=== PATIENT | female | born 1950 | race Caucasian/White ===

== ENCOUNTER 2022-05-20 12:30 | Outpatient (REF) | payer MEDICARE, OTHER, SELFPAY ==
--- NOTE | ~2022-05-20 | XR_ITS ---
EXAMINATION: XR CHEST CLINICAL INFORMATION: R13.10 - Dysphagia, unspecified COMPARISON: None TECHNIQUE: 2 views of the chest were obtained. FINDINGS: The lungs are clear. There is no airspace consolidation, groundglass opacity, or effusion. The heart is normal in size. Vascularity is normal. The costophrenic sulci are clear. The hilar and mediastinal contours are normal. Bony structures show mild multilevel degenerative changes thoracic spine. There are scattered bone islands involving the bilateral humeral heads and proximal humeral shaft which may be related to benign osteopoikilosis. There is also a calcification adjacent to proximal medial neck left humerus consistent with calcific tendinosis in long head biceps. XR/XR chest 2V IMPRESSION: -Lungs clear. No acute intrathoracic disease. 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
--- NOTE | 2022-05-20 12:39 | ECG_ITS ---
Test Reason : RENSTEPHANIES HI Blood Pressure : / mmHG Vent. Rate : 093 BPM Atrial Rate : 093 BPM P-R Int : 156 ms QRS Dur : 126 ms QT Int : 388 ms P-R-T Axes : 056 -79 007 degrees QTc Int : 482 ms Normal sinus rhythm Possible Left atrial enlargement Right bundle branch block Left anterior fascicular block Bifascicular block Abnormal ECG No previous ECGs available Referred By: Marley Perez Electronically Signed By:JERRY LERNER
[2022-05-20 13:02] LABS: MANUAL DIFF FLAG NO
[2022-05-20 13:23] LABS: Basophils Absolute Auto 0.1 X10*3/uL (0.0-0.2); Basophils Percent Auto 0.7 % (0-2); Eosinophils Absolute Auto 0.5 X10*3/uL (0.0-0.4); Eosinophils Percent Auto 6.7 % (0-4); Hematocrit 36.6 % (37.0-47.0); Imm Gran Abs Auto 0.03 X10*3/uL (0.00-0.03); Imm Gran Pct Auto 0.4 % (0.0-0.4); Lymphocytes Absolute Auto 1.7 X10*3/uL (1.2-4.9); Lymphocytes Percent Auto 22.4 % (20-40); Mean Corpuscular HGB Conc 32.8 g/dl (31.0-35.0); Mean Corpuscular Hemoglobin 30.8 pg (27.0-33.0); Mean Corpuscular Volume 94.1 fL (80.0-98.0); Mean Platelet Volume 9.4 fL (9.4-12.3); Monocytes Absolute Auto 0.6 X10*3/uL (0.1-1.2); Monocytes Percent Auto 8.1 % (2-11); Neutrophils Absolute Auto 4.7 x10*3/uL (2.0-8.3); Neutrophils Percent Auto 61.7 % (45-73); Platelet Count 328 X10*3/uL (160-400); Red Blood Count 3.89 X10*6/uL (4.20-5.50); Red Cell Distribution Width 13.3 % (11.0-16.0); White Blood Count 7.7 X10*3/uL (4.8-10.8)
[2022-05-20 14:05] LABS: Alanine Aminotransferase 22 U/L (0-31); Aspartate Amino Transferase 26 U/L (5-31); C Reactive Protein 0.42 mg/dL (< or = 0.50); Estimated Glomerular Filt Rate > 60
[2022-05-20 14:06] LABS: Erythrocyte Sedimentation Rate 55 MM/HR (0-20)
[2022-05-20 14:23] LABS: Creatinine Urine 166.22 mg/dL; Microalbum/Creatinine Ratio Ur 20.4 ug/mg cr
[2022-05-21 12:18] LABS: Anti DNA DS Antibody 1 IU/mL; Anti-Centromere B Antibodies >8.0 POS AI (<1.0 NEG); Antibody to SS-A Antigen <1.0 NEG AI (<1.0 NEG); Antibody to SS-B Antigen <1.0 NEG AI (<1.0 NEG); SM/Ribonucleoprotein Ab <1.0 NEG AI (<1.0 NEG); Scleroderma 70 Antibody <1.0 NEG AI (<1.0 NEG); Smith Protein <1.0 NEG AI (<1.0 NEG)
== END 2022-05-20 12:31 | disposition home or self-care (01) ==
LOC: HO.LAB 12:30
PROVIDERS: PCP Nurse Practitioner Family; Visit Provider Nurse Practitioner Family
DX: R76.8 Other specified abnormal immunological findings in serum (principal); R13.10 Dysphagia, unspecified; I73.00 Raynaud's syndrome without gangrene; R06.09 Other forms of dyspnea; I78.1 Nevus, non-neoplastic
CPT/HCPCS: 36415; 71046; 82043; 82565; 84450; 84460; 85025; 85652; 86038; 86140; 86225; 86235; 93005; 99202

== ENCOUNTER 2022-06-17 14:08 | Outpatient (REF) | payer MEDICARE, OTHER, SELFPAY ==
--- NOTE | 2022-06-17 14:11 | CA_ITS ---
Transthoracic Echocardiogram Patient (Last, First, Middle): Rajani Hart, Gender: Female Date of : 1950 Age: 71 Procedure Date: 06/17/2022 Procedure Type: Transthoracic Echocardiogram Location: OP Height: 160.02 cm Weight: 78.02 kg BSA: 1.81 m2 Heart Rate: bpm BP: 126 / 90 mmHg Senior Health Educator: TO Referring MD: Marley Perez RECRUITMENT SPECIALIST Symptoms: dyspnea on exertion Study Quality: Fair/Contrast ECG Rhythm: Sinus tachycardia Conclusions: - The left ventricular systolic function is hyperdynamic. The calculated ejection fraction is 71% by biplane method. - There is mild calcification of the aortic valve. - There is moderate mitral annular calcification. - There is no evidence of pulmonary hypertension. - There is a small loculated pericardial effusion overlying the left ventricle and right atrium. Findings Procedure Information Contrast agent, definity, is being given per protocol without apparent complications. Left Ventricle Normal left ventricular cavity size. There is mildly increased left ventricular wall thickness. The left ventricular systolic function is hyperdynamic. The calculated ejection fraction is 71% by biplane method. There is no evidence of regional wall motion abnormalities. Diastolic function is normal for age. Right Ventricle Normal right ventricular cavity size and systolic function. Atria Both atria are normal in size. Aortic Valve There is a normal trileaflet aortic valve. There is mild calcification of the aortic valve. There is no aortic valve stenosis. There is no aortic valve regurgitation. Mitral Valve There is moderate mitral annular calcification. There is trace mitral valve regurgitation. There is no mitral valve stenosis. Pulmonic Valve The pulmonic valve is likely normal. Tricuspid Valve There is trace tricuspid valve regurgitation. There is no evidence of pulmonary hypertension. Great Vessels The aortic annulus, sinuses of valsalva, and asc aorta are normal in size. Venous The inferior vena cava is normal in size and collapses greater than 50% with inspiration. Pericardium/Pleural There is a small loculated pericardial effusion overlying the left ventricle and right atrium. Prior Study Comparison No prior study available for comparison. Measurements 2D Linear Measurements IVSd: 1.07 0.6-0.9/0.6-1.0 cm LVIDd: 3.31 3.9-5.3/4.2-5.9 cm LVIDd Index: 1.83 2.4-3.2/2.2-3.1 cm/m2 LVIDs: 2.15 2.0-3.6 cm LVPWd: 1.03 0.7-1.1 cm LA Diam: 3.00 2.7-3.8/3.0-4.0 cm LAIDs Index: 1.66 1.5-2.3 cm/m2 LV Mass: 126.96 67-162/88-224 g LV Mass Index: 70.14 43-95/49-115 g/m2 LVOT Diam: 2.00 3.0+(-)1.3 cm 2D Systolic Function EF 4C: 69.60 >55% EF 2C: 73.80 >55% EF BiP: 71.20 >55% Mitral Valve MV VTI: 0.26 MV Pk Irwin: 1.56 MV Mn Irwin: 0.96 MV Pk Grad: 10.00 MV Mn Grad: 4.00 MV Pk E: 0.79 MV PK A: 1.38 MV Decel Time: 116.00 E/A: 0.60 E'Lateral: 5.66 E'Medial: 5.00 E/E' Med: 15.90 E/E' Lat: 14.00 PHT: 34.00 MVA PHT: 6.47 MVA Continuity: 2.16 Decel [place]: 6.86 Aortic Valve AoV Pk Irwin: 1.43 AoV Mn Irwin: 1.03 AoV VTI: 0.27 AoV Pk Grad: 8.00 Aov Mn Grad: 5.00 VASILIY Cont.VTI: 2.08 LVOT LVOT Pk Irwin: 1.06 LVOT Mn Irwin: 0.70 LVOT VTI: 0.18 LVOT Pk Grad: 4.00 LVOT Mn Grad: 2.00 LVOT Diam: 2.00 LVOT Area: 3.14 Diastolic Function MV Pk E: 0.79 MV Pk A: 1.38 E/A: 0.60 E'Medial: 5.00 E/E' Med: 15.90 E' Laterial: 5.66 E/E' Lat: 14.00 Right Ventricle TAPSE (mm): 22.00 TVS' Irwin: 12.00 Tricuspid Valve TR Pk Irwin: 201.00 TR Pk Grad: 16.00 RA Press: 3.00 Great Vessels Aorta Sinus of Valsalva: 3.08 2.0-3.[address] [place]: 2.22 1.7-3.4 cm Ao Asc: 3.10 2.1-3.4 cm Updated in Other Vendor System with Status of Final Chad Teran MD electronically signed on 06/18/2022 9:08:03 AM with status of Final
--- NOTE | 2022-06-17 16:35 | PFT_ITS ---
FLOWS: FEV1 114% of predicted at 2.41 L. FVC 109% of predicted at 3.06 L. FEV1 to FVC ratio of 0.79. No bronchodilator response except in small to medium airways. LUNG VOLUMES: Total lung capacity 91% of predicted at 4.49 L. Residual volume 69% of predicted at 1.50 L. Slow vital capacity 109% of predicted at 2.99 L. Expiratory reserve volume 147% of predicted at 0.93 L. Diffusion capacity is moderately decreased. IMPRESSION: No obstructive or restrictive ventilatory defect. No bronchodilator response except in small to medium airways. Decreased diffusion capacity suggests emphysema. MD JERRY Huffman/MODL / [id number]
== END 2022-06-17 14:09 | disposition home or self-care (01) ==
LOC: HO.RESP 14:08
PROVIDERS: Visit Provider Nurse Practitioner Family
DX: R76.8 Other specified abnormal immunological findings in serum (principal); I73.00 Raynaud's syndrome without gangrene; R06.09 Other forms of dyspnea
CPT/HCPCS: 93306; 94060; 94727; 94729; Q9957

== ENCOUNTER → 2022-06-19 14:15 | Outpatient (BNVA) | payer MEDICARE, OTHER, SELFPAY | PROVIDERS: PCP Physician Assistant Surgical; Visit Provider Nurse Practitioner Family | DX: R06.09 Other forms of dyspnea (principal); M34.1 CR(E)ST syndrome; R13.10 Dysphagia, unspecified; R76.8 Other specified abnormal immunological findings in serum; I73.00 Raynaud's syndrome without gangrene; I78.1 Nevus, non-neoplastic | CPT/HCPCS: 99212 ==

== ENCOUNTER 2022-06-20 08:49 | Outpatient (REF) | payer MEDICARE, OTHER, SELFPAY ==
--- NOTE | ~2022-06-20 | FL_ITS ---
EXAMINATION: FL BARIUM SWALLOW CLINICAL INFORMATION: Dysphagia COMPARISON: None TECHNIQUE: Barium swallow examination is performed using fluoroscopic evaluation in addition to multiple fluoroscopic spot views. The patient is imaged both upright and prone and using both thick and thin sulfate along with effervescent granules. Fluoroscopy time: 2.5 minutes DAP: 10.9 Gycm2 Images: 56 FINDINGS: Following oral administration of thick barium, barium-coated turkey in upright view, there is normal propagation bolus from the oral cavity through the pharynx, esophagus into stomach without any evidence of obstruction, narrowing or stricture. The course, caliber and peristalsis of the stomach, duodenal bulb and the sweep is normal. On placing patient supine and administration of thin barium, there is normal distention of the esophagus without any obstruction or extrinsic compression. There is a small sliding hiatal hernia with moderate gastroesophageal reflux. FL/FL barium swallow IMPRESSION: Small sliding hiatal hernia with moderate gastroesophageal reflux.
== END 2022-06-20 08:50 | disposition home or self-care (01) ==
LOC: HO.XRAY 08:49
PROVIDERS: PCP Nurse Practitioner Family; Visit Provider Nurse Practitioner Family
DX: R13.10 Dysphagia, unspecified (principal)
CPT/HCPCS: 74220

== ENCOUNTER → 2022-07-04 14:40 | Outpatient (BNVA) | payer MEDICARE, OTHER, SELFPAY | PROVIDERS: PCP Nurse Practitioner Family; Visit Provider Internal Medicine Pulmonary Disease | DX: R06.00 Dyspnea, unspecified (principal); R94.2 Abnormal results of pulmonary function studies; M34.1 CR(E)ST syndrome; Z87.891 Personal history of nicotine dependence | CPT/HCPCS: 99202 ==

== ENCOUNTER → 2022-07-07 10:01 | Outpatient (BNVA) | payer MEDICARE, OTHER, SELFPAY | PROVIDERS: PCP Physician Assistant Surgical; Visit Provider Internal Medicine | DX: R13.10 Dysphagia, unspecified (principal); M34.1 CR(E)ST syndrome; M35.9 Systemic involvement of connective tissue, unspecified; K11.7 Disturbances of salivary secretion | CPT/HCPCS: 99202 ==

== ENCOUNTER 2022-07-11 12:44 | Outpatient (REF) | payer MEDICARE, OTHER, SELFPAY ==
--- NOTE | ~2022-07-11 | CT_ITS ---
EXAMINATION: CT CHEST WITHOUT CONTRAST, HIGH-RESOLUTION. CLINICAL INFORMATION: Dyspnea. COMPARISON: Chest x-ray 05/20/2022 TECHNIQUE: 5 mm axial and high-resolution 1.5 mm thin axial followed by 3 mm thin coronal and sagittal reconstructions of chest were obtained without contrast. DLP: 142 mGy-cm FINDINGS: LUNGS: The lungs are well-expanded and clear of acute pneumonic process. There are several noncalcified and calcified nodules.. There is a 3 mm nodule, left upper lobe, axial image 56/6; 1 mm peripheral nodule, left upper lobe, axial image 95/6; 2 mm thickening left major fissure, axial image 107/6, likely intrafissural lymph node; and a punctate 1 mm calcified nodule, left lung base lateral basal segment, image 173/6. There is 2 mm calcified nodule, right upper lobe, axial image 62/6; 2 mm calcified nodule, right lower lobe superior segment, axial image 93/6; 2 mm 2 nodules adjacent to each other, superior segment right lower lobe, axial image 96/6 and 98/6; 3 mm nodule, medially right upper lobe, axial image 97/6; 5 mm nodule in right major fissure likely lymph node, axial image 124/6, and diffuse mild thickening of inferior right major fissure. MEDIASTINUM: The right thyroid lobe is enlarged and hypodense. The upper trachea is deviated to the left from enlarged thyroid nodule. Central trachea and bronchial airways are widely patent. Heart size and the great vessels are normal caliber. No pericardial effusion seen. There is moderate coronary artery and mitral valve calcifications. No abnormal size mediastinal or hilar lymph nodes seen PLEURA: There is no pleural thickening, effusion or pneumothorax. AXILLA: There is no abnormal axillary lymph nodes seen. The chest wall is unremarkable. UPPER ABDOMEN: Visualized liver, spleen, pancreas and bilateral adrenal glands are unremarkable. No radiopaque gallstone seen. OSSEOUS STRUCTURES: Bone windows reveal no calvarial abnormality. There is mild ventral spondylosis dorsal spine. No aggressive lytic or sclerotic process. CT/CT chest wo con - High Res IMPRESSION: 1. Multiple bilateral calcified and noncalcified nodules in the range of 1 to 3 mm None of these nodules are suspicious. Recommend CT chest in 1 year as per Fleischner guidelines depending on patient risk factors. 2. Enlarged right thyroid lobe with a nodule deviating trachea to the left. Correlate with ultrasound.
== END 2022-07-11 12:45 | disposition home or self-care (01) ==
LOC: HO.CT 12:44
PROVIDERS: Visit Provider Nurse Practitioner Family
DX: R06.09 Other forms of dyspnea (principal); M34.1 CR(E)ST syndrome
CPT/HCPCS: 71250

== ENCOUNTER → 2022-08-11 09:18 | Outpatient (BNVA) | payer MEDICARE, OTHER, SELFPAY | PROVIDERS: PCP Physician Assistant Surgical; Referring Provider Nurse Practitioner Family; Visit Provider Internal Medicine Cardiovascular Disease | DX: R06.09 Other forms of dyspnea (principal); I45.2 Bifascicular block; I31.39 Other pericardial effusion (noninflammatory); I10 Essential (primary) hypertension | CPT/HCPCS: 93005; 99202 ==

== ENCOUNTER → 2022-08-13 11:48 | Outpatient (BNVA) | payer MEDICARE, OTHER, SELFPAY | PROVIDERS: PCP Physician Assistant Surgical; Visit Provider Nurse Practitioner Family | DX: R13.10 Dysphagia, unspecified (principal); R76.8 Other specified abnormal immunological findings in serum; I73.00 Raynaud's syndrome without gangrene; R06.09 Other forms of dyspnea; E04.9 Nontoxic goiter, unspecified; I78.1 Nevus, non-neoplastic | CPT/HCPCS: 99212 ==

== ENCOUNTER 2022-08-14 10:14 | Outpatient (REF) | payer MEDICARE, OTHER, SELFPAY ==
--- NOTE | ~2022-08-14 | US_ITS ---
EXAMINATION: US THYROID CLINICAL INFORMATION: Enlarged thyroid. COMPARISON: None TECHNIQUE: Linear transducer grayscale and color Doppler examination with attention to the region of the thyroid. FINDINGS: SIZE: Measurements of the thyroid lobes and nodules are given in sagittal, anteroposterior and transverse dimensions respectively. Right Thyroid Lobe: 5.33 x 2.04 x 1.85 cm, volume 10.6 mL. Parenchyma: The gland echotexture is heterogeneous. Thyroid vascularity is increased. Left Thyroid Lobe: 5.18 x 1.59 x 0.74 cm, volume 3.19 mL. Parenchyma: The gland echotexture is homogeneous. Thyroid vascularity is normal. Isthmus: 0.23 cm in maximum AP dimension. Estimated total number of nodules greater than or equal to 1 cm: 1. Nurse Ldr nodules are described as follows: 1. Location: Right inferior. Size: 3.5 x 1.8 x 1.8 cm, volume 0.57 mL. Nodule characteristics: Composition: Solid (2). Echogenicity: Hypoechoic (2). Shape: Not taller than wide (0). Margins: Smooth (0). Echogenic Foci: None (0). ACR TI-RADS total points: 4 ACR TI-RADS category: 4 2. Location: Right superior. Size: 0.80 x 0.71 x 0.90 cm, volume 0.27 mL. Nodule characteristics: Composition: Solid (2). Echogenicity: Hypoechoic (2). Shape: Not taller than wide (0). Margins: Smooth (0). Echogenic Foci: None (0). ACR TI-RADS total points: 4 ACR TI-RADS category: 4 NODES: No lymphadenopathy is seen in the tissue surrounding the thyroid gland. US/US thyroid IMPRESSION: Enlarged right thyroid lobe with a solitary large nodule measuring 3.5 cm in the lower pole. Based on TI-RADS scoring, an ultrasound-guided biopsy should be performed on this large, solid nodule. ACR TI-RADS RECOMMENDATION REFERENCE: Ultrasound-guided fine-needle aspiration, followup ultrasound, no further follow up. * TR1 (0 point) and TR 2 (2 points): No FNA or follow up. * TR3 (3 points): FNA if more than or equal to 2.5 cm in maximum dimension, followup ultrasound in 1, 3 and 5 years if 1.5 to 2.4 cm in maximum dimension. * TR4 (4-6 points): FNA if more than or equal to 1.5 cm in maximum dimension, followup ultrasound in 1, 2, 3 and 5 years if 1 to 1.4 cm in maximum dimension. * TR5 (more than or equal to 7 points): FNA if more than or equal to 1 cm in maximum dimension, followup ultrasound every year for 5 years if 0.5 to 0.9 cm in maximum dimension. * TR3, TR4 or TR5 nodules that are below the size threshold for followup receive no follow up.
== END 2022-08-14 10:15 | disposition home or self-care (01) ==
LOC: HO.HMGCX 10:14
PROVIDERS: Visit Provider Nurse Practitioner Family
DX: Z01.89 Encounter for other specified special examinations (principal); M34.1 CR(E)ST syndrome; E04.9 Nontoxic goiter, unspecified
CPT/HCPCS: 76536

== ENCOUNTER → 2022-08-15 13:27 | Outpatient (BNVA) | payer MEDICARE, OTHER, SELFPAY | PROVIDERS: PCP Physician Assistant Surgical; Visit Provider Internal Medicine Pulmonary Disease | DX: R06.09 Other forms of dyspnea (principal); R94.2 Abnormal results of pulmonary function studies; M34.1 CR(E)ST syndrome | CPT/HCPCS: Q3014 ==

== ENCOUNTER → 2022-08-21 08:29 | Outpatient (REF) | payer MEDICARE, OTHER, SELFPAY ==
--- NOTE | 2022-08-21 08:33 | CA_ITS ---
Acquisition Time: 2022-08-21 09:34:40 Total Exercise Time: 00:04:48 Test Indications: SOB, RBBB Medications: SEE CHART Protocol: JAMES Max HR: 171 BPM 114% of Pred: 149 BPM Max BP: 178/064 mmHG Max Work Load: 5.2 METS Exercise stress test with exercise 4 min 48 sec of James protocol ( speed reduced down to 2.2, then 2.0 then 1.7 MPH in stage 2) , with severe sob, no chest discomfort, with isolated PVC, with normotensive response to exercise, without EKG changes meeting criteria for ischemia. In recovery her breathing gradually normalized. Nuclear images pending. Test reviewed with Dr Bermudez. Referred By: Cristofer Bermudez Overread By: REGINA HERNÁNDEZ
== END ==
LOC: HO.CARD 08:29
PROVIDERS: Visit Provider Internal Medicine Cardiovascular Disease
DX: I31.39 Other pericardial effusion (noninflammatory) (principal); R06.09 Other forms of dyspnea
CPT/HCPCS: 78452; 93017; 93308; A9500; J0280; J2785

== ENCOUNTER 2022-09-22 09:59 | Outpatient (REF) | payer MEDICARE, OTHER, SELFPAY ==
[2022-09-22 10:55] LABS: MANUAL DIFF FLAG NO
[2022-09-22 11:55] LABS: INTERNATIONAL NORM RATIO 0.9 (0.9-1.1); Prothrombin Time 9.8 SEC (10.0-13.1)
[2022-09-22 11:56] LABS: Basophils Absolute Auto 0.1 X10*3/uL (0.0-0.2); Basophils Percent Auto 0.7 % (0-2); Eosinophils Absolute Auto 0.4 X10*3/uL (0.0-0.4); Eosinophils Percent Auto 3.4 % (0-4); Hemoglobin 12.8 g/dl (12.0-16.0); Imm Gran Abs Auto 0.04 X10*3/uL (0.00-0.03); Imm Gran Pct Auto 0.4 % (0.0-0.4); Lymphocytes Absolute Auto 2.2 X10*3/uL (1.2-4.9); Lymphocytes Percent Auto 20.6 % (20-40); Mean Corpuscular HGB Conc 32.8 g/dl (31.0-35.0); Mean Corpuscular Hemoglobin 31.8 pg (27.0-33.0); Mean Corpuscular Volume 96.8 fL (80.0-98.0); Mean Platelet Volume 9.5 fL (9.4-12.3); Monocytes Absolute Auto 0.9 X10*3/uL (0.1-1.2); Monocytes Percent Auto 8.1 % (2-11); Neutrophils Percent Auto 66.8 % (45-73); Platelet Count 381 X10*3/uL (160-400); Red Blood Count 4.03 X10*6/uL (4.20-5.50); Red Cell Distribution Width 13.8 % (11.0-16.0); White Blood Count 10.5 X10*3/uL (4.8-10.8)
[2022-09-22 13:05] LABS: Free T4 (Free Thyroxine) 1.14 ng/dL (0.71-1.85)
[2022-09-22 14:04] LABS: Anion Gap 14 (12-20); Blood Urea Nitrogen 25 mg/dL (9-16); Calcium 9.3 mg/dL (8.4-10.2); Carbon Dioxide 29 mmol/L (22-29); Chloride 107 mmol/L (96-108); Estimated Glomerular Filt Rate > 60; Glucose Random 104 mg/dL (60-115); Sodium 146 mmol/L (135-145)
[2022-09-22 14:05] LABS: Thyroid Stimulating Hormone 2.33 uIU/mL (0.32-4.0)
== END 2022-09-22 10:00 | disposition home or self-care (01) ==
LOC: HO.LAB 09:59
PROVIDERS: Internal Medicine Cardiovascular Disease; PCP Nurse Practitioner Family; Visit Provider Internal Medicine
DX: E04.2 Nontoxic multinodular goiter (principal); R06.09 Other forms of dyspnea; R94.39 Abnormal result of other cardiovascular function study; Z79.899 Other long term (current) drug therapy; Z87.891 Personal history of nicotine dependence
CPT/HCPCS: 36415; 80048; 84439; 84443; 85025; 85610; 99202

== ENCOUNTER 2022-09-29 13:18 | Outpatient (REF) | payer MEDICARE, OTHER, SELFPAY ==
--- NOTE | ~2022-09-29 | CT_ITS ---
EXAMINATION: CT SOFT TISSUE NECK WITHOUT CONTRAST CLINICAL INFORMATION: Nontoxic multinodular goiter. COMPARISON: Thyroid ultrasound 08/14/2022. TECHNIQUE: Helical imaging was performed in the axial plane with generation of coronal and sagittal reformatted images. This CT examination was performed using dose optimization techniques as appropriate, variously including the following: *Automated exposure control *Adjustment of mA and/or kV according to patient size (this includes techniques or standardized protocols for targeted exams where dose is matched to indication/reason for exam; i.e. extremities or head) *Use of iterative reconstruction technique DLP: 328 mGy-cm FINDINGS: There is redemonstration of nodules within the right thyroid gland, better defined on the recent ultrasound. There is no infiltration within the soft tissues adjacent to the thyroid. No pretracheal or prelaryngeal adenopathy is seen. No enlarged or cystic appearing cervical chain lymph nodes are noted. Nonenlarged lymph nodes are seen along the bilateral cervical chains. Innumerable small and punctate calcifications are seen within the parotid glands. The submandibular glands are atrophic. The pharyngeal and laryngeal contours appear normal acknowledging some limited assessment related to motion artifact. No enlarged upper mediastinal lymph nodes are seen. Atheromatous calcifications are noted within the aorta and major neck arteries. There is no consolidation within the upper lungs. No acute intracranial abnormality is seen. Mild to moderate degenerative changes are noted within the spine. No evidence of high-grade spinal canal stenosis. No destructive lesions. CT/CT soft tissue neck wo IV con IMPRESSION: Redemonstration of nodules within the right thyroid gland, better defined on the recent ultrasound. No evidence of infiltration within the adjacent soft tissues. No enlarged or cystic-appearing cervical chain lymph nodes are seen. Numerous calculi within the parotid glands likely reflecting sequela of chronic inflammation.
== END 2022-09-29 13:19 | disposition home or self-care (01) ==
LOC: HO.CT 13:18
PROVIDERS: Visit Provider Internal Medicine
DX: E04.2 Nontoxic multinodular goiter (principal)
CPT/HCPCS: 70490

== ENCOUNTER 2022-10-27 13:36 | Outpatient (REF) | payer MEDICARE, OTHER, SELFPAY ==
[2022-10-27 13:59] LABS: MANUAL DIFF FLAG NO
[2022-10-27 16:01] LABS: Basophils Percent Auto 0.3 % (0-2); Eosinophils Absolute Auto 0.1 X10*3/uL (0.0-0.4); Eosinophils Percent Auto 0.7 % (0-4); Hematocrit 37.6 % (37.0-47.0); Hemoglobin 12.6 g/dl (12.0-16.0); Imm Gran Abs Auto 0.05 X10*3/uL (0.00-0.03); Imm Gran Pct Auto 0.6 % (0.0-0.4); Lymphocytes Percent Auto 11.7 % (20-40); Mean Corpuscular HGB Conc 33.5 g/dl (31.0-35.0); Mean Corpuscular Hemoglobin 32.9 pg (27.0-33.0); Mean Corpuscular Volume 98.2 fL (80.0-98.0); Mean Platelet Volume 10.6 fL (9.4-12.3); Monocytes Absolute Auto 0.3 X10*3/uL (0.1-1.2); Monocytes Percent Auto 3.6 % (2-11); Neutrophils Absolute Auto 7.4 x10*3/uL (2.0-8.3); Neutrophils Percent Auto 83.1 % (45-73); Platelet Count 327 X10*3/uL (160-400); Red Blood Count 3.83 X10*6/uL (4.20-5.50); Red Cell Distribution Width 14.2 % (11.0-16.0); White Blood Count 8.9 X10*3/uL (4.8-10.8)
[2022-10-27 16:07] LABS: INTERNATIONAL NORM RATIO 0.9 (0.9-1.1)
[2022-10-27 16:24] LABS: Anion Gap 15 (12-20); Blood Urea Nitrogen 20 mg/dL (9-16); Calcium 9.1 mg/dL (8.4-10.2); Carbon Dioxide 24 mmol/L (22-29); Chloride 110 mmol/L (96-108); Estimated Glomerular Filt Rate > 60; Glucose Random 120 mg/dL (60-115); Potassium 4.2 mmol/L (3.3-5.1); Sodium 145 mmol/L (135-145)
== END 2022-10-27 13:37 | disposition home or self-care (01) ==
LOC: HO.LAB 13:36
PROVIDERS: PCP Nurse Practitioner Family; Visit Provider Internal Medicine Cardiovascular Disease
DX: Z01.818 Encounter for other preprocedural examination (principal); I10 Essential (primary) hypertension; R06.09 Other forms of dyspnea; R94.39 Abnormal result of other cardiovascular function study
CPT/HCPCS: 36415; 80048; 85025; 85610

== ENCOUNTER → 2022-11-06 14:55 | Outpatient (BNVA) | payer MEDICARE, OTHER, SELFPAY | PROVIDERS: PCP Nurse Practitioner Family; Visit Provider Nurse Practitioner Family | DX: R94.39 Abnormal result of other cardiovascular function study (principal); I45.2 Bifascicular block; I31.39 Other pericardial effusion (noninflammatory); R06.09 Other forms of dyspnea; Z98.890 Other specified postprocedural states | CPT/HCPCS: 99212 ==

== ENCOUNTER → 2022-12-12 11:35 | Outpatient (BNVA) | payer MEDICARE, OTHER, SELFPAY | PROVIDERS: PCP Nurse Practitioner Family; Visit Provider Nurse Practitioner Family | DX: M34.1 CR(E)ST syndrome (principal); R13.10 Dysphagia, unspecified; R76.8 Other specified abnormal immunological findings in serum; I78.1 Nevus, non-neoplastic; R06.09 Other forms of dyspnea; E04.9 Nontoxic goiter, unspecified | CPT/HCPCS: 99212 ==

== ENCOUNTER 2023-01-08 09:42 | Outpatient (REF) | payer MEDICARE, OTHER, SELFPAY ==
--- NOTE | 2023-01-08 10:30 | P.BOP_ITS ---
Brief Operative Note Date of Service: 01/08/23 Pre-op diagnosis: Multinodular Thyroid Procedure: This is doctor Maci Gomez. This is an ultrasound-guided fine-needle aspiration report. Indication: Multinodular Thyroid Porcedure: Procedure was explained to the patient. Alternatives, the risk and benefits were discussed. Written consent was obtained. A time-out was also obtained. After sterile preparation, 1 ml of 1% lidocaine solution was applied subcutaneously for anesthetic effect. Then Fine-needle aspiration of a right lower pole 3.5 cm thyroid nodule was performed using direct ultrasound guidance to confirm accurate needle placement. Four aspirations were made using 27 gauge needles. An additional three aspirations were made using 25 guage needles. Samples were submitted for cytology. One pass was dedicated for [employer] sequencing bioinformatics assistant testing. The patient tolerated the procedure well. Aftercare instructions were provided. Impression: Uncomplicated fine needle aspiration biopsy of a right lower pole 3.5 cm thyroid nodule under ultrasound guidance. Surgeon: Maci Gomez, DO Was an Auto Body Straightener used for this Procedure?: No Estimated blood loss (mL): 0
== END 2023-01-08 09:43 | disposition home or self-care (01) ==
LOC: HO.US 09:42
PROVIDERS: PCP Family Medicine; Visit Provider Internal Medicine
DX: E04.2 Nontoxic multinodular goiter (principal)
CPT/HCPCS: 10005; 88172; 88173; 88177; 88305

== ENCOUNTER → 2023-01-22 12:08 | Outpatient (BNVA) | payer MEDICARE, OTHER, SELFPAY | PROVIDERS: PCP Family Medicine; Visit Provider Internal Medicine | DX: E04.2 Nontoxic multinodular goiter (principal); Z98.890 Other specified postprocedural states | CPT/HCPCS: 99212 ==

== ENCOUNTER 2023-02-17 09:44 | Outpatient (REF) | payer MEDICARE, OTHER, SELFPAY ==
--- NOTE | ~2023-02-17 | US_ITS ---
EXAMINATION: US EXTRACRANIAL CAROTID DUPLEX, BILATERAL CLINICAL INFORMATION: Disorders of arteries and arterioles. COMPARISON: None available. TECHNIQUE: Real-time ultrasound and Doppler techniques (integrating B-mode 2-D vascular images, Doppler spectral analysis and color-flow Doppler imaging) were utilized to interrogate the extracranial carotid arteries, the vertebral arteries and proximal subclavian arteries bilaterally. The degree of stenosis is determined by criteria similar to NASCET. FINDINGS: Right Side: 1. There is mild atherosclerotic plaque seen in the bifurcation/proximal ICA region. 2. The common carotid artery PSV proximally is 109 cm/s and distally 83 cm/s. 3. The proximal internal carotid artery velocities are 89 cm/s systolic and 23 cm/s diastolic. 4. The proximal external carotid artery PSV is 122 cm/s. 5. The vertebral artery shows antegrade flow. 6. The subclavian artery waveforms are normal. Left Side: 1. There is mild atherosclerotic plaque seen in the bifurcation/proximal ICA region. 2. The common carotid artery PSV proximally is 98 cm/s and distally 83 cm/s. 3. The proximal internal carotid artery velocities are 65 cm/s systolic and 18 cm/s diastolic. 4. The proximal external carotid artery PSV is 93 cm/s. 5. The vertebral artery shows antegrade flow. 6. The subclavian artery waveforms are normal. Incidental note made of a right thyroid nodule measuring 2.6 x 1.6 x 1.5 cm. This was biopsied on 01/08/2023. US/US carotid duplex BI IMPRESSION: 1. RIGHT: Minimal, non-hemodynamically significant stenosis of the proximal right internal carotid artery corresponding to a 0-49% stenosis by velocity criteria. 2. LEFT: Minimal, non-hemodynamically significant stenosis of the proximal left internal carotid artery corresponding to a 0-49% stenosis by velocity criteria.
== END 2023-02-17 09:45 | disposition home or self-care (01) ==
LOC: HO.US 09:44
PROVIDERS: Visit Provider Internal Medicine Cardiovascular Disease
DX: I77.9 Disorder of arteries and arterioles, unspecified (principal); I65.23 Occlusion and stenosis of bilateral carotid arteries
CPT/HCPCS: 93880

== ENCOUNTER 2023-04-10 12:11 | Outpatient (AMB) | payer MEDICARE, OTHER, SELFPAY ==
[2023-04-10 12:36] VITALS: BP 160/90; PULSE 88; O2SAT 95; BMI 29.0
--- NOTE | 2023-04-10 12:36 | A.OFFPC_ITS ---
Vital Signs 04/10/23 12:36 Height 5 ft 3 in Weight 164 lb BMI 29.0 BP 160/90 H Blood Pressure Location Lt brachial Position Sitting Pulse 88 Pulse Source Pulse Oximeter Pulse Oximetry (%) 95 Oxygen Delivery Method Room Air Intake Visit Reasons: New patient-Carotid artery Intake Note: Patient is a new patient here to establish care for HTN . Transferring care from [facility]. Medical records have been requested. Dental Claims Processor Required: No Accompanied by: Self / Same As Patient Allergies codeine Allergy (Severe, Verified 04/10/23 12:55) felt like going to propranolol Allergy (Intermediate, Verified 04/10/23 12:55) dizziness Seasonal Allergies Allergy (Intermediate, Verified 04/10/23 12:55) Sneezing, vertigo Medication List - Last Reconciled 04/10/23 by TIMMY Lovett amlodipine 5 mg PO DAILY hydrochlorothiazide 25 mg PO Q OTHER DAY levothyroxine 75 mcg PO DAILY prednisone 5 mg PO DAILY Tobacco use date assessed: 04/10/23 Fall risk assessment: No Falls in past year Last assessed Fall Risk: 04/10/23 Dental Screening Dental Screen Date: 04/10/23 Did you have a dental visit in the last 12 months?: Yes Did you have a dental problem in the last 6 months where you did not have access to dental care?: No Was dental information given to patient?: Patient has dentist HPI HPI Comments History of Present Illness Details 72-year-old female new patient presents today to establish care. Past medical history significant for CAD status post cardiac catheterization [facility] 11/20/22 normal carotid arteries, hypothyroid, hypertension and CREST. Patient reports was previously on atorvastatin 40 mg daily however patient spoke with her previous PCP and due to dietary changes she had made it was discontinued about 2 months ago. Patient denies any chest pain, palpitations, shortness of breath syncope. Patient denies any need for refills at this time. Blood pressure elevated in office today 157/90 patient reports to take her amlodipine today takes hydrochlorothiazide every 3rd day. Patient states she is unsure if she took the hydrochlorothiazide today are not. Patient currently following with Dr. Collado for rhematology, cardiology and pulmonology for dyspnea on exertion her CT chest that showed no significant fibrosis, but some small pulmonary nodules.? Patient currently on prednisone 5 mg daily, which she reports has been working well for her. Previous patient Dr. Ruano, records have been requested. . [facility] Medical History Dysphagia Multinodular thyroid Telangiectasia Surgical History H/O breast biopsy Hx of colonoscopy S/P cardiac cath S/P tooth extraction Family History Father Heart disease Sister Ovarian cancer Brother Heart attack Stroke Mother Thyroid disease Brother Asthma Social History Household Members: Spouse Housing: House Do you presently have visiting nurse or other home services: No Alcohol intake: never Patient Tobacco Use Status: Former Tobacco user Quit Date: Tobacco use type: Cigarette Years Smoked: 20 +/- e-Cigarette/Vaping Use: Never Used service: No Current occupational status: retired 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 1. Little interest or pleasure in doing things: not at all 2. Feeling down, depressed, or hopeless: not at all 3. Trouble falling or staying asleep, or sleeping too much: not at all 4. Feeling tired or having little energy: not at all 5. Poor appetite or overeating: not at all 6. Feeling bad about yourself - or that you are a failure or have let yourself or your family down: not at all 7. Trouble concentrating on things, such as reading the newspaper or watching television: not at all 8. Moving or speaking so slowly that other people could have noticed. Or the opposite - being so fidgety or restless that you have been moving around a lot more than usual: not at all 9. Thoughts that you would be better off or of hurting yourself in some way: not at all Total score: 0 Depression Screening Interpretation: Negative 12386 - PHQ-9 Billing: Yes Source: Developed by Drs. Carson Malinda Benjamin Kurt Kroenke and colleagues, with an educational kevin from [employer]. AUDIT C Alcohol Use Questionnaire (AUDIT-C) 1. How often do you have a drink containing alcohol?: Never 3. How often do you have six or more drinks on one occasion?: Never Total Score: 0 DEANN-7 AMB Questionnaire DEANN-7 Date DEANN - 7 assessed: 04/10/23 Feeling nervous, anxious, or on edge: 0 = Not at all Not being able to stop or control worryin = Not at all Worrying too much about different things: 0 = Not at all Trouble relaxin = Not at all Being so restless that it is hard to sit still: 0 = Not at all Becoming easily annoyed or irritable: 0 = Not at all Feeling afraid as if something awful might happen: 0 = Not at all Total DEANN-7 score (0-4 normal; 5-9 mild; 10-14 moderate; 15-21 severe): 0 Source: Developed by Drs. Carson Quiles, Tang Mantilla and colleagues, with an educational kevin from [employer]. DEANN-7 Assessment Billing DEANN-7 Assessment Tool: DEANN-7 Assessment 57963 Review of Systems Const Denies chills, Denies fatigue, Denies fever(s) and Denies poor appetite Eyes Denies no additional complaints ENT Reports Normal hearing present Card Denies chest pain, Denies syncope, Denies rapid heart rate and Denies dyspnea Resp Denies cough and Denies dyspnea GI Denies change in stool character, Denies constipation, Denies diarrhea, Denies nausea and Denies vomiting Denies urinary frequency, Denies dysuria and Denies urinary urgency Neuro Reports Normal hearing present, Denies confusion and Denies syncope Psych Denies confusion Endo Denies fatigue Physical exam (Primary Care) Vital Signs: Last Vital Signs Pulse 88 04/10/23 12:36 BP 160/90 H 04/10/23 12:36 Pulse Ox 95 04/10/23 12:36 Oxygen Delivery Method Room Air 04/10/23 12:36 BMI result Body Mass Index 29.0 Tobacco/Smoking Status: Tobacco use Status Tobacco use date assessed 04/10/23 04/10/23 12:44 Patient Tobacco Use Status Former Tobacco user 04/10/23 12:44 Tobacco use type Cigarette 04/10/23 12:44 e-Cigarette/Vaping Use Never Used 04/10/23 12:44 PHQ-9: PHQ-9 Score PHQ-9: Total score 0 04/10/23 12:53 Depression Screening Interpretation: Negative Const General: No confusion Orientation/consciousness: No confusion HENMT Head: Yes normocephalic and Yes atraumatic Eyes Conjunctivae: conjunctivae normal Chest Chest palpation & inspection: normal inspection of the chest Resp Effort & Inspection: normal respiratory effort Auscultation: clear to auscultation bilaterally, no crackles, no rhonchi and no wheezes Cardio Rate: regular rate Rhythm: regular rhythm Heart sounds: S1 normal heart sound present and S2 normal heart sound present GI Inspection: Yes normal to inspection Neuro General: No confusion Cranial nerves: Yes Normal hearing present Extrem General: No edema Assessment and Plan Assessment & Plan (1) Hypertension: Code(s): I10 - Essential (primary) hypertension Plan: Continue on amlodipine and hydrochlorothiazide. Patient advised to monitor blood pressures home after sitting down for 3-5 minutes and keep a log if blood pressures remain elevated may need to increase frequency of for her hydrochlorothiazide as she reports only takes this every 3rd day. (2) Hypothyroid: Code(s): E03.9 - Hypothyroidism, unspecified Plan: Continue on levothyroxine 75 mcg daily. (3) Carotid arterial disease: Code(s): I77.9 - Disorder of arteries and arterioles, unspecified Plan: Continue to follow with Cardiology. (4) CREST (calcinosis, Raynaud's phenomenon, esophageal dysfunction, sclerodactyly, telangiectasia): Code(s): M34.1 - CR(E)ST syndrome Plan: Continue to follow rheumatology. Plan Follow-up in 3 months for physical exam. Orders: Orders Comprehensive [place]. Panel Fast Today I10 - Essential (primary) hypertension Lipid Panel Today I77.9 - Disorder of arteries and arterioles, unspecified TSH reflex Free T4 Today E03.9 - Hypothyroidism, unspecified Complete Blood Count Auto Diff Today Z13.0 - Encounter for screening for diseases of the blood and blood-forming organs and certain disorders involving the immune mechanism Coding Level of Care Code New Pt Level 4 (88218) Diagnoses Hypertension I10 Hypothyroid E03.9 Carotid arterial disease I77.9 CREST (calcinosis, Raynaud's phenomenon, esophageal dysfunction, sclerodactyly, telangiectasia) M34.1 Additional Codes DEANN-7 Assessment Billing - DEANN-7 Assessment Tool: DEANN-7 Assessment 13717 ([id number])
== END 2023-04-10 13:26 | disposition home or self-care (01) ==
PROVIDERS: PCP Family Medicine; Visit Provider Nurse Practitioner Family
DX: I10 Essential (primary) hypertension (principal); E03.9 Hypothyroidism, unspecified; I77.9 Disorder of arteries and arterioles, unspecified; M34.1 CR(E)ST syndrome
CPT/HCPCS: 99204

== ENCOUNTER 2023-04-27 10:33 | Outpatient (REF) | payer MEDICARE, OTHER, SELFPAY ==
--- NOTE | ~2023-04-27 | XR_ITS ---
EXAMINATION: XR FOOT, RIGHT CLINICAL INFORMATION: Pain in right toes COMPARISON: None available. TECHNIQUE: AP, lateral, and oblique views of the right foot. FINDINGS: Mild dorsal and plantar calcaneal spurring. Curvilinear soft tissue calcifications posterior to the talus on the lateral view, incompletely imaged. Spurring with small adjacent ossicle along the base of the fifth metatarsal. Moderate degenerative changes first metatarsophalangeal joint with joint space narrowing and hypertrophic change. Moderate degenerative changes first metatarsophalangeal joint. Abundant amorphous calcifications in the soft tissues between the first and second metatarsals, largest 1.9 cm between the shafts of the first and second metatarsals. Smaller soft tissue calcification medial to the fifth metatarsal head. XR/XR foot RT 2V IMPRESSION: Moderate degenerative changes first metatarsophalangeal joint. Abundant amorphous calcifications in the soft tissues between the first and second metatarsals, largest 1.9 cm between the shafts of the first and second metatarsals. Curvilinear soft tissue calcifications posterior to the talus on the lateral view, incompletely imaged. Dedicated views of the ankle recommended for further evaluation. Additional imaging with CT scan or MRI should be considered for better visualization as these modalities are much more sensitive for detection of fracture or other underlying pathology.
[2023-04-27 10:56] LABS: MANUAL DIFF FLAG NO
[2023-04-27 11:02] LABS: Basophils Percent Auto 0.5 % (0-2); Eosinophils Absolute Auto 0.2 X10*3/uL (0.0-0.4); Eosinophils Percent Auto 2.8 % (0-4); Hematocrit 35.9 % (37.0-47.0); Hemoglobin 11.9 g/dl (12.0-16.0); Imm Gran Abs Auto 0.02 X10*3/uL (0.00-0.03); Imm Gran Pct Auto 0.2 % (0.0-0.4); Lymphocytes Absolute Auto 1.3 X10*3/uL (1.2-4.9); Lymphocytes Percent Auto 15.5 % (20-40); Mean Corpuscular HGB Conc 33.1 g/dl (31.0-35.0); Mean Corpuscular Hemoglobin 32.1 pg (27.0-33.0); Mean Corpuscular Volume 96.8 fL (80.0-98.0); Mean Platelet Volume 9.2 fL (9.4-12.3); Monocytes Absolute Auto 0.8 X10*3/uL (0.1-1.2); Platelet Count 352 X10*3/uL (160-400); Red Blood Count 3.71 X10*6/uL (4.20-5.50); White Blood Count 8.3 X10*3/uL (4.8-10.8)
[2023-04-27 12:31] LABS: Alanine Aminotransferase 12 U/L (0-31); Albumin Level 3.7 g/dL (3.5-5.0); Alkaline Phosphatase 91 U/L (39-117); Anion Gap 12 (12-20); Aspartate Amino Transferase 16 U/L (5-31); Bilirubin Total 0.7 mg/dL (0.0-1.0); Blood Urea Nitrogen 12 mg/dL (9-16); Calcium 9.4 mg/dL (8.4-10.2); Carbon Dioxide 29 mmol/L (22-29); Chloride 107 mmol/L (96-108); Cholesterol 181 mg/dL (<200); Estimated Glomerular Filt Rate > 60; Glucose Fasting 97 mg/dL (60-99); HDL Cholesterol 35 mg/dL (>40); LDL Cholesterol Calculated 109 mg/dL (<100); Potassium 4.1 mmol/L (3.3-5.1); Sodium 144 mmol/L (135-145); TSH reflex Free T4 2.53 uIU/mL (0.32-4.0); Total Protein 6.8 g/dL (6.5-8.0); Triglycerides 187 mg/dL (<150); Uric Acid 4.5 mg/dL (2.4-5.7)
== END 2023-04-27 10:34 | disposition home or self-care (01) ==
LOC: HO.XRAY 10:33
PROVIDERS: PCP Nurse Practitioner Family; Visit Provider Nurse Practitioner Family
DX: Z13.0 Encounter for screening for diseases of the blood and blood-forming organs and certain disorders involving the immune mechanism (principal); M79.674 Pain in right toe(s); M79.671 Pain in right foot; E03.9 Hypothyroidism, unspecified; I10 Essential (primary) hypertension; I77.9 Disorder of arteries and arterioles, unspecified
CPT/HCPCS: 36415; 73620; 80053; 80061; 84443; 84550; 85025

== ENCOUNTER → 2023-05-25 08:54 | Outpatient (REF) | payer MEDICARE, OTHER, SELFPAY ==
--- NOTE | 2023-05-25 08:59 | CA_ITS ---
Transthoracic Echocardiogram Patient (Last, First, Middle): Rajani Hart, Gender: Female Date of : 1950 Age: 72 Procedure Date: 05/25/2023 Procedure Type: Transthoracic Echocardiogram Location: OP Height: 160.02 cm Weight: 77.11 kg BSA: 1.80 m2 Heart Rate: 87 bpm BP: 155 / 80 mmHg Freight Elevator Erector: LUX Romero MD: Germaine Mead OPTICAL FABRICATOR-C Symptoms: I31.39 - Other pericardial effusion (noninflammatory) Study Quality: Adequate (Limited Echo) ECG Rhythm: Sinus Conclusions: - Small pericardial effusion mostly loculated around right atrium Findings Pericardium/Pleural There is a small loculated pericardial effusion overlying the right atrium. There are no definitive echocardiographic findings of tamponade physiology. There are no definitive echocardiographic findings of constrictive physiology. Prior Study Comparison No significant change compared to prior study dated: 08/21/2022. Measurements Tricuspid Valve TR Pk Irwin: 2.23 TR Pk Grad: 20.00 RA Press: 3.00 RVSP: 23.00 Updated in Other Vendor System with Status of Final Rex Winkler MD electronically signed on 05/26/2023 11:34:49 AM with status of Final
== END ==
LOC: HO.CARD 08:54
PROVIDERS: PCP Nurse Practitioner Family; Visit Provider Nurse Practitioner Family
DX: I31.39 Other pericardial effusion (noninflammatory) (principal)
CPT/HCPCS: 93308

== ENCOUNTER → 2023-05-25 08:59 | Outpatient (BNV) | payer MEDICARE, OTHER, SELFPAY | PROVIDERS: PCP Nurse Practitioner Family; Visit Provider Internal Medicine Cardiovascular Disease | DX: I31.39 Other pericardial effusion (noninflammatory) (principal) | CPT/HCPCS: 93308 ==

== ENCOUNTER 2023-06-01 09:16 | Outpatient (AMB) | payer MEDICARE, OTHER, SELFPAY ==
--- NOTE | 2023-06-01 09:28 | MHC.OFFVIS ---
Intake Vital Signs 06/01/23 09:29 Height 5 ft 3 in Weight 168 lb 13.985 oz BMI 29.9 BP 150/80 H Blood Pressure Location Lt brachial Position Sitting Pulse 94 Intake Visit Reasons: f/u after echo Intake Note: follow up w/ EKG Lumber Sorter Required: No Accompanied by: Self / Same As Patient Allergies codeine Allergy (Severe, Verified 06/01/23 09:29) felt like going to propranolol Allergy (Intermediate, Verified 06/01/23 09:29) dizziness Seasonal Allergies Allergy (Intermediate, Verified 06/01/23 09:29) Sneezing, vertigo Medication List - Last Reconciled 06/01/23 by Cristofer Bermudez MD amlodipine 5 mg PO DAILY hydrochlorothiazide 25 mg PO Q OTHER DAY levothyroxine 75 mcg PO DAILY prednisone 5 mg PO DAILY 30 days HPI HPI Comments History of Present Illness Details 72-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 She has been experiencing shortness of breath for long time. She was a smoker from age [age] and smoke heavily. She had pulmonary function test done recently which reveals some concern for emphysema. She has been on inhalers without any change in her breathing. She is saying she is able to walk a block and go up a flight of stairs but after that she gets shortness of breath which limits her activity. She has no chest discomfort. She underwent echocardiography to rule out pulmonary hypertension and there was no evidence of pulmonary hypertension on that. There was small pericardial effusion noticed. She has Raynaud's and hypertension and has been taking hydrochlorothiazide and amlodipine with good control blood pressure as well as Raynaud. She has been following with GI and Rheumatology. 06/01/23: She returns for follow-up. Her blood pressure is elevated in the office 150/80. Also on April 10 she had blood pressure checked which was 160/90. She has been taking hydrochlorothiazide every other day. She had echocardiography performed she showing small pericardial effusion but no tamponade physiology. She has small pericardial effusion before in July 2022. She is denying any significant chest discomfort. She is saying her breathing has been better since she has been on prednisone. She is taking 5 mg daily. [facility] Medical History Dysphagia Multinodular thyroid Telangiectasia Surgical History S/P cardiac cath S/P tooth extraction Hx of colonoscopy H/O breast biopsy Family History Father Heart disease Sister Ovarian cancer Brother Heart attack Stroke Mother Thyroid disease Brother Asthma Social History Household Members: Spouse Housing: House Do you presently have visiting nurse or other home services: No Alcohol intake: never Patient Tobacco Use Status: Former Tobacco user Quit Date: Tobacco use type: Cigarette Years Smoked: 20 +/- e-Cigarette/Vaping Use: Never Used service: No Current occupational status: retired 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 Cognitive needs: No Hearing needs: No Vision needs: No Review of Systems Const Denies weakness ENT Denies dizziness Card Denies chest pain, Denies chest pain with activity, Denies syncope, Denies rapid heart rate, Denies pedal edema, Denies edema, Denies leg edema, Denies lightheadedness, Denies palpitations, Denies dyspnea, Denies dyspnea on exertion and Denies orthopnea Resp Denies cough, Denies dyspnea and Denies dyspnea on exertion GI Denies hematochezia and Denies change in stool character Musc Denies abnormal gait, Denies muscle cramps, Denies muscle weakness, Denies numbness, Denies radiating pain into limb and Denies tingling Neuro Denies abnormal gait, Denies dizziness, Denies syncope, Denies numbness, Denies tingling and Denies weakness Endo Denies palpitations Physical Exam Vital Signs: Last Vital Signs Pulse 94 06/01/23 09:29 BP 150/80 H 06/01/23 09:29 BMI result Body Mass Index 29.9 GENERAL APPEARANCE: in no acute distress, pleasant. NECK: no carotid bruit, no jugular venous distention. SKIN: no suspicious lesions, warm and dry. HEART: no murmurs, regular rate and rhythm. LUNGS: clear to auscultation bilaterally. ABDOMEN: soft, nontender. EXTREMITIES: no edema. PERIPHERAL PULSES: equal. NEUROLOGIC: No gross deficits, AAO X 3 Office Procedures EKG Details: Sinus rhythm 94 beats per minute, right bundle-branch block, left anterior fascicular block (bifascicular block), QTC 480 milliseconds. [id number], Complete Results Reviewed Results Reviewed: Echocardiography performed 05/25/2023 showing small pericardial effusion mostly loculated on the right atrium. No definitive echocardiographic features of tamponade. Assessment & Plan Assessment & Plan (1) Hypertension: Code(s): I10 - Essential (primary) hypertension (2) Pericardial effusion: Code(s): I31.39 - Other pericardial effusion (noninflammatory) Plan 72-year-old female with crest syndrome. She was seen for dyspnea on exertion. Stress test was abnormal and she underwent cardiac catheterization which did not show any significant coronary disease. LVEDP was normal. Her dyspnea is improved with prednisone use and she is currently taking 5 mg daily. Blood pressure is elevated. She is taking hydrochlorothiazide every other day. I have advised her to take it daily. Will bring her back in 2 weeks for blood pressure check. She has small pericardial effusion. This is stable compared to echocardiography 9 months ago. Currently no intervention is required. Follow-up with us in 6 months. Blood pressure check with nurse in 2 weeks. Thank you for allowing me to participate in the care of your patient. Please feel free to contact me if you have any questions. Medications: Changed From hydrochlorothiazide 25 mg PO Q OTHER DAY To hydrochlorothiazide 25 mg PO DAILY Coding Level of Care Code Est Pt Level 4 (72973) Diagnoses Hypertension I10 Pericardial effusion I31.39 CPT Codes EKG - CPT: 40598-[id number], Complete ([id number])
[2023-06-01 09:29] VITALS: BP 150/80; PULSE 94; BMI 29.9
== END 2023-06-01 09:56 | disposition home or self-care (01) ==
PROVIDERS: PCP Nurse Practitioner Family; Visit Provider Internal Medicine Cardiovascular Disease
DX: I10 Essential (primary) hypertension (principal); I31.39 Other pericardial effusion (noninflammatory)
CPT/HCPCS: 93010; 99214

== ENCOUNTER → 2023-06-01 09:16 | Outpatient (BNVA) | payer MEDICARE, OTHER, SELFPAY | PROVIDERS: PCP Nurse Practitioner Family; Visit Provider Internal Medicine Cardiovascular Disease | DX: I45.2 Bifascicular block (principal); I31.39 Other pericardial effusion (noninflammatory); I10 Essential (primary) hypertension | CPT/HCPCS: 93005; 99212 ==

== ENCOUNTER → 2023-06-15 09:01 | Outpatient (BNVA) | payer MEDICARE, OTHER, SELFPAY | PROVIDERS: PCP Nurse Practitioner Family; Visit Provider Internal Medicine Cardiovascular Disease ==

== ENCOUNTER 2023-10-22 10:04 | Outpatient (AMB) | payer MEDICARE, OTHER, SELFPAY ==
[2023-10-22 10:15] VITALS: BP 122/84; PULSE 100; RESP 16; O2SAT 96; BMI 31.5
--- NOTE | 2023-10-22 10:15 | MHC.PC.OV ---
Vital Signs 10/22/23 10:15 Height 5 ft 3 in Weight 178 lb 2 oz BMI 31.5 BP 122/84 Blood Pressure Location Lt brachial Position Sitting Respiration 16 Pulse 100 Pulse Source Pulse Oximeter Pulse Oximetry (%) 96 Oxygen Delivery Method Room Air Intake Visit Reasons: physical Intake Note: Pt is here for medication F/U until see by a new PCP here in the office. Global Consumer Sector Vice President Required: No Accompanied by: Self / Same As Patient Allergies codeine Allergy (Severe, Verified 10/22/23 10:18) felt like going to propranolol Allergy (Intermediate, Verified 10/22/23 10:18) dizziness Seasonal Allergies Allergy (Intermediate, Verified 10/22/23 10:18) Sneezing, vertigo Tobacco use date assessed: 10/22/23 Fall risk assessment: No Falls in past year Last assessed Fall Risk: 10/22/23 Dental Screening Dental Screen Date: 10/22/23 Did you have a dental visit in the last 12 months?: Yes Did you have a dental problem in the last 6 months where you did not have access to dental care?: No Was dental information given to patient?: Patient has dentist [facility] Medical History Dysphagia Multinodular thyroid Telangiectasia Surgical History S/P cardiac cath S/P tooth extraction Hx of colonoscopy H/O breast biopsy Family History Father Heart disease Sister Ovarian cancer Brother Heart attack Stroke Mother Thyroid disease Brother Asthma Social History Household Members: Spouse Housing: House Do you presently have visiting nurse or other home services: No Alcohol intake: never Patient Tobacco Use Status: Former Tobacco user Quit Date: Tobacco use type: Cigarette Years Smoked: 20 +/- e-Cigarette/Vaping Use: Never Used service: No Current occupational status: retired 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 1. Little interest or pleasure in doing things: not at all 2. Feeling down, depressed, or hopeless: not at all 3. Trouble falling or staying asleep, or sleeping too much: not at all 4. Feeling tired or having little energy: not at all 5. Poor appetite or overeating: not at all 6. Feeling bad about yourself - or that you are a failure or have let yourself or your family down: not at all 7. Trouble concentrating on things, such as reading the newspaper or watching television: not at all 8. Moving or speaking so slowly that other people could have noticed. Or the opposite - being so fidgety or restless that you have been moving around a lot more than usual: not at all 9. Thoughts that you would be better off or of hurting yourself in some way: not at all Total score: 0 Depression Screening Interpretation: Negative Depression Screening Done: Yes 25455 - PHQ-9 Billing: Yes Source: Developed by Drs. Carson Quiles, Malinda Morales, Tang Awad and colleagues, with an educational kevin from [employer]. Thrive Questionnaire Date Thrive assessed: 10/22/23 I am a: Patient What is your living situation today?: I have a steady place to live Within the past 12 months, did the food you bought not last and you didn't have the money to get more?: Never true Within the past 12 months, did you worry whether your food would run out before you got money to buy more?: Never true Do you have trouble paying for medicines?: No Do you have trouble getting transportation to medical appointments?: No Do you have trouble paying your heating and electricity bill?: No Do you have trouble taking care of your child, family member or friend?: No Do you have trouble with day-to-day activities such as bathing, preparing meals, shopping, managing finances, etc.?: No Are you currently unemployed and looking for a job?: No Are you interested in more education?: No Please select the resources that you would like help with: None Currently or been in a relationship where the following occur: no concerns reported THRIVE Score: 0 AUDIT C Alcohol Use Questionnaire (AUDIT-C) 1. How often do you have a drink containing alcohol?: Never 3. How often do you have six or more drinks on one occasion?: Never Total Score: 0 DEANN-7 AMB Questionnaire DEANN-7 Date DEANN - 7 assessed: 04/10/23 Source: Developed by Drs. Carson Quiles, Malinda Morales, Tang Awad and colleagues, with an educational kevin from [employer]. Physical exam (Primary Care) Tobacco/Smoking Status: Tobacco use Status Tobacco use date assessed 04/10/23 04/10/23 12:44 Patient Tobacco Use Status Former Tobacco user 04/10/23 12:44 Tobacco use type Cigarette 04/10/23 12:44 e-Cigarette/Vaping Use Never Used 04/10/23 12:44 Depression Screening Interpretation: Negative Currently or been in a relationship where the following occur: no concerns reported Coding
--- NOTE | 2023-10-22 10:25 | MHC.PC.OV ---
Vital Signs 10/22/23 10:15 Height 5 ft 3 in Weight 178 lb 2 oz BMI 31.5 BP 122/84 Blood Pressure Location Lt brachial Position Sitting Respiration 16 Pulse 100 Pulse Source Pulse Oximeter Pulse Oximetry (%) 96 Oxygen Delivery Method Room Air Intake Visit Reasons: Medication review Intake Note: Oracio's patient is here for a medication follow-up until they are seen by a new primary care physician in the office. Emergency Operator Required: No Accompanied by: Self / Same As Patient Allergies codeine Allergy (Severe, Verified 10/22/23 10:32) felt like going to propranolol Allergy (Intermediate, Verified 10/22/23 10:32) dizziness Seasonal Allergies Allergy (Intermediate, Verified 10/22/23 10:32) Sneezing, vertigo Medication List - Last Reconciled 10/22/23 by Soto Mari PA-C amlodipine 5 mg PO DAILY hydrochlorothiazide 25 mg PO DAILY levothyroxine 75 mcg PO DAILY prednisone 5 mg PO DAILY 30 days Tobacco use date assessed: 10/22/23 Fall risk assessment: No Falls in past year Last assessed Fall Risk: 10/22/23 Dental Screening Dental Screen Date: 10/22/23 Did you have a dental visit in the last 12 months?: Yes Did you have a dental problem in the last 6 months where you did not have access to dental care?: No Was dental information given to patient?: Patient has dentist HPI Medication review HPI Details Patient is a 73-year-old female here today for a medication review. This is the 1st time meeting this 73-year-old female with a past medical history significant for hypothyroidism, crest syndrome, hypertension. .. Hypothyroidism: Patient continues on 75 mcg of levothyroxine which has been effective on keeping her TSH stable. . Hypertension: Blood pressure acceptable today in office., continues on amlodipine and hydrochlorothiazide with good effect. [facility] Medical History Dysphagia Multinodular thyroid Telangiectasia Surgical History S/P cardiac cath S/P tooth extraction Hx of colonoscopy H/O breast biopsy Family History Father Heart disease Sister Ovarian cancer Brother Heart attack Stroke Mother Thyroid disease Brother Asthma Social History Household Members: Spouse Housing: House Do you presently have visiting nurse or other home services: No Alcohol intake: never Patient Tobacco Use Status: Former Tobacco user Quit Date: Tobacco use type: Cigarette Years Smoked: 20 +/- e-Cigarette/Vaping Use: Never Used service: No Current occupational status: retired 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 1. Little interest or pleasure in doing things: not at all 2. Feeling down, depressed, or hopeless: not at all 3. Trouble falling or staying asleep, or sleeping too much: not at all 4. Feeling tired or having little energy: not at all 5. Poor appetite or overeating: not at all 6. Feeling bad about yourself - or that you are a failure or have let yourself or your family down: not at all 7. Trouble concentrating on things, such as reading the newspaper or watching television: not at all 8. Moving or speaking so slowly that other people could have noticed. Or the opposite - being so fidgety or restless that you have been moving around a lot more than usual: not at all 9. Thoughts that you would be better off or of hurting yourself in some way: not at all Total score: 0 Depression Screening Interpretation: Negative Depression Screening Done: Yes 03797 - PHQ-9 Billing: Yes Source: Developed by Drs. Carson Quiles, Malinda Morales, Tang Awad and colleagues, with an educational kevin from [employer]. Thrive Questionnaire Date Thrive assessed: 10/22/23 I am a: Patient What is your living situation today?: I have a steady place to live Within the past 12 months, did the food you bought not last and you didn't have the money to get more?: Never true Within the past 12 months, did you worry whether your food would run out before you got money to buy more?: Never true Do you have trouble paying for medicines?: No Do you have trouble getting transportation to medical appointments?: No Do you have trouble paying your heating and electricity bill?: No Do you have trouble taking care of your child, family member or friend?: No Do you have trouble with day-to-day activities such as bathing, preparing meals, shopping, managing finances, etc.?: No Are you currently unemployed and looking for a job?: No Are you interested in more education?: No Please select the resources that you would like help with: None Currently or been in a relationship where the following occur: no concerns reported THRIVE Score: 0 AUDIT C Alcohol Use Questionnaire (AUDIT-C) 1. How often do you have a drink containing alcohol?: Never 3. How often do you have six or more drinks on one occasion?: Never Total Score: 0 DEANN-7 AMB Questionnaire DEANN-7 Date DEANN - 7 assessed: 10/22/23 Feeling nervous, anxious, or on edge: 0 = Not at all Not being able to stop or control worryin = Not at all Worrying too much about different things: 0 = Not at all Trouble relaxin = Not at all Being so restless that it is hard to sit still: 0 = Not at all Becoming easily annoyed or irritable: 0 = Not at all Feeling afraid as if something awful might happen: 0 = Not at all Total DEANN-7 score (0-4 normal; 5-9 mild; 10-14 moderate; 15-21 severe): 0 Source: Developed by Drs. Carosn Quiles, Malinda Morales, Tang Awad and colleagues, with an educational kevin from [employer]. DEANN-7 Assessment Billing DEANN-7 Assessment Tool: DEANN-7 Assessment 69577 Review of Systems Const Denies headache(s) Eyes Denies loss of vision ENT Denies vertigo, Denies dizziness, Denies headache(s) and Denies sore throat Card Denies chest pain, Denies leg edema and Denies lightheadedness Resp Denies cough, Denies hemoptysis and Denies wheezing GI Denies abdominal pain, Denies melena, Denies constipation, Denies diarrhea and Denies vomiting Denies urinary frequency, Denies dysuria and Denies urinary urgency Musc Denies arthralgias, Denies joint swelling, Denies numbness and Denies tingling Neuro Denies Abnormal speech present, Denies behavioral changes, Denies vertigo, Denies dizziness, Denies headache(s), Denies loss of vision, Denies memory loss, Denies numbness and Denies tingling Psych Denies anxiety, Denies behavioral changes, Denies depression, Denies memory loss and Denies panic attacks Kenneth/Lymph Denies easy bleeding and Denies easy bruising Aller/Immun Denies wheezing Physical exam (Primary Care) Vital Signs: Last Vital Signs Pulse 100 10/22/23 10:15 Resp 16 10/22/23 10:15 BP 122/84 10/22/23 10:15 Pulse Ox 96 10/22/23 10:15 Oxygen Delivery Method Room Air 10/22/23 10:15 BMI result Body Mass Index 31.5 BMI Assessment/Plan discussion: High Tobacco/Smoking Status: Tobacco use Status Tobacco use date assessed 10/22/23 10/22/23 10:27 Patient Tobacco Use Status Former Tobacco user 10/22/23 10:27 Tobacco use type Cigarette 10/22/23 10:27 e-Cigarette/Vaping Use Never Used 10/22/23 10:27 PHQ-9: PHQ-9 Score PHQ-9: Total score 0 10/22/23 10:37 Depression Screening Interpretation: Negative Thrive Assessment: Date of Thrive Assessment Date Thrive assessed 10/22/23 10/22/23 10:27 Currently or been in a relationship where the following occur: no concerns reported Const Other: Obese General: healthy appearing, no acute distress, alert and awake Nutritional Appearance: well nourished Orientation/consciousness: oriented to person, oriented to place and oriented to time HENMT Ears: TM's normal bilaterally General nose exam: Normal nasal mucous membranes and turbinates present Eyes Conjunctivae: conjunctivae normal Sclerae: sclerae normal Pupils: Equal, round and reactive pupils present Neck Neck: Yes no lymphadenopathy and Yes no JVD Thyroid: Thyroid normal Carotids: no bruits Resp Effort & Inspection: normal respiratory effort and not tachypneic Auscultation: no crackles, no rales, no rhonchi and no wheezes Cardio Rate: regular rate Rhythm: regular rhythm Heart sounds: no murmurs and normal S1 and S2 GI Palpation (GI): Soft to palpation, nontender, no hepatomegaly and no splenomegaly Auscultation: normal bowel sounds Skin General skin exam: no rashes or lesions noted and dry skin Neuro General: oriented to person, oriented to place and oriented to time Cranial nerves: Yes Equal, round and reactive pupils present Speech: No Abnormal speech present Gait exam (Neuro): Normal gait present Motor exam (neuro): no tremor noted Extrem Right upper extremity: full ROM Left upper extremity: full ROM Right lower extremity: full ROM; no edema Left lower extremity: full ROM; no edema Psych Mental Status: mental status grossly normal Speech and movement: Normal speech and movement present Affect: normal affect Attitude: cooperative Thought process: Normal thought process present Assessment and Plan Assessment & Plan (1) Hypertension: Code(s): I10 - Essential (primary) hypertension Qualifiers: Hypertension type: primary hypertension Qualified Code(s): I10 - Essential (primary) hypertension Plan: Patient's blood pressure acceptable today in office. Will continue her current dose of amlodipine and hydrochlorothiazide. Goal blood pressure to be below 140/90 (2) Hypothyroid: Code(s): E03.9 - Hypothyroidism, unspecified Qualifiers: Hypothyroidism type: unspecified Qualified Code(s): E03.9 - Hypothyroidism, unspecified Plan: Patient continues on levothyroxine 75 mcg. Most recent TSH stable. Will recheck TSH to assure normal. (3) CREST (calcinosis, Raynaud's phenomenon, esophageal dysfunction, sclerodactyly, telangiectasia): Code(s): M34.1 - CR(E)ST syndrome Plan: Patient continues to follow spring tester. Did have some trouble with her breathing and was placed on long-term prednisone 5 mg which has significantly helped her breathing. Orders: Orders Microalbumin, Random (w Creat) Today I10 - Essential (primary) hypertension TSH reflex Free T4 Today E03.9 - Hypothyroidism, unspecified Comprehensive [place]. Panel Fast Today I10 - Essential (primary) hypertension Medications: Refilled levothyroxine 75 mcg PO DAILY 90 caps 1RF E03.9 - Hypothyroidism, unspecified, E04.9 - Nontoxic goiter, unspecified Coding Level of Care Code Est Pt Level 4 (77788) Diagnoses Primary hypertension I10 Hypertension type: primary hypertension Hypothyroidism, unspecified type E03.9 Hypothyroidism type: unspecified CREST (calcinosis, Raynaud's phenomenon, esophageal dysfunction, sclerodactyly, telangiectasia) M34.1 Additional Codes DEANN-7 Assessment Billing - DEANN-7 Assessment Tool: DEANN-7 Assessment 15580 ([id number])
== END 2023-10-22 10:47 | disposition home or self-care (01) ==
PROVIDERS: PCP Nurse Practitioner Family; Visit Provider Physician Assistant
DX: I10 Essential (primary) hypertension (principal); E03.9 Hypothyroidism, unspecified; M34.1 CR(E)ST syndrome
CPT/HCPCS: 99214

== ENCOUNTER 2023-10-22 11:00 | Outpatient (REF) | payer MEDICARE, OTHER, SELFPAY ==
[2023-10-22 12:41] LABS: Creatinine Urine 146.56 mg/dL; Microalbum/Creatinine Ratio Ur 22.5 ug/mg cr (<30)
[2023-10-22 12:48] LABS: Alanine Aminotransferase 13 U/L (0-31); Albumin Level 3.7 g/dL (3.5-5.0); Alkaline Phosphatase 59 U/L (39-117); Anion Gap 13 (12-20); Aspartate Amino Transferase 17 U/L (5-31); Bilirubin Total 0.8 mg/dL (0.0-1.0); Blood Urea Nitrogen 23 mg/dL (9-16); Calcium 9.3 mg/dL (8.4-10.2); Carbon Dioxide 30 mmol/L (22-29); Chloride 105 mmol/L (96-108); Estimated Glomerular Filt Rate > 60; Glucose Fasting 104 mg/dL (60-99); Potassium 3.4 mmol/L (3.3-5.1); Sodium 145 mmol/L (135-145); Total Protein 6.5 g/dL (6.5-8.0)
[2023-10-22 13:02] LABS: TSH reflex Free T4 2.01 uIU/mL (0.32-4.0)
== END 2023-10-22 11:01 | disposition home or self-care (01) ==
LOC: HO.LAB 11:00
PROVIDERS: PCP Physician Assistant; Visit Provider Physician Assistant
DX: E03.9 Hypothyroidism, unspecified (principal); I10 Essential (primary) hypertension
CPT/HCPCS: 36415; 80053; 82043; 82570; 84443

== ENCOUNTER 2023-12-08 13:35 | Outpatient (AMB) | payer MEDICARE, OTHER, SELFPAY ==
--- NOTE | 2023-12-08 13:39 | MHC.OFFVIS ---
Intake Vital Signs 12/08/23 13:41 Height 5 ft 3 in Weight 178 lb BMI 31.5 BP 109/68 Blood Pressure Location Rt brachial Position Sitting Intake Visit Reasons: HUDSON Allergies codeine Allergy (Severe, Verified 12/08/23 13:44) felt like going to propranolol Allergy (Intermediate, Verified 12/08/23 13:44) dizziness Seasonal Allergies Allergy (Intermediate, Verified 12/08/23 13:44) Sneezing, vertigo HPI HUDSON HPI Details 73-year-old lady, former 40 pack smoker, quit 30 years prior, with underlying crest under Rheumatology care, previously followed for dyspnea on exertion, not seen since July of 2022. Patient continues on low-dose prednisone at 5 mg daily, previously with reasonable control of symptoms, now with worsening dyspnea intermittently and also with development of worsening lower extremity edema. [facility] Medical History Dysphagia Multinodular thyroid Telangiectasia Surgical History S/P cardiac cath S/P tooth extraction Hx of colonoscopy H/O breast biopsy Family History Father Heart disease Sister Ovarian cancer Brother Heart attack Stroke Mother Thyroid disease Brother Asthma Social History Household Members: Spouse Housing: House Do you presently have visiting nurse or other home services: No Alcohol intake: never Patient Tobacco Use Status: Former Tobacco user Quit Date: Tobacco use type: Cigarette Years Smoked: 20 +/- e-Cigarette/Vaping Use: Never Used service: No Current occupational status: retired 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 Cognitive needs: No Hearing needs: No Vision needs: No Review of Systems Const Denies daytime sleepiness, Denies excessive sweating, Denies fatigue, Denies fever(s), Denies lethargy, Denies malaise, Denies night sweats, Denies snoring and Denies weight loss Eyes Denies blurry vision and Denies itchy eyes ENT Denies nasal congestion, Denies post nasal drip, Denies sinus pain, Denies sinus pressure and Denies other ( Thrush) Card Denies chest pain, Reports pedal edema, Denies dyspnea, Reports dyspnea on exertion, Denies orthopnea and Denies paroxysmal nocturnal dyspnea Resp Denies cough, Denies hemoptysis, Denies excessive phlegm production, Denies dyspnea, Reports dyspnea on exertion, Denies snoring and Denies wheezing GI Denies abdominal pain and Denies heartburn Musc Denies myalgias, Denies arthralgias and Denies joint swelling Skin/Breast Denies rash Neuro Denies memory loss and Denies seizure-like activity Psych Denies abnormal sleep pattern, Denies anxiety and Denies memory loss Endo Denies excessive sweating, Denies fatigue and Denies heat intolerance Kenneth/Lymph Denies easy bruising Aller/Immun Denies itchy eyes, Denies seasonal rhinorrhea and Denies wheezing Physical Exam Vital Signs: Last Vital Signs BP 109/68 12/08/23 13:41 BMI result Body Mass Index 31.5 Const General: no acute distress and alert Nutritional Appearance: not obese Orientation/consciousness: Other orientation findings ( oriented) HEENT Head: Yes atraumatic Eyes General: appearance normal, both eyes and all related structures Sclerae: sclerae normal EOM: EOMs intact bilaterally Neck Neck: Yes supple Lymphatic: no lymphadenopathy noted Resp Effort & Inspection: normal respiratory effort and no use of accessory muscles Auscultation: clear to auscultation bilaterally Cardio Rate: regular rate Rhythm: regular rhythm Heart sounds: no gallops, no murmurs and no rubs Skin General skin exam: other ( warm) Extrem General: No clubbing, No cyanosis and Yes edema (1+ bilateral) Assessment & Plan Assessment & Plan (1) CREST (calcinosis, Raynaud's phenomenon, esophageal dysfunction, sclerodactyly, telangiectasia): Code(s): M34.1 - CR(E)ST syndrome Plan: Possible pulmonary of low movement from underlying CREST syndrome. Will start on prednisone taper and obtain full PFT. (2) Dyspnea on exertion: Code(s): R06.09 - Other forms of dyspnea Plan: Will obtain 2D echocardiogram to evaluate possible cardiac component. Orders: Orders PFT pulmonary function test Today M34.1 - CR(E)ST syndrome CT chest wo IV con Today M34.1 - CR(E)ST syndrome CA echo transthoracic complete Today M34.1 - CR(E)ST syndrome Medications: New prednisone Take 4 tabs daily for 5 days, then go down by 1 tab every 5 days 10 mg PO DIRECTED 50 tabs 0RF M34.1 - CR(E)ST syndrome Coding Level of Care Code Est Pt Level 4 (76972) Diagnoses CREST (calcinosis, Raynaud's phenomenon, esophageal dysfunction, sclerodactyly, telangiectasia) M34.1 Dyspnea on exertion R06.09
[2023-12-08 13:41] VITALS: BP 109/68; BMI 31.5
== END 2023-12-08 14:08 | disposition home or self-care (01) ==
PROVIDERS: PCP Physician Assistant; Visit Provider Internal Medicine Pulmonary Disease
DX: R06.09 Other forms of dyspnea (principal)
CPT/HCPCS: 94060; 94727; 94729; 99214

== ENCOUNTER → 2023-12-08 13:35 | Outpatient (BNVA) | payer MEDICARE, OTHER, SELFPAY | PROVIDERS: PCP Physician Assistant; Visit Provider Internal Medicine Pulmonary Disease ==

== ENCOUNTER 2023-12-08 14:05 | Outpatient (REF) | payer MEDICARE, OTHER, SELFPAY ==
[2023-12-08 14:31] VITALS: PULSE 104; O2SAT 94
--- NOTE | 2023-12-08 14:56 | PFT_ITS ---
Flows: FEV1: 110 % of predicted at 2.25 L FVC: 108 % of predicted at 2.87 L FEV1/FVC: 78 % Bronchodilator response: Absent Volumes: Total lung capacity: 80 % of predicted at 3.81 L Residual volume: 48 % of predicted at 0.93 L Slow vital capacity: 104 % of predicted at 2.88 L Expiratory reserve volume: 182 % of predicted at 1.21 L Diffusion capacity: Moderately decreased, adjusts to being mildly decreased after correction for alveolar ventilation. Impression: Borderline restrictive ventilatory defect with no bronchodilator response. Combination of borderline restrictive ventilatory defect with decreased diffusion capacity suggests underlying pulmonary parenchymal disease. Clinical correlation is advised. MTDD
== END 2023-12-08 14:06 | disposition home or self-care (01) ==
LOC: HO.RESP 14:05
PROVIDERS: PCP Physician Assistant; Visit Provider Internal Medicine Pulmonary Disease
DX: M34.1 CR(E)ST syndrome (principal); R06.09 Other forms of dyspnea; Z87.891 Personal history of nicotine dependence; Z79.52 Long term (current) use of systemic steroids
CPT/HCPCS: 94010; 94640; 94727; 94729; 99212

== ENCOUNTER 2024-01-06 10:14 | Outpatient (AMB) | payer MEDICARE, OTHER, SELFPAY ==
--- NOTE | 2024-01-06 11:46 | AM.OFFVISNUR ---
Intake Intake Visit Reasons: 6MW Allergies codeine Allergy (Severe, Verified 12/08/23 13:44) felt like going to propranolol Allergy (Intermediate, Verified 12/08/23 13:44) dizziness Seasonal Allergies Allergy (Intermediate, Verified 12/08/23 13:44) Sneezing, vertigo Office Procedures 6 Minute Walk Time:: 11:00 SPO2 % at rest: 89 (O2 Applied at 2lpm cont flow) Pulse at rest: 102 SPO2 % during excercise: 98 Pulse during excercise: 99 SPO2 % after excercise: 99 Pulse after excercise: 96 Distance in yards walked: 250 Merari Score: 5 Supplemental Oxygen: Patient current O2 orders from discharge @ [facility], 2lpm with rest, 6lpm with exertion. Patient has severe Raynaud's disease making getting a O2 sat extremely difficult. patient had a watch that was giving O2 sats and HR verified HR with a manual pulse. O2 sat stable on 2lpm 98% recommend 2lpm with exertion. Will reevaluate on 01/11 77012 - 6 Minute Walk Coding CPT Codes Coding ([id number])
[2024-01-06 11:55] VITALS: PULSE 102; O2SAT 89
== END 2024-01-06 11:36 | disposition home or self-care (01) ==
PROVIDERS: PCP Physician Assistant; Visit Provider Internal Medicine Pulmonary Disease
DX: R06.09 Other forms of dyspnea (principal)

== ENCOUNTER → 2024-01-06 10:14 | Outpatient (BNVA) | payer MEDICARE, OTHER, SELFPAY | PROVIDERS: PCP Physician Assistant; Visit Provider Internal Medicine Pulmonary Disease | DX: I73.00 Raynaud's syndrome without gangrene (principal); Z99.81 Dependence on supplemental oxygen | CPT/HCPCS: 94618 ==

== ENCOUNTER 2024-01-12 11:12 | Outpatient (AMB) | payer MEDICARE, OTHER, SELFPAY ==
--- NOTE | 2024-01-12 11:14 | A.OFFVIS_ITS ---
Vital Signs 01/12/24 11:29 01/12/24 11:29 Height 5 ft 3 in Weight 166 lb 4 oz BMI 29.4 BP 138/70 Blood Pressure Location Rt brachial Position Sitting Pulse 93 Pulse Source Pulse Oximeter Pulse Oximetry (%) 95 Oxygen Delivery Method Nasal Cannula Oxygen Flow Rate 2 Intake Visit Reasons: HUDSON/PFT, Echo and CT Chest Allergies codeine Allergy (Severe, Verified 12/08/23 13:44) felt like going to propranolol Allergy (Intermediate, Verified 12/08/23 13:44) dizziness Seasonal Allergies Allergy (Intermediate, Verified 12/08/23 13:44) Sneezing, vertigo HPI HPI HUDSON/PFT, Echo and CT Chest: Details: 73-year-old lady, former 40 pack smoker, quit 30 years prior, with underlying CREST under Rheumatology care, now followed for pulmonary component dyspnea on exertion. Patient's symptoms for previously controlled prednisone 5 mg daily. After the last office visit patient was hospitalized at [facility] for approximately 2 weeks with complete heart block and COVID, now she status post AV pacer, patient also was started on supplemental oxygen requiring 2 L with exertion. Patient does state that her symptoms are slowly improving. Her CT chest from [facility] demonstrated unilateral edema versus inflammatory process. COUNTS INCLUDE 234 BEDS AT THE [facility] Medical History Dysphagia Multinodular thyroid Telangiectasia Surgical History S/P cardiac cath S/P tooth extraction Hx of colonoscopy H/O breast biopsy Family History Father Heart disease Sister Ovarian cancer Brother Heart attack Stroke Mother Thyroid disease Brother Asthma Social History Household Members: Spouse Housing: House Do you presently have visiting nurse or other home services: No Alcohol intake: never Patient Tobacco Use Status: Former Tobacco user Quit Date: Tobacco use type: Cigarette Years Smoked: 20 +/- e-Cigarette/Vaping Use: Never Used service: No Current occupational status: retired 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 Cognitive needs: No Hearing needs: No Vision needs: No Review of Systems Card Denies chest pain, Denies pedal edema, Denies dyspnea, Reports dyspnea on exertion, Denies orthopnea and Denies paroxysmal nocturnal dyspnea Resp Denies cough, Denies hemoptysis, Denies excessive phlegm production, Denies dyspnea and Reports dyspnea on exertion Physical Exam Vital Signs: Last Vital Signs Pulse 93 01/12/24 11:29 BP 138/70 01/12/24 11:29 Pulse Ox 95 01/12/24 11:29 Oxygen Delivery Method Nasal Cannula 01/12/24 11:29 Oxygen Flow Rate 2 01/12/24 11:29 BMI result Body Mass Index 29.4 Const General: no acute distress and alert Nutritional Appearance: not obese Orientation/consciousness: Other orientation findings ( oriented) HEENT Head: Yes atraumatic Eyes General: appearance normal, both eyes and all related structures Sclerae: sclerae normal EOM: EOMs intact bilaterally Neck Neck: Yes supple Lymphatic: no lymphadenopathy noted Resp Effort & Inspection: normal respiratory effort and no use of accessory muscles Auscultation: clear to auscultation bilaterally Cardio Rate: regular rate Rhythm: regular rhythm Heart sounds: no gallops, no murmurs and no rubs Skin General skin exam: other ( warm) Extrem General: No clubbing, No cyanosis and No edema Office Procedures 6 Minute Walk Time:: 11:15 SPO2 % at rest: 95 Pulse at rest: 93 SPO2 % during excercise: 86 Pulse during excercise: 120 SPO2 % after excercise: 97 Pulse after excercise: 106 Distance in yards walked: 120 Merari Score: 2 Performance Observations:: Rajani walked on level ground without assistance, she walked on room air for 20 yards before her SPO2 decreased to 86%. O2 started at 2 lpm and her SPO2 recovered to 96%. She maintained her SPO2 96-97% for the remainder of the walk. 03813 - 6 Minute Walk Assessment & Plan Assessment & Plan (1) CREST (calcinosis, Raynaud's phenomenon, esophageal dysfunction, sclerodactyly, telangiectasia): Code(s): M34.1 - CR(E)ST syndrome Category: Medical (2) HUDSON (dyspnea on exertion): Code(s): R06.09 - Other forms of dyspnea Category: Medical (3) Supplemental oxygen dependent: Code(s): Z99.81 - Dependence on supplemental oxygen Category: Medical Plan Results of chest imaging from [facility] reviewed, appears to have had unilateral pulmonary edema, likely cardiac in nature on the background of complete heart block and COVID. Now with slowly improving dyspnea, though continues to require supplemental oxygen at 2 L continuous flow. Continues baseline regimen of prednisone 5 mg daily, almost done with prior taper. Will monitor clinically at this time. Orders: Orders AMB 6 minute walk Today R06.09 - Other forms of dyspnea Coding Level of Care Code Est Pt Level 4 (15401) Diagnoses CREST (calcinosis, Raynaud's phenomenon, esophageal dysfunction, sclerodactyly, telangiectasia) M34.1 HUDSON (dyspnea on exertion) R06.09 Supplemental oxygen dependent Z99.81 CPT Codes Coding ([id number])
[2024-01-12 11:29] VITALS: BP 138/70; PULSE 93; O2SAT 95; BMI 29.4
[2024-01-12 11:33] VITALS: PULSE 93; O2SAT 95
== END 2024-01-12 11:52 | disposition home or self-care (01) ==
PROVIDERS: PCP Physician Assistant; Visit Provider Internal Medicine Pulmonary Disease
DX: M34.1 CR(E)ST syndrome (principal); R06.09 Other forms of dyspnea; Z99.81 Dependence on supplemental oxygen
CPT/HCPCS: 94618; 99214

== ENCOUNTER → 2024-01-12 11:12 | Outpatient (BNVA) | payer MEDICARE, OTHER, SELFPAY | PROVIDERS: PCP Physician Assistant; Visit Provider Internal Medicine Pulmonary Disease | DX: M34.1 CR(E)ST syndrome (principal); R06.09 Other forms of dyspnea; Z79.52 Long term (current) use of systemic steroids; Z99.81 Dependence on supplemental oxygen | CPT/HCPCS: 94618; 99212 ==

== ENCOUNTER 2024-01-21 13:38 | Outpatient (AMB) | payer MEDICARE, OTHER, SELFPAY ==
[2024-01-21 13:44] VITALS: BP 118/60; PULSE 87; BMI 30.5
--- NOTE | 2024-01-21 13:44 | A.OFFVIS_ITS ---
Vital Signs 01/21/24 13:44 Height 5 ft 3 in Weight 171 lb 15.369 oz BMI 30.5 BP 118/60 Blood Pressure Location Lt brachial Position Sitting Pulse 87 Pulse Source Pulse Oximeter Intake Visit Reasons: [facility] f/up-km pt Allergies codeine Allergy (Severe, Verified 12/08/23 13:44) felt like going to propranolol Allergy (Intermediate, Verified 12/08/23 13:44) dizziness Seasonal Allergies Allergy (Intermediate, Verified 12/08/23 13:44) Sneezing, vertigo Medication List - Last Reconciled 01/21/24 by Johanny gNuyen NP hydrochlorothiazide 25 mg PO DAILY levothyroxine 75 mcg PO DAILY meclizine 25 mg PO BID PRN 30 days metoprolol succinate ER 25 mg PO DAILY prednisone 10 mg PO DIRECTED tizanidine 2 mg PO BEDTIME PRN 14 days HPI Comments Details: 73-year-old female presents today for a follow-up after being at [facility]. She had permanent pacemaker placement 12/16 due to complete heart block then had a lead revision on 12/17. He intial EKG showed sinus tachycardia with high degree AV vlock with ventricular escape rhythm with a 30s rate.?She had a follow-up at [facility] with Dr. Torrez. She had no issues with the pacemaker since discharge and is using the remote monitor. She is recovering from COVID and her breathing has been slowly improving and is seeing Dr Monson soon. She uses 2L of oxygen as needed on exertion. She denies chest pains. Blood pressures at home have been 110-120/60-70s. [facility] Medical History Multinodular thyroid Telangiectasia Dysphagia Surgical History (Updated 01/22/24 @ 10:20 by Johanny Nguyen NP) Status post cardiac pacemaker procedure S/P cardiac cath S/P tooth extraction Hx of colonoscopy H/O breast biopsy Family History Father Heart disease Sister Ovarian cancer Brother Heart attack Stroke Mother Thyroid disease Brother Asthma Social History Household Members: Spouse Housing: House Do you presently have visiting nurse or other home services: No Alcohol intake: never Patient Tobacco Use Status: Former Tobacco user Quit Date: Tobacco use type: Cigarette Years Smoked: 20 +/- e-Cigarette/Vaping Use: Never Used service: No Current occupational status: retired 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 Cognitive needs: No Hearing needs: No Vision needs: No Review of Systems Const Denies weakness ENT Denies dizziness Card Denies chest pain, Denies chest pain with activity, Denies syncope, Denies rapid heart rate, Denies pedal edema, Denies edema, Denies leg edema, Denies lightheadedness, Denies palpitations, Denies dyspnea, Denies dyspnea on exertion and Denies orthopnea Resp Denies cough, Denies dyspnea and Denies dyspnea on exertion GI Denies hematochezia and Denies change in stool character Musc Denies abnormal gait, Denies muscle cramps, Denies muscle weakness, Denies numbness, Denies radiating pain into limb and Denies tingling Neuro Denies abnormal gait, Denies dizziness, Denies syncope, Denies numbness, Denies tingling and Denies weakness Endo Denies palpitations Physical Exam Vital Signs: Last Vital Signs Pulse 87 01/21/24 13:44 BP 118/60 01/21/24 13:44 BMI result Body Mass Index 30.5 Const General: healthy appearing and no acute distress Orientation/consciousness: patient oriented x3 HEENT Head: Yes normal to inspection Eyes General: appearance normal, both eyes and all related structures Neck Neck: Yes normal visual inspection Chest Chest palpation & inspection: normal inspection of the chest Resp Effort & Inspection: normal respiratory effort Auscultation: clear to auscultation bilaterally Cardio Jugular venous distension: no JVD Palpation: normal PMI Rate: regular rate Rhythm: regular rhythm Heart sounds: S1 normal heart sound present, S2 normal heart sound present, no click, no gallops, no murmurs and no rubs GI Inspection: Yes normal to inspection Palpation (GI): Soft to palpation Skin General skin exam: no rashes or lesions noted Neuro General: patient oriented x3 Extrem General: Yes normal to inspection Psych Appearance: grossly normal Assessment & Plan Assessment & Plan (1) Status post cardiac pacemaker procedure: Code(s): Z95.0 - Presence of cardiac pacemaker Category: Surgical (2) Hypertension: Code(s): I10 - Essential (primary) hypertension Category: Medical Qualifiers: Hypertension type: primary hypertension Qualified Code(s): I10 - Essential (primary) hypertension Plan: Blood pressures are within range. Plan Will request records from implanting physician. Wound is well approximated without signs of infections. She is using remote device and understands how it is used. Denies any symptoms at this time other than breathing which is slowly improving. Coding Level of Care Code Est Pt Level 3 (28061) Diagnoses Status post cardiac pacemaker procedure Z95.0 Primary hypertension I10 Hypertension type: primary hypertension
== END 2024-01-21 14:34 | disposition home or self-care (01) ==
PROVIDERS: PCP Physician Assistant; Visit Provider Nurse Practitioner
DX: I10 Essential (primary) hypertension (principal); Z95.0 Presence of cardiac pacemaker
CPT/HCPCS: 99213

== ENCOUNTER 2024-01-21 13:38 | Outpatient (REF) | payer MEDICARE, OTHER, SELFPAY ==
[2024-01-21 15:57] LABS: Free T4 (Free Thyroxine) 1.27 ng/dL (0.71-1.85); Thyroid Stimulating Hormone 4.98 uIU/mL (0.32-4.0)
== END 2024-01-21 13:39 | disposition home or self-care (01) ==
LOC: HO.LAB 13:38
PROVIDERS: Internal Medicine Endocrinology, Diabetes & Metabolism; PCP Physician Assistant; Visit Provider Nurse Practitioner
DX: E04.2 Nontoxic multinodular goiter (principal); I10 Essential (primary) hypertension; Z95.0 Presence of cardiac pacemaker; Z99.81 Dependence on supplemental oxygen; Z86.16 Personal history of COVID-19
CPT/HCPCS: 36415; 84439; 84443; 99212

== ENCOUNTER 2024-01-27 08:52 | Outpatient (AMB) | payer MEDICARE, OTHER, SELFPAY ==
[2024-01-27 08:54] VITALS: BP 140/74; PULSE 133; BMI 31.2
--- NOTE | 2024-01-27 08:54 | MHC.OFFVIS ---
Vital Signs 01/27/24 08:54 Height 5 ft 3 in Weight 176 lb 2.389 oz BMI 31.2 BP 140/74 H Blood Pressure Location Lt brachial Position Sitting Pulse 133 H Pulse Source Pulse Oximeter Intake Visit Reasons: F/U NTMNG Intake Note: Patient present today for NTMNG follow up visit. Previously seen by Dr. Prakash on 01/22/23. Mechanic Recovery Required: No Accompanied by: Self / Same As Patient Allergies codeine Allergy (Severe, Verified 01/27/24 08:58) felt like going to propranolol Allergy (Intermediate, Verified 01/27/24 08:58) dizziness Seasonal Allergies Allergy (Intermediate, Verified 01/27/24 08:58) Sneezing, vertigo Medication List - Last Reconciled 01/27/24 by Carson Paul MD atorvastatin 40 mg PO DAILY hydrochlorothiazide 25 mg PO DAILY hydrocortisone 1% (Anti-Itch (hydrocortisone)) 1 appl topical BID PRN 2 weeks levothyroxine 75 mcg PO DAILY meclizine 25 mg PO BID PRN 30 days metoprolol succinate ER 25 mg PO DAILY prednisone 10 mg PO DIRECTED tizanidine 2 mg PO BEDTIME PRN 14 days HPI Comments Details: 73 YO F with PMHx Hypothyroidism and a multinodular thyroid who is seen in F/U for a NTMNG. The patient last saw Dr. Prakash on 01/22/2023 Was initially diagnosed with multinodular thyroid in 2021 with thyroid US revealing a RLP 3.5 cm thyroid nodule. She underwent FNA biopsy of this nodule 01/08/2023 with benign (bethesda category II) cytology. She does complain of compressive symptoms with dysphagia as well as vocal hoarseness. She had a CT of the neck which revealed no obvious mass effect from the thyroid on surrounding structors. TFTs have remained WNL. Denies any history of head or neck irradiation. Denies any family history of thyroid cancer. Thyroid US: 08/14/2022 SIZE: Measurements of the thyroid lobes and nodules are given in sagittal, anteroposterior and transverse dimensions respectively. Right Thyroid Lobe: 5.33 x 2.04 x 1.85 cm, volume 10.6 mL. Parenchyma: The gland echotexture is heterogeneous. Thyroid vascularity is increased. Left Thyroid Lobe: 5.18 x 1.59 x 0.74 cm, volume 3.19 mL. Parenchyma: The gland echotexture is homogeneous. Thyroid vascularity is normal. Isthmus: 0.23 cm in maximum AP dimension. Estimated total number of nodules greater than or equal to 1 cm: 1. Sales Account Specialist nodules are described as follows: 1. Location: Right inferior. ?? ? Size: 3.5 x 1.8 x 1.8 cm, volume 0.57 mL. ?? ? Nodule characteristics: ?? ? Composition: Solid (2). ?? ? Echogenicity: Hypoechoic (2). ?? ? Shape: Not taller than wide (0). ?? ? Margins: Smooth (0). ?? ? Echogenic Foci: None (0). ?? ? ACR TI-RADS total points: 4 ?? ? ACR TI-RADS category: 4 2. Location: Right superior. ?? ? Size: 0.80 x 0.71 x 0.90 cm, volume 0.27 mL. ?? ? Nodule characteristics: ?? ? Composition: Solid (2). ?? ? Echogenicity: Hypoechoic (2). ?? ? Shape: Not taller than wide (0). ?? ? Margins: Smooth (0). ?? ? Echogenic Foci: None (0). ?? ? ACR TI-RADS total points: 4 ?? ? ACR TI-RADS category: 4 NODES: No lymphadenopathy is seen in the tissue surrounding the thyroid gland. CT Neck: 09/29/2022 FINDINGS: There is redemonstration of nodules within the right thyroid gland, better defined on the recent ultrasound. There is no infiltration within the soft tissues adjacent to the thyroid. No pretracheal or prelaryngeal adenopathy is seen. No enlarged or cystic appearing cervical chain lymph nodes are noted. Nonenlarged lymph nodes are seen along the bilateral cervical chains. Innumerable small and punctate calcifications are seen within the parotid glands. The submandibular glands are atrophic. The pharyngeal and laryngeal contours appear normal acknowledging some limited assessment related to motion artifact. No enlarged upper mediastinal lymph nodes are seen. Atheromatous calcifications are noted within the aorta and major neck arteries. There is no consolidation within the upper lungs. No acute intracranial abnormality is seen. Mild to moderate degenerative changes are noted within the spine. No evidence of high-grade spinal canal stenosis. No destructive lesions. Labs: Laboratory Tests 09/22/22 09/22/22 10:53 10:53 TSH 2.33 Free T4 1.14 Takes L-T4 75 ug for many yrs. Had a heart block and Covid and has low energy . No obstructive sx. PFSH Medical History Multinodular thyroid Telangiectasia Dysphagia Surgical History Status post cardiac pacemaker procedure S/P cardiac cath S/P tooth extraction Hx of colonoscopy H/O breast biopsy Family History Father Heart disease Sister Ovarian cancer Brother Heart attack Stroke Mother Thyroid disease Brother Asthma Social History Household Members: Spouse Housing: House Do you presently have visiting nurse or other home services: No Alcohol intake: never Patient Tobacco Use Status: Former Tobacco user Quit Date: Tobacco use type: Cigarette Years Smoked: 20 +/- e-Cigarette/Vaping Use: Never Used service: No Current occupational status: retired 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 There were no palpable thyroid nodules Assessment & Plan Assessment & Plan (1) Enlarged thyroid: Code(s): E04.9 - Nontoxic goiter, unspecified Category: Medical Plan: This is a 73-year-old white female with a history of multinodular goiter with dominant right inferior thyroid nodule status post FNA with benign cytology. Plan is to repeat thyroid ultrasound (2) Hypothyroid: Code(s): E03.9 - Hypothyroidism, unspecified Category: Medical Qualifiers: Hypothyroidism type: unspecified Qualified Code(s): E03.9 - Hypothyroidism, unspecified Plan: Currently be replaced on 75 mcg levothyroxine. Appears clinically euthyroid but has elevated TSH. Plan is to increase levothyroxine 88 mcg recheck TSH and free T4 in 6 weeks time Orders: Orders Free T4 (Free Thyroxine) 6 Weeks E03.9 - Hypothyroidism, unspecified Thyroid Stimulating Hormone 6 Weeks E03.9 - Hypothyroidism, unspecified Medications: New levothyroxine 88 mcg PO DAILY 30 tabs 5RF Discontinued levothyroxine Discontinued Reason: Doctor's Order 75 mcg PO DAILY 90 caps 1RF E03.9 - Hypothyroidism, unspecified, E04.9 - Nontoxic goiter, unspecified Coding Level of Care Code Est Pt Level 3 (36549) Diagnoses Enlarged thyroid E04.9 Hypothyroidism, unspecified type E03.9 Hypothyroidism type: unspecified
== END 2024-01-27 09:17 | disposition home or self-care (01) ==
PROVIDERS: PCP Internal Medicine; Visit Provider Internal Medicine Endocrinology, Diabetes & Metabolism
DX: E04.9 Nontoxic goiter, unspecified (principal); E03.9 Hypothyroidism, unspecified
CPT/HCPCS: 99213

== ENCOUNTER → 2024-01-27 08:52 | Outpatient (BNVA) | payer MEDICARE, OTHER, SELFPAY | PROVIDERS: Visit Provider Internal Medicine Endocrinology, Diabetes & Metabolism | DX: E03.9 Hypothyroidism, unspecified (principal); E04.2 Nontoxic multinodular goiter | CPT/HCPCS: 99212 ==

== ENCOUNTER 2024-02-08 10:23 | Outpatient (REF) | payer MEDICARE, OTHER, SELFPAY ==
[2024-02-08 10:34] LABS: MANUAL DIFF FLAG NO
[2024-02-08 11:06] LABS: Basophils Absolute Auto 0.1 X10*3/uL (0.0-0.2); Basophils Percent Auto 0.6 % (0-2); Eosinophils Absolute Auto 0.2 X10*3/uL (0.0-0.4); Eosinophils Percent Auto 1.7 % (0-4); Hematocrit 35.1 % (37.0-47.0); Hemoglobin 11.4 g/dl (12.0-16.0); Lymphocytes Absolute Auto 2.2 X10*3/uL (1.2-4.9); Lymphocytes Percent Auto 22.4 % (20-40); Mean Corpuscular HGB Conc 32.5 g/dl (31.0-35.0); Mean Corpuscular Hemoglobin 31.8 pg (27.0-33.0); Mean Platelet Volume 8.9 fL (9.4-12.3); Monocytes Absolute Auto 1.2 X10*3/uL (0.1-1.2); Monocytes Percent Auto 11.7 % (2-11); Neutrophils Percent Auto 61.6 % (45-73); Platelet Count 297 X10*3/uL (160-400); Red Blood Count 3.58 X10*6/uL (4.20-5.50); Red Cell Distribution Width 15.9 % (11.0-16.0); White Blood Count 9.8 X10*3/uL (4.8-10.8)
== END 2024-02-08 10:24 | disposition home or self-care (01) ==
LOC: HO.LAB 10:23
PROVIDERS: PCP Physician Assistant; Visit Provider Internal Medicine Pulmonary Disease
DX: R06.09 Other forms of dyspnea (principal)
CPT/HCPCS: 36415; 85025

== ENCOUNTER 2024-02-12 13:48 | Inpatient (IN) | payer MEDICARE, OTHER, SELFPAY ==
[2024-02-12] VITALS (7 sets, daily range): BP systolic 126–163; BP diastolic 62–87; PULSE 83–113; RESP 14–20; TEMP 36.6–36.8; O2SAT 88–99; BMI 31.8
--- NOTE | ~2024-02-12 | CT_ITS ---
EXAMINATION: CT ANGIOGRAM OF THE CHEST WITH AND WITHOUT CONTRAST (CT PULMONARY ANGIOGRAM FOR PE) CLINICAL INFORMATION: Reason for Exam recent COVID, tachycardia increased hypoxia COMPARISON: CT chest 07/11/2022 TECHNIQUE: Prior to contrast administration, noncontrast localization images were obtained. Subsequently, multidetector volumetric imaging was performed from the thoracic inlet to below the diaphragms following the administration of 65 mL Omnipaque 350 intravenous contrast. No contrast reaction reported Sagittal, coronal, and MIP oblique sagittal reformatted images were obtained on the CT workstation, uploaded to PACS, and reviewed. This CT examination was performed using dose optimization techniques as appropriate, variously including the following: *Automated exposure control *Adjustment of mA and/or kV according to patient size (this includes techniques or standardized protocols for targeted exams where dose is matched to indication/reason for exam; i.e. extremities or head) *Use of iterative reconstruction technique Total exam dose-length product 296 mGy-cm FINDINGS: QUALITY OF STUDY/CONTRAST BOLUS: Satisfactory. PULMONARY ARTERIES: No pulmonary emboli. LUNGS: Diffuse patchy bilateral parenchymal groundglass opacities with a perihilar prominence which could be seen in the setting of atypical/viral infection, including COVID 19 pneumonia or pulmonary edema. Few new solid pulmonary nodules including a new 4 mm solid right upper lobe pulmonary nodule, 8:122 and a new 4 mm solid left upper lobe pulmonary nodule, 8:185.. Few calcified pulmonary granulomas. Mild centrilobular emphysema. Trace interlobular septal thickening. PLEURA: New trace bilateral pleural effusions. MEDIASTINUM: Heart is mildly enlarged. Moderate pericardial effusion slightly increased from prior measuring simple fluid attenuation. Calcifications of the thoracic aorta. Mildly enlarged subcarinal node measuring 1.2 cm short axis. Mildly enlarged right hilar node measuring 1.4 cm short axis. Mitral annular calcification. CORONARY ARTERY CALCIFICATION: Advanced coronary artery calcification is present. CHEST WALL/AXILLA: No axillary or internal mammary lymphadenopathy. 2 cm hypoattenuating right thyroid nodule, previously 2.[address] chest and previously characterized with dedicated thyroid ultrasound 08/14/2022. Right chest wall dual lead cardiac pacemaker leads terminating overlying the right atrium and ventricle. UPPER ABDOMEN: Small hiatal hernia. OSSEOUS STRUCTURES: Unremarkable. CT/CT angio chest PE protocol IMPRESSION: * No pulmonary embolism. * Diffuse patchy bilateral parenchymal groundglass opacities with a perihilar prominence and trace interlobular septal thickening which could be seen in the setting of atypical/viral infection, including COVID 19 pneumonia or pulmonary edema. * Heart is mildly enlarged with a moderate pericardial effusion slightly increased from prior. New trace bilateral pleural effusions. * Mildly enlarged subcarinal and right hilar nodes, possibly reactive given provided history of viral infection. * Advanced coronary artery calcification. Recommend correlation with cardiac risk factors. * Mild centrilobular emphysema. * Few new solid pulmonary nodules measuring up to 4 mm. According to the UPDATED 2017 Fleischner Society recommendations, the advised follow-up imaging for nodules <6mm in the upper lobes is not necessarily required in low-risk patients. In high-risk patients with a nodule in the upper lobe and/or demonstrating suspicious morphology, an optional CT follow-up at 12 months may be obtained. If stable at 12 months, no further follow-up is recommended. VTE: negative.
--- NOTE | ~2024-02-12 | XR_ITS ---
EXAMINATION: XR CHEST CLINICAL INFORMATION: Shortness of breath COMPARISON: Previous chest x-ray most recent May [address] July 2022 TECHNIQUE: 2 views of the chest were obtained. FINDINGS: The cardiac silhouette is normal in size. Hilar and mediastinal contours are unremarkable. Left subclavian dual-chamber pacemaker with leads projecting over the right atrium and right ventricle. The lungs are clear.. No pleural effusion or pneumothorax. Degenerative changes of the spine. XR/XR chest 2V IMPRESSION: No evidence for acute disease in the chest.
--- NOTE | 2024-02-12 13:50 | ED.GENADULT ---
HPI - General Adult General Chief complaint: Dyspnea Stated complaint: Difficulty breathing, chest fluttering Time Seen by Provider: 02/12/24 14:28 Source: patient and old records reviewed Mode of arrival: ambulatory Limitations: no limitations History of Present Illness ED Provider: DB QIU narrative: 73 yo female with PMH of hypothyroid disease, CREST syndrome, HLD who was admitted to [facility] 12/16 and [facility] 12/30 had prolonged illness with COVID still requiring 2L NC although usually just PRN with exertion, s/p PPM for high degree AV block on 12/16 with lead revision on 12/17. CTA negative for PE 12/23 she is not on blood thinners. She is currently on lasix and metoprolol she came in today as the past two days she is having more palpitations and HUDSON. She is very tired and anytime she exerts herself she has tachycardia and dyspnea. She is using O2 it seems like all the time and feels dizzy. MD complaint: palpitations, dyspnea, dizzy Onset (ago): day(s) (2) Location: chest Radiation: non-radiation Severity: moderate Relieving factors: rest Exacerbating factors: other (exertion) Associated symptoms: shortness of breath, weakness and other (dizziness) Treatments prior to arrival: none Related Data Home Medications ?Medication ?Instructions ?Recorded ?Confirmed metoprolol succinate 25 mg 25 mg PO DAILY 01/21/24 tablet,extended release 24 hr atorvastatin 40 mg tablet 40 mg PO DAILY 01/27/24 Previous Rx's ?Medication ?Instructions ?Recorded hydrochlorothiazide 25 mg tablet 25 mg PO DAILY #30 tabs 09/06/23 meclizine 25 mg tablet 25 mg PO BID PRN dizziness 30 days 11/02/23 #60 tabs prednisone 10 mg tablet 10 mg PO DIRECTED #50 tabs 12/08/23 tizanidine 2 mg tablet 2 mg PO BEDTIME PRN muscle 01/11/24 spasticity 14 days #14 tabs hydrocortisone 1 % topical cream 1 appl topical BID PRN skin 01/23/24 (Anti-Itch (hydrocortisone)) irritation 2 weeks #28.4 grams levothyroxine 88 mcg tablet 88 mcg PO DAILY #30 tabs 01/27/24 Allergies Allergy/AdvReac Type Severity Reaction Status Date / Time codeine Allergy Severe felt like Verified 02/12/24 13:53 going to propranolol Allergy Intermediate dizziness Verified 02/12/24 13:53 Seasonal Allergies Allergy Intermediate Sneezing, Verified 02/12/24 13:53 vertigo Review of Systems Review of Systems: Constitutional : No Fever, No Chills ENT/Mouth : No sore throat, No Rhinorrhea, No Swallowing Difficulty Eyes: No Eye Pain, No Swelling, No Redness Cardiovascular : No Chest Pain, positive SOB, No Orthopnea, no Edema, pos palpitations Respiratory : No Cough, No Sputum, No Wheezing, positive dyspnea Gastrointestinal : No Nausea, No Vomiting, No Diarrhea, No abdominal Pain, No Hematochezia, No Melena Genitourinary : No Dysuria, No Urinary Frequency, No Hematuria Musculoskeletal : No joint pain, No Myalgias Skin : No Skin Lesions, No rash Neuro : No Weakness, No Numbness, pos Dizziness, No Headache Psych : No Anxiety/Panic, No Depression All other systems reviewed and are negative [facility] Past Medical History Attestation statement: The following information was validated with the patient. Source: old records reviewed Medical History Hypothyroid Dyspnea on exertion Bifascicular block Pericardial effusion Enlarged thyroid CREST (calcinosis, Raynaud's phenomenon, esophageal dysfunction, sclerodactyly, telangiectasia) Hypertension Supplemental oxygen dependent Multinodular thyroid Telangiectasia Dysphagia Surgical History Status post cardiac pacemaker procedure S/P cardiac cath S/P tooth extraction Hx of colonoscopy H/O breast biopsy Family History Family History Father Heart disease Sister Ovarian cancer Brother Heart attack Stroke Mother Thyroid disease Brother Asthma Social History Social History Household Members: Spouse Housing: House Do you presently have visiting nurse or other home services: No Alcohol intake: never Patient Tobacco Use Status: Former Tobacco user Tobacco use type: Cigarette Years Smoked: 20 +/- Smoked in Last 30 Days: No e-Cigarette/Vaping Use: Never Used Use of substances other than those prescribed or required for medical reasons: No Advance Directives: Yes Advance Directives Information Provided: Yes Advance Directives on File: No service: No Current occupational status: retired 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 Oriented X3. No acute distress. Eyes: Pupils equal, round and reactive to light. ENT: Pharynx normal. Neck: Normal inspection. Neck supple. CVS: tachycardic heart rate and rhythm. Pulses normal. Respiratory: No respiratory distress. Breath sounds normal. Abdomen: Soft and nontender. Skin: Skin warm and dry. Normal skin color. Normal skin turgor. Extremities: No lower extremity edema. No calf ttp Neuro: Oriented X 3. No motor deficit. No sensory deficit. Course Course Course Narrative: This is an RME performed by Clover Cantu CNP: Additional HPI, ROS, PE not included below will be deferred to primary provider. Patient reports for/2023 she had a complete heart block with pacemaker and COVID-19 with subsequent 2 week admission, has been doing well since then. However over the past 2-3 days she has been experiencing worsening shortness of breath from her baseline despite home O2, palpitations. Contacted Cardiology, sent transmissions from [employer], and when she contacted cardiology they had no concerns. Having increased dyspnea on exertion, O2 saturation initially 88%, upon increases to 96% Plan: Labs, EKG, CXR, viral panel Reevaluation(s) Reevaluation #1: signed out to Dr. Perkins pending CTA and consult to cardiology Medications Administered Discontinued Medications Generic Name Dose Route Start Last Admin Trade Name Freq PRN Reason Stop Dose Admin Iohexol 100 ml 02/12/24 17:03 02/12/24 17:04 Iohexol 350 Mg/Ml 100 Ml Infus..Btl IV 02/12/24 17:04 65 ml ONCE ONE Administration Potassium Chloride 20 meq 02/12/24 14:49 02/12/24 15:06 Potassium Chloride Er 20 Meq Tab.Er.Prt PO 02/12/24 14:50 20 meq ONCE ONE Administration Medical Decision Making Medical Decision Making [facility] Narrative: 73 yo female with PMH of hypothyroid disease, CREST syndrome, HLD who was admitted to [facility] 12/16 and [facility] 12/30 had prolonged illness with COVID still requiring 2L NC s/p PPM for heart block in need of lead revision 12/17 24 hours after placement who comes in with c/o worsening dyspnea, palpitations and increased O2 use - she was found to be 88% on her 2L NC with ambulation. She notes up until two days ago things had been going better. At this time labs, EKG, troponin, CTA for PE. Will also run by cardiology her rhythm strips as she goes up to 140s at times while in paced rhythm. 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 02/12/24 14:15 02/12/24 14:15 Labs: Lab Results 02/12/24 02/12/24 Range/Units 14:15 15:08 WBC 11.0 H (4.8-10.8) X10*3/uL RBC 3.54 L (4.20-5.50) X10*6/uL Hgb 11.4 L (12.0-16.0) g/dl Hct 33.8 L (37.0-47.0) % MCV 95.5 (80.0-98.0) fL MCH 32.2 (27.0-33.0) pg MCHC 33.7 (31.0-35.0) g/dl RDW 15.9 (11.0-16.0) % Plt Count 254 (160-400) X10*3/uL MPV 8.7 L (9.4-12.3) fL Immature Gran % (Auto) 1.3 H (0.0-0.4) % Neut % (Auto) 83.7 H (45-73) % Lymph % (Auto) 6.6 L (20-40) % [place] % (Auto) 7.2 (2-11) % Eos % (Auto) 0.8 (0-4) % Baso % (Auto) 0.4 (0-2) % Lymph # (Auto) 0.7 L (1.2-4.9) X10*3/uL [place] # (Auto) 0.8 (0.1-1.2) X10*3/uL Eos # (Auto) 0.1 (0.0-0.4) X10*3/uL Baso # (Auto) 0.0 (0.0-0.2) X10*3/uL Abs Immat Gran (auto) 0.14 H (0.00-0.03) X10*3/uL Absolute Neuts (auto) 9.2 H (2.0-8.3) x10*3/uL Absolute Nucleated RBC 0.000 (0.0-0.012) X10*3/uL Nucleated RBC % (auto) 0.0 (0.0-0.2) /100WBC PT 11.1 (11.1-13.3) SEC INR 0.9 (0.9-1.1) Sodium 142 (135-145) mmol/L Potassium 3.2 L (3.3-5.1) mmol/L Chloride 104 (96-108) mmol/L Carbon Dioxide 29 (22-29) mmol/L Anion Gap 12 (12-20) BUN 22 H (9-16) mg/dL Creatinine 0.75 (0.5-1.4) mg/dL Estim Creat Clear Calc 67.5 Estimated GFR > 60 Random Glucose 132 H (60-115) mg/dL Calcium 9.3 (8.4-10.2) mg/dL Magnesium 2.0 (1.6-2.6) mg/dL Total Bilirubin 1.5 H (0.0-1.0) mg/dL AST 20 (5-31) U/L ALT 20 (0-31) U/L Alkaline Phosphatase 59 (39-117) U/L Troponin I High Sens 9.4 (<3.5-17.0) ng/L B-Natriuretic Peptide 161 H (<100) pg/mL Total Protein 6.3 L (6.5-8.0) g/dL Albumin 3.8 (3.5-5.0) g/dL TSH 0.94 (0.32-4.0) uIU/mL Urine Color Yellow Urine Appearance Clear Urine pH 6.5 (5.0-9.0) Ur Specific [place] 1.010 (1.005-1.025) Urine Protein Negative (Neg-Trace) mg/dL Urine Glucose (UA) Negative (Negative) mg/dL Urine Ketones Negative (Negative) mg/dL Urine Blood Negative (Negative) Urine Nitrite Negative (Negative) Ur Leukocyte Esterase Trace H (Negative) Urine RBC 0-2 (0-2) /HPF Urine WBC 0-5 (0-5) /HPF Ur Squamous Epith Cells 0-2 (0-2) /HPF Urine Bacteria None Seen (None Seen) Hyaline Casts 0-2 (0-2) /LPF Influenza Type A (PCR) NEGATIVE (Negative) Influenza Type B (PCR) NEGATIVE (Negative) RSV RNA Qual (PCR) NEGATIVE (Negative) SARS-CoV-2 RNA (RT-PCR) NEGATIVE (Negative) Independent Interpretation I performed an independent interpretation of an: EKG, Rhythm Strip and Plain X-Ray (no acute findings) Interpretation: Rate: 99 Rhythm: av paced Mallory: normal Normal P waves. Normal SHONDA. Normal QRS complex. ST T wave : no CHEN, nonspecific inf changes qTC: 472 prior studies: no acute ischemia The study has been interpreted contemporaneously by me. Radiology Impression Discussion of test interpretation with radiology: I have reviewed the radiologist's reading. Independent Historian Clinical information obtained from an independent historian. History obtained from or confirmed by: Spouse External Record Review External record reviewed: Outpatient record Discharge Plan Discharge Clinical Impression: Acute and chronic respiratory failure with hypoxia, Heart palpitations Patient Disposition: Admitted As Inpatient Print Language: Chinese
--- NOTE | 2024-02-12 13:54 | ECG_ITS ---
Test Reason : CHEST PAIN Blood Pressure : / mmHG Vent. Rate : 099 BPM Atrial Rate : 099 BPM P-R Int : 208 ms QRS Dur : 100 ms QT Int : 368 ms P-R-T Axes : 038 051 002 degrees QTc Int : 472 ms Atrial-sensed ventricular-paced rhythm Abnormal ECG When compared with ECG of 20-MAY-2022 12:38, Electronic ventricular pacemaker has replaced Sinus rhythm Referred By: Fabiola Cantu Electronically Signed By:LILLI MASON
[2024-02-12 14:21] LABS: MANUAL DIFF FLAG NO
[2024-02-12 14:24] LABS: Basophils Percent Auto 0.4 % (0-2); Eosinophils Absolute Auto 0.1 X10*3/uL (0.0-0.4); Eosinophils Percent Auto 0.8 % (0-4); Hematocrit 33.8 % (37.0-47.0); Hemoglobin 11.4 g/dl (12.0-16.0); Imm Gran Abs Auto 0.14 X10*3/uL (0.00-0.03); Imm Gran Pct Auto 1.3 % (0.0-0.4); Lymphocytes Absolute Auto 0.7 X10*3/uL (1.2-4.9); Lymphocytes Percent Auto 6.6 % (20-40); Mean Corpuscular HGB Conc 33.7 g/dl (31.0-35.0); Mean Corpuscular Hemoglobin 32.2 pg (27.0-33.0); Mean Corpuscular Volume 95.5 fL (80.0-98.0); Mean Platelet Volume 8.7 fL (9.4-12.3); Monocytes Absolute Auto 0.8 X10*3/uL (0.1-1.2); Monocytes Percent Auto 7.2 % (2-11); Neutrophils Absolute Auto 9.2 x10*3/uL (2.0-8.3); Neutrophils Percent Auto 83.7 % (45-73); Platelet Count 254 X10*3/uL (160-400); Red Blood Count 3.54 X10*6/uL (4.20-5.50); Red Cell Distribution Width 15.9 % (11.0-16.0)
[2024-02-12 14:27] LABS: INTERNATIONAL NORM RATIO 0.9 (0.9-1.1); Prothrombin Time 11.1 SEC (11.1-13.3)
[2024-02-12 14:42] LABS: B Type Natriuretic Peptide 161 pg/mL (<100)
[2024-02-12 14:45] LABS: Alanine Aminotransferase 20 U/L (0-31); Albumin Level 3.8 g/dL (3.5-5.0); Alkaline Phosphatase 59 U/L (39-117); Anion Gap 12 (12-20); Aspartate Amino Transferase 20 U/L (5-31); Blood Urea Nitrogen 22 mg/dL (9-16); Calcium 9.3 mg/dL (8.4-10.2); Carbon Dioxide 29 mmol/L (22-29); Chloride 104 mmol/L (96-108); Creatinine Clr Calc Pharmacy 67.5; Estimated Glomerular Filt Rate > 60; Glucose Random 132 mg/dL (60-115); Potassium 3.2 mmol/L (3.3-5.1); Sodium 142 mmol/L (135-145); Total Protein 6.3 g/dL (6.5-8.0); Troponin-I High Sensitivity 9.4 ng/L (<3.5-17.0)
[2024-02-12] MEDS: Potassium Chloride ER 20 MEQ TAB.ER.PRT PO (15:06)
[2024-02-12 15:14] LABS: Influenza A PCR NEGATIVE (Negative); Influenza B PCR NEGATIVE (Negative); Resp Syncy Virus RNA Qual PCR NEGATIVE (Negative); SARS COV2 PCR INHOUSE NEGATIVE (Negative)
[2024-02-12 15:34] LABS: Bilirubin Total 1.5 mg/dL (0.0-1.0)
[2024-02-12 15:47] LABS: Appearance Urine Clear; Color Urine Yellow; Glucose Urine UA Negative (Negative); Leukocyte Esterase Urine Trace (Negative); Nitrite Urine Negative (Negative); PH 6.5 (5.0-9.0); UMIC TRIGGER UACC YES; Urine Blood Negative (Negative); Urine Ketones Negative (Negative); Urine Protein Negative (Neg-Trace)
[2024-02-12 15:52] LABS: Bacteria Urine None Seen (None Seen); Hyaline Casts Urine 0-2 /LPF (0-2); RBC Urine 0-2 /HPF (0-2); Squamous Epithelial Cell Urine 0-2 /HPF (0-2); WBC Urine 0-5 /HPF (0-5)
[2024-02-12] MEDS: iohexoL 350 MG/ML 100 ML INFUS..BTL IV (17:04)
[2024-02-12 17:17] LABS: TSH reflex Free T4 0.94 uIU/mL (0.32-4.0)
[2024-02-12] MEDS: Magnesium Sulfate/H2O 2 GM/50 ML PIGGYBACK IV (20:16)
[2024-02-12] MEDS: methylPREDNISolone Sod Succ 125 MG/2 ML VIAL IVPUSH (20:16)
[2024-02-12 20:22] LABS: Venous Blood Gas Refer to POC result
[2024-02-12 20:23] LABS: VBG Base Excess 8.4 mmol/L; VBG HCO3 32 mmol/L (22-26); VBG pCO2 43 mmHg; VBG pH 7.48 (7.32-7.43); VBG pO2 40 mmHg
[2024-02-12] MEDS: 0.9 % Sodium Chloride 1,000 ML 999 ML IV (20:23)
[2024-02-12] MEDS: levalbuterol HCL 1.25 MG/3 ML VIAL.NEB 2.5 MG INHALE (20:24)
[2024-02-12 20:35] LABS: Lactic Acid 0.8 mmol/L (0.5-2.0)
[2024-02-12] MEDS: cefTRIAXone sodium 1 GM in 0.9 % Sodium Chloride 50 ML IV (20:38)
--- NOTE | 2024-02-12 20:50 | PC.NURSE ---
Med rec done, Pt able to provide med list and confirm home meds.
[2024-02-12 20:51] LABS: Troponin-I High Sensitivity 9.1 ng/L (<3.5-17.0)
--- NOTE | 2024-02-12 21:00 | PC.NURSE ---
This automotive service writer assumed care of this Pt at 1900. Pt A&Ox3, reports nasal congestion/post nasal drip for the past 2 weeks. For the past 2 days, Pt reports difficulty breathing and fluttering feeling to chest. Pt is on home O2 PRN, but had a hard breathing while grocery shopping. After Pt received breathing tx, Pt reports flutter feeling to chest and bilateral hand shakiness. HR noted to be 117.
--- NOTE | 2024-02-12 21:07 | PM.IMHP ---
History of Present Illness Date of Service: 02/12/24 Attending physician on admission: William Pham Chief Complaint: SOB, palpitations Pt is a 73-year-old female with a PMH significant for?crest syndrome, hypothyroidism, HLD, and [place] [facility] [place] for complete heart block requiring pacemaker placement on 12/16 with lead revision on 12/17 and prolonged bout of COVID currently still requiring 2L NC p.r.n. who presents to the ED for evaluation of increasing shortness of breath and palpitations x2 days. Patient states that her post-COVID SOB had been gradually getting better to the point where she was no longer needed supplemental O2 for the past few weeks. However, 2 days ago patient noted her O2 saturation was dropping into the mid 80s and she was feeling increasingly short of breath which required returning to O2 supplementation.. Also experienced intermittent palpitations that she describes as a ?fluttering and tremulous? feeling. This morning patient awoke especially out of breath that was not alleviated by constant O2 supplementation. Attempted to see pulmonology but was unable to. Sent in transmission from pacemaker cardiology who was not concerned with the readings. Patient also has been experiencing some lightheadedness and dizziness and chest soreness associated with deep breathing. Denies any cough. No orthopnea. Denies lower leg edema or noticeable recent weight gain. Denies fever, chills, nausea, vomiting, abdominal pain. Patient states she has had chronic resting tremors since childhood, though notes they have worsened slightly the past few months after instillation of her pacemaker. In the ED pt was tachycardic up to 113, hypertensive up to 163/87, and hypoxic as low as 88% on 2 L NC. Labs were significant for mild leukocytosis of 11.0, potassium 3.2, bilirubin 1.5, and BNP 161. Serial troponins negative 9.5 and 9.1. Lactic acid WNL at 0.8. UA negative for UTI. Tested negative for COVID, RSV, and flu. CXR showed no evidence for active. CTA of chest found no evidence of pulmonary embolism, but did find diffuse patchy bilateral parenchymal ground-glass opacities in perihilar prominence and trace interlobular septal thickening suggestive atypical/viral infection pulmonary edema?. Also found slightly increased moderate pericardial effusion, new trace bilateral pleural effusions, and advanced coronary artery calcification. EKG demonstrated atrial sensed ventricular paced rhythm of 99 without evidence of significant ST elevations or depressions. Pt was treated with potassium chloride, Mag sulfate, Solu-Medrol, Xopenex, and ceftriaxone. Pt will be admitted to the hospital for treatment and further evaluation of acute on chronic hypoxic respiratory failure most likely secondary to CHF, though also possibly secondary to interstitial lung disease. Review of Systems Review of Systems: Increasing shortness of breath Hypoxia Palpitations Fatigue Lightheadedness/dizziness Chest soreness associated with deep breathing Denies cough No fever, chills Denies chest pain/pressure [facility] Medical History (Updated 02/12/24 @ 23:51 by SHANTELL Hill) Complete heart block Hypothyroid Dyspnea on exertion Bifascicular block Pericardial effusion Enlarged thyroid CREST (calcinosis, Raynaud's phenomenon, esophageal dysfunction, sclerodactyly, telangiectasia) Hypertension Supplemental oxygen dependent Multinodular thyroid Telangiectasia Dysphagia Family History Father Heart disease Sister Ovarian cancer Brother Heart attack Stroke Mother Thyroid disease Brother Asthma Surgical History Status post cardiac pacemaker procedure S/P cardiac cath S/P tooth extraction Hx of colonoscopy H/O breast biopsy Social History Household Members: Spouse Housing: House Do you presently have visiting nurse or other home services: No Alcohol intake: never Patient Tobacco Use Status: Former Tobacco user Tobacco use type: Cigarette Years Smoked: 20 +/- Smoked in Last 30 Days: No e-Cigarette/Vaping Use: Never Used Use of substances other than those prescribed or required for medical reasons: No Advance Directives: Yes Advance Directives Information Provided: Yes Advance Directives on File: No service: No Current occupational status: retired 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 Cognitive needs: No Hearing needs: No Vision needs: No Meds Allergies Allergy/AdvReac Type Severity Reaction Status Date / Time codeine Allergy Severe felt like Verified 02/12/24 13:53 going to propranolol Allergy Intermediate dizziness Verified 02/12/24 13:53 Seasonal Allergies Allergy Intermediate Sneezing, Verified 02/12/24 13:53 vertigo Home Medications ?Medication ?Instructions ?Recorded ?Confirmed ?Last Taken ?Type metoprolol succinate 25 mg 25 mg PO DAILY 01/21/24 02/12/24 Unknown History tablet,extended release 24 hr atorvastatin 40 mg tablet 40 mg PO DAILY 01/27/24 02/12/24 Unknown History acetaminophen 325 mg tablet 650 mg PO QID PRN Pain 02/12/24 02/12/24 Unknown History (Tylenol) albuterol sulfate 90 mcg/actuation 2 puff inhalation Q6H PRN wheezing 02/12/24 02/12/24 Unknown History aerosol inhaler meclizine 25 mg tablet (Dramamine 25 mg PO BID PRN dizziness 02/12/24 02/12/24 Unknown History (meclizine)) naproxen sodium 220 mg capsule 220 mg PO Q12H PRN Muscle Pain 02/12/24 02/12/24 Unknown History Physical Exam Vital Signs and Narrative: Vital Signs: Last Vital Signs Temp 98.1 F 02/12/24 19:42 Pulse 83 02/12/24 20:27 Resp 18 02/12/24 20:27 BP 139/79 02/12/24 19:42 Pulse Ox 99 02/12/24 19:42 O2 Del Method Nasal Cannula 02/12/24 19:42 O2 Flow Rate 2 02/12/24 19:42 Oxygen Flow Rate 2 02/12/24 13:49 BMI result Body Mass Index 31.8 Constitutional: Alert, in no acute distress. Mental Status: Oriented to person, place and time. Eyes: Pupils are equal, round, and reactive to light. Ear, Nose, and Throat: Oropharynx clear, mucous membranes moist. Ears and nose without deformities. Trachea midline. Respiratory: Clear to auscultation bilaterally. No wheezing, rales, or rhonchi. Cardiovascular: S1, S2 regular rhythm, tachycardic. No murmurs, rubs, or gallops. Gastrointestinal: Abdomen soft, non-tender, non-distended. Normal bowel sounds. Neurologic: Cranial nerves II-XII are grossly intact bilaterally. No focal neurological deficits. Moves all extremities spontaneously. Skin: Warm, dry. Musculoskeletal: No cyanosis or clubbing. Extremities: Trace bilateral edema. Psychiatric: Normal mood and affect. Results Labs 02/12/24 14:15 02/12/24 14:15 Labs: Laboratory Results - last 24 hr 02/12/24 02/12/24 02/12/24 14:15 15:08 20:13 MCV 95.5 MCH 32.2 MCHC 33.7 RDW 15.9 Plt Count 254 MPV 8.7 L Immature Gran % (Auto) 1.3 H Neut % (Auto) 83.7 H Lymph % (Auto) 6.6 L [place] % (Auto) 7.2 Eos % (Auto) 0.8 Baso % (Auto) 0.4 Lymph # (Auto) 0.7 L [place] # (Auto) 0.8 Eos # (Auto) 0.1 Baso # (Auto) 0.0 Abs Immat Gran (auto) 0.14 H Absolute Neuts (auto) 9.2 H Absolute Nucleated RBC 0.000 Nucleated RBC % (auto) 0.0 PT 11.1 INR 0.9 VBG pH VBG pCO2 VBG pO2 VBG HCO3 VBG O2 Saturation VBG Base Excess Anion Gap 12 Estim Creat Clear Calc 67.5 Estimated GFR > 60 Random Glucose 132 H Lactic Acid 0.8 Calcium 9.3 Magnesium 2.0 Total Bilirubin 1.5 H AST 20 ALT 20 Alkaline Phosphatase 59 Troponin I High Sens 9.4 B-Natriuretic Peptide 161 H Total Protein 6.3 L Albumin 3.8 TSH 0.94 Urine Color Yellow Urine Appearance Clear Urine pH 6.5 Ur Specific [place] 1.010 Urine Protein Negative Urine Glucose (UA) Negative Urine Ketones Negative Urine Blood Negative Urine Nitrite Negative Ur Leukocyte Esterase Trace H Urine RBC 0-2 Urine WBC 0-5 Ur Squamous Epith Cells 0-2 Urine Bacteria None Seen Hyaline Casts 0-2 Influenza Type A (PCR) NEGATIVE Influenza Type B (PCR) NEGATIVE RSV RNA Qual (PCR) NEGATIVE SARS-CoV-2 RNA (RT-PCR) NEGATIVE 02/12/24 02/12/24 20:16 20:23 MCV MCH MCHC RDW Plt Count MPV Immature Gran % (Auto) Neut % (Auto) Lymph % (Auto) [place] % (Auto) Eos % (Auto) Baso % (Auto) Lymph # (Auto) [place] # (Auto) Eos # (Auto) Baso # (Auto) Abs Immat Gran (auto) Absolute Neuts (auto) Absolute Nucleated RBC Nucleated RBC % (auto) PT INR VBG pH 7.48 H VBG pCO2 43 VBG pO2 40 VBG HCO3 32 H VBG O2 Saturation 60.0 VBG Base Excess 8.4 Anion Gap Estim Creat Clear Calc Estimated GFR Random Glucose Lactic Acid Calcium Magnesium Total Bilirubin AST ALT Alkaline Phosphatase Troponin I High Sens 9.1 B-Natriuretic Peptide Total Protein Albumin TSH Urine Color Urine Appearance Urine pH Ur Specific [place] Urine Protein Urine Glucose (UA) Urine Ketones Urine Blood Urine Nitrite Ur Leukocyte Esterase Urine RBC Urine WBC Ur Squamous Epith Cells Urine Bacteria Hyaline Casts Influenza Type A (PCR) Influenza Type B (PCR) RSV RNA Qual (PCR) SARS-CoV-2 RNA (RT-PCR) Imaging Radiologist's Impressions: Impressions Chest X-Ray 02/12/24 14:26 IMPRESSION: No evidence for acute disease in the chest. Chest CTA 02/12/24 17:00 IMPRESSION: * No pulmonary embolism. * Diffuse patchy bilateral parenchymal groundglass opacities with a perihilar prominence and trace interlobular septal thickening which could be seen in the setting of atypical/viral infection, including COVID 19 pneumonia or pulmonary edema. * Heart is mildly enlarged with a moderate pericardial effusion slightly increased from prior. New trace bilateral pleural effusions. * Mildly enlarged subcarinal and right hilar nodes, possibly reactive given provided history of viral infection. * Advanced coronary artery calcification. Recommend correlation with cardiac risk factors. * Mild centrilobular emphysema. * Few new solid pulmonary nodules measuring up to 4 mm. According to the UPDATED 2017 Fleischner Society recommendations, the advised follow-up imaging for nodules <6mm in the upper lobes is not necessarily required in low-risk patients. In high-risk patients with a nodule in the upper lobe and/or demonstrating suspicious morphology, an optional CT follow-up at 12 months may be obtained. If stable at 12 months, no further follow-up is recommended. VTE: negative. Assessment and Plan (1) Acute and chronic respiratory failure with hypoxia: Status: Acute Plan Pt is a 73-year-old female with a PMH significant for?crest syndrome, hypothyroidism, HLD, and [place] [facility] [place] for complete heart block requiring pacemaker placement on 12/16 with lead revision on 12/17 and prolonged bout of COVID currently still requiring 2L NC p.r.n. who presents to the ED for evaluation of increasing shortness of breath and palpitations x2 days. Pt will be admitted to the hospital for treatment and further evaluation of acute on chronic hypoxic respiratory failure most likely secondary to CHF, though also possibly secondary to interstitial lung disease. Acute on chronic hypoxic respiratory failure Unclear etiology: Most likely cardiac, though also possibly pulmonary CTA showing ground glass opacities suggestive of atypical/viral infection versus pulmonary edema CTA showing slightly increased moderate pericardial effusion and new trace bilateral pleural effusions Patient does not meet sepsis criteria Will treat with Lasix 20 mg IV daily Will empirically cover with azithromycin, started 02/12/2024 Xopenex p.r.n., continue chronic prednisone Echocardiogram Will check viral panel Cardiology consult Pulmonology consult Titrate supplemental O2 >92, wean as tolerated Follow lytes, I/O Monitor on telemetry Hypokalemia, mild Potassium 3.2 at time of presentation Patient received potassium 20 mEq p.o. supplementation in the ED Follow BMP HTN Continue metoprolol Hypothyroidism Continue levothyroxine Full Code Attending:?Dr. Kidd DVT Prophylaxis: Lovenox Pt will require a hospitalization of at least two nights for treatment of?acute on chronic hypoxic respiratory failure in the setting likely cardiac etiology. Patient will require hospitalization for administration of IV diuretics, close monitoring of labs, cardiac function, and respiratory status, as well as specialist consultation with Cardiology and pulmonology. Quality Stroke Does the patient have a stroke diagnosis?: No VTE Prior VTE?: No VTE Risk Level:: Medical - moderate - high VTE Device Contraindication: Treatment Not Indicated VTE Drug Contraindication: N/A - Med Ordered
--- NOTE | 2024-02-12 21:26 | PHA.MEDREC ---
Pharmacy Consult ? Medication Reconciliation Pharmacy has completed the medication reconciliation. Verified meds list done by Nurse Yulia Obregon though claims.
[2024-02-12] MEDS: Furosemide 20 MG/2 ML VIAL IVPUSH (23:35)
[2024-02-12] MEDS: 0.9 % Sodium Chloride Flush 3 ML SYRINGE IVFLUSH (23:44)
[2024-02-12] MEDS: Enoxaparin Sodium 40 MG/0.4 ML SYRINGE SUBCUT (23:45)
--- NOTE | 2024-02-13 | PC.NURSE ---
Pt ambulated to BR independently with steady gait.
[2024-02-13] MEDS: Azithromycin 500 MG in 0.9 % Sodium Chloride 250 ML 125 MG IV ×2 (00:05→23:52)
--- NOTE | 2024-02-13 04:31 | PC.NURSE ---
Maddiode placed at bedside.
[2024-02-13 06:34] LABS: Hemoglobin 10.7 g/dl (12.0-16.0); Mean Corpuscular HGB Conc 33.4 g/dl (31.0-35.0); Mean Corpuscular Hemoglobin 31.4 pg (27.0-33.0); Mean Corpuscular Volume 93.8 fL (80.0-98.0); Mean Platelet Volume 8.9 fL (9.4-12.3); Platelet Count 271 X10*3/uL (160-400); Red Blood Count 3.41 X10*6/uL (4.20-5.50); Red Cell Distribution Width 15.6 % (11.0-16.0); White Blood Count 7.8 X10*3/uL (4.8-10.8)
[2024-02-13 06:37] VITALS: BP 143/84; PULSE 98; RESP 17; TEMP 36.7; O2SAT 98
[2024-02-13] MEDS: Levothyroxine Sodium 88 MCG TABLET PO (06:37)
[2024-02-13 06:52] LABS: Anion Gap 16 (12-20); Blood Urea Nitrogen 15 mg/dL (9-16); Calcium 8.2 mg/dL (8.4-10.2); Carbon Dioxide 23 mmol/L (22-29); Chloride 109 mmol/L (96-108); Creatinine Clr Calc Pharmacy 84.3; Estimated Glomerular Filt Rate > 60; Glucose Random 160 mg/dL (60-115); Sodium 145 mmol/L (135-145)
--- NOTE | 2024-02-13 07:00 | CA_ITS ---
Transthoracic Echocardiogram Patient (Last, First, Middle): Rajani Hart, Gender: Female Date of : 1950 Age: 73 Procedure Date: 02/13/2024 Procedure Type: Transthoracic Echocardiogram [place] [facility] [place] Height: 160.02 cm Weight: 81.19 kg BSA: 1.84 m2 Heart Rate: 85 bpm BP: 116 / 56 mmHg Drum Attendant: LUX Referring MD: Patrica STINSON Symptoms: Increased pericardial effusion, pleural effusions Study Quality: Fair ECG Rhythm: Sinus Conclusions: - The visually estimated ejection fraction is between 60-65%. There is no evidence of regional wall motion abnormalities. - Mean gradient across the mitral valve 11 mm Hg at 84/Min. MVA by VTi 1.54sqcm. Possible moderate to severe calcific mitral stenosis. - There is a small loculated pericardial effusion overlying the left ventricle and right atrium. Findings Left Ventricle Normal left ventricular cavity size. The left ventricular systolic function is normal. The visually estimated ejection fraction is between 60-65%. There is no evidence of regional wall motion abnormalities. Evidence suggests grade I (mild) diastolic dysfunction. There is mild septal asymmetric hypertrophy. LV peak GLS -16.4%. Right Ventricle Normal right ventricular cavity size and systolic function. There is a pacemaker wire seen in the right ventricle. Atria Both atria are normal in size. Aortic Valve There is a normal trileaflet aortic valve. There is mild calcification of the aortic valve. There is no aortic valve stenosis. There is no aortic valve regurgitation. Mitral Valve There is moderate mitral annular calcification. There is trace mitral valve regurgitation. There is no mitral valve stenosis. Mean gradient across the mitral valve 11 mm Hg at 84/Min. MVA by VTi 1.54sqcm. Possible moderate to severe calcific mitral stenosis. Pulmonic Valve The pulmonic valve is likely normal. Tricuspid Valve There is trace tricuspid valve regurgitation. There is no evidence of pulmonary hypertension. Great Vessels The asc aorta is normal in size. Venous The inferior vena cava is normal in size and collapses greater than 50% with inspiration. Pericardium/Pleural There is a small loculated pericardial effusion overlying the left ventricle and right atrium. Prior Study Comparison Changes noted compared to prior study dated: 05/25/2023. see comments on mitral valve. Measurements 2D Linear Measurements IVSd: 1.11 0.6-0.9/0.6-1.0 cm LVIDd: 4.91 3.9-5.3/4.2-5.9 cm LVIDd Index: 2.67 2.4-3.2/2.2-3.1 cm/m2 LVIDs: 3.39 2.0-3.6 cm LVPWd: 0.95 0.7-1.1 cm LA Diam: 3.50 2.7-3.8/3.0-4.0 cm LAIDs Index: 1.90 1.5-2.3 cm/m2 LV Mass: 229.35 67-162/88-224 g LV Mass Index: 124.65 43-95/49-115 g/m2 LVOT Diam: 2.00 3.0+(-)1.3 cm 2D Systolic Function EF 4C: 66.00 >55% EF 2C: 69.90 >55% EF BiP: 67.60 >55% Mitral Valve MV VTI: 0.41 MV Pk Irwin: 2.18 MV Mn Irwin: 1.51 MV Pk Grad: 19.00 MV Mn Grad: 10.00 MV Pk E: 1.43 MV PK A: 2.00 MV Decel Time: 216.00 E/A: 0.70 E'Lateral: 4.03 E'Medial: 4.03 E/E' Med: 35.50 E/E' Lat: 35.50 PHT: 63.00 MVA PHT: 3.49 MVA Continuity: 1.54 Decel Person: 6.63 Aortic Valve AoV Pk Irwin: 1.59 AoV Mn [place]win: 1.11 AoV VTI: 0.34 AoV Pk Grad: 10.00 Aov Mn Grad: 6.00 VAISLIY Cont.VTI: 1.84 LVOT LVOT Pk [place]: 0.94 LVOT Mn [place]: 0.68 LVOT VTI: 0.20 LVOT Pk Grad: 4.00 LVOT Mn Grad: 2.00 LVOT Diam: 2.00 LVOT Area: 3.14 Diastolic Function MV Pk E: 1.43 MV Pk A: 2.00 E/A: 0.70 E'Medial: 4.03 E/E' Med: 35.50 E' Laterial: 4.03 E/E' Lat: 35.50 Right Ventricle TAPSE (mm): 20.90 TVS' Irwin: 10.60 Tricuspid Valve TR Pk [place]win: 2.28 TR Pk Grad: 21.00 RA Press: 3.00 RVSP: 24.00 Great Vessels Aorta Sinus of Valsalva: 3.00 2.0-3.5 cm Ao Asc: 3.00 2.1-3.4 cm Pulmonary Valve PV Pk [place]: 0.78 Peak PV Grad: 2.00 Updated in Other Vendor System with Status of Final Chad Teran MD electronically signed on 02/13/2024 12:45:55 PM with status of Final
[2024-02-13 08:00] VITALS: BP 145/85; PULSE 99; RESP 20; TEMP 36.6; O2SAT 97
[2024-02-13] MEDS: Acetaminophen 325 MG TABLET 650 MG PO ×2 (08:33→21:03)
[2024-02-13] MEDS: Furosemide 20 MG/2 ML VIAL IVPUSH (08:33)
[2024-02-13] MEDS: Atorvastatin Calcium 40 MG TABLET PO (08:34)
[2024-02-13] MEDS: Metoprolol Succinate ER 25 MG TAB.ER.24H PO (08:34)
[2024-02-13] MEDS: NaPROXEN 250 MG TABLET PO ×2 (08:34→21:03)
[2024-02-13] MEDS: 0.9 % Sodium Chloride Flush 3 ML SYRINGE IVFLUSH ×3 (08:35→21:05)
[2024-02-13] MEDS: Potassium Chloride Packet 20 MEQ PACKET 40 MEQ PO (08:35)
--- NOTE | 2024-02-13 09:30 | PM.CNPUL ---
History of Present Illness History of Present Illness Consult date: 02/13/24 Chief complaint: Acute on chronic hypoxic respiratory failure Narrative: 73-year-old lady former 40 pack-year smoker, quit over 30 years prior with underlying CREST, on chronic low-dose prednisone, with recent [place] [facility] [place] and COVID, now status post AV pacer admitted to [facility] on 02/13/2024 with 3 day history of slowly worsening dyspnea. CTA chest with no pulmonary emboli, but demonstrating pulmonary edema. Review of Systems Constitutional: Constitutional: Denies daytime sleepiness, Denies excessive sweating, Denies fatigue, Denies fever(s), Denies lethargy, Denies malaise, Denies night sweats, Denies snoring and Denies weight loss Eyes: Eyes: Denies blurry vision and Denies itchy eyes ENT: Denies nasal congestion, Denies post nasal drip, Denies sinus pain, Denies sinus pressure and Denies other ( Thrush) Cardiovascular: Cardiovascular: Denies chest pain, Denies pedal edema, Reports leg edema, Denies dyspnea, Reports dyspnea on exertion, Denies orthopnea and Denies paroxysmal nocturnal dyspnea Respiratory: Respiratory: Denies cough, Denies hemoptysis, Denies excessive phlegm production, Denies dyspnea, Reports dyspnea on exertion, Denies snoring and Denies wheezing Gastrointestinal: Gastrointestinal: Denies abdominal pain and Denies heartburn Musculoskeletal: Musculoskeletal: Denies myalgias, Denies arthralgias and Denies joint swelling Integumentary/Breasts: Skin/Breast: Denies rash Neurologic: Denies memory loss and Denies seizure-like activity Psychiatric: Psychiatric: Denies abnormal sleep pattern, Denies anxiety and Denies memory loss Endocrine: Endocrine: Denies excessive sweating, Denies fatigue and Denies heat intolerance Hematologic/Lymphatic: Hematologic/Lymphatic: Denies easy bruising Allergic/Immunologic: Allergic/Immunologic: Denies itchy eyes, Denies seasonal rhinorrhea and Denies wheezing PMFSH Past Medical History Medical History (Updated 02/13/24 @ 09:32 by Pancho Monson MD) CREST (calcinosis, Raynaud's phenomenon, esophageal dysfunction, sclerodactyly, telangiectasia) Complete heart block Hypothyroid Dyspnea on exertion Bifascicular block Pericardial effusion Enlarged thyroid Hypertension Supplemental oxygen dependent Multinodular thyroid Telangiectasia Dysphagia Family History Family History Father Heart disease Sister Ovarian cancer Brother Heart attack Stroke Mother Thyroid disease Brother Asthma Surgical History Surgical History Status post cardiac pacemaker procedure S/P cardiac cath S/P tooth extraction Hx of colonoscopy H/O breast biopsy Social History Social History Household Members: Spouse Housing: House Do you presently have visiting nurse or other home services: Yes (VNA ,PT) Alcohol intake: never Patient Tobacco Use Status: Former Tobacco user Tobacco use type: Cigarette Years Smoked: 20 +/- Smoked in Last 30 Days: No e-Cigarette/Vaping Use: Never Used Use of substances other than those prescribed or required for medical reasons: No Have you been hit, kicked, punched, or otherwise hurt by someone within the past year? 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 Cognitive needs: No Hearing needs: No Vision needs: No Meds Allergies Allergy/AdvReac Type Severity Reaction Status Date / Time codeine Allergy Severe felt like Verified 02/12/24 13:53 going to propranolol Allergy Intermediate dizziness Verified 02/12/24 13:53 Seasonal Allergies Allergy Intermediate Sneezing, Verified 02/12/24 13:53 vertigo Active Medications: Current Medications Acetaminophen (Acetaminophen 325 Mg Tablet) 650 mg PO Q6H PRN PRN Reason: Pain, Mild (Pain Scale 1-3) Last Admin: 02/13/24 08:33 Dose: 650 mg Albuterol Sulfate (Albuterol Sulfate 90 Mcg 8 Gm Inhaler) 2 puff INHALE Q6H PRN PRN Reason: wheezing Atorvastatin Calcium (Atorvastatin Calcium 40 Mg Tablet) 40 mg PO DAILY [facility] Last Admin: 02/13/24 08:34 Dose: 40 mg Benzonatate (Benzonatate 100 Mg Capsule) 100 mg PO TID PRN PRN Reason: Cough Docusate Sodium (Docusate Sodium 100 Mg Capsule) 100 mg PO DAILY PRN PRN Reason: Constipation Enoxaparin Sodium (Enoxaparin Sodium 40 Mg/0.4 Ml Syringe) 40 mg SUBCUT Q24H [facility] Last Admin: 02/12/24 23:45 Dose: 40 mg Furosemide (Furosemide 20 Mg/2 Ml Vial) 20 mg IVPUSH DAILY [facility]; Protocol Last Admin: 02/13/24 08:33 Dose: 20 mg Azithromycin 500 mg/ Sodium (Chloride) 250 mls @ 125 mls/hr IV Q24H [facility] Last Infusion: 02/13/24 02:33 Dose: Infused Levalbuterol HCl (Levalbuterol Hcl 1.25 Mg/3 Ml Vial.Neb) 1.25 mg INHALE Q4H PRN PRN Reason: Shortness of Breath/Wheezing Levothyroxine Sodium (Levothyroxine Sodium 88 Mcg Tablet) 88 mcg PO 0630 [facility] Last Admin: 02/13/24 06:37 Dose: 88 mcg Meclizine HCl (Meclizine Hcl 25 Mg Tablet) 25 mg PO BID PRN PRN Reason: dizziness Melatonin (Melatonin 3 Mg Tablet) 6 mg PO BEDTIME PRN PRN Reason: Insomnia Metoprolol Succinate (Metoprolol Succinate Er 25 Mg Tab.Er.24h) 25 mg PO DAILY [facility]; Protocol Last Admin: 02/13/24 08:34 Dose: 25 mg Naproxen (Naproxen 250 Mg Tablet) 250 mg PO Q12H PRN PRN Reason: Muscle Pain Last Admin: 02/13/24 08:34 Dose: 250 mg Ondansetron HCl (Ondansetron Hcl 4 Mg/2 Ml Vial) 4 mg IVPUSH Q8H PRN PRN Reason: Nausea and Vomiting Prednisone (Prednisone 10 Mg Tablet) 10 mg PO .[TAPER DIRECTED] [facility] Sodium Chloride (0.9 % Sodium Chloride Flush 3 Ml Syringe) 3 ml IVFLUSH QSHIFT [facility] Last Admin: 02/13/24 08:35 Dose: 3 ml Tizanidine HCl (Tizanidine Hcl 4 Mg Tablet) 2 mg PO BEDTIME PRN PRN Reason: muscle spasticity Home Medications ?Medication ?Instructions ?Recorded ?Confirmed ?Last Taken ?Type metoprolol succinate 25 mg 25 mg PO DAILY 01/21/24 02/12/24 Unknown History tablet,extended release 24 hr atorvastatin 40 mg tablet 40 mg PO DAILY 01/27/24 02/12/24 Unknown History acetaminophen 325 mg tablet 650 mg PO QID PRN Pain 02/12/24 02/12/24 Unknown History (Tylenol) albuterol sulfate 90 mcg/actuation 2 puff inhalation Q6H PRN wheezing 02/12/24 02/12/24 Unknown History aerosol inhaler meclizine 25 mg tablet (Dramamine 25 mg PO BID PRN dizziness 02/12/24 02/12/24 Unknown History (meclizine)) naproxen sodium 220 mg capsule 220 mg PO Q12H PRN Muscle Pain 02/12/24 02/12/24 Unknown History Physical Exam Vital Signs: Vital Signs: Last Vital Signs Temp 97.8 F 02/13/24 08:00 Pulse 99 02/13/24 08:00 Resp 20 02/13/24 08:00 BP 145/85 H 02/13/24 08:00 Pulse Ox 97 02/13/24 08:00 O2 Del Method Nasal Cannula 02/13/24 08:00 O2 Flow Rate 2 02/13/24 08:00 Oxygen Flow Rate 2 02/12/24 13:49 BMI result Body Mass Index 31.8 Const: General: no acute distress and alert Nutritional Appearance: not obese Orientation/consciousness: Other orientation findings ( oriented) HEENT: Head: Yes atraumatic Eyes: General: appearance normal, both eyes and all related structures Sclerae: sclerae normal EOM: EOMs intact bilaterally Neck: Neck: Yes supple Lymphatic: no lymphadenopathy noted Resp: Effort & Inspection: normal respiratory effort and no use of accessory muscles Auscultation: clear to auscultation bilaterally Cardio: Rate: regular rate Rhythm: regular rhythm Heart sounds: no gallops, no murmurs and no rubs Skin: General skin exam: other ( warm) Extrem: General: No clubbing, No cyanosis and No edema Results Laboratory Findings 02/13/24 06:19 02/13/24 06:19 ABG, PT/INR, D-dimer: PT/INR, D-dimer PT 11.1 SEC (11.1-13.3) 02/12/24 14:15 INR 0.9 (0.9-1.1) 02/12/24 14:15 Abnormal lab findings: Abnormal Labs 02/12/24 02/12/24 02/12/24 14:15 15:08 20:16 WBC 11.0 H RBC 3.54 L Hgb 11.4 L Hct 33.8 L MPV 8.7 L Immature Gran % (Auto) 1.3 H Neut % (Auto) 83.7 H Lymph % (Auto) 6.6 L Lymph # (Auto) 0.7 L Abs Immat Gran (auto) 0.14 H Absolute Neuts (auto) 9.2 H VBG pH 7.48 H VBG HCO3 32 H Potassium 3.2 L Chloride BUN 22 H Random Glucose 132 H Calcium Total Bilirubin 1.5 H B-Natriuretic Peptide 161 H Total Protein 6.3 L Ur Leukocyte Esterase Trace H 02/13/24 06:19 WBC RBC 3.41 L Hgb 10.7 L Hct 32.0 L MPV 8.9 L Immature Gran % (Auto) Neut % (Auto) Lymph % (Auto) Lymph # (Auto) Abs Immat Gran (auto) Absolute Neuts (auto) VBG pH VBG HCO3 Potassium 3.0 L Chloride 109 H BUN Random Glucose 160 H Calcium 8.2 L D Total Bilirubin B-Natriuretic Peptide Total Protein Ur Leukocyte Esterase Assessment and Plan (1) Acute hypoxic respiratory failure: Status: Acute (2) Pulmonary edema: Status: Acute (3) CREST (calcinosis, Raynaud's phenomenon, esophageal dysfunction, sclerodactyly, telangiectasia): Status: Acute Plan Impression: 73-year-old lady with underlying CREST admitted with hypoxic respiratory failure for 3 days, appears to be secondary to development of pulmonary edema. Recommendations: Decrease systemic glucocorticoids to equivalent of prednisone 10 mg daily. Diuresis with goal of 1-2 L negative per day. Procedures Date of Service Date of Service: 02/13/24
--- NOTE | 2024-02-13 10:21 | PM.CNCAR ---
History of Present Illness History of Present Illness Date of Service: 02/13/24 Chief complaint: Acute on chronic hypoxic respiratory failure Narrative: This is a cardiology consultation regarding shortness of breath. Documentation was reviewed. Also discussed at length with patient. Patient carries a diagnosis of CREST syndrome. She states that for the last 3 years or so she has been feeling gradually short of breath with activity. More recently, she got diagnosed with complete heart block and underwent permanent pacemaker in November of this year. Around the same time, she was also diagnosed with COVID. After that, it seems that she has been more short of breath than her baseline. Also in the last few days, her oxygen saturation has been dropping further sometimes into the 80s and as low as into the 70s. She is noticing some fluttering sensation in the chest. Because of this, she has been admitted. She is also on supplemental oxygen at baseline as necessary. In the CT scan, there is question of pericardial effusion as well. Review of Systems Review of Systems: Yes all other systems are reviewed and are negative Constitutional: Constitutional: Reports as per HPI and Reports no additional constitutional complaints Eyes: Eyes: Reports as per HPI and Denies no additional eye complaints ENT: Denies system reviewed and no additional complaints, except as documented and Reports as per HPI Cardiovascular: Cardiovascular: Reports as per HPI, Reports no additional cardiovascular complaints, Denies acrocyanosis, Denies cool extremities, Denies chest pain, Denies leg edema, Denies lightheadedness, Denies palpitations and Reports dyspnea Respiratory: Respiratory: Reports as per HPI, Denies no additional respiratory complaints and Reports dyspnea Gastrointestinal: Gastrointestinal: Reports as per HPI and Denies no additional gastrointestinal complaints Genitourinary: Genitourinary: Reports as per HPI Musculoskeletal: Musculoskeletal: Reports no additional musculoskeletal complaints and Reports as per HPI Integumentary/Breasts: Skin/Breast: Reports system reviewed and no additional complaints, except as docu Neurologic: Reports system reviewed and no additional complaints, except as documented and Reports as per HPI Psychiatric: Psychiatric: Reports no additional psychiatric complaints and Reports as per HPI Endocrine: Endocrine: Reports no additional endocrine complaints, Reports as per HPI and Denies palpitations Hematologic/Lymphatic: Hematologic/Lymphatic: Reports no additional hematologic/lymphatic complaints and Reports as per HPI Allergic/Immunologic: Allergic/Immunologic: Reports no additional allergic/immunologic complaints and Reports as per HPI [facility] Past Medical History Medical History (Updated 02/13/24 @ 10:26 by Chad Teran MD) Pericardial effusion CREST (calcinosis, Raynaud's phenomenon, esophageal dysfunction, sclerodactyly, telangiectasia) Complete heart block Hypothyroid Dyspnea on exertion Bifascicular block Enlarged thyroid Hypertension Supplemental oxygen dependent Multinodular thyroid Telangiectasia Dysphagia Family History Family History Father Heart disease Sister Ovarian cancer Brother Heart attack Stroke Mother Thyroid disease Brother Asthma Surgical History Surgical History Status post cardiac pacemaker procedure S/P cardiac cath S/P tooth extraction Hx of colonoscopy H/O breast biopsy Social History Social History Household Members: Spouse Housing: House Do you presently have visiting nurse or other home services: Yes (VNA ,PT) Alcohol intake: never Patient Tobacco Use Status: Former Tobacco user Tobacco use type: Cigarette Years Smoked: 20 +/- Smoked in Last 30 Days: No e-Cigarette/Vaping Use: Never Used Use of substances other than those prescribed or required for medical reasons: No Have you been hit, kicked, punched, or otherwise hurt by someone within the past year? 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 Cognitive needs: No Hearing needs: No Vision needs: No Meds Allergies Allergy/AdvReac Type Severity Reaction Status Date / Time codeine Allergy Severe felt like Verified 02/12/24 13:53 going to propranolol Allergy Intermediate dizziness Verified 02/12/24 13:53 Seasonal Allergies Allergy Intermediate Sneezing, Verified 02/12/24 13:53 vertigo Active Medications: Current Medications Acetaminophen (Acetaminophen 325 Mg Tablet) 650 mg PO Q6H PRN PRN Reason: Pain, Mild (Pain Scale 1-3) Last Admin: 02/13/24 08:33 Dose: 650 mg Albuterol Sulfate (Albuterol Sulfate 90 Mcg 8 Gm Inhaler) 2 puff INHALE Q6H PRN PRN Reason: wheezing Atorvastatin Calcium (Atorvastatin Calcium 40 Mg Tablet) 40 mg PO DAILY [facility] Last Admin: 02/13/24 08:34 Dose: 40 mg Benzonatate (Benzonatate 100 Mg Capsule) 100 mg PO TID PRN PRN Reason: Cough Docusate Sodium (Docusate Sodium 100 Mg Capsule) 100 mg PO DAILY PRN PRN Reason: Constipation Enoxaparin Sodium (Enoxaparin Sodium 40 Mg/0.4 Ml Syringe) 40 mg SUBCUT Q24H [facility] Last Admin: 02/12/24 23:45 Dose: 40 mg Furosemide (Furosemide 20 Mg/2 Ml Vial) 20 mg IVPUSH DAILY [facility]; Protocol Last Admin: 02/13/24 08:33 Dose: 20 mg Azithromycin 500 mg/ Sodium (Chloride) 250 mls @ 125 mls/hr IV Q24H [facility] Last Infusion: 02/13/24 02:33 Dose: Infused Levalbuterol HCl (Levalbuterol Hcl 1.25 Mg/3 Ml Vial.Neb) 1.25 mg INHALE Q4H PRN PRN Reason: Shortness of Breath/Wheezing Levothyroxine Sodium (Levothyroxine Sodium 88 Mcg Tablet) 88 mcg PO 0630 [facility] Last Admin: 02/13/24 06:37 Dose: 88 mcg Meclizine HCl (Meclizine Hcl 25 Mg Tablet) 25 mg PO BID PRN PRN Reason: dizziness Melatonin (Melatonin 3 Mg Tablet) 6 mg PO BEDTIME PRN PRN Reason: Insomnia Metoprolol Succinate (Metoprolol Succinate Er 25 Mg Tab.Er.24h) 25 mg PO DAILY [facility]; Protocol Last Admin: 02/13/24 08:34 Dose: 25 mg Naproxen (Naproxen 250 Mg Tablet) 250 mg PO Q12H PRN PRN Reason: Muscle Pain Last Admin: 02/13/24 08:34 Dose: 250 mg Ondansetron HCl (Ondansetron Hcl 4 Mg/2 Ml Vial) 4 mg IVPUSH Q8H PRN PRN Reason: Nausea and Vomiting Prednisone (Prednisone 10 Mg Tablet) 10 mg PO .[TAPER DIRECTED] [facility] Sodium Chloride (0.9 % Sodium Chloride Flush 3 Ml Syringe) 3 ml IVFLUSH QSHIFT [facility] Last Admin: 02/13/24 08:35 Dose: 3 ml Tizanidine HCl (Tizanidine Hcl 4 Mg Tablet) 2 mg PO BEDTIME PRN PRN Reason: muscle spasticity Home Medications ?Medication ?Instructions ?Recorded ?Confirmed ?Last Taken ?Type metoprolol succinate 25 mg 25 mg PO DAILY 01/21/24 02/12/24 Unknown History tablet,extended release 24 hr atorvastatin 40 mg tablet 40 mg PO DAILY 01/27/24 02/12/24 Unknown History acetaminophen 325 mg tablet 650 mg PO QID PRN Pain 02/12/24 02/12/24 Unknown History (Tylenol) albuterol sulfate 90 mcg/actuation 2 puff inhalation Q6H PRN wheezing 02/12/24 02/12/24 Unknown History aerosol inhaler meclizine 25 mg tablet (Dramamine 25 mg PO BID PRN dizziness 02/12/24 02/12/24 Unknown History (meclizine)) naproxen sodium 220 mg capsule 220 mg PO Q12H PRN Muscle Pain 02/12/24 02/12/24 Unknown History Physical Exam Vital Signs: Vital Signs: Last Vital Signs Temp 97.8 F 02/13/24 08:00 Pulse 99 02/13/24 08:00 Resp 20 02/13/24 08:00 BP 145/85 H 02/13/24 08:00 Pulse Ox 97 02/13/24 08:00 O2 Del Method Nasal Cannula 02/13/24 08:00 O2 Flow Rate 2 02/13/24 08:00 Oxygen Flow Rate 2 02/12/24 13:49 BMI result Body Mass Index 31.8 Const: General: comfortable and no acute distress Orientation/consciousness: patient oriented x3 HEENT: Other: Unremarkable Head: Yes normal to inspection Neck: Neck: Yes normal visual inspection Chest: Chest palpation & inspection: normal inspection of the chest Resp: Auscultation: clear to auscultation bilaterally Cardio: Palpation: normal PMI Heart sounds: S1 normal heart sound present, S2 normal heart sound present, no gallops, no murmurs and no rubs GI: Palpation (GI): Soft to palpation Back/Spine/Pelvis: Other: unremarkable Skin: General skin exam: no rashes or lesions noted Neuro: General: patient oriented x3 Extrem: General: Yes normal to inspection Psych: Mental Status: mental status grossly normal Objective Labs and Meds 02/13/24 06:19 02/13/24 06:19 Lab results: Laboratory Results - last 24 hr 02/12/24 02/12/24 02/12/24 14:15 15:08 20:13 WBC 11.0 H RBC 3.54 L Hgb 11.4 L Hct 33.8 L MCV 95.5 MCH 32.2 MCHC 33.7 RDW 15.9 Plt Count 254 MPV 8.7 L Immature Gran % (Auto) 1.3 H Neut % (Auto) 83.7 H Lymph % (Auto) 6.6 L [place] % (Auto) 7.2 Eos % (Auto) 0.8 Baso % (Auto) 0.4 Lymph # (Auto) 0.7 L [place] # (Auto) 0.8 Eos # (Auto) 0.1 Baso # (Auto) 0.0 Abs Immat Gran (auto) 0.14 H Absolute Neuts (auto) 9.2 H Absolute Nucleated RBC 0.000 Nucleated RBC % (auto) 0.0 PT 11.1 INR 0.9 VBG pH VBG pCO2 VBG pO2 VBG HCO3 VBG O2 Saturation VBG Base Excess Sodium 142 Potassium 3.2 L Chloride 104 Carbon Dioxide 29 Anion Gap 12 BUN 22 H Creatinine 0.75 Estim Creat Clear Calc 67.5 Estimated GFR > 60 Random Glucose 132 H Lactic Acid 0.8 Calcium 9.3 Magnesium 2.0 Total Bilirubin 1.5 H AST 20 ALT 20 Alkaline Phosphatase 59 Troponin I High Sens 9.4 B-Natriuretic Peptide 161 H Total Protein 6.3 L Albumin 3.8 TSH 0.94 Urine Color Yellow Urine Appearance Clear Urine pH 6.5 Ur Specific [place] 1.010 Urine Protein Negative Urine Glucose (UA) Negative Urine Ketones Negative Urine Blood Negative Urine Nitrite Negative Ur Leukocyte Esterase Trace H Urine RBC 0-2 Urine WBC 0-5 Ur Squamous Epith Cells 0-2 Urine Bacteria None Seen Hyaline Casts 0-2 Influenza Type A (PCR) NEGATIVE Influenza Type B (PCR) NEGATIVE RSV RNA Qual (PCR) NEGATIVE SARS-CoV-2 RNA (RT-PCR) NEGATIVE 06/02/12/24 02/13/24 20:16 20:23 06:19 WBC 7.8 RBC 3.41 L Hgb 10.7 L Hct 32.0 L MCV 93.8 MCH 31.4 MCHC 33.4 RDW 15.6 Plt Count 271 MPV 8.9 L Immature Gran % (Auto) Neut % (Auto) Lymph % (Auto) [place] % (Auto) Eos % (Auto) Baso % (Auto) Lymph # (Auto) [place] # (Auto) Eos # (Auto) Baso # (Auto) Abs Immat Gran (auto) Absolute Neuts (auto) Absolute Nucleated RBC 0.000 Nucleated RBC % (auto) 0.0 PT INR VBG pH 7.48 H VBG pCO2 43 VBG pO2 40 VBG HCO3 32 H VBG O2 Saturation 60.0 VBG Base Excess 8.4 Sodium 145 Potassium 3.0 L Chloride 109 H Carbon Dioxide 23 Anion Gap 16 BUN 15 Creatinine 0.60 Estim Creat Clear Calc 84.3 Estimated GFR > 60 Random Glucose 160 H Lactic Acid Calcium 8.2 L D Magnesium Total Bilirubin AST ALT Alkaline Phosphatase Troponin I High Sens 9.1 B-Natriuretic Peptide Total Protein Albumin TSH Urine Color Urine Appearance Urine pH Ur Specific [place] Urine Protein Urine Glucose (UA) Urine Ketones Urine Blood Urine Nitrite Ur Leukocyte Esterase Urine RBC Urine WBC Ur Squamous Epith Cells Urine Bacteria Hyaline Casts Influenza Type A (PCR) Influenza Type B (PCR) RSV RNA Qual (PCR) SARS-CoV-2 RNA (RT-PCR) ECG Interpretation: EKG with atrial sensed, ventricular paced rhythm at 99/Min. Imaging Radiologist's impression: Impressions Chest X-Ray 02/12/24 14:26 IMPRESSION: No evidence for acute disease in the chest. Chest CTA 02/12/24 17:00 IMPRESSION: * No pulmonary embolism. * Diffuse patchy bilateral parenchymal groundglass opacities with a perihilar prominence and trace interlobular septal thickening which could be seen in the setting of atypical/viral infection, including COVID 19 pneumonia or pulmonary edema. * Heart is mildly enlarged with a moderate pericardial effusion slightly increased from prior. New trace bilateral pleural effusions. * Mildly enlarged subcarinal and right hilar nodes, possibly reactive given provided history of viral infection. * Advanced coronary artery calcification. Recommend correlation with cardiac risk factors. * Mild centrilobular emphysema. * Few new solid pulmonary nodules measuring up to 4 mm. According to the UPDATED 2017 Fleischner Society recommendations, the advised follow-up imaging for nodules <6mm in the upper lobes is not necessarily required in low-risk patients. In high-risk patients with a nodule in the upper lobe and/or demonstrating suspicious morphology, an optional CT follow-up at 12 months may be obtained. If stable at 12 months, no further follow-up is recommended. VTE: negative. Assessment and Plan (1) Acute hypoxic respiratory failure: Status: Acute (2) [place] (dyspnea on exertion): Status: Acute (3) CREST (calcinosis, Raynaud's phenomenon, esophageal dysfunction, sclerodactyly, telangiectasia): Status: Acute (4) Status post cardiac pacemaker procedure: Status: Acute (5) Pericardial effusion: Status: Acute Plan Unremarkable high sensitivity troponins. Slightly increased cardiac BNP. CT chest report reviewed. There is question of diffuse patchy bilateral parenchymal opacities and there is question of atypical/viral infection, COVID-19 pneumonia versus pulmonary edema. Moderate pericardial effusion. Reactive lymph nodes. Coronary calcification. Mild emphysema. Clinically, she does not really appear to be in congestive heart failure. If she where truly having this much of pulmonary edema, I would think she would be much more sick. Will get an echocardiogram anyway to assess LVEF, filling pressures, diastolic function and pericardial effusion and any significant valve disease. Also obtain pulmonary consultation. Will follow up with you. Procedures Date of Service Date of Service: 02/13/24
[2024-02-13] MEDS: predniSONE 10 MG TABLET PO (10:29)
[2024-02-13 10:46] VITALS: BP 116/56; PULSE 83; RESP 18; TEMP 36; O2SAT 100
--- NOTE | 2024-02-13 11:27 | P.PNIM_ITS ---
Subjective Subjective Date of Service: 02/13/24 Interval History: Seen and examined this morning follow up for dyspnea Feeling better this morning, no cough, no fever Review of Systems Review of Systems: Yes all other systems are reviewed and are negative Constitutional Constitutional: Denies chills and Denies fever(s) Cardiovascular Cardiovascular: Denies chest pain and Reports dyspnea Respiratory Respiratory: Denies cough and Reports dyspnea Gastrointestinal Gastrointestinal: Denies abdominal pain, Denies nausea and Denies vomiting Physical Exam 2 Vital Signs: Vital Signs: Last Vital Signs Temp 96.8 F 02/13/24 10:46 Pulse 83 02/13/24 10:46 Resp 18 02/13/24 10:46 BP 116/56 L 02/13/24 10:46 Pulse Ox 100 02/13/24 10:46 O2 Del Method Room Air 02/13/24 10:46 O2 Flow Rate 2 02/13/24 08:00 Oxygen Flow Rate 2 02/12/24 13:49 BMI result Body Mass Index 31.8 Const: General: cooperative, comfortable, no acute distress, alert and awake Nutritional Appearance: overweight Orientation/consciousness: patient oriented x3 Resp: Other: No wheezes, rhonchi, rales Effort & Inspection: normal respiratory effort, able to speak in complete sentences, no respiratory distress and no use of accessory muscles A uscultation: clear to auscultation bilaterally Cardio: Rate: regular rate Heart sounds: S1 normal heart sound present and S2 normal heart sound present GI: Inspection: No distended Palpation (GI): Soft to palpation and nontender Neuro: General: patient oriented x3, moves all extremities and CN's II-XI intact bilaterally Extrem: General: Yes no pedal edema Objective Data Active Medications Acetaminophen (Acetaminophen 325 Mg Tablet) 650 mg PO Q6H PRN PRN Reason: Pain, Mild (Pain Scale 1-3) Last Admin: 02/13/24 08:33 Dose: 650 mg Documented By: MAXIMILIAN Albuterol Sulfate (Albuterol Sulfate 90 Mcg 8 Gm Inhaler) 2 puff INHALE Q6H PRN PRN Reason: wheezing Atorvastatin Calcium (Atorvastatin Calcium 40 Mg Tablet) 40 mg PO DAILY AYAKA Last Admin: 02/13/24 08:34 Dose: 40 mg Documented By: MAXIMILIAN Benzonatate (Benzonatate 100 Mg Capsule) 100 mg PO TID PRN PRN Reason: Cough Docusate Sodium (Docusate Sodium 100 Mg Capsule) 100 mg PO DAILY PRN PRN Reason: Constipation Enoxaparin Sodium (Enoxaparin Sodium 40 Mg/0.4 Ml Syringe) 40 mg SUBCUT Q24H [facility] Last Admin: 02/12/24 23:45 Dose: 40 mg Documented By: CARL Furosemide (Furosemide 20 Mg/2 Ml Vial) 20 mg IVPUSH DAILY [facility]; Protocol Last Admin: 02/13/24 08:33 Dose: 20 mg Documented By: MAXIMILIAN Azithromycin 500 mg/ Sodium (Chloride) 250 mls @ 125 mls/hr IV Q24H [facility] Last Infusion: 02/13/24 02:33 Dose: Infused Documented By: CARL Levalbuterol HCl (Levalbuterol Hcl 1.25 Mg/3 Ml Vial.Neb) 1.25 mg INHALE Q4H PRN PRN Reason: Shortness of Breath/Wheezing Levothyroxine Sodium (Levothyroxine Sodium 88 Mcg Tablet) 88 mcg PO 0630 [facility] Last Admin: 02/13/24 06:37 Dose: 88 mcg Documented By: CARL Meclizine HCl (Meclizine Hcl 25 Mg Tablet) 25 mg PO BID PRN PRN Reason: dizziness Melatonin (Melatonin 3 Mg Tablet) 6 mg PO BEDTIME PRN PRN Reason: Insomnia Metoprolol Succinate (Metoprolol Succinate Er 25 Mg Tab.Er.24h) 25 mg PO DAILY [facility]; Protocol Last Admin: 02/13/24 08:34 Dose: 25 mg Documented By: MAXIMILIAN Naproxen (Naproxen 250 Mg Tablet) 250 mg PO Q12H PRN PRN Reason: Muscle Pain Last Admin: 02/13/24 08:34 Dose: 250 mg Documented By: MAXIMILIAN Ondansetron HCl (Ondansetron Hcl 4 Mg/2 Ml Vial) 4 mg IVPUSH Q8H PRN PRN Reason: Nausea and Vomiting Prednisone (Prednisone 10 Mg Tablet) 10 mg PO DAILY [facility] Sodium Chloride (0.9 % Sodium Chloride Flush 3 Ml Syringe) 3 ml IVFLUSH QSHIFT [facility] Last Admin: 02/13/24 08:35 Dose: 3 ml Documented By: MAXIMILIAN Tizanidine HCl (Tizanidine Hcl 4 Mg Tablet) 2 mg PO BEDTIME PRN PRN Reason: muscle spasticity Labs 02/13/24 06:19 02/13/24 06:19 Labs: Laboratory Results - last 24 hr 02/12/24 02/12/24 02/12/24 14:15 15:08 20:13 MCV 95.5 MCH 32.2 MCHC 33.7 RDW 15.9 Plt Count 254 MPV 8.7 L Immature Gran % (Auto) 1.3 H Neut % (Auto) 83.7 H Lymph % (Auto) 6.6 L Sioux % (Auto) 7.2 Eos % (Auto) 0.8 Baso % (Auto) 0.4 Lymph # (Auto) 0.7 L [place] # (Auto) 0.8 Eos # (Auto) 0.1 Baso # (Auto) 0.0 Abs Immat Gran (auto) 0.14 H Absolute Neuts (auto) 9.2 H Absolute Nucleated RBC 0.000 Nucleated RBC % (auto) 0.0 PT 11.1 INR 0.9 VBG pH VBG pCO2 VBG pO2 VBG HCO3 VBG O2 Saturation VBG Base Excess Anion Gap 12 Estim Creat Clear Calc 67.5 Estimated GFR > 60 Random Glucose 132 H Lactic Acid 0.8 Calcium 9.3 Magnesium 2.0 Total Bilirubin 1.5 H AST 20 ALT 20 Alkaline Phosphatase 59 Troponin I High Sens 9.4 B-Natriuretic Peptide 161 H Total Protein 6.3 L Albumin 3.8 TSH 0.94 Urine Color Yellow Urine Appearance Clear Urine pH 6.5 Ur Specific Decker 1.010 Urine Protein Negative Urine Glucose (UA) Negative Urine Ketones Negative Urine Blood Negative Urine Nitrite Negative Ur Leukocyte Esterase Trace H Urine RBC 0-2 Urine WBC 0-5 Ur Squamous Epith Cells 0-2 Urine Bacteria None Seen Hyaline Casts 0-2 Influenza Type A (PCR) NEGATIVE Influenza Type B (PCR) NEGATIVE RSV RNA Qual (PCR) NEGATIVE SARS-CoV-2 RNA (RT-PCR) NEGATIVE 02/12/24 02/12/24 02/13/24 20:16 20:23 06:19 MCV 93.8 MCH 31.4 MCHC 33.4 RDW 15.6 Plt Count 271 MPV 8.9 L Immature Gran % (Auto) Neut % (Auto) Lymph % (Auto) Sioux % (Auto) Eos % (Auto) Baso % (Auto) Lymph # (Auto) Sioux # (Auto) Eos # (Auto) Baso # (Auto) Abs Immat Gran (auto) Absolute Neuts (auto) Absolute Nucleated RBC 0.000 Nucleated RBC % (auto) 0.0 PT INR VBG pH 7.48 H VBG pCO2 43 VBG pO2 40 VBG HCO3 32 H VBG O2 Saturation 60.0 VBG Base Excess 8.4 Anion Gap 16 Estim Creat Clear Calc 84.3 Estimated GFR > 60 Random Glucose 160 H Lactic Acid Calcium 8.2 L D Magnesium Total Bilirubin AST ALT Alkaline Phosphatase Troponin I High Sens 9.1 B-Natriuretic Peptide Total Protein Albumin TSH Urine Color Urine Appearance Urine pH Ur Specific Decker Urine Protein Urine Glucose (UA) Urine Ketones Urine Blood Urine Nitrite Ur Leukocyte Esterase Urine RBC Urine WBC Ur Squamous Epith Cells Urine Bacteria Hyaline Casts Influenza Type A (PCR) Influenza Type B (PCR) RSV RNA Qual (PCR) SARS-CoV-2 RNA (RT-PCR) Assessment and Plan (1) Pericardial effusion: Status: Acute (2) Acute and chronic respiratory failure with hypoxia: Status: Acute Plan Pt is a 73-year-old female with a PMH significant for?crest syndrome, hypothyroidism, HLD, and [place] [facility] [place] for complete heart block requiring pacemaker placement on 12/16 with lead revision on 12/17 and prolonged bout of COVID currently still requiring 2L NC p.r.n. who presents to the ED for evaluation of increasing shortness of breath and palpitations x2 days. Pt will be admitted to the hospital for treatment and further evaluation of acute on chronic hypoxic respiratory failure most likely secondary to CHF, though also possibly secondary to interstitial lung disease. Acute on chronic hypoxic respiratory failure CTA with ground glass opacities suggestive of atypical/viral infection vs pulmonary edema, moderate pericardial effusion and trace bilateral pleural effusions Ground-glass opacities appear to be similar when compared to [place] [facility] [place] continue diuresis with IV lasix continue empiric azithromycin Xopenex p.r.n Echocardiogram pending to assess for pericardial effusion (echocardiogram from mid [place] [facility] with no evidence of pericardial effusion) Respiratory pathogen panel pending Cardiology and pulmonology following Blood cultures pending CREST syndrome Continue baseline steroids, 10 mg prednisone daily Hypokalemia, remains low replace mag normal HTN Continue metoprolol Hypothyroidism Continue levothyroxine Full Code DVT Prophylaxis: Lovenox Requires ongoing inpatient stay for management of hypoxic respiratory failure in the setting likely cardiac etiology. Patient will require hospitalization for administration of IV diuretics, close monitoring of labs, cardiac function, and respiratory status, as well as specialist consultation with Cardiology and pulmonology. Quality Stroke Does the patient have a stroke diagnosis?: No VTE Prior VTE?: No VTE Risk Level:: Medical - moderate - high VTE Device Contraindication: Treatment Not Indicated VTE Drug Contraindication: N/A - Med Ordered
[2024-02-13 13:08] LABS: B Type Natriuretic Peptide 158 pg/mL (<100)
[2024-02-13 14:06] LABS: Adenovirus PCR Not Detected (Not Detect.); Bordetella parapertussis PCR Not Detected (Not Detect.); Bordetella pertussis PCR Not Detected (Not Detect.); Chlamydia pneumoniae PCR Not Detected (Not Detect.); Coronavirus 229E PCR Not Detected (Not Detect.); Coronavirus HKU1 PCR Not Detected (Not Detect.); Coronavirus NL63 PCR Not Detected (Not Detect.); Coronavirus OC43 PCR Not Detected (Not Detect.); Human metapneumovirus PCR Not Detected (Not Detect.); Influenza A PCR Not Detected (Not Detect.); Influenza B PCR Not Detected (Not Detect.); Mycoplasma pneumoniae PCR Not Detected (Not Detect.); Parainfluenza 1 PCR Not Detected (Not Detect.); Parainfluenza 2 PCR Not Detected (Not Detect.); Parainfluenza 3 PCR Not Detected (Not Detect.); Parainfluenza 4 PCR Not Detected (Not Detect.); RSV PCR Not Detected (Not Detect.); Rhino/Enterovirus PCR Not Detected (Not Detect.)
[2024-02-13 14:15] LABS: SARS-CoV-2 PCR Not Detected (Not Detect.)
[2024-02-13 15:06] VITALS: BP 166/77; PULSE 104; RESP 18; TEMP 36.6; O2SAT 94
[2024-02-13] MEDS: vancomycin/NS 2,000 MG/500 ML PLAST..BAG 250 MG IV (18:38)
[2024-02-13 19:59] VITALS: BP 131/60; PULSE 93; RESP 17; TEMP 36.7; O2SAT 93
[2024-02-13] MEDS: TiZANidine HCL 4 MG TABLET 2 MG PO (21:00)
[2024-02-13] MEDS: Melatonin 3 MG TABLET 6 MG PO (21:03)
[2024-02-13] MEDS: Enoxaparin Sodium 40 MG/0.4 ML SYRINGE SUBCUT (23:52)
[2024-02-14] VITALS: BP 102/59; PULSE 79; RESP 19; TEMP 36.4; O2SAT 94
[2024-02-14 04:00] VITALS: BP 121/62; PULSE 80; RESP 20; TEMP 36.7; O2SAT 94
[2024-02-14] MEDS: Levothyroxine Sodium 88 MCG TABLET PO (05:46)
[2024-02-14 06:56] LABS: Anion Gap 13 (12-20); Blood Urea Nitrogen 22 mg/dL (9-16); Calcium 8.3 mg/dL (8.4-10.2); Carbon Dioxide 25 mmol/L (22-29); Chloride 111 mmol/L (96-108); Creatinine Clr Calc Pharmacy 80.3; Estimated Glomerular Filt Rate > 60; Glucose Random 99 mg/dL (60-115); Potassium 3.5 mmol/L (3.3-5.1); Sodium 145 mmol/L (135-145)
[2024-02-14] MEDS: vancomycin HCL 1,000 MG in 0.9 % Sodium Chloride 250 ML 270 MG IV (07:53)
[2024-02-14] MEDS: 0.9 % Sodium Chloride Flush 3 ML SYRINGE IVFLUSH (07:54)
[2024-02-14 08:00] VITALS: BP 140/68; PULSE 89; RESP 18; TEMP 36.4; O2SAT 92
[2024-02-14] MEDS: Metoprolol Succinate ER 25 MG TAB.ER.24H PO (08:41)
[2024-02-14] MEDS: NaPROXEN 250 MG TABLET PO (08:42)
[2024-02-14] MEDS: Atorvastatin Calcium 40 MG TABLET PO (08:42)
[2024-02-14] MEDS: Acetaminophen 325 MG TABLET 650 MG PO (08:42)
[2024-02-14] MEDS: predniSONE 10 MG TABLET PO (08:42)
[2024-02-14] MEDS: Furosemide 20 MG/2 ML VIAL IVPUSH (09:24)
[2024-02-14 11:04] VITALS: BP 142/67; PULSE 94; RESP 18; TEMP 36.9; O2SAT 94
--- NOTE | 2024-02-14 11:09 | PM.PNCARD ---
Subjective Subjective Date of Service: 02/14/24 Interval history: Feeling better. Less short of breath. Review of Systems Review of Systems Yes all other systems are reviewed and are negative Constitutional: Reports as per HPI and Reports no additional constitutional complaints Eyes: Reports as per HPI and Denies no additional eye complaints Denies system reviewed and no additional complaints, except as documented and Reports as per HPI Cardiovascular: Reports as per HPI, Reports no additional cardiovascular complaints, Denies acrocyanosis, Denies cool extremities, Denies chest pain, Denies leg edema, Denies lightheadedness, Denies palpitations and Reports dyspnea Respiratory: Reports as per HPI, Denies no additional respiratory complaints and Reports dyspnea Gastrointestinal: Reports as per HPI and Denies no additional gastrointestinal complaints Musculoskeletal: Reports no additional musculoskeletal complaints and Reports as per HPI Skin/Breast: Reports system reviewed and no additional complaints, except as docu Reports system reviewed and no additional complaints, except as documented and Reports as per HPI Psychiatric: Reports no additional psychiatric complaints and Reports as per HPI Endocrine: Reports no additional endocrine complaints, Reports as per HPI and Denies palpitations Hematologic/Lymphatic: Reports no additional hematologic/lymphatic complaints and Reports as per HPI Allergic/Immunologic: Reports no additional allergic/immunologic complaints and Reports as per HPI Physical Exam Vital Signs: Last Vital Signs Temp 98.4 F 02/14/24 11:04 Pulse 94 02/14/24 11:04 Resp 18 02/14/24 11:04 BP 142/67 H 02/14/24 11:04 Pulse Ox 94 02/14/24 11:04 O2 Del Method Room Air 02/14/24 11:04 O2 Flow Rate 2 02/13/24 08:00 Oxygen Flow Rate 2 02/12/24 13:49 BMI result Body Mass Index 31.8 Const General: comfortable and no acute distress Orientation/consciousness: patient oriented x3 HEENT Other: Unremarkable Head: Yes normal to inspection Neck Neck: Yes normal visual inspection Chest Chest palpation & inspection: normal inspection of the chest Resp Auscultation: clear to auscultation bilaterally Cardio Palpation: normal PMI Heart sounds: S1 normal heart sound present, S2 normal heart sound present, no gallops, no murmurs and no rubs GI Palpation (GI): Soft to palpation Back/Spine/Pelvis Other: unremarkable Skin General skin exam: no rashes or lesions noted Neuro General: patient oriented x3 Extrem General: Yes normal to inspection Psych Mental Status: mental status grossly normal Objective Labs and Meds 02/13/24 06:19 02/14/24 06:27 Lab results: Laboratory Results - last 24 hr 02/13/24 02/13/24 02/14/24 12:08 12:39 06:27 Hold Purple Top SEE NOTE Sodium 145 Potassium 3.5 Chloride 111 H Carbon Dioxide 25 Anion Gap 13 BUN 22 H Creatinine 0.63 Estim Creat Clear Calc 80.3 Estimated GFR > 60 Random Glucose 99 Calcium 8.3 L B-Natriuretic Peptide 158 H Respiratory Panel Bruno See Note Adenovirus (Rapid PCR) Not Detected B.pert (TEM-PCR) Not Detected B.parapertussis DNA PCR Not Detected C. pneumoniae DNA (PCR) Not Detected Coronavirus OC43 (PCR) Not Detected Coronavirus HKU1 (PCR) Not Detected Coronavirus 229E (PCR) Not Detected Coronavirus NL63 (PCR) Not Detected Human Metapneumovir PCR Not Detected Influenza A (RT-PCR) Not Detected Influenza B (RT-PCR) Not Detected M. pneumoniae (PCR) Not Detected Parainfluenza 1 (PCR) Not Detected Parainfluenza 2 (PCR) Not Detected Parainfluenza 3 (PCR) Not Detected Parainfluenza 4 (PCR) Not Detected RSV (PCR) Not Detected Entero/Rhino (PCR) Not Detected SARS-CoV-2 RNA (RT-PCR) Not Detected Progress Note: A&P Assessment and plan (1) Acute hypoxic respiratory failure: Status: Acute (2) HUDSON (dyspnea on exertion): Status: Acute (3) CREST (calcinosis, Raynaud's phenomenon, esophageal dysfunction, sclerodactyly, telangiectasia): Status: Acute (4) Status post cardiac pacemaker procedure: Status: Acute (5) Pericardial effusion: Status: Acute Plan Unremarkable high sensitivity troponins. Slightly increased cardiac BNP. CT chest report reviewed. There is question of diffuse patchy bilateral parenchymal opacities and there is question of atypical/viral infection, COVID-19 pneumonia versus pulmonary edema. Moderate pericardial effusion. Reactive lymph nodes. Coronary calcification. Mild emphysema. In the echocardiogram, LVEF is preserved and there is no wall motion abnormality. Mitral valve appears calcified with elevated gradients and could indicate moderate to severe calcific mitral stenosis. However, there is no evidence of pulmonary hypertension. The pericardial effusion itself is not very significant. Overall, unclear if her symptoms are from pulmonary fibrosis extra from crest syndrome versus COVID related interstitial disease versus truly cardiogenic pulmonary edema. Could be some combination of all of these. Recommended diagnostic left and right heart catheterization to assess further but patient states that she would not get anything done at this time as she has too much going on. In that case, can diuresis and discharged home. Will arrange follow-up with her primary patient service technician pst Dr. Bermudez. Time Spent With Patient Time: Total time managing care of this patient today ____ minutes. Progress Note: Quality Stroke Does the patient have a stroke diagnosis?: No Procedures Date of Service Date of Service: 02/14/24
--- NOTE | 2024-02-14 12:02 | P.DS_ITS ---
DS: Providers Provider Date of Service: 02/14/24 Date of admission: 02/12/24 23:37 Date of discharge: 02/14/24 Primary care physician: Soto Mari PA-C Consults: 02/12/24 23:19 Consult to Cardiology Routine Consulting Provider: [facility] [place] [facility] Reason for consultation: Pericardial effusion, pleural effusions, SOB, hypoxia Consult to Pulmonology Routine Consulting Provider: [facility] [place] Pulmon[facility] Reason for consultation: SOB, hypoxia Attending physician [facility] Discharging clinician: Nuha Valdes DS: Diagnosis Discharge Diagnosis (1) Acute hypoxic respiratory failure: Status: Acute (2) HUDSON (dyspnea on exertion): Status: Acute (3) CREST (calcinosis, Raynaud's phenomenon, esophageal dysfunction, sclerodactyly, telangiectasia): Status: Acute (4) Status post cardiac pacemaker procedure: Status: Acute (5) Pericardial effusion: Status: Acute DS: Summary Hospital Course Hospital Course: From H&P on the day of admission Pt is a 73-year-old female with a PMH significant for?crest syndrome, hypothyroidism, HLD, and recent admission to [facility] [place] on 12/16-12/30 for complete heart block requiring pacemaker placement on 12/16 with lead revision on 12/17 and prolonged bout of COVID currently still requiring 2L NC p.r.n. who presents to the ED for evaluation of increasing shortness of breath and palpitations x2 days. Patient states that her post- COVID SOB had been gradually getting better to the point where she was no longer needed supplemental O2 for the past few weeks. However, 2 days ago patient noted her O2 saturation was dropping into the mid 80s and she was feeling increasingly short of breath which required returning to O2 supplementation.. Also experienced intermittent palpitations that she describes as a ?fluttering and tremulous? feeling. This morning patient awoke especially out of breath that was not alleviated by constant O2 supplementation. Attempted to see pulmon ology but was unable to. Sent in transmission from pacemaker cardiology who was not concerned with the readings. Patient also has been experiencing some lightheadedness and dizziness and chest soreness associated with deep breathing. Denies any cough. No orthopnea. Denies lower leg edema or noticeable recent weight gain. Denies fever, chills, nausea, vomiting, abdominal pain. Patient states she has had chronic resting tremors since childhood, though notes they have worsened slightly the past few months after instillation of her pacemaker. In the ED pt was tachycardic up to 113, hypertensive up to 163/87, and hypoxic as low as 88% on 2 L NC. Labs were significant for mild leukocytosis of 11.0, potassium 3.2, bilirubin 1.5, and BNP 161. Serial troponins negative 9.5 and 9.1. Lactic acid WNL at 0.8. UA negative for UTI. Tested negative for COVID, RSV, and flu. CXR showed no evidence for active. CTA of chest found no evidence of pulmonary embolism, but did find diffuse patchy bilateral parenchymal ground- glass opacities in perihilar prominence and trace interlobular septal thickening suggestive atypical/viral infection pulmonary edema?. Also found slightly increased moderate pericardial effusion, new trace bilateral pleural effusions, and advanced coronary artery calcification. EKG demonstrated atrial sensed ventricular paced rhythm of 99 without evidence of significant ST elevations or depressions. Pt was treated with potassium chloride, Mag sulfate, Solu-Medrol, Xopenex, and ceftriaxone. Pt will be admitted to the hospital for treatment and further evaluation of acute on chronic hypoxic respiratory failure most likely secondary to CHF, though also possibly secondary to interstitial lung disease. Acute on chronic hypoxic respiratory failure CTA with ground glass opacities suggestive of atypical/viral infection vs pulmonary edema, moderate pericardial effusion and trace bilateral pleural effusions. Ground-glass opacities appear to be similar when compared to CTA from [facility] [place] 12/23. Seen by pulmonology who felt symptoms were due to fluid overload and recommended to continue diuresis. She received IV Lasix and her dyspnea improved. Respiratory pathogen panel was negative. Limited Echocardiogram was obtained to evaluate pericardial effusion and revealed a small loculated pericardial effusion. Will need outpatient surveillance.Respiratory pathogen pa jason negative. She was seen in consultation by Cardiology as well and mitral valve appears calcified with elevated gradients and could indicate moderate to severe calcific mitral stenosis however there is no evidence of pulmonary hypertension. [place] that it was unclear symptoms were related to pulmonary fibrosis from CREST syndrome versus COVID related interstitial lung disease versus cardiogenic pulmonary edema or some combination of the above. Recommended diagnostic left and right heart catheterization but patient prefers to do this as an outpatient. Will discharge with low-dose Lasix and plans for outpatient follow-up with Cardiology and Pulmonary. recommend repeat BMP in one week. Blood cultures intially grew 1/2 GPC,treated with vancomycin; final cultures coagulase-negative staph, likely contamination, no antibiotics indicated. Patient is off oxygen ambulating without dyspnea and is eager to return home. She will be discharged home to resume home VNA and PT services Time Attestation Discharge Coordination Time (in mins): 32 Quality: Safe Use of Opioids Does Pt have an Active Cancer Diagnosis on the Problem List?: No Quality: Stroke Does the patient have a stroke diagnosis?: No Physical Exam Vital Signs: Vital Signs: Last Vital Signs Temp 98.4 F 02/14/24 11:04 Pulse 94 02/14/24 11:04 Resp 18 02/14/24 11:04 BP 142/67 H 02/14/24 11:04 Pulse Ox 94 02/14/24 11:04 O2 Del Method Room Air 02/14/24 11:04 O2 Flow Rate 2 02/13/24 08:00 Oxygen Flow Rate 2 02/12/24 13:49 BMI result Body Mass Index 31.8 Const: General: cooperative, comfortable, no acute distress, alert and awake Nutritional Appearance: overweight Orientation/consciousness: patient oriented x3 Resp: Other: No wheezes, rhonchi, rales Effort & Inspection: normal respiratory effort, able to speak in complete sentences, no respiratory distress and no use of accessory muscles Auscultation: clear to auscultation bilaterally Cardio: Rate: regular rate Heart sounds: S1 normal heart sound present and S2 normal heart sound present GI: Inspection: No distended Palpation (GI): Soft to palpation and nontender Neuro: General: patient oriented x3, moves all extremities and CN's II-XI intact bilaterally Extrem: General: Yes no pedal edema DS: Data Data Completed and Pending Labs on day of discharge: Laboratory Results - last 24 hr 02/13/24 02/13/24 02/14/24 12:08 12:39 06:27 Hold Purple Top SEE NOTE Sodium 145 Potassium 3.5 Chloride 111 H Carbon Dioxide 25 Anion Gap 13 BUN 22 H Creatinine 0.63 Estim Creat Clear Calc 80.3 Estimated GFR > 60 Random Glucose 99 Calcium 8.3 L B-Natriuretic Peptide 158 H Respiratory Panel Bruno See Note Adenovirus (Rapid PCR) Not Detected B.pert (TEM-PCR) Not Detected B.parapertussis DNA PCR Not Detected C. pneumoniae DNA (PCR) Not Detected Coronavirus OC43 (PCR) Not Detected Coronavirus HKU1 (PCR) Not Detected Coronavirus 229E (PCR) Not Detected Coronavirus NL63 (PCR) Not Detected Human Metapneumovir PCR Not Detected Influenza A (RT-PCR) Not Detected Influenza B (RT-PCR) Not Detected M. pneumoniae (PCR) Not Detected Parainfluenza 1 (PCR) Not Detected Parainfluenza 2 (PCR) Not Detected Parainfluenza 3 (PCR) Not Detected Parainfluenza 4 (PCR) Not Detected RSV (PCR) Not Detected Entero/Rhino (PCR) Not Detected SARS-CoV-2 RNA (RT-PCR) Not Detected Preliminary micro results at discharge 02/12/24 20:13 Blood Culture - Preliminary Blood - Venous No growth after 24 hours. Discharge Plan Discharge Anticipated Discharge Date/Time: 02/14/24 12:08 Patient Disposition: Home Health Service Discharge Diagnosis: Acute on chronic respiratory failure Pulmonary edema Crest syndrome Referrals: Soto Mari PA-C [Primary Care Provider] - 1 Week Chad Teran MD [Physician] - 1 Week Discharge Medications: New furosemide [Lasix] 20 mg tablet 20 mg PO DAILY 30 Days Qty: 30 0RF Continued tizanidine 2 mg tablet 2 mg PO BEDTIME PRN (Reason: muscle spasticity) 14 Days Qty: 14 0RF hydrocortisone [Anti-Itch (HC)] 1 % cream 1 appl topical BID PRN (Reason: skin irritation) 14 Days Qty: 28.4 0RF meclizine [Dramamine (meclizine)] 25 mg tablet 25 mg PO BID PRN (Reason: dizziness) acetaminophen [Tylenol] 325 mg Tablet 650 mg PO QID PRN (Reason: Pain) naproxen sodium 220 mg Capsule 220 mg PO Q12H PRN (Reason: Muscle Pain) albuterol sulfate 90 mcg/actuation HFA aerosol inhaler 2 puff inhalation Q6H PRN (Reason: wheezing) atorvastatin 40 mg tablet 40 mg PO DAILY levothyroxine 88 mcg tablet 88 mcg PO DAILY Qty: 30 5RF prednisone 10 mg tablet 10 mg PO DIRECTED Qty: 50 0RF Rx Instructions: Take 4 tabs daily for 5 days, then go down by 1 tab every 5 days metoprolol succinate 25 mg tablet extended release 24 hr 25 mg PO DAILY Discontinued hydrochlorothiazide 25 mg tablet 25 mg PO DAILY Qty: 30 3RF Discharge Orders: Discharge Order (Routine); Ordered 02/14/24 Ordered By: Nuha Valdes Activity on Discharge: As tolerated Stand Alone Forms: Patient Portal Discharge page Print Language: Slovak Other Ambulatory Orders: Basic Metabolic Panel (Routine) Timeframe: 1 Week Facility: [facility] - Location: Laboratory Ordered By: Nuha Valdes Care Plan Goals: See below Health Concerns: Acute on chronic respiratory failure with hypoxia Pulmonary edema Pericardial effusion Plan of Treatment: Stop taking hydrochlorothiazide Start taking Lasix Follow-up outpatient with Cardiology to schedule cardiac catheterization Follow-up with pulmonology as scheduled Call to schedule follow-up appointment with PCP as needed recheck labs in one week Assessment: See discharge summary Patient Instructions: Furosemide (By mouth)
--- NOTE | 2024-02-14 12:24 | MHC.CM.PN ---
PT REPORTS SHE LIVES WITH HER AND IS INDEPENDENT SHE HAS HOME OXYGEN FROM [place] SHE USES PRN SHE IS ACTIVE WITH A VNA., BUT DOES NOT KNOW THE AGENCY NAME COPY OF HCP REQUESTED PCP: CHOLO DENNISON IMM DELIVERED PT WILL DC HOME TODAY WITH RESUMPTION OF VNA DAUGHTER TO TRANSPORT
== END 2024-02-14 13:20 | disposition home health service (06) | DRG 545 ==
LOC: HO.ED 19:57 → HO.EDOVER 23:38 → HO.IMC 02-13 07:30
PROVIDERS: Emergency Medicine; Nurse Practitioner Family; Admitting Provider Student in an Organized Health Care Education/Training Program; Emergency Provider Internal Medicine; PCP Physician Assistant; Visit Provider Physician Assistant Medical
DX: M34.1 CR(E)ST syndrome (principal); J96.01 Acute respiratory failure with hypoxia; I44.2 Atrioventricular block, complete; J84.178 Other interstitial pulmonary diseases with fibrosis in diseases classified elsewhere; J43.9 Emphysema, unspecified; I05.0 Rheumatic mitral stenosis; E03.9 Hypothyroidism, unspecified; E78.5 Hyperlipidemia, unspecified; Z95.0 Presence of cardiac pacemaker; Z87.891 Personal history of nicotine dependence; Z20.822 Contact with and (suspected) exposure to COVID-19; Z79.890 Hormone replacement therapy; Z79.899 Other long term (current) drug therapy
CPT/HCPCS: 0241U; 36415; 71046; 71275; 80048; 80053; 81001; 82803; 83605; 83735; 83880; 84443; 84484; 85025; 85027; 85610; 87040; 87147; 87205; 87633; 93005; 93306; 94640; 99285; J0456; J0696; J1650; J1940; J2919; J3370; J3475; Q9957; Q9967

== ENCOUNTER 2024-02-12 23:37 | Outpatient (BNV) | payer MEDICARE, OTHER, SELFPAY | END 2024-02-13 07:00 | PROVIDERS: Admitting Provider Student in an Organized Health Care Education/Training Program; Emergency Provider Internal Medicine; PCP Physician Assistant; Visit Provider Internal Medicine | DX: I34.2 Nonrheumatic mitral (valve) stenosis (principal); I34.81 Nonrheumatic mitral (valve) annulus calcification; I35.8 Other nonrheumatic aortic valve disorders | CPT/HCPCS: 93306; 93356 ==

== ENCOUNTER → 2024-02-12 23:37 | Outpatient (BNV) | payer MEDICARE, OTHER, SELFPAY | PROVIDERS: Admitting Provider Student in an Organized Health Care Education/Training Program; Emergency Provider Internal Medicine; PCP Physician Assistant; Visit Provider Internal Medicine Pulmonary Disease | DX: J96.01 Acute respiratory failure with hypoxia (principal); J81.1 Chronic pulmonary edema; M34.1 CR(E)ST syndrome | CPT/HCPCS: 99222 ==

== ENCOUNTER → 2024-02-12 23:37 | Outpatient (BNV) | payer MEDICARE, OTHER, SELFPAY | PROVIDERS: Admitting Provider Student in an Organized Health Care Education/Training Program; Emergency Provider Internal Medicine; PCP Physician Assistant; Visit Provider Internal Medicine | DX: J96.01 Acute respiratory failure with hypoxia (principal); M34.1 CR(E)ST syndrome; Z95.0 Presence of cardiac pacemaker; I31.39 Other pericardial effusion (noninflammatory) | CPT/HCPCS: 93010; 99223; 99233 ==

== ENCOUNTER → 2024-02-12 23:37 | Outpatient (BNV) | payer MEDICARE, OTHER, SELFPAY | PROVIDERS: Admitting Provider Student in an Organized Health Care Education/Training Program; Emergency Provider Internal Medicine; PCP Physician Assistant; Visit Provider Physician Assistant Medical | DX: J96.21 Acute and chronic respiratory failure with hypoxia (principal) | CPT/HCPCS: 99223; 99232; 99239 ==

== ENCOUNTER → 2024-02-12 23:59 | Outpatient (BNV) | payer MEDICARE, OTHER, SELFPAY ==
--- NOTE | 2024-02-28 19:32 | A.OFFVIS_ITS ---
Intake Visit Reasons: Remote Device Check-[employer] Allergies codeine Allergy (Severe, Verified 02/19/24 14:50) felt like going to propranolol Allergy (Intermediate, Verified 02/19/24 14:50) dizziness Seasonal Allergies Allergy (Intermediate, Verified 02/19/24 14:50) Sneezing, vertigo PFSH Medical History (Updated 02/19/24 @ 15:18 by Pancho Monson MD) Bifascicular block Supplemental oxygen dependent CREST (calcinosis, Raynaud's phenomenon, esophageal dysfunction, sclerodactyly, telangiectasia) Dyspnea on exertion Pericardial effusion Complete heart block Hypothyroid Enlarged thyroid Hypertension Multinodular thyroid Telangiectasia Dysphagia Surgical History Status post cardiac pacemaker procedure S/P cardiac cath S/P tooth extraction Hx of colonoscopy H/O breast biopsy Family History Father Heart disease Sister Ovarian cancer Brother Heart attack Stroke Mother Thyroid disease Brother Asthma Social History Household Members: Spouse Housing: House Do you presently have visiting nurse or other home services: Yes ([facility] ,PT) Alcohol intake: never Patient Tobacco Use Status: Former Tobacco user Tobacco use type: Cigarette Years Smoked: 20 +/- e-Cigarette/Vaping Use: Never Used Second Hand Smoke Exposure: Yes Advance Directives Date on File: 02/13/24 service: No Current occupational status: retired 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 ELECTRIC ARC FURNACE OPERATOR 99.9%. [id number]-RB Cardiac Device Check, pacemaker dual lead Procedure code (CPT) selection complete Assessment & Plan Assessment & Plan (1) S/P placement of cardiac pacemaker: Code(s): Z95.0 - Presence of cardiac pacemaker Category: Surgical Plan: Coding Level of Care Code Procedure Only Diagnoses S/P placement of cardiac pacemaker Z95.0 CPT Codes Cardiac Device Check - Cardiac Device 2: 19025-MY Cardiac Device Check, pacemaker dual lead ([id number])
== END ==
PROVIDERS: PCP Physician Assistant; Visit Provider Internal Medicine Cardiovascular Disease
DX: Z45.018 Encounter for adjustment and management of other part of cardiac pacemaker (principal)
CPT/HCPCS: 93280

== ENCOUNTER 2024-02-16 13:56 | Outpatient (REF) | payer MEDICARE, OTHER, SELFPAY ==
[2024-02-16 15:23] LABS: Anion Gap 14 (12-20); Blood Urea Nitrogen 31 mg/dL (9-16); Calcium 9.4 mg/dL (8.4-10.2); Carbon Dioxide 28 mmol/L (22-29); Chloride 107 mmol/L (96-108); Estimated Glomerular Filt Rate > 60; Glucose Random 172 mg/dL (60-115); Potassium 4.4 mmol/L (3.3-5.1); Sodium 145 mmol/L (135-145)
== END 2024-02-16 13:57 | disposition home or self-care (01) ==
LOC: HO.LAB 13:56
PROVIDERS: PCP Physician Assistant; Visit Provider Internal Medicine Pulmonary Disease
DX: J81.1 Chronic pulmonary edema (principal); M34.1 CR(E)ST syndrome; R06.09 Other forms of dyspnea; Z99.81 Dependence on supplemental oxygen; Z87.891 Personal history of nicotine dependence
CPT/HCPCS: 36415; 80048; 99212

== ENCOUNTER 2024-02-16 13:56 | Outpatient (AMB) | payer MEDICARE, OTHER, SELFPAY ==
[2024-02-16 13:58] VITALS: BP 150/78; PULSE 112; O2SAT 92; BMI 31.0
--- NOTE | 2024-02-16 13:58 | A.OFFVIS_ITS ---
Vital Signs 02/16/24 13:58 Height 5 ft 3 in Weight 175 lb 4.28 oz BMI 31.0 BP 150/78 H Blood Pressure Location Rt brachial Position Sitting Pulse 112 H Pulse Source Doppler Pulse Oximetry (%) 92 Oxygen Delivery Method Room Air Intake Visit Reasons: hypoxic resp failure Allergies codeine Allergy (Severe, Verified 02/12/24 13:53) felt like going to propranolol Allergy (Intermediate, Verified 02/12/24 13:53) dizziness Seasonal Allergies Allergy (Intermediate, Verified 02/12/24 13:53) Sneezing, vertigo HPI HPI hypoxic resp failure: Details: 73-year-old lady, former 40 pack smoker, quit 30 years prior, with underlying CREST under Rheumatology care, now followed for pulmonary component dyspnea on exertion. Patient's symptoms for previously controlled prednisone 5 mg daily. After the last office visit patient was hospitalized at [facility] for pulmonary edema and exacerbation of diastolic congestive heart failure, treated with course of diuretic with significant improvement and discharged on Lasix 20 mg daily. However, patient's symptoms started to recur, particularly orthopnea and paroxysmal nocturnal dyspnea. She has been intermittently requiring supplemental oxygen. [facility] Medical History (Updated 02/16/24 @ 14:53 by Pancho Monson MD) Supplemental oxygen dependent CREST (calcinosis, Raynaud's phenomenon, esophageal dysfunction, sclerodactyly, telangiectasia) Dyspnea on exertion Pericardial effusion Complete heart block Hypothyroid Bifascicular block Enlarged thyroid Hypertension Multinodular thyroid Telangiectasia Dysphagia Surgical History (Updated 02/16/24 @ 00:02 by Dave Contreras) Status post cardiac pacemaker procedure S/P cardiac cath S/P tooth extraction Hx of colonoscopy H/O breast biopsy Family History Father Heart disease Sister Ovarian cancer Brother Heart attack Stroke Mother Thyroid disease Brother Asthma Social History Household Members: Spouse Housing: House Do you presently have visiting nurse or other home services: Yes (VNA ,PT) Alcohol intake: never Patient Tobacco Use Status: Former Tobacco user Tobacco use type: Cigarette Years Smoked: 20 +/- e-Cigarette/Vaping Use: Never Used Advance Directives Date on File: 02/13/24 service: No Current occupational status: retired 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 Cognitive needs: No Hearing needs: No Vision needs: No Review of Systems Const Denies daytime sleepiness, Denies excessive sweating, Denies fatigue, Denies fever(s), Denies lethargy, Denies malaise, Denies night sweats, Denies snoring and Denies weight loss Eyes Denies blurry vision and Denies itchy eyes ENT Denies nasal congestion, Denies post nasal drip, Denies sinus pain, Denies sinus pressure and Denies other ( Thrush) Card Denies chest pain, Denies pedal edema, Denies dyspnea, Reports orthopnea and Reports paroxysmal nocturnal dyspnea Resp Denies cough, Denies hemoptysis, Denies excessive phlegm production, Denies dyspnea, Denies snoring and Denies wheezing GI Denies abdominal pain and Denies heartburn Musc Denies myalgias, Denies arthralgias and Denies joint swelling Skin/Breast Denies rash Neuro Denies memory loss and Denies seizure-like activity Psych Denies abnormal sleep pattern, Denies anxiety and Denies memory loss Endo Denies excessive sweating, Denies fatigue and Denies heat intolerance Kenneth/Lymph Denies easy bruising Aller/Immun Denies itchy eyes, Denies seasonal rhinorrhea and Denies wheezing Physical Exam Vital Signs: Last Vital Signs Pulse 112 H 02/16/24 13:58 BP 150/78 H 02/16/24 13:58 Pulse Ox 92 02/16/24 13:58 Oxygen Delivery Method Room Air 02/16/24 13:58 BMI result Body Mass Index 31.0 Const General: no acute distress and alert Nutritional Appearance: not obese Orientation/consciousness: Other orientation findings ( oriented) HEENT Head: Yes atraumatic Eyes General: appearance normal, both eyes and all related structures Sclerae: sclerae normal EOM: EOMs intact bilaterally Neck Neck: Yes supple Lymphatic: no lymphadenopathy noted Resp Effort & Inspection: normal respiratory effort and no use of accessory muscles Auscultation: clear to auscultation bilaterally Cardio Rate: regular rate Rhythm: regular rhythm Heart sounds: no gallops, no murmurs and no rubs Skin General skin exam: other ( warm) Extrem General: No clubbing, No cyanosis and Yes edema (1+ bilateral) Assessment & Plan Assessment & Plan (1) Pulmonary edema: Code(s): J81.1 - Chronic pulmonary edema Category: Medical (2) CREST (calcinosis, Raynaud's phenomenon, esophageal dysfunction, sclerodactyly, telangiectasia): Code(s): M34.1 - CR(E)ST syndrome Category: Medical (3) Supplemental oxygen dependent: Code(s): Z99.81 - Dependence on supplemental oxygen Category: Medical (4) Dyspnea on exertion: Code(s): R06.09 - Other forms of dyspnea Category: Medical Plan Now with recurrence of pulmonary edema/orthopnea/paroxysmal nocturnal dyspnea symptoms on current dose of Lasix 20 mg daily. Will increase to 60 mg daily for 3 days. Will check BMP as patient previously needed additional potassium. Will likely increase baseline to 40 mg daily thereafter. Continue supplemental oxygen to maintain O2 saturation above 88%. Orders: Orders Basic Metabolic Panel Today J81.1 - Chronic pulmonary edema Coding Level of Care Code Est Pt Level 4 (12938) Complex EM visit Add On G2211 Diagnoses Pulmonary edema J81.1 CREST (calcinosis, Raynaud's phenomenon, esophageal dysfunction, sclerodactyly, telangiectasia) M34.1 Supplemental oxygen dependent Z99.81 Dyspnea on exertion R06.09
== END 2024-02-16 14:20 | disposition home or self-care (01) ==
PROVIDERS: PCP Physician Assistant; Visit Provider Internal Medicine Pulmonary Disease
DX: J81.1 Chronic pulmonary edema (principal); M34.1 CR(E)ST syndrome; Z99.81 Dependence on supplemental oxygen; R06.09 Other forms of dyspnea
CPT/HCPCS: 99214; G2211

== ENCOUNTER 2024-02-18 10:22 | Outpatient (AMB) | payer MEDICARE, OTHER, SELFPAY ==
--- NOTE | 2024-02-18 10:36 | A.OFFPC_ITS ---
Vital Signs 02/18/24 10:39 Height 5 ft 3 in Weight 174 lb 2 oz BMI 30.8 BP 116/80 Blood Pressure Location Lt brachial Position Sitting Pulse 94 Pulse Source Pulse Oximeter Pulse Oximetry (%) 95 Oxygen Delivery Method Room Air Intake Visit Reasons: re-establishing Intake Note: Patient is here today for IMANI from A.O Receptionist Scheduler Required: No Financial Auditor: Not Required per policy Accompanied by: Self / Same As Patient Allergies codeine Allergy (Severe, Verified 02/19/24 14:50) felt like going to propranolol Allergy (Intermediate, Verified 02/19/24 14:50) dizziness Seasonal Allergies Allergy (Intermediate, Verified 02/19/24 14:50) Sneezing, vertigo Medication List - Last Reconciled 02/19/24 by Hank Ochoa MD acetaminophen (Tylenol) 650 mg PO QID PRN albuterol sulfate 90 mcg/actuation 2 puffs inhalation Q6H PRN atorvastatin 40 mg PO DAILY furosemide (Lasix) 60 mg PO DAILY hydrocortisone 1% (Anti-Itch (hydrocortisone)) 1 appl topical BID PRN 2 weeks levothyroxine 88 mcg PO DAILY meclizine (Dramamine (meclizine)) 25 mg PO BID PRN metoprolol succinate ER 25 mg PO DAILY naproxen sodium 220 mg PO Q12H PRN prednisone 10 mg PO DIRECTED tizanidine 2 mg PO BEDTIME PRN 14 days Tobacco use date assessed: 02/18/24 Fall risk assessment: No Falls in past year Last assessed Fall Risk: 02/18/24 Dental Screening Dental Screen Date: 10/22/23 HPI re-establishing HPI Details 73-year-old female [facility] care. Her provider has left the practice and I will be assuming her care. Patient has been diagnosed with CREST syndrome. She is short of breath and is on home oxygen and wears a daily pulse oximeter. She sees a nitro man who has been tapering her prednisone. Recently she had a complete heart block and a permanent pacemaker was placed. Patient sees leather novelty parts cutter and an ultrasonographer. Patient also suffers from pain and excessive movements of her lower legs at night. She has taking an [id number] medication which seems to be of help. [facility] Medical History (Updated 02/19/24 @ 15:00 by Hank Ochoa MD) Bifascicular block Supplemental oxygen dependent CREST (calcinosis, Raynaud's phenomenon, esophageal dysfunction, sclerodactyly, telangiectasia) Dyspnea on exertion Pericardial effusion Complete heart block Hypothyroid Enlarged thyroid Hypertension Multinodular thyroid Telangiectasia Dysphagia Surgical History Status post cardiac pacemaker procedure S/P cardiac cath S/P tooth extraction Hx of colonoscopy H/O breast biopsy Family History Father Heart disease Sister Ovarian cancer Brother Heart attack Stroke Mother Thyroid disease Brother Asthma Social History Household Members: Spouse Housing: House Do you presently have visiting nurse or other home services: Yes (VNA ,PT) Alcohol intake: never Patient Tobacco Use Status: Former Tobacco user Tobacco use type: Cigarette Years Smoked: 20 +/- e-Cigarette/Vaping Use: Never Used Second Hand Smoke Exposure: Yes Advance Directives Date on File: 02/13/24 service: No Current occupational status: retired 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 Carson Quiles, Malinda Morales, Tang Awad and colleagues, with an educational kevin from [employer]. Physical exam (Primary Care) Vital Signs: Last Vital Signs Pulse 94 02/18/24 10:39 BP 116/80 02/18/24 10:39 Pulse Ox 95 02/18/24 10:39 Oxygen Delivery Method Room Air 02/18/24 10:39 BMI result Body Mass Index 30.8 Tobacco/Smoking Status: Tobacco use Status Tobacco use date assessed 02/18/24 02/18/24 10:47 Patient Tobacco Use Status Former Tobacco user 02/18/24 10:37 Tobacco use type Cigarette 02/18/24 10:37 e-Cigarette/Vaping Use Never Used 02/18/24 10:37 Thrive Assessment: Date of Thrive Assessment Date Thrive assessed 02/14/24 02/18/24 10:37 Const General: cooperative and healthy appearing Nutritional Appearance: well nourished Orientation/consciousness: patient oriented x3 Limitations: no limitations HENMT Head: Yes normal to inspection Eyes General: appearance normal, both eyes and all related structures Neck Neck: Yes normal visual inspection Chest Chest palpation & inspection: normal palpation of entire chest wall Resp Effort & Inspection: normal respiratory effort Neuro General: patient oriented x3 Assessment and Plan Assessment & Plan (1) CREST (calcinosis, Raynaud's phenomenon, esophageal dysfunction, sclerodactyly, telangiectasia): Code(s): M34.1 - CR(E)ST syndrome Plan: Continue current management as per pulmonology. Continue home oxygen. (2) Bifascicular block: Code(s): I45.2 - Bifascicular block Plan: Continue to follow-up with the car ferrier Dr. Bermudez. Orders: Orders MM screening mammo BI Today Hank Ochoa MD Z12.31 - Encounter for screening mammogram for malignant neoplasm of breast Referrals Cologuard Test Hank Ochoa MD Z12.11 - Encounter for screening for malignant neoplasm of colon Medications: Changed From furosemide (Lasix) 20 mg PO DAILY 30 days 30 tabs 0RF To furosemide (Lasix) 60 mg PO DAILY SHANTELL Brown Coding Level of Care Code Est Pt Level 4 (91655) Diagnoses CREST (calcinosis, Raynaud's phenomenon, esophageal dysfunction, sclerodactyly, telangiectasia) M34.1 Bifascicular block I45.2
[2024-02-18 10:39] VITALS: BP 116/80; PULSE 94; O2SAT 95; BMI 30.8
== END 2024-02-18 11:20 | disposition home or self-care (01) ==
PROVIDERS: PCP Physician Assistant; Visit Provider Internal Medicine
DX: M34.1 CR(E)ST syndrome (principal); I45.2 Bifascicular block
CPT/HCPCS: 99214

== ENCOUNTER 2024-02-22 14:46 | Outpatient (REF) | payer MEDICARE, OTHER, SELFPAY ==
[2024-02-22 17:22] LABS: Anion Gap 14 (12-20); Blood Urea Nitrogen 31 mg/dL (9-16); Calcium 9.5 mg/dL (8.4-10.2); Carbon Dioxide 27 mmol/L (22-29); Chloride 108 mmol/L (96-108); Estimated Glomerular Filt Rate > 60; Glucose Random 157 mg/dL (60-115); Potassium 3.8 mmol/L (3.3-5.1); Sodium 145 mmol/L (135-145)
[2024-02-22 17:38] LABS: Thyroid Stimulating Hormone 0.73 uIU/mL (0.32-4.0)
[2024-02-22 17:39] LABS: Free T4 (Free Thyroxine) 1.18 ng/dL (0.71-1.85)
== END 2024-02-22 14:47 | disposition home or self-care (01) ==
LOC: HO.LAB 14:46
PROVIDERS: Internal Medicine Endocrinology, Diabetes & Metabolism; PCP Internal Medicine; Visit Provider Physician Assistant Medical
DX: J81.1 Chronic pulmonary edema (principal); E03.9 Hypothyroidism, unspecified; J96.21 Acute and chronic respiratory failure with hypoxia
CPT/HCPCS: 36415; 80048; 84439; 84443; 99212

== ENCOUNTER 2024-02-22 15:05 | Outpatient (AMB) | payer MEDICARE, OTHER, SELFPAY ==
[2024-02-22 15:16] VITALS: BP 110/70; PULSE 98; BMI 31.2
--- NOTE | 2024-02-22 15:16 | MHC.OFFVIS ---
Vital Signs 02/22/24 15:16 Height 5 ft 3 in Weight 176 lb 5.917 oz BMI 31.2 BP 110/70 Blood Pressure Location Rt brachial Position Sitting Pulse 98 Pulse Source Pulse Oximeter Intake Visit Reasons: f/up Intake Note: pt state that she have some problem with breathing. she was in the ED last weekend. Triage Licensed Practical Nurse Required: No Accompanied by: Self / Same As Patient Allergies codeine Allergy (Severe, Verified 02/19/24 14:50) felt like going to propranolol Allergy (Intermediate, Verified 02/19/24 14:50) dizziness Seasonal Allergies Allergy (Intermediate, Verified 02/19/24 14:50) Sneezing, vertigo Medication List - Last Reconciled 02/22/24 by Cristofer Bermudez MD acetaminophen (Tylenol) 650 mg PO QID PRN albuterol sulfate 90 mcg/actuation 2 puffs inhalation Q6H PRN atorvastatin 40 mg PO DAILY furosemide 40 mg PO DAILY hydrocortisone 1% (Anti-Itch (hydrocortisone)) 1 appl topical BID PRN 2 weeks levothyroxine 88 mcg PO DAILY meclizine (Dramamine (meclizine)) 25 mg PO BID PRN metoprolol succinate ER 25 mg PO DAILY naproxen sodium 220 mg PO Q12H PRN prednisone 10 mg PO DIRECTED tizanidine 2 mg PO BEDTIME PRN 14 days HPI Comments Details: 73-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 She has been experiencing shortness of breath for long time. She was a smoker from age [age] and smoke heavily. She had pulmonary function test done recently which reveals some concern for emphysema. She has been on inhalers without any change in her breathing. She is saying she is able to walk a block and go up a flight of stairs but after that she gets shortness of breath which limits her activity. She has no chest discomfort. She underwent echocardiography to rule out pulmonary hypertension and there was no evidence of pulmonary hypertension on that. There was small pericardial effusion noticed. She has Raynaud's and hypertension and has been taking hydrochlorothiazide and amlodipine with good control blood pressure as well as Raynaud. She has been following with GI and Rheumatology. 06/01/23: She returns for follow-up. Her blood pressure is elevated in the office 150/80. Also on April 10 she had blood pressure checked which was 160/90. She has been taking hydrochlorothiazide every other day. She had echocardiography performed she showing small pericardial effusion but no tamponade physiology. She has small pericardial effusion before in July 2022. She is denying any significant chest discomfort. She is saying her breathing has been better since she has been on prednisone. She is taking 5 mg daily. 02/22/24: She is here for follow-up. Recent admission to [facility] with shortness of breath and hypoxia where CT scan was concerning for bilateral ground-glass infiltrates concerning for interstitial lung disease versus CHF. She also has recent COVID-19 infection. In November she was at [facility] with COVID-19 and bradycardia and had permanent pacemaker placed. While she was at [facility] she was advised to undergo [id number] heart catheterization but she decided against it. She has seen pulmonology and her Lasix was increased from 20-60 mg but she has been mostly taking 40 mg at this point. She is saying her breathing is okay but she does get shortness of breath with exertion. She also has a continuous pulse ox machine and she has noted that her saturations are at times low in 70s but she also has Raynaud's. During her admission at [facility] echocardiography raise concern for mitral stenosis with moderate to severe MS. Overall she is stable. Denying any chest discomfort any other complaints. [facility] Medical History (Updated 02/19/24 @ 15:18 by Pancho Monson MD) Bifascicular block Supplemental oxygen dependent CREST (calcinosis, Raynaud's phenomenon, esophageal dysfunction, sclerodactyly, telangiectasia) Dyspnea on exertion Pericardial effusion Complete heart block Hypothyroid Enlarged thyroid Hypertension Multinodular thyroid Telangiectasia Dysphagia Surgical History Status post cardiac pacemaker procedure S/P cardiac cath S/P tooth extraction Hx of colonoscopy H/O breast biopsy Family History Father Heart disease Sister Ovarian cancer Brother Heart attack Stroke Mother Thyroid disease Brother Asthma Social History Household Members: Spouse Housing: House Do you presently have visiting nurse or other home services: Yes ([facility] ,[place]) Alcohol intake: never Patient Tobacco Use Status: Former Tobacco user Tobacco use type: Cigarette Years Smoked: 20 +/- e-Cigarette/Vaping Use: Never Used Second Hand Smoke Exposure: Yes Advance Directives Date on File: 02/13/24 service: No Current occupational status: retired 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 Cognitive needs: No Hearing needs: No Vision needs: No Review of Systems Const Denies chills, Denies fatigue, Denies fever(s), Denies frequent falls, Denies weakness, Denies weight gain and Denies weight loss ENT Denies dizziness Card Denies chest pain, Denies leg edema, Denies lightheadedness, Denies palpitations, Reports dyspnea and Reports dyspnea on exertion Resp Denies cough, Reports dyspnea and Reports dyspnea on exertion GI Denies hematochezia Musc Denies abnormal gait, Denies muscle weakness, Denies numbness, Denies radiating pain into limb and Denies tingling Neuro Denies abnormal gait, Denies dizziness, Denies frequent falls, Denies numbness, Denies tingling and Denies weakness Endo Denies fatigue and Denies palpitations Physical Exam Vital Signs: Last Vital Signs Pulse 98 02/22/24 15:16 BP 110/70 02/22/24 15:16 BMI result Body Mass Index 31.2 GENERAL APPEARANCE: in no acute distress, pleasant. NECK: no carotid bruit, no jugular venous distention. SKIN: no suspicious lesions, warm and dry. HEART: no murmurs, regular rate and rhythm. LUNGS: clear to auscultation bilaterally. ABDOMEN: soft, nontender. EXTREMITIES: no edema. PERIPHERAL PULSES: equal. NEUROLOGIC: No gross deficits, AAO X 3 Assessment & Plan Assessment & Plan (1) Dyspnea on exertion: Code(s): R06.09 - Other forms of dyspnea Category: Medical (2) Acute and chronic respiratory failure with hypoxia: Code(s): J96.21 - Acute and chronic respiratory failure with hypoxia Category: Medical Plan [age] female who is here for follow-up. She was recently in the hospital with shortness of breath and CT scan raise concern for bilateral infiltrates concerning for interstitial lung disease related to COVID-19 versus pulmonary edema. She was diuresed and overall clinical status has improved. There is clearly evidence that she had congestive heart failure at that time. Echocardiography has raise concern for mitral stenosis in the range of moderate to severe MS. She was proposed to undergo [id number] heart catheterization but she decided not to undergo any procedures and is here for follow-up. Clinically she appears to be stable and euvolemic. She is hypoxic and I have advised her that she should be using oxygen with ambulation indefinitely at nighttime because her continuous pulse ox machine has shown low saturations at nighttime with tachycardia. In terms of mitral stenosis, I have advised her to increase metoprolol to b.i.d. and use oxygen frequently. We will bring her back soon and reassess her. As heart rate improved so we will reassess her with echocardiography and if there is ongoing concern for mitral stenosis and will consider [id number] heart catheterization. She is agreeable for this plan. Thank you for allowing me to participate in the care of your patient. Please feel free to contact me if you have any questions. Medications: Changed From metoprolol succinate ER 25 mg PO DAILY To metoprolol succinate ER 25 mg PO BID 180 tabs 3RF Coding Level of Care Code Est Pt Level 5 (22824) Diagnoses Dyspnea on exertion R06.09 Acute and chronic respiratory failure with hypoxia J96.21
== END 2024-02-22 16:02 | disposition home or self-care (01) ==
PROVIDERS: PCP Physician Assistant; Visit Provider Internal Medicine Cardiovascular Disease
DX: J96.11 Chronic respiratory failure with hypoxia (principal); I73.00 Raynaud's syndrome without gangrene; I34.2 Nonrheumatic mitral (valve) stenosis
CPT/HCPCS: 99214

== ENCOUNTER 2024-03-21 14:18 | Outpatient (AMB) | payer MEDICARE, OTHER, SELFPAY ==
[2024-03-21 14:41] VITALS: BP 120/70; PULSE 88; BMI 32.3
--- NOTE | 2024-03-21 14:41 | A.OFFVIS_ITS ---
Vital Signs 03/21/24 14:41 Height 5 ft 3 in Weight 182 lb 1.629 oz BMI 32.3 BP 120/70 Blood Pressure Location Lt brachial Position Sitting Pulse 88 Pulse Source Pulse Oximeter Intake Visit Reasons: 1 mth per KM Intake Note: 1 mth f/up/ pt is doing fine. 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: No Accompanied by: Self / Same As Patient Allergies codeine Allergy (Severe, Verified 02/19/24 14:50) felt like going to propranolol Allergy (Intermediate, Verified 02/19/24 14:50) dizziness Seasonal Allergies Allergy (Intermediate, Verified 02/19/24 14:50) Sneezing, vertigo Medication List - Last Reconciled 03/21/24 by Cristofer Bermudez MD acetaminophen (Tylenol) 650 mg PO QID PRN albuterol sulfate 90 mcg/actuation 2 puffs inhalation Q6H PRN atorvastatin 40 mg PO DAILY furosemide 60 mg (1.5 x 40 mg) PO QAM 30 days hydrocortisone 1% (Anti-Itch (hydrocortisone)) 1 appl topical BID PRN 2 weeks levothyroxine 88 mcg PO DAILY meclizine (Dramamine (meclizine)) 25 mg PO BID PRN metoprolol succinate ER 25 mg PO BID naproxen sodium 220 mg PO Q12H PRN prednisone 10 mg PO DIRECTED tizanidine 2 mg PO BEDTIME PRN 14 days HPI Comments Details: 73-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 She has been experiencing shortness of breath for long time. She was a smoker from age [age] and smoke heavily. She had pulmonary function test done recently which reveals some concern for emphysema. She has been on inhalers without any change in her breathing. She is saying she is able to walk a block and go up a flight of stairs but after that she gets shortness of breath which limits her activity. She has no chest discomfort. She underwent echocardiography to rule out pulmonary hypertension and there was no evidence of pulmonary hypertension on that. There was small pericardial effusion noticed. She has Raynaud's and hypertension and has been taking hydrochlorothiazide and amlodipine with good control blood pressure as well as Raynaud. She has been following with GI and Rheumatology. 06/01/23: She returns for follow-up. Her blood pressure is elevated in the office 150/80. Also on April 10 she had blood pressure checked which was 160/90. She has been taking hydrochlorothiazide every other day. She had echocardiography performed she showing small pericardial effusion but no tamponade physiology. She has small pericardial effusion before in July 2022. She is denying any significant chest discomfort. She is saying her breathing has been better since she has been on prednisone. She is taking 5 mg daily. 02/22/24: She is here for follow-up. Recent admission to [facility] with shortness of breath and hypoxia where CT scan was concerning for bilateral ground-glass infiltrates concerning for interstitial lung disease versus CHF. She also has recent COVID-19 infection. In November she was at [facility] with COVID-19 and bradycardia and had permanent pacemaker placed. While she was at [facility] she was advised to undergo [id number] heart catheterization but she decided against it. She has seen pulmonology and her Lasix was increased from 20-60 mg but she has been mostly taking 40 mg at this point. She is saying her breathing is okay but she does get shortness of breath with exertion. She also has a continuous pulse ox machine and she has noted that her saturations are at times low in 70s but she also has Raynaud's. During her admission at [facility] echocardiography raise concern for mitral stenosis with moderate to severe MS. Overall she is stable. Denying any chest discomfort any other complaints. 03/21/24: She has had for follow-up. She continues to get shortness of breath with activities. She is saying that during ambulation such fall to 70s and then when she takes deep breaths the saturation improved 90s this is quite unusual for heart failure or valvular disease. She previously had [id number] heart catheterization when her filling pressures were normal. This was years ago though. She is denying any chest discomfort. She also is getting some episodes of coughing and wheezing in the morning. She sleeps quite flat in bed and has crest syndrome and probably gets bad acid reflux. Her heart rate is 88 with metoprolol 25 mg twice a day. COUNT INCLUDES THE [facility] Medical History (Updated 03/21/24 @ 15:16 by Cristofer Bermudez MD) Bifascicular block Supplemental oxygen dependent CREST (calcinosis, Raynaud's phenomenon, esophageal dysfunction, sclerodactyly, telangiectasia) Dyspnea on exertion Pericardial effusion Complete heart block Hypothyroid Enlarged thyroid Hypertension Multinodular thyroid Telangiectasia Dysphagia Surgical History Status post cardiac pacemaker procedure S/P cardiac cath S/P tooth extraction Hx of colonoscopy H/O breast biopsy Family History Father Heart disease Sister Ovarian cancer Brother Heart attack Stroke Mother Thyroid disease Brother Asthma Social History Household Members: Spouse Housing: House Do you presently have visiting nurse or other home services: Yes ([facility] ,PT) Alcohol intake: never Patient Tobacco Use Status: Former Tobacco user Tobacco use type: Cigarette Years Smoked: 20 +/- e-Cigarette/Vaping Use: Never Used Second Hand Smoke Exposure: Yes Advance Directives Date on File: 02/13/24 service: No Current occupational status: retired 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 Cognitive needs: No Hearing needs: No Vision needs: No Review of Systems Const Denies chills, Denies fatigue, Denies fever(s), Denies frequent falls, Denies weakness, Reports weight gain and Denies weight loss ENT Denies dizziness Card Denies chest pain, Denies leg edema, Denies lightheadedness, Denies palpitations, Denies dyspnea and Denies dyspnea on exertion Resp Reports cough, Denies dyspnea and Denies dyspnea on exertion GI Denies hematochezia Musc Denies abnormal gait, Denies muscle weakness, Denies numbness, Denies radiating pain into limb and Denies tingling Neuro Denies abnormal gait, Denies dizziness, Denies frequent falls, Denies numbness, Denies tingling and Denies weakness Endo Denies fatigue and Denies palpitations Physical Exam Vital Signs: Last Vital Signs Pulse 88 03/21/24 14:41 BP 120/70 03/21/24 14:41 BMI result Body Mass Index 32.3 GENERAL APPEARANCE: in no acute distress, pleasant. NECK: no carotid bruit, no jugular venous distention. SKIN: no suspicious lesions, warm and dry. HEART: apical mid diastolic murmur, regular rate and rhythm. LUNGS: clear to auscultation bilaterally. ABDOMEN: soft, nontender. EXTREMITIES: no edema. PERIPHERAL PULSES: equal. NEUROLOGIC: No gross deficits, AAO X 3 Assessment & Plan Assessment & Plan (1) Mitral stenosis: Code(s): I05.0 - Rheumatic mitral stenosis Category: Medical (2) S/P placement of cardiac pacemaker: Code(s): Z95.0 - Presence of cardiac pacemaker Category: Surgical (3) Dyspnea on exertion: Code(s): R06.09 - Other forms of dyspnea Category: Medical (4) CREST (calcinosis, Raynaud's phenomenon, esophageal dysfunction, sclerodactyly, telangiectasia): Code(s): M34.1 - CR(E)ST syndrome Category: Medical Plan [age] female with complex medical issues presenting for follow-up. She has CREST syndrome. Recent admission with respiratory issues and was thought to be heart failure. She was diuresed and went but went home supplemental oxygen she has been using frequently. With ambulation our saturations fall to 70s. She is saying that within a minute the saturation improve again. I am not sure whether her pulse ox is accurate as she has Raynaud's due to CREST syndrome. 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 I am starting her on a PPI because could be due to significant acid reflux is quite common with CREST. I have advised her to increase the metoprolol succinate 50 mg in the morning and 25 in the afternoon. Over the next week I want her to increase dose to 50 mg twice a day. Once she is on 50 mg twice a day we will repeat echocardiogram to reassess mitral gradient. I have told her that if there is ongoing concern about mitral stenosis severity then we may have to do left and right heart catheterization. Will decide in the coming weeks. Thank you for allowing me to participate in the care of your patient. Please feel free to contact me if you have any questions. Orders: Orders CA echo transthoracic complete Today I05.0 - Rheumatic mitral stenosis Medications: New omeprazole 40 mg PO DAILY 60 caps 3RF M34.1 - CR(E)ST syndrome Coding Level of Care Code Est Pt Level 5 (42527) Diagnoses Mitral stenosis I05.0 S/P placement of cardiac pacemaker Z95.0 Dyspnea on exertion R06.09 CREST (calcinosis, Raynaud's phenomenon, esophageal dysfunction, sclerodactyly, telangiectasia) M34.1
== END 2024-03-21 15:29 | disposition home or self-care (01) ==
PROVIDERS: PCP Internal Medicine; Visit Provider Internal Medicine Cardiovascular Disease
DX: I05.0 Rheumatic mitral stenosis (principal); Z95.0 Presence of cardiac pacemaker; R06.09 Other forms of dyspnea; M34.1 CR(E)ST syndrome
CPT/HCPCS: 99214

== ENCOUNTER → 2024-03-21 14:18 | Outpatient (BNVA) | payer MEDICARE, OTHER, SELFPAY | PROVIDERS: PCP Internal Medicine; Visit Provider Internal Medicine Cardiovascular Disease | DX: I05.0 Rheumatic mitral stenosis (principal); M34.1 CR(E)ST syndrome; R06.09 Other forms of dyspnea; Z95.0 Presence of cardiac pacemaker | CPT/HCPCS: 99212 ==

== ENCOUNTER 2024-03-24 09:32 | Outpatient (REF) | payer MEDICARE, OTHER, SELFPAY ==
--- NOTE | ~2024-03-24 | MM_ITS ---
EXAMINATION: MM SCREENING DIGITAL BREAST TOMOSYNTHESIS, BILATERAL CLINICAL INFORMATION: Screening. Asymptomatic. COMPARISON: Mammography: This study is compared with prior exams dating back to 2018. TECHNIQUE: Digital breast tomosynthesis is performed in both the craniocaudal and mediolateral oblique views along with computer-aided detection (CAD). Synthesized 2D images are generated from the tomosynthesis. FINDINGS: There are scattered areas of fibroglandular density (ACR BI-RADS breast composition Category b). There are no significant masses, abnormal calcifications, or other abnormalities. There is a tissue marker in the right breast from prior benign percutaneous biopsy. Bilateral benign calcifications are present. There is a pacemaker in superior aspect of the left breast. MM/MM tomosynthesis screening BI IMPRESSION: No mammographic evidence of malignancy. ASSESSMENT: BI-RADS BI-RADS 2 - Benign Findings RECOMMENDATION: Routine annual mammography screening. 1 year F/U This examination should not preclude the clinical evaluation of a suspicious palpable abnormality. This patient's information was entered into a reminder system with a target due date for their next mammogram.
== END 2024-03-24 09:33 | disposition home or self-care (01) ==
LOC: HO.MAMMO 09:32
PROVIDERS: PCP Internal Medicine; Visit Provider Internal Medicine
DX: Z12.31 Encounter for screening mammogram for malignant neoplasm of breast (principal)
CPT/HCPCS: 77063; 77067

== ENCOUNTER → 2024-03-24 10:00 | Outpatient (BNV) | payer MEDICARE, OTHER, SELFPAY | PROVIDERS: PCP Internal Medicine; Visit Provider Radiology Diagnostic Radiology | DX: Z12.31 Encounter for screening mammogram for malignant neoplasm of breast (principal) | CPT/HCPCS: 77063; 77067 ==

== ENCOUNTER 2024-03-25 11:16 | Outpatient (AMB) | payer MEDICARE, OTHER, SELFPAY ==
--- NOTE | 2024-03-25 11:17 | MHC.OFFVIS ---
Vital Signs 03/25/24 11:18 Height 5 ft 3 in Weight 180 lb BMI 31.9 BP 140/67 H Blood Pressure Location Lt brachial Position Sitting Pulse 89 Pulse Source Doppler Pulse Oximetry (%) 96 Oxygen Delivery Method Nasal Cannula Oxygen Flow Rate 2 Intake Visit Reasons: HUDSON Allergies codeine Allergy (Severe, Verified 02/19/24 14:50) felt like going to propranolol Allergy (Intermediate, Verified 02/19/24 14:50) dizziness Seasonal Allergies Allergy (Intermediate, Verified 02/19/24 14:50) Sneezing, vertigo HPI HPI HUDSON: Details: 73-year-old lady, former 40 pack smoker, quit 30 years prior, with underlying CREST under Rheumatology care, now followed for pulmonary component of dyspnea on exertion and possible crest associated ILD. She continues on prednisone 10 mg daily and Lasix 60 mg daily. She does complain of slow weight gain. Patient continues to use supplemental oxygen at 2 L continuous flow. She continues to undergo cardiac workup. [facility] Medical History (Updated 03/25/24 @ 11:48 by Pancho Monson MD) Bifascicular block Supplemental oxygen dependent CREST (calcinosis, Raynaud's phenomenon, esophageal dysfunction, sclerodactyly, telangiectasia) Dyspnea on exertion Pericardial effusion Complete heart block Hypothyroid Enlarged thyroid Hypertension Multinodular thyroid Telangiectasia Dysphagia Surgical History Status post cardiac pacemaker procedure S/P cardiac cath S/P tooth extraction Hx of colonoscopy H/O breast biopsy Family History Father Heart disease Sister Ovarian cancer Brother Heart attack Stroke Mother Thyroid disease Brother Asthma Social History Household Members: Spouse Housing: House Do you presently have visiting nurse or other home services: Yes ([facility] ,[place]) Alcohol intake: never Patient Tobacco Use Status: Former Tobacco user Tobacco use type: Cigarette Years Smoked: 20 +/- e-Cigarette/Vaping Use: Never Used Second Hand Smoke Exposure: Yes Advance Directives Date on File: 02/13/24 service: No Current occupational status: retired 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 Cognitive needs: No Hearing needs: No Vision needs: No Review of Systems Const Denies daytime sleepiness, Denies excessive sweating, Denies fatigue, Denies fever(s), Denies lethargy, Denies malaise, Denies night sweats, Denies snoring and Denies weight loss Eyes Denies blurry vision and Denies itchy eyes ENT Denies nasal congestion, Denies post nasal drip, Denies sinus pain, Denies sinus pressure and Denies other ( Thrush) Card Denies chest pain, Denies pedal edema, Denies dyspnea, Reports dyspnea on exertion, Denies orthopnea and Denies paroxysmal nocturnal dyspnea Resp Denies cough, Denies hemoptysis, Denies excessive phlegm production, Denies dyspnea, Reports dyspnea on exertion, Denies snoring and Denies wheezing GI Denies abdominal pain and Denies heartburn Musc Denies myalgias, Denies arthralgias and Denies joint swelling Skin/Breast Denies rash Neuro Denies memory loss and Denies seizure-like activity Psych Denies abnormal sleep pattern, Denies anxiety and Denies memory loss Endo Denies excessive sweating, Denies fatigue and Denies heat intolerance Kenneth/Lymph Denies easy bruising Aller/Immun Denies itchy eyes, Denies seasonal rhinorrhea and Denies wheezing Physical Exam Vital Signs: Last Vital Signs Pulse 89 03/25/24 11:18 BP 140/67 H 03/25/24 11:18 Pulse Ox 96 03/25/24 11:18 Oxygen Delivery Method Nasal Cannula 03/25/24 11:18 Oxygen Flow Rate 2 03/25/24 11:18 BMI result Body Mass Index 31.9 Const General: no acute distress and alert Nutritional Appearance: not obese Orientation/consciousness: Other orientation findings ( oriented) HEENT Head: Yes atraumatic Eyes General: appearance normal, both eyes and all related structures Sclerae: sclerae normal EOM: EOMs intact bilaterally Neck Neck: Yes supple Lymphatic: no lymphadenopathy noted Resp Effort & Inspection: normal respiratory effort and no use of accessory muscles Auscultation: clear to auscultation bilaterally Cardio Rate: regular rate Rhythm: regular rhythm Heart sounds: no gallops, no murmurs and no rubs Skin General skin exam: other ( warm) Extrem General: No clubbing, No cyanosis and No edema Assessment & Plan Assessment & Plan (1) ILD (interstitial lung disease): Code(s): J84.9 - Interstitial pulmonary disease, unspecified Category: Medical (2) Dyspnea on exertion: Code(s): R06.09 - Other forms of dyspnea Category: Medical (3) CREST (calcinosis, Raynaud's phenomenon, esophageal dysfunction, sclerodactyly, telangiectasia): Code(s): M34.1 - CR(E)ST syndrome Category: Medical (4) Supplemental oxygen dependent: Code(s): Z99.81 - Dependence on supplemental oxygen Category: Medical Plan May have a LD component will obtain CT chest. Will proceed with cardiopulmonary exercise test to evaluate limiting factor to her exercise tolerance. Will refer to Pulmonary Rehab. Will continue current regimen Lasix 60mg daily prednisone 10 mg daily. Orders: Orders CT chest wo IV con Today J84.9 - Interstitial pulmonary disease, unspecified Pulmonary Rehab Today J84.9 - Interstitial pulmonary disease, unspecified CA cardiopulmonary stress test Today R06.09 - Other forms of dyspnea Coding Level of Care Code Est Pt Level 4 (10408) Complex EM visit Add On G2211 Diagnoses ILD (interstitial lung disease) J84.9 Dyspnea on exertion R06.09 CREST (calcinosis, Raynaud's phenomenon, esophageal dysfunction, sclerodactyly, telangiectasia) M34.1 Supplemental oxygen dependent Z99.81
[2024-03-25 11:18] VITALS: BP 140/67; PULSE 89; O2SAT 96; BMI 31.9
== END 2024-03-25 11:49 | disposition home or self-care (01) ==
PROVIDERS: PCP Physician Assistant; Visit Provider Internal Medicine Pulmonary Disease
DX: J84.9 Interstitial pulmonary disease, unspecified (principal); R06.09 Other forms of dyspnea; M34.1 CR(E)ST syndrome; Z99.81 Dependence on supplemental oxygen
CPT/HCPCS: 99214; G2211

== ENCOUNTER → 2024-03-25 11:16 | Outpatient (BNVA) | payer MEDICARE, OTHER, SELFPAY | PROVIDERS: PCP Physician Assistant; Visit Provider Internal Medicine Pulmonary Disease | DX: J84.9 Interstitial pulmonary disease, unspecified (principal); M34.1 CR(E)ST syndrome; R06.09 Other forms of dyspnea; Z99.81 Dependence on supplemental oxygen | CPT/HCPCS: 99212 ==

== ENCOUNTER 2024-03-31 09:46 | Outpatient (AMB) | payer MEDICARE, OTHER, SELFPAY ==
--- NOTE | 2024-03-31 10:00 | A.OFFVIS_ITS ---
Vital Signs 03/31/24 10:03 Height 5 ft 3 in Weight 181 lb 3.52 oz BMI 32.1 BP 134/82 Blood Pressure Location Rt brachial Position Sitting Pulse 94 Pulse Source Pulse Oximeter Pulse Oximetry (%) 97 Oxygen Delivery Method Room Air Intake Visit Reasons: crest/cm Intake Note: Patient presents for crest. Allergies codeine Allergy (Severe, Verified 03/31/24 10:03) felt like going to propranolol Allergy (Intermediate, Verified 03/31/24 10:03) dizziness Seasonal Allergies Allergy (Intermediate, Verified 03/31/24 10:03) Sneezing, vertigo Medication List - Last Reconciled 03/31/24 by Mariah Burroughs MD acetaminophen (Tylenol) 650 mg PO QID PRN albuterol sulfate 90 mcg/actuation 2 puffs inhalation Q6H PRN atorvastatin 40 mg PO DAILY furosemide 60 mg (1.5 x 40 mg) PO QAM 30 days hydrocortisone 1% (Anti-Itch (hydrocortisone)) 1 appl topical BID PRN 2 weeks levothyroxine 88 mcg PO DAILY meclizine (Dramamine (meclizine)) 25 mg PO BID PRN metoprolol succinate ER 25 mg PO BID naproxen sodium 220 mg PO Q12H PRN omeprazole 40 mg PO DAILY prednisone 10 mg PO DAILY tizanidine 2 mg PO BEDTIME PRN 14 days HPI Comments Details: This is a 73-year-old female with crest who presents for follow-up. She was last seen here at Rheumatology more than a year ago. She Was diagnosed in 2021. Patient had a couple of admissions this year with shortness of breath. CT scan of the chest showed diffuse ground-glass opacities. She gets short of breath with activity. She carries oxygen with her to use as needed. She has acid reflux and uses omeprazole regularly. Raynaud's is not a problem in the summer time [facility] Medical History Bifascicular block Supplemental oxygen dependent CREST (calcinosis, Raynaud's phenomenon, esophageal dysfunction, sclerodactyly, telangiectasia) Dyspnea on exertion Pericardial effusion Complete heart block Hypothyroid Enlarged thyroid Hypertension Multinodular thyroid Telangiectasia Dysphagia Surgical History Status post cardiac pacemaker procedure S/P cardiac cath S/P tooth extraction Hx of colonoscopy H/O breast biopsy Family History Father Heart disease Sister Ovarian cancer Brother Heart attack Stroke Mother Thyroid disease Brother Asthma Social History Household Members: Spouse Housing: House Do you presently have visiting nurse or other home services: Yes ([facility] ,[place]) Alcohol intake: never Patient Tobacco Use Status: Former Tobacco user Tobacco use type: Cigarette Years Smoked: 20 +/- e-Cigarette/Vaping Use: Never Used Second Hand Smoke Exposure: Yes Advance Directives Date on File: 02/13/24 service: No Current occupational status: retired 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 Cognitive needs: No Hearing needs: No Vision needs: No Review of Systems Const Denies fever(s), Reports weight gain and Denies weight loss ENT Reports dry mouth Card Reports dyspnea on exertion Resp Reports dyspnea on exertion GI Reports heartburn Musc Denies arthralgias and Denies joint swelling Physical Exam Vital Signs: Last Vital Signs Pulse 94 03/31/24 10:03 BP 134/82 03/31/24 10:03 Pulse Ox 97 03/31/24 10:03 Oxygen Delivery Method Room Air 03/31/24 10:03 BMI result Body Mass Index 32.1 Const General: cooperative, healthy appearing and comfortable Nutritional Appearance: obese Orientation/consciousness: patient oriented x3 Limitations: no limitations HEENT Other: Reduced mouth opening Head: Yes normocephalic and Yes atraumatic Mouth: moist mucous membranes Resp Effort & Inspection: normal respiratory effort and able to speak in complete sentences Auscultation: clear to auscultation bilaterally Cardio Rate: regular rate Rhythm: regular rhythm Skin Other: Numerous telangiectasias Neuro General: patient oriented x3 Extrem Other: Mild sclerodactyly No active synovitis Left ring finger with few dilated loops Mildly cool fingertips Assessment & Plan Assessment & Plan (1) CREST (calcinosis, Raynaud's phenomenon, esophageal dysfunction, sclerodactyly, telangiectasia): Comment: dx 2021 (Raynaud's, sclerodactyly, telangiectasias, abnormal nailfold capillaroscopy, questionable esophageal dysmotility, +++ centromere) Code(s): M34.1 - CR(E)ST syndrome Category: Medical Plan: 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 This is her 1st visit with me. It seems that patient's main complaint is her shortness of breath with exertion. DDx pulmonary arterial hypertension versus interstitial edema versus mitral stenosis, versus ILD. I think pulmonary arterial hypertension should be ruled out, given numerous telangiectasias and association with limited scleroderma. I discussed with patient's chief privacy officer Dr. Bermudez. Another 2D echo is ordered as well as stress test. He will have a low threshold for left and right heart catheterization to better evaluate her mitral valve as well as pulmonary arterial hypertension Interstitial lung disease remains a possibility, patient's CT scans were done when she had acute respiratory distress and it showed diffuse ground-glass opacities which may be seen in infectious etiologies. It does not look like she had a CT scan when she was at her baseline. Another CT chest was ordered by Dr. Monson. Her Raynaud's has not been a problem recently. Amlodipine can be added again in the colder winter months, if it causes significant edema other options such as fluoxetine may be considered Advised patient to sleep more elevated continue her omeprazole Check further labs today Follow-up in about 2 months Plan I spent 49 minutes reviewing patient's chart, evaluating patient, ordering diagnostic workup, counseling patient and documenting in the chart Orders: Orders Complete Blood Count Auto Diff Today M34.1 - CR(E)ST syndrome Comprehensive Met. Panel Today M34.1 - CR(E)ST syndrome C Reactive Protein Today M34.1 - CR(E)ST syndrome Erythrocyte Sedimentation Rate Today M34.1 - CR(E)ST syndrome Immunofixation Pnl, Serum Today M34.1 - CR(E)ST syndrome Protein Electrophoresis, Serum Today M34.1 - CR(E)ST syndrome T Spot TB Today Z11.7 - Encounter for testing for latent tuberculosis infection Hepatitis A,B,C Profile Today Z11.59 - Encounter for screening for other viral diseases Creatine Kinase Total Today M34.1 - CR(E)ST syndrome Coding Level of Care Code Est Pt Level 5 (56510) Complex EM visit Add On G2211 Diagnoses CREST (calcinosis, Raynaud's phenomenon, esophageal dysfunction, sclerodactyly, telangiectasia) M34.1
[2024-03-31 10:03] VITALS: BP 134/82; PULSE 94; O2SAT 97; BMI 32.1
== END 2024-03-31 10:50 | disposition home or self-care (01) ==
PROVIDERS: PCP Physician Assistant; Visit Provider Student in an Organized Health Care Education/Training Program
DX: M34.1 CR(E)ST syndrome (principal)
CPT/HCPCS: 99215; G2211

== ENCOUNTER 2024-03-31 09:46 | Outpatient (REF) | payer MEDICARE, OTHER, SELFPAY ==
[2024-03-31 11:13] LABS: MANUAL DIFF FLAG NO
[2024-03-31 11:22] LABS: Basophils Percent Auto 0.3 % (0-2); Eosinophils Absolute Auto 0.2 X10*3/uL (0.0-0.4); Eosinophils Percent Auto 1.1 % (0-4); Hematocrit 31.9 % (37.0-47.0); Imm Gran Pct Auto 0.7 % (0.0-0.4); Lymphocytes Absolute Auto 1.2 X10*3/uL (1.2-4.9); Lymphocytes Percent Auto 9.2 % (20-40); Mean Corpuscular HGB Conc 31.3 g/dl (31.0-35.0); Mean Corpuscular Hemoglobin 30.5 pg (27.0-33.0); Mean Corpuscular Volume 97.3 fL (80.0-98.0); Mean Platelet Volume 8.7 fL (9.4-12.3); Monocytes Absolute Auto 0.8 X10*3/uL (0.1-1.2); Monocytes Percent Auto 5.7 % (2-11); Neutrophils Absolute Auto 11.2 x10*3/uL (2.0-8.3); Platelet Count 323 X10*3/uL (160-400); Red Blood Count 3.28 X10*6/uL (4.20-5.50); Red Cell Distribution Width 15.5 % (11.0-16.0); White Blood Count 13.5 X10*3/uL (4.8-10.8)
[2024-03-31 11:55] LABS: Alanine Aminotransferase 21 U/L (0-31); Albumin Level 4.1 g/dL (3.5-5.0); Alkaline Phosphatase 58 U/L (39-117); Anion Gap 13 (12-20); Aspartate Amino Transferase 19 U/L (5-31); Bilirubin Total 0.8 mg/dL (0.0-1.0); Blood Urea Nitrogen 29 mg/dL (9-16); C Reactive Protein 0.21 mg/dL (< or = 0.50); Carbon Dioxide 26 mmol/L (22-29); Chloride 111 mmol/L (96-108); Estimated Glomerular Filt Rate 58; Glucose Random 146 mg/dL (60-115); Potassium 3.4 mmol/L (3.3-5.1); Sodium 147 mmol/L (135-145); Total Protein 6.2 g/dL (6.5-8.0)
[2024-03-31 12:05] LABS: Erythrocyte Sedimentation Rate 16 MM/HR (0-20)
[2024-03-31 12:17] LABS: HBS Num1 0.37 mIU/mL (0-7.99); HBc Num1 0.02 S/CO (0.00-0.79); HBsAGNum1 0.23 S/CO (0.00-0.99); Hepatitis B Core Antibody Nonreactive (Nonreactive); Hepatitis B Surface Antigen Negative (Negative); ~HepC Num1 0.05 S/CO (0.00-0.79); ~Hepatitis A Antibody IgM Nonreactive (Nonreactive); ~Hepatitis B Surface Antibody NONREACTIVE (Nonreactive); ~Hepatitis C Antibody Nonreactive (Nonreactive)
[2024-04-01 22:34] LABS: Prot Elec - Albumin 3.8 g/dL (3.8-4.8); Prot Elec - Alpha1 0.4 g/dL (0.2-0.3); Prot Elec - Alpha2 0.7 g/dL (0.5-0.9); Prot Elec - Beta 1 0.5 g/dL (0.4-0.6); Prot Elec - Beta 2 0.4 g/dL (0.2-0.5); Prot Elec - Gamma 0.4 g/dL (0.8-1.7); Prot Elec - Total Protein 6.1 g/dL (6.1-8.1)
[2024-04-03 09:49] LABS: TS Negative Control Passed; TS Panel A 3; TS Panel B 0; TS Positive Control Passed; TSpotTB Negative (Negative)
[2024-04-04 15:44] LABS: IgA 184 mg/dL (70-320); IgG 354 mg/dL (600-1540); IgM 138 mg/dL (50-300)
== END 2024-03-31 09:47 | disposition home or self-care (01) ==
LOC: HO.LAB 09:46
PROVIDERS: PCP Internal Medicine; Visit Provider Student in an Organized Health Care Education/Training Program
DX: Z11.7 Encounter for testing for latent tuberculosis infection (principal); Z11.59 Encounter for screening for other viral diseases; M34.1 CR(E)ST syndrome; Z72.89 Other problems related to lifestyle
CPT/HCPCS: 36415; 80053; 82550; 82784; 84165; 85025; 85652; 86140; 86334; 86481; 86704; 86706; 86709; 86803; 87340; 99212

== ENCOUNTER → 2024-04-05 09:46 | Outpatient (REF) | payer MEDICARE, OTHER, SELFPAY | LOC: HO.SL 09:46 | PROVIDERS: Visit Provider Internal Medicine Pulmonary Disease | DX: G47.33 Obstructive sleep apnea (adult) (pediatric) (principal) | CPT/HCPCS: 95806 ==

== ENCOUNTER → 2024-04-05 10:03 | Outpatient (BNV) | payer MEDICARE, OTHER, SELFPAY | PROVIDERS: Visit Provider Internal Medicine | DX: G47.33 Obstructive sleep apnea (adult) (pediatric) (principal) | CPT/HCPCS: 95806 ==

== ENCOUNTER → 2024-04-08 13:42 | Outpatient (REF) | payer MEDICARE, OTHER, SELFPAY ==
--- NOTE | 2024-04-08 13:45 | CA_ITS ---
Transthoracic Echocardiogram Amended Patient (Last, First, Middle): Rajani Hart, Gender: Female Date of : 1950 Age: 73 Procedure Date: 04/08/2024 Procedure Type: Transthoracic Echocardiogram Location: OP Height: 160.02 cm Weight: 80.74 kg BSA: 1.84 m2 Heart Rate: 51 bpm BP: 142 / 65 mmHg Heat Transfer Technician: LUX Romero MD: Cristofer Bermudez MD Flower Shop Manager: Rex Winkler MD Symptoms: I05.0 - Rheumatic mitral stenosis Study Quality: Fair ECG Rhythm: Bradycardia Conclusions: - 1. Hyperdynamic LV EF of greater than 70% with impaired relaxation filling pattern, filling pressures can not be calculated 2. Calcific mitral stenosis of at least moderate severity 3. Normal RV systolic pressure 4. No gross pericardial effusion Findings Left Ventricle Normal left ventricular cavity size. There is mildly increased left ventricular wall thickness. The left ventricular systolic function is hyperdynamic. The visually estimated ejection fraction is >70%. Spectral Doppler is indicative of an impaired relaxation filling pattern. Peak GLS is 17.3%, borderline low. Right Ventricle Normal right ventricular cavity size and systolic function. Atria The left atrium is normal in size. There is no evidence of interatrial shunt. The right atrium is likely dilated. Aortic Valve There is mild calcification of the aortic valve. The peak aortic gradient is 9 mmHg.The mean gradient is 5 mmHg. There is no aortic valve regurgitation. Mitral Valve There is mild anterior and severe posterior mitral leaflet thickening. The posterior mitral leaflet is immobile. There is moderate mitral annular calcification. There is no mitral valve regurgitation. There is moderate mitral valve stenosis. The calculated mitral valve area by pressure half time is 2.02 cm2. mitral valve area calculated by continuity equation 1.56 cm2 with mean gradient of 9-10 mm Hg most suggestive of moderate aortic stenosis. Pulmonic Valve The pulmonic valve is likely normal. There is trace pulmonic valve regurgitation. Tricuspid Valve Normal tricuspid valve structure. There is mild tricuspid valve regurgitation. The right ventricular systolic pressure is normal. The right ventricular systolic pressure is 23 mmHg. Normal right atrial pressure. There is no evidence of pulmonary hypertension. Great Vessels The pulmonary artery was not well visualized. There is no dilatation of the ascending aorta measuring 3.10 cm. Venous The inferior vena cava is normal in size and collapses greater than 50% with inspiration. Pericardium/Pleural There is no evidence of pericardial effusion. Measurements 2D Linear Measurements IVSd: 1.17 0.6-0.9/0.6-1.0 cm LVIDd: 4.41 3.9-5.3/4.2-5.9 cm LVIDd Index: 2.40 2.4-3.2/2.2-3.1 cm/m2 LVIDs: 2.50 2.0-3.6 cm LVPWd: 1.21 0.7-1.1 cm LA Diam: 3.20 2.7-3.8/3.0-4.0 cm LAIDs Index: 1.74 1.5-2.3 cm/m2 LV Mass: 236.37 67-162/88-224 g LV Mass Index: 128.46 43-95/49-115 g/m2 LVOT Diam: 2.00 3.0+(-)1.3 cm 2D Volumes LA Vol: 28.40 2D Systolic Function EF 4C: 73.50 >55% EF 2C: 70.40 >55% EF BiP: 72.40 >55% Mitral Valve MV VTI: 0.42 MV Pk Irwin: 2.07 MV Mn Irwin: 1.38 MV Pk Grad: 17.00 MV Mn Grad: 9.00 MV Pk E: 1.46 MV PK A: 1.95 MV Decel Time: 372.00 E/A: 0.70 E'Lateral: 4.57 E'Medial: 2.94 E/E' Med: 49.70 E/E' Lat: 31.90 PHT: 109.00 MVA PHT: 2.02 MVA Continuity: 1.59 Decel Pennington: 3.93 Aortic Valve AoV Pk Irwin: 1.53 AoV Mn Irwin: 1.10 AoV VTI: 0.32 AoV Pk Grad: 9.00 Aov Mn Grad: 5.00 VASILIY Cont.VTI: 2.06 LVOT LVOT Pk Irwin: 1.01 LVOT Mn Irwin: 0.71 LVOT VTI: 0.21 LVOT Pk Grad: 4.00 LVOT Mn Grad: 2.00 LVOT Diam: 2.00 LVOT Area: 3.14 Diastolic Function MV Pk E: 1.46 MV Pk A: 1.95 E/A: 0.70 E'Medial: 2.94 E/E' Med: 49.70 E' Laterial: 4.57 E/E' Lat: 31.90 Right Ventricle TAPSE (mm): 21.20 TVS' Irwin: 10.20 Tricuspid Valve TR Pk Irwin: 2.21 TR Pk Grad: 20.00 RA Press: 3.00 RVSP: 23.00 Great Vessels Aorta Sinus of Valsalva: 3.30 2.0-3.5 cm Ao Asc: 3.10 2.1-3.4 cm Pulmonary Valve PV Pk Irwin: 0.98 Peak PV Grad: 4.00 Updated in Other Vendor System with Status of Final Rex Winkler MD electronically signed on 04/09/2024 2:14:31 PM with status of Final
== END ==
LOC: HO.CARD 13:42
PROVIDERS: PCP Internal Medicine; Visit Provider Internal Medicine Cardiovascular Disease
DX: I05.0 Rheumatic mitral stenosis (principal)
CPT/HCPCS: 93306; 93356

== ENCOUNTER → 2024-04-08 13:45 | Outpatient (BNV) | payer MEDICARE, OTHER, SELFPAY | PROVIDERS: PCP Internal Medicine; Visit Provider Internal Medicine Cardiovascular Disease | DX: I08.3 Combined rheumatic disorders of mitral, aortic and tricuspid valves (principal); R93.1 Abnormal findings on diagnostic imaging of heart and coronary circulation | CPT/HCPCS: 93306; 93356 ==

== ENCOUNTER 2024-04-13 14:53 | Outpatient (AMB) | payer MEDICARE, OTHER, SELFPAY ==
[2024-04-13 14:58] VITALS: BP 136/74; PULSE 92; O2SAT 97; BMI 32.1
--- NOTE | 2024-04-13 14:58 | A.OFFPC_ITS ---
Vital Signs 04/13/24 14:58 Height 5 ft 3 in Weight 181 lb BMI 32.1 BP 136/74 Blood Pressure Location Lt brachial Position Sitting Pulse 92 Pulse Source Pulse Oximeter Pulse Oximetry (%) 97 Oxygen Delivery Method Nasal Cannula Oxygen Flow Rate 2 Intake Visit Reasons: Back pain Local Flatbed Driver Required: No Allergies codeine Allergy (Severe, Verified 04/13/24 15:41) felt like going to propranolol Allergy (Intermediate, Verified 04/13/24 15:41) dizziness Seasonal Allergies Allergy (Intermediate, Verified 04/13/24 15:41) Sneezing, vertigo Medication List - Last Reconciled 04/13/24 by Hank Ochoa MD acetaminophen (Tylenol) 650 mg PO QID PRN albuterol sulfate 90 mcg/actuation 2 puffs inhalation Q6H PRN atorvastatin 40 mg PO DAILY cyclobenzaprine 10 mg PO BEDTIME furosemide 60 mg (1.5 x 40 mg) PO QAM 30 days hydrocortisone 1% (Anti-Itch (hydrocortisone)) 1 appl topical BID PRN 2 weeks levothyroxine 88 mcg PO DAILY meclizine (Dramamine (meclizine)) 25 mg PO BID PRN meloxicam 15 mg PO DAILY metoprolol succinate ER 25 mg PO BID omeprazole 40 mg PO DAILY prednisone 10 mg PO DAILY tizanidine 2 mg PO BEDTIME PRN 14 days Tobacco use date assessed: 02/18/24 Fall risk assessment: No Falls in past year Last assessed Fall Risk: 04/13/24 Dental Screening Dental Screen Date: 10/22/23 HPI Back pain HPI Details 73-year-old female presents to the [facility] for a sick visit. Patient presents to the office with complaints of low back pain. Symptoms started about 4 months ago and slowly worsening. She describes it as spasm around the hips, especially the left hip radiating into the leg. Symptoms are worse when she changes posture from a sitting to a standing position. She is also concerned, as she is scheduled for a stress test later this week. Walking without any external aids. Able to function and do activities of daily living. No urinary incontinence. [facility] Medical History Bifascicular block Supplemental oxygen dependent CREST (calcinosis, Raynaud's phenomenon, esophageal dysfunction, sclerodactyly, telangiectasia) Dyspnea on exertion Pericardial effusion Complete heart block Hypothyroid Enlarged thyroid Hypertension Multinodular thyroid Telangiectasia Dysphagia Surgical History Status post cardiac pacemaker procedure S/P cardiac cath S/P tooth extraction Hx of colonoscopy H/O breast biopsy Family History Father Heart disease Sister Ovarian cancer Brother Heart attack Stroke Mother Thyroid disease Brother Asthma Social History Household Members: Spouse Housing: House Do you presently have visiting nurse or other home services: Yes ([facility] ,PT) Alcohol intake: never Patient Tobacco Use Status: Former Tobacco user Tobacco use type: Cigarette Years Smoked: 20 +/- e-Cigarette/Vaping Use: Never Used Second Hand Smoke Exposure: Yes Advance Directives Date on File: 02/13/24 service: No Current occupational status: retired 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 How often do you have a drink containing alcohol?: Never 3. How often do you have six or more drinks on one occasion?: Never Total Score: 0 DEANN-7 AMB Questionnaire DEANN-7 Date DEANN - 7 assessed: 10/22/23 Source: Developed by Drs. Carson Quiles, Malinda Morales, Tang Awad and colleagues, with an educational kevin from [employer]. Physical exam (Primary Care) Vital Signs: Last Vital Signs Pulse 92 04/13/24 14:58 BP 136/74 04/13/24 14:58 Pulse Ox 97 04/13/24 14:58 Oxygen Delivery Method Nasal Cannula 04/13/24 14:58 Oxygen Flow Rate 2 04/13/24 14:58 BMI result Body Mass Index 32.1 Tobacco/Smoking Status: Tobacco use Status Tobacco use date assessed 02/18/24 04/13/24 14:59 Patient Tobacco Use Status Former Tobacco user 04/13/24 14:59 Tobacco use type Cigarette 04/13/24 14:59 e-Cigarette/Vaping Use Never Used 04/13/24 14:59 Thrive Assessment: Date of Thrive Assessment Date Thrive assessed 02/14/24 04/13/24 14:59 Back/Spine/Pelvis Other: Back: No spinal tenderness. Straight leg raising test is negative. Left knee: Hyper reflexia. Assessment and Plan Assessment & Plan (1) Low back pain: Code(s): M54.50 - Low back pain, unspecified Plan: Symptoms are mostly muscular in etiology. Continue meloxicam and cyclob enzaprine started. A note for the vendor specialist was sent that she may not be able to do the stress test that is scheduled for later this week. Coding Level of Care Code Est Pt Level 3 (94595) Complex EM visit Add On G2211 Diagnoses Low back pain M54.50
== END 2024-04-13 16:40 | disposition home or self-care (01) ==
PROVIDERS: PCP Internal Medicine; Visit Provider Internal Medicine
DX: M54.50 Low back pain, unspecified (principal)
CPT/HCPCS: 99213; G2211

== ENCOUNTER 2024-04-15 14:50 | Outpatient (REF) | payer MEDICARE, OTHER, SELFPAY ==
--- NOTE | ~2024-04-15 | CT_ITS ---
EXAMINATION: CT CHEST WITHOUT CONTRAST CLINICAL INFORMATION: Interstitial pulmonary disease. COMPARISON: Prior CT examinations of the chest dated 02/12/2024 and 07/11/2022. TECHNIQUE: Multidetector volumetric CT imaging of the chest was done. Axial MIP volume rendering provided. Sagittal and coronal reformatted images were obtained. This CT examination was performed using dose optimization techniques as appropriate, variously including the following: *Automated exposure control *Adjustment of mA and/or kV according to patient size (this includes techniques or standardized protocols for targeted exams where dose is matched to indication/reason for exam; i.e. extremities or head) *Use of iterative reconstruction technique DLP: 143 mGy-cm FINDINGS: ACQUISITION CONSULTANT: The lungs are symmetrically well-expanded and grossly clear. A left subclavian pacemaker device is noted. LUNGS: There are moderate centrilobular emphysematous changes. There is mild bibasilar increase in peripheral interlobular septal markings. No noncalcified nodule, mass, infiltrate or groundglass opacity is seen. There is a small benign, calcified granuloma within the superior segment of the right lower lobe (8:84). Mild biapical pleural and parenchymal thickening is seen. There is mild generalized small airway thickening. The central airways appear patent. MEDIASTINUM: A 1.5 cm right thyroid lobe nodule is seen (7:5), corresponding with the thyroid ultrasound findings dated 08/04/2022. There are shotty, nonpathologically enlarged mediastinal lymph nodes. No sizable mediastinal or hilar lymphadenopathy is seen. There is moderate atherosclerotic calcification of the great vessel origins and thoracic aorta. No thoracic aortic aneurysm is seen. CORONARY ARTERY CALCIFICATION: Marked. There are calcifications of the mitral and aortic annuli. PLEURA: There are very small bilateral pleural effusions. There is a very small pericardial effusion. There is mild pleural thickening at the bilateral major fissures and the accessory fissure. No pleural mass is seen. AXILLA: No lymphadenopathy. A left subclavian pacemaker device is noted. UPPER ABDOMEN: Unremarkable. OSSEOUS STRUCTURES: There is multi-level thoracic spondylosis. No acute or aggressive osseous finding is noted. CT/CT chest wo IV con IMPRESSION: 1. Moderate centrilobular emphysematous change is seen, and there is mild chronic interstitial lung disease without honeycombing, most likely usual interstitial pneumonia (UIP). The appearance is relatively stable from 02/12/2024. 2. There is mild generalized small airway thickening, which can be associated with acute bronchiolitis or reactive airways disease. 3. No sizable mediastinal or hilar lymphadenopathy is seen. 4. There are marked coronary artery atherosclerotic calcifications. 5. Very small bilateral pleural and pericardial effusions are noted. There is mild nonspecific pleural thickening at the bilateral major fissures and at the accessory fissure. 6. There is multi-level thoracic spondylosis, without aggressive osseous finding noted. Fleischner guidelines were followed. Electronically signed by: Erwin Turpin MD 06/09/2024 05:08 PM EDT
== END 2024-04-15 14:51 | disposition home or self-care (01) ==
LOC: HO.CT 14:50
PROVIDERS: Visit Provider Internal Medicine Pulmonary Disease
DX: J84.9 Interstitial pulmonary disease, unspecified (principal)
CPT/HCPCS: 71250

== ENCOUNTER 2024-04-18 13:18 | Outpatient (AMB) | payer MEDICARE, OTHER, SELFPAY ==
--- NOTE | 2024-04-18 13:24 | A.OFFPC_ITS ---
Vital Signs 04/18/24 13:25 Height 5 ft 3 in Weight 180 lb 4 oz BMI 31.9 BP 110/60 Blood Pressure Location Lt brachial Position Sitting Pulse 111 H Pulse Source Pulse Oximeter Pulse Oximetry (%) 95 Oxygen Delivery Method Nasal Cannula Oxygen Flow Rate 2 Intake Visit Reasons: OV per PCP Cs Associate Required: No Accompanied by: Self / Same As Patient Allergies codeine Allergy (Severe, Verified 04/18/24 13:56) felt like going to propranolol Allergy (Intermediate, Verified 04/18/24 13:56) dizziness Seasonal Allergies Allergy (Intermediate, Verified 04/18/24 13:56) Sneezing, vertigo Medication List - Last Reconciled 04/18/24 by Hank Ochoa MD acetaminophen (Tylenol) 650 mg PO QID PRN albuterol sulfate 90 mcg/actuation 2 puffs inhalation Q6H PRN atorvastatin 40 mg PO DAILY cyclobenzaprine 10 mg PO BEDTIME furosemide 60 mg (1.5 x 40 mg) PO QAM 30 days hydrocortisone 1% (Anti-Itch (hydrocortisone)) 1 appl topical BID PRN 2 weeks levothyroxine 88 mcg PO DAILY meclizine (Dramamine (meclizine)) 25 mg PO BID PRN meloxicam 15 mg PO DAILY metoprolol succinate ER 25 mg PO BID omeprazole 40 mg PO DAILY prednisone 10 mg PO DAILY tizanidine 2 mg PO BEDTIME PRN 14 days tramadol 50 mg PO BID PRN Tobacco use date assessed: 02/18/24 Fall risk assessment: No Falls in past year Last assessed Fall Risk: 04/18/24 Dental Screening Dental Screen Date: 10/22/23 HPI OV per PCP HPI Details 73-year-old female presents to the [facility] for a sick visit. Patient is in the office at my insistence. Patient has been complaining of spasms in the lower back radiating into the gluteal area for the past 4 weeks. In error, I had reported 4 months in the pr evious office visit. There was no fall or injury prior to the onset of symptoms. Pain symptoms are worse when she is changing position or getting up from a sitting position. In the past week, muscle relaxant, tramadol has given her minimal relief. When she is lying down or in one position she has very little discomfort. No urinary incontinence. Able to sleep at night. Her stress test has been rescheduled to the end of the month. Patient also reports that she is having worsening difficulty in breathing. Able to take deep breaths without any back pain. [facility] Medical History Bifascicular block Supplemental oxygen dependent CREST (calcinosis, Raynaud's phenomenon, esophageal dysfunction, sclerodactyly, telangiectasia) Dyspnea on exertion Pericardial effusion Complete heart block Hypothyroid Enlarged thyroid Hypertension Multinodular thyroid Telangiectasia Dysphagia Surgical History Status post cardiac pacemaker procedure S/P cardiac cath S/P tooth extraction Hx of colonoscopy H/O breast biopsy Family History Father Heart disease Sister Ovarian cancer Brother Heart attack Stroke Mother Thyroid disease Brother Asthma Social History Household Members: Spouse Housing: House Do you presently have visiting nurse or other home services: Yes ([facility]NA ,PT) Alcohol intake: never Patient Tobacco Use Status: Former Tobacco user Tobacco use type: Cigarette Years Smoked: 20 +/- e-Cigarette/Vaping Use: Never Used Second Hand Smoke Exposure: Yes Advance Directives Date on File: 02/13/24 service: No Current occupational status: retired 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 Carson Quiles, Malinda Morales, Tang Awad and colleagues, with an educational kevin from [employer]. Physical exam (Primary Care) Vital Signs: Last Vital Signs Pulse 111 H 04/18/24 13:25 BP 110/60 04/18/24 13:25 Pulse Ox 95 04/18/24 13:25 Oxygen Delivery Method Nasal Cannula 04/18/24 13:25 Oxygen Flow Rate 2 04/18/24 13:25 BMI result Body Mass Index 31.9 Tobacco/Smoking Status: Tobacco use Status Tobacco use date assessed 02/18/24 04/18/24 13:30 Patient Tobacco Use Status Former Tobacco user 04/18/24 13:30 Tobacco use type Cigarette 04/18/24 13:30 e-Cigarette/Vaping Use Never Used 04/18/24 13:30 Thrive Assessment: Date of Thrive Assessment Date Thrive assessed 02/14/24 04/18/24 13:30 Const General: cooperative and healthy appearing Nutritional Appearance: well nourished Orientation/consciousness: patient oriented x3 Limitations: no limitations HENMT Head: Yes normal to inspection Eyes General: appearance normal, both eyes and all related structures Neck Neck: Yes normal visual inspection Chest Chest palpation & inspection: normal palpation of entire chest wall Resp Effort & Inspection: normal respiratory effort Back/Spine/Pelvis Other: Back: No spinal tenderness, no paraspinal spasm. Neuro General: patient oriented x3 Assessment and Plan Assessment & Plan (1) Low back pain: Code(s): M54.50 - Low back pain, unspecified Plan: Patient's symptoms are due to muscular spasms. Discontinue tramadol. As per patient's request, Neurontin and cyclobenzaprine to be continued. Patient was advised complete rest and applying a heating pad. Coding Level of Care Code Est Pt Level 4 (06387) Complex EM visit Add On G2211 Diagnoses Low back pain M54.50
[2024-04-18 13:25] VITALS: BP 110/60; PULSE 111; O2SAT 95; BMI 31.9
== END 2024-04-18 13:53 | disposition home or self-care (01) ==
PROVIDERS: PCP Internal Medicine; Visit Provider Internal Medicine
DX: M54.50 Low back pain, unspecified (principal)
CPT/HCPCS: 99214; G2211

== ENCOUNTER 2024-04-18 13:59 | Outpatient (REF) | payer MEDICARE, OTHER, SELFPAY ==
[2024-04-18 14:53] LABS: INTERNATIONAL NORM RATIO 0.9 (0.9-1.1); Prothrombin Time 10.5 SEC (11.1-13.3)
== END 2024-04-18 14:00 | disposition home or self-care (01) ==
LOC: HO.LAB 13:59
PROVIDERS: PCP Internal Medicine; Visit Provider Internal Medicine Cardiovascular Disease
DX: Z79.01 Long term (current) use of anticoagulants (principal)
CPT/HCPCS: 36415; 85610

== ENCOUNTER → 2024-04-26 23:59 | Outpatient (BNV) | payer MEDICARE, OTHER, SELFPAY | PROVIDERS: PCP Internal Medicine; Visit Provider Internal Medicine Cardiovascular Disease | DX: I50.30 Unspecified diastolic (congestive) heart failure (principal); R06.02 Shortness of breath; I34.2 Nonrheumatic mitral (valve) stenosis | CPT/HCPCS: 93460; 99152 ==

== ENCOUNTER → 2024-05-05 23:59 | Outpatient (BNV) | payer MEDICARE, OTHER, SELFPAY | PROVIDERS: PCP Internal Medicine; Visit Provider Internal Medicine | DX: I11.0 Hypertensive heart disease with heart failure (principal); I50.9 Heart failure, unspecified; J96.11 Chronic respiratory failure with hypoxia | CPT/HCPCS: G0179 ==

== ENCOUNTER 2024-05-10 14:02 | Outpatient (AMB) | payer MEDICARE, OTHER, SELFPAY ==
[2024-05-10 14:04] VITALS: BP 124/70; PULSE 94; BMI 32.4
--- NOTE | 2024-05-10 14:04 | A.OFFVIS_ITS ---
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 Required: No Allergies codeine Allergy (Severe, Verified 05/10/24 14:06) felt like going to propranolol Allergy (Intermediate, Verified 05/10/24 14:06) dizziness Seasonal Allergies Allergy (Intermediate, Verified 05/10/24 14:06) Sneezing, vertigo Medication List - Last Reconciled 05/10/24 by Germaine Mead NP-C acetaminophen (Tylenol) 650 mg PO QID PRN atorvastatin 40 mg PO DAILY cyclobenzaprine 10 mg PO BEDTIME furosemide 60 mg (1.5 x 40 mg) PO QAM 30 days gabapentin (Neurontin) 300 mg PO BEDTIME hydrocortisone 1% (Anti-Itch (hydrocortisone)) 1 appl topical BID PRN 2 weeks levothyroxine 88 mcg PO DAILY meclizine (Dramamine (meclizine)) 25 mg PO BID PRN metoprolol succinate ER 50 mg PO BID omeprazole 40 mg PO DAILY prednisone 10 mg PO DAILY HPI HPI Follow up post cardiac cath: Details: Rajani is a 73-year-old female with past medical history of hypertension, crest syndrome, bifascicular block, interstitial lung disease, possible Congestive heart failure, complete heart block status post Medtronic dual-chamber pacemaker, mitral stenosis who recently underwent a right and left heart catheterization and now presents for follow-up. Today she reports that her breathing has been stable. She has shortness of breath with activities and wears oxygen as needed. She is wearing a continual O2 sat monitor and when she notices her readings below 90 she feels short of breath she will wear the oxygen. It is off during this visit. She denies cough or recent sickness. No chest discomfort at rest or with activity. No palpitations, lightheadedness, presyncope, syncope, falls. No PND, orthopnea or edema. Right groin catheterization site is feeling good. She is compliant with her medications. She has an appointment tomorrow with Dr. Mandujano. [facility] Medical History Bifascicular block Supplemental oxygen dependent CREST (calcinosis, Raynaud's phenomenon, esophageal dysfunction, sclerodactyly, telangiectasia) Dyspnea on exertion Pericardial effusion Complete heart block Hypothyroid Enlarged thyroid Hypertension Multinodular thyroid Telangiectasia Dysphagia Surgical History Status post cardiac pacemaker procedure S/P cardiac cath S/P tooth extraction Hx of colonoscopy H/O breast biopsy Family History Father Heart disease Sister Ovarian cancer Brother Heart attack Stroke Mother Thyroid disease Brother Asthma Social History Household Members: Spouse Housing: House Do you presently have visiting nurse or other home services: Yes ([facility]NA ,[place]) Alcohol intake: never Patient Tobacco Use Status: Former Tobacco user Tobacco use type: Cigarette Years Smoked: 20 +/- e-Cigarette/Vaping Use: Never Used Second Hand Smoke Exposure: Yes Advance Directives Date on File: 02/13/24 service: No Current occupational status: retired 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 Cognitive needs: No Hearing needs: No Vision needs: No Review of Systems Const All systems reviewed & are unremarkable except as noted in HPI and below ENT Denies dizziness Card Denies chest pain, Denies chest pain at rest, Denies chest pain with activity, Denies rapid heart rate, Denies pedal edema, Denies edema, Denies leg edema, Denies lightheadedness, Denies palpitations, Reports dyspnea, Reports dyspnea on exertion and Denies orthopnea Resp Denies cough, Reports dyspnea and Reports dyspnea on exertion GI Denies hematochezia and Denies change in stool character Musc Denies abnormal gait, Denies limited range of motion, Denies muscle cramps, Denies muscle weakness, Denies numbness, Denies radiating pain into limb, Denies stiffness and Denies tingling Neuro Denies abnormal gait, Denies dizziness, Denies numbness and Denies tingling Endo Denies palpitations Physical Exam Vital Signs: Last Vital Signs Pulse 94 05/10/24 14:04 BP 124/70 05/10/24 14:04 BMI result Body Mass Index 32.4 Const General: cooperative, healthy appearing, comfortable and no acute distress Orientation/consciousness: patient oriented x3 Neck Neck: Yes normal visual inspection Resp Other: She has portable oxygen with nasal cannula with her. She is wearing a continual sat monitor. Effort & Inspection: normal respiratory effort Auscultation: clear to auscultation bilaterally, no rales, no rhonchi and no wheezes Cardio Jugular venous distension: no JVD Rate: regular rate Rhythm: regular rhythm Heart sounds: S1 normal heart sound present, S2 normal heart sound present, no murmurs and no rubs Neuro General: patient oriented x3 Extrem General: Yes normal to inspection Psych Appearance: grossly normal Mental Status: mental status grossly normal Speech and movement: Normal speech and movement present Assessment & Plan Assessment & Plan (1) Mitral stenosis: Code(s): I05.0 - Rheumatic mitral stenosis Category: Medical Plan: Patient with dyspnea on exertion. Prior pulmonary function test revealed some concern for emphysema. She was admitted to [facility] in January 2024 with increased shortness of breath and hypoxia. CT scan was concerning for bilateral ground glass infiltrates concerning for interstitial lung disease versus Congestive heart failure. Her diuretics were increased. She follows with Dr. Monson for pulmonology. An echocardiogram had shown mitral stenosis, moderate to severe. She was put on beta-adair and dose titrated to 50 mg b.i.d.. A repeat echocardiogram done 04/08/2024 showed EF greater than 70%, impaired relaxation, moderate mitral stenosis, RVSP 23 mmHg. For further evaluation she underwent a right and left heart catheterization on 04/26/2024 showing no significant coronary artery disease, mitral stenosis with gradient 11 mmHg, wedge 15 mmHg, PA pressures //. Catheterization note makes mention of obtaining a transesophageal echocardiogram for further evaluation of her mitral valve. Today she tells me she is seeing Dr. Mandujano at [facility] tomorrow. Will check with her primary control system computer scientist Dr. Bermudez, regarding plan for PABLO. She does not appear in heart failure on exam today. Will continue current meds. Cardiology follow-up to be determined. (2) S/P cardiac cath: Comment: 10/31/22 @ [facility] [place] normal coronary arteries 04/26/2024, left main separate ostia lad mild mid disease, mild OM1 disease, RCA non dominant no disease, mitral stenosis gradient 11 mmHg, wedge 15, PA 47//21 Code(s): Z98.890 - Other specified postprocedural states Category: Surgical Plan: As above (3) CREST (calcinosis, Raynaud's phenomenon, esophageal dysfunction, sclerodactyly, telangiectasia): Comment: dx 2021 (Raynaud's, sclerodactyly, telangiectasias, abnormal nailfold capillaroscopy, questionable esophageal dysmotility, +++ centromere) Code(s): M34.1 - CR(E)ST syndrome Category: Medical Plan: As stated in history (4) Dyspnea on exertion: Code(s): R06.09 - Other forms of dyspnea Category: Medical Plan: As above (5) ILD (interstitial lung disease): Code(s): J84.9 - Interstitial pulmonary disease, unspecified Category: Medical Plan: Follows with Dr. Monson (6) S/P placement of cardiac pacemaker: Comment: Medtronic dual-chamber pacemaker for complete heart block 12/2023 Code(s): Z95.0 - Presence of cardiac pacemaker Category: Surgical Plan: Medtronic dual-chamber pacemaker. She has remote monitoring in use. Will arrange for office interrogation on her next visit. Plan Time spent on chart review, documentation, interview and assessment Medications: Changed From metoprolol succinate ER 25 mg PO BID 180 tabs 3RF To metoprolol succinate ER 50 mg PO BID Coding Level of Care Code Est Pt Level 4 (28847) Diagnoses Mitral stenosis I05.0 S/P cardiac cath Z98.890 CREST (calcinosis, Raynaud's phenomenon, esophageal dysfunction, sclerodactyly, telangiectasia) M34.1 Dyspnea on exertion R06.09 ILD (interstitial lung disease) J84.9 S/P placement of cardiac pacemaker Z95.0 Time Spent (min) 36
== END 2024-05-10 14:35 | disposition home or self-care (01) ==
PROVIDERS: PCP Internal Medicine; Visit Provider Nurse Practitioner Family
DX: I05.0 Rheumatic mitral stenosis (principal); Z98.890 Other specified postprocedural states; M34.1 CR(E)ST syndrome; R06.09 Other forms of dyspnea; J84.9 Interstitial pulmonary disease, unspecified; Z95.0 Presence of cardiac pacemaker
CPT/HCPCS: 99214

== ENCOUNTER → 2024-05-10 14:02 | Outpatient (BNVA) | payer MEDICARE, OTHER, SELFPAY | PROVIDERS: PCP Internal Medicine; Visit Provider Nurse Practitioner Family | DX: I10 Essential (primary) hypertension (principal); M34.1 CR(E)ST syndrome; I05.0 Rheumatic mitral stenosis; I45.2 Bifascicular block; J84.9 Interstitial pulmonary disease, unspecified; Z98.890 Other specified postprocedural states; Z95.0 Presence of cardiac pacemaker; Z99.81 Dependence on supplemental oxygen | CPT/HCPCS: 99212 ==

== ENCOUNTER → 2024-05-14 23:59 | Outpatient (BNV) | payer MEDICARE, OTHER, SELFPAY ==
--- NOTE | 2024-05-27 18:48 | MHC.OFFVIS ---
Intake Visit Reasons: Remote Device Check-Medtronic Allergies codeine Allergy (Severe, Verified 05/25/24 13:08) felt like going to propranolol Allergy (Intermediate, Verified 05/25/24 13:08) dizziness Seasonal Allergies Allergy (Intermediate, Verified 05/25/24 13:08) Sneezing, vertigo PFSH Medical History (Updated 05/18/24 @ 14:31 by Hank Ochoa MD) Lower thoracic back pain Bifascicular block Supplemental oxygen dependent CREST (calcinosis, Raynaud's phenomenon, esophageal dysfunction, sclerodactyly, telangiectasia) Dyspnea on exertion Pericardial effusion Complete heart block Hypothyroid Enlarged thyroid Hypertension Multinodular thyroid Telangiectasia Dysphagia Surgical History Status post cardiac pacemaker procedure S/P cardiac cath S/P tooth extraction Hx of colonoscopy H/O breast biopsy Family History Father Heart disease Sister Ovarian cancer Brother Heart attack Stroke Mother Thyroid disease Brother Asthma Social History Household Members: Spouse Housing: House Do you presently have visiting nurse or other home services: Yes ([facility] ,PT) Alcohol intake: never Patient Tobacco Use Status: Former Tobacco user Tobacco use type: Cigarette Years Smoked: 20 +/- e-Cigarette/Vaping Use: Never Used Second Hand Smoke Exposure: Yes Advance Directives Date on File: 02/13/24 service: No Current occupational status: retired 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 Cognitive needs: No Hearing needs: No Vision needs: No Office Procedures Cardiac Device Check Cardiac Device Check Details: PPM Good battery life BUILDING STONECUTTER 100% [id number] Cardiac Device Check, pacemaker dual lead Procedure code (CPT) selection complete Assessment & Plan Assessment & Plan (1) S/P placement of cardiac pacemaker: Comment: Medtronic dual-chamber pacemaker for complete heart block 12/2023 Code(s): Z95.0 - Presence of cardiac pacemaker Category: Surgical Plan Coding Level of Care Code Procedure Only Diagnoses S/P placement of cardiac pacemaker Z95.0 CPT Codes Cardiac Device Check - Cardiac Device 2: 51629-[id number] Cardiac Device Check, pacemaker dual lead ([id number])
== END ==
PROVIDERS: PCP Internal Medicine; Visit Provider Internal Medicine Cardiovascular Disease
DX: I44.2 Atrioventricular block, complete (principal); Z95.0 Presence of cardiac pacemaker
CPT/HCPCS: 93294

== ENCOUNTER 2024-05-18 13:27 | Outpatient (AMB) | payer MEDICARE, OTHER, SELFPAY ==
--- NOTE | 2024-05-18 13:28 | MHC.PC.OV ---
Intake Visit Reasons: Pain/Medication review Intake Note: Patient is here to follow up on pain and medication review. Flatbed Company Driver Required: No Senior Sales Operations Analyst: Not Required per policy Accompanied by: Self / Same As Patient Allergies codeine Allergy (Severe, Verified 05/18/24 14:36) felt like going to propranolol Allergy (Intermediate, Verified 05/18/24 14:36) dizziness Seasonal Allergies Allergy (Intermediate, Verified 05/18/24 14:36) Sneezing, vertigo Medication List - Last Reconciled 05/18/24 by Hank Ochoa MD acetaminophen (Tylenol) 650 mg PO QID PRN atorvastatin 40 mg PO DAILY furosemide 60 mg (1.5 x 40 mg) PO QAM 30 days levothyroxine 88 mcg PO DAILY meclizine (Dramamine (meclizine)) 25 mg PO BID PRN metoprolol succinate ER 50 mg PO BID omeprazole 40 mg PO DAILY prednisone 10 mg PO DAILY tramadol 50 mg PO BID PRN Tobacco use date assessed: 05/18/24 Fall risk assessment: 1 Fall in past year Last assessed Fall Risk: 05/18/24 Dental Screening Dental Screen Date: 10/22/23 HPI Pain/Medication review HPI Details 73-year-old female wishes to discuss her medical health via tele health. Patient reports symptoms of low back pain that began in February 2024. The symptoms are getting worse. She now has difficulty going to the bathroom in the morning, getting up from the chair and trying to work in the kitchen. She does not go to the grocery sharp anymore. Her quality of life is worsening. She is not able to ambulate as well as before. Patient was 1st seen in March and given a trial of meloxicam and cyclobenzaprine. When she had minimal relief, gabapentin and tramadol was suggested. After taking a dosage of tramadol, she decided not to take it anymore. However she is not seeing much relief with gabapentin. Still taking the cyclobenzaprine at night. When patient started taking the tramadol at twice a day, she obtained some relief. Patient is also going to see the mainframe systems engineer to determine if her prednisone can be tapered or stopped. [facility] Medical History (Updated 05/18/24 @ 14:31 by Hank Ochoa MD) Lower thoracic back pain Bifascicular block Supplemental oxygen dependent CREST (calcinosis, Raynaud's phenomenon, esophageal dysfunction, sclerodactyly, telangiectasia) Dyspnea on exertion Pericardial effusion Complete heart block Hypothyroid Enlarged thyroid Hypertension Multinodular thyroid Telangiectasia Dysphagia Surgical History Status post cardiac pacemaker procedure S/P cardiac cath S/P tooth extraction Hx of colonoscopy H/O breast biopsy Family History Father Heart disease Sister Ovarian cancer Brother Heart attack Stroke Mother Thyroid disease Brother Asthma Social History Household Members: Spouse Housing: House Do you presently have visiting nurse or other home services: Yes ([facility]NA ,PT) Alcohol intake: never Patient Tobacco Use Status: Former Tobacco user Tobacco use type: Cigarette Years Smoked: 20 +/- e-Cigarette/Vaping Use: Never Used Second Hand Smoke Exposure: Yes Advance Directives Date on File: 02/13/24 service: No Current occupational status: retired 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 Carson Quiles, Malinda Morales, Tang Awad and colleagues, with an educational kevin from [employer]. Physical exam (Primary Care) Tobacco/Smoking Status: Tobacco use Status Tobacco use date assessed 05/18/24 05/18/24 13:32 Patient Tobacco Use Status Former Tobacco user 05/18/24 13:32 Tobacco use type Cigarette 05/18/24 13:32 e-Cigarette/Vaping Use Never Used 05/18/24 13:32 Thrive Assessment: Date of Thrive Assessment Date Thrive assessed 02/14/24 05/18/24 13:32 Telehealth Telehealth Telehealth Platform: [facility] Location of provider rendering services: practice address Location of patient: address on file Patient Identification confirmed using: Name, : Yes Telehealth method: voice only Patient verbally consented to treatment: Yes Patient verbally consented to billing insurance company: Yes Patient informed of any privacy concerns related to visit: Yes Minutes spent on Phone/Video with Pt.: 15 Assessment and Plan Assessment & Plan (1) Lower thoracic back pain: Code(s): M54.6 - Pain in thoracic spine Plan: Gabapentin and cyclobenzaprine have been discontinued. Patient has been advised to take tramadol till the rheumatology appointment scheduled on May 31. After patient sees the hot oiler, additional testing or imaging for low back pain will be considered. Patient sees a chiropractor for the same complaint and has been told she has a misaligned spine. Has not seen physical therapy yet. Medications: New tramadol 50 mg PO BID PRN 60 tabs 0RF pain Discontinued cyclobenzaprine Discontinued Reason: Doctor's Order 10 mg PO BEDTIME 14 tabs 0RF gabapentin (Neurontin) Discontinued Reason: Doctor's Order 300 mg PO BEDTIME 30 caps 0RF Coding Level of Care Code Tele Est Pt Level 4 (49063) Complex EM visit Add On G2211 Diagnoses Lower thoracic back pain M54.6
== END 2024-05-18 16:28 | disposition home or self-care (01) ==
LOC: HO.HMCH 13:27
PROVIDERS: PCP Internal Medicine; Visit Provider Internal Medicine
DX: M54.6 Pain in thoracic spine (principal)

== ENCOUNTER → 2024-05-18 13:27 | Outpatient (BNVA) | payer MEDICARE, OTHER, SELFPAY | PROVIDERS: PCP Internal Medicine; Visit Provider Internal Medicine ==

== ENCOUNTER 2024-05-23 10:51 | Outpatient (AMB) | payer MEDICARE, OTHER, SELFPAY ==
[2024-05-23 10:55] VITALS: BP 124/67; PULSE 89; O2SAT 98; BMI 31.9
--- NOTE | 2024-05-23 10:55 | A.OFFVIS_ITS ---
Vital Signs 05/23/24 10:55 Height 5 ft 3 in Weight 180 lb BMI 31.9 BP 124/67 Blood Pressure Location Rt brachial Position Sitting Pulse 89 Pulse Source Doppler Pulse Oximetry (%) 98 Oxygen Delivery Method Nasal Cannula Oxygen Flow Rate 2 Intake Visit Reasons: [place] Allergies codeine Allergy (Severe, Verified 05/18/24 14:36) felt like going to propranolol Allergy (Intermediate, Verified 05/18/24 14:36) dizziness Seasonal Allergies Allergy (Intermediate, Verified 05/18/24 14:36) Sneezing, vertigo HPI HPI [place]: Details: 73-year-old lady, former 40 pack smoker, quit 30 years prior, with underlying CREST under Rheumatology care, now followed for pulmonary component of dyspnea on exertion and possible crest associated ILD. She continues on prednisone 10 mg daily and Lasix 60 mg daily. She does complain of slow weight gain. Patient continues to use supplemental oxygen at 2 L continuous flow. She continues to undergo cardiac workup, now planned for PABLO for concern for calcified mitral valve. Patient's cardiac surgeon wants her to be completely off prednisone. She has completed follow-up CT chest that shows improving bilateral pulmonary edema. [facility] Medical History (Updated 05/18/24 @ 14:31 by Hank Ochoa MD) Lower thoracic back pain Bifascicular block Supplemental oxygen dependent CREST (calcinosis, Raynaud's phenomenon, esophageal dysfunction, sclerodactyly, telangiectasia) Dyspnea on exertion Pericardial effusion Complete heart block Hypothyroid Enlarged thyroid Hypertension Multinodular thyroid Telangiectasia Dysphagia Surgical History Status post cardiac pacemaker procedure S/P cardiac cath S/P tooth extraction Hx of colonoscopy H/O breast biopsy Family History Father Heart disease Sister Ovarian cancer Brother Heart attack Stroke Mother Thyroid disease Brother Asthma Social History Household Members: Spouse Housing: House Do you presently have visiting nurse or other home services: Yes ([facility]NA ,PT) Alcohol intake: never Patient Tobacco Use Status: Former Tobacco user Tobacco use type: Cigarette Years Smoked: 20 +/- e-Cigarette/Vaping Use: Never Used Second Hand Smoke Exposure: Yes Advance Directives Date on File: 02/13/24 service: No Current occupational status: retired 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 Cognitive needs: No Hearing needs: No Vision needs: No Review of Systems Const Denies daytime sleepiness, Denies excessive sweating, Denies fatigue, Denies fever(s), Denies lethargy, Denies malaise, Denies night sweats, Denies snoring and Denies weight loss Eyes Denies blurry vision and Denies itchy eyes ENT Denies nasal congestion, Denies post nasal drip, Denies sinus pain, Denies sinus pressure and Denies other ( Thrush) Card Denies chest pain, Denies pedal edema, Denies dyspnea, Reports dyspnea on exertion, Denies orthopnea and Denies paroxysmal nocturnal dyspnea Resp Denies cough, Denies hemoptysis, Denies excessive phlegm production, Denies dyspnea, Reports dyspnea on exertion, Denies snoring and Denies wheezing GI Denies abdominal pain and Denies heartburn Musc Denies myalgias, Denies arthralgias and Denies joint swelling Skin/Breast Denies rash Neuro Denies memory loss and Denies seizure-like activity Psych Denies abnormal sleep pattern, Denies anxiety and Denies memory loss Endo Denies excessive sweating, Denies fatigue and Denies heat intolerance Kenneth/Lymph Denies easy bruising Aller/Immun Denies itchy eyes, Denies seasonal rhinorrhea and Denies wheezing Physical Exam Vital Signs: Last Vital Signs Pulse 89 05/23/24 10:55 BP 124/67 05/23/24 10:55 Pulse Ox 98 05/23/24 10:55 Oxygen Delivery Method Nasal Cannula 05/23/24 10:55 Oxygen Flow Rate 2 05/23/24 10:55 BMI result Body Mass Index 31.9 Const General: no acute distress and alert Nutritional Appearance: not obese Orientation/consciousness: Other orientation findings ( oriented) HEENT Head: Yes atraumatic Eyes General: appearance normal, both eyes and all related structures Sclerae: sclerae normal EOM: EOMs intact bilaterally Neck Neck: Yes supple Lymphatic: no lymphadenopathy noted Resp Effort & Inspection: normal respiratory effort and no use of accessory muscles Auscultation: clear to auscultation bilaterally Cardio Rate: regular rate Rhythm: regular rhythm Heart sounds: no gallops, no murmurs and no rubs Skin General skin exam: other ( warm) Extrem General: No clubbing, No cyanosis and Yes edema (Trace bilateral) Assessment & Plan Assessment & Plan (1) Dyspnea on exertion: Code(s): R06.09 - Other forms of dyspnea Category: Medical Plan: Appears to have significant cardiac component. Patient continues to undergo cardiac evaluation for mitral stenosis secondary to calcified valve. CT chest reviewed, shows improving pulmonary edema. At this time will continue on current regimen of Lasix 60 mg daily. Will taper off prednisone. (2) Supplemental oxygen dependent: Code(s): Z99.81 - Dependence on supplemental oxygen Category: Medical Plan: Continue supplemental oxygen to maintain O2 saturation above 88%. (3) Lower thoracic back pain: Code(s): M54.6 - Pain in thoracic spine Category: Medical Plan: Will refer to pain management. Orders: Referrals Pain Management Referral M54.6 - Pain in thoracic spine Coding Level of Care Code Est Pt Level 4 (03167) Complex EM visit Add On G2211 Diagnoses Dyspnea on exertion R06.09 Supplemental oxygen dependent Z99.81 Lower thoracic back pain M54.6
== END 2024-05-23 11:20 | disposition home or self-care (01) ==
PROVIDERS: PCP Physician Assistant; Visit Provider Internal Medicine Pulmonary Disease
DX: R06.09 Other forms of dyspnea (principal); Z99.81 Dependence on supplemental oxygen; M54.6 Pain in thoracic spine
CPT/HCPCS: 99214; G2211

== ENCOUNTER → 2024-05-23 10:51 | Outpatient (BNVA) | payer MEDICARE, OTHER, SELFPAY | PROVIDERS: PCP Physician Assistant; Visit Provider Internal Medicine Pulmonary Disease | DX: J81.1 Chronic pulmonary edema (principal); R06.09 Other forms of dyspnea; M34.1 CR(E)ST syndrome; Z99.81 Dependence on supplemental oxygen; Z87.891 Personal history of nicotine dependence; Z79.52 Long term (current) use of systemic steroids; Z79.899 Other long term (current) drug therapy | CPT/HCPCS: 99212 ==

== ENCOUNTER 2024-05-25 09:52 | Outpatient (AMB) | payer MEDICARE, OTHER, SELFPAY ==
--- NOTE | 2024-05-25 09:53 | MHC.PC.OV ---
Vital Signs 05/25/24 09:55 Height 5 ft 3 in Weight 180 lb BMI 31.9 BP 110/66 Blood Pressure Location Rt brachial Position Sitting Pulse 70 Pulse Source Pulse Oximeter Pulse Oximetry (%) 97 Oxygen Delivery Method Nasal Cannula Intake Visit Reasons: 3mof\u Intake Note: Patient is here to follow up on WISAM, CRF, CAD. Yarn Hauler Required: No Metal Dealer: Present Accompanied by: Daughter Allergies codeine Allergy (Severe, Verified 05/25/24 13:08) felt like going to propranolol Allergy (Intermediate, Verified 05/25/24 13:08) dizziness Seasonal Allergies Allergy (Intermediate, Verified 05/25/24 13:08) Sneezing, vertigo Medication List - Last Reconciled 05/25/24 by Hank Ochoa MD acetaminophen (Tylenol) 650 mg PO QID PRN atorvastatin 40 mg PO DAILY furosemide 60 mg (1.5 x 40 mg) PO QAM 30 days levothyroxine 88 mcg PO DAILY meclizine (Dramamine (meclizine)) 25 mg PO BID PRN metoprolol succinate ER 50 mg PO BID omeprazole 40 mg PO DAILY prednisone 5 mg PO DAILY tramadol 50 mg PO BID PRN Tobacco use date assessed: 05/25/24 Fall risk assessment: No Falls in past year Last assessed Fall Risk: 05/25/24 Dental Screening Dental Screen Date: 10/22/23 HPI 3mof\u HPI Details 73 yr old female presents to the office to discuss her lower back pain. She is depressed about it, medications nor chiropracter or therapy has helped any. She is having symptoms of pain since February 2024. Recently tramadol was increased to twice a day and the Gabapentin stopped. No change in her symptoms. Pain is worse when she gets up from a sitting position. Bending forwards releives some of the pain. At rest or when sitting down or lying down she is pain free. Pain radiates from her lower back into her gluteal area. Unable to enjoy the outdoors or go shopping. 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 Indepentantly she has a heart valve that needs repair. Her prednisone is being tapered as she gets ready for the valve surgery. [facility] Medical History (Updated 05/18/24 @ 14:31 by Hank Ochoa MD) Lower thoracic back pain Bifascicular block Supplemental oxygen dependent CREST (calcinosis, Raynaud's phenomenon, esophageal dysfunction, sclerodactyly, telangiectasia) Dyspnea on exertion Pericardial effusion Complete heart block Hypothyroid Enlarged thyroid Hypertension Multinodular thyroid Telangiectasia Dysphagia Surgical History Status post cardiac pacemaker procedure S/P cardiac cath S/P tooth extraction Hx of colonoscopy H/O breast biopsy Family History Father Heart disease Sister Ovarian cancer Brother Heart attack Stroke Mother Thyroid disease Brother Asthma Social History Household Members: Spouse Housing: House Do you presently have visiting nurse or other home services: Yes ([facility] ,PT) Alcohol intake: never Patient Tobacco Use Status: Former Tobacco user Tobacco use type: Cigarette Years Smoked: 20 +/- e-Cigarette/Vaping Use: Never Used Second Hand Smoke Exposure: Yes Advance Directives Date on File: 02/13/24 service: No Current occupational status: retired 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 Carson Quiles, Malinda Morales, Tang Awad and colleagues, with an educational kevin from [employer]. Physical exam (Primary Care) Vital Signs: Last Vital Signs Pulse 70 05/25/24 09:55 BP 110/66 05/25/24 09:55 Pulse Ox 97 05/25/24 09:55 Oxygen Delivery Method Nasal Cannula 05/25/24 09:55 BMI result Body Mass Index 31.9 Tobacco/Smoking Status: Tobacco use Status Tobacco use date assessed 05/25/24 05/25/24 10:01 Patient Tobacco Use Status Former Tobacco user 05/25/24 10:01 Tobacco use type Cigarette 05/25/24 10:01 e-Cigarette/Vaping Use Never Used 05/25/24 10:01 Thrive Assessment: Date of Thrive Assessment Date Thrive assessed 02/14/24 05/25/24 10:01 Const General: cooperative and healthy appearing Nutritional Appearance: well nourished Orientation/consciousness: patient oriented x3 Limitations: no limitations HENMT Head: Yes normal to inspection Eyes General: appearance normal, both eyes and all related structures Neck Neck: Yes normal visual inspection Chest Chest palpation & inspection: normal palpation of entire chest wall Resp Effort & Inspection: normal respiratory effort Back/Spine/Pelvis Other: Spine: No CVA or paraspinal tenderness. No visible rash or bruising. Neuro General: patient oriented x3 Assessment and Plan Assessment & Plan (1) Lower thoracic back pain: Code(s): M54.6 - Pain in thoracic spine Plan: Patient has an appointment for pain management. X-rays of the thoracic and pelvis have been suggested. An MRI to rule out spinal stenosis has been ordered. Patient was advised to use a walker so that she could lean on to relieve the pain while walking. Prednisone is on taper so that patient gets ready for her cardiac surgery. Orders: Orders Erythrocyte Sedimentation Rate Today M54.6 - Pain in thoracic spine MR lumbar spine w con Today M48.00 - Spinal stenosis, site unspecified XR lumbar spine 2-3V Today M54.6 - Pain in thoracic spine XR pelvis min 3V Today M54.6 - Pain in thoracic spine Coding Level of Care Code Est Pt Level 4 (42891) Complex EM visit Add On G2211 Diagnoses Lower thoracic back pain M54.6
[2024-05-25 09:55] VITALS: BP 110/66; PULSE 70; O2SAT 97; BMI 31.9
== END 2024-05-25 13:37 | disposition home or self-care (01) ==
PROVIDERS: PCP Internal Medicine; Visit Provider Internal Medicine
DX: M54.6 Pain in thoracic spine (principal)

== ENCOUNTER 2024-05-25 09:52 | Outpatient (REF) | payer MEDICARE, OTHER, SELFPAY ==
--- NOTE | ~2024-05-25 | XR_ITS ---
EXAMINATION: XR LUMBOSACRAL SPINE CLINICAL INFORMATION: Pain in the lumbar spine COMPARISON: None available. TECHNIQUE: Three views of the lumbosacral spine. FINDINGS: The bones are diffusely demineralized. There are 5 nonrib-bearing lumbar-type vertebral bodies. There is a large left L5 transverse process which appears to be partially sacralized and and is possibly creating a pseudojoint. There are 5 lumbar vertebral bodies is well-maintained. There is marked disc space narrowing at L3-L4 with marginal osteophyte formation. The L5-S1 disc space is narrow. There is marked degenerative facet joint disease at multiple lumbar levels. There is grade 1 anterolisthesis of L3 with respect to L4 and mild retrolisthesis of L2 with respect to L3. Calcific densities are seen adjacent to the left hip joint. XR/XR lumbar spine 2-3V IMPRESSION: 1. Degenerative disc disease at L3-L4 and L5-S1. 2. Multilevel degenerative facet joint disease. 3. Multilevel spondylolisthesis. 4. Large left L5 transverse process which appears to be partially sacralized and possibly creating a pseudojoint. CT scan could be obtained for further evaluation. Electronically signed by: Fanny Love MD 06/09/2024 02:03 PM EDT
--- NOTE | ~2024-05-25 | XR_ITS ---
EXAMINATION: X-RAY PELVIS CLINICAL INDICATION: Pain in the lumbar spine. COMPARISON: None available. TECHNIQUE: 4 views of the pelvis. FINDINGS: Diffuse demineralization. Degenerative changes in the imaged lower lumbar spine better described on separate report for lumbar spine of 05/24/2024. Moderate degenerative changes in bilateral hips. Abundant amorphous calcifications identified adjacent to the bilateral hips as well as adjacent iliac wings and pubic rami. Multiple small rounded pelvic calcifications. Diffuse demineralization. Moderate degenerative changes in the bilateral sacroiliac joints. XR/XR pelvis min 3V IMPRESSION: 1. Moderate degenerative changes in bilateral hips. 2. Abundant amorphous calcifications identified adjacent to the bilateral hips as well as adjacent iliac wings and pubic rami. Multiple small rounded pelvic calcifications. Electronically signed by: Eva Trent MD 06/14/2024 12:55 PM EDT
== END 2024-05-25 09:53 | disposition home or self-care (01) ==
LOC: HO.XRAY 09:52
PROVIDERS: PCP Internal Medicine; Visit Provider Internal Medicine
DX: M54.6 Pain in thoracic spine (principal); M48.00 Spinal stenosis, site unspecified
CPT/HCPCS: 72100; 72190; 99212

== ENCOUNTER 2024-05-31 11:22 | Outpatient (AMB) | payer MEDICARE, OTHER, SELFPAY ==
--- NOTE | 2024-05-31 11:24 | MHC.OFFVIS ---
Vital Signs 05/31/24 11:28 Height 5 ft 3 in Weight 181 lb 7.047 oz BMI 32.1 BP 115/62 Blood Pressure Location Rt brachial Position Sitting Pulse 92 Pulse Source Pulse Oximeter Pulse Oximetry (%) 95 Oxygen Delivery Method Room Air Intake Visit Reasons: CREST Intake Note: Patient presents for Crest. Allergies codeine Allergy (Severe, Verified 05/31/24 11:27) felt like going to propranolol Allergy (Intermediate, Verified 05/31/24 11:27) dizziness Seasonal Allergies Allergy (Intermediate, Verified 05/31/24 11:27) Sneezing, vertigo Medication List - Last Reconciled 05/31/24 by Mariah Burroughs MD acetaminophen (Tylenol) 650 mg PO QID PRN atorvastatin 40 mg PO DAILY furosemide 60 mg (1.5 x 40 mg) PO QAM 30 days levothyroxine 88 mcg PO DAILY meclizine (Dramamine (meclizine)) 25 mg PO BID PRN metoprolol succinate ER 50 mg PO BID omeprazole 40 mg PO DAILY tramadol 50 mg PO BID PRN HPI Comments Details: This is a 73-year-old female with crest who presents for follow-up. Patient had a right and left heart catheterization which showed calcified mitral valve. She states that she will be going for a PABLO as well as the CT scan of the heart to further evaluate her for possible transcatheter mitral valve replacement. Her Raynaud's has been well controlled. She is not on amlodipine. Her prednisone has been discontinued. She has been taking Lasix 6 mg daily. She states that her shortness of breath is overall improved. Her main complaint today is low back pain that travels down both lower extremities. She states that it came out of nowhere and has not been improving. She took tramadol without improvement, gabapentin also not helpful. She also tried pain patches. She was referred to see pain management. Appointment in about 2 weeks. [facility] Medical History Lower thoracic back pain Bifascicular block Supplemental oxygen dependent CREST (calcinosis, Raynaud's phenomenon, esophageal dysfunction, sclerodactyly, telangiectasia) Dyspnea on exertion Pericardial effusion Complete heart block Hypothyroid Enlarged thyroid Hypertension Multinodular thyroid Telangiectasia Dysphagia Surgical History Status post cardiac pacemaker procedure S/P cardiac cath S/P tooth extraction Hx of colonoscopy H/O breast biopsy Family History Father Heart disease Sister Ovarian cancer Brother Heart attack Stroke Mother Thyroid disease Brother Asthma Social History Household Members: Spouse Housing: House Do you presently have visiting nurse or other home services: Yes ([facility] ,PT) Alcohol intake: never Patient Tobacco Use Status: Former Tobacco user Tobacco use type: Cigarette Years Smoked: 20 +/- e-Cigarette/Vaping Use: Never Used Second Hand Smoke Exposure: Yes Advance Directives Date on File: 02/13/24 service: No Current occupational status: retired 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 Cognitive needs: No Hearing needs: No Vision needs: No Review of Systems Card Reports dyspnea on exertion Resp Reports dyspnea on exertion GI Reports heartburn Musc Reports back pain, Denies arthralgias, Denies joint swelling and Reports radiating pain into limb Physical Exam Vital Signs: Last Vital Signs Pulse 92 05/31/24 11:28 BP 115/62 05/31/24 11:28 Pulse Ox 95 05/31/24 11:28 Oxygen Delivery Method Room Air 05/31/24 11:28 BMI result Body Mass Index 32.1 Const General: cooperative, healthy appearing and comfortable Nutritional Appearance: obese Orientation/consciousness: patient oriented x3 Limitations: no limitations HEENT Other: Reduced mouth opening Head: Yes normocephalic and Yes atraumatic Mouth: moist mucous membranes Resp Effort & Inspection: normal respiratory effort and able to speak in complete sentences Auscultation: clear to auscultation bilaterally Cardio Rate: regular rate Rhythm: regular rhythm Skin Other: Numerous telangiectasias Neuro General: patient oriented x3 Extrem Other: Mild sclerodactyly No active synovitis Left ring finger with few dilated loops Fingertips are warm today Results Reviewed Results Reviewed: CT chest from reviewed. There is no official report from radiologist Showed improving interstitial edema. Some reticulation in the peripherally. 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 Patient main complaint is dyspnea on exertion with seems to have improved with diuretics. Repeat CT chest showed improving interstitial edema. She recently had right and left heart catheterization and will be going for a PABLO to be evaluated for transcatheter mitral valve replacement. Her Raynaud's has been well controlled. She is off amlodipine. It was discontinued by senior research project manager. Advised patient to continue with conservative measures for Raynaud's. Fluoxetine can be added Continue with omeprazole. She takes it 1 hour before supper Follow-up in 3 months (2) Lumbar radiculopathy: Code(s): M54.16 - Radiculopathy, lumbar region Category: Medical Plan: Seems to be her main complaint today. Did not improve with tramadol, gabapentin, lidocaine patches, Tylenol. Has an appointment with pain management in 2 weeks Plan I spent 20 minutes reviewing patient's chart, evaluating patient,, counseling patient and documenting in the chart Coding Level of Care Code Est Pt Level 4 (81320) Diagnoses CREST (calcinosis, Raynaud's phenomenon, esophageal dysfunction, sclerodactyly, telangiectasia) M34.1 Lumbar radiculopathy M54.16
[2024-05-31 11:28] VITALS: BP 115/62; PULSE 92; O2SAT 95; BMI 32.1
== END 2024-05-31 12:12 | disposition home or self-care (01) ==
PROVIDERS: PCP Physician Assistant; Visit Provider Student in an Organized Health Care Education/Training Program
DX: M34.1 CR(E)ST syndrome (principal); M54.16 Radiculopathy, lumbar region
CPT/HCPCS: 99214

== ENCOUNTER → 2024-05-31 11:22 | Outpatient (BNVA) | payer MEDICARE, OTHER, SELFPAY | PROVIDERS: PCP Physician Assistant; Visit Provider Student in an Organized Health Care Education/Training Program | DX: M34.1 CR(E)ST syndrome (principal); M54.16 Radiculopathy, lumbar region | CPT/HCPCS: 99212 ==

== ENCOUNTER 2024-06-08 14:19 | Outpatient (REF) | payer MEDICARE, OTHER, SELFPAY ==
--- NOTE | ~2024-06-08 | XR_ITS ---
EXAMINATION: X-RAY PELVIS CLINICAL INDICATION: Pain in the lumbar spine. COMPARISON: None available. TECHNIQUE: 4 views of the pelvis. FINDINGS: Diffuse demineralization. Degenerative changes in the imaged lower lumbar spine better described on separate report for lumbar spine of 05/24/2024. Moderate degenerative changes in bilateral hips. Abundant amorphous calcifications identified adjacent to the bilateral hips as well as adjacent iliac wings and pubic rami. Multiple small rounded pelvic calcifications. Diffuse demineralization. Moderate degenerative changes in the bilateral sacroiliac joints. XR/XR thoracic spine 3V IMPRESSION: 1. Moderate degenerative changes in bilateral hips. 2. Abundant amorphous calcifications identified adjacent to the bilateral hips as well as adjacent iliac wings and pubic rami. Multiple small rounded pelvic calcifications. Electronically signed by: Eva Trent MD 06/14/2024 12:55 PM EDT
== END 2024-06-08 14:20 | disposition home or self-care (01) ==
LOC: HO.XRAY 14:19
PROVIDERS: PCP Internal Medicine; Visit Provider Anesthesiology
DX: M54.2 Cervicalgia (principal); M54.6 Pain in thoracic spine; R20.8 Other disturbances of skin sensation; M47.816 Spondylosis without myelopathy or radiculopathy, lumbar region; M34.1 CR(E)ST syndrome; J84.9 Interstitial pulmonary disease, unspecified
CPT/HCPCS: 72072; 99202

== ENCOUNTER 2024-06-08 14:19 | Outpatient (AMB) | payer MEDICARE, OTHER, SELFPAY ==
--- NOTE | 2024-06-08 14:20 | A.OFFVIS_ITS ---
Vital Signs 06/08/24 14:34 Height 5 ft 3 in Weight 180 lb 4 oz BMI 31.9 BP 139/67 Blood Pressure Location Lt brachial Position Sitting Respiration 14 Pulse 96 Pulse Source Pulse Oximeter Pulse Oximetry (%) 93 Oxygen Delivery Method Nasal Cannula Oxygen Flow Rate 2 Intake Visit Reasons: Pain in thoracic spine Intake Note: Patient comes in for initial visit was referred [facility] Pulmonology. She was accompanied by daughter Margarito. Reports pain 10/10. Accompanied by: Daughter Allergies codeine Allergy (Severe, Verified 06/08/24 14:30) felt like going to propranolol Allergy (Intermediate, Verified 06/08/24 14:30) dizziness Seasonal Allergies Allergy (Intermediate, Verified 06/08/24 14:30) Sneezing, vertigo HPI Comments Details: Rajani is very pleasant 73 years old female who is a victim of crest syndrome and who is presenting in my office today with complains on lower back pain in aching and stabbing sensation without radiation into bilateral lower extremity all the with sensation of burning into bilateral calves as well as aching pain bilateral shoulders and bilateral base of the neck. She reports that she can not sleep normally because of her pain can not do activities of daily living can not take care of herself and can not function normally. She is suffering from interstitial lung disease. She is on oxygen when she needs to move. She reports that back pain started 8 weeks ago. Shoulder pain lasted longer. She is retired individual. She reports that movements aggravate her pain. Topical heat and medications make her pain slightly better. She uses walker for ambulation. The pain is more severe in the morning and less aggravated in the afternoon. In terms of tissue damage he reports her pain is jumping, flushing, shooting, pinching, cramping, crushing, dull, hurting, heavy, tiring, exhausting, spreading, radiating, piercing. She has a pacemaker implanted and she can not go for MRI. She recently had x-ray and those were x-rays of the lumbar spine and pelvis. She had multiple extra calcification in the projection of the bilateral trochanteric bursae. Her sacroiliac joints on the x-ray are unremarkable. The lumbar x-ray is evident of spondylosis of the lumbar spine. However the x-rays were not read officially. She never had physical therapy but she attended chiropractic manipulations with local chiropractor and received no pain relief. She is unlikely a good candidate for physical therapy because she is oxygen dependent. Her past medical history significant for hypertension headaches complete heart block crest syndrome and interstitial lung disease. Her past surgical history significant for pacemaker implant and admission and discharge at [facility]. Social history she is retired individual she stopped smoking cigarettes 30 years ago. She denies drinking alcohol she denies coffee caffeinated beverages she denies recreational drugs. [facility] Medical History Lower thoracic back pain Bifascicular block Supplemental oxygen dependent CREST (calcinosis, Raynaud's phenomenon, esophageal dysfunction, sclerodactyly, telangiectasia) Dyspnea on exertion Pericardial effusion Complete heart block Hypothyroid Enlarged thyroid Hypertension Multinodular thyroid Telangiectasia Dysphagia Surgical History Status post cardiac pacemaker procedure S/P cardiac cath S/P tooth extraction Hx of colonoscopy H/O breast biopsy Family History Father Heart disease Sister Ovarian cancer Brother Heart attack Stroke Mother Thyroid disease Brother Asthma Social History Household Members: Spouse Housing: House Do you presently have visiting nurse or other home services: Yes ([facility] ,[place]) Alcohol intake: never Patient Tobacco Use Status: Former Tobacco user Tobacco use type: Cigarette Years Smoked: 20 +/- e-Cigarette/Vaping Use: Never Used Second Hand Smoke Exposure: Yes Advance Directives Date on File: 02/13/24 service: No Current occupational status: retired 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 Cognitive needs: No Hearing needs: No Vision needs: No Review of Systems Const All systems reviewed & are unremarkable except as noted in HPI and below ENT Reports Normal hearing present Neuro Reports Normal hearing present, Denies Abnormal speech present, Denies confusion and Denies Sensory deficit (Neuro) Psych Denies confusion Physical Exam Vital Signs: Last Vital Signs Pulse 96 06/08/24 14:34 Resp 14 06/08/24 14:34 BP 139/67 06/08/24 14:34 Pulse Ox 93 06/08/24 14:34 Oxygen Delivery Method Nasal Cannula 10/09/24 14:34 Oxygen Flow Rate 2 06/08/24 14:34 BMI result Body Mass Index 31.9 Const General: no acute distress; No confusion Nutritional Appearance: well nourished Orientation/consciousness: patient oriented x3 and No confusion Limitations: no limitations Eyes General: appearance normal, both eyes and all related structures Pupils: Equal, round and reactive pupils present EOM: EOMs intact bilaterally Neck Neck: Yes full ROM Chest Chest palpation & inspection: normal inspection of the chest Resp Effort & Inspection: normal respiratory effort, able to speak in complete sentences, normal respiratory pattern, no audible wheezes and no cough Cardio Jugular venous distension: no JVD GI Inspection: Yes normal to inspection Back/Spine/Pelvis Other: Tenderness on palpation in the projection of approximately T10-T11 thoracic vertebras. No significant tenderness on palpation on the projection of spinal processes below that level. Loading test is positive bilaterally. SLR is negat nilda bilaterally. Brandon test is negative bilaterally. Gaenslen test is negative bilaterally. Stinchfield test is negative bilaterally. Moderate tenderness on palpation in projection of bilateral sacroiliac joints. Negative pain in the groins with lateral and medial rotation of the bilateral hip/femoral bones. Neuro General: patient oriented x3, gait normal and No confusion Cranial nerves: Yes CN's II-XII intact bilaterally, Yes Equal, round and reactive pupils present, Yes Normal hearing present and Yes Ability to bilaterally elevate shoulders present Speech: No Abnormal speech present Gait exam (Neuro): Normal gait present Motor exam (neuro): 5/5 motor strength present throughout Sensory Exam: No Sensory deficit (Neuro) Extrem General: No pedal edema Psych Speech and movement: Normal speech and movement present Affect: normal affect Attitude: cooperative Thought process: Normal thought process present Thought content: Normal thought content present Insight: Good insight present (Psych) Judgement: Good judgement present (Psych) Results Reviewed Results Reviewed: I personally reviewed the x-rays of this patient lumbar spine and it demonstrated spondylosis of the lumbar spine, no compression fracture of the exposed T11-T12 vertebra noted. The ossified lesions in the projection of the bilateral trochanteric bursae of this patient. Assessment & Plan Assessment & Plan (1) Dorsalgia of cervicothoracic region: Code(s): M54.2 - Cervicalgia; M54.6 - Pain in thoracic spine Category: Medical (2) Spondylosis of lumbar region without myelopathy or radiculopathy: Code(s): M47.816 - Spondylosis without myelopathy or radiculopathy, lumbar region Category: Medical (3) CREST syndrome: Code(s): M34.1 - CR(E)ST syndrome Category: Medical (4) ILD (interstitial lung disease): Code(s): J84.9 - Interstitial pulmonary disease, unspecified Category: Medical (5) Lower thoracic back pain: Code(s): M54.6 - Pain in thoracic spine Category: Medical Plan 1. To assess fully the extent of the severe tenderness on palpation in thoracic spine I will send this patient for the x-ray of the thoracic spine three views. 2. I will schedule this patient for bilateral diagnostic medial branch block L3- L4 does ramus L5. I will see this patient soon after the procedure. 3. She is scheduled an appointment with a new assistant to the ceo. I suggested that she would discuss treatment with steroids for her crest syndrome. At 73 years old this will promote osteoporosis and wreck havoc on her endocrine system. My personal choices would be cyclobenzaprine or methotrexate however it is up to the assistant to the ceo to decide. Plasmapheresis is also maybe a better choice than chronic steroid therapy for this 73 years old. Orders: Orders XR thoracic spine 3V Today M54.2 - Cervicalgia, M54.6 - Pain in thoracic spine Patient Instructions: I here by testify that I spent 45 minutes in conversation with this patient and her daughter who was present with us during the appointment as well as evaluating her x-rays prior records planning her care and organizing this note. Coding Level of Care Code New Pt Level 4 (14916) Diagnoses Dorsalgia of cervicothoracic region M54.2; M54.6 Spondylosis of lumbar region without myelopathy or radiculopathy M47.816 CREST syndrome M34.1 ILD (interstitial lung disease) J84.9 Lower thoracic back pain M54.6
[2024-06-08 14:34] VITALS: BP 139/67; PULSE 96; RESP 14; O2SAT 93; BMI 31.9
== END 2024-06-08 14:57 | disposition home or self-care (01) ==
PROVIDERS: PCP Physician Assistant; Visit Provider Anesthesiology
DX: M54.2 Cervicalgia (principal); M54.6 Pain in thoracic spine; M47.816 Spondylosis without myelopathy or radiculopathy, lumbar region; M34.1 CR(E)ST syndrome; J84.9 Interstitial pulmonary disease, unspecified
CPT/HCPCS: 99204

== ENCOUNTER 2024-06-16 10:59 | Outpatient (AMB) | payer MEDICARE, OTHER, SELFPAY ==
--- NOTE | 2024-06-16 11:32 | MHC.OFFVIS ---
Vital Signs 06/16/24 11:33 Pulse 75 Pulse Source Pulse Oximeter Pulse Oximetry (%) 99 Oxygen Delivery Method Room Air Intake Visit Reasons: 6 min walk Allergies codeine Allergy (Severe, Verified 06/16/24 11:39) felt like going to propranolol Allergy (Intermediate, Verified 06/16/24 11:39) dizziness Seasonal Allergies Allergy (Intermediate, Verified 06/16/24 11:39) Sneezing, vertigo PFSH Medical History Lower thoracic back pain Bifascicular block Supplemental oxygen dependent CREST (calcinosis, Raynaud's phenomenon, esophageal dysfunction, sclerodactyly, telangiectasia) Dyspnea on exertion Pericardial effusion Complete heart block Hypothyroid Enlarged thyroid Hypertension Multinodular thyroid Telangiectasia Dysphagia Surgical History Status post cardiac pacemaker procedure S/P cardiac cath S/P tooth extraction Hx of colonoscopy H/O breast biopsy Family History Father Heart disease Sister Ovarian cancer Brother Heart attack Stroke Mother Thyroid disease Brother Asthma Social History Household Members: Spouse Housing: House Do you presently have visiting nurse or other home services: Yes ([facility] ,[place]) Alcohol intake: never Patient Tobacco Use Status: Former Tobacco user Tobacco use type: Cigarette Years Smoked: 20 +/- e-Cigarette/Vaping Use: Never Used Second Hand Smoke Exposure: Yes Advance Directives Date on File: 02/13/24 service: No Current occupational status: retired 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 spo2 stayed at 94%, HR increased from 75 to 125 at which point pt had to rest due to dyspnea. [id number] - 6 Minute Walk Assessment & Plan Assessment & Plan (1) ILD (interstitial lung disease): Code(s): J84.9 - Interstitial pulmonary disease, unspecified Category: Medical Plan: 6 minute walk test/supplemental oxygen evaluation performed. Patient does not require supplemental oxygen to maintain normal oximetry with exertion at this time. Will recheck 6 minute walk in 6-8 weeks. Orders: Orders AMB 6 minute walk 06/16/24 J84.9 - Interstitial pulmonary disease, unspecified Coding Level of Care Code Established Pt Est Pt Level 1 (21126) Patient Type Established Diagnoses ILD (interstitial lung disease) J84.9 CPT Codes Coding ([id number]) Comment RN visit only
[2024-06-16 11:33] VITALS: PULSE 75; O2SAT 99
[2024-06-16 11:38] VITALS: PULSE 75; O2SAT 99
== END 2024-06-16 11:48 | disposition home or self-care (01) ==
PROVIDERS: PCP Internal Medicine; Visit Provider Internal Medicine Pulmonary Disease
DX: J84.9 Interstitial pulmonary disease, unspecified (principal)
CPT/HCPCS: 94618

== ENCOUNTER → 2024-06-16 10:59 | Outpatient (BNVA) | payer MEDICARE, OTHER, SELFPAY | PROVIDERS: PCP Internal Medicine; Visit Provider Internal Medicine Pulmonary Disease | DX: I05.0 Rheumatic mitral stenosis (principal); I27.20 Pulmonary hypertension, unspecified; J84.9 Interstitial pulmonary disease, unspecified; M34.1 CR(E)ST syndrome; M54.16 Radiculopathy, lumbar region; M81.0 Age-related osteoporosis without current pathological fracture; E55.9 Vitamin D deficiency, unspecified; Z79.52 Long term (current) use of systemic steroids | CPT/HCPCS: 94618; 99211; 99212 ==

== ENCOUNTER 2024-06-16 11:34 | Outpatient (AMB) | payer MEDICARE, OTHER, SELFPAY ==
--- NOTE | 2024-06-16 11:36 | MHC.OFFVIS ---
Vital Signs 06/16/24 11:40 Height 5 ft 3 in Weight 180 lb 5.41 oz BMI 31.9 BP 112/68 Blood Pressure Location Rt brachial Position Sitting Pulse 84 Pulse Source Pulse Oximeter Pulse Oximetry (%) 96 Oxygen Delivery Method Room Air Intake Visit Reasons: Crest/CM Intake Note: Patient presents for Crest. Allergies codeine Allergy (Severe, Verified 06/16/24 11:39) felt like going to propranolol Allergy (Intermediate, Verified 06/16/24 11:39) dizziness Seasonal Allergies Allergy (Intermediate, Verified 06/16/24 11:39) Sneezing, vertigo Medication List - Last Reconciled 06/16/24 by Mariah Burroughs MD acetaminophen (Tylenol) 650 mg PO QID PRN atorvastatin 40 mg PO DAILY calcium carbonate-vitamin D3 600 mg-20 mcg (800 unit) 1 tab PO DAILY furosemide 60 mg (1.5 x 40 mg) PO QAM 30 days levothyroxine 88 mcg PO DAILY meclizine (Dramamine (meclizine)) 25 mg PO BID PRN metoprolol succinate ER 50 mg PO BID omeprazole 40 mg PO DAILY prednisone 30 mg (3 x 10 mg) PO DAILY 30 days tramadol 50 mg PO BID PRN HPI Comments Details: This is a 73-year-old female with crest who presents for follow-up. She is s/p right and left heart catheterization. She was told that her mitral valve stenosis is not significant enough to warrant surgery at this time and it is to be monitored. She states that she had a 6 minute walk test today. She states that she was out of breath but her O2 sats did not drop. She states that she only uses her oxygen when she is outside walking. She generally does not use it at home. She states that prednisone 40 mg daily significantly helps her low back pain that shoots down her lower extremities. She never had pain or swelling in her hands, knees fingers or elbows. [facility] Medical History Lower thoracic back pain Bifascicular block Supplemental oxygen dependent CREST (calcinosis, Raynaud's phenomenon, esophageal dysfunction, sclerodactyly, telangiectasia) Dyspnea on exertion Pericardial effusion Complete heart block Hypothyroid Enlarged thyroid Hypertension Multinodular thyroid Telangiectasia Dysphagia Surgical History Status post cardiac pacemaker procedure S/P cardiac cath S/P tooth extraction Hx of colonoscopy H/O breast biopsy Family History Father Heart disease Sister Ovarian cancer Brother Heart attack Stroke Mother Thyroid disease Brother Asthma Social History Household Members: Spouse Housing: House Do you presently have visiting nurse or other home services: Yes ([facility] ,[place]) Alcohol intake: never Patient Tobacco Use Status: Former Tobacco user Tobacco use type: Cigarette Years Smoked: 20 +/- e-Cigarette/Vaping Use: Never Used Second Hand Smoke Exposure: Yes Advance Directives Date on File: 02/13/24 service: No Current occupational status: retired 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 Cognitive needs: No Hearing needs: No Vision needs: No Review of Systems Card Reports dyspnea on exertion Resp Reports dyspnea on exertion GI Reports heartburn Musc Reports back pain, Denies arthralgias, Denies joint swelling and Reports radiating pain into limb Physical Exam Vital Signs: Last Vital Signs Pulse 84 06/16/24 11:40 BP 112/68 06/16/24 11:40 Pulse Ox 96 06/16/24 11:40 Oxygen Delivery Method Room Air 06/16/24 11:40 BMI result Body Mass Index 31.9 Const General: cooperative, healthy appearing and comfortable Nutritional Appearance: obese Orientation/consciousness: patient oriented x3 Limitations: no limitations HEENT Other: Reduced mouth opening Head: Yes normocephalic and Yes atraumatic Mouth: moist mucous membranes Resp Effort & Inspection: normal respiratory effort and able to speak in complete sentences Auscultation: clear to auscultation bilaterally Cardio Rate: regular rate Rhythm: regular rhythm Skin Other: Numerous telangiectasias Neuro General: patient oriented x3 Extrem Other: Mild sclerodactyly No active synovitis Left ring finger with few dilated loops Fingertips are warm today Assessment & Plan Assessment & Plan (1) CREST (calcinosis, Raynaud's phenomenon, esophageal dysfunction, sclerodactyly, telangiectasia): Comment: dx 2021 (Raynaud's, sclerodactyly, telangiectasias, abnormal nailfold capillaroscopy, questionable esophageal dysmotility, +++ centromere) Code(s): M34.1 - CR(E)ST syndrome Category: Medical Plan: 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 Patient main complaint is dyspnea on exertion with seems to have improved with diuretics. She now uses oxygen only as needed when she is walking outside her house. Per conversation with barrel drainer, her right and left heart catheterization did not show any significant mitral stenosis that warrants surgery and at this time her mitral stenosis would be monitored. She did have however mild to moderate pulmonary hypertension. Of note patient has emphysematous changes as well as minimal changes of ILD. I think primary pulmonary hypertension should be looked into. I will refer patient to pulmonary hypertension specialist. Her Raynaud's has been well controlled. She is off amlodipine. It was discontinued by barrel drainer. Advised patient to continue with conservative measures for Raynaud's. Fluoxetine can be added in the future if needed Continue with omeprazole. She takes it 1 hour before supper Patient was initially prescribed prednisone by Pulmonary for her ILD, when when prednisone is tapered she starts having low back pain with radiculopathy symptoms as well as symptoms suggestive of trochanteric bursitis. There are no symptoms suggestive of inflammatory arthritis. Follow-up in 2 months . (2) Lumbar radiculopathy: Code(s): M54.16 - Radiculopathy, lumbar region Category: Medical Plan: She is on Tylenol, naproxen and tramadol. 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 Prednisone can certainly help with degenerative arthritis. I will order a bone density scan. Blood work before next visit in 2 months Plan I spent 30 minutes reviewing patient's chart, evaluating patient, placing orders, counseling patient and documenting in the chart Orders: Orders XR DEXA appendicular skeleton Today Z79.52 - longterm (current) use of systemic steroids Phosphorus Today M81.0 - Age-related osteoporosis without current pathological fracture Parathyroid Hormone Intact Today M81.0 - Age-related osteoporosis without current pathological fracture Comprehensive Met. Panel Today M81.0 - Age-related osteoporosis without current pathological fracture Collagen Type I C-Telopeptide Today M81.0 - Age-related osteoporosis without current pathological fracture Protein Electrophoresis, Serum Today M81.0 - Age-related osteoporosis without current pathological fracture Vitamin D 25-OH (D2 and D3) Today E55.9 - Vitamin D deficiency, unspecified TSH reflex Free T4 Today M81.0 - Age-related osteoporosis without current pathological fracture Referrals Pulmonology Referral I27.20 - Pulmonary hypertension, unspecified Coding Level of Care Code Est Pt Level 4 (68340) Complex EM visit Add On G2211 Diagnoses CREST (calcinosis, Raynaud's phenomenon, esophageal dysfunction, sclerodactyly, telangiectasia) M34.1 Lumbar radiculopathy M54.16 keno terminal operator systemic steroid user Z79.52
[2024-06-16 11:40] VITALS: BP 112/68; PULSE 84; O2SAT 96; BMI 31.9
== END 2024-06-16 12:11 | disposition home or self-care (01) ==
PROVIDERS: PCP Internal Medicine; Visit Provider Student in an Organized Health Care Education/Training Program
DX: M34.1 CR(E)ST syndrome (principal); M54.16 Radiculopathy, lumbar region; Z79.52 Long term (current) use of systemic steroids
CPT/HCPCS: 99214; G2211

== ENCOUNTER 2024-07-01 14:14 | Outpatient (REF) | payer MEDICARE, OTHER, SELFPAY ==
--- NOTE | ~2024-07-01 | MM_ITS ---
EXAMINATION: BONE DENSITOMETRY CLINICAL INDICATION: Long-term (current) use of systemic steroids. COMPARISON: This is the patient's baseline examination. TECHNIQUE: Using a [employer] DXA System (software version: 13.1) manufactured by [employer], dual-energy x-ray absorptiometry was performed of the lumbar spine, left hip and left forearm radius 33%. The images are of good technical quality. Summary results are attached. FINDINGS: AP SPINE L1-L4: BMD 1.308 g/cm2, Z-score 2.2, T-score 1.1, normal. LEFT FEMUR, NECK: BMD 0.734 g/cm2, Z-score -0.7, T-score -2.2, osteopenia. LEFT FEMUR, TOTAL: BMD 0.875 g/cm2, Z-score 0.2, T-score -1.1, osteopenia. LEFT FOREARM RADIUS 33%: BMD 0.902 g/cm2, Z-score 2.4, T-score 0.3, normal. IDENTIFIED RISK FACTORS: Menopause. Chronic glucocorticoids. HISTORY OF FRACTURE: None listed. MEDICATIONS: Calcium supplement and/or multivitamin. Vitamin D. MM/XR DEXA appendicular skeleton IMPRESSION: 1. DIAGNOSIS: Osteopenia based on the lowest T-score value of -2.2 in the femoral neck applying World Health Organization criteria. 2. 10-YEAR FRACTURE RISK PREDICTION, FRAX: Major osteoporotic fracture (clinical spine, forearm, hip or shoulder) 20.8%. Hip fracture 6.1%. 3. Treatment Recommendations: NOF guidelines recommend consideration for treatment in postmenopausal women and men age 50 and older presenting with the following: -A hip or vertebral (clinical or morphometric) fracture. -T-score less than or equal to -2.5 at the femoral neck or spine after appropriate evaluation to exclude secondary causes. -Low bone mass at the hip or spine and a 10-year fracture probability by FRAX of greater than or equal to 3% for hip fracture or greater than or equal to 20% for major osteoporotic fracture based on the [place] adapted WHO algorithm. 4. Other Recommendations: All treatment decisions require clinical judgment and consideration of individual patient factors, including patient preferences, comorbidities, previous drug use, risk factors not captured in the FRAX model (e.g. frailty, falls, vitamin D deficiency, increased bone turnover, interval significant decline in bone density) and possible under or overestimation of fracture risk by FRAX. Additional medical evaluation for secondary cause of low bone mineral density may be appropriate. FUTURE SCAN RECOMMENDATION: People with diagnosed cases of osteoporosis or at high risk for fracture should have regular bone mineral density tests. For patients eligible for Medicare, routine testing is allowed once every 2 years. The testing frequency can be increased to one year for patients who have rapidly progressing disease, those who are receiving or discontinuing medical therapy to restore bone mass, or have additional risk factors. Electronically signed by: Sofie Mccord MD 07/04/2024 09:[address]
== END 2024-07-01 14:15 | disposition home or self-care (01) ==
LOC: HO.MAMMO 14:14
PROVIDERS: PCP Internal Medicine; Visit Provider Student in an Organized Health Care Education/Training Program
DX: Z13.820 Encounter for screening for osteoporosis (principal); Z79.52 Long term (current) use of systemic steroids
CPT/HCPCS: 77081

== ENCOUNTER 2024-07-06 14:01 | Outpatient (AMB) | payer MEDICARE, OTHER, SELFPAY ==
--- NOTE | 2024-07-06 14:01 | A.OFFPC_ITS ---
Intake Visit Reasons: DJD/ Referral Intake Note: Patient is here to follow up on DJD, requesting referral for pain management (does not want [facility]). Coal Washer Tender Required: No Animal Rescuer: Not Required per policy Accompanied by: Self / Same As Patient Allergies codeine Allergy (Severe, Verified 07/06/24 14:29) felt like going to propranolol Allergy (Intermediate, Verified 07/06/24 14:29) dizziness Seasonal Allergies Allergy (Intermediate, Verified 07/06/24 14:29) Sneezing, vertigo Medication List - Last Reconciled 07/06/24 by Hank Ochoa MD acetaminophen (Tylenol) 650 mg PO QID PRN atorvastatin 40 mg PO DAILY calcium carbonate-vitamin D3 600 mg-20 mcg (800 unit) 1 tab PO DAILY furosemide 60 mg (1.5 x 40 mg) PO QAM 30 days levothyroxine 88 mcg PO DAILY meclizine (Dramamine (meclizine)) 25 mg PO BID PRN metoprolol succinate ER 50 mg PO BID omeprazole 40 mg PO DAILY prednisone 20 mg PO DAILY tramadol 50 mg PO BID PRN Tobacco use date assessed: 05/25/24 Fall risk assessment: No Falls in past year Last assessed Fall Risk: 07/06/24 Dental Screening Dental Screen Date: 10/22/23 HPI DJD/ Referral HPI Details 73-year-old female wishes to discuss her medical health via tele health. Patient's general condition is improving. Continues to have discomfort in her back. Patient had an exacerbation of her shortness of breath and her prednisone was increased to 20 mg daily. She underwent a 6 minute walk test at the pellet post inspector office and did not have to use her oxygen. Patient also were seen at the medical data analyst for the crest syndrome. In conjunction with the claims service adjustor it was decided that her symptoms of shortness of breath were not arising from the heart, but she could have pulmonary hypertension. An appointment has been scheduled with a specialist for the same in July. Patient is compliant with medications. She is not using a walker at home to ambulate. Does admit she is having poor tone in her lower extremity. Patient reports that her mood has improved and is able to take interest in her activities of daily living. [facility] Medical History Lower thoracic back pain Bifascicular block Supplemental oxygen dependent CREST (calcinosis, Raynaud's phenomenon, esophageal dysfunction, sclerodactyly, telangiectasia) Dyspnea on exertion Pericardial effusion Complete heart block Hypothyroid Enlarged thyroid Hypertension Multinodular thyroid Telangiectasia Dysphagia Surgical History Status post cardiac pacemaker procedure S/P cardiac cath S/P tooth extraction Hx of colonoscopy H/O breast biopsy Family History Father Heart disease Sister Ovarian cancer Brother Heart attack Stroke Mother Thyroid disease Brother Asthma Social History Household Members: Spouse Housing: House Do you presently have visiting nurse or other home services: Yes (VNA ,PT) Alcohol intake: never Patient Tobacco Use Status: Former Tobacco user Tobacco use type: Cigarette Years Smoked: 20 +/- e-Cigarette/Vaping Use: Never Used Second Hand Smoke Exposure: Yes Advance Directives Date on File: 02/13/24 service: No Current occupational status: retired 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 Carson Quiles, Malinda Morales, Tang Awad and colleagues, with an educational kevin from [employer]. Physical exam (Primary Care) Tobacco/Smoking Status: Tobacco use Status Tobacco use date assessed 05/25/24 07/06/24 14:03 Patient Tobacco Use Status Former Tobacco user 07/06/24 14:03 Tobacco use type Cigarette 07/06/24 14:03 e-Cigarette/Vaping Use Never Used 07/06/24 14:03 Thrive Assessment: Date of Thrive Assessment Date Thrive assessed 02/14/24 07/06/24 14:03 Const General: cooperative and healthy appearing Nutritional Appearance: well nourished Orientation/consciousness: patient oriented x3 Limitations: no limitations HENMT Head: Yes normal to inspection Eyes General: appearance normal, both eyes and all related structures Neck Neck: Yes normal visual inspection Chest Chest palpation & inspection: normal palpation of entire chest wall Resp Effort & Inspection: normal respiratory effort Neuro General: patient oriented x3 Telehealth Telehealth Telehealth Platform: [employer] Location of provider rendering services: practice address Location of patient: address on file Patient Identification confirmed using: Name, : Yes Telehealth method: voice only Patient verbally consented to treatment: Yes Patient verbally consented to billing insurance company: Yes Patient informed of any privacy concerns related to visit: Yes Minutes spent on Phone/Video with Pt.: 20 Coding Level of Care Code Tele Est Pt Level 4 (66535) Diagnoses Lower thoracic back pain M54.6 Assessment & Plan Assessment & Plan (1) Lower thoracic back pain: Code(s): M54.6 - Pain in thoracic spine Category: Medical Plan: Continue current pain management including tramadol twice a day. Patient has a follow-up with pellet post inspector in a few weeks. Should her breathing continue to be stable, an attempt will be made to decrease the prednisone. Encouraged her to keep the appointment with the consumer services consultant regarding pulmonary hypertension. No MRIs are scheduled at the moment physical therapy will be ordered to improve the strength in her lower extremities. Orders: Orders PT Evaluation and Treatment Today Hank Ochoa MD M54.6 - Pain in thoracic spine Medications: Changed From prednisone 30 mg (3 x 10 mg) PO DAILY 30 days 90 tabs 1RF To prednisone 20 mg PO DAILY Pancho Monson MD
== END 2024-07-06 15:43 | disposition home or self-care (01) ==
LOC: HO.HMCH 14:01
PROVIDERS: PCP Internal Medicine; Visit Provider Internal Medicine
DX: M54.6 Pain in thoracic spine (principal)

== ENCOUNTER → 2024-07-06 14:01 | Outpatient (BNVA) | payer MEDICARE, OTHER, SELFPAY | PROVIDERS: PCP Internal Medicine; Visit Provider Internal Medicine ==

== ENCOUNTER 2024-08-08 12:23 | Outpatient (AMB) | payer MEDICARE, OTHER, SELFPAY ==
--- NOTE | 2024-08-08 16:24 | A.OFFVIS_ITS ---
Intake Visit Reasons: device ck Allergies codeine Allergy (Severe, Verified 07/06/24 14:29) felt like going to propranolol Allergy (Intermediate, Verified 07/06/24 14:29) dizziness Seasonal Allergies Allergy (Intermediate, Verified 07/06/24 14:29) Sneezing, vertigo PFSH Medical History Lower thoracic back pain Bifascicular block Supplemental oxygen dependent CREST (calcinosis, Raynaud's phenomenon, esophageal dysfunction, sclerodactyly, telangiectasia) Dyspnea on exertion Pericardial effusion Complete heart block Hypothyroid Enlarged thyroid Hypertension Multinodular thyroid Telangiectasia Dysphagia Surgical History Status post cardiac pacemaker procedure S/P cardiac cath S/P tooth extraction Hx of colonoscopy H/O breast biopsy Family History Father Heart disease Sister Ovarian cancer Brother Heart attack Stroke Mother Thyroid disease Brother Asthma Social History Household Members: Spouse Housing: House Do you presently have visiting nurse or other home services: Yes (VNA ,PT) Alcohol intake: never Patient Tobacco Use Status: Former Tobacco user Tobacco use type: Cigarette Years Smoked: 20 +/- e-Cigarette/Vaping Use: Never Used Second Hand Smoke Exposure: Yes Advance Directives Date on File: 02/13/24 service: No Current occupational status: retired 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 Battery life 11.9 years. V paced 100%. No new alerts. 13546-HS Cardiac Device Check, pacemaker dual lead Procedure code (CPT) selection complete Assessment & Plan Assessment & Plan (1) S/P placement of cardiac pacemaker: Comment: Medtronic dual-chamber pacemaker for complete heart block 12/2023 Code(s): Z95.0 - Presence of cardiac pacemaker Category: Surgical Plan Orders: Orders AMB Cardiac Device Follow-up Today I48.0 - Paroxysmal atrial fibrillation Coding Level of Care Code Procedure Only Diagnoses S/P placement of cardiac pacemaker Z95.0 CPT Codes Cardiac Device Check - Cardiac Device 2: [id number]-[id number] Cardiac Device Check, pacemaker dual lead ([id number])
--- OUTSIDE RECORDS SUMMARY | 2024-08-10 15:27 | XMS_ITS | Continuity of Care Document ---
Author Organization [facility] ter Address [address] [place] [address]- Care Team Providers Care Lens Shaper Grinder Name Role Phone Don MARION, Hank Benoit Primary Care Physic hernando Encounter [facility] Date(s): 07/21/24 - 07/21/[address] [address] Discharge Disposition: A-D/C Home Attending Physician: Ambrocio Shaffer DO Admitting Physician: Ambrocio Shaffer DO Referring Physician: Aidan MARION, [facility] Encounter Type: Disch Daystay Allergies, Adverse Reactions, Alerts Substance Criticality Severity Reaction Reaction Severity Status codeine Active propranolol Active Immunizations Given and Recorded Vaccine Date Status Refusal Reason [id number] 12y+ bivalent booster vax 09/08/22 Recorded influenza virus vaccine, inactivated 07/07/22 Ced rded influenza virus vaccine, inactivated 08/26/21 Ced rded influenza virus vaccine, inactivated 06/13/20 Ced rded influenza virus vaccine, inactivated 07/07/19 Ced rded influenza virus vaccine, inactivated 07/15/18 Ced rded influenza virus vaccine, inactivated 06/17/16 Ced rded influenza virus vaccine, inactivated 05/16/15 Ced rded influenza virus vaccine, inactivated 07/04/14 Ced rded influenza virus vaccine, inactivated 10/27/13 Ced rded SARS-CoV-2 (COVID-19) mRNA-1273 vaccine 08/26/21 R ecorded SARS-CoV-2 (COVID-19) mRNA-1273 vaccine 12/07/20 R ecorded SARS-CoV-2 (COVID-19) mRNA-1273 vaccine 11/09/20 R ecorded Zoster Vaccine Live 07/04/14 Recorded tetanus-diphtheria toxoids (Td) 08/31/03 Recorded Medications atorvastatin 40 mg oral tablet 1 tablet = 40 mg, By Mouth, Daily at bedtime, # 30 tablet, 2 Refills, Maintenance, 12/31/23 2:19:00 PM EDT, Tablet, [facility] 3, Partial fill upon patient request if the prescription is for a schedule II opioid drug., 159, cm, 12/31/23 7:50:00 EDT, Height, 84.6, kg, 12/17/23 8:19:00 EDT,Dry Weight Start Date: 12/31/23 Status: Ordered Quantity: 30.0 Unit: tablet Repeat number: 3 calcium-vitamin D 250 mg-200 intl units oral tablet 1 tablet, By Mouth, 2 times a day, 0 Refills, Maintenance, 07/21/24 12:58:00 PM EST, Partial fill upon patient request if the prescription is for a schedule II opioid drug. Start Date: 07/21/24 Status: Ordered Repeat number: 1 furosemide 40 mg oral tablet 40 mg, 1, tablet, By Mouth, Daily, # 90 tablet, Refills 0, Maintenance, 05/27/24 10:25:00 AM EDT, Partial fill upon patient request if the prescription is for a schedule II opioid drug. Start Date: 05/27/24 Status: Ordered Quantity: 90.0 Unit: tablet Repeat number: 1 levothyroxine 0.088 mg oral tablet 1 tablet = 88 mcg, By Mouth, Daily, # 30 tablet, 0 Refills, Maintenance, 07/12/24 4:10:00 PM EST, Tablet, Partial fill upon patient request if the prescription is for a schedule II opioid drug. Start Date: 07/12/24 Status: Ordered Quantity: 30.0 Unit: tablet Repeat number: 1 loratadine 10 mg oral tablet 10 mg, 1, tablet, By Mouth, Daily, Refills 0, Maintenance, 04/26/24 2:17:00 PM EDT, Partial fill upon patient request if the prescription is for a schedule II opioid drug. Start Date: 04/26/24 Status: Ordered Repeat number: 1 magnesium oxide 200 mg oral tablet 1 tablet = 200 mg, By Mouth, Daily, 0 Refills, Maintenance, 04/26/24 2:13:00 PM EDT, Partial fill upon patient request if the prescription is for a schedule II opioid drug. Start Date: 04/26/24 Status: Ordered Repeat number: 1 meclizine 25 mg oral tablet 1 tablet = 25 mg, By Mouth, 3 times a day, PRN, 0 Refills, Maintenance, 10/31/22 7:12:00 AM EST, Partial fill upon patient request if the prescription is for a schedule II opioid drug. Start Date: 10/31/22 Status: Ordered Repeat number: 1 melatonin 5 mg oral tablet 1 tablet = 5 mg, By Mouth, Daily at bedtime, 0 Refills, Maintenance, 04/26/24 2:12:00 PM EDT, Partial fill upon patient request if the prescription is for a schedule II opioid drug. Start Date: 04/26/24 Status: Ordered Repeat number: 1 metoprolol 50 mg oral tablet 50 mg, 1, tablet, By Mouth, 2 times a day, # 60 tablet, Refills 0, Maintenance, 05/11/24 2:10:00 PM EDT, Partial fill upon patient request if the prescription is for a schedule II opioid drug. Start Date: 05/11/24 Status: Ordered Quantity: 60.0 Unit: tablet Repeat number: 1 Naproxen By Mouth, 0 Refills, Maintenance, 05/11/24 2:10:00 PM EDT, Partial fill upon patient request if the prescription is for a schedule II opioid drug. Start Date: 05/11/24 Status: Ordered Repeat number: 1 omeprazole 40 mg oral enteric coated capsule 1 capsule = 40 mg, By Mouth, Daily, 0 Refills, Maintenance, 04/26/24 2:09:00 PM EDT, Partial fill upon patient request if the prescription is for a schedule II opioid drug. Start Date: 04/26/24 Status: Ordered Repeat number: 1 predniSONE 20 mg oral tablet 1 tablet = 20 mg, By Mouth, Daily, # 10 tablet, 0 Refills, Maintenance, 07/12/24 4:11:00 PM EST, Tablet, Partial fill upon patient request if the prescription is for a schedule II opioid drug. Start Date: 07/12/24 Status: Ordered Quantity: 10.0 Unit: tablet Repeat number: 1 traMADol 50 mg oral tablet 1 tablet = 50 mg, By Mouth, Every 12 hours, 0 Refills, Maintenance, 05/27/24 10:24:00 AM EDT, Tablet, Partial fill upon patient request if the prescription is for a schedule II opioid drug. Start Date: 05/27/24 Status: Ordered Repeat number: 1 Tylenol 8 Hour 650 mg oral tablet, extended release 2 tablet = 1,300 mg, By Mouth, Every 8 hours, PRN Pain , Mild, # 24 tablet, 0 Refills, Maintenance,05/11/24 2:10:00 PM EDT, ER Tablet, Partial fill upon patient request if the prescription is for a schedule II opioid drug. Start Date: 05/11/24 Status: Ordered Quantity: 24.0 Unit: tablet Repeat number: 1 Problem List Condition Confirmation Course Effective Dates Status Health St atus Informant Obese class I Confirmed Active Vital Signs Most recent to oldest [Reference Range]: 1 2 3 Height 160.02 cm (07/21/24 1:07 PM) 160.02 cm (07/21/24 12:59 PM) Weight 81.5 kg (07/21/24 1:07 PM) 81.5 kg (07/21/24 12:59 PM) Oxygen Saturation [94-100 %] 100 % (07/21/24 3:56 PM) 100 % (07/21/24 3:15 PM) 98 % (07/21/24 12:30 PM) Pulse Rate [55-90 bpm] 76 bpm (07/21/24 3:56 PM) 85 bpm (07/21/24 3:15 PM) 81 bpm (07/21/24 12:30 PM) Blood Pressure [90-138/55-84 mm Hg] 137/87mm Hg (07/21/24 3:56 PM) 140/115mm Hg *H* (07/21/24 3:15 PM) 157/76mm Hg *H* (07/21/24 12:30 PM) Respiratory Rate [16-30 br/min] 13 br/min *L* (07/21/24 3:56 PM) 15 br/min *L* (07/21/24 3:15 PM) 18 br/min (07/21/24 12:30 PM) Temperature [96.8-100.4 DegF] 98.1 DegF (07/21/24 12:30 PM) Mode of Delivery (Oxygen) Room air (07/21/24 3:56 PM) Room air (07/21/24 3:15 PM) Room air (07/21/24 12:30 PM) Blood pressure sites Arm, left (07/21/24 3:56 PM) Arm, left (07/21/24 3:15 PM) Temperature Route Temporal (07/21/24 12:30 PM) Dry Weight 81.5 kg (07/21/24 12:59 PM) Social History Social History Type Response Smoking Status Former smoker, quit more than 30 days ago entered on: 05/11/24 Sex Sex Representation Female (finding) US Heart Transesophageal * Event Display: Trans-esophageal Echocardiogram Authored Date: [id number] Transesophageal Echocardiography Report (PABLO) Patient Demographics Patient Name DARNELL LEVINE Date of Study 07/21/2024 Corporate Gender Female Facility Race Ethnicity Date of 1950 Height: 62.99 inches Age 73 year(s) Weight: 178.58 pounds Accession Number [id number] BSA: 1.84 m2 Room Number PANX BMI: 31.64 kg/m2 Referring Physician Cristofer Bermudez MD Interpreting Ambrocio Shaffer DO Physician Job Tracer Fellow Mariah Doherty MD Indications Mitral valve disease, non-rheumatic. Study Data Type of Study PABLO procedure:PABLO with Doppler and Colorflow, 3D Rendering with post processing. Procedure Information:The procedure was explained in detail to the patient. Risk, complications and alternative treatments were reviewed. Written consent was obtained by the patient. After informed consent was obtained, the posterior pharynx was anesthetized with viscous/topical lidocaine . The esophagus was intubated without difficulty. Imaging was then commenced. The patient tolerated the procedure well. Study Date07/21/2024 Start Time: 03:24 PM Study Location: [facility] Study Status: PABLO Suite Patient Status: Routine Technical Quality: Adequate Blood Pressure:140/115 mmHg EKG: Normal sinus rhythm HR: 82 bpm PABLO Performed By: Ambrocio Shaffer DO Type of Anesthesia: Anesthesia administered by anesthesiologist. Allergies - Codeine. - Other allergy:(Propanalol). Doppler Measurements MV Mean Gradient: 6 mmHg TR Velocity:286 cm/s TR Gradient:32.72 mmHg Cardiac Anatomy Left Ventricle/Interventricular Septum The left ventricular systolic function is normal. There are no regional wall motion abnormalities. Left Atrium/Interatrial Septum The left atrium is dilated. There is no thrombus in the left atrium or left atrial appendage. The interatrial septum appears intact. Aortic Valve The aortic valve is trileaflet with mild valvular calcification. There is no aortic stenosis or insufficiency. Mitral Valve There is severe mitral annular calcification. The mitral valve leaflets are thickened. There is progressive mitral stenosis with gradient of 6 mm Hg at a HR of 74 bpm. The MVA is 2.5 cm2 by 3D planimetry. There is moderate mitral regurgitation. Aorta The ascending aorta is normal in size. There is moderate plaque in the descending aorta . Right Ventricle The right ventricle is normal in function. There is a pacemaker lead in the right ventricle. Right Atrium The right atrium is normal in size. Right atrial pacemaker lead is present. A device lead traverses the right atrium. Pulmonic Valve The pulmonic valve is grossly normal. There is trivial pulmonary regurgitation. Tricuspid Valve The tricuspid valve is grossly normal. There is trace tricuspid valve regurgitation. Pumonary Artery The pulmonary artery systolic pressure estimation is 33 mmHg in addition to CVP. Venous Structures There is systolic blunting of pulmonary venous flow. Pericardium/Extracardiac There is no pericardial effusion. Summary The left ventricular systolic function is normal. There are no regional wall motion abnormalities. The right ventricle is normal in function. There is a pacemaker lead in the right ventricle. There is severe mitral annular calcification. The mitral valve leaflets are thickened. There is progressive mitral stenosis with gradient of 6 mm Hg at a HR of 74 bpm. The MVA is 2.5 cm2 by 3D planimetry. There is moderate mitral regurgitation. Impressions Progressive calcific mitral stenosis w valve area of 2.5 cm2 by 3 D planimetry. Moderate mitral regurgitation. Comparison No prior PABLO study available for comparison. Signature * Event Display: Trans-esophageal Echocardiogram Authored Date: * Event Display: Trans-esophageal Echocardiogram Authored Date: Hospital Progress note * Michel Olivera RN: PERFORM, SIGN, VERIFY Event Display: Progress Note Hospital Authored Date: Patient: DARNELL LEVINE Age: 73 years Sex: Female : 1950 Associated Diagnoses: None Author: Michel Olivera RN Findings Narrative/Incidental Pt A/Ox4, returned to unit via strethcer, +gag reflex, tolerating PO diet, vitaLS STABLE, able to teach back d.c instrutions, R arm IV d/c'd catheter tip intact, wheeled off unit for d.c home.. * Ofelia Tovar RN: PERFORM, SIGN, VERIFY Event Display: Progress Note Hospital Authored Date: Patient: DARNELL LEVINE Age: 73 years Sex: Female : 1950 Associated Diagnoses: None Author: Ofelia Tovar RN Findings Narrative/Incidental patient arrived to unit for PABLO. A&Ox4, VSS. has been NPO and accompanied by her . home med review and MDS assessment completed. IV to the R AC. call lazaro in reach and ready for procedure.. Note * Michel Olivera RN: PERFORM Event Display: Discharge/Transfer Note Hospital Authored Date: Nursing Discharge Note Entered On: 07/21/2024 17:01 EST Performed On: 07/21/2024 17:01 EST by Michel Olivera RN Nursing Discharge Note 2 Discharge Time : 07/21/2024 16:43 EST Discharge Level of Care at Discharge : Home/Intermediate/Foster Care Patient Left Unit Via : Wheelchair Patient Accompanied Off Unit with : Responsible adult DC Instructions Provided & Signed by Pt : Yes Patient Understands D/C Instructions : Yes Patient Instructions Discharge Signed : Yes Did Pt have Specialty Bed or Wound Vac : No Michel Olivera RN - 07/21/2024 17:01 EST Patient Care team information Care Team Personnel Name: Lazara Cowan RN Position: S RN Member Role: Primary Care Nurse Name: Jud Ochoa Position: S RN Supv Member Role: Primary Care Nurse Name: Kris Leigh MD Position: [facility] Physician (General Medicine) Member Role: Lifetime Consulting Physician Address: [address] [place] [address]- Telecom: Name: Oly Garcia RN Position: [facility] RN Member Role: Primary Care Nurse Name: Doyle Pacheco RN Position: [facility] RN Member Role: Primary Care Nurse Name: Monik Betancourt Position: [facility] Outreach Member Role: Lifetime Consulting Physician Name: Yoly Carr RN Position: [facility] RN Member Role: Primary Care Nurse Name: Michel Olivera RN Position: [facility] RN Member Role: Primary Care Nurse Name: Jacqui Alcala RN Position: [facility] RN Member Role: Primary Care Nurse Name: Don MARION, Hank Benoit Position: Reference Physician Member Role: PCP Address: [address] [place] [address] [address] [place] [address]- Telecom: Care Team Related Persons Name: GRACIELA FELIZ Insurance Providers Guarantor name: DARNELL LEVINE Health Plan Information #: 2 Payer: [facility] Member Number: [id number] Policy Number: NA Group Number: [id number] Health Plan Information #: 1 Payer: MEDICARE PART B OUTPT Member Number: [id number] Policy Number: NA Group Number: NA
--- OUTSIDE RECORDS SUMMARY | 2024-08-10 15:27 | XMS_ITS | Clinical Summary ---
Author Organization Unknown Care Team Providers Care Loft Patternmaker Name Role Phone REJI MARION, HELEN Unavailable Unavailab debbie VILLALOBOS LPN, BERKLEY Unavailable Unavailable JUNIOR WILLOW MACHINE OPERATOR, ROBERT Unavailable Unavailable STEVEN RN, MARTINE Unavailable Unavailable FRANCISCO JAVIER PT, MARY ELLEN Unavailable Unavailable Payers Payer Name Policy Type Policy Number Effective Date Expira tion Date MEDICARE.NGS.PDGM [id number] Problems Condition Name Condition Details Condition Category Status Onset Date Resolution Date Last Treatment Date Treating Clinician Comments HYPERTENSIVE HEART DISEASE WITH HEART FAILURE Active 04-27 00:00: 00 HEART FAILURE, UNSPECIFIED Active 04-27 00:00: 00 CHRONIC RESPIRATORY FAILURE WITH HYPOXIA Active 02-24 00:00: 00 OTHER CHRONIC PAIN Active 04-27 00:00: 00 DORSALGIA, UNSPECIFIED Active 04-27 00:00: 00 CR(E)ST SYNDROME Active 02-10 00:00: 00 HYPOGLYCEMIA , UNSPECIFIED Active 08-31 00:00: 00 HYPOTHYROIDI SM, UNSPECIFIED Active 08-31 00:00: 00 HYPERLIPIDEM IA, UNSPECIFIED Active 08-31 00:00: 00 MORBID (SEVERE) OBESITY DUE TO EXCESS CALORIES Active 08-31 00:00: 00 INSOMNIA, UNSPECIFIED Active 08-31 00:00: 00 LESION OF SCIATIC NERVE, UNSPECIFIED LOWER LIMB Active 08-31 00:00: 00 ATRIOVENTRIC ULAR BLOCK, COMPLETE Active 08-31 00:00: 00 CARE HOME (CURRENT) USE OF INHALED STEROIDS Active 08-31 00:00: 00 PERSONAL HISTORY OF COVID-19 Active 12-31 00:00: 00 PRESENCE OF CARDIAC PACEMAKER Active 12-31 00:00: 00 CARE HOME (CURRENT) USE OF SYSTEMIC STEROIDS Active 08-31 00:00: 00 PERSONAL HISTORY OF NICOTINE DEPENDENCE Active 08-31 00:00: 00 Allergies, Adverse Reactions, Alerts Allergy Name Allergy Type Status Severity Reaction(s) Onset Date Inactive Date Treating Clinician Comments CODEINE Propensity to adverse reactions Active 2023-11 15:34:4 3 Medications Ordered Medication Name Filled Medication Name Start Date Stop Date Current Medication? Ordering Clinician Indication Dosage Frequency Signature (SIG) Comments Components prednisone 10 mg tablet 12-07 00:00: 00 12-31 00:00 :00 No [id number] Per instruc tions Per instructio ns (route: oral) Med Classific ation: Endocrine hydrochloro thiazide 25 mg tablet 11-26 00:00: 00 02-14 23:59 :00 No [id number] LOWERS BLOOD PRESSURE 1 tablet DAILY 1 tablet DAILY (route: oral) Med Classific ation: Cardiovas cular Therapy Agents levothyroxi ne 75 mcg capsule 11-25 00:00: 00 02-24 23:59 :00 No [id number] HYPOTHYROID 1 capsule DAILY 1 capsule DAILY (route: oral) Med Classific ation: Endocrine acetaminoph en 500 mg tablet 12-31 00:00: 00 Yes [id number] PAIN 2 tablet 2 TIMES DAILY 2 tablet 2 TIMES DAILY (route: oral) Med Classific ation: Analgesic , Anti-infl ammatory or Antipyret ic albuterol sulfate HFA 90 mcg/actuati on aerosol inhaler 12-31 00:00: 00 Yes [id number] SOB/WHEEZIN G 2 puff EVERY 6 HOURS 2 puff EVERY 6 HOURS (route: inhalation ) Med Classific ation: Respirato ry Therapy Agents atorvastati n 40 mg tablet 12-31 00:00: 00 Yes [id number] LOWERS CHOLESTEROL 1 tablet BEDTIME 1 tablet BEDTIME (route: oral) Med Classific ation: Cardiovas cular Therapy Agents cyanocobala min (vit B-12) 1,000 mcg tablet 12-31 00:00: 00 Yes [id number] SUPPLEMENT 1 tablet DAILY 1 tablet DAILY (route: oral) Med Classific ation: Electroly te Balance-N utritiona l Products ibuprofen 600 mg tablet 12-31 00:00: 00 Yes [id number] PAIN 1 tablet 3 TIMES DAILY 1 tablet 3 TIMES DAILY (route: oral) Med Classific ation: Analgesic , Anti-infl ammatory or Antipyret ic meclizine 25 mg tablet 12-31 00:00: 00 02-24 23:59 :00 No [id number] DIZZINESS 1 tablet 3 TIMES DAILY 1 tablet 3 TIMES DAILY (route: oral) Med Classific ation: Gastroint estinal Therapy Agents metoprolol succinate ER 25 mg tablet,exte nded release 24 hr 12-31 00:00: 00 02-28 23:59 :00 No [id number] LOWERS BLOOD PRESSURE 1 tablet DAILY 1 tablet DAILY (route: oral) Med Classific ation: Cardiovas cular Therapy Agents naproxen sodium 220 mg capsule 12-31 00:00: 00 04-27 23:59 :00 No [id number] PAIN MANAGEMENT 1 capsule DAILY 1 capsule DAILY (route: oral) Med Classific ation: Analgesic , Anti-infl ammatory or Antipyret ic prednisone 10 mg tablet 12-31 00:00: 00 04-27 23:59 :00 No [id number] RESPIRATORY SX Per instruc tions DAILY Per instructio ns DAILY (route: oral) Med Classific ation: Endocrine furosemide 20 mg tablet 02-14 00:00: 00 02-18 23:59 :00 No [id number] FLUID RETENTION 1 tablet DAILY 1 tablet DAILY (route: oral) Med Classific ation: Cardiovas cular Therapy Agents Lasix 20 mg tablet 02-15 00:00: 00 02-18 23:59 :00 No [id number] SOB 3 tablet DAILY 3 tablet DAILY (route: oral) Alternate Route: BY MOUTH. Med Classific ation: Cardiovas cular Therapy Agents Lasix 20 mg tablet 02-18 00:00: 00 04-19 23:59 :00 No [id number] SOB 2 tablet DAILY 2 tablet DAILY (route: oral) Alternate Route: BY MOUTH. Med Classific ation: Cardiovas cular Therapy Agents levothyroxi ne 88 mcg tablet 03-01 00:00: 00 Yes [id number] HYPOTHYROID 1 tablet DAILY 1 tablet DAILY (route: oral) Med Classific ation: Endocrine meclizine 25 mg tablet 03-01 00:00: 00 Yes [id number] DIZZINESS 1 tablet 3 TIMES DAILY 1 tablet 3 TIMES DAILY (route: oral) Med Classific ation: Gastroint estinal Therapy Agents metoprolol succinate ER 25 mg tablet,exte nded release 24 hr 02-28 00:00: 00 03-22 23:59 :00 No [id number] LOWERS BLOOD PRESSURE 1 tablet 2 TIMES DAILY 1 tablet 2 TIMES DAILY (route: oral) Med Classific ation: Cardiovas cular Therapy Agents metoprolol succinate ER 50 mg tablet,exte nded release 24 hr 03-22 00:00: 00 04-19 23:59 :00 No [id number] HR 1 tablet 2 TIMES DAILY 1 tablet 2 TIMES DAILY (route: oral) Alternate Route: BY MOUTH. Med Classific ation: Cardiovas cular Therapy Agents omeprazole 40 mg capsule,del ayed release 03-22 00:00: 00 Yes [id number] HEARTBURN 1 capsule DAILY 1 capsule DAILY (route: oral) Alternate Route: BY MOUTH. Med Classific ation: Gastroint estinal Therapy Agents cyclobenzap rine 10 mg tablet 04-12 00:00: 00 05-19 23:59 :00 No [id number] PAIN 1 tablet DAILY 1 tablet DAILY (route: oral) Alternate Route: BY MOUTH. Med Classific ation: Locomotor System meloxicam 15 mg tablet 04-12 00:00: 00 06-01 23:59 :00 No [id number] PAIN 1 tablet DAILY 1 tablet DAILY (route: oral) Alternate Route: BY MOUTH. Med Classific ation: Analgesic , Anti-infl ammatory or Antipyret ic gabapentin 300 mg capsule 04-19 00:00: 00 05-19 23:59 :00 No [id number] PAIN MANAGEMENT 1 capsule BEDTIME 1 capsule BEDTIME (route: oral) Med Classific ation: Central Nervous System Agents furosemide 20 mg tablet 8 00:00: 00 Yes [id number] FLUID RETENTION 3 tablet DAILY 3 tablet DAILY (route: oral) Med Classific ation: Cardiovas cular Therapy Agents metoprolol succinate ER 25 mg tablet,exte nded release 24 hr 8 00:00: 00 06-01 23:59 :00 No [id number] AFIB 1 tablet EVERY PM 1 tablet EVERY PM (route: oral) Med Classific ation: Cardiovas cular Therapy Agents metoprolol succinate ER 50 mg tablet,exte nded release 24 hr 04-19 00:00: 00 06-01 23:59 :00 No [id number] AFIB 1 tablet DAILY 1 tablet DAILY (route: oral) Med Classific ation: Cardiovas cular Therapy Agents loratadine 10 mg capsule 04-30 00:00: 00 Yes [id number] ALLERGIES 1 capsule DAILY 1 capsule DAILY (route: oral) Med Classific ation: Respirato ry Therapy Agents magnesium 200 mg tablet 04-30 00:00: 00 Yes [id number] SUPPLEMENT 1 tablet DAILY 1 tablet DAILY (route: oral) Med Classific ation: Electroly te Balance-N utritiona l Products prednisone 10 mg tablet 04-30 00:00: 00 06-01 23:59 :00 No [id number] RESPIRATORY 1 tablet DAILY 1 tablet DAILY (route: oral) Med Classific ation: Endocrine tramadol 50 mg tablet 05-19 00:00: 00 Yes [id number] PAIN 1 tablet 2 TIMES DAILY 1 tablet 2 TIMES DAILY (route: oral) Alternate Route: BY MOUTH. Med Classific ation: Analgesic , Anti-infl ammatory or Antipyret ic metoprolol succinate ER 50 mg tablet,exte nded release 24 hr 2023-08 00:00: 00 Yes [id number] A-FIB 1 tablet 2 TIMES DAILY 1 tablet 2 TIMES DAILY (route: oral) Med Classific ation: Cardiovas cular Therapy Agents prednisone 10 mg tablet 2023-08 0-15 00:00: 00 06-22 23:59 :00 No [id number] PAIN 3 tablet DAILY 3 tablet DAILY (route: oral) Alternate Route: BY MOUTH. Med Classific ation: Endocrine prednisone 10 mg tablet 2023-08 00:00: 00 Yes [id number] INFLAMMATIO N 1 tablet DAILY 1 tablet DAILY (route: oral) Alternate Route: BY MOUTH. Med Classific ation: Endocrine prednisone 20 mg tablet 2023-08 00:00: 00 06-29 23:59 :00 No [id number] INFLAMMATIO N 1 tablet DAILY 1 tablet DAILY (route: oral) Alternate Route: BY MOUTH. Med Classific ation: Endocrine Vital Signs Vital Name Observation Time Observation Value Commen ts Temperature 2024-07-29 12:45:00.000 97.2 [degF] Temperature 2024-07-12 10:13:00.000 97.2 [degF] Temperature 2024-06-29 11:34:00.000 97.8 [degF] Pulse 2024-07-29 12:45:00.000 81 /min Pulse 2024-07-12 10:13:00.000 88 /min Pulse 2024-06-29 11:34:00.000 88 /min O2 Saturation (%) 2024-07-29 12:45:00.000 96 % O2 Saturation (%) 2024-07-12 10:14:00.000 92 % Respirations 2024-07-29 12:45:00.000 18 /min Respirations 2024-07-12 10:13:00.000 18 /min Respirations 2024-06-29 11:34:00.000 18 /min Weight (lbs) 2024-07-29 12:46:00.000 179 [lb_av] Weight (lbs) 2024-07-12 10:14:00.000 178.5 [lb_av] Weight (lbs) 2024-06-29 11:34:00.000 178.6 [lb_av] Systolic Blood Pressure 2024-07-29 12:45:00.000 118 mm [Hg] Systolic Blood Pressure 2024-07-12 10:13:00.000 120 mm [Hg] Systolic Blood Pressure 2024-06-29 11:34:00.000 112 mm [Hg] Diastolic Blood Pressure 2024-07-29 12:45:00.000 76 mm [Hg] Diastolic Blood Pressure 2024-07-12 10:13:00.000 66 mm [Hg] Diastolic Blood Pressure 2024-06-29 11:34:00.000 68 mm [Hg] Plan of Treatment Planned Activity Planned Date Details Comments Future Scheduled Test AGENCY MAY PERFORM A RESUMPTION OF CARE VISIT FOLLOWING ANY HOSPITAL ADMISSION. PT TO EVALUATE, OBSERVE / ASSESS, AND MONITOR, WILLOW MACHINE OPERATOR TO OBSERVE AND MONITOR, PROVIDE SKILLED THERAPEUTIC INTERVENTION, ACTIVITY, EDUCATION, AND TRAINING TO ADDRESS; [code = AGENCY MAY PERFORM A RESUMPTION OF CARE VISIT FOLLOWING ANY HOSPITAL ADMISSION. PT TO EVALUATE, OBSERVE / ASSESS, AND MONITOR, WILLOW MACHINE OPERATOR TO OBSERVE AND MONITOR, PROVIDE SKILLED THERAPEUTIC INTERVENTION, ACTIVITY, EDUCATION, AND TRAINING TO ADDRESS;] Future Scheduled Test PT/WILLOW MACHINE OPERATOR TO PROVIDE STAIR TRAINING [code = PT/WILLOW MACHINE OPERATOR TO PROVIDE STAIR TRAINING] Future Scheduled Test PT/WILLOW MACHINE OPERATOR TO PROVIDE GAIT TRAINING FOR IMPROVED MOBILITY AND /OR TO NORMALIZE GAIT PATTERN [code = PT/WILLOW MACHINE OPERATOR TO PROVIDE GAIT TRAINING FOR IMPROVED MOBILITY AND /OR TO NORMALIZE GAIT PATTERN] Future Scheduled Test THERAPEUTI C EXERCISES AND ESTABLISHING A HOME EXERCISE PROGRAM (PT/WILLOW MACHINE OPERATOR) [code = THERAPEUTIC EXERCISES AND ESTABLISHING A HOME EXERCISE PROGRAM (PT/WILLOW MACHINE OPERATOR)] Future Scheduled Test NEUROMUSCU LAR RE-EDUCATION / BALANCE / POSTURAL CONTROL (PT) [code = NEUROMUSCULAR RE-EDUCATION / BALANCE / POSTURAL CONTROL (PT)] Future Scheduled Test PT/WILLOW MACHINE OPERATOR TO IDENTIFY FALL RISK FACTORS; EDUCATE THE PATIENT/CAREGIVER ON WAYS TO REDUCE FALL RISK FACTORS AND ESTABLISH HOME EXERCISE PROGRAM TO MINIMIZE FALL RISK. MAY TEACH THE PATIENT FLOOR RECOVERY WHEN CLINICALLY APPROPRIATE [code = PT/WILLOW MACHINE OPERATOR TO IDENTIFY FALL RISK FACTORS; EDUCATE THE PATIENT/CAREGIVER ON WAYS TO REDUCE FALL RISK FACTORS AND ESTABLISH HOME EXERCISE PROGRAM TO MINIMIZE FALL RISK. MAY TEACH THE PATIENT FLOOR RECOVERY WHEN CLINICALLY APPROPRIATE] Future Scheduled Test PT TO ASSE SS / WILLOW MACHINE OPERATOR TO MONITOR FOR HEART FAILURE EXACERBATION AND RECORD PATIENT REPORTED WEIGHT, AND NOTIFY THE PHYSICIAN AND/OR THE RN CLINICAL MACHINE HEEL SEAT LASTER FOR PHYSICIAN NOTIFICATION OF HF EXACERBATION (2LB WEIGHT GAIN IN 1 DAY, 5LBS IN A WEEK OR 5 LBS OVER BASELINE; INCREASED SOB, EDEMA, NEEDING MORE PILLOWS AT NIGHT, CRACKLES IN BASIS OF THE LUNGS OR PMI SHIFT) [code = PT TO ASSESS / WILLOW MACHINE OPERATOR TO MONITOR FOR HEART FAILURE EXACERBATION AND RECORD PATIENT REPORTED WEIGHT, AND NOTIFY THE PHYSICIAN AND/OR THE RN CLINICAL MACHINE HEEL SEAT LASTER FOR PHYSICIAN NOTIFICATION OF HF EXACERBATION (2LB WEIGHT GAIN IN 1 DAY, 5LBS IN A WEEK OR 5 LBS OVER BASELINE; INCREASED SOB, EDEMA, NEEDING MORE PILLOWS AT NIGHT, CRACKLES IN BASIS OF THE LUNGS OR PMI SHIFT)] Future Scheduled Test PT TO ASSE SS / WILLOW MACHINE OPERATOR TO MONITOR CARDIO/RESPIRATORY SYSTEM; AND NOTIFY THE PHYSICIAN AND/OR THE RN CLINICAL MACHINE HEEL SEAT LASTER FOR PHYSICIAN NOTIFICATION FOR EARLY SIGNS AND SYMPTOMS OF EXACERBATION OR DETERIORATION. [code = PT TO ASSESS / WILLOW MACHINE OPERATOR TO MONITOR CARDIO/RESPIRATORY SYSTEM; AND NOTIFY THE PHYSICIAN AND/OR THE RN CLINICAL MACHINE HEEL SEAT LASTER FOR PHYSICIAN NOTIFICATION FOR EARLY SIGNS AND SYMPTOMS OF EXACERBATION OR DETERIORATION.] Future Scheduled Test PT / WILLOW MACHINE OPERATOR T O MONITOR AND EDUCATE ON OXYGEN SATURATION DURING ADLS/IADLS, NOTIFY PHYSICIAN AND/OR THE RN CLINICAL MACHINE HEEL SEAT LASTER FOR PHYSICIAN NOTIFICATION AND IF O2 SATS BELOW PHYSICIAN ORDERED PARAMETERS AFTER 10 MIN OF REST [code = PT / WILLOW MACHINE OPERATOR TO MONITOR AND EDUCATE ON OXYGEN SATURATION DURING ADLS/IADLS, NOTIFY PHYSICIAN AND/OR THE RN CLINICAL MACHINE HEEL SEAT LASTER FOR PHYSICIAN NOTIFICATION AND IF O2 SATS BELOW PHYSICIAN ORDERED PARAMETERS AFTER 10 MIN OF REST] Future Scheduled Test PT / WILLOW MACHINE OPERATOR M AY EDUCATE ON PAIN MANAGEMENT CLINICALLY INDICATED, INCLUDING NON-PHARMACOLOGICAL PAIN REDUCTION TECHNIQUES [code = PT / WILLOW MACHINE OPERATOR MAY EDUCATE ON PAIN MANAGEMENT CLINICALLY INDICATED, INCLUDING NON-PHARMACOLOGICAL PAIN REDUCTION TECHNIQUES ] Future Scheduled Test PT / WILLOW MACHINE OPERATOR T O INSTRUCT PATIENT/CAREGIVER ON RISK FOR HOSPITALIZATION/EMERGENCY ROOM VISITS, TEACH SIGNS AND SYMPTOMS THAT PUT PATIENT AT RISK, WHEN TO NOTIFY NURSE/PHYSICIAN OF COMPLICATIONS/DECLINE, AND WHEN TO CALL 911. [code = PT / WILLOW MACHINE OPERATOR TO INSTRUCT PATIENT/CAREGIVER ON RISK FOR HOSPITALIZATION/EMERGENCY ROOM VISITS, TEACH SIGNS AND SYMPTOMS THAT PUT PATIENT AT RISK, WHEN TO NOTIFY NURSE/PHYSICIAN OF COMPLICATIONS/DECLINE, AND WHEN TO CALL 911.] Goal 2024-02-15 Patient Goal - TO MAKE IMPRO VEMENTS Goal 2024-04-27 Patient Goal - TO MAKE IMPRO VEMENTS Goal 2024-02-25 Patient Goal - TO MAKE IMPRO VEMENTS Goal 2024-06-24 Patient Goal - TO MAKE IMPRO VEMENTS Goal 2024-07-29 Patient Goal - TO MAKE IMPRO VEMENTS Goal Provider Goal - Goal Provider Goal - PT LTG: PATIENT WILL DEMONSTRATE IMPROVED ABILITY TO SAFELY NEGOTIATE STAIRS FROM SBA TO INDEPENDENT IN ORDER TO ENTER AND EXIT THE HOME WITHIN 5 WEEKS Goal Provider Goal - PT LTG: PATIENT WILL DEMONSTRATE IMPROVED AMBULATION FROM SBA TO INDEPENDENT ON A VARIETY OF SURFACES WITHIN 5 WEEKS Goal Provider Goal - PT LTG: PATIENT WILL DEMONSTRATE INCREASED STRENGTH OF BLE FROM 4-/5 TO 4+/5 WITHIN 5 WEEKS IN ORDER TO IMPROVE GAIT AND TRANSFERS Goal Provider Goal - PT LTG: PATIENT WILL DEMONSTRATE REDUCED FALL RISK EVIDENCED BY TUG TEST (CUT SCORE >11 SECONDS INDICATES INCREASED FALL RISK) IMPROVING FROM 22 SECONDS TO 11 SECONDS WITHIN 5 WEEKS Goal Provider Goal - PT LTG: PATIENT/CAREGIVER WILL DEMONSTRATE ADHERENCE TO FALL REDUCTION SELF-MANAGEMENT AND REDUCING FALL RISK FACTORS TO MINIMIZE FALL RISK BY END OF EPISODE Goal Provider Goal - PT GOAL: PATIENTS HEART FAILURE WILL REMAIN WELL CONTROLLED THROUGHOUT EPISODE OF CARE. Goal Provider Goal - PT LTG: PATIENT WILL NOT EXPERIENCE CARDIAC OR RESPIRATORY COMPLICATIONS THROUGHOUT THE EPISODE OF CARE. Goal Provider Goal - PT LTG: PATIENT WILL MAINTAIN OXYGEN SATURATION WITHIN PHYSICIAN ORDERED PARAMETERS THROUGHOUT EPISODE OF CARE. Goal Provider Goal - PT GOAL: PATIENT WILL DEMONSTRATE UNDERSTANDING OF PAIN MANAGEMENT TECHNIQUES EVIDENCED BY REDUCED PAIN Goal Provider Goal - PT GOAL: PATIENT/CAREGIVER WILL VERBALIZE UNDERSTANDING OF SIGNS AND SYMPTOMS THAT PUT THE PATIENT AT RISK FOR HOSPITALIZATION /EMERGENCY ROOM VISITS, WHEN TO NOTIFY NURSE/PHYSICIAN OF COMPLICATIONS/DECLINE AND WHEN TO CALL 911. Reason for Visit INDEPENDENT IN THE COMMUNITY Encounters Start Date/Time End Date/Time Encounter Type Admission Type Attending [facility] Care Department Encounter ID Discharge Date Discharge Status Discharge Condition Discharge Reason Percent Goals Met 2024-01-01 00:00:00 2024-07-29 00:00:00 Outpatient [facility] MARY ELLEN NAYAK [facility] [id number] 2024-07-29 00:00:00 DISCHARGE TO HOME OR SELF CARE [facility]DEPENDEN T IN THE COMMUNITY HH OR [facility]- GOALS MET 75.00
--- OUTSIDE RECORDS SUMMARY | 2024-08-10 15:27 | XMS_ITS | Continuity of Care Document ---
Author Organization [facility] Address [address] [place] [address] [address] [place], [place] Phone [phone] Care Team Providers Care Thermoforming Operator Name Role Phone Dayan Barragan MD Care Team Information Rec eiver Unavailable Social History Type Date Description Comments Sex Unknown
== END 2024-08-08 14:04 | disposition home or self-care (01) ==
PROVIDERS: PCP Internal Medicine; Visit Provider Internal Medicine Cardiovascular Disease
DX: I44.2 Atrioventricular block, complete (principal); Z95.0 Presence of cardiac pacemaker
CPT/HCPCS: 93280

== ENCOUNTER → 2024-08-08 12:23 | Outpatient (BNVA) | payer MEDICARE, OTHER, SELFPAY | PROVIDERS: PCP Internal Medicine; Visit Provider Internal Medicine Cardiovascular Disease | DX: I48.0 Paroxysmal atrial fibrillation (principal); Z87.891 Personal history of nicotine dependence; Z45.018 Encounter for adjustment and management of other part of cardiac pacemaker | CPT/HCPCS: 93280 ==

== ENCOUNTER → 2024-08-10 23:59 | Outpatient (BNV) | payer MEDICARE, OTHER, SELFPAY ==
--- NOTE | 2024-09-01 19:46 | A.OFFVIS_ITS ---
Intake Visit Reasons: Remote Device Check-Medtronic Allergies codeine Allergy (Severe, Verified 08/30/24 12:59) felt like going to propranolol Allergy (Intermediate, Verified 08/30/24 12:59) dizziness Seasonal Allergies Allergy (Intermediate, Verified 08/30/24 12:59) Sneezing, vertigo PFSH Medical History Lower thoracic back pain Bifascicular block Supplemental oxygen dependent CREST (calcinosis, Raynaud's phenomenon, esophageal dysfunction, sclerodactyly, telangiectasia) Dyspnea on exertion Pericardial effusion Complete heart block Hypothyroid Enlarged thyroid Hypertension Multinodular thyroid Telangiectasia Dysphagia Surgical History Status post cardiac pacemaker procedure S/P cardiac cath S/P tooth extraction Hx of colonoscopy H/O breast biopsy Family History Father Heart disease Sister Ovarian cancer Brother Heart attack Stroke Mother Thyroid disease Brother Asthma Social History Household Members: Spouse Housing: House Do you presently have visiting nurse or other home services: Yes ([facility] ,PT) Alcohol intake: never Patient Tobacco Use Status: Former Tobacco user Tobacco use type: Cigarette Years Smoked: 20 +/- e-Cigarette/Vaping Use: Never Used Second Hand Smoke Exposure: Yes Advance Directives Date on File: 02/13/24 service: No Current occupational status: retired 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 No new alert. [id number]-QB Cardiac Device Check, pacemaker dual lead Procedure code (CPT) selection complete Assessment & Plan Assessment & Plan (1) S/P placement of cardiac pacemaker: Comment: Medtronic dual-chamber pacemaker for complete heart block 12/2023 Code(s): Z95.0 - Presence of cardiac pacemaker Category: Surgical Plan: Coding Level of Care Code Procedure Only Diagnoses S/P placement of cardiac pacemaker Z95.0 CPT Codes Cardiac Device Check - Cardiac Device 2: 90319-RD Cardiac Device Check, pacemaker dual lead ([id number])
== END ==
PROVIDERS: PCP Internal Medicine; Visit Provider Internal Medicine Cardiovascular Disease
DX: I44.2 Atrioventricular block, complete (principal); Z95.0 Presence of cardiac pacemaker
CPT/HCPCS: 93294

== ENCOUNTER 2024-08-16 09:48 | Outpatient (REF) | payer MEDICARE, OTHER, SELFPAY ==
--- OUTSIDE RECORDS SUMMARY | 2024-08-16 09:53 | XMS_ITS | Continuity of Care Document ---
Author Organization [facility] Address [address] [place] [address] [address] [place], [place] Phone [phone] Care Team Providers Care Scrap Baller Name Role Phone Dayan Barragan MD Care Team Information Rec eiver Unavailable Social History Type Date Description Comments Sex Unknown
--- OUTSIDE RECORDS SUMMARY | 2024-08-16 09:53 | XMS_ITS | Clinical Summary ---
Author Organization Unknown Care Team Providers Care General Clerk Name Role Phone REJI MARION, HELEN Unavailable Unavailab debbie VILLALOBOS LPN, BERKLEY Unavailable Unavailable JUNIOR PAINT PREPPER, ROBERT Unavailable Unavailable STEVEN RN, MARTINE Unavailable Unavailable FRANCISCO JAVIER PT, MARY ELLEN Unavailable Unavailable Payers Payer Name Policy Type Policy Number Effective Date Expira tion Date MEDICARE.NGS.PDGM [id number] Problems Condition Name Condition Details Condition Category [...] 12-07 00:00: 00 12-31 00:00 :00 No [id number] Per instruc tions Per instructio ns (route: oral) Med Classific ation: Endocrine hydrochloro thiazide 25 mg tablet 11-26 00:00: 00 02-14 23:59 :00 No [id number] LOWERS BLOOD PRESSURE 1 tablet DAILY 1 tablet DAILY (route: oral) Med Classific ation: Cardiovas cular Therapy Agents levothyroxi ne 75 mcg capsule 11-25 00:00: 00 02-24 23:59 :00 No [id number] HYPOTHYROID 1 capsule DAILY 1 capsule DAILY (route: oral) Med Classific ation: Endocrine acetaminoph en 500 mg tablet 12-31 00:00: 00 Yes [id number] PAIN 2 tablet 2 TIMES DAILY 2 tablet 2 TIMES DAILY (route: oral) Med Classific ation: Analgesic , Anti-infl ammatory or Antipyret ic albuterol sulfate HFA 90 mcg/actuati on aerosol inhaler 12-31 00:00: 00 Yes [id number] SOB/WHEEZIN G 2 puff EVERY 6 HOURS 2 puff EVERY 6 HOURS (route: inhalation ) Med Classific ation: Respirato ry Therapy Agents atorvastati n 40 mg tablet 12-31 00:00: 00 Yes [id number] LOWERS CHOLESTEROL 1 tablet BEDTIME 1 tablet BEDTIME (route: oral) Med Classific ation: Cardiovas cular Therapy Agents cyanocobala min (vit B-12) 1,000 mcg tablet 12-31 00:00: 00 Yes [id number] SUPPLEMENT 1 tablet DAILY 1 tablet DAILY (route: oral) Med Classific ation: Electroly te Balance-N utritiona l Products ibuprofen 600 mg tablet 12-31 00:00: 00 Yes [id number] PAIN 1 tablet 3 TIMES DAILY 1 tablet 3 TIMES DAILY (route: oral) Med Classific ation: Analgesic , Anti-infl ammatory or Antipyret ic meclizine 25 mg tablet 12-31 00:00: 00 02-24 23:59 :00 No [id number] DIZZINESS 1 tablet 3 TIMES DAILY 1 tablet 3 TIMES DAILY (route: oral) Med Classific ation: Gastroint estinal Therapy Agents metoprolol succinate ER 25 mg tablet,exte nded release 24 hr 12-31 00:00: 00 02-28 23:59 :00 No [id number] LOWERS BLOOD PRESSURE 1 tablet DAILY 1 tablet DAILY (route: oral) Med Classific ation: Cardiovas cular Therapy Agents naproxen sodium 220 mg capsule 12-31 00:00: 00 04-27 23:59 :00 No [id number] PAIN MANAGEMENT 1 capsule DAILY 1 capsule DAILY (route: oral) Med Classific ation: Analgesic , Anti-infl ammatory or Antipyret ic prednisone 10 mg tablet 12-31 00:00: 00 04-27 23:59 :00 No [id number] RESPIRATORY SX Per instruc tions DAILY Per instructio ns DAILY (route: oral) Med Classific ation: Endocrine furosemide 20 mg tablet 02-14 00:00: 00 02-18 23:59 :00 No [id number] FLUID RETENTION 1 tablet DAILY 1 tablet DAILY (route: oral) Med Classific ation: Cardiovas cular Therapy Agents Lasix 20 mg tablet 02-15 00:00: 00 02-18 23:59 :00 No [id number] SOB 3 tablet DAILY 3 tablet DAILY (route: oral) Alternate Route: BY MOUTH. Med Classific ation: Cardiovas cular Therapy Agents Lasix 20 mg tablet 02-18 00:00: 00 04-19 23:59 :00 No [id number] SOB 2 tablet DAILY 2 tablet DAILY (route: oral) Alternate Route: BY MOUTH. Med Classific ation: Cardiovas cular Therapy Agents levothyroxi ne 88 mcg tablet 03-01 00:00: 00 Yes [id number] HYPOTHYROID 1 tablet DAILY 1 tablet DAILY (route: oral) Med Classific ation: Endocrine meclizine 25 mg tablet 03-01 00:00: 00 Yes [id number] DIZZINESS 1 tablet 3 TIMES DAILY 1 tablet 3 TIMES DAILY (route: oral) Med Classific ation: Gastroint estinal Therapy Agents metoprolol succinate ER 25 mg tablet,exte nded release 24 hr 02-28 00:00: 00 03-22 23:59 :00 No [id number] LOWERS BLOOD PRESSURE 1 tablet 2 TIMES DAILY 1 tablet 2 TIMES DAILY (route: oral) Med Classific ation: Cardiovas cular Therapy Agents metoprolol succinate ER 50 mg tablet,exte nded release 24 hr 03-22 00:00: 00 04-19 23:59 :00 No [id number] HR 1 tablet 2 TIMES DAILY 1 tablet 2 TIMES DAILY (route: oral) Alternate Route: BY MOUTH. Med Classific ation: Cardiovas cular Therapy Agents omeprazole 40 mg capsule,del ayed release 03-22 00:00: 00 Yes [id number] HEARTBURN 1 capsule DAILY 1 capsule DAILY (route: oral) Alternate Route: BY MOUTH. Med Classific ation: Gastroint estinal Therapy Agents cyclobenzap rine 10 mg tablet 04-12 00:00: 00 05-19 23:59 :00 No [id number] PAIN 1 tablet DAILY 1 tablet DAILY (route: oral) Alternate Route: BY MOUTH. Med Classific ation: Locomotor System meloxicam 15 mg tablet 04-12 00:00: 00 06-01 23:59 :00 No [id number] PAIN 1 tablet DAILY 1 tablet DAILY (route: oral) Alternate Route: BY MOUTH. Med Classific ation: Analgesic , Anti-infl ammatory or Antipyret ic gabapentin 300 mg capsule 04-19 00:00: 00 05-19 23:59 :00 No [id number] PAIN MANAGEMENT 1 capsule BEDTIME 1 capsule BEDTIME (route: oral) Med Classific ation: Central Nervous System Agents furosemide 20 mg tablet 8 00:00: 00 Yes [id number] FLUID RETENTION 3 tablet DAILY 3 tablet DAILY (route: oral) Med Classific ation: Cardiovas cular Therapy Agents metoprolol succinate ER 25 mg tablet,exte nded release 24 hr 8 00:00: 00 06-01 23:59 :00 No [id number] AFIB 1 tablet EVERY PM 1 tablet EVERY PM (route: oral) Med Classific ation: Cardiovas cular Therapy Agents metoprolol succinate ER 50 mg tablet,exte nded release 24 hr 04-19 00:00: 00 06-01 23:59 :00 No [id number] AFIB 1 tablet DAILY 1 tablet DAILY (route: oral) Med Classific ation: Cardiovas cular Therapy Agents loratadine 10 mg capsule 04-30 00:00: 00 Yes [id number] ALLERGIES 1 capsule DAILY 1 capsule DAILY (route: oral) Med Classific ation: Respirato ry Therapy Agents magnesium 200 mg tablet 04-30 00:00: 00 Yes [id number] SUPPLEMENT 1 tablet DAILY 1 tablet DAILY (route: oral) Med Classific ation: Electroly te Balance-N utritiona l Products prednisone 10 mg tablet 04-30 00:00: 00 06-01 23:59 :00 No [id number] RESPIRATORY 1 tablet DAILY 1 tablet DAILY (route: oral) Med Classific ation: Endocrine tramadol 50 mg tablet 05-19 00:00: 00 Yes [id number] PAIN 1 tablet 2 TIMES DAILY 1 tablet 2 TIMES DAILY (route: oral) Alternate Route: BY MOUTH. Med Classific ation: Analgesic , Anti-infl ammatory or Antipyret ic metoprolol succinate ER 50 mg tablet,exte nded release 24 hr 2023-08 00:00: 00 Yes [id number] A-FIB 1 tablet 2 TIMES DAILY 1 tablet 2 TIMES DAILY (route: oral) Med Classific ation: Cardiovas cular Therapy Agents prednisone 10 mg tablet 2023-08 0-15 00:00: 00 06-22 23:59 :00 No [id number] PAIN 3 tablet DAILY 3 tablet DAILY (route: oral) Alternate Route: BY MOUTH. Med Classific ation: Endocrine prednisone 10 mg tablet 2023-08 00:00: 00 Yes [id number] INFLAMMATIO N 1 tablet DAILY 1 tablet DAILY (route: oral) Alternate Route: BY MOUTH. Med Classific ation: Endocrine prednisone 20 mg tablet 2023-08 00:00: 00 06-29 23:59 :00 No [id number] INFLAMMATIO N 1 tablet DAILY 1 tablet [...] TO EVALUATE, OBSERVE / ASSESS, AND MONITOR, PAINT PREPPER TO OBSERVE AND MONITOR, PROVIDE SKILLED THERAPEUTIC INTERVENTION, ACTIVITY, EDUCATION, AND TRAINING TO ADDRESS; [code = AGENCY MAY PERFORM A RESUMPTION OF CARE VISIT FOLLOWING ANY HOSPITAL ADMISSION. PT TO EVALUATE, OBSERVE / ASSESS, AND MONITOR, PAINT PREPPER TO OBSERVE AND MONITOR, PROVIDE SKILLED THERAPEUTIC INTERVENTION, ACTIVITY, EDUCATION, AND TRAINING TO ADDRESS;] Future Scheduled Test PT/PAINT PREPPER TO PROVIDE STAIR TRAINING [code = PT/PAINT PREPPER TO PROVIDE STAIR TRAINING] Future Scheduled Test PT/PAINT PREPPER TO PROVIDE GAIT TRAINING FOR IMPROVED MOBILITY AND /OR TO NORMALIZE GAIT PATTERN [code = PT/PAINT PREPPER TO PROVIDE GAIT TRAINING FOR IMPROVED MOBILITY AND /OR TO NORMALIZE GAIT PATTERN] Future Scheduled Test THERAPEUTI C EXERCISES AND ESTABLISHING A HOME EXERCISE PROGRAM (PT/PAINT PREPPER) [code = THERAPEUTIC EXERCISES AND ESTABLISHING A HOME EXERCISE PROGRAM (PT/PAINT PREPPER)] Future Scheduled Test NEUROMUSCU LAR RE-EDUCATION / BALANCE / POSTURAL CONTROL (PT) [code = NEUROMUSCULAR RE-EDUCATION / BALANCE / POSTURAL CONTROL (PT)] Future Scheduled Test PT/PAINT PREPPER TO IDENTIFY FALL RISK FACTORS; EDUCATE THE PATIENT/CAREGIVER ON WAYS TO REDUCE FALL RISK FACTORS AND ESTABLISH HOME EXERCISE PROGRAM TO MINIMIZE FALL RISK. MAY TEACH THE PATIENT FLOOR RECOVERY WHEN CLINICALLY APPROPRIATE [code = PT/PAINT PREPPER TO IDENTIFY FALL RISK FACTORS; EDUCATE THE PATIENT/CAREGIVER ON WAYS TO REDUCE FALL RISK FACTORS AND ESTABLISH HOME EXERCISE PROGRAM TO MINIMIZE FALL RISK. MAY TEACH THE PATIENT FLOOR RECOVERY WHEN CLINICALLY APPROPRIATE] Future Scheduled Test PT TO ASSE SS / PAINT PREPPER TO MONITOR FOR HEART FAILURE EXACERBATION AND RECORD PATIENT REPORTED WEIGHT, AND NOTIFY THE PHYSICIAN AND/OR THE RN CLINICAL WATER PIPE INSTALLER FOR PHYSICIAN NOTIFICATION OF HF EXACERBATION (2LB WEIGHT GAIN IN 1 DAY, 5LBS IN A WEEK OR 5 LBS OVER BASELINE; INCREASED SOB, EDEMA, NEEDING MORE PILLOWS AT NIGHT, CRACKLES IN BASIS OF THE LUNGS OR PMI SHIFT) [code = PT TO ASSESS / PAINT PREPPER TO MONITOR FOR HEART FAILURE EXACERBATION AND RECORD PATIENT REPORTED WEIGHT, AND NOTIFY THE PHYSICIAN AND/OR THE RN CLINICAL WATER PIPE INSTALLER FOR PHYSICIAN NOTIFICATION OF HF EXACERBATION (2LB WEIGHT GAIN IN 1 DAY, 5LBS IN A WEEK OR 5 LBS OVER BASELINE; INCREASED SOB, EDEMA, NEEDING MORE PILLOWS AT NIGHT, CRACKLES IN BASIS OF THE LUNGS OR PMI SHIFT)] Future Scheduled Test PT TO ASSE SS / PAINT PREPPER TO MONITOR CARDIO/RESPIRATORY SYSTEM; AND NOTIFY THE PHYSICIAN AND/OR THE RN CLINICAL WATER PIPE INSTALLER FOR PHYSICIAN NOTIFICATION FOR EARLY SIGNS AND SYMPTOMS OF EXACERBATION OR DETERIORATION. [code = PT TO ASSESS / PAINT PREPPER TO MONITOR CARDIO/RESPIRATORY SYSTEM; AND NOTIFY THE PHYSICIAN AND/OR THE RN CLINICAL WATER PIPE INSTALLER FOR PHYSICIAN NOTIFICATION FOR EARLY SIGNS AND SYMPTOMS OF EXACERBATION OR DETERIORATION.] Future Scheduled Test PT / PAINT PREPPER T O MONITOR AND EDUCATE ON OXYGEN SATURATION DURING ADLS/IADLS, NOTIFY PHYSICIAN AND/OR THE RN CLINICAL WATER PIPE INSTALLER FOR PHYSICIAN NOTIFICATION AND IF O2 SATS BELOW PHYSICIAN ORDERED PARAMETERS AFTER 10 MIN OF REST [code = PT / PAINT PREPPER TO MONITOR AND EDUCATE ON OXYGEN SATURATION DURING ADLS/IADLS, NOTIFY PHYSICIAN AND/OR THE RN CLINICAL WATER PIPE INSTALLER FOR PHYSICIAN NOTIFICATION AND IF O2 SATS BELOW PHYSICIAN ORDERED PARAMETERS AFTER 10 MIN OF REST] Future Scheduled Test PT / PAINT PREPPER M AY EDUCATE ON PAIN MANAGEMENT CLINICALLY INDICATED, INCLUDING NON-PHARMACOLOGICAL PAIN REDUCTION TECHNIQUES [code = PT / PAINT PREPPER MAY EDUCATE ON PAIN MANAGEMENT CLINICALLY INDICATED, INCLUDING NON-PHARMACOLOGICAL PAIN REDUCTION TECHNIQUES ] Future Scheduled Test PT / PAINT PREPPER T O INSTRUCT PATIENT/CAREGIVER ON RISK FOR HOSPITALIZATION/EMERGENCY ROOM VISITS, TEACH SIGNS AND SYMPTOMS THAT PUT PATIENT AT RISK, WHEN TO NOTIFY NURSE/PHYSICIAN OF COMPLICATIONS/DECLINE, AND WHEN TO CALL 911. [code = PT / PAINT PREPPER TO INSTRUCT PATIENT/CAREGIVER ON RISK FOR HOSPITALIZATION/EMERGENCY [...] End Date/Time Encounter Type Admission Type Attending [facility] Care Department Encounter ID Discharge Date Discharge Status Discharge Condition Discharge Reason Percent Goals Met 2024-01-01 00:00:00 2024-07-29 00:00:00 Outpatient [facility] MARY ELLEN NAYAK [facility] [id number] 2024-07-29 00:00:00 DISCHARGE TO HOME OR SELF CARE INDEPENDEN T IN THE COMMUNITY HH OR PAL- GOALS MET 75.00
--- OUTSIDE RECORDS SUMMARY | 2024-08-16 09:53 | XMS_ITS | Clinical Summary ---
Author Organization Unknown Care Team Providers Care Information Technology Assistant Name Role Phone REJI MARION, HELEN Unavailable Unavailab debbie VILLALOBOS LPN, BERKLEY Unavailable Unavailable JUNIOR COMMUNICATIONS PLANNER, ROBERT Unavailable Unavailable STEVEN RN, MARTINE Unavailable Unavailable FRANCISCO JAVIER PT, MARY ELLEN Unavailable Unavailable Payers Payer Name Policy Type Policy Number Effective Date Expira tion Date MEDICARE.NGS.PDGM [id number] Problems Condition Name Condition Details Condition Category [...] ULAR BLOCK, COMPLETE Active 08-31 00:00: 00 SENIOR LIVING (CURRENT) USE OF INHALED STEROIDS Active 08-31 00:00: 00 PERSONAL HISTORY OF COVID-19 Active 12-31 00:00: 00 PRESENCE OF CARDIAC PACEMAKER Active 12-31 00:00: 00 SENIOR LIVING (CURRENT) USE OF SYSTEMIC STEROIDS Active 08-31 [...] 12-07 00:00: 00 12-31 00:00 :00 No [id number] Per instruc tions Per instructio ns (route: oral) Med Classific ation: Endocrine hydrochloro thiazide 25 mg tablet 11-26 00:00: 00 02-14 23:59 :00 No [id number] LOWERS BLOOD PRESSURE 1 tablet DAILY 1 tablet DAILY (route: oral) Med Classific ation: Cardiovas cular Therapy Agents levothyroxi ne 75 mcg capsule 11-25 00:00: 00 02-24 23:59 :00 No [id number] HYPOTHYROID 1 capsule DAILY 1 capsule DAILY (route: oral) Med Classific ation: Endocrine acetaminoph en 500 mg tablet 12-31 00:00: 00 Yes [id number] PAIN 2 tablet 2 TIMES DAILY 2 tablet 2 TIMES DAILY (route: oral) Med Classific ation: Analgesic , Anti-infl ammatory or Antipyret ic albuterol sulfate HFA 90 mcg/actuati on aerosol inhaler 12-31 00:00: 00 Yes [id number] SOB/WHEEZIN G 2 puff EVERY 6 HOURS 2 puff EVERY 6 HOURS (route: inhalation ) Med Classific ation: Respirato ry Therapy Agents atorvastati n 40 mg tablet 12-31 00:00: 00 Yes [id number] LOWERS CHOLESTEROL 1 tablet BEDTIME 1 tablet BEDTIME (route: oral) Med Classific ation: Cardiovas cular Therapy Agents cyanocobala min (vit B-12) 1,000 mcg tablet 12-31 00:00: 00 Yes [id number] SUPPLEMENT 1 tablet DAILY 1 tablet DAILY (route: oral) Med Classific ation: Electroly te Balance-N utritiona l Products ibuprofen 600 mg tablet 12-31 00:00: 00 Yes [id number] PAIN 1 tablet 3 TIMES DAILY 1 tablet 3 TIMES DAILY (route: oral) Med Classific ation: Analgesic , Anti-infl ammatory or Antipyret ic meclizine 25 mg tablet 12-31 00:00: 00 02-24 23:59 :00 No [id number] DIZZINESS 1 tablet 3 TIMES DAILY 1 tablet 3 TIMES DAILY (route: oral) Med Classific ation: Gastroint estinal Therapy Agents metoprolol succinate ER 25 mg tablet,exte nded release 24 hr 12-31 00:00: 00 02-28 23:59 :00 No [id number] LOWERS BLOOD PRESSURE 1 tablet DAILY 1 tablet DAILY (route: oral) Med Classific ation: Cardiovas cular Therapy Agents naproxen sodium 220 mg capsule 12-31 00:00: 00 04-27 23:59 :00 No [id number] PAIN MANAGEMENT 1 capsule DAILY 1 capsule DAILY (route: oral) Med Classific ation: Analgesic , Anti-infl ammatory or Antipyret ic prednisone 10 mg tablet 12-31 00:00: 00 04-27 23:59 :00 No [id number] RESPIRATORY SX Per instruc tions DAILY Per instructio ns DAILY (route: oral) Med Classific ation: Endocrine furosemide 20 mg tablet 02-14 00:00: 00 02-18 23:59 :00 No [id number] FLUID RETENTION 1 tablet DAILY 1 tablet DAILY (route: oral) Med Classific ation: Cardiovas cular Therapy Agents Lasix 20 mg tablet 02-15 00:00: 00 02-18 23:59 :00 No [id number] SOB 3 tablet DAILY 3 tablet DAILY (route: oral) Alternate Route: BY MOUTH. Med Classific ation: Cardiovas cular Therapy Agents Lasix 20 mg tablet 02-18 00:00: 00 04-19 23:59 :00 No [id number] SOB 2 tablet DAILY 2 tablet DAILY (route: oral) Alternate Route: BY MOUTH. Med Classific ation: Cardiovas cular Therapy Agents levothyroxi ne 88 mcg tablet 03-01 00:00: 00 Yes [id number] HYPOTHYROID 1 tablet DAILY 1 tablet DAILY (route: oral) Med Classific ation: Endocrine meclizine 25 mg tablet 03-01 00:00: 00 Yes [id number] DIZZINESS 1 tablet 3 TIMES DAILY 1 tablet 3 TIMES DAILY (route: oral) Med Classific ation: Gastroint estinal Therapy Agents metoprolol succinate ER 25 mg tablet,exte nded release 24 hr 02-28 00:00: 00 03-22 23:59 :00 No [id number] LOWERS BLOOD PRESSURE 1 tablet 2 TIMES DAILY 1 tablet 2 TIMES DAILY (route: oral) Med Classific ation: Cardiovas cular Therapy Agents metoprolol succinate ER 50 mg tablet,exte nded release 24 hr 03-22 00:00: 00 04-19 23:59 :00 No [id number] HR 1 tablet 2 TIMES DAILY 1 tablet 2 TIMES DAILY (route: oral) Alternate Route: BY MOUTH. Med Classific ation: Cardiovas cular Therapy Agents omeprazole 40 mg capsule,del ayed release 03-22 00:00: 00 Yes [id number] HEARTBURN 1 capsule DAILY 1 capsule DAILY (route: oral) Alternate Route: BY MOUTH. Med Classific ation: Gastroint estinal Therapy Agents cyclobenzap rine 10 mg tablet 04-12 00:00: 00 05-19 23:59 :00 No [id number] PAIN 1 tablet DAILY 1 tablet DAILY (route: oral) Alternate Route: BY MOUTH. Med Classific ation: Locomotor System meloxicam 15 mg tablet 04-12 00:00: 00 06-01 23:59 :00 No [id number] PAIN 1 tablet DAILY 1 tablet DAILY (route: oral) Alternate Route: BY MOUTH. Med Classific ation: Analgesic , Anti-infl ammatory or Antipyret ic gabapentin 300 mg capsule 04-19 00:00: 00 05-19 23:59 :00 No [id number] PAIN MANAGEMENT 1 capsule BEDTIME 1 capsule BEDTIME (route: oral) Med Classific ation: Central Nervous System Agents furosemide 20 mg tablet 8 00:00: 00 Yes [id number] FLUID RETENTION 3 tablet DAILY 3 tablet DAILY (route: oral) Med Classific ation: Cardiovas cular Therapy Agents metoprolol succinate ER 25 mg tablet,exte nded release 24 hr 8 00:00: 00 06-01 23:59 :00 No [id number] AFIB 1 tablet EVERY PM 1 tablet EVERY PM (route: oral) Med Classific ation: Cardiovas cular Therapy Agents metoprolol succinate ER 50 mg tablet,exte nded release 24 hr 04-19 00:00: 00 06-01 23:59 :00 No [id number] AFIB 1 tablet DAILY 1 tablet DAILY (route: oral) Med Classific ation: Cardiovas cular Therapy Agents loratadine 10 mg capsule 04-30 00:00: 00 Yes [id number] ALLERGIES 1 capsule DAILY 1 capsule DAILY (route: oral) Med Classific ation: Respirato ry Therapy Agents magnesium 200 mg tablet 04-30 00:00: 00 Yes [id number] SUPPLEMENT 1 tablet DAILY 1 tablet DAILY (route: oral) Med Classific ation: Electroly te Balance-N utritiona l Products prednisone 10 mg tablet 04-30 00:00: 00 06-01 23:59 :00 No [id number] RESPIRATORY 1 tablet DAILY 1 tablet DAILY (route: oral) Med Classific ation: Endocrine tramadol 50 mg tablet 05-19 00:00: 00 Yes [id number] PAIN 1 tablet 2 TIMES DAILY 1 tablet 2 TIMES DAILY (route: oral) Alternate Route: BY MOUTH. Med Classific ation: Analgesic , Anti-infl ammatory or Antipyret ic metoprolol succinate ER 50 mg tablet,exte nded release 24 hr 2023-08 00:00: 00 Yes [id number] A-FIB 1 tablet 2 TIMES DAILY 1 tablet 2 TIMES DAILY (route: oral) Med Classific ation: Cardiovas cular Therapy Agents prednisone 10 mg tablet 2023-08 0-15 00:00: 00 06-22 23:59 :00 No [id number] PAIN 3 tablet DAILY 3 tablet DAILY (route: oral) Alternate Route: BY MOUTH. Med Classific ation: Endocrine prednisone 10 mg tablet 2023-08 00:00: 00 Yes [id number] INFLAMMATIO N 1 tablet DAILY 1 tablet DAILY (route: oral) Alternate Route: BY MOUTH. Med Classific ation: Endocrine prednisone 20 mg tablet 2023-08 00:00: 00 06-29 23:59 :00 No [id number] INFLAMMATIO N 1 tablet DAILY 1 tablet [...] TO EVALUATE, OBSERVE / ASSESS, AND MONITOR, COMMUNICATIONS PLANNER TO OBSERVE AND MONITOR, PROVIDE SKILLED THERAPEUTIC INTERVENTION, ACTIVITY, EDUCATION, AND TRAINING TO ADDRESS; [code = AGENCY MAY PERFORM A RESUMPTION OF CARE VISIT FOLLOWING ANY HOSPITAL ADMISSION. PT TO EVALUATE, OBSERVE / ASSESS, AND MONITOR, COMMUNICATIONS PLANNER TO OBSERVE AND MONITOR, PROVIDE SKILLED THERAPEUTIC INTERVENTION, ACTIVITY, EDUCATION, AND TRAINING TO ADDRESS;] Future Scheduled Test PT/COMMUNICATIONS PLANNER TO PROVIDE STAIR TRAINING [code = PT/COMMUNICATIONS PLANNER TO PROVIDE STAIR TRAINING] Future Scheduled Test PT/COMMUNICATIONS PLANNER TO PROVIDE GAIT TRAINING FOR IMPROVED MOBILITY AND /OR TO NORMALIZE GAIT PATTERN [code = PT/COMMUNICATIONS PLANNER TO PROVIDE GAIT TRAINING FOR IMPROVED MOBILITY AND /OR TO NORMALIZE GAIT PATTERN] Future Scheduled Test THERAPEUTI C EXERCISES AND ESTABLISHING A HOME EXERCISE PROGRAM (PT/COMMUNICATIONS PLANNER) [code = THERAPEUTIC EXERCISES AND ESTABLISHING A HOME EXERCISE PROGRAM (PT/COMMUNICATIONS PLANNER)] Future Scheduled Test NEUROMUSCU LAR RE-EDUCATION / BALANCE / POSTURAL CONTROL (PT) [code = NEUROMUSCULAR RE-EDUCATION / BALANCE / POSTURAL CONTROL (PT)] Future Scheduled Test PT/COMMUNICATIONS PLANNER TO IDENTIFY FALL RISK FACTORS; EDUCATE THE PATIENT/CAREGIVER ON WAYS TO REDUCE FALL RISK FACTORS AND ESTABLISH HOME EXERCISE PROGRAM TO MINIMIZE FALL RISK. MAY TEACH THE PATIENT FLOOR RECOVERY WHEN CLINICALLY APPROPRIATE [code = PT/COMMUNICATIONS PLANNER TO IDENTIFY FALL RISK FACTORS; EDUCATE THE PATIENT/CAREGIVER ON WAYS TO REDUCE FALL RISK FACTORS AND ESTABLISH HOME EXERCISE PROGRAM TO MINIMIZE FALL RISK. MAY TEACH THE PATIENT FLOOR RECOVERY WHEN CLINICALLY APPROPRIATE] Future Scheduled Test PT TO ASSE SS / COMMUNICATIONS PLANNER TO MONITOR FOR HEART FAILURE EXACERBATION AND RECORD PATIENT REPORTED WEIGHT, AND NOTIFY THE PHYSICIAN AND/OR THE RN CLINICAL COLOR PASTE MIXER FOR PHYSICIAN NOTIFICATION OF HF EXACERBATION (2LB WEIGHT GAIN IN 1 DAY, 5LBS IN A WEEK OR 5 LBS OVER BASELINE; INCREASED SOB, EDEMA, NEEDING MORE PILLOWS AT NIGHT, CRACKLES IN BASIS OF THE LUNGS OR PMI SHIFT) [code = PT TO ASSESS / COMMUNICATIONS PLANNER TO MONITOR FOR HEART FAILURE EXACERBATION AND RECORD PATIENT REPORTED WEIGHT, AND NOTIFY THE PHYSICIAN AND/OR THE RN CLINICAL COLOR PASTE MIXER FOR PHYSICIAN NOTIFICATION OF HF EXACERBATION (2LB WEIGHT GAIN IN 1 DAY, 5LBS IN A WEEK OR 5 LBS OVER BASELINE; INCREASED SOB, EDEMA, NEEDING MORE PILLOWS AT NIGHT, CRACKLES IN BASIS OF THE LUNGS OR PMI SHIFT)] Future Scheduled Test PT TO ASSE SS / COMMUNICATIONS PLANNER TO MONITOR CARDIO/RESPIRATORY SYSTEM; AND NOTIFY THE PHYSICIAN AND/OR THE RN CLINICAL COLOR PASTE MIXER FOR PHYSICIAN NOTIFICATION FOR EARLY SIGNS AND SYMPTOMS OF EXACERBATION OR DETERIORATION. [code = PT TO ASSESS / COMMUNICATIONS PLANNER TO MONITOR CARDIO/RESPIRATORY SYSTEM; AND NOTIFY THE PHYSICIAN AND/OR THE RN CLINICAL COLOR PASTE MIXER FOR PHYSICIAN NOTIFICATION FOR EARLY SIGNS AND SYMPTOMS OF EXACERBATION OR DETERIORATION.] Future Scheduled Test PT / COMMUNICATIONS PLANNER T O MONITOR AND EDUCATE ON OXYGEN SATURATION DURING ADLS/IADLS, NOTIFY PHYSICIAN AND/OR THE RN CLINICAL COLOR PASTE MIXER FOR PHYSICIAN NOTIFICATION AND IF O2 SATS BELOW PHYSICIAN ORDERED PARAMETERS AFTER 10 MIN OF REST [code = PT / COMMUNICATIONS PLANNER TO MONITOR AND EDUCATE ON OXYGEN SATURATION DURING ADLS/IADLS, NOTIFY PHYSICIAN AND/OR THE RN CLINICAL COLOR PASTE MIXER FOR PHYSICIAN NOTIFICATION AND IF O2 SATS BELOW PHYSICIAN ORDERED PARAMETERS AFTER 10 MIN OF REST] Future Scheduled Test PT / COMMUNICATIONS PLANNER M AY EDUCATE ON PAIN MANAGEMENT CLINICALLY INDICATED, INCLUDING NON-PHARMACOLOGICAL PAIN REDUCTION TECHNIQUES [code = PT / COMMUNICATIONS PLANNER MAY EDUCATE ON PAIN MANAGEMENT CLINICALLY INDICATED, INCLUDING NON-PHARMACOLOGICAL PAIN REDUCTION TECHNIQUES ] Future Scheduled Test PT / COMMUNICATIONS PLANNER T O INSTRUCT PATIENT/CAREGIVER ON RISK FOR HOSPITALIZATION/EMERGENCY ROOM VISITS, TEACH SIGNS AND SYMPTOMS THAT PUT PATIENT AT RISK, WHEN TO NOTIFY NURSE/PHYSICIAN OF COMPLICATIONS/DECLINE, AND WHEN TO CALL 911. [code = PT / COMMUNICATIONS PLANNER TO INSTRUCT PATIENT/CAREGIVER ON RISK FOR HOSPITALIZATION/EMERGENCY [...] End Date/Time Encounter Type Admission Type Attending [facility] Care Department Encounter ID Discharge Date Discharge Status Discharge Condition Discharge Reason Percent Goals Met 2024-01-01 00:00:00 2024-07-29 00:00:00 Outpatient [facility] MARY ELLEN NAYAK [facility] [id number] 2024-07-29 00:00:00 DISCHARGE TO HOME OR SELF CARE INDEPENDEN T IN THE COMMUNITY HH OR [facility]- GOALS MET 75.00
[2024-08-16 11:33] LABS: Parathyroid Hormone Intact 217.8 pg/mL (8.7-77.1)
[2024-08-16 11:35] LABS: Albumin Level 3.8 g/dL (3.5-5.0); Aspartate Amino Transferase 19 U/L (5-31); Bilirubin Total 1.2 mg/dL (0.0-1.0); Blood Urea Nitrogen 25 mg/dL (9-16); Calcium 8.6 mg/dL (8.4-10.2); Carbon Dioxide 25 mmol/L (22-29); Chloride 108 mmol/L (96-108); Estimated Glomerular Filt Rate > 60; Glucose Random 98 mg/dL (60-115); Phosphorus 4.1 mg/dL (2.7-4.5); Potassium 3.3 mmol/L (3.3-5.1); Sodium 144 mmol/L (135-145); Total Protein 5.8 g/dL (6.5-8.0)
[2024-08-16 11:39] LABS: Erythrocyte Sedimentation Rate 9 MM/HR (0-20)
[2024-08-16 11:55] LABS: Alanine Aminotransferase 21 U/L (0-31); Alkaline Phosphatase 47 U/L (39-117); Anion Gap 14 (12-20); TSH reflex Free T4 2.56 uIU/mL (0.32-4.0)
[2024-08-19 08:43] LABS: Prot Elec - Albumin 3.7 g/dL (3.8-4.8); Prot Elec - Alpha1 0.3 g/dL (0.2-0.3); Prot Elec - Alpha2 0.8 g/dL (0.5-0.9); Prot Elec - Beta 1 0.5 g/dL (0.4-0.6); Prot Elec - Beta 2 0.3 g/dL (0.2-0.5); Prot Elec - Gamma 0.3 g/dL (0.8-1.7); Prot Elec - Total Protein 5.8 g/dL (6.1-8.1)
[2024-08-20 17:14] LABS: Vitamin D 25-OH, D2 <4 ng/mL; Vitamin D 25-OH, D3 24 ng/mL; Vitamin D 25-OH, Total 24 ng/mL (30-100)
[2024-08-20 17:48] LABS: Collagen Type I C-Telopeptide 327 pg/mL (see note)
== END 2024-08-16 09:49 | disposition home or self-care (01) ==
LOC: HO.LAB 09:48
PROVIDERS: PCP Internal Medicine; Visit Provider Student in an Organized Health Care Education/Training Program
DX: M81.0 Age-related osteoporosis without current pathological fracture (principal); E55.9 Vitamin D deficiency, unspecified; M54.6 Pain in thoracic spine
CPT/HCPCS: 36415; 80053; 82306; 82523; 83970; 84100; 84165; 84443; 85652

== ENCOUNTER 2024-08-17 10:51 | Outpatient (AMB) | payer MEDICARE, OTHER, SELFPAY ==
--- OUTSIDE RECORDS SUMMARY | 2024-08-17 10:54 | XMS_ITS | Clinical Summary ---
Author Organization Unknown Care Team Providers Care Certified Medicine Aide Name Role Phone REJI MARION, HELEN Unavailable Unavailab debbie VILLALOBOS LPN, BERKLEY Unavailable Unavailable JUNIOR OIL FIELD WORKER, ROBERT Unavailable Unavailable STEVEN RN, MARTINE Unavailable Unavailable FRANCISCO JAVIER PT, MARY ELLEN Unavailable Unavailable Payers Payer Name Policy Type Policy Number Effective Date Expira tion Date MEDICARE.NGS.PDGM [id number] Problems Condition Name Condition Details Condition Category [...] ULAR BLOCK, COMPLETE Active 08-31 00:00: 00 USP (CURRENT) USE OF INHALED STEROIDS Active 08-31 00:00: 00 PERSONAL HISTORY OF COVID-19 Active 12-31 00:00: 00 PRESENCE OF CARDIAC PACEMAKER Active 12-31 00:00: 00 USP (CURRENT) USE OF SYSTEMIC STEROIDS Active 08-31 [...] 12-07 00:00: 00 12-31 00:00 :00 No [id number] Per instruc tions Per instructio ns (route: oral) Med Classific ation: Endocrine hydrochloro thiazide 25 mg tablet 11-26 00:00: 00 02-14 23:59 :00 No [id number] LOWERS BLOOD PRESSURE 1 tablet DAILY 1 tablet DAILY (route: oral) Med Classific ation: Cardiovas cular Therapy Agents levothyroxi ne 75 mcg capsule 11-25 00:00: 00 02-24 23:59 :00 No [id number] HYPOTHYROID 1 capsule DAILY 1 capsule DAILY (route: oral) Med Classific ation: Endocrine acetaminoph en 500 mg tablet 12-31 00:00: 00 Yes [id number] PAIN 2 tablet 2 TIMES DAILY 2 tablet 2 TIMES DAILY (route: oral) Med Classific ation: Analgesic , Anti-infl ammatory or Antipyret ic albuterol sulfate HFA 90 mcg/actuati on aerosol inhaler 12-31 00:00: 00 Yes [id number] SOB/WHEEZIN G 2 puff EVERY 6 HOURS 2 puff EVERY 6 HOURS (route: inhalation ) Med Classific ation: Respirato ry Therapy Agents atorvastati n 40 mg tablet 12-31 00:00: 00 Yes [id number] LOWERS CHOLESTEROL 1 tablet BEDTIME 1 tablet BEDTIME (route: oral) Med Classific ation: Cardiovas cular Therapy Agents cyanocobala min (vit B-12) 1,000 mcg tablet 12-31 00:00: 00 Yes [id number] SUPPLEMENT 1 tablet DAILY 1 tablet DAILY (route: oral) Med Classific ation: Electroly te Balance-N utritiona l Products ibuprofen 600 mg tablet 12-31 00:00: 00 Yes [id number] PAIN 1 tablet 3 TIMES DAILY 1 tablet 3 TIMES DAILY (route: oral) Med Classific ation: Analgesic , Anti-infl ammatory or Antipyret ic meclizine 25 mg tablet 12-31 00:00: 00 02-24 23:59 :00 No [id number] DIZZINESS 1 tablet 3 TIMES DAILY 1 tablet 3 TIMES DAILY (route: oral) Med Classific ation: Gastroint estinal Therapy Agents metoprolol succinate ER 25 mg tablet,exte nded release 24 hr 12-31 00:00: 00 02-28 23:59 :00 No [id number] LOWERS BLOOD PRESSURE 1 tablet DAILY 1 tablet DAILY (route: oral) Med Classific ation: Cardiovas cular Therapy Agents naproxen sodium 220 mg capsule 12-31 00:00: 00 04-27 23:59 :00 No [id number] PAIN MANAGEMENT 1 capsule DAILY 1 capsule DAILY (route: oral) Med Classific ation: Analgesic , Anti-infl ammatory or Antipyret ic prednisone 10 mg tablet 12-31 00:00: 00 04-27 23:59 :00 No [id number] RESPIRATORY SX Per instruc tions DAILY Per instructio ns DAILY (route: oral) Med Classific ation: Endocrine furosemide 20 mg tablet 02-14 00:00: 00 02-18 23:59 :00 No [id number] FLUID RETENTION 1 tablet DAILY 1 tablet DAILY (route: oral) Med Classific ation: Cardiovas cular Therapy Agents Lasix 20 mg tablet 02-15 00:00: 00 02-18 23:59 :00 No [id number] SOB 3 tablet DAILY 3 tablet DAILY (route: oral) Alternate Route: BY MOUTH. Med Classific ation: Cardiovas cular Therapy Agents Lasix 20 mg tablet 02-18 00:00: 00 04-19 23:59 :00 No [id number] SOB 2 tablet DAILY 2 tablet DAILY (route: oral) Alternate Route: BY MOUTH. Med Classific ation: Cardiovas cular Therapy Agents levothyroxi ne 88 mcg tablet 03-01 00:00: 00 Yes [id number] HYPOTHYROID 1 tablet DAILY 1 tablet DAILY (route: oral) Med Classific ation: Endocrine meclizine 25 mg tablet 03-01 00:00: 00 Yes [id number] DIZZINESS 1 tablet 3 TIMES DAILY 1 tablet 3 TIMES DAILY (route: oral) Med Classific ation: Gastroint estinal Therapy Agents metoprolol succinate ER 25 mg tablet,exte nded release 24 hr 02-28 00:00: 00 03-22 23:59 :00 No [id number] LOWERS BLOOD PRESSURE 1 tablet 2 TIMES DAILY 1 tablet 2 TIMES DAILY (route: oral) Med Classific ation: Cardiovas cular Therapy Agents metoprolol succinate ER 50 mg tablet,exte nded release 24 hr 03-22 00:00: 00 04-19 23:59 :00 No [id number] HR 1 tablet 2 TIMES DAILY 1 tablet 2 TIMES DAILY (route: oral) Alternate Route: BY MOUTH. Med Classific ation: Cardiovas cular Therapy Agents omeprazole 40 mg capsule,del ayed release 03-22 00:00: 00 Yes [id number] HEARTBURN 1 capsule DAILY 1 capsule DAILY (route: oral) Alternate Route: BY MOUTH. Med Classific ation: Gastroint estinal Therapy Agents cyclobenzap rine 10 mg tablet 04-12 00:00: 00 05-19 23:59 :00 No [id number] PAIN 1 tablet DAILY 1 tablet DAILY (route: oral) Alternate Route: BY MOUTH. Med Classific ation: Locomotor System meloxicam 15 mg tablet 04-12 00:00: 00 06-01 23:59 :00 No [id number] PAIN 1 tablet DAILY 1 tablet DAILY (route: oral) Alternate Route: BY MOUTH. Med Classific ation: Analgesic , Anti-infl ammatory or Antipyret ic gabapentin 300 mg capsule 04-19 00:00: 00 05-19 23:59 :00 No [id number] PAIN MANAGEMENT 1 capsule BEDTIME 1 capsule BEDTIME (route: oral) Med Classific ation: Central Nervous System Agents furosemide 20 mg tablet 8 00:00: 00 Yes [id number] FLUID RETENTION 3 tablet DAILY 3 tablet DAILY (route: oral) Med Classific ation: Cardiovas cular Therapy Agents metoprolol succinate ER 25 mg tablet,exte nded release 24 hr 8 00:00: 00 06-01 23:59 :00 No [id number] AFIB 1 tablet EVERY PM 1 tablet EVERY PM (route: oral) Med Classific ation: Cardiovas cular Therapy Agents metoprolol succinate ER 50 mg tablet,exte nded release 24 hr 04-19 00:00: 00 06-01 23:59 :00 No [id number] AFIB 1 tablet DAILY 1 tablet DAILY (route: oral) Med Classific ation: Cardiovas cular Therapy Agents loratadine 10 mg capsule 04-30 00:00: 00 Yes [id number] ALLERGIES 1 capsule DAILY 1 capsule DAILY (route: oral) Med Classific ation: Respirato ry Therapy Agents magnesium 200 mg tablet 04-30 00:00: 00 Yes [id number] SUPPLEMENT 1 tablet DAILY 1 tablet DAILY (route: oral) Med Classific ation: Electroly te Balance-N utritiona l Products prednisone 10 mg tablet 04-30 00:00: 00 06-01 23:59 :00 No [id number] RESPIRATORY 1 tablet DAILY 1 tablet DAILY (route: oral) Med Classific ation: Endocrine tramadol 50 mg tablet 05-19 00:00: 00 Yes [id number] PAIN 1 tablet 2 TIMES DAILY 1 tablet 2 TIMES DAILY (route: oral) Alternate Route: BY MOUTH. Med Classific ation: Analgesic , Anti-infl ammatory or Antipyret ic metoprolol succinate ER 50 mg tablet,exte nded release 24 hr 2023-08 00:00: 00 Yes [id number] A-FIB 1 tablet 2 TIMES DAILY 1 tablet 2 TIMES DAILY (route: oral) Med Classific ation: Cardiovas cular Therapy Agents prednisone 10 mg tablet 2023-08 0-15 00:00: 00 06-22 23:59 :00 No [id number] PAIN 3 tablet DAILY 3 tablet DAILY (route: oral) Alternate Route: BY MOUTH. Med Classific ation: Endocrine prednisone 10 mg tablet 2023-08 00:00: 00 Yes [id number] INFLAMMATIO N 1 tablet DAILY 1 tablet DAILY (route: oral) Alternate Route: BY MOUTH. Med Classific ation: Endocrine prednisone 20 mg tablet 2023-08 00:00: 00 06-29 23:59 :00 No [id number] INFLAMMATIO N 1 tablet DAILY 1 tablet [...] TO EVALUATE, OBSERVE / ASSESS, AND MONITOR, OIL FIELD WORKER TO OBSERVE AND MONITOR, PROVIDE SKILLED THERAPEUTIC INTERVENTION, ACTIVITY, EDUCATION, AND TRAINING TO ADDRESS; [code = AGENCY MAY PERFORM A RESUMPTION OF CARE VISIT FOLLOWING ANY HOSPITAL ADMISSION. PT TO EVALUATE, OBSERVE / ASSESS, AND MONITOR, OIL FIELD WORKER TO OBSERVE AND MONITOR, PROVIDE SKILLED THERAPEUTIC INTERVENTION, ACTIVITY, EDUCATION, AND TRAINING TO ADDRESS;] Future Scheduled Test PT/OIL FIELD WORKER TO PROVIDE STAIR TRAINING [code = PT/OIL FIELD WORKER TO PROVIDE STAIR TRAINING] Future Scheduled Test PT/OIL FIELD WORKER TO PROVIDE GAIT TRAINING FOR IMPROVED MOBILITY AND /OR TO NORMALIZE GAIT PATTERN [code = PT/OIL FIELD WORKER TO PROVIDE GAIT TRAINING FOR IMPROVED MOBILITY AND /OR TO NORMALIZE GAIT PATTERN] Future Scheduled Test THERAPEUTI C EXERCISES AND ESTABLISHING A HOME EXERCISE PROGRAM (PT/OIL FIELD WORKER) [code = THERAPEUTIC EXERCISES AND ESTABLISHING A HOME EXERCISE PROGRAM (PT/OIL FIELD WORKER)] Future Scheduled Test NEUROMUSCU LAR RE-EDUCATION / BALANCE / POSTURAL CONTROL (PT) [code = NEUROMUSCULAR RE-EDUCATION / BALANCE / POSTURAL CONTROL (PT)] Future Scheduled Test PT/OIL FIELD WORKER TO IDENTIFY FALL RISK FACTORS; EDUCATE THE PATIENT/CAREGIVER ON WAYS TO REDUCE FALL RISK FACTORS AND ESTABLISH HOME EXERCISE PROGRAM TO MINIMIZE FALL RISK. MAY TEACH THE PATIENT FLOOR RECOVERY WHEN CLINICALLY APPROPRIATE [code = PT/OIL FIELD WORKER TO IDENTIFY FALL RISK FACTORS; EDUCATE THE PATIENT/CAREGIVER ON WAYS TO REDUCE FALL RISK FACTORS AND ESTABLISH HOME EXERCISE PROGRAM TO MINIMIZE FALL RISK. MAY TEACH THE PATIENT FLOOR RECOVERY WHEN CLINICALLY APPROPRIATE] Future Scheduled Test PT TO ASSE SS / OIL FIELD WORKER TO MONITOR FOR HEART FAILURE EXACERBATION AND RECORD PATIENT REPORTED WEIGHT, AND NOTIFY THE PHYSICIAN AND/OR THE RN CLINICAL REGULATORY SPECIALIST FOR PHYSICIAN NOTIFICATION OF HF EXACERBATION (2LB WEIGHT GAIN IN 1 DAY, 5LBS IN A WEEK OR 5 LBS OVER BASELINE; INCREASED SOB, EDEMA, NEEDING MORE PILLOWS AT NIGHT, CRACKLES IN BASIS OF THE LUNGS OR PMI SHIFT) [code = PT TO ASSESS / OIL FIELD WORKER TO MONITOR FOR HEART FAILURE EXACERBATION AND RECORD PATIENT REPORTED WEIGHT, AND NOTIFY THE PHYSICIAN AND/OR THE RN CLINICAL REGULATORY SPECIALIST FOR PHYSICIAN NOTIFICATION OF HF EXACERBATION (2LB WEIGHT GAIN IN 1 DAY, 5LBS IN A WEEK OR 5 LBS OVER BASELINE; INCREASED SOB, EDEMA, NEEDING MORE PILLOWS AT NIGHT, CRACKLES IN BASIS OF THE LUNGS OR PMI SHIFT)] Future Scheduled Test PT TO ASSE SS / OIL FIELD WORKER TO MONITOR CARDIO/RESPIRATORY SYSTEM; AND NOTIFY THE PHYSICIAN AND/OR THE RN CLINICAL REGULATORY SPECIALIST FOR PHYSICIAN NOTIFICATION FOR EARLY SIGNS AND SYMPTOMS OF EXACERBATION OR DETERIORATION. [code = PT TO ASSESS / OIL FIELD WORKER TO MONITOR CARDIO/RESPIRATORY SYSTEM; AND NOTIFY THE PHYSICIAN AND/OR THE RN CLINICAL REGULATORY SPECIALIST FOR PHYSICIAN NOTIFICATION FOR EARLY SIGNS AND SYMPTOMS OF EXACERBATION OR DETERIORATION.] Future Scheduled Test PT / OIL FIELD WORKER T O MONITOR AND EDUCATE ON OXYGEN SATURATION DURING ADLS/IADLS, NOTIFY PHYSICIAN AND/OR THE RN CLINICAL REGULATORY SPECIALIST FOR PHYSICIAN NOTIFICATION AND IF O2 SATS BELOW PHYSICIAN ORDERED PARAMETERS AFTER 10 MIN OF REST [code = PT / OIL FIELD WORKER TO MONITOR AND EDUCATE ON OXYGEN SATURATION DURING ADLS/IADLS, NOTIFY PHYSICIAN AND/OR THE RN CLINICAL REGULATORY SPECIALIST FOR PHYSICIAN NOTIFICATION AND IF O2 SATS BELOW PHYSICIAN ORDERED PARAMETERS AFTER 10 MIN OF REST] Future Scheduled Test PT / OIL FIELD WORKER M AY EDUCATE ON PAIN MANAGEMENT CLINICALLY INDICATED, INCLUDING NON-PHARMACOLOGICAL PAIN REDUCTION TECHNIQUES [code = PT / OIL FIELD WORKER MAY EDUCATE ON PAIN MANAGEMENT CLINICALLY INDICATED, INCLUDING NON-PHARMACOLOGICAL PAIN REDUCTION TECHNIQUES ] Future Scheduled Test PT / OIL FIELD WORKER T O INSTRUCT PATIENT/CAREGIVER ON RISK FOR HOSPITALIZATION/EMERGENCY ROOM VISITS, TEACH SIGNS AND SYMPTOMS THAT PUT PATIENT AT RISK, WHEN TO NOTIFY NURSE/PHYSICIAN OF COMPLICATIONS/DECLINE, AND WHEN TO CALL 911. [code = PT / OIL FIELD WORKER TO INSTRUCT PATIENT/CAREGIVER ON RISK FOR HOSPITALIZATION/EMERGENCY [...] End Date/Time Encounter Type Admission Type Attending [facility] Care Department Encounter ID Discharge Date Discharge Status Discharge Condition Discharge Reason Percent Goals Met 2024-01-01 00:00:00 2024-07-29 00:00:00 Outpatient [facility] MARY ELLEN NAYAK [facility] [id number] 2024-07-29 00:00:00 DISCHARGE TO HOME OR SELF CARE INDEPENDEN T IN THE COMMUNITY HH OR [facility]- GOALS MET 75.00
--- OUTSIDE RECORDS SUMMARY | 2024-08-17 10:54 | XMS_ITS | Clinical Summary ---
Author Organization Unknown Care Team Providers Care Toddler Lead Teacher Name Role Phone REJI MARION, HELEN Unavailable Unavailab debbie VILLALOBOS LPN, BERKLEY Unavailable Unavailable JUNIOR SHOP MECHANIC HELPER, ROBERT Unavailable Unavailable STEVEN RN, MARTINE Unavailable Unavailable FRANCISCO JAVIER PT, MARY ELLEN Unavailable Unavailable Payers Payer Name Policy Type Policy Number Effective Date Expira tion Date MEDICARE.NGS.PDGM [id number] Problems Condition Name Condition Details Condition Category [...] ULAR BLOCK, COMPLETE Active 08-31 00:00: 00 LONGTERM (CURRENT) USE OF INHALED STEROIDS Active 08-31 00:00: 00 PERSONAL HISTORY OF COVID-19 Active 12-31 00:00: 00 PRESENCE OF CARDIAC PACEMAKER Active 12-31 00:00: 00 LONGTERM (CURRENT) USE OF SYSTEMIC STEROIDS Active 08-31 [...] 12-07 00:00: 00 12-31 00:00 :00 No [id number] Per instruc tions Per instructio ns (route: oral) Med Classific ation: Endocrine hydrochloro thiazide 25 mg tablet 11-26 00:00: 00 02-14 23:59 :00 No [id number] LOWERS BLOOD PRESSURE 1 tablet DAILY 1 tablet DAILY (route: oral) Med Classific ation: Cardiovas cular Therapy Agents levothyroxi ne 75 mcg capsule 11-25 00:00: 00 02-24 23:59 :00 No [id number] HYPOTHYROID 1 capsule DAILY 1 capsule DAILY (route: oral) Med Classific ation: Endocrine acetaminoph en 500 mg tablet 12-31 00:00: 00 Yes [id number] PAIN 2 tablet 2 TIMES DAILY 2 tablet 2 TIMES DAILY (route: oral) Med Classific ation: Analgesic , Anti-infl ammatory or Antipyret ic albuterol sulfate HFA 90 mcg/actuati on aerosol inhaler 12-31 00:00: 00 Yes [id number] SOB/WHEEZIN G 2 puff EVERY 6 HOURS 2 puff EVERY 6 HOURS (route: inhalation ) Med Classific ation: Respirato ry Therapy Agents atorvastati n 40 mg tablet 12-31 00:00: 00 Yes [id number] LOWERS CHOLESTEROL 1 tablet BEDTIME 1 tablet BEDTIME (route: oral) Med Classific ation: Cardiovas cular Therapy Agents cyanocobala min (vit B-12) 1,000 mcg tablet 12-31 00:00: 00 Yes [id number] SUPPLEMENT 1 tablet DAILY 1 tablet DAILY (route: oral) Med Classific ation: Electroly te Balance-N utritiona l Products ibuprofen 600 mg tablet 12-31 00:00: 00 Yes [id number] PAIN 1 tablet 3 TIMES DAILY 1 tablet 3 TIMES DAILY (route: oral) Med Classific ation: Analgesic , Anti-infl ammatory or Antipyret ic meclizine 25 mg tablet 12-31 00:00: 00 02-24 23:59 :00 No [id number] DIZZINESS 1 tablet 3 TIMES DAILY 1 tablet 3 TIMES DAILY (route: oral) Med Classific ation: Gastroint estinal Therapy Agents metoprolol succinate ER 25 mg tablet,exte nded release 24 hr 12-31 00:00: 00 02-28 23:59 :00 No [id number] LOWERS BLOOD PRESSURE 1 tablet DAILY 1 tablet DAILY (route: oral) Med Classific ation: Cardiovas cular Therapy Agents naproxen sodium 220 mg capsule 12-31 00:00: 00 04-27 23:59 :00 No [id number] PAIN MANAGEMENT 1 capsule DAILY 1 capsule DAILY (route: oral) Med Classific ation: Analgesic , Anti-infl ammatory or Antipyret ic prednisone 10 mg tablet 12-31 00:00: 00 04-27 23:59 :00 No [id number] RESPIRATORY SX Per instruc tions DAILY Per instructio ns DAILY (route: oral) Med Classific ation: Endocrine furosemide 20 mg tablet 02-14 00:00: 00 02-18 23:59 :00 No [id number] FLUID RETENTION 1 tablet DAILY 1 tablet DAILY (route: oral) Med Classific ation: Cardiovas cular Therapy Agents Lasix 20 mg tablet 02-15 00:00: 00 02-18 23:59 :00 No [id number] SOB 3 tablet DAILY 3 tablet DAILY (route: oral) Alternate Route: BY MOUTH. Med Classific ation: Cardiovas cular Therapy Agents Lasix 20 mg tablet 02-18 00:00: 00 04-19 23:59 :00 No [id number] SOB 2 tablet DAILY 2 tablet DAILY (route: oral) Alternate Route: BY MOUTH. Med Classific ation: Cardiovas cular Therapy Agents levothyroxi ne 88 mcg tablet 03-01 00:00: 00 Yes [id number] HYPOTHYROID 1 tablet DAILY 1 tablet DAILY (route: oral) Med Classific ation: Endocrine meclizine 25 mg tablet 03-01 00:00: 00 Yes [id number] DIZZINESS 1 tablet 3 TIMES DAILY 1 tablet 3 TIMES DAILY (route: oral) Med Classific ation: Gastroint estinal Therapy Agents metoprolol succinate ER 25 mg tablet,exte nded release 24 hr 02-28 00:00: 00 03-22 23:59 :00 No [id number] LOWERS BLOOD PRESSURE 1 tablet 2 TIMES DAILY 1 tablet 2 TIMES DAILY (route: oral) Med Classific ation: Cardiovas cular Therapy Agents metoprolol succinate ER 50 mg tablet,exte nded release 24 hr 03-22 00:00: 00 04-19 23:59 :00 No [id number] HR 1 tablet 2 TIMES DAILY 1 tablet 2 TIMES DAILY (route: oral) Alternate Route: BY MOUTH. Med Classific ation: Cardiovas cular Therapy Agents omeprazole 40 mg capsule,del ayed release 03-22 00:00: 00 Yes [id number] HEARTBURN 1 capsule DAILY 1 capsule DAILY (route: oral) Alternate Route: BY MOUTH. Med Classific ation: Gastroint estinal Therapy Agents cyclobenzap rine 10 mg tablet 04-12 00:00: 00 05-19 23:59 :00 No [id number] PAIN 1 tablet DAILY 1 tablet DAILY (route: oral) Alternate Route: BY MOUTH. Med Classific ation: Locomotor System meloxicam 15 mg tablet 04-12 00:00: 00 06-01 23:59 :00 No [id number] PAIN 1 tablet DAILY 1 tablet DAILY (route: oral) Alternate Route: BY MOUTH. Med Classific ation: Analgesic , Anti-infl ammatory or Antipyret ic gabapentin 300 mg capsule 04-19 00:00: 00 05-19 23:59 :00 No [id number] PAIN MANAGEMENT 1 capsule BEDTIME 1 capsule BEDTIME (route: oral) Med Classific ation: Central Nervous System Agents furosemide 20 mg tablet 8 00:00: 00 Yes [id number] FLUID RETENTION 3 tablet DAILY 3 tablet DAILY (route: oral) Med Classific ation: Cardiovas cular Therapy Agents metoprolol succinate ER 25 mg tablet,exte nded release 24 hr 8 00:00: 00 06-01 23:59 :00 No [id number] AFIB 1 tablet EVERY PM 1 tablet EVERY PM (route: oral) Med Classific ation: Cardiovas cular Therapy Agents metoprolol succinate ER 50 mg tablet,exte nded release 24 hr 04-19 00:00: 00 06-01 23:59 :00 No [id number] AFIB 1 tablet DAILY 1 tablet DAILY (route: oral) Med Classific ation: Cardiovas cular Therapy Agents loratadine 10 mg capsule 04-30 00:00: 00 Yes [id number] ALLERGIES 1 capsule DAILY 1 capsule DAILY (route: oral) Med Classific ation: Respirato ry Therapy Agents magnesium 200 mg tablet 04-30 00:00: 00 Yes [id number] SUPPLEMENT 1 tablet DAILY 1 tablet DAILY (route: oral) Med Classific ation: Electroly te Balance-N utritiona l Products prednisone 10 mg tablet 04-30 00:00: 00 06-01 23:59 :00 No [id number] RESPIRATORY 1 tablet DAILY 1 tablet DAILY (route: oral) Med Classific ation: Endocrine tramadol 50 mg tablet 05-19 00:00: 00 Yes [id number] PAIN 1 tablet 2 TIMES DAILY 1 tablet 2 TIMES DAILY (route: oral) Alternate Route: BY MOUTH. Med Classific ation: Analgesic , Anti-infl ammatory or Antipyret ic metoprolol succinate ER 50 mg tablet,exte nded release 24 hr 2023-08 00:00: 00 Yes [id number] A-FIB 1 tablet 2 TIMES DAILY 1 tablet 2 TIMES DAILY (route: oral) Med Classific ation: Cardiovas cular Therapy Agents prednisone 10 mg tablet 2023-08 0-15 00:00: 00 06-22 23:59 :00 No [id number] PAIN 3 tablet DAILY 3 tablet DAILY (route: oral) Alternate Route: BY MOUTH. Med Classific ation: Endocrine prednisone 10 mg tablet 2023-08 00:00: 00 Yes [id number] INFLAMMATIO N 1 tablet DAILY 1 tablet DAILY (route: oral) Alternate Route: BY MOUTH. Med Classific ation: Endocrine prednisone 20 mg tablet 2023-08 00:00: 00 06-29 23:59 :00 No [id number] INFLAMMATIO N 1 tablet DAILY 1 tablet [...] TO EVALUATE, OBSERVE / ASSESS, AND MONITOR, SHOP MECHANIC HELPER TO OBSERVE AND MONITOR, PROVIDE SKILLED THERAPEUTIC INTERVENTION, ACTIVITY, EDUCATION, AND TRAINING TO ADDRESS; [code = AGENCY MAY PERFORM A RESUMPTION OF CARE VISIT FOLLOWING ANY HOSPITAL ADMISSION. PT TO EVALUATE, OBSERVE / ASSESS, AND MONITOR, SHOP MECHANIC HELPER TO OBSERVE AND MONITOR, PROVIDE SKILLED THERAPEUTIC INTERVENTION, ACTIVITY, EDUCATION, AND TRAINING TO ADDRESS;] Future Scheduled Test PT/SHOP MECHANIC HELPER TO PROVIDE STAIR TRAINING [code = PT/SHOP MECHANIC HELPER TO PROVIDE STAIR TRAINING] Future Scheduled Test PT/SHOP MECHANIC HELPER TO PROVIDE GAIT TRAINING FOR IMPROVED MOBILITY AND /OR TO NORMALIZE GAIT PATTERN [code = PT/SHOP MECHANIC HELPER TO PROVIDE GAIT TRAINING FOR IMPROVED MOBILITY AND /OR TO NORMALIZE GAIT PATTERN] Future Scheduled Test THERAPEUTI C EXERCISES AND ESTABLISHING A HOME EXERCISE PROGRAM (PT/SHOP MECHANIC HELPER) [code = THERAPEUTIC EXERCISES AND ESTABLISHING A HOME EXERCISE PROGRAM (PT/SHOP MECHANIC HELPER)] Future Scheduled Test NEUROMUSCU LAR RE-EDUCATION / BALANCE / POSTURAL CONTROL (PT) [code = NEUROMUSCULAR RE-EDUCATION / BALANCE / POSTURAL CONTROL (PT)] Future Scheduled Test PT/SHOP MECHANIC HELPER TO IDENTIFY FALL RISK FACTORS; EDUCATE THE PATIENT/CAREGIVER ON WAYS TO REDUCE FALL RISK FACTORS AND ESTABLISH HOME EXERCISE PROGRAM TO MINIMIZE FALL RISK. MAY TEACH THE PATIENT FLOOR RECOVERY WHEN CLINICALLY APPROPRIATE [code = PT/SHOP MECHANIC HELPER TO IDENTIFY FALL RISK FACTORS; EDUCATE THE PATIENT/CAREGIVER ON WAYS TO REDUCE FALL RISK FACTORS AND ESTABLISH HOME EXERCISE PROGRAM TO MINIMIZE FALL RISK. MAY TEACH THE PATIENT FLOOR RECOVERY WHEN CLINICALLY APPROPRIATE] Future Scheduled Test PT TO ASSE SS / SHOP MECHANIC HELPER TO MONITOR FOR HEART FAILURE EXACERBATION AND RECORD PATIENT REPORTED WEIGHT, AND NOTIFY THE PHYSICIAN AND/OR THE RN CLINICAL ACTIVITIES ATTENDANT FOR PHYSICIAN NOTIFICATION OF HF EXACERBATION (2LB WEIGHT GAIN IN 1 DAY, 5LBS IN A WEEK OR 5 LBS OVER BASELINE; INCREASED SOB, EDEMA, NEEDING MORE PILLOWS AT NIGHT, CRACKLES IN BASIS OF THE LUNGS OR PMI SHIFT) [code = PT TO ASSESS / SHOP MECHANIC HELPER TO MONITOR FOR HEART FAILURE EXACERBATION AND RECORD PATIENT REPORTED WEIGHT, AND NOTIFY THE PHYSICIAN AND/OR THE RN CLINICAL ACTIVITIES ATTENDANT FOR PHYSICIAN NOTIFICATION OF HF EXACERBATION (2LB WEIGHT GAIN IN 1 DAY, 5LBS IN A WEEK OR 5 LBS OVER BASELINE; INCREASED SOB, EDEMA, NEEDING MORE PILLOWS AT NIGHT, CRACKLES IN BASIS OF THE LUNGS OR PMI SHIFT)] Future Scheduled Test PT TO ASSE SS / SHOP MECHANIC HELPER TO MONITOR CARDIO/RESPIRATORY SYSTEM; AND NOTIFY THE PHYSICIAN AND/OR THE RN CLINICAL ACTIVITIES ATTENDANT FOR PHYSICIAN NOTIFICATION FOR EARLY SIGNS AND SYMPTOMS OF EXACERBATION OR DETERIORATION. [code = PT TO ASSESS / SHOP MECHANIC HELPER TO MONITOR CARDIO/RESPIRATORY SYSTEM; AND NOTIFY THE PHYSICIAN AND/OR THE RN CLINICAL ACTIVITIES ATTENDANT FOR PHYSICIAN NOTIFICATION FOR EARLY SIGNS AND SYMPTOMS OF EXACERBATION OR DETERIORATION.] Future Scheduled Test PT / SHOP MECHANIC HELPER T O MONITOR AND EDUCATE ON OXYGEN SATURATION DURING ADLS/IADLS, NOTIFY PHYSICIAN AND/OR THE RN CLINICAL ACTIVITIES ATTENDANT FOR PHYSICIAN NOTIFICATION AND IF O2 SATS BELOW PHYSICIAN ORDERED PARAMETERS AFTER 10 MIN OF REST [code = PT / SHOP MECHANIC HELPER TO MONITOR AND EDUCATE ON OXYGEN SATURATION DURING ADLS/IADLS, NOTIFY PHYSICIAN AND/OR THE RN CLINICAL ACTIVITIES ATTENDANT FOR PHYSICIAN NOTIFICATION AND IF O2 SATS BELOW PHYSICIAN ORDERED PARAMETERS AFTER 10 MIN OF REST] Future Scheduled Test PT / SHOP MECHANIC HELPER M AY EDUCATE ON PAIN MANAGEMENT CLINICALLY INDICATED, INCLUDING NON-PHARMACOLOGICAL PAIN REDUCTION TECHNIQUES [code = PT / SHOP MECHANIC HELPER MAY EDUCATE ON PAIN MANAGEMENT CLINICALLY INDICATED, INCLUDING NON-PHARMACOLOGICAL PAIN REDUCTION TECHNIQUES ] Future Scheduled Test PT / SHOP MECHANIC HELPER T O INSTRUCT PATIENT/CAREGIVER ON RISK FOR HOSPITALIZATION/EMERGENCY ROOM VISITS, TEACH SIGNS AND SYMPTOMS THAT PUT PATIENT AT RISK, WHEN TO NOTIFY NURSE/PHYSICIAN OF COMPLICATIONS/DECLINE, AND WHEN TO CALL 911. [code = PT / SHOP MECHANIC HELPER TO INSTRUCT PATIENT/CAREGIVER ON RISK FOR HOSPITALIZATION/EMERGENCY [...] End Date/Time Encounter Type Admission Type Attending [facility] Care Department Encounter ID Discharge Date Discharge Status Discharge Condition Discharge Reason Percent Goals Met 2024-01-01 00:00:00 2024-07-29 00:00:00 Outpatient [facility] MARY ELLEN NAYAK [facility] [id number] 2024-07-29 00:00:00 DISCHARGE TO HOME OR SELF CARE INDEPENDEN T IN THE COMMUNITY HH OR [facility]- GOALS MET 75.00
--- OUTSIDE RECORDS SUMMARY | 2024-08-17 10:54 | XMS_ITS | Continuity of Care Document ---
Author Organization [facility] Address [address] [place] [address] [address] [place], [place] Phone [phone] Care Team Providers Care Crusher Loader Equipment Operator Name Role Phone Dayan Barragan MD Care Team Information Rec eiver Unavailable Social History Type Date Description Comments Sex Unknown
--- NOTE | 2024-08-17 11:15 | A.OFFVIS_ITS ---
Vital Signs 08/17/24 11:19 Height 5 ft 3 in Weight 183 lb 3.266 oz BMI 32.4 BP 115/60 Blood Pressure Location Lt brachial Position Sitting Pulse 82 Pulse Source Pulse Oximeter Pulse Oximetry (%) 96 Oxygen Delivery Method Room Air Intake Visit Reasons: CREST Intake Note: Patient presents for Crest. Allergies codeine Allergy (Severe, Verified 08/17/24 11:18) felt like going to propranolol Allergy (Intermediate, Verified 08/17/24 11:18) dizziness Seasonal Allergies Allergy (Intermediate, Verified 08/17/24 11:18) Sneezing, vertigo Medication List - Last Reconciled 08/17/24 by Mariah Burroughs MD acetaminophen (Tylenol) 650 mg PO QID PRN amlodipine 2.5 mg PO DAILY atorvastatin 40 mg PO DAILY calcium carbonate-vitamin D3 600 mg-20 mcg (800 unit) 1 tab PO DAILY furosemide 60 mg (1.5 x 40 mg) PO QAM 30 days levothyroxine 88 mcg PO DAILY meclizine (Dramamine (meclizine)) 25 mg PO BID PRN metoprolol succinate ER (Toprol XL) 50 mg PO BID omeprazole 40 mg PO DAILY prednisone 20 mg PO DAILY tramadol 50 mg PO BID PRN HPI Comments Details: This is a 73-year-old female with CREST who presents for follow-up. She remains on prednisone 20 mg daily. She states that when she lowers her prednisone she feels that she gets more short of breath. Her breathing however has remained stable. She continues to have low back pain. An MRI of the L-spine was ordered for evaluation. She continues to have some achiness and pain of her hands especially with fine activity such as sewing. Her Raynaud's has been well controlled with conservative measures. She denies any swelling of her joints. He was evaluated by a vessel scrapper in [place] and was referred to see a pulmonary hypertension specialist [facility] Medical History Lower thoracic back pain Bifascicular block Supplemental oxygen dependent CREST (calcinosis, Raynaud's phenomenon, esophageal dysfunction, sclerodactyly, telangiectasia) Dyspnea on exertion Pericardial effusion Complete heart block Hypothyroid Enlarged thyroid Hypertension Multinodular thyroid Telangiectasia Dysphagia Surgical History Status post cardiac pacemaker procedure S/P cardiac cath S/P tooth extraction Hx of colonoscopy H/O breast biopsy Family History Father Heart disease Sister Ovarian cancer Brother Heart attack Stroke Mother Thyroid disease Brother Asthma Social History Household Members: Spouse Housing: House Do you presently have visiting nurse or other home services: Yes ([facility] ,[facility]) Alcohol intake: never Patient Tobacco Use Status: Former Tobacco user Tobacco use type: Cigarette Years Smoked: 20 +/- e-Cigarette/Vaping Use: Never Used Second Hand Smoke Exposure: Yes Advance Directives Date on File: 02/13/24 service: No Current occupational status: retired 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 Cognitive needs: No Hearing needs: No Vision needs: No Review of Systems GI Reports heartburn Musc Reports back pain, Reports arthralgias and Denies joint swelling Physical Exam Vital Signs: Last Vital Signs Pulse 82 08/17/24 11:19 BP 115/60 08/17/24 11:19 Pulse Ox 96 08/17/24 11:19 Oxygen Delivery Method Room Air 08/17/24 11:19 BMI result Body Mass Index 32.4 Const General: cooperative, healthy appearing and comfortable Nutritional Appearance: obese Orientation/consciousness: patient oriented x3 Limitations: no limitations HEENT Other: Reduced mouth opening Head: Yes normocephalic and Yes atraumatic Mouth: moist mucous membranes Resp Effort & Inspection: normal respiratory effort and able to speak in complete sentences Auscultation: clear to auscultation bilaterally Cardio Rate: regular rate Rhythm: regular rhythm Skin Other: Numerous telangiectasias Neuro General: patient oriented x3 Extrem Other: Mild sclerodactyly No active synovitis Left ring finger with few dilated loops Fingertips are warm today Assessment & Plan Assessment & Plan (1) CREST (calcinosis, Raynaud's phenomenon, esophageal dysfunction, sclerodactyly, telangiectasia): Comment: dx 2021 (Raynaud's, sclerodactyly, telangiectasias, abnormal nailfold capillaroscopy, questionable esophageal dysmotility, +++ centromere) Code(s): M34.1 - CR(E)ST syndrome Category: Medical Plan: 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 Patient is doing well overall. She remains on prednisone 20 mg daily. Prescribed by Pulmonary. From Rheumatology standpoint it was unclear at this time whether patient requires a DMARD. There is no inflammatory arthritis appreciated however patient is on prednisone. She mentions that when she lowered her prednisone dose she gets more short of breath. Again it was unclear whether this is related to her known history of emphysema or possible pneumonitis. If patient has progressive ILD, DMARD use may be warranted. Prednisone dose is being adjusted by Pulmonary Her Raynaud's has been well controlled. She is on amlodipine 2.5 mg daily. It is prescribed by cardiology (generally too low of a dose to be effective for Raynaud's) Advised patient to continue with conservative measures for Raynaud's. Fluoxetine can be added in the future if needed Continue with omeprazole. She takes it 1 hour before supper She was evaluated by vessel scrapper at [facility] and then referred to a pulmonary hypertension specialist. 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 Needs antiresorptive agent. Given her history of sliding hiatal hernia and GERD, alendronate may not be a good option. Reclast is likely a better option, we discussed the risks and benefits of it. Patient agreed to proceed. However her PTH was significantly elevated and I would like her to be evaluated by endoc rinology 1st. Will refer her to semiconductor equipment technician (5) Increased PTH level: Code(s): R79.89 - Other specified abnormal findings of blood chemistry Category: Medical Plan: Referred to endocrinology Plan I spent 46 minutes reviewing patient's chart, evaluating patient, placing orders, counseling patient and documenting in the chart Orders: Referrals Endocrinology Referral R79.89 - Other specified abnormal findings of blood chemistry Coding Level of Care Code Est Pt Level 5 (81483) Diagnoses CREST (calcinosis, Raynaud's phenomenon, esophageal dysfunction, sclerodactyly, telangiectasia) M34.1 Lumbar radiculopathy 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
[2024-08-17 11:19] VITALS: BP 115/60; PULSE 82; O2SAT 96; BMI 32.4
== END 2024-08-17 11:51 | disposition home or self-care (01) ==
PROVIDERS: PCP Internal Medicine; Visit Provider Student in an Organized Health Care Education/Training Program
DX: M34.1 CR(E)ST syndrome (principal); M54.16 Radiculopathy, lumbar region; Z79.52 Long term (current) use of systemic steroids; M85.89 Other specified disorders of bone density and structure, multiple sites; R79.89 Other specified abnormal findings of blood chemistry
CPT/HCPCS: 99215

== ENCOUNTER → 2024-08-17 10:51 | Outpatient (BNVA) | payer MEDICARE, OTHER, SELFPAY | PROVIDERS: PCP Internal Medicine; Visit Provider Student in an Organized Health Care Education/Training Program | DX: M34.1 CR(E)ST syndrome (principal); M54.16 Radiculopathy, lumbar region; M85.89 Other specified disorders of bone density and structure, multiple sites; R79.89 Other specified abnormal findings of blood chemistry; Z79.52 Long term (current) use of systemic steroids | CPT/HCPCS: 99212 ==

== ENCOUNTER 2024-08-30 12:48 | Outpatient (AMB) | payer MEDICARE, OTHER, SELFPAY ==
--- OUTSIDE RECORDS SUMMARY | 2024-08-30 12:51 | XMS_ITS | Data Portability ---
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 Med[facility] Re[facility] LESLI LEIGH [employer] Assessment Encounter Date Assessment Date Assessment LastModified by Organization Details LastModified Time 05/02/2022 05/02/2022 Dolly is having less symptoms. She has not noted symptoms when rolling in bed. No nystagmus noted when testing the R side initially today, but then with some symptoms when rolling to L. Possible L sided BPPV but due to pt's sensitivity to symptoms and a propensity to have ongoing symptoms, R was treated today. Assess L next session and treat accordingly. Goals: 1) pt to be free of dizziness 2) pt able to roll in bed without symptoms 3) Pt I with self-treatment of BPPV 4) Neg Deven-Hallpike B [email or web address] Not available 05/02/2022 10:25:19 05/06/2022 05/06/2022 Dolly is feeling much better and she has been able to roll in bed without symptoms. R sided BPPV has resolved and Tarlton-Hallpike is negative. She has slight symptoms when testing the L. These are less intense and at this time, pt feels that they are not limiting her function. Left side was treated today with ARTIFICIAL STONE APPLICATOR. Pt prefers to D/C despite positive findings on the L and will return if these symptoms should pose any restrictions in her function. D/C PT [email or web address] Not available 05/07/2022 07:57:01 04/03/2023 04/03/2023 IE 04/03/2309/09 Plan: 1 x/week up to 10 visits over 12 weeks Plan to use CPT codes: 07946 Therapeutic Exercise 90049 Neuromuscular ReEducation 42561 Manual 80619 Therapeutic Activity A: Dolly is a 72 year old F reporting to outpatient physical therapy with signs and symptoms consistent with L GT bursitis, SIJ irritation and or piriformis syndrome. Exam findings reveal: L hip/buttocks pain, hip stiffness, Functional limitations include: dec HEP routine, standing, walking and stairs. Response to treatment: pt demonstrates initial HEP safely and with effective technique. HEP emailed Skilled PT is reasonable and indicated to address exam findings and maximize function. Next visit: 04/16/23 Goals: STG/LTG Time to Achieve Goal Progress per IE Comment STG 4 weeks indep HEP 25% STG 4 weeks walking >=20 min without inc sxs new STG 4 weeks reciprocal stairs new STG 4 weeks stand still >=20 min without inc sxs new LTG 8 weeks new LTG 8 weeks Independent in comprehensive HEP. new Treatments may include (as appropriate/as indicated): Therapeutic exercise/Neuromusc ular Reeducation/Therap eutic Activities/Attende d Electrical Stimulation for strength, ROM, flexibility, endurance, power, functional mechanics/postures /activities; coordination/motor planning/motor control; balance; canalith repositioning; proprioception; stability; self care management; home exercise instruction; manual; modalities; gait training; dry needling; taping. [email or web address] Not available 04/03/2023 15:06:17 01/26/2024 01/26/2024 Plan: 1-2 x/week for 4 weeks. Impression: R PC canalithiasis. Possible multiple canal involvement. Functional limitations include: Discomfort with rolling over in bed and looking up. Response to treatment: Lightheadedness w/o vertigo after Gin x 2, but still some vertigo with moving from forward flexion to standing upright and looking up at ceiling. Skilled PT is reasonable and indicated to address exam findings and maximize safe pain-free level of function. Next visit: trial half-somersault vs horizontal canal interventions if continuing to have sx Goals: STG/LTG Time to Achieve Goal Progress per IE Comment STG 4 weeks Dizziness Handicap Inventory score improved from 16/100 to 0/100 new STG 4 weeks Independent with self-tx BPPV new Treatments may include (as appropriate/as indicated): Therapeutic exercise(41315)/Ne uromuscular Reeducation (45124)/Manual Therapy (52606)/Therapeuti c Activities (16910)/Self-care management(93371)/ Attended Electrical Stimulation (29044)/PRN modalities/dry needling/Gait Training (12378)/canalith repositioning(9599 2) [email or web address] Not available 01/26/2024 14:35:58 01/28/2024 01/28/2024 Plan: 1-2 x/week for 4 weeks. A: Pt may have performed incomplete R Gin maneuver at home. Repeating full R Gin maneuver appears to have fully resolved sx - pt reports veil of recurrent sx lifted after tx today. Skilled PT is reasonable and indicated to address exam findings and maximize safe pain-free level of function. Next visit: trial half-somersault vs review home L Gufoni maneuver if continuing to have sx Goals: STG/LTG Time to Achieve Goal Progress per IE Comment STG 4 weeks Dizziness Handicap Inventory score improved from 16/100 to 0/100 new STG 4 weeks Independent with self-tx BPPV new Treatments may include (as appropriate/as indicated): Therapeutic exercise(76987)/Ne uromuscular Reeducation (56044)/Manual Therapy (11829)/Therapeuti c Activities (67242)/Self-care management(83842)/ Attended Electrical Stimulation (01773)/PRN modalities/dry needling/Gait Training (18071)/canalith repositioning(9599 2) [email or web address] Not available 01/28/2024 16:25:25 Plan of Treatment Reminders Order Date Submit Date Provider Last Modified By Organization Details Last Modified Time Details Appointments None record ed. Lab None record ed. Referral None record ed. Procedures None record ed. Surgeries None record ed. Imaging None record ed. Medication Orders None record ed. Patient TargetsNo targets recorded. Patient InstructionsNo instructions recorded. Reason for Referral None Reported. Results Created Date Observation Date Name Description Value Unit Range Abnormal Flag Note LastModifiedBy Organization Detail LastModifiedTime 08/01/20 22 07/30/2022 MAMMO , scree peng, tomos ynthe sis, bilat eral CLINIC AL HISTOR Y: Screen ing. TECHNI QUE: 3D mammog lily (tomos ynthes is) and 2D mammog lily (C-vie w) images are genera daisha. Images review ed with a CAD system . COMPAR TOD: Prior mammog grey back throug h 01/05/20 13. FINDIN GS: The breast parenc hyma is compos ed of scatte red areas of fibrog landul ar densit y. There are no suspic ious masses . There are no suspic ious microc alcifi cation s. The breast cleopatra ecture is normal . There has been no signif icant change compar ed to the prior study. IMPRES HIEN: No mammog raphic eviden ce of malign sunni. Annual mammog raphic screen ing recomm ended. This facili ty uses a remind er system with a target date for the next mammog tom. Breast densit y: B. There are scatte red areas of fibrog landul ar densit y. BIRADS : 1, NEGATI VE Readin g Physic hernando: Mary Ann Oliver ms [facility] (Imaging) [address], [place], [address], 08/01/2022 10:24:55 Result Notes None recorded. Problems Name Problem SNOMED Code Status Onset Date Resolution Date Notes Provider Name and Address Organization Details Recorded Time Measuremen t finding outside reference range 662870331 Completed 07/20/2013 Not Available [facility] 3 02:03:25 Benign essential hypertensi on 0510630 Active Sonia tabares, [facility] 6 08:43:18 Multiple joint pain 48202013 Completed 07/20/2013 Not Available [facility] 3 02:02:27 Primary fibromyalg ia syndrome 21816802 Active Not Available [facility] 3 03:15:35 Posterior rhinorrhea 58067318 Completed 12/25/2016 Peace Ruano NP [address] [place] [address], [phone] , [facility] 7 13:02:33 Dizziness 916437976 Completed 07/20/2013 Not Available [facility] 3 02:02:09 Raynaud's disease 876657167 Completed 12/25/2016 Peace Ruano NP [address] [place] [address], [phone] , [facility] 7 13:02:22 Limited systemic sclerosis 422648927 Active Lesli Leigh MD [address] [place] [address], [phone] , [facility] 6 08:40:52 Paronychia 41866013 Completed 12/25/2016 Peace Ruano NP [address] [place] [address], [phone] , [facility] 7 13:02:26 Finger ulcer 736218101 Completed 12/25/2016 Peace Ruano NP [address] [place] [address], [address] , [facility] 7 13:02:28 Raynaud's phenomenon 477341707 Active Lesli Leigh MD [address] [place] [address], [address] , [facility] 6 08:40:52 Benign paroxysmal positional vertigo 579384834 Active 2017 Peace Rauno NP [address] [place] [address], [address] , [facility] 8 13:35:50 Problem Notes None recorded. Procedures Surgical History Date Name Laterality Status Provider Name and Address Organization Details Recorded Time 01/28/20 24 Neuromuscular re-education completed SHANTAL LIN, PT [address] [place], [address], [facility] 01/28/2024 16:24:21 01/28/20 24 Treatment and Advice completed SHANTAL LIN, PT [address] [place] [address], [phone], [facility] 01/28/2024 16:11:11 01/26/20 24 Physical Activity Counselling completed SHATNAL LIN, PT [address] [place], [address], [facility] 01/26/2024 11:19:50 01/26/20 24 16001: PT Eval Low Complexity completed SHANTAL LIN, PT [address] [place] [address], [phone], [facility] 01/26/2024 11:19:54 01/26/20 24 Treatment and Advice completed SHANTAL LIN, PT [address] [place], [address], [facility] 01/26/2024 11:41:10 04/03/20 23 Smoking Cessation Counselling completed Jyothi Cloud, PT [address] [place], [address], [facility] 04/03/2023 11:46:14 04/03/20 23 Physical Activity Counselling completed Jyothi Cloud, PT [address] [place], [address], [facility] 04/02/2023 16:34:25 04/03/20 23 16856: PT Eval Low Complexity completed Jyothi Cloud, PT [address] [place], [address], [facility] 04/02/2023 16:34:25 04/03/20 23 Treatment and Advice completed Jyothi Cloud, PT [address] [place], [address], [facility] 04/03/2023 15:01:47 04/28/20 22 Physical Activity Counselling completed Joanna Thurman, PT [address] [place], [address], [facility] 04/28/2022 11:56:57 11/27/19 22 Physical Activity Counselling completed Jaonna Thurman, PT [address] [place], [address], [facility] 11/26/2021 09:01:22 01/01/20 19 Medicare Wellness Visit completed Lenora Johnson [facility] 12/31/2018 09:30:08 12/24/19 19 Toenail Avulsion completed Georgina Joshi, DPOpal [address] [place], [address], [facility] 12/24/2018 07:47:50 11/26/19 19 Physical Activity Counselling completed Joanna Thurman, PT [address] [place], [address], [facility] 11/26/2018 08:09:43 07/12/20 18 Physical Activity Counselling completed Joanna Thurman, PT [address] [place] [address], [address], [facility] 07/12/2018 16:58:41 03/10/20 18 Physical Activity Counselling [place], [address], [facility] 03/11/2018 07:19:23 03/10/20 18 53635: PT Eval, Moderate Complexity [place], [address], [facility] 03/11/2018 07:19:32 12/30/19 18 Medicare Wellness Visit completed Annie Renteria [facility] 12/29/2017 13:21:17 11/12/19 18 Physical Activity Counselling completed Che Woods [address] [place] [address], [address], [facility] 11/11/2017 13:04:00 11/12/19 18 06605: PT Eval [place], [address], [facility] 11/11/2017 13:04:00 07/21/20 17 Physical Activity Counselling [place], [address], [facility] 07/21/2017 19:51:12 07/21/20 17 50995: PT Eval Low Complexity [place], [address], [facility] 07/21/2017 19:51:12 12/27/19 17 61536: Therapeutic Exercise completed Jyothi Cloud, PT [address] [place], [address], [facility] 12/26/2016 13:14:34 12/27/19 17 29580: Ultrasound (1:1) completed Jyothi Cloud, PT [address] [place], [address], [facility] 12/26/2016 13:14:34 12/24/19 17 35303: Therapeutic Exercise completed Jyothi Cloud, PT [address] [place], [address], [facility] 12/23/2016 13:48:37 12/24/19 17 55558: Ultrasound (1:1) completed Jyothi Cloud, PT [address] [place], [address], [facility] 12/23/2016 13:48:21 12/17/19 17 67517: Therapeutic Exercise completed Jyothi Cloud, PT [address] [place], [address], [facility] 12/16/2016 22:06:28 11/27/19 17 Physical Activity Counselling completed Jyothi Cloud, PT [address] [place], [address], [facility] 11/26/2016 10:36:36 11/27/19 17 99361: PT Eval, Moderate Complexity completed Jyothi Cloud, PT [address] [place], [address], [facility] 11/26/2016 21:17:20 07/14/20 16 Physical Activity Counselling completed Che Woods [address] [place], [address], [facility] 07/14/2016 21:45:18 06/17/20 16 Medicare Wellness Visit completed Nuha Sanchez RN [facility] 06/17/2016 08:19:35 03/31/20 16 52818: PT Evaluation completed Enrique Zaman, PT [address] [place], [address], [facility] 03/31/2016 14:00:35 03/28/20 16 POC Strep Testing completed Imelda Godinez MA [facility] 03/31/2016 11:15:45 04/25/20 15 85882: Therapeutic Exercise completed Jyothi Cloud, PT [address] [place], [address], [facility] 04/25/2015 12:45:33 04/25/20 15 57988: Manual Therapy completed Jyothi Cloud, PT [address] [place], [address], [facility] 04/25/2015 12:45:33 04/18/20 15 52909: PT Evaluation completed Jyothi Cloud, PT [address] [place], [address], [facility] 04/18/2015 12:46:49 08/22/20 14 Incise and Drain with packing completed Peace Ruano, [employer] [address] [place], [address], [facility] 08/22/2014 14:22:12 Imaging Results Imaging Date Name Status LastModified by Organiz ation Details LastModified Time 07/30/2022 MAMMO, screening, tomosynthesis, bilateral completed [facility] (Imaging) [address], [place], [address], 08/01/2022 10:24:55 Procedure Notes None recorded. Medical Equipment None Reported. Allergies Allergen ID Allergen Name Allergen Category Reaction Reaction Severity Criticality Documentation Date Start Date Code Code System Note Provider Name and Address Organization Details Recorded Time 192021 propranol ol medicatio n Not available Not available Not available 04/15/2013 8787 RxNorm dizzy at lowes t dose Glenis Slade PA-C [address] [facility], [place], [address], [facility] 3 07:44:52 32907 codeine medicatio n Not available Not available Not available 02/06/2012 2670 RxNorm felt like she was going to Latasha Domínguez null, [facility] 3 11:34:42 Medications Name Sig Start Date Stop Date Status Note LastModified by Organization Details LastModified Time levothyro ramesh tab 75mcg 09/14 completed Not Available Not Available Not Available amox/k clav tab 875mg active Not Available Not Available Not Available prednison e tab 20mg active Not Available Not Available Not Available hydrochlo rot cap 12.5mg active Not Available Not Available Not Available meclizine tab 25mg active duplicat e Not Available Not Available Not Available ipratropi um spr 0.06% active Not Available Not Available Not Available diltiazem cap 120mg er active Not Available Not Available Not Available tizanidin e tab 4mg active Not Available Not Available No t Available levothyro ramesh tab 50mcg active Not Available Not Available Not Available metoprol tar tab 25mg active duplicat e Not Available Not Available Not Available allergy rel tab 10mg active aka Zyrtec Not Available Not Available Not Available metoprolo l tab 25mg er active Not Available Not Available Not Available Singulair 10 mg tablet Take 1 tablet every day by oral route for 30 days. 04/14 completed Not Available Not Available Not Available atorvasta tin 40 mg tablet TAKE 1 TABLET BY MOUTH EVERY DAY AT BEDTIME active Not Available Not Available No t Available pilocarpi ne 5 mg tablet active Not Available Not Available Not Available prednison e 10 mg tablet TAKE 4 TABLETS BY MOUTH DAILY FROM 12/31-01/04, 3 TABLETS DAILY FROM 01/05-01/09 , 2 TABLETS DAILY FROM 01/10-12/29 7, THEN RESUME 1 TABLET DAILY STARTING 01/15 active Not Available Not Available No t Available tizanidin e 2 mg tablet active Not Available Not Available Not Available azithromy elif 250 mg tablet Take 2 tablets PO on Day 1, then 1 tablet PO on Days 2-5 active Not Available Not Available No t Available tizanidin e 4 mg tablet TAKE 1 TO 2 TABLETS BY MOUTH AT BEDTIME DIRECTED active Not Available Not Available No t Available hydrocodo ne 5 mg-acetam inophen 325 mg tablet Take 1 tablet every 6 hours by oral route. 04/07 completed Not Available Not Available Not Available Claritin 10 mg tablet Take 1 tablet every day by oral route. 12/29 completed Not Available Not Available Not Available prednison e 5 mg tablet active Not Available Not Available Not Available amlodipin e 2.5 mg tablet TAKE 1 TABLET BY MOUTH EVERY DAY 01/13 completed now on 5mg Not Available Not Available Not Available Zyrtec 10 mg tablet Take 1 tablet every day by oral route as directed . 03/28 completed Stopped taking when went on Claritin Not Available Not Available Not Available amlodipin e 5 mg tablet TAKE 1 TABLET BY MOUTH EVERY DAY active Not Available Not Available No t Available tramadol 50 mg tablet active Not Available Not Available Not Available ondansetr on 8 mg disintegr ating tablet Place 1 tablet every 8 hours by translin gual route as needed for 3 days. 06/17 completed Not Available Not Available Not Available levothyro xine 75 mcg tablet TAKE 1 TABLET BY MOUTH EVERY DAY active Not Available Not Available No t Available ketorolac 0.5 % eye drops 04/04 completed Not Available Not Available Not Available diltiazem ER 120 mg capsule,e xtended release 12 hr Take 1 capsule every day by oral route for 30 days. 05/15 completed Not Available Not Available Not Available Nitro-Bid 2 % transderm al ointment Apply 0.5 inch tid to finger as directed 12/09 completed Not Available Not Available Not Available terbinafi ne HCl 250 mg tablet Take 1 tablet every day by oral route for 30 days. 03/28 completed Not Available Not Available Not Available Diflucan 100 mg tablet Take 1 tablet every day by oral route for 10 days. 06/07 completed Not Available Not Available Not Available meclizine 25 mg tablet TAKE 1-2 TABLET BY MOUTH EVERY 6 HOURS NEEDED active Not Available Not Available No t Available cephalexi n 500 mg capsule Take 1 capsule 3 times a day by oral route. active Not Available Not Available No t Available cevimelin e 30 mg capsule active Not Available Not Available Not Available hydrochlo rothiazid e 12.5 mg capsule TAKE ONE CAPSULE BY MOUTH ONCE EVERY DAY active Not Available Not Available No t Available omeprazol e 20 mg capsule,d elayed release active Not Available Not Available Not Available cephalexi n 500 mg tablet Take 1 tablet 3 times a day by oral route for 10 days. 01/31 completed Not Available Not Available Not Available hydrochlo rothiazid e 25 mg tablet active Not Available Not Available Not Available metoprolo l succinate ER 25 mg tablet,ex tended release 24 hr TAKE 1 TABLET BY MOUTH EVERY DAY active Not Available Not Available No t Available ibuprofen 600 mg tablet Take 1 tablet every day by oral route. active Pt. states only takes small amount at night d/t feeling it may interact ion w/amlodi pine- pt. reports high HR and swelling in feet. Not Available Not Available Not Available albuterol sulfate HFA 90 mcg/actua tion aerosol inhaler INHALE 2 PUFFS EVERY 6 HOURS NEEDED FOR WHEEZING OR SHORTNES S OF BREATH active Not Available Not Available No t Available ipratropi um bromide 42 mcg (0.06 %) nasal spray [place] 2 sprays 3 times a day by intranas al route for 7 days. 2012 active Not Available Not Available Not Avai lable betametha sone dipropion ate 0.05 % topical ointment active Not Available Not Available Not Available clotrimaz ole 1 % topical cream APPLY TO THE AFFECTED AND SURROUND ING AREAS OF SKIN BY TOPICAL ROUTE 2 TIMES PER DAY IN THE MORNING AND EVENING 07/05 completed Not Available Not Available Not Available naproxen 500 mg tablet active Not Available Not Available Not Available amoxicill in 875 mg-potass ium clavulana te 125 mg tablet Take 1 tablet every 12 hours by oral route for 7 days. active Not Available Not Available No t Available Bactrim DS 800 mg-160 mg tablet Take 1 tablet every 12 hours by oral route for 7 days. 03/28 completed Not Available Not Available Not Available cyclobenz aprine 5 mg tablet Take 1 tablet 3 times a day by oral route. 06/07 completed Not Available Not Available Not Available melatonin 1 mg tablet 1 tab at night for sleep active Not Available Not Available No t Available Zyrtec active Not Available Not Availa ble Not Available multivita min active Not Available Not Available Not Available skullcap 1 eye drop full w/ water BID 01/13 completed Not Available Not Available Not Available hydrochlo rothiazid e 12.5 mg tablet Take 1 tablet every day by oral route. 09/15 completed Not Available Not Available Not Available diclofena c 1 % topical gel active Not Available Not Available Not Available levothyro xine 75 mcg capsule active Not Available Not Available Not Available Anoro Ellipta 62.5 mcg-25 mcg/actua tion powder for inhalatio n active Not Available Not Available Not Available Flonase Allergy Relief 50 mcg/actua tion nasal spray,phyllis pension Inhale 2 sprays every day by intranas al route. 06/17 completed Not Available Not Available Not Available Vitals None Recorded Social History Question Answer Notes LastModified by Organization Details LastModified Time Tobacco Smoking Status Former Smoker Maegan Chavez LPN null, [facility] 02/06/2012 14:55:41 Do You Have An Advance Directive? No Discussed And Gave Form 01/02/2014. Sc Information not available 01/02/2014 What Is Your Level Of Alcohol Consumption? None [email or web address] Information not available 11/18/2012 Do You Wear A Helmet When Biking? No Information not available 01/25/2015 Are You Blind Or Do You Have Difficulty Seeing? No Information not available 01/02/2014 What Is Your Level Of Caffeine Consumption? None Information not available 12/29/2017 How Much Tobacco Do You Chew? None Information not available 12/01/2012 Are You Deaf Or Do You Have Serious Difficulty Hearing? No Information not available 01/02/2014 What Type Of Diet Are You Following? VEGAN [email or web address] Information not available 06/17/2016 Which Illicit Or Recreational Drugs Have You Used? None Information not available 01/25/2015 Do You Or Have You Ever Used E-cigarettes Or Vape? Never Used Electronic Cigarettes Information not available 04/04/2019 Education 4 Year College Information not available 01/25/2015 What Is Your Occupation? [employer]ing [employer]--retire d 2016 Information not available 12/29/2017 How Many Days In The Past Year Have You Had A Heavy Drinking Consumption (4+ Female, 5+ Male)? 0 Information not available 12/01/2012 Are There Any Guns Present In Your Home? No Information not available 01/02/2014 Live Alone Or With Others? With Others Information not available 01/02/2014 Does The Patient Have Difficulty Speaking Cambodian? No Information not available 01/02/2014 Does The Patient Have Difficulty Reading Cambodian? No Information not available 01/02/2014 Patient Has Health Care Proxy Signed And In Chart No [email or web address] Information not available 07/01/2018 CCM Consent Discussion 12/29/2017 [email or web address] Information not available 01/01/2018 Marital Status Bi - Safe Relationship Information not available 01/02/2014 Mosquito Repellent Used Routinely Yes Information not available 01/25/2015 What Was The Date Of Your Most Recent Tobacco Screening? 03/01/2019 Information not available 03/23/2019 How Many Children Do You Have? 2 1970, 1989 Information not available 01/02/2014 Seat Belts Used Routinely No Information not available 01/02/2014 Are You Sexually Active? Yes Information not available 12/01/2012 Smoke Alarm In Home Yes Information not available 01/02/2014 Do You Or Have You Ever Used Smokeless Tobacco? Never Used Smokeless Tobacco Information not available 04/04/2019 How Much Tobacco Do You Smoke? No Information not available 04/04/2019 General Stress Level Low Information not available 01/25/2015 Do You Use Sunscreen Routinely? Yes Information not available 01/02/2014 Sex: Unknown Functional Status Question Answer Note LastModified by Organization D etails LastModified Time Do you have difficulty walking or climbing stairs? No Information not available 01/02/2014 Do you have difficulty doing errands alone? No Information not available 01/02/2014 Do you have difficulty dressing or bathing? No Information not available 01/02/2014 Mental Status Question Answer Note LastModified by Organization D etails LastModified Time Do you have difficulty concentrating, remembering or making decisions? No Information no t available 01/02/2014 Family History Relationship Description Onset Age of this Age Resolved Age Notes LastModified by Organization Details LastModified Time Father Gout [email or web address] Not available 13:47:59 Medical History Condition Response Hyperlipidemia Y Rheumatoid Arthritis Hypothyroid Y NEUROLOGIC Hypertension Y RHEUMATOLOGIC Y Gynecological HistoryNo gynecological history recorded. Obstetrics History GPAL:G 0 P 0 0 0 0 Immunizations Vaccine Type Date Status Note Provider Nam e and Address Organization Details Recorded Time Influenza, split virus, quadrivalent, PF 4 completed Not Available [facility] 09/17/2019 02:18:56 Influenza, split virus, trivalent, PF 4 [facility] 02:31:43 zoster live 4 completed Not [facility] 09/17/2019 02:16:36 Tdap 5 completed Not Available [facility] 09/17/2019 02:19:26 Influenza, split virus, quadrivalent, PF 5 completed Not Available [facility] 09/17/2019 02:25:39 Td(adult) unspecified formulation 4 [facility] 11:05:45 Influenza, high-dose, trivalent, PF 6 completed Not Available [facility] 09/17/2019 02:21:05 Influenza, high-dose, trivalent, PF 8 completed Not Available [facility] 09/17/2019 02:35:35 Influenza, high-dose, trivalent, PF 9 completed Not Available [facility] 09/17/2019 02:25:35 Past Encounters Encounter ID Performer Location Encounter Start Date Encounter Closed Date Diagnosis/Indication Diagnosis SNOMED-CT Code Diagnosis ICD10 Code [id number] Rheumatol rosangela [address] [address] 02/06/2012 14:37:13 02/09/2012 08:16:56 [id number] Rheumatza adames [address] [place] [address] 1 03/08/2012 15:44:48 03/08/2012 16:12:52 [id number] Suresh adames [address] [place] [address] 1 08/09/2012 07:58:37 08/16/2012 08:50:53 [id number] Vida ROY [facility], OFFICE [address] [place] [address] 1 11/04/2012 11:15:14 11/04/2012 13:42:01 [id number] Vida ROY [facility], OFFICE [address] [place] [address] [place] [address] 1 11/18/2012 16:14:15 11/19/2012 07:57:17 [id number] SUNNY Pham [facility], OFFICE [address] [place] [address] 1 11/30/2012 14:08:06 12/01/2012 07:49:12 [id number] Idalia [facility], [address] [place] [address] 1 12/01/2012 09:56:09 12/02/2012 09:24:43 [id number] Idalia [facility], [address] [place] [address] 1 12/13/2012 09:52:08 12/14/2012 07:42:08 [id number] Michelle Jett , [facility], OFFICE [address] [facility] [place] [address] 1 12/17/2012 08:28:56 12/17/2012 09:27:12 Screening mammography [id number] Nuha Iniguez MA , [facility], OFFICE [address] [facility] [place], [place] [address] 02/03/2013 09:46:53 02/03/2013 10:54:35 [id number] Glenis Slade PA-C [facility], OFFICE [address] [place] [address] [place] [address] 1 02/17/2013 08:57:54 02/17/2013 09:34:44 [id number] Yun Sullivan MA , [facility], OFFICE [address] [facility] [place], [place] [address] 1 03/10/2013 07:07:22 03/10/2013 07:45:07 [id number] Lesli Leigh MD , [facility], OFFICE [address] [facility] [place] [address] 1 04/15/2013 07:18:02 04/15/2013 07:42:12 Benign essential hypertension 6060528 Raynaud's disease 400136 006 Dizziness 107912302 [id number] Idalia [facility], [address] [place] [address] 1 05/23/2013 09:24:44 05/26/2013 09:02:53 Benign paroxysmal positional vertigo 754252570 [id number] Idalia [facility], [address] [place] [address] 1 05/30/2013 14:59:03 06/01/2013 14:06:23 Benign paroxysmal positional vertigo 858059587 [id number] Idalia [facility], [address] [place] [address] 1 06/02/2013 07:50:52 06/03/2013 08:12:15 Benign paroxysmal positional vertigo 762156621 [id number] Idlaia Cruz [facility], [address] [place] [address] 1 06/08/2013 10:00:19 06/09/2013 08:19:39 Benign paroxysmal positional vertigo 956509113 [id number] Rheumatol ogy, [address] [place] [address] 1 08/19/2013 10:39:26 08/22/2013 10:10:10 Raynaud's disease 843372581 Limited sy stemic sclerosis 321396644 [id number] Nuha Iniguez MA , [facility], OFFICE [address] [place] [address] [place] [address] 1 09/15/2013 09:05:33 09/15/2013 09:56:59 Benign paroxysmal positional vertigo 013044660 Carpal mayank jason syndrome 87144559 Nasal congestion 9607657 0 [id number] Nuha Iniguez MA , [facility], OFFICE [address] [facility] [place] [address] 1 10/27/2013 10:03:07 10/27/2013 11:03:06 Influenza vaccine needed 2711298348 106 Paronychia 56760861 [id number] [facility], [address] [place] [address] 1 12/19/2013 15:24:50 12/19/2013 16:11:32 Benign paroxysmal positional vertigo 686213888 [id number] [facility], [address] [place] [address] 1 12/21/2013 17:13:35 12/22/2013 08:19:10 Benign paroxysmal positional vertigo 832922258 [id number] [facility], [address] [place] [address] 1 12/27/2013 14:54:41 12/28/2013 16:20:22 Benign paroxysmal positional vertigo 178894822 [id number] [facility] [address] [facility] [place] [address] 1 01/02/2014 08:21:00 01/02/2014 09:17:37 Adult health examination 974366511 Screening for malignant neoplasm of colon 076685375 Varicella vaccination 68 511320 Administra tion of diphtheria, pertussis, and tetanus vaccine 453406477 Screening for malignant neoplasm of cervix 056303844 Benign ess ential hypertension 2700665 Hypothyroidism 75206404 [id number] [facility], [address] [place] [address] 1 07/03/2014 13:01:38 07/04/2014 19:55:43 Hip pain 61735840 [id number] [facility] [address] [place] [address] [place] [address] 1 07/04/2014 07:58:34 07/04/2014 08:30:29 Influenza vaccine needed 4844928299 106 Varicella vaccination 68 817846 Benign ess ential hypertension 9855226 Hypothyroidism 71893086 [id number] [facility], [address] [place] [address] 1 07/06/2014 08:31:30 07/07/2014 12:32:29 Hip pain 64970416 [id number] Che Garcia [facility], [address] [facility] [place] [place] [address] 1 07/13/2014 15:06:16 07/13/2014 16:21:42 Hip pain 18380534 [id number] Che Woods [facility], [address] [place] [address] 1 07/20/2014 09:27:05 07/21/2014 08:20:11 Hip pain 71140927 [id number] Ofelia Lopes LPN , [facility], OFFICE [address] [facility] [place] [address] 1 08/22/2014 13:55:53 08/22/2014 14:19:51 Onychia 869529595 [id number] [place] Castillo, [facility], OFFICE [address] [facility] [place] [address] 1 09/11/2014 14:07:15 09/11/2014 14:56:24 Paronychia of finger 627882698 [id number] Kylah ROY, [facility], OFFICE [address] [place] [address] 1 01/25/2015 13:19:27 01/25/2015 14:20:09 Screening for malignant neoplasm of colon 201581646 Screening mammography 24 052983 Adult heal th examination 354184928 Administra tion of diphtheria, pertussis, and tetanus vaccine 569414854 [id number] Yun Sullivan MA , [facility], OFFICE [address] [place] [address] 1 04/17/2015 08:54:07 04/17/2015 09:21:59 Lifestyle 046857155 Sciatica 72139685 [id number] Jyothi Cloud PT Physical Therapy, [address] [address] 1 04/18/2015 10:08:11 04/18/2015 16:11:08 Hip pain 00689900 Sciatica 33674264 Inflammati on of sacroiliac joint 17991456 [id number] Jyothi Cloud PT Physical Therapy, [address] [address] 1 04/25/2015 08:36:09 04/26/2015 08:47:50 Hip pain 61842399 Sciatica 92883377 Inflammati on of sacroiliac joint 94465296 [id number] Yun Sullivan MA , [facility], OFFICE [address] [place] [address] 1 05/16/2015 14:21:12 05/16/2015 15:02:05 Influenza vaccine needed 2791567779 106 Onychomycosis 257246445 Lifestyle 000671514 [id number] Peace Ruano NP , [facility], OFFICE [address] [place] [address] 1 06/07/2015 14:19:45 06/07/2015 14:52:54 Onychomycosis 194554429 B35.1 [id number] [facility], [address] [address] 1 06/21/2015 07:50:12 06/21/2015 10:45:22 Benign paroxysmal positional vertigo 125560728 H81.13 [id number] Che Garcia [facility], [address] [address] 1 06/25/2015 12:54:48 06/25/2015 18:04:06 Benign paroxysmal positional vertigo 350554324 H81.13 [id number] Peace Ruano NP , [facility], OFFICE [address] [place] [address] 1 07/05/2015 14:11:01 07/05/2015 15:37:21 Benign essential hypertension 1235003 I10 Raynaud's disease 594593 006 I73.00 [id number] Vida Orellana Rheumatol [facility], [address] [address] 1 07/06/2015 08:41:00 07/16/2015 07:48:13 Raynaud's disease 460928753 I73.00 Limited sy stemic sclerosis 409585569 M34.9 Paronychia 50986645 L03. 167 [id number] Lesli Leigh MD Rheumatol [address] [address] 1 09/07/2015 08:44:36 09/07/2015 12:07:26 Limited systemic sclerosis 674046321 M34.9 Finger ulcer 252635019 L 98.499 Raynaud's phenomenon 266 972817 I73.00 [id number] [facility], [address] [address] 1 10/02/2015 09:31:48 10/03/2015 23:23:19 Benign paroxysmal positional vertigo 606032765 H81.13 [id number] Imelda suggs MA , [facility], OFFICE [address] [place] [address] 1 03/28/2016 10:30:17 03/28/2016 11:39:24 Acute upper respiratory infection 71269793 J06.9 Coxsackie virus disease 528130612 B34.1 [id number] Belkis Tabares MD , [facility], OFFICE [address] [place] [address] 1 03/29/2016 09:56:21 03/29/2016 10:42:35 Spasm of back muscles 461809575 M62.958 [id number] Enrique Austyn, PT Physical Therapy, [address] [place] [address] 1 03/31/2016 13:37:00 04/01/2016 08:39:49 Low back pain 588414466 M54.5 Sacroiliac joint pain 20 9457375 M53.3 [id number] Jeanine Valera , [facility], OFFICE [address] [facility] [place] [address] 1 04/07/2016 11:48:34 04/07/2016 13:29:26 Sinusitis 93603004 J32.9 Anti-nucle ar factor detected 722144486 R76.8 [id number] Lesli Leigh MD Rheumatol ogy, [address] [place] [address] 1 04/16/2016 08:55:37 04/16/2016 09:34:02 Limited systemic sclerosis 943554819 M34.9 Pneumonitis 636938836 J1 2.9 Raynaud's phenomenon 266 827070 I73.00 Primary fi bromyalgia syndrome 50806588 M79.7 [id number] Peace Ruano NP , [facility], OFFICE [address] [facility] [place] [address] 1 06/17/2016 08:15:19 06/17/2016 09:12:56 Adult health examination 473168317 Z00.00 Counseling 032396446 Z71 .9 Active or passive immunization 897920151 Z23 Subconjunc tival hemorrhage 13365348 H11.31 Benign ess ential hypertension 5940478 I10 [id number] [facility], [address] [place] [address] 1 07/14/2016 15:50:36 07/15/2016 08:06:45 Benign paroxysmal positional vertigo 429861106 H81.13 [id number] [facility], [address] [place] [address] 1 07/31/2016 11:14:06 08/04/2016 07:42:56 Benign paroxysmal positional vertigo 589543805 H81.13 [id number] [facility], [address] [place] [address] 1 08/06/2016 16:20:02 08/07/2016 10:57:56 Benign paroxysmal positional vertigo 233462280 H81.13 [id number] Che Chuck [facility], [address] [address] 08/21/2016 07:51:48 08/21/2016 16:07:07 Benign paroxysmal positional vertigo 014675195 H81.13 [id number] Che [facility], [address] [place] [address] 1 09/15/2016 09:22:57 09/15/2016 15:40:37 Benign paroxysmal positional vertigo 717593736 H81.13 [id number] Enrique Jones MD , [facility], [address] [address] 1 09/18/2016 08:45:46 09/18/2016 09:28:05 Palpitations 36735845 R00.2 Obesity 712095935 E66.9 [id number] Jyothi Cloud, PT Physical Therapy, [address] [address] 1 11/26/2016 10:06:14 11/27/2016 08:07:38 Low back pain 092759440 M54.5 Sacroiliac joint pain 20 7449616 M53.3 [id number] Ambrocio Baugh MD Sports Medicine, [address] [address] 1 12/04/2016 13:20:22 12/05/2016 09:20:39 Hip pain 93429978 M25.551 M25.062 [id number] Jyothi Cloud, PT Physical Therapy, [address] [address] 1 12/16/2016 16:10:26 12/17/2016 13:16:15 Low back pain 818385878 M54.5 Sacroiliac joint pain 20 0482819 M53.3 [id number] Jyothi Cloud, PT Physical Therapy, [address] [address] 1 12/23/2016 13:06:34 12/23/2016 14:08:48 Low back pain 400928621 M54.5 Sacroiliac joint pain 20 4956978 M53.3 [id number] Peace Ruano NP , [facility], OFFICE [address] [place] [address] 1 12/25/2016 12:38:08 12/25/2016 13:16:45 Limited systemic sclerosis 318461690 M34.9 Benign ess ential hypertension 3512224 I10 [id number] Jyothi Cloud, PT Physical Therapy, [address] [address] 1 12/26/2016 12:57:05 12/26/2016 14:20:48 Low back pain 752174836 M54.5 Sacroiliac joint pain 20 7879113 M53.3 [id number] Jyothi Cloud, PT Physical Therapy, [address] [address] 1 12/26/2016 14:53:31 12/26/2016 14:53:47 [id number] Belkis Tabares MD , [facility], OFFICE [address] [place] [address] 1 01/13/2017 13:02:05 01/13/2017 16:52:17 Acute allergic serous otitis media 04558948 H65.037 [id number] TIMMY Narayanan , [facility], OFFICE [address] [place] [address] 1 05/06/2017 15:02:11 05/06/2017 15:30:13 Hypothyroidism 41981542 E03.9 Benign ess ential hypertension 5701798 I10 [id number] Lesli Leigh MD Rheumatol ogy, [address] [address] 1 05/25/2017 13:32:18 05/25/2017 16:45:06 Limited systemic sclerosis 024538271 M34.9 Tachycardia 4496242 R00. 0 Raynaud's phenomenon 266 943506 I73.00 Bursitis of shoulder 239 450479 M75.51 [id number] [facility], [address] [address] 1 07/21/2017 08:51:26 07/21/2017 20:28:31 Shoulder pain 65993555 M25.511 M25.512 Dizziness 574335626 R42 [id number] Lesli Leigh MD Rheumatol ogy, [address] [address] 1 07/31/2017 09:54:36 07/31/2017 11:14:12 Limited systemic sclerosis 162643323 M34.9 Paronychia of finger 444 722381 L03.019 Raynaud's phenomenon 266 968493 I73.00 [id number] Che [facility], [address] [address] 1 08/03/2017 11:25:35 08/03/2017 12:22:14 Shoulder pain 16226178 M25.511 M25.512 Dizziness 573442452 R42 [id number] Stem Chuck [facility], [address] [address] 1 08/06/2017 11:19:10 08/07/2017 09:54:28 Shoulder pain 29276290 M25.511 M25.512 Dizziness 876885495 R42 [id number] [facility], [address] [address] 1 08/25/2017 12:22:51 08/25/2017 12:58:39 Shoulder pain 13937402 M25.511 M25.512 Dizziness 904548344 R42 [id number] [facility], [address] [address] 1 11/11/2017 12:23:27 11/12/2017 16:37:09 Benign paroxysmal positional vertigo 868081064 H81.12 [id number] Peace Ruano NP , [facility], OFFICE [address] [place] [address] 1 11/12/2017 14:08:00 11/12/2017 16:23:31 Dizziness 009263212 R42 Screening mammography 24 834241 Z12.31 Acute sinusitis 46975951 J01.90 Screening for malignant neoplasm of colon 034401182 Z12.11 [id number] Stem Chuck [facility], [address] [address] 1 11/12/2017 14:34:59 11/12/2017 16:34:28 Benign paroxysmal positional vertigo 792691331 H81.12 [id number] [facility], [address] [place] [address] 1 11/17/2017 09:22:32 11/17/2017 12:14:15 Benign paroxysmal positional vertigo 408469923 H81.12 [id number] Che Chuck [facility], [address] [place] [address] 1 12/02/2017 11:22:19 12/02/2017 13:39:38 Benign paroxysmal positional vertigo 724474883 H81.12 [id number] [facility], [address] [place] [address] 1 12/22/2017 12:26:25 12/22/2017 19:48:05 Benign paroxysmal positional vertigo 944408298 H81.12 [id number] TIMMY Macias, [facility], OFFICE [address] [facility] [place] [address] 1 12/23/2017 10:12:02 12/23/2017 12:20:02 Benign paroxysmal positional vertigo 387299253 H81.13 [id number] [facility], [address] [place] [address] 1 12/23/2017 12:52:51 12/23/2017 13:50:58 Benign paroxysmal positional vertigo 524585874 H81.12 [id number] [facility], [address], [place] [address] 1 12/24/2017 11:19:03 12/27/2017 21:15:10 Benign paroxysmal positional vertigo 600924882 H81.12 [id number] TIMMY Macias, [facility], OFFICE [address] [facility] [place] [address] 1 12/29/2017 13:16:02 12/29/2017 14:17:05 Adult health examination 553646601 Z00.00 Counseling 024504872 Z71 .9 Depression screening 171 522225 Z13.89 Benign ess ential hypertension 4453923 I10 Screening for malignant neoplasm of colon 799602263 Z12.11 Acute sinusitis 24068646 J01.90 Hypercholesterolemia 136 00336 E78.00 Screening mammography 24 640079 Z12.31 Dizziness 917278552 R42 [id number] [facility], [address] [place] [address] 1 12/29/2017 14:16:43 12/30/2017 07:59:55 Benign paroxysmal positional vertigo 852079852 H81.12 [id number] [facility], [address] [address] 1 12/31/2017 13:23:45 12/31/2017 14:07:25 Benign paroxysmal positional vertigo 650382189 H81.12 [id number] [facility], [address] [place] [address] 1 03/10/2018 13:59:23 03/11/2018 12:12:38 Shoulder pain 11333484 M25.332 [id number] Che [facility] Physical [facility], [address] [address] 1 03/22/2018 15:52:29 03/22/2018 16:36:57 Shoulder pain 04939597 M25.144 [id number] Joanna Thurman, PT Physical Therapy, [address] [address] 1 07/12/2018 16:22:54 07/13/2018 09:48:57 Benign paroxysmal positional vertigo 056720859 H81.11 [id number] Joanna Thurman, PT Physical Therapy, [address] [address] 1 07/14/2018 12:05:50 07/14/2018 14:01:38 Benign paroxysmal positional vertigo 968620987 H81.11 [id number] Peace Ruano NP FP, [facility], OFFICE [address] [place] [address] 1 07/15/2018 13:01:26 07/15/2018 13:43:13 Benign essential hypertension 0219360 I10 Active or passive immunization 540814071 Z23 Benign par oxysmal positional vertigo 573601345 H81.10 [id number] [facility], [address] [address] 1 08/17/2018 11:19:11 08/17/2018 21:10:32 Benign paroxysmal positional vertigo 227130886 H81.12 [id number] [facility], [address] [place] [address] 1 08/19/2018 08:53:11 08/20/2018 21:43:05 Benign paroxysmal positional vertigo 151492788 H81.12 [id number] [facility], [address] [place] [address] 1 08/26/2018 09:53:12 08/26/2018 16:32:41 Benign paroxysmal positional vertigo 351547999 H81.12 [id number] Peace Ruano NP , [facility], OFFICE [address] [place] [address], [place] [address] 1 11/08/2018 07:28:42 11/08/2018 07:50:11 Onychomycosis 842042643 B35.1 [id number] Joanna Thurman, PT Physical Therapy, [address] [place] [address] 1 11/25/2018 10:47:08 11/26/2018 08:18:11 Benign paroxysmal positional vertigo 302522071 H81.12 [id number] Joanna Thurman, PT Physical Therapy, [address] [place] [address] 1 11/26/2018 09:26:09 11/26/2018 10:25:05 Benign paroxysmal positional vertigo 813248982 H81.12 [id number] Caprice Bonner D.O. , [facility], OFFICE [address] [place] [address], [place] [address] 1 12/09/2018 10:44:38 12/09/2018 11:19:40 Ingrowing toenail 160885997 L60.0 Onychomycosis 779616131 B35.1 Pre-surger y evaluation 402010598 Z01.818 Cataract of left eye 591 9889495 5704674 H26.9 [id number] Georgina Joshi DPM Podiatry, [address] [address] 1 12/23/2018 07:44:49 12/23/2018 10:17:20 Ingrowing toenail 937967546 L60.0 Pain in toe 408419496 M7 9.054 [id number] Peace Ruano NP FP, [facility], OFFICE [address] [place] [address], [place] [address] 1 12/31/2018 09:26:21 12/31/2018 10:18:19 Adult health examination 661842106 Z00.00 Counseling 723748751 Z71 .9 Depression screening 171 370565 Z13.89 Benign ess ential hypertension 2457368 I10 [id number] Georgina Joshi DPM Podiatry, [address] [address] 1 01/05/2019 13:09:59 01/06/2019 13:32:18 Ingrowing toenail 564777693 L60.0 Pain in toe 405830741 M7 9.702 [id number] Kitty Osorio RN , [facility], OFFICE [address] [place] [address], [place] [address] 1 02/01/2019 14:24:10 02/01/2019 14:45:25 Benign essential hypertension 2530050 I10 [id number] Peace Ruano NP FP, [facility], OFFICE [address] [place] [address], [place] [address] 1 03/01/2019 08:32:48 03/01/2019 09:09:54 Palpitations 17410946 R00.2 Benign ess ential hypertension 2191478 I10 [id number] Peace Ruaon NP FP, [facility], OFFICE [address] [place] [address], [place] [address] 1 04/04/2019 08:47:16 04/05/2019 15:13:04 Benign essential hypertension 8192268 I10 [id number] Michelle Luevano LPN FP, [facility], OFFICE [address] [place] [address], [place] [address] 1 07/07/2019 06:59:44 07/08/2019 06:48:53 Active or passive immunization 889131627 Z23 [id number] Joanna Thurman PT Physical Therapy, [address] [address] 1 03/18/2021 14:17:44 03/19/2021 09:00:32 Benign paroxysmal positional vertigo 793956810 H81.12 [id number] Joanna Bucala, PT Physical Therapy, [address], [place] [address] 1 03/25/2021 08:51:43 03/25/2021 10:50:40 Benign paroxysmal positional vertigo 781903085 H81.12 [id number] Joanna Thurman, PT Physical Therapy, [address], [place] [address] 1 03/26/2021 10:52:43 03/26/2021 11:48:09 Benign paroxysmal positional vertigo 732208987 H81.12 [id number] Joanna Thurman, PT Physical Therapy, [address], [place] [address] 1 03/28/2021 09:24:44 03/28/2021 10:20:20 Benign paroxysmal positional vertigo 425117614 H81.12 [id number] Joanna Thurman, PT Physical Therapy, [address], [place] [address] 1 04/12/2021 08:24:37 04/12/2021 09:25:30 Benign paroxysmal positional vertigo 837642742 H81.12 [id number] Joanna Thurman, PT Physical Therapy, [address], [place] [address] 1 04/15/2021 14:53:19 04/15/2021 15:45:40 Benign paroxysmal positional vertigo 126190128 H81.12 [id number] Joanna Thurman, PT Physical Therapy, [address], [place] [address] 1 04/19/2021 08:27:31 04/19/2021 09:32:27 Benign paroxysmal positional vertigo [id number] H81.12 [id number] Joanna Thurman, PT Physical Therapy, [address], [place] [address] 04/29/2021 09:53:42 04/29/2021 11:05:00 Benign paroxysmal positional vertigo [id number] H81.12 [id number] Joanna Thurman, PT Physical Therapy, [address] [place] [address] 05/07/2021 07:45:05 05/08/2021 07:52:53 Benign paroxysmal positional vertigo [id number] H81.12 [id number] Joanna Thurman, PT Physical Therapy, [address], [place] [address] 05/15/2021 10:50:25 05/15/2021 12:12:27 Benign paroxysmal positional vertigo [id number] H81.12 [id number] Joanna Thurman, PT Physical Therapy, [address], [place] [address] 11/26/2021 08:24:40 11/26/2021 09:31:24 Benign paroxysmal positional vertigo [id number] H81.13 [id number] Joanna Thurman, PT Physical Therapy, [address], [place] [address] 11/28/2021 11:26:26 11/28/2021 12:31:18 Benign paroxysmal positional vertigo [id number] H81.13 [id number] Joanna Thurman, PT Physical Therapy, [address] [place] [address] 12/02/2021 10:24:19 12/02/2021 11:05:50 Benign paroxysmal positional vertigo [id number] H81.13 [id number] Joanna Thurman, PT Physical Therapy, [address] [place] [address] 12/06/2021 09:23:36 12/06/2021 10:00:25 Benign paroxysmal positional vertigo [id number] H81.13 [id number] Joanna Thurman, PT Physical Therapy, [address] [place] [address] 04/28/2022 11:21:21 04/28/2022 12:29:18 Benign paroxysmal positional vertigo [id number] H81.13 [id number] Joanna Thurman, PT Physical Therapy, [address] [place] [address] 05/02/2022 09:55:35 05/02/2022 10:53:33 Benign paroxysmal positional vertigo [id number] H81.13 [id number] Joanna Thurman, PT Physical Therapy, [address] [place] [address] 05/06/2022 11:42:39 05/07/2022 08:41:59 Benign paroxysmal positional vertigo [id number] H81.13 [id number] Jyothi Cloud, PT Physical Therapy, [address] [place] [address] 04/03/2023 11:14:07 04/03/2023 15:28:29 Left-sided piriformis syndrome [id number] M54.32 Trochanter ic bursitis of left hip [id number] M70.62 Inflammati on of sacroiliac joint [id number] M46.1 [id number] DAJA LIN, PT Physical Therapy, [address] [place] [address] 01/26/2024 10:47:07 01/26/2024 14:46:41 Benign paroxysmal positional vertigo [id number] H81.11 [id number] DAJA LIN, PT Physical Therapy, [address] [place] [address] 01/28/2024 15:48:34 01/28/2024 17:01:06 Benign paroxysmal positional vertigo [id number] H81.11 Health Concerns Section Related Observation LastModified by Organization Detai ls LastModified Time None Recorded Concern Status LastModified by Organization Details LastModified Time None Recorded Advance Directives Directive N: Discussed and gave form . sc Payers Encounter Date Sequence Insurance Name Policy Number Policy Arizmendi Covered Member ID Arizmendi Member ID Guarantor Name 05/02/2022 2 [facility] 1 (MEDICARE SUPPLEMENT) [id number] Rajani Mckeon Karinai [id number] Rajani Echeverrianathalia 05/02/2022 1 [place] [employer] Rajani Mckeon Hailey [id number] Rajani Hailey 05/06/2022 2 [facility] 1 (MEDICARE SUPPLEMENT) [id number] Rajani Mckeon Juwananoopkaycei [id number] Rajani Echeverriala nenai 05/06/2022 1 [place] [employer] Rajani Mckeon Hailey [id number] Rajani Karinai 04/03/2023 2 [facility] 1 (MEDICARE SUPPLEMENT) [id number] Rajani Collinsi [id number] Rajani Collinsi 04/03/2023 1 [place]: [facility] Rajani Collinsi [id number] Rajani Parikhski 01/26/2024 2 [facility] 1 (MEDICARE SUPPLEMENT) [id number] Rajani Collinsi [id number] Rajani Parikhski 01/26/2024 1 [place] [facility] Rajani Collinsi [id number] Rajani Parikhski 01/28/2024 2 [facility] 1 (MEDICARE SUPPLEMENT) [id number] Rajani Collinsi [id number] Rajani Parikhski 01/28/2024 1 [place] [facility] Rajani Collinsi [id number] Rajani Collinsi Notes Date Note Type Note Provider Name and Address Organization Details Recorded Time 05/02/2022 text/html Dolly statest th at she is feeling better. She reports that she has not been having dizziness when rolling in bed. Joanna Thurman, PT [address] [place], [address], [facility] [place] 05/02/2022 10:25:34 05/06/2022 text/html Dolly states bety t she has been feeling pretty good. I have only felt it once a tiny bit when I was rolling in bed. Joanna Thurman, PT [address] [place], [address], [facility] [place]/07/2022 07:57:17 04/03/2023 text/html PT Initial Eval*Reported bypatient.Symptom intensity:average 3/10 Symptom duration:occasional ly Symptom change:symptoms are getting better Symptom quality:dull; less intense. most pain with wt bearing Aggravating Factors:worse in the morning; standing; walking; upstairs; downstairs Alleviating Factors:sitting; medications (aleve 2x/day and tylenol prn); heat Sleep Status:no difficulty sleeping due to pain; rolling side to side inc pain Prior History:not currently taking a blood thinner; no allergy to latex; no falls in the past year;similar problems in the past;prior PT for other problems in the past year Prior Studies:x ray (L3-4 disc space narrowing and calcifications.) Prior Treatments:chiropra ctic care (no help); acupressure no help Work:retired Activities/Hobbies/ Exercise:none; egoscue exercises. Likes crafts Associated Symptoms:no nausea; no vomiting; no fever; no chills; no excessive fatigue; no confusion; no forgetfulness; no dizziness; no lightheadedness; no change in weight; no numbness; no tingling; no changes in urinary habits; no changes in bowel habits; no loss of pleasure or interest in activities; no feeling down or depressed Patient Specific Functional Score:{{10 20 30* 4 0 50 60 70 80 90 10 0}} Percent limitation in standing still{{10 20 30* 40 50 60 70 80 90 100 }} Percent limitation in walking{{10 20 30* 40 50 60 70 80 90 1 00}} Percent limitation in stairsLBP/L piriformis syndrome and into calf/moran area. Standing still is the worst, walk and stairs challenging, Wt bearing L LE increased pain. X rays done in past. Hx L GT bursitis. No HEP given yet by chiro/acupressure clinicians. Jyothi Cloud, PT [address] [place], [address], [facility] [place] 04/03/2023 15:06:53 01/26/2024 text/html Pt is a 73 f referred by PCP (Soto STINSON at [facility]) for vertigo. This episode onset a couple of months ago. Worst with tipping head back e.g. in bath. Has had this intermittently for about 11 years - tends to get it in the [place] and in the spring. 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 Anxious about canalith repositioning maneuvers and tends not to self-treat/tends to delay arranging treatment in office. Denies new tingling/numbness/w eakness/change in speech/swallowing. Denies change in hearing or vision. PMHx: pacemaker implantation 6 weeks ago d/t heart block+Covid-19 w/15-day hospitalization. On portable oxygen generator, 2L with activity and none at rest or when sleeping. SHANTAL LIN, PT [address] [place], [address], [facility] [place] 01/26/2024 14:36:17 01/28/2024 text/html Rose Bud great the first day, and generally speaking, better, but the second day, noticed a veil of mild disequilibrium. hasn't had any trouble with bending over and then standing back up. When doing home R Gin maneuver, had no vertigo initially, but when turning head to L, felt vertigo. Did not wait in third position rolled onto L shoulder. intake 01/26/24:Pt is a 73 f referred by PCP (Soto STINSON at [facility]) for vertigo. This episode onset a couple of months ago. Worst with tipping head back e.g. in bath. Has had this intermittently for about 11 years - tends to get it in the [place] and in the spring. 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 Anxious about canalith repositioning maneuvers and tends not to self-treat/tends to delay arranging treatment in office. Denies new tingling/numbness/w eakness/change in speech/swallowing. Denies change in hearing or vision. PMHx: pacemaker implantation 6 weeks ago d/t heart block+Covid-19 w/15-day hospitalization. On portable oxygen generator, 2L with activity and none at rest or when sleeping. SHANTAL LIN, PT [address] [place], [address], [facility] [place] 01/28/2024 16:25:36 OBGyn Episode No OBEpisode recorded.
--- OUTSIDE RECORDS SUMMARY | 2024-08-30 12:51 | XMS_ITS | Clinical Summary ---
Author Organization Unknown Care Team Providers Care Mill Operator Name Role Phone REJI MARION, HELEN Unavailable Unavailab debbie VILLALOBOS LPN, BERKLEY Unavailable Unavailable JUNIOR STAIN SPRAYER, ROBERT Unavailable Unavailable STEVEN RN, MARTINE Unavailable Unavailable FRANCISCO JAVIER PT, MARY ELLEN Unavailable Unavailable Payers Payer Name Policy Type Policy Number Effective Date Expira tion Date MEDICARE.NGS.PDGM [id number] Problems Condition Name Condition Details Condition Category [...] ULAR BLOCK, COMPLETE Active 08-31 00:00: 00 [facility] (CURRENT) USE OF INHALED STEROIDS Active 08-31 00:00: 00 PERSONAL HISTORY OF COVID-19 Active 12-31 00:00: 00 PRESENCE OF CARDIAC PACEMAKER Active 12-31 00:00: 00 [facility] (CURRENT) USE OF SYSTEMIC STEROIDS Active 08-31 [...] 12-07 00:00: 00 12-31 00:00 :00 No [id number] Per instruc tions Per instructio ns (route: oral) Med Classific ation: Endocrine hydrochloro thiazide 25 mg tablet 11-26 00:00: 00 02-14 23:59 :00 No [id number] LOWERS BLOOD PRESSURE 1 tablet DAILY 1 tablet DAILY (route: oral) Med Classific ation: Cardiovas cular Therapy Agents levothyroxi ne 75 mcg capsule 11-25 00:00: 00 02-24 23:59 :00 No [id number] HYPOTHYROID 1 capsule DAILY 1 capsule DAILY (route: oral) Med Classific ation: Endocrine acetaminoph en 500 mg tablet 12-31 00:00: 00 Yes [id number] PAIN 2 tablet 2 TIMES DAILY 2 tablet 2 TIMES DAILY (route: oral) Med Classific ation: Analgesic , Anti-infl ammatory or Antipyret ic albuterol sulfate HFA 90 mcg/actuati on aerosol inhaler 12-31 00:00: 00 Yes [id number] SOB/WHEEZIN G 2 puff EVERY 6 HOURS 2 puff EVERY 6 HOURS (route: inhalation ) Med Classific ation: Respirato ry Therapy Agents atorvastati n 40 mg tablet 12-31 00:00: 00 Yes [id number] LOWERS CHOLESTEROL 1 tablet BEDTIME 1 tablet BEDTIME (route: oral) Med Classific ation: Cardiovas cular Therapy Agents cyanocobala min (vit B-12) 1,000 mcg tablet 12-31 00:00: 00 Yes [id number] SUPPLEMENT 1 tablet DAILY 1 tablet DAILY (route: oral) Med Classific ation: Electroly te Balance-N utritiona l Products ibuprofen 600 mg tablet 12-31 00:00: 00 Yes [id number] PAIN 1 tablet 3 TIMES DAILY 1 tablet 3 TIMES DAILY (route: oral) Med Classific ation: Analgesic , Anti-infl ammatory or Antipyret ic meclizine 25 mg tablet 12-31 00:00: 00 02-24 23:59 :00 No [id number] DIZZINESS 1 tablet 3 TIMES DAILY 1 tablet 3 TIMES DAILY (route: oral) Med Classific ation: Gastroint estinal Therapy Agents metoprolol succinate ER 25 mg tablet,exte nded release 24 hr 12-31 00:00: 00 02-28 23:59 :00 No [id number] LOWERS BLOOD PRESSURE 1 tablet DAILY 1 tablet DAILY (route: oral) Med Classific ation: Cardiovas cular Therapy Agents naproxen sodium 220 mg capsule 12-31 00:00: 00 04-27 23:59 :00 No [id number] PAIN MANAGEMENT 1 capsule DAILY 1 capsule DAILY (route: oral) Med Classific ation: Analgesic , Anti-infl ammatory or Antipyret ic prednisone 10 mg tablet 12-31 00:00: 00 04-27 23:59 :00 No [id number] RESPIRATORY SX Per instruc tions DAILY Per instructio ns DAILY (route: oral) Med Classific ation: Endocrine furosemide 20 mg tablet 02-14 00:00: 00 02-18 23:59 :00 No [id number] FLUID RETENTION 1 tablet DAILY 1 tablet DAILY (route: oral) Med Classific ation: Cardiovas cular Therapy Agents Lasix 20 mg tablet 02-15 00:00: 00 02-18 23:59 :00 No [id number] SOB 3 tablet DAILY 3 tablet DAILY (route: oral) Alternate Route: BY MOUTH. Med Classific ation: Cardiovas cular Therapy Agents Lasix 20 mg tablet 02-18 00:00: 00 04-19 23:59 :00 No [id number] SOB 2 tablet DAILY 2 tablet DAILY (route: oral) Alternate Route: BY MOUTH. Med Classific ation: Cardiovas cular Therapy Agents levothyroxi ne 88 mcg tablet 03-01 00:00: 00 Yes [id number] HYPOTHYROID 1 tablet DAILY 1 tablet DAILY (route: oral) Med Classific ation: Endocrine meclizine 25 mg tablet 03-01 00:00: 00 Yes [id number] DIZZINESS 1 tablet 3 TIMES DAILY 1 tablet 3 TIMES DAILY (route: oral) Med Classific ation: Gastroint estinal Therapy Agents metoprolol succinate ER 25 mg tablet,exte nded release 24 hr 02-28 00:00: 00 03-22 23:59 :00 No [id number] LOWERS BLOOD PRESSURE 1 tablet 2 TIMES DAILY 1 tablet 2 TIMES DAILY (route: oral) Med Classific ation: Cardiovas cular Therapy Agents metoprolol succinate ER 50 mg tablet,exte nded release 24 hr 03-22 00:00: 00 04-19 23:59 :00 No [id number] HR 1 tablet 2 TIMES DAILY 1 tablet 2 TIMES DAILY (route: oral) Alternate Route: BY MOUTH. Med Classific ation: Cardiovas cular Therapy Agents omeprazole 40 mg capsule,del ayed release 03-22 00:00: 00 Yes [id number] HEARTBURN 1 capsule DAILY 1 capsule DAILY (route: oral) Alternate Route: BY MOUTH. Med Classific ation: Gastroint estinal Therapy Agents cyclobenzap rine 10 mg tablet 04-12 00:00: 00 05-19 23:59 :00 No [id number] PAIN 1 tablet DAILY 1 tablet DAILY (route: oral) Alternate Route: BY MOUTH. Med Classific ation: Locomotor System meloxicam 15 mg tablet 04-12 00:00: 00 06-01 23:59 :00 No [id number] PAIN 1 tablet DAILY 1 tablet DAILY (route: oral) Alternate Route: BY MOUTH. Med Classific ation: Analgesic , Anti-infl ammatory or Antipyret ic gabapentin 300 mg capsule 04-19 00:00: 00 05-19 23:59 :00 No [id number] PAIN MANAGEMENT 1 capsule BEDTIME 1 capsule BEDTIME (route: oral) Med Classific ation: Central Nervous System Agents furosemide 20 mg tablet 8 00:00: 00 Yes [id number] FLUID RETENTION 3 tablet DAILY 3 tablet DAILY (route: oral) Med Classific ation: Cardiovas cular Therapy Agents metoprolol succinate ER 25 mg tablet,exte nded release 24 hr 8 00:00: 00 06-01 23:59 :00 No [id number] AFIB 1 tablet EVERY PM 1 tablet EVERY PM (route: oral) Med Classific ation: Cardiovas cular Therapy Agents metoprolol succinate ER 50 mg tablet,exte nded release 24 hr 04-19 00:00: 00 06-01 23:59 :00 No [id number] AFIB 1 tablet DAILY 1 tablet DAILY (route: oral) Med Classific ation: Cardiovas cular Therapy Agents loratadine 10 mg capsule 04-30 00:00: 00 Yes [id number] ALLERGIES 1 capsule DAILY 1 capsule DAILY (route: oral) Med Classific ation: Respirato ry Therapy Agents magnesium 200 mg tablet 04-30 00:00: 00 Yes [id number] SUPPLEMENT 1 tablet DAILY 1 tablet DAILY (route: oral) Med Classific ation: Electroly te Balance-N utritiona l Products prednisone 10 mg tablet 04-30 00:00: 00 06-01 23:59 :00 No [id number] RESPIRATORY 1 tablet DAILY 1 tablet DAILY (route: oral) Med Classific ation: Endocrine tramadol 50 mg tablet 05-19 00:00: 00 Yes [id number] PAIN 1 tablet 2 TIMES DAILY 1 tablet 2 TIMES DAILY (route: oral) Alternate Route: BY MOUTH. Med Classific ation: Analgesic , Anti-infl ammatory or Antipyret ic metoprolol succinate ER 50 mg tablet,exte nded release 24 hr 2023-08 00:00: 00 Yes [id number] A-FIB 1 tablet 2 TIMES DAILY 1 tablet 2 TIMES DAILY (route: oral) Med Classific ation: Cardiovas cular Therapy Agents prednisone 10 mg tablet 2023-08 0-15 00:00: 00 06-22 23:59 :00 No [id number] PAIN 3 tablet DAILY 3 tablet DAILY (route: oral) Alternate Route: BY MOUTH. Med Classific ation: Endocrine prednisone 10 mg tablet 2023-08 00:00: 00 Yes [id number] INFLAMMATIO N 1 tablet DAILY 1 tablet DAILY (route: oral) Alternate Route: BY MOUTH. Med Classific ation: Endocrine prednisone 20 mg tablet 2023-08 00:00: 00 06-29 23:59 :00 No [id number] INFLAMMATIO N 1 tablet DAILY 1 tablet [...] TO EVALUATE, OBSERVE / ASSESS, AND MONITOR, STAIN SPRAYER TO OBSERVE AND MONITOR, PROVIDE SKILLED THERAPEUTIC INTERVENTION, ACTIVITY, EDUCATION, AND TRAINING TO ADDRESS; [code = AGENCY MAY PERFORM A RESUMPTION OF CARE VISIT FOLLOWING ANY HOSPITAL ADMISSION. PT TO EVALUATE, OBSERVE / ASSESS, AND MONITOR, STAIN SPRAYER TO OBSERVE AND MONITOR, PROVIDE SKILLED THERAPEUTIC INTERVENTION, ACTIVITY, EDUCATION, AND TRAINING TO ADDRESS;] Future Scheduled Test PT/STAIN SPRAYER TO PROVIDE STAIR TRAINING [code = PT/STAIN SPRAYER TO PROVIDE STAIR TRAINING] Future Scheduled Test PT/STAIN SPRAYER TO PROVIDE GAIT TRAINING FOR IMPROVED MOBILITY AND /OR TO NORMALIZE GAIT PATTERN [code = PT/STAIN SPRAYER TO PROVIDE GAIT TRAINING FOR IMPROVED MOBILITY AND /OR TO NORMALIZE GAIT PATTERN] Future Scheduled Test THERAPEUTI C EXERCISES AND ESTABLISHING A HOME EXERCISE PROGRAM (PT/STAIN SPRAYER) [code = THERAPEUTIC EXERCISES AND ESTABLISHING A HOME EXERCISE PROGRAM (PT/STAIN SPRAYER)] Future Scheduled Test NEUROMUSCU LAR RE-EDUCATION / BALANCE / POSTURAL CONTROL (PT) [code = NEUROMUSCULAR RE-EDUCATION / BALANCE / POSTURAL CONTROL (PT)] Future Scheduled Test PT/STAIN SPRAYER TO IDENTIFY FALL RISK FACTORS; EDUCATE THE PATIENT/CAREGIVER ON WAYS TO REDUCE FALL RISK FACTORS AND ESTABLISH HOME EXERCISE PROGRAM TO MINIMIZE FALL RISK. MAY TEACH THE PATIENT FLOOR RECOVERY WHEN CLINICALLY APPROPRIATE [code = PT/STAIN SPRAYER TO IDENTIFY FALL RISK FACTORS; EDUCATE THE PATIENT/CAREGIVER ON WAYS TO REDUCE FALL RISK FACTORS AND ESTABLISH HOME EXERCISE PROGRAM TO MINIMIZE FALL RISK. MAY TEACH THE PATIENT FLOOR RECOVERY WHEN CLINICALLY APPROPRIATE] Future Scheduled Test PT TO ASSE SS / STAIN SPRAYER TO MONITOR FOR HEART FAILURE EXACERBATION AND RECORD PATIENT REPORTED WEIGHT, AND NOTIFY THE PHYSICIAN AND/OR THE RN CLINICAL MACHINIST MECHANIC FOR PHYSICIAN NOTIFICATION OF HF EXACERBATION (2LB WEIGHT GAIN IN 1 DAY, 5LBS IN A WEEK OR 5 LBS OVER BASELINE; INCREASED SOB, EDEMA, NEEDING MORE PILLOWS AT NIGHT, CRACKLES IN BASIS OF THE LUNGS OR PMI SHIFT) [code = PT TO ASSESS / STAIN SPRAYER TO MONITOR FOR HEART FAILURE EXACERBATION AND RECORD PATIENT REPORTED WEIGHT, AND NOTIFY THE PHYSICIAN AND/OR THE RN CLINICAL MACHINIST MECHANIC FOR PHYSICIAN NOTIFICATION OF HF EXACERBATION (2LB WEIGHT GAIN IN 1 DAY, 5LBS IN A WEEK OR 5 LBS OVER BASELINE; INCREASED SOB, EDEMA, NEEDING MORE PILLOWS AT NIGHT, CRACKLES IN BASIS OF THE LUNGS OR PMI SHIFT)] Future Scheduled Test PT TO ASSE SS / STAIN SPRAYER TO MONITOR CARDIO/RESPIRATORY SYSTEM; AND NOTIFY THE PHYSICIAN AND/OR THE RN CLINICAL MACHINIST MECHANIC FOR PHYSICIAN NOTIFICATION FOR EARLY SIGNS AND SYMPTOMS OF EXACERBATION OR DETERIORATION. [code = PT TO ASSESS / STAIN SPRAYER TO MONITOR CARDIO/RESPIRATORY SYSTEM; AND NOTIFY THE PHYSICIAN AND/OR THE RN CLINICAL MACHINIST MECHANIC FOR PHYSICIAN NOTIFICATION FOR EARLY SIGNS AND SYMPTOMS OF EXACERBATION OR DETERIORATION.] Future Scheduled Test PT / STAIN SPRAYER T O MONITOR AND EDUCATE ON OXYGEN SATURATION DURING ADLS/IADLS, NOTIFY PHYSICIAN AND/OR THE RN CLINICAL MACHINIST MECHANIC FOR PHYSICIAN NOTIFICATION AND IF O2 SATS BELOW PHYSICIAN ORDERED PARAMETERS AFTER 10 MIN OF REST [code = PT / STAIN SPRAYER TO MONITOR AND EDUCATE ON OXYGEN SATURATION DURING ADLS/IADLS, NOTIFY PHYSICIAN AND/OR THE RN CLINICAL MACHINIST MECHANIC FOR PHYSICIAN NOTIFICATION AND IF O2 SATS BELOW PHYSICIAN ORDERED PARAMETERS AFTER 10 MIN OF REST] Future Scheduled Test PT / STAIN SPRAYER M AY EDUCATE ON PAIN MANAGEMENT CLINICALLY INDICATED, INCLUDING NON-PHARMACOLOGICAL PAIN REDUCTION TECHNIQUES [code = PT / STAIN SPRAYER MAY EDUCATE ON PAIN MANAGEMENT CLINICALLY INDICATED, INCLUDING NON-PHARMACOLOGICAL PAIN REDUCTION TECHNIQUES ] Future Scheduled Test PT / STAIN SPRAYER T O INSTRUCT PATIENT/CAREGIVER ON RISK FOR HOSPITALIZATION/EMERGENCY ROOM VISITS, TEACH SIGNS AND SYMPTOMS THAT PUT PATIENT AT RISK, WHEN TO NOTIFY NURSE/PHYSICIAN OF COMPLICATIONS/DECLINE, AND WHEN TO CALL 911. [code = PT / STAIN SPRAYER TO INSTRUCT PATIENT/CAREGIVER ON RISK FOR HOSPITALIZATION/EMERGENCY [...] End Date/Time Encounter Type Admission Type Attending [facility] Care Department Encounter ID Discharge Date Discharge Status Discharge Condition Discharge Reason Percent Goals Met 2024-01-01 00:00:00 2024-07-29 00:00:00 Outpatient [facility] MARY ELLEN NAYAK [facility] [id number] 2024-07-29 00:00:00 DISCHARGE TO HOME OR SELF CARE INDEPENDEN T IN THE COMM[facility]ITY HH OR [facility]- GOALS MET 75.00
--- OUTSIDE RECORDS SUMMARY | 2024-08-30 12:51 | XMS_ITS | Clinical Summary ---
Author Organization Unknown Care Team Providers Care Sprayer Machine Name Role Phone REJI MARION, HELEN Unavailable Unavailab debbie VILLALOBOS LPN, BERKLEY Unavailable Unavailable JUNIOR BUCKLE STRAP DRUM OPERATOR, ROBERT Unavailable Unavailable STEVEN RN, MARTINE Unavailable Unavailable FRANCISCO JAVIER PT, MARY ELLEN Unavailable Unavailable Payers Payer Name Policy Type Policy Number Effective Date Expira tion Date MEDICARE.NGS.PDGM [id number] Problems Condition Name Condition Details Condition Category [...] 12-07 00:00: 00 12-31 00:00 :00 No [id number] Per instruc tions Per instructio ns (route: oral) Med Classific ation: Endocrine hydrochloro thiazide 25 mg tablet 11-26 00:00: 00 02-14 23:59 :00 No [id number] LOWERS BLOOD PRESSURE 1 tablet DAILY 1 tablet DAILY (route: oral) Med Classific ation: Cardiovas cular Therapy Agents levothyroxi ne 75 mcg capsule 11-25 00:00: 00 02-24 23:59 :00 No [id number] HYPOTHYROID 1 capsule DAILY 1 capsule DAILY (route: oral) Med Classific ation: Endocrine acetaminoph en 500 mg tablet 12-31 00:00: 00 Yes [id number] PAIN 2 tablet 2 TIMES DAILY 2 tablet 2 TIMES DAILY (route: oral) Med Classific ation: Analgesic , Anti-infl ammatory or Antipyret ic albuterol sulfate HFA 90 mcg/actuati on aerosol inhaler 12-31 00:00: 00 Yes [id number] SOB/WHEEZIN G 2 puff EVERY 6 HOURS 2 puff EVERY 6 HOURS (route: inhalation ) Med Classific ation: Respirato ry Therapy Agents atorvastati n 40 mg tablet 12-31 00:00: 00 Yes [id number] LOWERS CHOLESTEROL 1 tablet BEDTIME 1 tablet BEDTIME (route: oral) Med Classific ation: Cardiovas cular Therapy Agents cyanocobala min (vit B-12) 1,000 mcg tablet 12-31 00:00: 00 Yes [id number] SUPPLEMENT 1 tablet DAILY 1 tablet DAILY (route: oral) Med Classific ation: Electroly te Balance-N utritiona l Products ibuprofen 600 mg tablet 12-31 00:00: 00 Yes [id number] PAIN 1 tablet 3 TIMES DAILY 1 tablet 3 TIMES DAILY (route: oral) Med Classific ation: Analgesic , Anti-infl ammatory or Antipyret ic meclizine 25 mg tablet 12-31 00:00: 00 02-24 23:59 :00 No [id number] DIZZINESS 1 tablet 3 TIMES DAILY 1 tablet 3 TIMES DAILY (route: oral) Med Classific ation: Gastroint estinal Therapy Agents metoprolol succinate ER 25 mg tablet,exte nded release 24 hr 12-31 00:00: 00 02-28 23:59 :00 No [id number] LOWERS BLOOD PRESSURE 1 tablet DAILY 1 tablet DAILY (route: oral) Med Classific ation: Cardiovas cular Therapy Agents naproxen sodium 220 mg capsule 12-31 00:00: 00 04-27 23:59 :00 No [id number] PAIN MANAGEMENT 1 capsule DAILY 1 capsule DAILY (route: oral) Med Classific ation: Analgesic , Anti-infl ammatory or Antipyret ic prednisone 10 mg tablet 12-31 00:00: 00 04-27 23:59 :00 No [id number] RESPIRATORY SX Per instruc tions DAILY Per instructio ns DAILY (route: oral) Med Classific ation: Endocrine furosemide 20 mg tablet 02-14 00:00: 00 02-18 23:59 :00 No [id number] FLUID RETENTION 1 tablet DAILY 1 tablet DAILY (route: oral) Med Classific ation: Cardiovas cular Therapy Agents Lasix 20 mg tablet 02-15 00:00: 00 02-18 23:59 :00 No [id number] SOB 3 tablet DAILY 3 tablet DAILY (route: oral) Alternate Route: BY MOUTH. Med Classific ation: Cardiovas cular Therapy Agents Lasix 20 mg tablet 02-18 00:00: 00 04-19 23:59 :00 No [id number] SOB 2 tablet DAILY 2 tablet DAILY (route: oral) Alternate Route: BY MOUTH. Med Classific ation: Cardiovas cular Therapy Agents levothyroxi ne 88 mcg tablet 03-01 00:00: 00 Yes [id number] HYPOTHYROID 1 tablet DAILY 1 tablet DAILY (route: oral) Med Classific ation: Endocrine meclizine 25 mg tablet 03-01 00:00: 00 Yes [id number] DIZZINESS 1 tablet 3 TIMES DAILY 1 tablet 3 TIMES DAILY (route: oral) Med Classific ation: Gastroint estinal Therapy Agents metoprolol succinate ER 25 mg tablet,exte nded release 24 hr 02-28 00:00: 00 03-22 23:59 :00 No [id number] LOWERS BLOOD PRESSURE 1 tablet 2 TIMES DAILY 1 tablet 2 TIMES DAILY (route: oral) Med Classific ation: Cardiovas cular Therapy Agents metoprolol succinate ER 50 mg tablet,exte nded release 24 hr 03-22 00:00: 00 04-19 23:59 :00 No [id number] HR 1 tablet 2 TIMES DAILY 1 tablet 2 TIMES DAILY (route: oral) Alternate Route: BY MOUTH. Med Classific ation: Cardiovas cular Therapy Agents omeprazole 40 mg capsule,del ayed release 03-22 00:00: 00 Yes [id number] HEARTBURN 1 capsule DAILY 1 capsule DAILY (route: oral) Alternate Route: BY MOUTH. Med Classific ation: Gastroint estinal Therapy Agents cyclobenzap rine 10 mg tablet 04-12 00:00: 00 05-19 23:59 :00 No [id number] PAIN 1 tablet DAILY 1 tablet DAILY (route: oral) Alternate Route: BY MOUTH. Med Classific ation: Locomotor System meloxicam 15 mg tablet 04-12 00:00: 00 06-01 23:59 :00 No [id number] PAIN 1 tablet DAILY 1 tablet DAILY (route: oral) Alternate Route: BY MOUTH. Med Classific ation: Analgesic , Anti-infl ammatory or Antipyret ic gabapentin 300 mg capsule 04-19 00:00: 00 05-19 23:59 :00 No [id number] PAIN MANAGEMENT 1 capsule BEDTIME 1 capsule BEDTIME (route: oral) Med Classific ation: Central Nervous System Agents furosemide 20 mg tablet 8 00:00: 00 Yes [id number] FLUID RETENTION 3 tablet DAILY 3 tablet DAILY (route: oral) Med Classific ation: Cardiovas cular Therapy Agents metoprolol succinate ER 25 mg tablet,exte nded release 24 hr 8 00:00: 00 06-01 23:59 :00 No [id number] AFIB 1 tablet EVERY PM 1 tablet EVERY PM (route: oral) Med Classific ation: Cardiovas cular Therapy Agents metoprolol succinate ER 50 mg tablet,exte nded release 24 hr 04-19 00:00: 00 06-01 23:59 :00 No [id number] AFIB 1 tablet DAILY 1 tablet DAILY (route: oral) Med Classific ation: Cardiovas cular Therapy Agents loratadine 10 mg capsule 04-30 00:00: 00 Yes [id number] ALLERGIES 1 capsule DAILY 1 capsule DAILY (route: oral) Med Classific ation: Respirato ry Therapy Agents magnesium 200 mg tablet 04-30 00:00: 00 Yes [id number] SUPPLEMENT 1 tablet DAILY 1 tablet DAILY (route: oral) Med Classific ation: Electroly te Balance-N utritiona l Products prednisone 10 mg tablet 04-30 00:00: 00 06-01 23:59 :00 No [id number] RESPIRATORY 1 tablet DAILY 1 tablet DAILY (route: oral) Med Classific ation: Endocrine tramadol 50 mg tablet 05-19 00:00: 00 Yes [id number] PAIN 1 tablet 2 TIMES DAILY 1 tablet 2 TIMES DAILY (route: oral) Alternate Route: BY MOUTH. Med Classific ation: Analgesic , Anti-infl ammatory or Antipyret ic metoprolol succinate ER 50 mg tablet,exte nded release 24 hr 2023-08 00:00: 00 Yes [id number] A-FIB 1 tablet 2 TIMES DAILY 1 tablet 2 TIMES DAILY (route: oral) Med Classific ation: Cardiovas cular Therapy Agents prednisone 10 mg tablet 2023-08 0-15 00:00: 00 06-22 23:59 :00 No [id number] PAIN 3 tablet DAILY 3 tablet DAILY (route: oral) Alternate Route: BY MOUTH. Med Classific ation: Endocrine prednisone 10 mg tablet 2023-08 00:00: 00 Yes [id number] INFLAMMATIO N 1 tablet DAILY 1 tablet DAILY (route: oral) Alternate Route: BY MOUTH. Med Classific ation: Endocrine prednisone 20 mg tablet 2023-08 00:00: 00 06-29 23:59 :00 No [id number] INFLAMMATIO N 1 tablet DAILY 1 tablet [...] TO EVALUATE, OBSERVE / ASSESS, AND MONITOR, BUCKLE STRAP DRUM OPERATOR TO OBSERVE AND MONITOR, PROVIDE SKILLED THERAPEUTIC INTERVENTION, ACTIVITY, EDUCATION, AND TRAINING TO ADDRESS; [code = AGENCY MAY PERFORM A RESUMPTION OF CARE VISIT FOLLOWING ANY HOSPITAL ADMISSION. PT TO EVALUATE, OBSERVE / ASSESS, AND MONITOR, BUCKLE STRAP DRUM OPERATOR TO OBSERVE AND MONITOR, PROVIDE SKILLED THERAPEUTIC INTERVENTION, ACTIVITY, EDUCATION, AND TRAINING TO ADDRESS;] Future Scheduled Test PT/BUCKLE STRAP DRUM OPERATOR TO PROVIDE STAIR TRAINING [code = PT/BUCKLE STRAP DRUM OPERATOR TO PROVIDE STAIR TRAINING] Future Scheduled Test PT/BUCKLE STRAP DRUM OPERATOR TO PROVIDE GAIT TRAINING FOR IMPROVED MOBILITY AND /OR TO NORMALIZE GAIT PATTERN [code = PT/BUCKLE STRAP DRUM OPERATOR TO PROVIDE GAIT TRAINING FOR IMPROVED MOBILITY AND /OR TO NORMALIZE GAIT PATTERN] Future Scheduled Test THERAPEUTI C EXERCISES AND ESTABLISHING A HOME EXERCISE PROGRAM (PT/BUCKLE STRAP DRUM OPERATOR) [code = THERAPEUTIC EXERCISES AND ESTABLISHING A HOME EXERCISE PROGRAM (PT/BUCKLE STRAP DRUM OPERATOR)] Future Scheduled Test NEUROMUSCU LAR RE-EDUCATION / BALANCE / POSTURAL CONTROL (PT) [code = NEUROMUSCULAR RE-EDUCATION / BALANCE / POSTURAL CONTROL (PT)] Future Scheduled Test PT/BUCKLE STRAP DRUM OPERATOR TO IDENTIFY FALL RISK FACTORS; EDUCATE THE PATIENT/CAREGIVER ON WAYS TO REDUCE FALL RISK FACTORS AND ESTABLISH HOME EXERCISE PROGRAM TO MINIMIZE FALL RISK. MAY TEACH THE PATIENT FLOOR RECOVERY WHEN CLINICALLY APPROPRIATE [code = PT/BUCKLE STRAP DRUM OPERATOR TO IDENTIFY FALL RISK FACTORS; EDUCATE THE PATIENT/CAREGIVER ON WAYS TO REDUCE FALL RISK FACTORS AND ESTABLISH HOME EXERCISE PROGRAM TO MINIMIZE FALL RISK. MAY TEACH THE PATIENT FLOOR RECOVERY WHEN CLINICALLY APPROPRIATE] Future Scheduled Test PT TO ASSE SS / BUCKLE STRAP DRUM OPERATOR TO MONITOR FOR HEART FAILURE EXACERBATION AND RECORD PATIENT REPORTED WEIGHT, AND NOTIFY THE PHYSICIAN AND/OR THE RN CLINICAL SENIOR INFORMATION SYSTEMS ARCHITECT FOR PHYSICIAN NOTIFICATION OF HF EXACERBATION (2LB WEIGHT GAIN IN 1 DAY, 5LBS IN A WEEK OR 5 LBS OVER BASELINE; INCREASED SOB, EDEMA, NEEDING MORE PILLOWS AT NIGHT, CRACKLES IN BASIS OF THE LUNGS OR PMI SHIFT) [code = PT TO ASSESS / BUCKLE STRAP DRUM OPERATOR TO MONITOR FOR HEART FAILURE EXACERBATION AND RECORD PATIENT REPORTED WEIGHT, AND NOTIFY THE PHYSICIAN AND/OR THE RN CLINICAL SENIOR INFORMATION SYSTEMS ARCHITECT FOR PHYSICIAN NOTIFICATION OF HF EXACERBATION (2LB WEIGHT GAIN IN 1 DAY, 5LBS IN A WEEK OR 5 LBS OVER BASELINE; INCREASED SOB, EDEMA, NEEDING MORE PILLOWS AT NIGHT, CRACKLES IN BASIS OF THE LUNGS OR PMI SHIFT)] Future Scheduled Test PT TO ASSE SS / BUCKLE STRAP DRUM OPERATOR TO MONITOR CARDIO/RESPIRATORY SYSTEM; AND NOTIFY THE PHYSICIAN AND/OR THE RN CLINICAL SENIOR INFORMATION SYSTEMS ARCHITECT FOR PHYSICIAN NOTIFICATION FOR EARLY SIGNS AND SYMPTOMS OF EXACERBATION OR DETERIORATION. [code = PT TO ASSESS / BUCKLE STRAP DRUM OPERATOR TO MONITOR CARDIO/RESPIRATORY SYSTEM; AND NOTIFY THE PHYSICIAN AND/OR THE RN CLINICAL SENIOR INFORMATION SYSTEMS ARCHITECT FOR PHYSICIAN NOTIFICATION FOR EARLY SIGNS AND SYMPTOMS OF EXACERBATION OR DETERIORATION.] Future Scheduled Test PT / BUCKLE STRAP DRUM OPERATOR T O MONITOR AND EDUCATE ON OXYGEN SATURATION DURING ADLS/IADLS, NOTIFY PHYSICIAN AND/OR THE RN CLINICAL SENIOR INFORMATION SYSTEMS ARCHITECT FOR PHYSICIAN NOTIFICATION AND IF O2 SATS BELOW PHYSICIAN ORDERED PARAMETERS AFTER 10 MIN OF REST [code = PT / BUCKLE STRAP DRUM OPERATOR TO MONITOR AND EDUCATE ON OXYGEN SATURATION DURING ADLS/IADLS, NOTIFY PHYSICIAN AND/OR THE RN CLINICAL SENIOR INFORMATION SYSTEMS ARCHITECT FOR PHYSICIAN NOTIFICATION AND IF O2 SATS BELOW PHYSICIAN ORDERED PARAMETERS AFTER 10 MIN OF REST] Future Scheduled Test PT / BUCKLE STRAP DRUM OPERATOR M AY EDUCATE ON PAIN MANAGEMENT CLINICALLY INDICATED, INCLUDING NON-PHARMACOLOGICAL PAIN REDUCTION TECHNIQUES [code = PT / BUCKLE STRAP DRUM OPERATOR MAY EDUCATE ON PAIN MANAGEMENT CLINICALLY INDICATED, INCLUDING NON-PHARMACOLOGICAL PAIN REDUCTION TECHNIQUES ] Future Scheduled Test PT / BUCKLE STRAP DRUM OPERATOR T O INSTRUCT PATIENT/CAREGIVER ON RISK FOR HOSPITALIZATION/EMERGENCY ROOM VISITS, TEACH SIGNS AND SYMPTOMS THAT PUT PATIENT AT RISK, WHEN TO NOTIFY NURSE/PHYSICIAN OF COMPLICATIONS/DECLINE, AND WHEN TO CALL 911. [code = PT / BUCKLE STRAP DRUM OPERATOR TO INSTRUCT PATIENT/CAREGIVER ON RISK FOR [...] Goals Met 2024-01-01 00:00:00 2024-07-29 00:00:00 Outpatient [facility] MARY ELLEN [facility] [id number] 2024-07-29 00:00:00 DISCHARGE TO HOME OR SELF CARE INDEPENDEN T IN THE COMM[facility] HH OR [facility]- GOALS MET 75.00
--- OUTSIDE RECORDS SUMMARY | 2024-08-30 12:51 | XMS_ITS | Continuity of Care Document ---
Author Organization [facility] Address [address] [place] [address] [address] [place], [place] Phone [phone] Care Team Providers Care Psychiatric Lpn Name Role Phone Dayan Barragan MD Care Team Information Rec eiver Unavailable Social History Type Date Description Comments Sex Unknown
--- NOTE | 2024-08-30 12:56 | MHC.OFFVIS ---
Vital Signs 08/30/24 12:57 Height 5 ft 3 in Weight 181 lb 14.102 oz BMI 32.2 BP 98/52 L Blood Pressure Location Rt brachial Position Sitting Pulse 92 Pulse Source Pulse Oximeter Intake Visit Reasons: Other specified abnormal findings of blood chemi Intake Note: New patient internally referred by Dr. Burroughs for increased PTH levels. Tour Conductor Required: No Accompanied by: Self / Same As Patient Allergies codeine Allergy (Severe, Verified 08/30/24 12:59) felt like going to propranolol Allergy (Intermediate, Verified 08/30/24 12:59) dizziness Seasonal Allergies Allergy (Intermediate, Verified 08/30/24 12:59) Sneezing, vertigo Medication List - Last Reconciled 08/30/24 by Carson Paul MD acetaminophen (Tylenol) 650 mg PO QID PRN amlodipine 2.5 mg PO DAILY atorvastatin 40 mg PO DAILY calcium carbonate-vitamin D3 600 mg-20 mcg (800 unit) 1 tab PO DAILY furosemide 60 mg (1.5 x 40 mg) PO QAM 30 days levothyroxine 88 mcg PO DAILY meclizine (Dramamine (meclizine)) 25 mg PO BID PRN metoprolol succinate ER (Toprol XL) 50 mg PO BID naproxen sodium 220 mg PO BID PRN omeprazole 40 mg PO DAILY prednisone 20 mg PO DAILY tizanidine 4 mg PO BID PRN tramadol 50 mg PO BID PRN HPI Comments Details: This is a 73-year-old white female previously seen by endocrinology for management multinodular goiter. Patient returns for visit today for new problem of increased PTH. Patient is currently on supplement 1000 IU vitamin D3 and 600 mg calcium. There is no history of kidney stones. DEXA bone density shows the absence of osteoporosis but low bone mass. There is no history of renal insufficiency. Recent 25 hydroxy vitamin-D level was low normal. No hx of bone fx PFSH Medical History Lower thoracic back pain Bifascicular block Supplemental oxygen dependent CREST (calcinosis, Raynaud's phenomenon, esophageal dysfunction, sclerodactyly, telangiectasia) Dyspnea on exertion Pericardial effusion Complete heart block Hypothyroid Enlarged thyroid Hypertension Multinodular thyroid Telangiectasia Dysphagia Surgical History Status post cardiac pacemaker procedure S/P cardiac cath S/P tooth extraction Hx of colonoscopy H/O breast biopsy Family History Father Heart disease Sister Ovarian cancer Brother Heart attack Stroke Mother Thyroid disease Brother Asthma Social History Household Members: Spouse Housing: House Do you presently have visiting nurse or other home services: Yes ([facility] ,[facility]) Alcohol intake: never Patient Tobacco Use Status: Former Tobacco user Tobacco use type: Cigarette Years Smoked: 20 +/- e-Cigarette/Vaping Use: Never Used Second Hand Smoke Exposure: Yes Advance Directives Date on File: 02/13/24 service: No Current occupational status: retired 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 . 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 She does have a low 25 hydroxy vitamin-D level. The plan is to replete vitamin D3 by taking additional 2000 IU per day. l recheck PTH, calcium, albumin, 25 hydroxy vitamin-D, 24 hour urine for calcium and creatinine at [facility] ([facility]) in 12 weeks. She should follow up with Rheumatology regarding management of the crest syndrome and the calcinosis Orders: Orders Vitamin D 25-OH Total 3 Months - Other specified abnormal findings of blood chemistry Parathyroid Hormone Intact 3 Months - Other specified abnormal findings of blood chemistry Calcium 3 Months - Other specified abnormal findings of blood chemistry Albumin Level 3 Months - Other specified abnormal findings of blood chemistry Calcium, 24 Hr Ur 3 Months - Other specified abnormal findings of blood chemistry Creatinine, 24 Hr Group 3 Months - Other specified abnormal findings of blood chemistry Coding Level of Care Code Est Pt Level 3 (76780) Diagnoses Increased PTH level
[2024-08-30 12:57] VITALS: BP 98/52; PULSE 92; BMI 32.2
== END 2024-08-30 13:42 | disposition home or self-care (01) ==
PROVIDERS: PCP Internal Medicine; Visit Provider Internal Medicine Endocrinology, Diabetes & Metabolism
DX: R79.89 Other specified abnormal findings of blood chemistry (principal)
CPT/HCPCS: 99213

== ENCOUNTER → 2024-08-30 12:48 | Outpatient (BNVA) | payer MEDICARE, OTHER, SELFPAY | PROVIDERS: PCP Internal Medicine; Visit Provider Internal Medicine Endocrinology, Diabetes & Metabolism | DX: R79.89 Other specified abnormal findings of blood chemistry (principal) | CPT/HCPCS: 99212 ==

== ENCOUNTER → 2024-09-01 10:23 | Outpatient (BNV) | payer MEDICARE, OTHER, SELFPAY | PROVIDERS: PCP Internal Medicine; Visit Provider Specialist | DX: M48.061 Spinal stenosis, lumbar region without neurogenic claudication (principal) | CPT/HCPCS: 72148 ==

== ENCOUNTER 2024-09-01 10:44 | Outpatient (REF) | payer MEDICARE, OTHER, SELFPAY ==
--- NOTE | ~2024-09-01 | MR_ITS ---
CLINICAL HISTORY: M54.16 - Radiculopathy, lumbar region MR lumbar spine without gadolinium Comparison: None Findings: Normal alignment. No acute fracture or pathologic bone lesion. Cauda equina and conus medullaris within normal limits. Multiple level broad-based degenerative disc bulge and degenerative facet changes. Moderate degree central canal stenosis at L3-L4. Paraspinous musculature intact. IMPRESSION: 1. No acute findings. 2. Multiple level broad-based degenerative disc bulge and degenerative facet changes with central canal stenosis at L3-L4. This document has been electronically signed by: Anibal Swanson MD on 09/02/2024 07:38:50
--- OUTSIDE RECORDS SUMMARY | 2024-09-01 11:22 | XMS_ITS | Continuity of Care Document ---
Author Organization [facility] Address [address] [place] [address] [address] [place], [place] Phone [phone] Care Team Providers Care Drill Presser Name Role Phone Dayan Barragan MD Care Team Information Rec eiver Unavailable Social History Type Date Description Comments Sex Unknown
--- OUTSIDE RECORDS SUMMARY | 2024-09-01 11:22 | XMS_ITS | Data Portability ---
Author Organization [facility], [facility] Address [address] [place] [address] Care Team Providers Care Cytopathology Technologist Name Role Phone JYOTHI CLOUD Phys. Med. 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 R sided BPPV has resolved and [place]-Hallpike is negative. She has slight symptoms when testing the L. These are less intense and at this time, pt feels that they are not limiting her function. Left side was treated today with SPACE ENGINEER. Pt prefers to D/C despite positive findings on the L and will return if these symptoms should pose any restrictions in her function. D/C PT [email or web address] Not available 05/07/2022 07:57:01 04/03/2023 04/03/2023 IE 04/03/2309/09 Plan: 1 x/week up to 10 visits over 12 weeks Plan to use CPT codes: 67795 Therapeutic Exercise 44162 Neuromuscular ReEducation 44752 Manual 76194 Therapeutic Activity A: Dolly is a 72 [...] Treatments may include (as appropriate/as indicated): Therapeutic exercise(03614)/Ne uromuscular Reeducation (84619)/Manual Therapy (42622)/Therapeuti c Activities (68702)/Self-care management(55368)/ Attended Electrical Stimulation (28754)/PRN modalities/dry needling/Gait Training (65657)/canalith repositioning(9599 2) [email or web address] Not available 01/26/2024 14:35:58 01/28/2024 01/28/2024 Plan: [...] Treatments may include (as appropriate/as indicated): Therapeutic exercise(34683)/Ne uromuscular Reeducation (42430)/Manual Therapy (19077)/Therapeuti c Activities (61254)/Self-care management(89990)/ Attended Electrical Stimulation (09319)/PRN modalities/dry needling/Gait Training (26173)/canalith repositioning(9599 2) [email or web address] Not available 01/28/2024 16:25:25 Plan of Treatment [...] g Physic hernando: Mary Ann Oliver ms [facility] (Imaging) [address], [place], [address], 08/01/2022 10:24:55 Result Notes None recorded. Problems Name Problem SNOMED Code Status Onset Date Resolution Date Notes Provider Name and Address Organization Details Recorded Time Measuremen t finding outside reference range 172456472 Completed 07/20/2013 Not Available [facility] 3 02:03:25 Benign essential hypertensi on 9924411 Active Sonia tabares, [facility] 6 08:43:18 Multiple joint pain 52397812 Completed 07/20/2013 Not Available [facility] 3 02:02:27 Primary fibromyalg ia syndrome 55896357 Active Not Available [facility] 3 03:15:35 Posterior rhinorrhea 97939007 Completed 12/25/2016 Peace Ruano NP [address] [place] [address], [address] , [facility] 7 13:02:33 Dizziness 454731111 Completed 07/20/2013 Not Available [facility] 3 02:02:09 Raynaud's disease 207682948 Completed 12/25/2016 Peace Ruano NP [address] [place] [address], [address] , [facility] 7 13:02:22 Limited systemic sclerosis 483943361 Active Lesli Leigh MD [address] [place] [address], [address] , [facility] 6 08:40:52 Paronychia 12726857 Completed 12/25/2016 Peace Ruano NP [address] [place] [address], [address] , [facility] 7 13:02:26 Finger ulcer 060515004 Completed 12/25/2016 Peace Ruano NP [address] [place] [address], [address] , [facility] 7 13:02:28 Raynaud's phenomenon 201868188 Active Lesli Leigh MD [address] [place] [address], [address] , [facility] 6 08:40:52 Benign paroxysmal positional vertigo 015901592 Active 2017 Peace Ruano NP [address] [place] [address], [address] , [facility] 8 13:35:50 Problem Notes None recorded. Procedures Surgical History Date Name Laterality Status Provider Name and Address Organization Details Recorded Time 01/28/20 24 Neuromuscular re-education completed SHANTAL LIN, PT [address] [place], [address], [facility] 01/28/2024 16:24:21 01/28/20 24 Treatment and Advice completed SHANTAL LIN, PT [address] [place] [address], [address], [facility] 01/28/2024 16:11:11 01/26/20 24 Physical Activity Counselling completed SHANTAL LIN, PT [address] [place], [address], [facility] 01/26/2024 11:19:50 01/26/20 24 63467: PT Eval Low Complexity completed SHANTAL LIN, PT [address] [place] [address], [address], [facility] 01/26/2024 11:19:54 01/26/20 24 Treatment and Advice completed SHANTAL LIN, PT [address] [place], [address], [facility] 01/26/2024 11:41:10 04/03/20 23 Smoking Cessation Counselling completed Jyothi Cloud, PT [address] [place], [address], [facility] 04/03/2023 11:46:14 04/03/20 23 Physical Activity Counselling completed Jyothi Cloud, PT [address] [place], [address], [facility] 04/02/2023 16:34:25 04/03/20 23 01033: PT Eval Low Complexity completed Jyothi Cloud, PT [address] [place], [address], [facility] 04/02/2023 16:34:25 04/03/20 23 Treatment and Advice completed Jyothi Cloud, PT [address] [place], [address], [facility] 04/03/2023 15:01:47 04/28/20 22 Physical Activity Counselling completed Joanna Thurman, PT [address] [place], [address], [facility] 04/28/2022 11:56:57 11/27/19 22 Physical Activity Counselling completed Joanna Thurman, PT [address] [place], [address], [facility] 11/26/2021 09:01:22 01/01/20 19 Medicare Wellness Visit completed Leonra Johnson [facility] 12/31/2018 09:30:08 12/24/19 19 Toenail Avulsion completed Georgina Joshi, DPOpal [address] [place], [address], [facility] 12/24/2018 07:47:50 11/26/19 19 Physical Activity Counselling completed Joanna Thurman, PT [address] [place], [address], [facility] 11/26/2018 08:09:43 07/12/20 18 Physical Activity Counselling completed Joanna Thurman, PT [address] [place] [address], [address], [facility] 07/12/2018 16:58:41 03/10/20 18 Physical Activity Counselling [place], [address], [facility] 03/11/2018 07:19:23 03/10/20 18 01817: PT Eval, Moderate Complexity [place], [address], [facility] 03/11/2018 07:19:32 12/30/19 18 Medicare Wellness Visit completed Annie Renteria [facility] 12/29/2017 13:21:17 11/12/19 18 Physical Activity Counselling completed Che Woods [address] [place] [address], [address], [facility] 11/11/2017 13:04:00 11/12/19 18 39544: PT Eval Low [place], [address], [facility] 11/11/2017 13:04:00 07/21/20 17 Physical Activity Counselling [place], [address], [facility] 07/21/2017 19:51:12 07/21/20 17 12411: PT Eval Low Complexity [place], [address], [facility] 07/21/2017 19:51:12 12/27/19 17 82121: Therapeutic Exercise completed Jyothi Cloud, PT [address] [place], [address], [facility] 12/26/2016 13:14:34 12/27/19 17 02170: Ultrasound (1:1) completed Jyothi Cloud, PT [address] [place], [address], [facility] 12/26/2016 13:14:34 12/24/19 17 86500: Therapeutic Exercise completed Jyothi Cloud, PT [address] [place], [address], [facility] 12/23/2016 13:48:37 12/24/19 17 37105: Ultrasound (1:1) completed Jyothi Cloud, PT [address] [place], [address], [facility] 12/23/2016 13:48:21 12/17/19 17 28931: Therapeutic Exercise completed Jyothi Cloud, PT [address] [place], [address], [facility] 12/16/2016 22:06:28 11/27/19 17 Physical Activity Counselling completed Jyothi Cloud, PT [address] [place], [address], [facility] 11/26/2016 10:36:36 11/27/19 17 14625: PT Eval, Moderate Complexity completed Jyothi Cloud, PT [address] [place], [address], [facility] 11/26/2016 21:17:20 07/14/20 16 Physical Activity Counselling completed Che Woods [address] [place], [address], [facility] 07/14/2016 21:45:18 06/17/20 16 Medicare Wellness Visit completed Nuha Sanchez RN [facility] 06/17/2016 08:19:35 03/31/20 16 41162: PT Evaluation completed Enrique Zaman, PT [address] [place], [address], [facility] 03/31/2016 14:00:35 03/28/20 16 POC Strep Testing completed Imelda Godinez MA [facility] 03/31/2016 11:15:45 04/25/20 15 51110: Therapeutic Exercise completed Jyothi Cloud, PT [address] [place], [address], [facility] 04/25/2015 12:45:33 04/25/20 15 04986: Manual Therapy completed Jyothi Cloud, PT [address] [place], [address], [facility] 04/25/2015 12:45:33 04/18/20 15 41200: PT Evaluation completed Jyothi Cloud, PT [address] [place], [address], [facility] 04/18/2015 12:46:49 08/22/20 14 Incise and Drain with packing completed Peace Ruano, CONCRETE VAULT MAKER [address] [place], [address], [facility] 08/22/2014 14:22:12 Imaging Results Imaging Date Name Status LastModified by Organiz ation Details LastModified Time 07/30/2022 MAMMO, screening, tomosynthesis, bilateral completed [facility] (Imaging) [address], [place], [address], 08/01/2022 10:24:55 Procedure Notes None recorded. Medical Equipment None Reported. Allergies Allergen ID Allergen Name Allergen Category Reaction Reaction Severity Criticality Documentation Date Start Date Code Code System Note Provider Name and Address Organization Details Recorded Time 719441 propranol ol medicatio n Not available Not available Not available 04/15/2013 8787 RxNorm dizzy at lowes t dose Glenis Slade PA-C [address] [facility], [place], [address], [facility] 3 07:44:52 68089 codeine medicatio n Not available Not available Not available 02/06/2012 2670 RxNorm felt like she was going [facility] 11:34:42 Medications Name Sig Start Date Stop Date Status Note LastModified by Organization Details LastModified Time prednison e tab 20mg active Not Available Not Available Not Available meclizine tab 25mg active duplicat e Not Available Not Available Not Available tizanidin e tab 4mg active Not Available Not Available No t Available levothyro ramesh tab 50mcg active Not Available Not Available Not Available allergy rel tab 10mg active aka Zyrtec Not Available Not Available Not Available metoprolo l tab 25mg er active Not Available Not Available Not Available levothyro ramesh tab 75mcg 09/14 completed Not Available Not Available Not Available amox/k clav tab 875mg active Not Available Not Available Not Available hydrochlo rot cap 12.5mg active Not Available Not Available Not Available ipratropi um spr 0.06% active Not Available Not Available Not Available diltiazem cap 120mg er active Not Available Not Available Not Available metoprol tar tab 25mg active duplicat e Not Available Not Available Not Available Singulair [...] bromide 42 mcg (0.06 %) nasal spray [place] 2 sprays 3 times a day by [...] Status Former Smoker Maegan Chavez LPN null, [facility] 02/06/2012 14:55:41 Do You Have An Advance [...] not available 01/25/2015 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 0 Information not available 12/01/2012 Are There Any Guns Present In Your Home? No Information not available 01/02/2014 Live Alone Or With Others? With Others Information not available 01/02/2014 Does The Patient Have Difficulty Speaking Maltese? No Information not available 01/02/2014 Does The Patient Have Difficulty Reading Maltese? No Information not available 01/02/2014 Patient Has [...] History Condition Response Hyperlipidemia Y Rheumatoid Arthritis NEUROLOGIC Hypothyroid Y Hypertension Y RHEUMATOLOGIC Y Gynecological HistoryNo gynecological history recorded. Obstetrics History GPAL:G 0 P 0 0 0 0 Immunizations Vaccine Type Date Status Note Provider Nam e and Address Organization Details Recorded Time Influenza, split virus, quadrivalent, PF 4 completed Not Available [facility] 09/17/2019 02:18:56 Influenza, split virus, trivalent, PF 4 completed Not Available [facility] 09/17/2019 02:31:43 zoster live 4 completed Not Available [facility] 09/17/2019 02:16:36 Tdap 5 completed Not Available [facility] 09/17/2019 02:19:26 Influenza, split virus, quadrivalent, PF 5 completed Not Available [facility] 09/17/2019 02:25:39 Td(adult) unspecified formulation 4 [facility] 11/05/2012 11:05:45 Influenza, high-dose, trivalent, PF 6 completed Not Available [facility] 09/17/2019 02:21:05 Influenza, high-dose, trivalent, PF 8 completed Not Available [facility] 09/17/2019 02:35:35 Influenza, high-dose, trivalent, PF 9 completed Not Available [facility] 09/17/2019 02:25:35 Past Encounters Encounter ID Performer Location Encounter Start Date Encounter Closed Date Diagnosis/Indication Diagnosis SNOMED-CT Code Diagnosis ICD10 Code [id number] Rheumatol rosangela [address] [address] 02/06/2012 14:37:13 02/09/2012 08:16:56 [id number] Rheumatza adames [address] [place] [address] 03/08/2012 15:44:48 03/08/2012 16:12:52 [id number] Suresh adames [address] [place] [address] 08/09/2012 07:58:37 08/16/2012 08:50:53 [id number] Vida ROY [facility], OFFICE [address] [place] [address] 11/04/2012 11:15:14 11/04/2012 13:42:01 [id number] Vida ROY [facility], OFFICE [address] [place] [address] [place] [address] 11/18/2012 16:14:15 11/19/2012 07:57:17 [id number] SUNNY Pham [facility], OFFICE [address] [place] [address] 11/30/2012 14:08:06 12/01/2012 07:49:12 [id number] [facility], [address] [place] [address] 12/01/2012 09:56:09 12/02/2012 09:24:43 [id number] Id[facility], [address] [place] [address] 12/13/2012 09:52:08 12/14/2012 07:42:08 [id number] Michelle Jett , [facility], OFFICE [address] [facility] [place] [address] 12/17/2012 08:28:56 12/17/2012 09:27:12 Screening mammography [id number] Nuha Iniguez MA , [facility], OFFICE [address] [facility] [place], [place] [address] 02/03/2013 09:46:53 02/03/2013 10:54:35 [id number] Glenis Slade PA-C [facility], OFFICE [address] [place] [address] [place] [address] 02/17/2013 08:57:54 02/17/2013 09:34:44 [id number] Yun Sullivan MA , [facility], OFFICE [address] [facility] [place], [place] [address] 03/10/2013 07:07:22 03/10/2013 07:45:07 [id number] Lesli Leigh MD , [facility], OFFICE [address] [facility] [place] [address] 04/15/2013 07:18:02 04/15/2013 07:42:12 Benign essential hypertension 2641132 Raynaud's disease 125474 006 Dizziness 092838240 [id number] [facility], [address] [place] [address] 05/23/2013 09:24:44 05/26/2013 09:02:53 Benign paroxysmal positional vertigo 550838326 [id number] Id[facility], [address] [place] [address] 05/30/2013 14:59:03 06/01/2013 14:06:23 Benign paroxysmal positional vertigo 677384914 [id number] [facility], [address] [place] [address] 06/02/2013 07:50:52 06/03/2013 08:12:15 Benign paroxysmal positional vertigo 829503761 [id number] Id[facility], [address] [place] [address] 06/08/2013 10:00:19 06/09/2013 08:19:39 Benign paroxysmal positional vertigo 762083262 [id number] Rheumatol ogy, [address] [address] 08/19/2013 10:39:26 08/22/2013 10:10:10 Raynaud's disease 519761131 Limited sy stemic sclerosis 746988849 [id number] Nuha Iniguez MA , [facility], OFFICE [address] [place] [address] [place] [address] 09/15/2013 09:05:33 09/15/2013 09:56:59 Benign paroxysmal positional vertigo 423247459 Carpal mayank jason syndrome 89854074 Nasal congestion 5312760 0 [id number] Nuha Iniguez MA , [facility], OFFICE [address] [facility] [place] [address] 10/27/2013 10:03:07 10/27/2013 11:03:06 Influenza vaccine needed 8993386360 106 Paronychia 68929894 [id number] Che Woods [facility], [address] [place] [address] 12/19/2013 15:24:50 12/19/2013 16:11:32 Benign paroxysmal positional vertigo 107599656 [id number] Che Woods [facility], [address] [place] [address] 12/21/2013 17:13:35 12/22/2013 08:19:10 Benign paroxysmal positional vertigo 559690382 [id number] Che Woods [facility], [address] [place] [address] 12/27/2013 14:54:41 12/28/2013 16:20:22 Benign paroxysmal positional vertigo 319037076 [id number] [facility] [address] [facility] [place] [address] 01/02/2014 08:21:00 01/02/2014 09:17:37 Adult health examination 977596766 Screening for malignant neoplasm of colon 093899163 Varicella vaccination 68 189860 Administra tion of diphtheria, pertussis, and tetanus vaccine 377811964 Screening for malignant neoplasm of cervix 949169636 Benign ess ential hypertension 9829754 Hypothyroidism 56816499 [id number] Che Woods [facility], [address] [place] [address] 07/03/2014 13:01:38 07/04/2014 19:55:43 Hip pain 78478798 [id number] [facility] [address] [place] [address] [place] [address] 07/04/2014 07:58:34 07/04/2014 08:30:29 Influenza vaccine needed 3656706498 106 Varicella vaccination 68 960674 Benign ess ential hypertension 4679951 Hypothyroidism 39080233 [id number] Che Woods Physical [facility], [address] [place] [address] 07/06/2014 08:31:30 07/07/2014 12:32:29 Hip pain 81662424 [id number] Che Garcia [facility], [address] [facility] [place] [address] 07/13/2014 15:06:16 07/13/2014 16:21:42 Hip pain 51341942 [id number] Che Woods [facility], [address] [place] [address] 07/20/2014 09:27:05 07/21/2014 08:20:11 Hip pain 91930175 [id number] Ofelia Lopes LPN , [facility], OFFICE [address] [facility] [place] [address] 08/22/2014 13:55:53 08/22/2014 14:19:51 Onychia [id number] [place] Castillo, [facility], OFFICE [address] [facility] [place] [address] 09/11/2014 14:07:15 09/11/2014 14:56:24 Paronychia of finger 679924353 [id number] Kylah ROY, [facility], OFFICE [address] [place] [address] 01/25/2015 13:19:27 01/25/2015 14:20:09 Screening for malignant neoplasm of colon 485676582 Screening mammography 24 246783 Adult heal th examination 953152536 Administra tion of diphtheria, pertussis, and tetanus vaccine 096581826 [id number] Yun Sullivan MA , [facility], OFFICE [address] [place] [address] 04/17/2015 08:54:07 04/17/2015 09:21:59 Lifestyle 430455006 Sciatica 99342013 [id number] Jyothi Cloud PT Physical Therapy, [address] [address] 04/18/2015 10:08:11 04/18/2015 16:11:08 Hip pain 09390465 Sciatica 02950337 Inflammati on of sacroiliac joint 69673430 [id number] Jyothi Cloud PT Physical Therapy, [address] [address] 04/25/2015 08:36:09 04/26/2015 08:47:50 Hip pain 64828136 Sciatica 40882659 Inflammati on of sacroiliac joint 91437913 [id number] Yun Sullivan MA , [facility], OFFICE [address] [place] [address] 05/16/2015 14:21:12 05/16/2015 15:02:05 Influenza vaccine needed 9073352838 106 Onychomycosis 209676048 Lifestyle 943747287 [id number] Peace Ruano NP , [facility], OFFICE [address] [place] [address] 06/07/2015 14:19:45 06/07/2015 14:52:54 Onychomycosis 273301048 B35.1 [id number] Che Woods [facility], [address] [address] 06/21/2015 07:50:12 06/21/2015 10:45:22 Benign paroxysmal positional vertigo 957666031 H81.13 [id number] Che Garcia [facility], [address] [address] 06/25/2015 12:54:48 06/25/2015 18:04:06 Benign paroxysmal positional vertigo 703962429 H81.13 [id number] Peace Ruano NP , [facility], OFFICE [address] [place] [address] 07/05/2015 14:11:01 07/05/2015 15:37:21 Benign essential hypertension 3363526 I10 Raynaud's disease 787377 006 I73.[id number] [facility], [address] [address] 07/06/2015 08:41:00 07/16/2015 07:48:13 Raynaud's disease 168471966 I73.00 Limited sy stemic sclerosis 670641048 M34.9 Paronychia 77052893 L03. 071 [id number] Lesli Leigh MD Rheumatol [address] [address] 09/07/2015 08:44:36 09/07/2015 12:07:26 Limited systemic sclerosis 489356829 M34.9 Finger ulcer 391028911 L 98.499 Raynaud's phenomenon 266 699309 I73.00 [id number] Che Woods [facility], [address] [address] 10/02/2015 09:31:48 10/03/2015 23:23:19 Benign paroxysmal positional vertigo 316780086 H81.13 [id number] Imelda suggs MA , [facility], OFFICE [address] [place] [address] 03/28/2016 10:30:17 03/28/2016 11:39:24 Acute upper respiratory infection 79291457 J06.9 Coxsackie virus disease 376809602 B34.1 [id number] Belkis Tabares MD , [facility], OFFICE [address] [place] [address] 03/29/2016 09:56:21 03/29/2016 10:42:35 Spasm of back muscles 196353126 M62.366 [id number] Enrique Austyn, PT Physical Therapy, [address] [place] [address] 03/31/2016 13:37:00 04/01/2016 08:39:49 Low back pain 314840009 M54.5 Sacroiliac joint pain 20 8710848 M53.3 [id number] Jeanine Valera , [facility], OFFICE [address] [facility] [place] [address] 04/07/2016 11:48:34 04/07/2016 13:29:26 Sinusitis 84019312 J32.9 Anti-nucle ar factor detected 576726484 R76.8 [id number] Lesli Leigh MD Rheumatol ogy, [address] [place] [address] 04/16/2016 08:55:37 04/16/2016 09:34:02 Limited systemic sclerosis 271239135 M34.9 Pneumonitis 232947061 J1 2.9 Raynaud's phenomenon 266 505115 I73.00 Primary fi bromyalgia syndrome 89193046 M79.7 [id number] Peace Ruano NP , [facility], OFFICE [address] [facility] [place] [address] 06/17/2016 08:15:19 06/17/2016 09:12:56 Adult health examination 123346433 Z00.00 Counseling 063048280 Z71 .9 Active or passive immunization 347717396 Z23 Subconjunc tival hemorrhage 38905576 H11.31 Benign ess ential hypertension 2735439 I10 [id number] Che Woods [facility], [address] [place] [address] 07/14/2016 15:50:36 07/15/2016 08:06:45 Benign paroxysmal positional vertigo 862267462 H81.13 [id number] Che Woods [facility], [address] [place] [address] 07/31/2016 11:14:06 08/04/2016 07:42:56 Benign paroxysmal positional vertigo 355102907 H81.13 [id number] [facility], [address] [place] [address] 1 08/06/2016 16:20:02 08/07/2016 10:57:56 Benign paroxysmal positional vertigo 418731356 H81.13 [id number] [facility], [address] [address] 08/21/2016 07:51:48 08/21/2016 16:07:07 Benign paroxysmal positional vertigo 445977938 H81.13 [id number] [facility], [address] [place] [address] 1 09/15/2016 09:22:57 09/15/2016 15:40:37 Benign paroxysmal positional vertigo 798699301 H81.13 [id number] Enrique Jones MD , [facility], [address] [place] [address] 09/18/2016 08:45:46 09/18/2016 09:28:05 Palpitations 93975404 R00.2 Obesity 800678747 E66.9 [id number] Jyothi Cloud, PT Physical Therapy, [address] [address] 1 11/26/2016 10:06:14 11/27/2016 08:07:38 Low back pain 171706604 M54.5 Sacroiliac joint pain 20 1231561 M53.3 [id number] Ambrocio Baugh MD Sports Medicine, [address] [address] 1 12/04/2016 13:20:22 12/05/2016 09:20:39 Hip pain 75172964 M25.551 M25.096 [id number] Jyothi Cloud, PT Physical Therapy, [address] [address] 1 12/16/2016 16:10:26 12/17/2016 13:16:15 Low back pain 648277644 M54.5 Sacroiliac joint pain 20 2805661 M53.3 [id number] Jyothi Cloud, PT Physical Therapy, [address] [address] 1 12/23/2016 13:06:34 12/23/2016 14:08:48 Low back pain 271721145 M54.5 Sacroiliac joint pain 20 5739555 M53.3 [id number] Peace Ruano NP , [facility], [address] [place] [address] 12/25/2016 12:38:08 12/25/2016 13:16:45 Limited systemic sclerosis 508697141 M34.9 Benign ess ential hypertension 9508577 I10 [id number] Jyothi Cloud, PT Physical Therapy, [address] [address] 1 12/26/2016 12:57:05 12/26/2016 14:20:48 Low back pain 938903881 M54.5 Sacroiliac joint pain 20 7787965 M53.3 [id number] Jyothi Cloud, PT Physical Therapy, [address] [address] 1 12/26/2016 14:53:31 12/26/2016 14:53:47 [id number] Belkis Tabares MD , [facility], [address] [place] [address] 1 01/13/2017 13:02:05 01/13/2017 16:52:17 Acute allergic serous otitis media 83300753 H65.261 [id number] TIMMY Narayanan , [facility], OFFICE [address] [place] [address] 1 05/06/2017 15:02:11 05/06/2017 15:30:13 Hypothyroidism 97547707 E03.9 Benign ess ential hypertension 4688630 I10 [id number] Lesli Leigh MD Rheumatol ogy, [address] [address] 1 05/25/2017 13:32:18 05/25/2017 16:45:06 Limited systemic sclerosis 737955235 M34.9 Tachycardia 4993678 R00. 0 Raynaud's phenomenon 266 074441 I73.00 Bursitis of shoulder 239 100706 M75.51 [id number] [facility], [address] [address] 1 07/21/2017 08:51:26 07/21/2017 20:28:31 Shoulder pain 39446345 M25.511 M25.512 Dizziness 435523543 R42 [id number] Lesli Leigh MD Rheumatol ogy, [address] [address] 1 07/31/2017 09:54:36 07/31/2017 11:14:12 Limited systemic sclerosis 117601209 M34.9 Paronychia of finger 444 117651 L03.019 Raynaud's phenomenon 266 680506 I73.00 [id number] [facility], [address] [address] 08/03/2017 11:25:35 08/03/2017 12:22:14 Shoulder pain 59237202 M25.511 M25.512 Dizziness 944774213 R42 [id number] [place] [facility], [address] [address] 1 08/06/2017 11:19:10 08/07/2017 09:54:28 Shoulder pain 22064423 M25.511 M25.512 Dizziness 044162730 R42 [id number] [facility], [address] [address] 08/25/2017 12:22:51 08/25/2017 12:58:39 Shoulder pain 11561659 M25.511 M25.512 Dizziness 674331737 R42 [id number] [facility], [address] [address] 1 11/11/2017 12:23:27 11/12/2017 16:37:09 Benign paroxysmal positional vertigo 479747046 H81.12 [id number] Peace Ruano NP , [facility], OFFICE [address] [place] [address] 1 11/12/2017 14:08:00 11/12/2017 16:23:31 Dizziness 603965907 R42 Screening mammography 24 051389 Z12.31 Acute sinusitis 50505263 J01.90 Screening for malignant neoplasm of colon 493163890 Z12.11 [id number] [place] [facility], [address] [address] 1 11/12/2017 14:34:59 11/12/2017 16:34:28 Benign paroxysmal positional vertigo 956809749 H81.12 [id number] [facility], [address] [place] [address] 11/17/2017 09:22:32 11/17/2017 12:14:15 Benign paroxysmal positional vertigo 836558218 H81.12 [id number] [facility], [address] [place] [address] 12/02/2017 11:22:19 12/02/2017 13:39:38 Benign paroxysmal positional vertigo 712111074 H81.12 [id number] [facility], [address] [place] [address] 1 12/22/2017 12:26:25 12/22/2017 19:48:05 Benign paroxysmal positional vertigo 600730539 H81.12 [id number] TIMMY Macias, [facility], OFFICE [address] [facility] [place] [address] 1 12/23/2017 10:12:02 12/23/2017 12:20:02 Benign paroxysmal positional vertigo 032241975 H81.13 [id number] [facility], [address] [place] [address] 1 12/23/2017 12:52:51 12/23/2017 13:50:58 Benign paroxysmal positional vertigo 030779915 H81.12 [id number] [facility], [address], [place] [address] 1 12/24/2017 11:19:03 12/27/2017 21:15:10 Benign paroxysmal positional vertigo 047592706 H81.12 [id number] TIMMY Macias, [facility], OFFICE [address] [facility] [place] [address] 1 12/29/2017 13:16:02 12/29/2017 14:17:05 Adult health examination 744080902 Z00.00 Counseling 004392555 Z71 .9 Depression screening 171 790512 Z13.89 Benign ess ential hypertension 9635659 I10 Screening for malignant neoplasm of colon 641638352 Z12.11 Acute sinusitis 84779201 J01.90 Hypercholesterolemia 136 98875 E78.00 Screening mammography 24 971962 Z12.31 Dizziness 706267307 R42 [id number] [facility], [address] [place] [address] 1 12/29/2017 14:16:43 12/30/2017 07:59:55 Benign paroxysmal positional vertigo 476118579 H81.12 [id number] [facility], [address] [address] 1 12/31/2017 13:23:45 12/31/2017 14:07:25 Benign paroxysmal positional vertigo 796118638 H81.12 [id number] [facility], [address] [place] [address] 1 03/10/2018 13:59:23 03/11/2018 12:12:38 Shoulder pain 97364506 M25.756 [id number] [facility], [address] [address] 1 03/22/2018 15:52:29 03/22/2018 16:36:57 Shoulder pain 74600971 M25.531 [id number] Joanna Thurman, PT Physical Therapy, [address] [address] 1 07/12/2018 16:22:54 07/13/2018 09:48:57 Benign paroxysmal positional vertigo 840450589 H81.11 [id number] Joanna Thurman, PT Physical Therapy, [address] [address] 1 07/14/2018 12:05:50 07/14/2018 14:01:38 Benign paroxysmal positional vertigo 295638181 H81.11 [id number] Peace Ruano NP FP, [facility], OFFICE [address] [place] [address] 1 07/15/2018 13:01:26 07/15/2018 13:43:13 Benign essential hypertension 3656780 I10 Active or passive immunization 783154063 Z23 Benign par oxysmal positional vertigo 694480904 H81.10 [id number] [facility], [address] [address] 08/17/2018 11:19:11 08/17/2018 21:10:32 Benign paroxysmal positional vertigo 961551728 H81.12 [id number] [facility], [address] [place] [address] 1 08/19/2018 08:53:11 08/20/2018 21:43:05 Benign paroxysmal positional vertigo 784405459 H81.12 [id number] [facility], [address] [place] [address] 1 08/26/2018 09:53:12 08/26/2018 16:32:41 Benign paroxysmal positional vertigo 175793355 H81.12 [id number] Peace Ruano NP , [facility], OFFICE [address] [place] [address], [place] [address] 1 11/08/2018 07:28:42 11/08/2018 07:50:11 Onychomycosis 969247474 B35.1 [id number] Joanna Thurman, PT Physical Therapy, [address] [place] [address] 1 11/25/2018 10:47:08 11/26/2018 08:18:11 Benign paroxysmal positional vertigo 299017815 H81.12 [id number] Joanna Thurman, PT Physical Therapy, [address] [place] [address] 1 11/26/2018 09:26:09 11/26/2018 10:25:05 Benign paroxysmal positional vertigo 452298349 H81.12 [id number] Caprice Bonner D.O. , [facility], OFFICE [address] [place] [address], [place] [address] 1 12/09/2018 10:44:38 12/09/2018 11:19:40 Ingrowing toenail 386833061 L60.0 Onychomycosis 607191475 B35.1 Pre-surger y evaluation 960110801 Z01.818 Cataract of left eye 520 5234920 5015092 H26.9 [id number] Georgina Joshi DPM Podiatry, [address] [address] 1 12/23/2018 07:44:49 12/23/2018 10:17:20 Ingrowing toenail 428768643 L60.0 Pain in toe 503658488 M7 9.811 [id number] Peace Ruano NP FP, [facility], OFFICE [address] [place] [address], [place] [address] 1 12/31/2018 09:26:21 12/31/2018 10:18:19 Adult health examination 126452659 Z00.00 Counseling 186894087 Z71 .9 Depression screening 171 325559 Z13.89 Benign ess ential hypertension 1774280 I10 [id number] Georgina Joshi DPM Podiatry, [address] [address] 1 01/05/2019 13:09:59 01/06/2019 13:32:18 Ingrowing toenail 984019106 L60.0 Pain in toe 993791880 M7 9.243 [id number] Kitty Osorio RN , [facility], OFFICE [address] [place] [address], [place] [address] 1 02/01/2019 14:24:10 02/01/2019 14:45:25 Benign essential hypertension 7034093 I10 [id number] Peace Ruano NP FP, [facility], OFFICE [address] [place] [address], [place] [address] 1 03/01/2019 08:32:48 03/01/2019 09:09:54 Palpitations 88999697 R00.2 Benign ess ential hypertension 3834946 I10 [id number] Peace Ruano NP FP, [facility], OFFICE [address] [place] [address], [place] [address] 1 04/04/2019 08:47:16 04/05/2019 15:13:04 Benign essential hypertension 6732830 I10 [id number] Michelle Luevano LPN FP, [facility], OFFICE [address] [place] [address], [place] [address] 1 07/07/2019 06:59:44 07/08/2019 06:48:53 Active or passive immunization 814270134 Z23 [id number] Joanna Thurman PT Physical Therapy, [address] [address] 1 03/18/2021 14:17:44 03/19/2021 09:00:32 Benign paroxysmal positional vertigo 667569295 H81.12 [id number] Joanna Bucala, PT Physical Therapy, [address], [place] [address] 03/25/2021 08:51:43 03/25/2021 10:50:40 Benign paroxysmal positional vertigo 676926479 H81.12 [id number] Joanna Thurman, PT Physical Therapy, [address], [place] [address] 1 03/26/2021 10:52:43 03/26/2021 11:48:09 Benign paroxysmal positional vertigo 478956251 H81.12 [id number] Joanna Thurman, PT Physical Therapy, [address], [place] [address] 1 03/28/2021 09:24:44 03/28/2021 10:20:20 Benign paroxysmal positional vertigo 906971805 H81.12 [id number] Joanna Thurman, PT Physical Therapy, [address], [place] [address] 1 04/12/2021 08:24:37 04/12/2021 09:25:30 Benign paroxysmal positional vertigo 743982740 H81.12 [id number] Joanna Thurman, PT Physical Therapy, [address], [place] [address] 1 04/15/2021 14:53:19 04/15/2021 15:45:40 Benign paroxysmal positional vertigo 783457602 H81.12 [id number] Joanna Thurman, PT Physical Therapy, [address], [place] [address] 04/19/2021 08:27:31 04/19/2021 09:32:27 Benign paroxysmal positional vertigo 313997737 H81.12 [id number] Joanna Thurman, PT Physical Therapy, [address], [place] [address] 1 04/29/2021 09:53:42 04/29/2021 11:05:00 Benign paroxysmal positional vertigo 430710229 H81.12 [id number] Joanna Thurman, PT Physical Therapy, [address] [place] [address] 1 05/07/2021 07:45:05 05/08/2021 07:52:53 Benign paroxysmal positional vertigo 882702806 H81.12 [id number] Joanna Thurman, PT Physical Therapy, [address], [place] [address] 05/15/2021 10:50:25 05/15/2021 12:12:27 Benign paroxysmal positional vertigo 474588885 H81.12 [id number] Joanna Thurman, PT Physical Therapy, [address], [place] [address] 1 11/26/2021 08:24:40 11/26/2021 09:31:24 Benign paroxysmal positional vertigo 344936552 H81.13 [id number] Joanna Thurman, PT Physical Therapy, [address], [place] [address] 1 11/28/2021 11:26:26 11/28/2021 12:31:18 Benign paroxysmal positional vertigo 402622006 H81.13 [id number] Joanna Thurman, PT Physical Therapy, [address] [place] [address] 1 12/02/2021 10:24:19 12/02/2021 11:05:50 Benign paroxysmal positional vertigo 865417574 H81.13 [id number] Joanna Thurman, PT Physical Therapy, [address] [place] [address] 1 12/06/2021 09:23:36 12/06/2021 10:00:25 Benign paroxysmal positional vertigo 793892622 H81.13 [id number] Joanna Thurman, PT Physical Therapy, [address] [place] [address] 1 04/28/2022 11:21:21 04/28/2022 12:29:18 Benign paroxysmal positional vertigo 631893749 H81.13 [id number] Joanna Thurman, PT Physical Therapy, [address] [place] [address] 1 05/02/2022 09:55:35 05/02/2022 10:53:33 Benign paroxysmal positional vertigo 145553521 H81.13 [id number] Joanna Thurman, PT Physical Therapy, [address] [place] [address] 1 05/06/2022 11:42:39 05/07/2022 08:41:59 Benign paroxysmal positional vertigo 620949736 H81.13 [id number] Jyothi Cloud, PT Physical Therapy, [address] [place] [address] 04/03/2023 11:14:07 04/03/2023 15:28:29 Left-sided piriformis syndrome 7779772733 00794 M54.32 Trochanter ic bursitis of left hip 8474555736 94421 M70.62 Inflammati on of sacroiliac joint 84626855 M46.1 [id number] DAJA LIN, PT Physical Therapy, [address] [place] [address] 1 01/26/2024 10:47:07 01/26/2024 14:46:41 Benign paroxysmal positional vertigo 312078424 H81.11 [id number] DAJA LIN, PT Physical Therapy, [address] [place] [address] 1 01/28/2024 15:48:34 01/28/2024 17:01:06 Benign paroxysmal positional vertigo 672525716 H81.11 Health Concerns Section Related Observation LastModified by Organization Detai ls LastModified Time None Recorded Concern Status LastModified by Organization Details LastModified Time None Recorded Advance Directives Directive N: Discussed and gave form . sc Payers Encounter Date Sequence Insurance Name Policy Number Policy Arizmendi Covered Member ID Arizmendi Member ID Guarantor Name 05/02/2022 2 [facility] 1 (MEDICARE SUPPLEMENT) [id number] Rajani Mckeon Karinai [id number] Rajani Echeverrianathalia 05/02/2022 1 [place] [employer] Rajani Mckeon Hailey [id number] Rajani Hailey 05/06/2022 2 [facility] 1 (MEDICARE SUPPLEMENT) [id number] Rajani Mckeon Juwananoopkaycei [id number] Rajani Echeverriala nenai 05/06/2022 1 [place] [employer] Rajani Mckeon Hailey [id number] Rajani Karinai 04/03/2023 2 [facility] 1 (MEDICARE SUPPLEMENT) [id number] Rajani Collinsi [id number] Rajani Collinsi 04/03/2023 1 [place] [facility] Rajani Collinsi [id number] Rajani Parikhski 01/26/2024 2 [facility] 1 (MEDICARE SUPPLEMENT) [id number] Rajani Collinsi [id number] Rajani Parikhski 01/26/2024 1 [place] [facility] Rajani Collinsi [id number] Rajani Parikhski 01/28/2024 2 [facility] 1 (MEDICARE SUPPLEMENT) [id number] Rajani Collinsi [id number] Rajani Parikhski 01/28/2024 1 [place] [facility] Rajani Collinsi [id number] Rajani Collinsi Notes Date Note Type Note Provider Name and Address Organization Details Recorded Time 05/02/2022 text/html Dolly statest th at she is feeling better. She reports that she has not been having dizziness when rolling in bed. Joanna Thurman, PT [address] [place], [address], [facility] 05/02/2022 10:25:34 05/06/2022 text/html Dolly states bety t she has been feeling pretty good. I have only felt it once a tiny bit when I was rolling in bed. Joanna Thurman, PT [address] [place], [address], [facility] 05/07/2022 07:57:17 04/03/2023 text/html PT Initial Eval*Reported [...] by chiro/acupressure clinicians. Jyothi Cloud, PT [address] [place], [address], [facility] 04/03/2023 15:06:53 01/26/2024 text/html Pt is a 73 f referred by PCP (Soto STINSON at [facility]) for vertigo. This episode onset a couple [...] or when sleeping. SHANTAL LIN, PT [address] [place], [address], [facility] 01/26/2024 14:36:17 01/28/2024 text/html Belva great the first day, and generally speaking, [...] f referred by PCP (Soto STINSON at [facility]) for vertigo. This episode onset a couple [...] or when sleeping. SHANTAL LIN, PT [address] [place], [address], [facility] 01/28/2024 16:25:36 OBGyn Episode No OBEpisode recorded.
== END 2024-09-01 10:45 | disposition home or self-care (01) ==
LOC: HO.MRI 10:44
PROVIDERS: PCP Internal Medicine; Visit Provider Internal Medicine
DX: M54.16 Radiculopathy, lumbar region (principal); M48.00 Spinal stenosis, site unspecified
CPT/HCPCS: 72148

== ENCOUNTER 2024-09-02 09:07 | Outpatient (AMB) | payer MEDICARE, OTHER, SELFPAY ==
[2024-09-02 09:11] VITALS: BP 106/62; PULSE 78; O2SAT 97; BMI 32.6
--- NOTE | 2024-09-02 09:11 | MHC.OFFVIS ---
Vital Signs 09/02/24 09:11 Height 5 ft 3 in Weight 184 lb 1.376 oz BMI 32.6 BP 106/62 Blood Pressure Location Rt brachial Position Sitting Pulse 78 Pulse Source Doppler Pulse Oximetry (%) 97 Oxygen Delivery Method Room Air Intake Visit Reasons: [facility] Allergies codeine Allergy (Severe, Verified 08/30/24 12:59) felt like going to propranolol Allergy (Intermediate, Verified 08/30/24 12:59) dizziness Seasonal Allergies Allergy (Intermediate, Verified 08/30/24 12:59) Sneezing, vertigo HPI HPI HUDSON: Details: 73-year-old lady, former 40 pack smoker, quit 30 years prior, with underlying CREST under Rheumatology care, now followed for pulmonary component of dyspnea on exertion and 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 Patient respiratory symptoms controlled on prednisone 30 mg daily, however recently she had with to cut it down to 20 mg daily secondary to concerns from her economics consultant/cardio and his dyspnea is not as well controlled. Patient also with referred to [facility] by her [facility] economics consultant for workup of pulmonary hypertension, though no significant pulmonary hypertension has been noted on right heart catheterization or 2D echocardiogram. She continues on Lasix 60 mg daily. After the last office visit patient has normal supplemental oxygen. Patient is no longer planned mitral valve repair or replacement. [facility] Medical History (Updated 09/02/24 @ 09:49 by Pancho Monson MD) Pacemaker Lower thoracic back pain Bifascicular block Supplemental oxygen dependent CREST (calcinosis, Raynaud's phenomenon, esophageal dysfunction, sclerodactyly, telangiectasia) Dyspnea on exertion Pericardial effusion Hypothyroid Enlarged thyroid Hypertension Multinodular thyroid Telangiectasia Dysphagia Surgical History (Updated 09/02/24 @ 08:53 by Uma Glaser PA-C) S/P placement of cardiac pacemaker S/P cardiac cath S/P tooth extraction Hx of colonoscopy H/O breast biopsy Family History Father Heart disease Sister Ovarian cancer Brother Heart attack Stroke Mother Thyroid disease Brother Asthma Social History Household Members: Spouse Housing: House Do you presently have visiting nurse or other home services: Yes ([facility] ,PT) Alcohol intake: never Patient Tobacco Use Status: Former Tobacco user Tobacco use type: Cigarette Years Smoked: 20 +/- e-Cigarette/Vaping Use: Never Used Second Hand Smoke Exposure: Yes Advance Directives Date on File: 02/13/24 service: No Current occupational status: retired 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 Cognitive needs: No Hearing needs: No Vision needs: No Review of Systems Const Denies daytime sleepiness, Denies excessive sweating, Denies fatigue, Denies fever(s), Denies lethargy, Denies malaise, Denies night sweats, Denies snoring and Denies weight loss Eyes Denies blurry vision and Denies itchy eyes ENT Denies nasal congestion, Denies post nasal drip, Denies sinus pain, Denies sinus pressure and Denies other ( Thrush) Card Denies chest pain, Denies pedal edema, Denies dyspnea, Denies orthopnea and Denies paroxysmal nocturnal dyspnea Resp Denies cough, Denies hemoptysis, Denies excessive phlegm production, Denies dyspnea, Denies snoring and Denies wheezing GI Denies abdominal pain and Denies heartburn Musc Reports back pain, Denies myalgias, Denies arthralgias and Denies joint swelling Skin/Breast Denies rash Neuro Denies memory loss and Denies seizure-like activity Psych Denies abnormal sleep pattern, Denies anxiety and Denies memory loss Endo Denies excessive sweating, Denies fatigue and Denies heat intolerance Kenneth/Lymph Denies easy bruising Aller/Immun Denies itchy eyes, Denies seasonal rhinorrhea and Denies wheezing Physical Exam Vital Signs: Last Vital Signs Pulse 78 09/02/24 09:11 BP 106/62 09/02/24 09:11 Pulse Ox 97 09/02/24 09:11 Oxygen Delivery Method Room Air 09/02/24 09:11 BMI result Body Mass Index 32.6 Const General: no acute distress and alert Nutritional Appearance: not obese Orientation/consciousness: Other orientation findings ( oriented) HEENT Head: Yes atraumatic Eyes General: appearance normal, both eyes and all related structures Sclerae: sclerae normal EOM: EOMs intact bilaterally Neck Neck: Yes supple Lymphatic: no lymphadenopathy noted Resp Effort & Inspection: normal respiratory effort and no use of accessory muscles Auscultation: clear to auscultation bilaterally Cardio Rate: regular rate Rhythm: regular rhythm Heart sounds: no gallops, no murmurs and no rubs Skin General skin exam: other ( warm) Extrem General: No clubbing, No cyanosis and Yes edema (1+ bilateral) Assessment & Plan Assessment & Plan (1) ILD (interstitial lung disease): Code(s): J84.9 - Interstitial pulmonary disease, unspecified Category: Medical (2) CREST (calcinosis, Raynaud's phenomenon, esophageal dysfunction, sclerodactyly, telangiectasia): Code(s): M34.1 - CR(E)ST syndrome Category: Medical Plan 6 minute walk test/supplemental oxygen evaluation performed patient no longer requires supplemental oxygen. Will cancer supplemental oxygen with [employer]. Will start on Imuran and titrate up slowly while down titrating prednisone. Medications: New azathioprine Take 1 tab daily for 2 weeks, then take 2 tabs daily 50 mg PO DIRECTED 46 tabs 0RF Coding Level of Care Code Est Pt Level 4 (50271) Complex EM visit Add On G2211 Diagnoses ILD (interstitial lung disease) J84.9 CREST (calcinosis, Raynaud's phenomenon, esophageal dysfunction, sclerodactyly, telangiectasia) M34.1
--- OUTSIDE RECORDS SUMMARY | 2024-09-02 09:27 | XMS_ITS | Clinical Summary ---
Author Organization Unknown Care Team Providers Care Substation Manager Name Role Phone REJI MARION, HELEN Unavailable Unavailab debbie VILLALOBOS LPN, BERKLEY Unavailable Unavailable JUNIOR FIGHTING VEHICLE INFANTRYMAN, ROBERT Unavailable Unavailable STEVEN RN, MARTINE Unavailable Unavailable FRANCISCO JAVIER PT, MARY ELLEN Unavailable Unavailable Payers Payer Name Policy Type Policy Number Effective Date Expira tion Date MEDICARE.NGS.PDGM [id number] Problems Condition Name Condition Details Condition Category [...] BLOCK, COMPLETE Active 08-31 00:00: 00 SENIOR CARE (CURRENT) USE OF INHALED STEROIDS Active 08-31 00:00: 00 PERSONAL HISTORY OF COVID-19 Active 12-31 00:00: 00 PRESENCE OF CARDIAC PACEMAKER Active 12-31 00:00: 00 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 08-31 [...] 12-07 00:00: 00 12-31 00:00 :00 No [id number] Per instruc tions Per instructio ns (route: oral) Med Classific ation: Endocrine hydrochloro thiazide 25 mg tablet 11-26 00:00: 00 02-14 23:59 :00 No [id number] LOWERS BLOOD PRESSURE 1 tablet DAILY 1 tablet DAILY (route: oral) Med Classific ation: Cardiovas cular Therapy Agents levothyroxi ne 75 mcg capsule 11-25 00:00: 00 02-24 23:59 :00 No [id number] HYPOTHYROID 1 capsule DAILY 1 capsule DAILY (route: oral) Med Classific ation: Endocrine acetaminoph en 500 mg tablet 12-31 00:00: 00 Yes [id number] PAIN 2 tablet 2 TIMES DAILY 2 tablet 2 TIMES DAILY (route: oral) Med Classific ation: Analgesic , Anti-infl ammatory or Antipyret ic albuterol sulfate HFA 90 mcg/actuati on aerosol inhaler 12-31 00:00: 00 Yes [id number] SOB/WHEEZIN G 2 puff EVERY 6 HOURS 2 puff EVERY 6 HOURS (route: inhalation ) Med Classific ation: Respirato ry Therapy Agents atorvastati n 40 mg tablet 12-31 00:00: 00 Yes [id number] LOWERS CHOLESTEROL 1 tablet BEDTIME 1 tablet BEDTIME (route: oral) Med Classific ation: Cardiovas cular Therapy Agents cyanocobala min (vit B-12) 1,000 mcg tablet 12-31 00:00: 00 Yes [id number] SUPPLEMENT 1 tablet DAILY 1 tablet DAILY (route: oral) Med Classific ation: Electroly te Balance-N utritiona l Products ibuprofen 600 mg tablet 12-31 00:00: 00 Yes [id number] PAIN 1 tablet 3 TIMES DAILY 1 tablet 3 TIMES DAILY (route: oral) Med Classific ation: Analgesic , Anti-infl ammatory or Antipyret ic meclizine 25 mg tablet 12-31 00:00: 00 02-24 23:59 :00 No [id number] DIZZINESS 1 tablet 3 TIMES DAILY 1 tablet 3 TIMES DAILY (route: oral) Med Classific ation: Gastroint estinal Therapy Agents metoprolol succinate ER 25 mg tablet,exte nded release 24 hr 12-31 00:00: 00 02-28 23:59 :00 No [id number] LOWERS BLOOD PRESSURE 1 tablet DAILY 1 tablet DAILY (route: oral) Med Classific ation: Cardiovas cular Therapy Agents naproxen sodium 220 mg capsule 12-31 00:00: 00 04-27 23:59 :00 No [id number] PAIN MANAGEMENT 1 capsule DAILY 1 capsule DAILY (route: oral) Med Classific ation: Analgesic , Anti-infl ammatory or Antipyret ic prednisone 10 mg tablet 12-31 00:00: 00 04-27 23:59 :00 No [id number] RESPIRATORY SX Per instruc tions DAILY Per instructio ns DAILY (route: oral) Med Classific ation: Endocrine furosemide 20 mg tablet 02-14 00:00: 00 02-18 23:59 :00 No [id number] FLUID RETENTION 1 tablet DAILY 1 tablet DAILY (route: oral) Med Classific ation: Cardiovas cular Therapy Agents Lasix 20 mg tablet 02-15 00:00: 00 02-18 23:59 :00 No [id number] SOB 3 tablet DAILY 3 tablet DAILY (route: oral) Alternate Route: BY MOUTH. Med Classific ation: Cardiovas cular Therapy Agents Lasix 20 mg tablet 02-18 00:00: 00 04-19 23:59 :00 No [id number] SOB 2 tablet DAILY 2 tablet DAILY (route: oral) Alternate Route: BY MOUTH. Med Classific ation: Cardiovas cular Therapy Agents levothyroxi ne 88 mcg tablet 03-01 00:00: 00 Yes [id number] HYPOTHYROID 1 tablet DAILY 1 tablet DAILY (route: oral) Med Classific ation: Endocrine meclizine 25 mg tablet 03-01 00:00: 00 Yes [id number] DIZZINESS 1 tablet 3 TIMES DAILY 1 tablet 3 TIMES DAILY (route: oral) Med Classific ation: Gastroint estinal Therapy Agents metoprolol succinate ER 25 mg tablet,exte nded release 24 hr 02-28 00:00: 00 03-22 23:59 :00 No [id number] LOWERS BLOOD PRESSURE 1 tablet 2 TIMES DAILY 1 tablet 2 TIMES DAILY (route: oral) Med Classific ation: Cardiovas cular Therapy Agents metoprolol succinate ER 50 mg tablet,exte nded release 24 hr 03-22 00:00: 00 04-19 23:59 :00 No [id number] HR 1 tablet 2 TIMES DAILY 1 tablet 2 TIMES DAILY (route: oral) Alternate Route: BY MOUTH. Med Classific ation: Cardiovas cular Therapy Agents omeprazole 40 mg capsule,del ayed release 03-22 00:00: 00 Yes [id number] HEARTBURN 1 capsule DAILY 1 capsule DAILY (route: oral) Alternate Route: BY MOUTH. Med Classific ation: Gastroint estinal Therapy Agents cyclobenzap rine 10 mg tablet 04-12 00:00: 00 05-19 23:59 :00 No [id number] PAIN 1 tablet DAILY 1 tablet DAILY (route: oral) Alternate Route: BY MOUTH. Med Classific ation: Locomotor System meloxicam 15 mg tablet 04-12 00:00: 00 06-01 23:59 :00 No [id number] PAIN 1 tablet DAILY 1 tablet DAILY (route: oral) Alternate Route: BY MOUTH. Med Classific ation: Analgesic , Anti-infl ammatory or Antipyret ic gabapentin 300 mg capsule 04-19 00:00: 00 05-19 23:59 :00 No [id number] PAIN MANAGEMENT 1 capsule BEDTIME 1 capsule BEDTIME (route: oral) Med Classific ation: Central Nervous System Agents furosemide 20 mg tablet 8 00:00: 00 Yes [id number] FLUID RETENTION 3 tablet DAILY 3 tablet DAILY (route: oral) Med Classific ation: Cardiovas cular Therapy Agents metoprolol succinate ER 25 mg tablet,exte nded release 24 hr 8 00:00: 00 06-01 23:59 :00 No [id number] AFIB 1 tablet EVERY PM 1 tablet EVERY PM (route: oral) Med Classific ation: Cardiovas cular Therapy Agents metoprolol succinate ER 50 mg tablet,exte nded release 24 hr 04-19 00:00: 00 06-01 23:59 :00 No [id number] AFIB 1 tablet DAILY 1 tablet DAILY (route: oral) Med Classific ation: Cardiovas cular Therapy Agents loratadine 10 mg capsule 04-30 00:00: 00 Yes [id number] ALLERGIES 1 capsule DAILY 1 capsule DAILY (route: oral) Med Classific ation: Respirato ry Therapy Agents magnesium 200 mg tablet 04-30 00:00: 00 Yes [id number] SUPPLEMENT 1 tablet DAILY 1 tablet DAILY (route: oral) Med Classific ation: Electroly te Balance-N utritiona l Products prednisone 10 mg tablet 04-30 00:00: 00 06-01 23:59 :00 No [id number] RESPIRATORY 1 tablet DAILY 1 tablet DAILY (route: oral) Med Classific ation: Endocrine tramadol 50 mg tablet 05-19 00:00: 00 Yes [id number] PAIN 1 tablet 2 TIMES DAILY 1 tablet 2 TIMES DAILY (route: oral) Alternate Route: BY MOUTH. Med Classific ation: Analgesic , Anti-infl ammatory or Antipyret ic metoprolol succinate ER 50 mg tablet,exte nded release 24 hr 2023-08 00:00: 00 Yes [id number] A-FIB 1 tablet 2 TIMES DAILY 1 tablet 2 TIMES DAILY (route: oral) Med Classific ation: Cardiovas cular Therapy Agents prednisone 10 mg tablet 2023-08 0-15 00:00: 00 06-22 23:59 :00 No [id number] PAIN 3 tablet DAILY 3 tablet DAILY (route: oral) Alternate Route: BY MOUTH. Med Classific ation: Endocrine prednisone 10 mg tablet 2023-08 00:00: 00 Yes [id number] INFLAMMATIO N 1 tablet DAILY 1 tablet DAILY (route: oral) Alternate Route: BY MOUTH. Med Classific ation: Endocrine prednisone 20 mg tablet 2023-08 00:00: 00 06-29 23:59 :00 No [id number] INFLAMMATIO N 1 tablet DAILY 1 tablet [...] TO EVALUATE, OBSERVE / ASSESS, AND MONITOR, FIGHTING VEHICLE INFANTRYMAN TO OBSERVE AND MONITOR, PROVIDE SKILLED THERAPEUTIC INTERVENTION, ACTIVITY, EDUCATION, AND TRAINING TO ADDRESS; [code = AGENCY MAY PERFORM A RESUMPTION OF CARE VISIT FOLLOWING ANY HOSPITAL ADMISSION. PT TO EVALUATE, OBSERVE / ASSESS, AND MONITOR, FIGHTING VEHICLE INFANTRYMAN TO OBSERVE AND MONITOR, PROVIDE SKILLED THERAPEUTIC INTERVENTION, ACTIVITY, EDUCATION, AND TRAINING TO ADDRESS;] Future Scheduled Test PT/FIGHTING VEHICLE INFANTRYMAN TO PROVIDE STAIR TRAINING [code = PT/FIGHTING VEHICLE INFANTRYMAN TO PROVIDE STAIR TRAINING] Future Scheduled Test PT/FIGHTING VEHICLE INFANTRYMAN TO PROVIDE GAIT TRAINING FOR IMPROVED MOBILITY AND /OR TO NORMALIZE GAIT PATTERN [code = PT/FIGHTING VEHICLE INFANTRYMAN TO PROVIDE GAIT TRAINING FOR IMPROVED MOBILITY AND /OR TO NORMALIZE GAIT PATTERN] Future Scheduled Test THERAPEUTI C EXERCISES AND ESTABLISHING A HOME EXERCISE PROGRAM (PT/FIGHTING VEHICLE INFANTRYMAN) [code = THERAPEUTIC EXERCISES AND ESTABLISHING A HOME EXERCISE PROGRAM (PT/FIGHTING VEHICLE INFANTRYMAN)] Future Scheduled Test NEUROMUSCU LAR RE-EDUCATION / BALANCE / POSTURAL CONTROL (PT) [code = NEUROMUSCULAR RE-EDUCATION / BALANCE / POSTURAL CONTROL (PT)] Future Scheduled Test PT/FIGHTING VEHICLE INFANTRYMAN TO IDENTIFY FALL RISK FACTORS; EDUCATE THE PATIENT/CAREGIVER ON WAYS TO REDUCE FALL RISK FACTORS AND ESTABLISH HOME EXERCISE PROGRAM TO MINIMIZE FALL RISK. MAY TEACH THE PATIENT FLOOR RECOVERY WHEN CLINICALLY APPROPRIATE [code = PT/FIGHTING VEHICLE INFANTRYMAN TO IDENTIFY FALL RISK FACTORS; EDUCATE THE PATIENT/CAREGIVER ON WAYS TO REDUCE FALL RISK FACTORS AND ESTABLISH HOME EXERCISE PROGRAM TO MINIMIZE FALL RISK. MAY TEACH THE PATIENT FLOOR RECOVERY WHEN CLINICALLY APPROPRIATE] Future Scheduled Test PT TO ASSE SS / FIGHTING VEHICLE INFANTRYMAN TO MONITOR FOR HEART FAILURE EXACERBATION AND RECORD PATIENT REPORTED WEIGHT, AND NOTIFY THE PHYSICIAN AND/OR THE RN CLINICAL MANAGER IT SECURITY FOR PHYSICIAN NOTIFICATION OF HF EXACERBATION (2LB WEIGHT GAIN IN 1 DAY, 5LBS IN A WEEK OR 5 LBS OVER BASELINE; INCREASED SOB, EDEMA, NEEDING MORE PILLOWS AT NIGHT, CRACKLES IN BASIS OF THE LUNGS OR PMI SHIFT) [code = PT TO ASSESS / FIGHTING VEHICLE INFANTRYMAN TO MONITOR FOR HEART FAILURE EXACERBATION AND RECORD PATIENT REPORTED WEIGHT, AND NOTIFY THE PHYSICIAN AND/OR THE RN CLINICAL MANAGER IT SECURITY FOR PHYSICIAN NOTIFICATION OF HF EXACERBATION (2LB WEIGHT GAIN IN 1 DAY, 5LBS IN A WEEK OR 5 LBS OVER BASELINE; INCREASED SOB, EDEMA, NEEDING MORE PILLOWS AT NIGHT, CRACKLES IN BASIS OF THE LUNGS OR PMI SHIFT)] Future Scheduled Test PT TO ASSE SS / FIGHTING VEHICLE INFANTRYMAN TO MONITOR CARDIO/RESPIRATORY SYSTEM; AND NOTIFY THE PHYSICIAN AND/OR THE RN CLINICAL MANAGER IT SECURITY FOR PHYSICIAN NOTIFICATION FOR EARLY SIGNS AND SYMPTOMS OF EXACERBATION OR DETERIORATION. [code = PT TO ASSESS / FIGHTING VEHICLE INFANTRYMAN TO MONITOR CARDIO/RESPIRATORY SYSTEM; AND NOTIFY THE PHYSICIAN AND/OR THE RN CLINICAL MANAGER IT SECURITY FOR PHYSICIAN NOTIFICATION FOR EARLY SIGNS AND SYMPTOMS OF EXACERBATION OR DETERIORATION.] Future Scheduled Test PT / FIGHTING VEHICLE INFANTRYMAN T O MONITOR AND EDUCATE ON OXYGEN SATURATION DURING ADLS/IADLS, NOTIFY PHYSICIAN AND/OR THE RN CLINICAL MANAGER IT SECURITY FOR PHYSICIAN NOTIFICATION AND IF O2 SATS BELOW PHYSICIAN ORDERED PARAMETERS AFTER 10 MIN OF REST [code = PT / FIGHTING VEHICLE INFANTRYMAN TO MONITOR AND EDUCATE ON OXYGEN SATURATION DURING ADLS/IADLS, NOTIFY PHYSICIAN AND/OR THE RN CLINICAL MANAGER IT SECURITY FOR PHYSICIAN NOTIFICATION AND IF O2 SATS BELOW PHYSICIAN ORDERED PARAMETERS AFTER 10 MIN OF REST] Future Scheduled Test PT / FIGHTING VEHICLE INFANTRYMAN M AY EDUCATE ON PAIN MANAGEMENT CLINICALLY INDICATED, INCLUDING NON-PHARMACOLOGICAL PAIN REDUCTION TECHNIQUES [code = PT / FIGHTING VEHICLE INFANTRYMAN MAY EDUCATE ON PAIN MANAGEMENT CLINICALLY INDICATED, INCLUDING NON-PHARMACOLOGICAL PAIN REDUCTION TECHNIQUES ] Future Scheduled Test PT / FIGHTING VEHICLE INFANTRYMAN T O INSTRUCT PATIENT/CAREGIVER ON RISK FOR HOSPITALIZATION/EMERGENCY ROOM VISITS, TEACH SIGNS AND SYMPTOMS THAT PUT PATIENT AT RISK, WHEN TO NOTIFY NURSE/PHYSICIAN OF COMPLICATIONS/DECLINE, AND WHEN TO CALL 911. [code = PT / FIGHTING VEHICLE INFANTRYMAN TO INSTRUCT PATIENT/CAREGIVER ON RISK FOR HOSPITALIZATION/EMERGENCY [...] End Date/Time Encounter Type Admission Type Attending [facility] Care Department Encounter ID Discharge Date Discharge Status Discharge Condition Discharge Reason Percent Goals Met 2024-01-01 00:00:00 2024-07-29 00:00:00 Outpatient [facility] MARY ELLEN NAYAK [facility] [id number] 2024-07-29 00:00:00 DISCHARGE TO HOME OR SELF CARE INDEPENDEN T IN THE COMM[facility] HH OR [facility]- GOALS MET 75.00
--- OUTSIDE RECORDS SUMMARY | 2024-09-02 09:27 | XMS_ITS | Continuity of Care Document ---
Author Organization [facility] Address [address] [place] [address] [address] [place], [place] Phone [phone] Care Team Providers Care Measuring Machine Tender Name Role Phone Dayan Barragan MD Care Team Information Rec eiver Unavailable Social History Type Date Description Comments Sex Unknown
--- OUTSIDE RECORDS SUMMARY | 2024-09-02 09:27 | XMS_ITS | Clinical Summary ---
Author Organization Unknown Care Team Providers Care Support Specialist Name Role Phone REJI MARION, HELEN Unavailable Unavailab debbie VILLALOBOS LPN, BERKLEY Unavailable Unavailable JUNIOR WILD LIFE MANAGER, ROBERT Unavailable Unavailable STEVEN RN, MARTINE Unavailable Unavailable FRANCISCO JAVIER PT, MARY ELLEN Unavailable Unavailable Payers Payer Name Policy Type Policy Number Effective Date Expira tion Date MEDICARE.NGS.PDGM [id number] Problems Condition Name Condition Details Condition Category [...] ULAR BLOCK, COMPLETE Active 08-31 00:00: 00 HALFWAY (CURRENT) USE OF INHALED STEROIDS Active 08-31 00:00: 00 PERSONAL HISTORY OF COVID-19 Active 12-31 00:00: 00 PRESENCE OF CARDIAC PACEMAKER Active 12-31 00:00: 00 TABLE FILLER (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) USE OF SYSTEMIC STEROIDS Active 08-31 [...] 12-07 00:00: 00 12-31 00:00 :00 No [id number] Per instruc tions Per instructio ns (route: oral) Med Classific ation: Endocrine hydrochloro thiazide 25 mg tablet 11-26 00:00: 00 02-14 23:59 :00 No [id number] LOWERS BLOOD PRESSURE 1 tablet DAILY 1 tablet DAILY (route: oral) Med Classific ation: Cardiovas cular Therapy Agents levothyroxi ne 75 mcg capsule 11-25 00:00: 00 02-24 23:59 :00 No [id number] HYPOTHYROID 1 capsule DAILY 1 capsule DAILY (route: oral) Med Classific ation: Endocrine acetaminoph en 500 mg tablet 12-31 00:00: 00 Yes [id number] PAIN 2 tablet 2 TIMES DAILY 2 tablet 2 TIMES DAILY (route: oral) Med Classific ation: Analgesic , Anti-infl ammatory or Antipyret ic albuterol sulfate HFA 90 mcg/actuati on aerosol inhaler 12-31 00:00: 00 Yes [id number] SOB/WHEEZIN G 2 puff EVERY 6 HOURS 2 puff EVERY 6 HOURS (route: inhalation ) Med Classific ation: Respirato ry Therapy Agents atorvastati n 40 mg tablet 12-31 00:00: 00 Yes [id number] LOWERS CHOLESTEROL 1 tablet BEDTIME 1 tablet BEDTIME (route: oral) Med Classific ation: Cardiovas cular Therapy Agents cyanocobala min (vit B-12) 1,000 mcg tablet 12-31 00:00: 00 Yes [id number] SUPPLEMENT 1 tablet DAILY 1 tablet DAILY (route: oral) Med Classific ation: Electroly te Balance-N utritiona l Products ibuprofen 600 mg tablet 12-31 00:00: 00 Yes [id number] PAIN 1 tablet 3 TIMES DAILY 1 tablet 3 TIMES DAILY (route: oral) Med Classific ation: Analgesic , Anti-infl ammatory or Antipyret ic meclizine 25 mg tablet 12-31 00:00: 00 02-24 23:59 :00 No [id number] DIZZINESS 1 tablet 3 TIMES DAILY 1 tablet 3 TIMES DAILY (route: oral) Med Classific ation: Gastroint estinal Therapy Agents metoprolol succinate ER 25 mg tablet,exte nded release 24 hr 12-31 00:00: 00 02-28 23:59 :00 No [id number] LOWERS BLOOD PRESSURE 1 tablet DAILY 1 tablet DAILY (route: oral) Med Classific ation: Cardiovas cular Therapy Agents naproxen sodium 220 mg capsule 12-31 00:00: 00 04-27 23:59 :00 No [id number] PAIN MANAGEMENT 1 capsule DAILY 1 capsule DAILY (route: oral) Med Classific ation: Analgesic , Anti-infl ammatory or Antipyret ic prednisone 10 mg tablet 12-31 00:00: 00 04-27 23:59 :00 No [id number] RESPIRATORY SX Per instruc tions DAILY Per instructio ns DAILY (route: oral) Med Classific ation: Endocrine furosemide 20 mg tablet 02-14 00:00: 00 02-18 23:59 :00 No [id number] FLUID RETENTION 1 tablet DAILY 1 tablet DAILY (route: oral) Med Classific ation: Cardiovas cular Therapy Agents Lasix 20 mg tablet 02-15 00:00: 00 02-18 23:59 :00 No [id number] SOB 3 tablet DAILY 3 tablet DAILY (route: oral) Alternate Route: BY MOUTH. Med Classific ation: Cardiovas cular Therapy Agents Lasix 20 mg tablet 02-18 00:00: 00 04-19 23:59 :00 No [id number] SOB 2 tablet DAILY 2 tablet DAILY (route: oral) Alternate Route: BY MOUTH. Med Classific ation: Cardiovas cular Therapy Agents levothyroxi ne 88 mcg tablet 03-01 00:00: 00 Yes [id number] HYPOTHYROID 1 tablet DAILY 1 tablet DAILY (route: oral) Med Classific ation: Endocrine meclizine 25 mg tablet 03-01 00:00: 00 Yes [id number] DIZZINESS 1 tablet 3 TIMES DAILY 1 tablet 3 TIMES DAILY (route: oral) Med Classific ation: Gastroint estinal Therapy Agents metoprolol succinate ER 25 mg tablet,exte nded release 24 hr 02-28 00:00: 00 03-22 23:59 :00 No [id number] LOWERS BLOOD PRESSURE 1 tablet 2 TIMES DAILY 1 tablet 2 TIMES DAILY (route: oral) Med Classific ation: Cardiovas cular Therapy Agents metoprolol succinate ER 50 mg tablet,exte nded release 24 hr 03-22 00:00: 00 04-19 23:59 :00 No [id number] HR 1 tablet 2 TIMES DAILY 1 tablet 2 TIMES DAILY (route: oral) Alternate Route: BY MOUTH. Med Classific ation: Cardiovas cular Therapy Agents omeprazole 40 mg capsule,del ayed release 03-22 00:00: 00 Yes [id number] HEARTBURN 1 capsule DAILY 1 capsule DAILY (route: oral) Alternate Route: BY MOUTH. Med Classific ation: Gastroint estinal Therapy Agents cyclobenzap rine 10 mg tablet 04-12 00:00: 00 05-19 23:59 :00 No [id number] PAIN 1 tablet DAILY 1 tablet DAILY (route: oral) Alternate Route: BY MOUTH. Med Classific ation: Locomotor System meloxicam 15 mg tablet 04-12 00:00: 00 06-01 23:59 :00 No [id number] PAIN 1 tablet DAILY 1 tablet DAILY (route: oral) Alternate Route: BY MOUTH. Med Classific ation: Analgesic , Anti-infl ammatory or Antipyret ic gabapentin 300 mg capsule 04-19 00:00: 00 05-19 23:59 :00 No [id number] PAIN MANAGEMENT 1 capsule BEDTIME 1 capsule BEDTIME (route: oral) Med Classific ation: Central Nervous System Agents furosemide 20 mg tablet 8 00:00: 00 Yes [id number] FLUID RETENTION 3 tablet DAILY 3 tablet DAILY (route: oral) Med Classific ation: Cardiovas cular Therapy Agents metoprolol succinate ER 25 mg tablet,exte nded release 24 hr 8 00:00: 00 06-01 23:59 :00 No [id number] AFIB 1 tablet EVERY PM 1 tablet EVERY PM (route: oral) Med Classific ation: Cardiovas cular Therapy Agents metoprolol succinate ER 50 mg tablet,exte nded release 24 hr 04-19 00:00: 00 06-01 23:59 :00 No [id number] AFIB 1 tablet DAILY 1 tablet DAILY (route: oral) Med Classific ation: Cardiovas cular Therapy Agents loratadine 10 mg capsule 04-30 00:00: 00 Yes [id number] ALLERGIES 1 capsule DAILY 1 capsule DAILY (route: oral) Med Classific ation: Respirato ry Therapy Agents magnesium 200 mg tablet 04-30 00:00: 00 Yes [id number] SUPPLEMENT 1 tablet DAILY 1 tablet DAILY (route: oral) Med Classific ation: Electroly te Balance-N utritiona l Products prednisone 10 mg tablet 04-30 00:00: 00 06-01 23:59 :00 No [id number] RESPIRATORY 1 tablet DAILY 1 tablet DAILY (route: oral) Med Classific ation: Endocrine tramadol 50 mg tablet 05-19 00:00: 00 Yes [id number] PAIN 1 tablet 2 TIMES DAILY 1 tablet 2 TIMES DAILY (route: oral) Alternate Route: BY MOUTH. Med Classific ation: Analgesic , Anti-infl ammatory or Antipyret ic metoprolol succinate ER 50 mg tablet,exte nded release 24 hr 2023-08 00:00: 00 Yes [id number] A-FIB 1 tablet 2 TIMES DAILY 1 tablet 2 TIMES DAILY (route: oral) Med Classific ation: Cardiovas cular Therapy Agents prednisone 10 mg tablet 2023-08 0-15 00:00: 00 06-22 23:59 :00 No [id number] PAIN 3 tablet DAILY 3 tablet DAILY (route: oral) Alternate Route: BY MOUTH. Med Classific ation: Endocrine prednisone 10 mg tablet 2023-08 00:00: 00 Yes [id number] INFLAMMATIO N 1 tablet DAILY 1 tablet DAILY (route: oral) Alternate Route: BY MOUTH. Med Classific ation: Endocrine prednisone 20 mg tablet 2023-08 00:00: 00 06-29 23:59 :00 No [id number] INFLAMMATIO N 1 tablet DAILY 1 tablet [...] TO EVALUATE, OBSERVE / ASSESS, AND MONITOR, WILD LIFE MANAGER TO OBSERVE AND MONITOR, PROVIDE SKILLED THERAPEUTIC INTERVENTION, ACTIVITY, EDUCATION, AND TRAINING TO ADDRESS; [code = AGENCY MAY PERFORM A RESUMPTION OF CARE VISIT FOLLOWING ANY HOSPITAL ADMISSION. PT TO EVALUATE, OBSERVE / ASSESS, AND MONITOR, WILD LIFE MANAGER TO OBSERVE AND MONITOR, PROVIDE SKILLED THERAPEUTIC INTERVENTION, ACTIVITY, EDUCATION, AND TRAINING TO ADDRESS;] Future Scheduled Test PT/WILD LIFE MANAGER TO PROVIDE STAIR TRAINING [code = PT/WILD LIFE MANAGER TO PROVIDE STAIR TRAINING] Future Scheduled Test PT/WILD LIFE MANAGER TO PROVIDE GAIT TRAINING FOR IMPROVED MOBILITY AND /OR TO NORMALIZE GAIT PATTERN [code = PT/WILD LIFE MANAGER TO PROVIDE GAIT TRAINING FOR IMPROVED MOBILITY AND /OR TO NORMALIZE GAIT PATTERN] Future Scheduled Test THERAPEUTI C EXERCISES AND ESTABLISHING A HOME EXERCISE PROGRAM (PT/WILD LIFE MANAGER) [code = THERAPEUTIC EXERCISES AND ESTABLISHING A HOME EXERCISE PROGRAM (PT/WILD LIFE MANAGER)] Future Scheduled Test NEUROMUSCU LAR RE-EDUCATION / BALANCE / POSTURAL CONTROL (PT) [code = NEUROMUSCULAR RE-EDUCATION / BALANCE / POSTURAL CONTROL (PT)] Future Scheduled Test PT/WILD LIFE MANAGER TO IDENTIFY FALL RISK FACTORS; EDUCATE THE PATIENT/CAREGIVER ON WAYS TO REDUCE FALL RISK FACTORS AND ESTABLISH HOME EXERCISE PROGRAM TO MINIMIZE FALL RISK. MAY TEACH THE PATIENT FLOOR RECOVERY WHEN CLINICALLY APPROPRIATE [code = PT/WILD LIFE MANAGER TO IDENTIFY FALL RISK FACTORS; EDUCATE THE PATIENT/CAREGIVER ON WAYS TO REDUCE FALL RISK FACTORS AND ESTABLISH HOME EXERCISE PROGRAM TO MINIMIZE FALL RISK. MAY TEACH THE PATIENT FLOOR RECOVERY WHEN CLINICALLY APPROPRIATE] Future Scheduled Test PT TO ASSE SS / WILD LIFE MANAGER TO MONITOR FOR HEART FAILURE EXACERBATION AND RECORD PATIENT REPORTED WEIGHT, AND NOTIFY THE PHYSICIAN AND/OR THE RN CLINICAL GENERAL LABORER FOR PHYSICIAN NOTIFICATION OF HF EXACERBATION (2LB WEIGHT GAIN IN 1 DAY, 5LBS IN A WEEK OR 5 LBS OVER BASELINE; INCREASED SOB, EDEMA, NEEDING MORE PILLOWS AT NIGHT, CRACKLES IN BASIS OF THE LUNGS OR PMI SHIFT) [code = PT TO ASSESS / WILD LIFE MANAGER TO MONITOR FOR HEART FAILURE EXACERBATION AND RECORD PATIENT REPORTED WEIGHT, AND NOTIFY THE PHYSICIAN AND/OR THE RN CLINICAL GENERAL LABORER FOR PHYSICIAN NOTIFICATION OF HF EXACERBATION (2LB WEIGHT GAIN IN 1 DAY, 5LBS IN A WEEK OR 5 LBS OVER BASELINE; INCREASED SOB, EDEMA, NEEDING MORE PILLOWS AT NIGHT, CRACKLES IN BASIS OF THE LUNGS OR PMI SHIFT)] Future Scheduled Test PT TO ASSE SS / WILD LIFE MANAGER TO MONITOR CARDIO/RESPIRATORY SYSTEM; AND NOTIFY THE PHYSICIAN AND/OR THE RN CLINICAL GENERAL LABORER FOR PHYSICIAN NOTIFICATION FOR EARLY SIGNS AND SYMPTOMS OF EXACERBATION OR DETERIORATION. [code = PT TO ASSESS / WILD LIFE MANAGER TO MONITOR CARDIO/RESPIRATORY SYSTEM; AND NOTIFY THE PHYSICIAN AND/OR THE RN CLINICAL GENERAL LABORER FOR PHYSICIAN NOTIFICATION FOR EARLY SIGNS AND SYMPTOMS OF EXACERBATION OR DETERIORATION.] Future Scheduled Test PT / WILD LIFE MANAGER T O MONITOR AND EDUCATE ON OXYGEN SATURATION DURING ADLS/IADLS, NOTIFY PHYSICIAN AND/OR THE RN CLINICAL GENERAL LABORER FOR PHYSICIAN NOTIFICATION AND IF O2 SATS BELOW PHYSICIAN ORDERED PARAMETERS AFTER 10 MIN OF REST [code = PT / WILD LIFE MANAGER TO MONITOR AND EDUCATE ON OXYGEN SATURATION DURING ADLS/IADLS, NOTIFY PHYSICIAN AND/OR THE RN CLINICAL GENERAL LABORER FOR PHYSICIAN NOTIFICATION AND IF O2 SATS BELOW PHYSICIAN ORDERED PARAMETERS AFTER 10 MIN OF REST] Future Scheduled Test PT / WILD LIFE MANAGER M AY EDUCATE ON PAIN MANAGEMENT CLINICALLY INDICATED, INCLUDING NON-PHARMACOLOGICAL PAIN REDUCTION TECHNIQUES [code = PT / WILD LIFE MANAGER MAY EDUCATE ON PAIN MANAGEMENT CLINICALLY INDICATED, INCLUDING NON-PHARMACOLOGICAL PAIN REDUCTION TECHNIQUES ] Future Scheduled Test PT / WILD LIFE MANAGER T O INSTRUCT PATIENT/CAREGIVER ON RISK FOR HOSPITALIZATION/EMERGENCY ROOM VISITS, TEACH SIGNS AND SYMPTOMS THAT PUT PATIENT AT RISK, WHEN TO NOTIFY NURSE/PHYSICIAN OF COMPLICATIONS/DECLINE, AND WHEN TO CALL 911. [code = PT / WILD LIFE MANAGER TO INSTRUCT PATIENT/CAREGIVER ON RISK FOR HOSPITALIZATION/EMERGENCY [...] End Date/Time Encounter Type Admission Type Attending [facility] Care Department Encounter ID Discharge Date Discharge Status Discharge Condition Discharge Reason Percent Goals Met 2024-01-01 00:00:00 2024-07-29 00:00:00 Outpatient [facility] MARY ELLEN NAYAK [facility] [id number] 2024-07-29 00:00:00 DISCHARGE TO HOME OR SELF CARE INDEPENDEN T IN THE [facility] OR [facility]- GOALS MET 75.00
[2024-09-02 13:33] VITALS: PULSE 85; O2SAT 97
== END 2024-09-02 09:49 | disposition home or self-care (01) ==
PROVIDERS: PCP Internal Medicine; Visit Provider Internal Medicine Pulmonary Disease
DX: J84.9 Interstitial pulmonary disease, unspecified (principal); M34.1 CR(E)ST syndrome
CPT/HCPCS: 94618; 99214; G2211

== ENCOUNTER → 2024-09-02 09:07 | Outpatient (BNVA) | payer MEDICARE, OTHER, SELFPAY | PROVIDERS: PCP Internal Medicine; Visit Provider Internal Medicine Pulmonary Disease | DX: J84.9 Interstitial pulmonary disease, unspecified (principal); M34.1 CR(E)ST syndrome | CPT/HCPCS: 94618; 99212 ==

== ENCOUNTER 2024-09-15 13:58 | Outpatient (AMB) | payer MEDICARE, OTHER, SELFPAY ==
--- NOTE | 2024-09-15 13:59 | MHC.PC.OV ---
Intake Visit Reasons: f/u MRI [phone] Intake Note: Patient is here to follow up on MRI Results. Button Cutter Required: No Fire Sprinkler Installer: Not Required per policy Accompanied by: Self / Same As Patient Allergies codeine Allergy (Severe, Verified 09/15/24 14:00) felt like going to propranolol Allergy (Intermediate, Verified 09/15/24 14:00) dizziness Seasonal Allergies Allergy (Intermediate, Verified 09/15/24 14:00) Sneezing, vertigo Tobacco use date assessed: 05/25/24 Fall risk assessment: No Falls in past year Last assessed Fall Risk: 09/15/24 Dental Screening Dental Screen Date: 09/15/24 Did you have a dental visit in the last 12 months?: Yes Did you have a dental problem in the last 6 months where you did not have access to dental care?: No Was dental information given to patient?: Patient has dentist HPI f/u MRI [phone] HPI Details 73-year-old female wishes to discuss her medical health via tele health. She recently had an MRI and would like to review the results. She is feeling overwhelmed after seeing multiple specialists for her various clinical conditions. Clinically, patient continues to have shortness of breath on moderate exertion. As per her recent pulmonary visit at [facility], she is trying to taper the prednisone and increase the dosage on azathioprine. She is skeptical that her breathing will improve by following this regimen. Continues to have lower back pain and discomfort while sitting. With the varied medical conditions, she is feeling overwhelmed. She is also concerned about the difference of opinion amongst her various specialists. The collections representative wants her to take vitamin D3 and her laboratory equipment installer ([facility])is discouraging her from taking the same medication. She also does not believe that tapering off the prednisone will be successful in her case. [facility] Medical History (Updated 09/02/24 @ 09:49 by Pancho Monson MD) Pacemaker Lower thoracic back pain Bifascicular block Supplemental oxygen dependent CREST (calcinosis, Raynaud's phenomenon, esophageal dysfunction, sclerodactyly, telangiectasia) Dyspnea on exertion Pericardial effusion Hypothyroid Enlarged thyroid Hypertension Multinodular thyroid Telangiectasia Dysphagia Surgical History S/P placement of cardiac pacemaker S/P cardiac cath S/P tooth extraction Hx of colonoscopy H/O breast biopsy Family History Father Heart disease Sister Ovarian cancer Brother Heart attack Stroke Mother Thyroid disease Brother Asthma Social History Household Members: Spouse Housing: House Do you presently have visiting nurse or other home services: Yes ([facility] ,[facility]) Alcohol intake: never Patient Tobacco Use Status: Former Tobacco user Tobacco use type: Cigarette Years Smoked: 20 +/- e-Cigarette/Vaping Use: Never Used Second Hand Smoke Exposure: Yes Advance Directives Date on File: 02/13/24 service: No Current occupational status: retired 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 1. Little interest or pleasure in doing things: not at all 2. Feeling down, depressed, or hopeless: not at all 3. Trouble falling or staying asleep, or sleeping too much: not at all 4. Feeling tired or having little energy: not at all 5. Poor appetite or overeating: not at all 6. Feeling bad about yourself - or that you are a failure or have let yourself or your family down: not at all 7. Trouble concentrating on things, such as reading the newspaper or watching television: not at all 8. Moving or speaking so slowly that other people could have noticed. Or the opposite - being so fidgety or restless that you have been moving around a lot more than usual: not at all 9. Thoughts that you would be better off or of hurting yourself in some way: not at all Total score: 0 Depression Screening Interpretation: Negative Depression Screening Done: Yes Source: Developed by Drs. Carson Quiles, Malinda Morales, Tang Awad and colleagues, with an educational kevin from [employer]. Thrive Questionnaire Date Thrive assessed: 09/15/24 I am a: Patient What is your living situation today?: I have a steady place to live Within the past 12 months, did the food you bought not last and you didn't have the money to get more?: Never true Within the past 12 months, did you worry whether your food would run out before you got money to buy more?: Never true Do you have trouble paying for medicines?: No Do you have trouble getting transportation to medical appointments?: No Do you have trouble paying your heating and electricity bill?: No Do you have trouble taking care of your child, family member or friend?: No Do you have trouble with day-to-day activities such as bathing, preparing meals, shopping, managing finances, etc.?: No Are you currently unemployed and looking for a job?: No Are you interested in more education?: No Please select the resources that you would like help with: None Currently or been in a relationship where the following occur: No concerns reported THRIVE Score: 0 AUDIT C Alcohol Use Questionnaire (AUDIT-C) 1. How often do you have a drink containing alcohol?: Never Total Score: 0 DEANN-7 AMB Questionnaire DEANN-7 Date DEANN - 7 assessed: 09/15/24 Feeling nervous, anxious, or on edge: 0 = Not at all Not being able to stop or control worryin = Not at all Worrying too much about different things: 0 = Not at all Trouble relaxin = Not at all Being so restless that it is hard to sit still: 0 = Not at all Becoming easily annoyed or irritable: 0 = Not at all Feeling afraid as if something awful might happen: 0 = Not at all Total DEANN-7 score (0-4 normal; 5-9 mild; 10-14 moderate; 15-21 severe): 0 Source: Developed by Drs. Carson Quiles, Malinda Morales, Tang Awad and colleagues, with an educational kevin from [employer]. Physical exam (Primary Care) Tobacco/Smoking Status: Tobacco use Status Tobacco use date assessed 05/25/24 09/15/24 14:03 Patient Tobacco Use Status Former Tobacco user 09/15/24 14:03 Tobacco use type Cigarette 09/15/24 14:03 e-Cigarette/Vaping Use Never Used 09/15/24 14:03 PHQ-9: PHQ-9 Score PHQ-9: Total score 0 09/15/24 14:03 Depression Screening Interpretation: Negative Thrive Assessment: Date of Thrive Assessment Date Thrive assessed 09/15/24 09/15/24 14:03 Currently or been in a relationship where the following occur: No concerns reported Telehealth Telehealth Telehealth Platform: [facility] Location of provider rendering services: practice address Location of patient: address on file Patient Identification confirmed using: Name, : Yes Telehealth method: voice only Patient verbally consented to treatment: Yes Patient verbally consented to billing insurance company: Yes Patient informed of any privacy concerns related to visit: Yes Minutes spent on Phone/Video with Pt.: 25 Coding Level of Care Code Tele Est Pt Level 4 (03601) Complex EM visit Add On G2211 Diagnoses Spondylosis of lumbar region without myelopathy or radiculopathy M47.816 Assessment & Plan Assessment & Plan (1) Spondylosis of lumbar region without myelopathy or radiculopathy: Code(s): M47.816 - Spondylosis without myelopathy or radiculopathy, lumbar region Category: Medical Plan: A consult for the spine center has been requested. Plan A lengthy discussion on her various issues. On her recent visit to the plate hanger, elevated calcium was noted in her blood work and patient was referred to endocrinology for evaluation of parathyroid status. As part of the workup patient was advised to take vitamin-D. She later saw a laboratory equipment installer at [facility] who specializes in pulmonary hypertension. She was diagnosed to have pulmonary hypertension and started on azathioprine and instructed to reduce the prednisone. 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 Plan: I will have a phone conversation with her specialist at [facility] to determine if she can continue vitamin-D as instructed by her collections representative. I will inform him about the patient's reluctance to reduce the prednisone and increase the azathioprine. A referral to the spine center has been made to see if she could be a surgical candidate. Orders: Referrals Neuro Spine Referral M47.816 - Spondylosis without myelopathy or radiculopathy, lumbar region
--- OUTSIDE RECORDS SUMMARY | 2024-09-15 18:24 | XMS_ITS | Continuity of Care Document ---
Author Organization [facility] Address [address] [place] [address] [address] [place], [place] Phone [phone] Care Team Providers Care Battery Filler Name Role Phone Dayan Barragan MD Care Team Information Rec eiver Unavailable Social History Type Date Description Comments Sex Unknown
--- OUTSIDE RECORDS SUMMARY | 2024-09-15 18:24 | XMS_ITS | Clinical Summary ---
Author Organization Unknown Care Team Providers Care Mainframe Programmer Analyst Name Role Phone REJI MARION, HELEN Unavailable Unavailab debbie VILLALOBOS LPN, BERKLEY Unavailable Unavailable [facility], ROBERT Unavailable Unavailable STEVEN RN, MARTINE Unavailable Unavailable FRANCISCO JAVIER PT, MARY ELLEN Unavailable Unavailable Payers Payer Name Policy Type Policy Number Effective Date Expira tion Date MEDICARE.NGS.PDGM [id number] Problems Condition Name Condition Details Condition Category [...] ULAR BLOCK, COMPLETE Active 08-31 00:00: 00 GROUP HOME (CURRENT) USE OF INHALED STEROIDS Active 08-31 00:00: 00 PERSONAL HISTORY OF COVID-19 Active 12-31 00:00: 00 PRESENCE OF CARDIAC PACEMAKER Active 12-31 00:00: 00 GROUP HOME (CURRENT) USE OF SYSTEMIC STEROIDS Active [...] 12-07 00:00: 00 12-31 00:00 :00 No [id number] Per instruc tions Per instructio ns (route: oral) Med Classific ation: Endocrine hydrochloro thiazide 25 mg tablet 11-26 00:00: 00 02-14 23:59 :00 No [id number] LOWERS BLOOD PRESSURE 1 tablet DAILY 1 tablet DAILY (route: oral) Med Classific ation: Cardiovas cular Therapy Agents levothyroxi ne 75 mcg capsule 11-25 00:00: 00 02-24 23:59 :00 No [id number] HYPOTHYROID 1 capsule DAILY 1 capsule DAILY (route: oral) Med Classific ation: Endocrine acetaminoph en 500 mg tablet 12-31 00:00: 00 Yes [id number] PAIN 2 tablet 2 TIMES DAILY 2 tablet 2 TIMES DAILY (route: oral) Med Classific ation: Analgesic , Anti-infl ammatory or Antipyret ic albuterol sulfate HFA 90 mcg/actuati on aerosol inhaler 12-31 00:00: 00 Yes [id number] SOB/WHEEZIN G 2 puff EVERY 6 HOURS 2 puff EVERY 6 HOURS (route: inhalation ) Med Classific ation: Respirato ry Therapy Agents atorvastati n 40 mg tablet 12-31 00:00: 00 Yes [id number] LOWERS CHOLESTEROL 1 tablet BEDTIME 1 tablet BEDTIME (route: oral) Med Classific ation: Cardiovas cular Therapy Agents cyanocobala min (vit B-12) 1,000 mcg tablet 12-31 00:00: 00 Yes [id number] SUPPLEMENT 1 tablet DAILY 1 tablet DAILY (route: oral) Med Classific ation: Electroly te Balance-N utritiona l Products ibuprofen 600 mg tablet 12-31 00:00: 00 Yes [id number] PAIN 1 tablet 3 TIMES DAILY 1 tablet 3 TIMES DAILY (route: oral) Med Classific ation: Analgesic , Anti-infl ammatory or Antipyret ic meclizine 25 mg tablet 12-31 00:00: 00 02-24 23:59 :00 No [id number] DIZZINESS 1 tablet 3 TIMES DAILY 1 tablet 3 TIMES DAILY (route: oral) Med Classific ation: Gastroint estinal Therapy Agents metoprolol succinate ER 25 mg tablet,exte nded release 24 hr 12-31 00:00: 00 02-28 23:59 :00 No [id number] LOWERS BLOOD PRESSURE 1 tablet DAILY 1 tablet DAILY (route: oral) Med Classific ation: Cardiovas cular Therapy Agents naproxen sodium 220 mg capsule 12-31 00:00: 00 04-27 23:59 :00 No [id number] PAIN MANAGEMENT 1 capsule DAILY 1 capsule DAILY (route: oral) Med Classific ation: Analgesic , Anti-infl ammatory or Antipyret ic prednisone 10 mg tablet 12-31 00:00: 00 04-27 23:59 :00 No [id number] RESPIRATORY SX Per instruc tions DAILY Per instructio ns DAILY (route: oral) Med Classific ation: Endocrine furosemide 20 mg tablet 02-14 00:00: 00 02-18 23:59 :00 No [id number] FLUID RETENTION 1 tablet DAILY 1 tablet DAILY (route: oral) Med Classific ation: Cardiovas cular Therapy Agents Lasix 20 mg tablet 02-15 00:00: 00 02-18 23:59 :00 No [id number] SOB 3 tablet DAILY 3 tablet DAILY (route: oral) Alternate Route: BY MOUTH. Med Classific ation: Cardiovas cular Therapy Agents Lasix 20 mg tablet 02-18 00:00: 00 04-19 23:59 :00 No [id number] SOB 2 tablet DAILY 2 tablet DAILY (route: oral) Alternate Route: BY MOUTH. Med Classific ation: Cardiovas cular Therapy Agents levothyroxi ne 88 mcg tablet 03-01 00:00: 00 Yes [id number] HYPOTHYROID 1 tablet DAILY 1 tablet DAILY (route: oral) Med Classific ation: Endocrine meclizine 25 mg tablet 03-01 00:00: 00 Yes [id number] DIZZINESS 1 tablet 3 TIMES DAILY 1 tablet 3 TIMES DAILY (route: oral) Med Classific ation: Gastroint estinal Therapy Agents metoprolol succinate ER 25 mg tablet,exte nded release 24 hr 02-28 00:00: 00 03-22 23:59 :00 No [id number] LOWERS BLOOD PRESSURE 1 tablet 2 TIMES DAILY 1 tablet 2 TIMES DAILY (route: oral) Med Classific ation: Cardiovas cular Therapy Agents metoprolol succinate ER 50 mg tablet,exte nded release 24 hr 03-22 00:00: 00 04-19 23:59 :00 No [id number] HR 1 tablet 2 TIMES DAILY 1 tablet 2 TIMES DAILY (route: oral) Alternate Route: BY MOUTH. Med Classific ation: Cardiovas cular Therapy Agents omeprazole 40 mg capsule,del ayed release 03-22 00:00: 00 Yes [id number] HEARTBURN 1 capsule DAILY 1 capsule DAILY (route: oral) Alternate Route: BY MOUTH. Med Classific ation: Gastroint estinal Therapy Agents cyclobenzap rine 10 mg tablet 04-12 00:00: 00 05-19 23:59 :00 No [id number] PAIN 1 tablet DAILY 1 tablet DAILY (route: oral) Alternate Route: BY MOUTH. Med Classific ation: Locomotor System meloxicam 15 mg tablet 04-12 00:00: 00 06-01 23:59 :00 No [id number] PAIN 1 tablet DAILY 1 tablet DAILY (route: oral) Alternate Route: BY MOUTH. Med Classific ation: Analgesic , Anti-infl ammatory or Antipyret ic gabapentin 300 mg capsule 04-19 00:00: 00 05-19 23:59 :00 No [id number] PAIN MANAGEMENT 1 capsule BEDTIME 1 capsule BEDTIME (route: oral) Med Classific ation: Central Nervous System Agents furosemide 20 mg tablet 8 00:00: 00 Yes [id number] FLUID RETENTION 3 tablet DAILY 3 tablet DAILY (route: oral) Med Classific ation: Cardiovas cular Therapy Agents metoprolol succinate ER 25 mg tablet,exte nded release 24 hr 8 00:00: 00 06-01 23:59 :00 No [id number] AFIB 1 tablet EVERY PM 1 tablet EVERY PM (route: oral) Med Classific ation: Cardiovas cular Therapy Agents metoprolol succinate ER 50 mg tablet,exte nded release 24 hr 04-19 00:00: 00 06-01 23:59 :00 No [id number] AFIB 1 tablet DAILY 1 tablet DAILY (route: oral) Med Classific ation: Cardiovas cular Therapy Agents loratadine 10 mg capsule 04-30 00:00: 00 Yes [id number] ALLERGIES 1 capsule DAILY 1 capsule DAILY (route: oral) Med Classific ation: Respirato ry Therapy Agents magnesium 200 mg tablet 04-30 00:00: 00 Yes [id number] SUPPLEMENT 1 tablet DAILY 1 tablet DAILY (route: oral) Med Classific ation: Electroly te Balance-N utritiona l Products prednisone 10 mg tablet 04-30 00:00: 00 06-01 23:59 :00 No [id number] RESPIRATORY 1 tablet DAILY 1 tablet DAILY (route: oral) Med Classific ation: Endocrine tramadol 50 mg tablet 05-19 00:00: 00 Yes [id number] PAIN 1 tablet 2 TIMES DAILY 1 tablet 2 TIMES DAILY (route: oral) Alternate Route: BY MOUTH. Med Classific ation: Analgesic , Anti-infl ammatory or Antipyret ic metoprolol succinate ER 50 mg tablet,exte nded release 24 hr 2023-08 00:00: 00 Yes [id number] A-FIB 1 tablet 2 TIMES DAILY 1 tablet 2 TIMES DAILY (route: oral) Med Classific ation: Cardiovas cular Therapy Agents prednisone 10 mg tablet 2023-08 0-15 00:00: 00 06-22 23:59 :00 No [id number] PAIN 3 tablet DAILY 3 tablet DAILY (route: oral) Alternate Route: BY MOUTH. Med Classific ation: Endocrine prednisone 10 mg tablet 2023-08 00:00: 00 Yes [id number] INFLAMMATIO N 1 tablet DAILY 1 tablet DAILY (route: oral) Alternate Route: BY MOUTH. Med Classific ation: Endocrine prednisone 20 mg tablet 2023-08 00:00: 00 06-29 23:59 :00 No [id number] INFLAMMATIO N 1 tablet DAILY 1 tablet [...] TO EVALUATE, OBSERVE / ASSESS, AND MONITOR, CAREGIVERS NON MEDICAL TO OBSERVE AND MONITOR, PROVIDE SKILLED THERAPEUTIC INTERVENTION, ACTIVITY, EDUCATION, AND TRAINING TO ADDRESS; [code = AGENCY MAY PERFORM A RESUMPTION OF CARE VISIT FOLLOWING ANY HOSPITAL ADMISSION. PT TO EVALUATE, OBSERVE / ASSESS, AND MONITOR, CAREGIVERS NON MEDICAL TO OBSERVE AND MONITOR, PROVIDE SKILLED THERAPEUTIC INTERVENTION, ACTIVITY, EDUCATION, AND TRAINING TO ADDRESS;] Future Scheduled Test PT/CAREGIVERS NON MEDICAL TO PROVIDE STAIR TRAINING [code = PT/CAREGIVERS NON MEDICAL TO PROVIDE STAIR TRAINING] Future Scheduled Test PT/CAREGIVERS NON MEDICAL TO PROVIDE GAIT TRAINING FOR IMPROVED MOBILITY AND /OR TO NORMALIZE GAIT PATTERN [code = PT/CAREGIVERS NON MEDICAL TO PROVIDE GAIT TRAINING FOR IMPROVED MOBILITY AND /OR TO NORMALIZE GAIT PATTERN] Future Scheduled Test THERAPEUTI C EXERCISES AND ESTABLISHING A HOME EXERCISE PROGRAM (PT/CAREGIVERS NON MEDICAL) [code = THERAPEUTIC EXERCISES AND ESTABLISHING A HOME EXERCISE PROGRAM (PT/CAREGIVERS NON MEDICAL)] Future Scheduled Test NEUROMUSCU LAR RE-EDUCATION / BALANCE / POSTURAL CONTROL (PT) [code = NEUROMUSCULAR RE-EDUCATION / BALANCE / POSTURAL CONTROL (PT)] Future Scheduled Test PT/CAREGIVERS NON MEDICAL TO IDENTIFY FALL RISK FACTORS; EDUCATE THE PATIENT/CAREGIVER ON WAYS TO REDUCE FALL RISK FACTORS AND ESTABLISH HOME EXERCISE PROGRAM TO MINIMIZE FALL RISK. MAY TEACH THE PATIENT FLOOR RECOVERY WHEN CLINICALLY APPROPRIATE [code = PT/CAREGIVERS NON MEDICAL TO IDENTIFY FALL RISK FACTORS; EDUCATE THE PATIENT/CAREGIVER ON WAYS TO REDUCE FALL RISK FACTORS AND ESTABLISH HOME EXERCISE PROGRAM TO MINIMIZE FALL RISK. MAY TEACH THE PATIENT FLOOR RECOVERY WHEN CLINICALLY APPROPRIATE] Future Scheduled Test PT TO ASSE SS / CAREGIVERS NON MEDICAL TO MONITOR FOR HEART FAILURE EXACERBATION AND RECORD PATIENT REPORTED WEIGHT, AND NOTIFY THE PHYSICIAN AND/OR THE RN CLINICAL MANAGER FINE FOR PHYSICIAN NOTIFICATION OF HF EXACERBATION (2LB WEIGHT GAIN IN 1 DAY, 5LBS IN A WEEK OR 5 LBS OVER BASELINE; INCREASED SOB, EDEMA, NEEDING MORE PILLOWS AT NIGHT, CRACKLES IN BASIS OF THE LUNGS OR PMI SHIFT) [code = PT TO ASSESS / CAREGIVERS NON MEDICAL TO MONITOR FOR HEART FAILURE EXACERBATION AND RECORD PATIENT REPORTED WEIGHT, AND NOTIFY THE PHYSICIAN AND/OR THE RN CLINICAL MANAGER FINE FOR PHYSICIAN NOTIFICATION OF HF EXACERBATION (2LB WEIGHT GAIN IN 1 DAY, 5LBS IN A WEEK OR 5 LBS OVER BASELINE; INCREASED SOB, EDEMA, NEEDING MORE PILLOWS AT NIGHT, CRACKLES IN BASIS OF THE LUNGS OR PMI SHIFT)] Future Scheduled Test PT TO ASSE SS / CAREGIVERS NON MEDICAL TO MONITOR CARDIO/RESPIRATORY SYSTEM; AND NOTIFY THE PHYSICIAN AND/OR THE RN CLINICAL MANAGER FINE FOR PHYSICIAN NOTIFICATION FOR EARLY SIGNS AND SYMPTOMS OF EXACERBATION OR DETERIORATION. [code = PT TO ASSESS / CAREGIVERS NON MEDICAL TO MONITOR CARDIO/RESPIRATORY SYSTEM; AND NOTIFY THE PHYSICIAN AND/OR THE RN CLINICAL MANAGER FINE FOR PHYSICIAN NOTIFICATION FOR EARLY SIGNS AND SYMPTOMS OF EXACERBATION OR DETERIORATION.] Future Scheduled Test PT / CAREGIVERS NON MEDICAL T O MONITOR AND EDUCATE ON OXYGEN SATURATION DURING ADLS/IADLS, NOTIFY PHYSICIAN AND/OR THE RN CLINICAL MANAGER FINE FOR PHYSICIAN NOTIFICATION AND IF O2 SATS BELOW PHYSICIAN ORDERED PARAMETERS AFTER 10 MIN OF REST [code = PT / CAREGIVERS NON MEDICAL TO MONITOR AND EDUCATE ON OXYGEN SATURATION DURING ADLS/IADLS, NOTIFY PHYSICIAN AND/OR THE RN CLINICAL MANAGER FINE FOR PHYSICIAN NOTIFICATION AND IF O2 SATS BELOW PHYSICIAN ORDERED PARAMETERS AFTER 10 MIN OF REST] Future Scheduled Test PT / CAREGIVERS NON MEDICAL M AY EDUCATE ON PAIN MANAGEMENT CLINICALLY INDICATED, INCLUDING NON-PHARMACOLOGICAL PAIN REDUCTION TECHNIQUES [code = PT / CAREGIVERS NON MEDICAL MAY EDUCATE ON PAIN MANAGEMENT CLINICALLY INDICATED, INCLUDING NON-PHARMACOLOGICAL PAIN REDUCTION TECHNIQUES ] Future Scheduled Test PT / CAREGIVERS NON MEDICAL T O INSTRUCT PATIENT/CAREGIVER ON RISK FOR HOSPITALIZATION/EMERGENCY ROOM VISITS, TEACH SIGNS AND SYMPTOMS THAT PUT PATIENT AT RISK, WHEN TO NOTIFY NURSE/PHYSICIAN OF COMPLICATIONS/DECLINE, AND WHEN TO CALL 911. [code = PT / CAREGIVERS NON MEDICAL TO INSTRUCT PATIENT/CAREGIVER ON RISK FOR HOSPITALIZATION/EMERGENCY [...] End Date/Time Encounter Type Admission Type [facility] Department Encounter ID Discharge Date Discharge Status Discharge Condition Discharge Reason Percent Goals Met 2024-01-01 00:00:00 2024-07-29 00:00:00 Outpatient [facility] MARY ELLEN NAYAK [facility] [id number] 2024-07-29 00:00:00 DISCHARGE TO HOME OR SELF CARE INDEPENDEN T IN THE [facility] OR [facility]- GOALS MET 75.00
--- OUTSIDE RECORDS SUMMARY | 2024-09-15 18:24 | XMS_ITS | Clinical Summary ---
Author Organization Unknown Care Team Providers Care Parachute Marker Name Role Phone REJI MARION, HELEN Unavailable Unavailab debbie VILLALOBOS LPN, BERKLEY Unavailable Unavailable JUNIOR ELECTRICAL CONTROLS DESIGNER, ROBERT Unavailable Unavailable STEVEN RN, MARTINE Unavailable Unavailable FRANCISCO JAVIER PT, MARY ELLEN Unavailable Unavailable Payers Payer Name Policy Type Policy Number Effective Date Expira tion Date MEDICARE.NGS.PDGM [id number] Problems Condition Name Condition Details Condition Category [...] ULAR BLOCK, COMPLETE Active 08-31 00:00: 00 CUSTODIAL (CURRENT) USE OF INHALED STEROIDS Active 08-31 00:00: 00 PERSONAL HISTORY OF COVID-19 Active 12-31 00:00: 00 PRESENCE OF CARDIAC PACEMAKER Active 12-31 00:00: 00 CUSTODIAL (CURRENT) USE OF SYSTEMIC STEROIDS Active 08-31 [...] 12-07 00:00: 00 12-31 00:00 :00 No [id number] Per instruc tions Per instructio ns (route: oral) Med Classific ation: Endocrine hydrochloro thiazide 25 mg tablet 11-26 00:00: 00 02-14 23:59 :00 No [id number] LOWERS BLOOD PRESSURE 1 tablet DAILY 1 tablet DAILY (route: oral) Med Classific ation: Cardiovas cular Therapy Agents levothyroxi ne 75 mcg capsule 11-25 00:00: 00 02-24 23:59 :00 No [id number] HYPOTHYROID 1 capsule DAILY 1 capsule DAILY (route: oral) Med Classific ation: Endocrine acetaminoph en 500 mg tablet 12-31 00:00: 00 Yes [id number] PAIN 2 tablet 2 TIMES DAILY 2 tablet 2 TIMES DAILY (route: oral) Med Classific ation: Analgesic , Anti-infl ammatory or Antipyret ic albuterol sulfate HFA 90 mcg/actuati on aerosol inhaler 12-31 00:00: 00 Yes [id number] SOB/WHEEZIN G 2 puff EVERY 6 HOURS 2 puff EVERY 6 HOURS (route: inhalation ) Med Classific ation: Respirato ry Therapy Agents atorvastati n 40 mg tablet 12-31 00:00: 00 Yes [id number] LOWERS CHOLESTEROL 1 tablet BEDTIME 1 tablet BEDTIME (route: oral) Med Classific ation: Cardiovas cular Therapy Agents cyanocobala min (vit B-12) 1,000 mcg tablet 12-31 00:00: 00 Yes [id number] SUPPLEMENT 1 tablet DAILY 1 tablet DAILY (route: oral) Med Classific ation: Electroly te Balance-N utritiona l Products ibuprofen 600 mg tablet 12-31 00:00: 00 Yes [id number] PAIN 1 tablet 3 TIMES DAILY 1 tablet 3 TIMES DAILY (route: oral) Med Classific ation: Analgesic , Anti-infl ammatory or Antipyret ic meclizine 25 mg tablet 12-31 00:00: 00 02-24 23:59 :00 No [id number] DIZZINESS 1 tablet 3 TIMES DAILY 1 tablet 3 TIMES DAILY (route: oral) Med Classific ation: Gastroint estinal Therapy Agents metoprolol succinate ER 25 mg tablet,exte nded release 24 hr 12-31 00:00: 00 02-28 23:59 :00 No [id number] LOWERS BLOOD PRESSURE 1 tablet DAILY 1 tablet DAILY (route: oral) Med Classific ation: Cardiovas cular Therapy Agents naproxen sodium 220 mg capsule 12-31 00:00: 00 04-27 23:59 :00 No [id number] PAIN MANAGEMENT 1 capsule DAILY 1 capsule DAILY (route: oral) Med Classific ation: Analgesic , Anti-infl ammatory or Antipyret ic prednisone 10 mg tablet 12-31 00:00: 00 04-27 23:59 :00 No [id number] RESPIRATORY SX Per instruc tions DAILY Per instructio ns DAILY (route: oral) Med Classific ation: Endocrine furosemide 20 mg tablet 02-14 00:00: 00 02-18 23:59 :00 No [id number] FLUID RETENTION 1 tablet DAILY 1 tablet DAILY (route: oral) Med Classific ation: Cardiovas cular Therapy Agents Lasix 20 mg tablet 02-15 00:00: 00 02-18 23:59 :00 No [id number] SOB 3 tablet DAILY 3 tablet DAILY (route: oral) Alternate Route: BY MOUTH. Med Classific ation: Cardiovas cular Therapy Agents Lasix 20 mg tablet 02-18 00:00: 00 04-19 23:59 :00 No [id number] SOB 2 tablet DAILY 2 tablet DAILY (route: oral) Alternate Route: BY MOUTH. Med Classific ation: Cardiovas cular Therapy Agents levothyroxi ne 88 mcg tablet 03-01 00:00: 00 Yes [id number] HYPOTHYROID 1 tablet DAILY 1 tablet DAILY (route: oral) Med Classific ation: Endocrine meclizine 25 mg tablet 03-01 00:00: 00 Yes [id number] DIZZINESS 1 tablet 3 TIMES DAILY 1 tablet 3 TIMES DAILY (route: oral) Med Classific ation: Gastroint estinal Therapy Agents metoprolol succinate ER 25 mg tablet,exte nded release 24 hr 02-28 00:00: 00 03-22 23:59 :00 No [id number] LOWERS BLOOD PRESSURE 1 tablet 2 TIMES DAILY 1 tablet 2 TIMES DAILY (route: oral) Med Classific ation: Cardiovas cular Therapy Agents metoprolol succinate ER 50 mg tablet,exte nded release 24 hr 03-22 00:00: 00 04-19 23:59 :00 No [id number] HR 1 tablet 2 TIMES DAILY 1 tablet 2 TIMES DAILY (route: oral) Alternate Route: BY MOUTH. Med Classific ation: Cardiovas cular Therapy Agents omeprazole 40 mg capsule,del ayed release 03-22 00:00: 00 Yes [id number] HEARTBURN 1 capsule DAILY 1 capsule DAILY (route: oral) Alternate Route: BY MOUTH. Med Classific ation: Gastroint estinal Therapy Agents cyclobenzap rine 10 mg tablet 04-12 00:00: 00 05-19 23:59 :00 No [id number] PAIN 1 tablet DAILY 1 tablet DAILY (route: oral) Alternate Route: BY MOUTH. Med Classific ation: Locomotor System meloxicam 15 mg tablet 04-12 00:00: 00 06-01 23:59 :00 No [id number] PAIN 1 tablet DAILY 1 tablet DAILY (route: oral) Alternate Route: BY MOUTH. Med Classific ation: Analgesic , Anti-infl ammatory or Antipyret ic gabapentin 300 mg capsule 04-19 00:00: 00 05-19 23:59 :00 No [id number] PAIN MANAGEMENT 1 capsule BEDTIME 1 capsule BEDTIME (route: oral) Med Classific ation: Central Nervous System Agents furosemide 20 mg tablet 8 00:00: 00 Yes [id number] FLUID RETENTION 3 tablet DAILY 3 tablet DAILY (route: oral) Med Classific ation: Cardiovas cular Therapy Agents metoprolol succinate ER 25 mg tablet,exte nded release 24 hr 8 00:00: 00 06-01 23:59 :00 No [id number] AFIB 1 tablet EVERY PM 1 tablet EVERY PM (route: oral) Med Classific ation: Cardiovas cular Therapy Agents metoprolol succinate ER 50 mg tablet,exte nded release 24 hr 04-19 00:00: 00 06-01 23:59 :00 No [id number] AFIB 1 tablet DAILY 1 tablet DAILY (route: oral) Med Classific ation: Cardiovas cular Therapy Agents loratadine 10 mg capsule 04-30 00:00: 00 Yes [id number] ALLERGIES 1 capsule DAILY 1 capsule DAILY (route: oral) Med Classific ation: Respirato ry Therapy Agents magnesium 200 mg tablet 04-30 00:00: 00 Yes [id number] SUPPLEMENT 1 tablet DAILY 1 tablet DAILY (route: oral) Med Classific ation: Electroly te Balance-N utritiona l Products prednisone 10 mg tablet 04-30 00:00: 00 06-01 23:59 :00 No [id number] RESPIRATORY 1 tablet DAILY 1 tablet DAILY (route: oral) Med Classific ation: Endocrine tramadol 50 mg tablet 05-19 00:00: 00 Yes [id number] PAIN 1 tablet 2 TIMES DAILY 1 tablet 2 TIMES DAILY (route: oral) Alternate Route: BY MOUTH. Med Classific ation: Analgesic , Anti-infl ammatory or Antipyret ic metoprolol succinate ER 50 mg tablet,exte nded release 24 hr 2023-08 00:00: 00 Yes [id number] A-FIB 1 tablet 2 TIMES DAILY 1 tablet 2 TIMES DAILY (route: oral) Med Classific ation: Cardiovas cular Therapy Agents prednisone 10 mg tablet 2023-08 0-15 00:00: 00 06-22 23:59 :00 No [id number] PAIN 3 tablet DAILY 3 tablet DAILY (route: oral) Alternate Route: BY MOUTH. Med Classific ation: Endocrine prednisone 10 mg tablet 2023-08 00:00: 00 Yes [id number] INFLAMMATIO N 1 tablet DAILY 1 tablet DAILY (route: oral) Alternate Route: BY MOUTH. Med Classific ation: Endocrine prednisone 20 mg tablet 2023-08 00:00: 00 06-29 23:59 :00 No [id number] INFLAMMATIO N 1 tablet DAILY 1 tablet [...] TO EVALUATE, OBSERVE / ASSESS, AND MONITOR, ELECTRICAL CONTROLS DESIGNER TO OBSERVE AND MONITOR, PROVIDE SKILLED THERAPEUTIC INTERVENTION, ACTIVITY, EDUCATION, AND TRAINING TO ADDRESS; [code = AGENCY MAY PERFORM A RESUMPTION OF CARE VISIT FOLLOWING ANY HOSPITAL ADMISSION. PT TO EVALUATE, OBSERVE / ASSESS, AND MONITOR, ELECTRICAL CONTROLS DESIGNER TO OBSERVE AND MONITOR, PROVIDE SKILLED THERAPEUTIC INTERVENTION, ACTIVITY, EDUCATION, AND TRAINING TO ADDRESS;] Future Scheduled Test PT/ELECTRICAL CONTROLS DESIGNER TO PROVIDE STAIR TRAINING [code = PT/ELECTRICAL CONTROLS DESIGNER TO PROVIDE STAIR TRAINING] Future Scheduled Test PT/ELECTRICAL CONTROLS DESIGNER TO PROVIDE GAIT TRAINING FOR IMPROVED MOBILITY AND /OR TO NORMALIZE GAIT PATTERN [code = PT/ELECTRICAL CONTROLS DESIGNER TO PROVIDE GAIT TRAINING FOR IMPROVED MOBILITY AND /OR TO NORMALIZE GAIT PATTERN] Future Scheduled Test THERAPEUTI C EXERCISES AND ESTABLISHING A HOME EXERCISE PROGRAM (PT/ELECTRICAL CONTROLS DESIGNER) [code = THERAPEUTIC EXERCISES AND ESTABLISHING A HOME EXERCISE PROGRAM (PT/ELECTRICAL CONTROLS DESIGNER)] Future Scheduled Test NEUROMUSCU LAR RE-EDUCATION / BALANCE / POSTURAL CONTROL (PT) [code = NEUROMUSCULAR RE-EDUCATION / BALANCE / POSTURAL CONTROL (PT)] Future Scheduled Test PT/ELECTRICAL CONTROLS DESIGNER TO IDENTIFY FALL RISK FACTORS; EDUCATE THE PATIENT/CAREGIVER ON WAYS TO REDUCE FALL RISK FACTORS AND ESTABLISH HOME EXERCISE PROGRAM TO MINIMIZE FALL RISK. MAY TEACH THE PATIENT FLOOR RECOVERY WHEN CLINICALLY APPROPRIATE [code = PT/ELECTRICAL CONTROLS DESIGNER TO IDENTIFY FALL RISK FACTORS; EDUCATE THE PATIENT/CAREGIVER ON WAYS TO REDUCE FALL RISK FACTORS AND ESTABLISH HOME EXERCISE PROGRAM TO MINIMIZE FALL RISK. MAY TEACH THE PATIENT FLOOR RECOVERY WHEN CLINICALLY APPROPRIATE] Future Scheduled Test PT TO ASSE SS / ELECTRICAL CONTROLS DESIGNER TO MONITOR FOR HEART FAILURE EXACERBATION AND RECORD PATIENT REPORTED WEIGHT, AND NOTIFY THE PHYSICIAN AND/OR THE RN CLINICAL RADIO ELECTRICIAN FOR PHYSICIAN NOTIFICATION OF HF EXACERBATION (2LB WEIGHT GAIN IN 1 DAY, 5LBS IN A WEEK OR 5 LBS OVER BASELINE; INCREASED SOB, EDEMA, NEEDING MORE PILLOWS AT NIGHT, CRACKLES IN BASIS OF THE LUNGS OR PMI SHIFT) [code = PT TO ASSESS / ELECTRICAL CONTROLS DESIGNER TO MONITOR FOR HEART FAILURE EXACERBATION AND RECORD PATIENT REPORTED WEIGHT, AND NOTIFY THE PHYSICIAN AND/OR THE RN CLINICAL RADIO ELECTRICIAN FOR PHYSICIAN NOTIFICATION OF HF EXACERBATION (2LB WEIGHT GAIN IN 1 DAY, 5LBS IN A WEEK OR 5 LBS OVER BASELINE; INCREASED SOB, EDEMA, NEEDING MORE PILLOWS AT NIGHT, CRACKLES IN BASIS OF THE LUNGS OR PMI SHIFT)] Future Scheduled Test PT TO ASSE SS / ELECTRICAL CONTROLS DESIGNER TO MONITOR CARDIO/RESPIRATORY SYSTEM; AND NOTIFY THE PHYSICIAN AND/OR THE RN CLINICAL RADIO ELECTRICIAN FOR PHYSICIAN NOTIFICATION FOR EARLY SIGNS AND SYMPTOMS OF EXACERBATION OR DETERIORATION. [code = PT TO ASSESS / ELECTRICAL CONTROLS DESIGNER TO MONITOR CARDIO/RESPIRATORY SYSTEM; AND NOTIFY THE PHYSICIAN AND/OR THE RN CLINICAL RADIO ELECTRICIAN FOR PHYSICIAN NOTIFICATION FOR EARLY SIGNS AND SYMPTOMS OF EXACERBATION OR DETERIORATION.] Future Scheduled Test PT / ELECTRICAL CONTROLS DESIGNER T O MONITOR AND EDUCATE ON OXYGEN SATURATION DURING ADLS/IADLS, NOTIFY PHYSICIAN AND/OR THE RN CLINICAL RADIO ELECTRICIAN FOR PHYSICIAN NOTIFICATION AND IF O2 SATS BELOW PHYSICIAN ORDERED PARAMETERS AFTER 10 MIN OF REST [code = PT / ELECTRICAL CONTROLS DESIGNER TO MONITOR AND EDUCATE ON OXYGEN SATURATION DURING ADLS/IADLS, NOTIFY PHYSICIAN AND/OR THE RN CLINICAL RADIO ELECTRICIAN FOR PHYSICIAN NOTIFICATION AND IF O2 SATS BELOW PHYSICIAN ORDERED PARAMETERS AFTER 10 MIN OF REST] Future Scheduled Test PT / ELECTRICAL CONTROLS DESIGNER M AY EDUCATE ON PAIN MANAGEMENT CLINICALLY INDICATED, INCLUDING NON-PHARMACOLOGICAL PAIN REDUCTION TECHNIQUES [code = PT / ELECTRICAL CONTROLS DESIGNER MAY EDUCATE ON PAIN MANAGEMENT CLINICALLY INDICATED, INCLUDING NON-PHARMACOLOGICAL PAIN REDUCTION TECHNIQUES ] Future Scheduled Test PT / ELECTRICAL CONTROLS DESIGNER T O INSTRUCT PATIENT/CAREGIVER ON RISK FOR HOSPITALIZATION/EMERGENCY ROOM VISITS, TEACH SIGNS AND SYMPTOMS THAT PUT PATIENT AT RISK, WHEN TO NOTIFY NURSE/PHYSICIAN OF COMPLICATIONS/DECLINE, AND WHEN TO CALL 911. [code = PT / ELECTRICAL CONTROLS DESIGNER TO INSTRUCT PATIENT/CAREGIVER ON RISK FOR HOSPITALIZATION/EMERGENCY [...] End Date/Time Encounter Type Admission Type Attending [facility] Care Department Encounter ID Discharge Date Discharge Status Discharge Condition Discharge Reason Percent Goals Met 2024-01-01 00:00:00 2024-07-29 00:00:00 Outpatient [facility] MARY ELLEN NAYAK [facility] [id number] 2024-07-29 00:00:00 DISCHARGE TO HOME OR SELF CARE INDEPENDEN T IN THE [facility] OR [facility]- GOALS MET 75.00
== END 2024-09-15 14:43 | disposition home or self-care (01) ==
LOC: HO.HMCH 13:58
PROVIDERS: PCP Internal Medicine; Visit Provider Internal Medicine
DX: M47.816 Spondylosis without myelopathy or radiculopathy, lumbar region (principal)

== ENCOUNTER 2024-10-04 10:44 | Outpatient (AMB) | payer MEDICARE, OTHER, SELFPAY ==
--- NOTE | 2024-10-04 10:46 | A.OFFVIS_ITS ---
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 Patient respiratory symptoms are now controlled on prednisone 10 mg daily and Imuran 100 mg daily. Patient also seen [facility] pulmonary hypertension specialist and was put in sildenafil, though with no changes in her symptoms and no significant pulmonary hypertension noted on right heart catheterization or 2D echocardiogram. She continues on Lasix 60 mg daily. After the last office visit patient was hospitalized at [facility] for several day secondary to heart failure exacerbation treated with increased diuresis recovered to baseline. [facility] Medical History (Updated 09/02/24 @ 09:49 by Pancho Monson MD) Pacemaker Lower thoracic back pain Bifascicular block Supplemental oxygen dependent CREST (calcinosis, Raynaud's phenomenon, esophageal dysfunction, sclerodactyly, telangiectasia) Dyspnea on exertion Pericardial effusion Hypothyroid Enlarged thyroid Hypertension Multinodular thyroid Telangiectasia Dysphagia Surgical History S/P placement of cardiac pacemaker S/P cardiac cath S/P tooth extraction Hx of colonoscopy H/O breast biopsy Family History Father Heart disease Sister Ovarian cancer Brother Heart attack Stroke Mother Thyroid disease Brother Asthma Social History Household Members: Spouse Housing: House Do you presently have visiting nurse or other home services: Yes ([facility] ,[facility]) Alcohol intake: never Patient Tobacco Use Status: Former Tobacco user Tobacco use type: Cigarette Years Smoked: 20 +/- e-Cigarette/Vaping Use: Never Used Second Hand Smoke Exposure: Yes Advance Directives Date on File: 02/13/24 service: No Current occupational status: retired 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 Cognitive needs: No Hearing needs: No Vision needs: No Review of Systems Const Denies daytime sleepiness, Denies excessive sweating, Denies fatigue, Denies fever(s), Denies lethargy, Denies malaise, Denies night sweats, Denies snoring and Denies weight loss Eyes Denies blurry vision and Denies itchy eyes ENT Denies nasal congestion, Denies post nasal drip, Denies sinus pain, Denies sinus pressure and Denies other ( Thrush) Card Denies chest pain, Denies pedal edema, Denies dyspnea, Denies orthopnea and Denies paroxysmal nocturnal dyspnea Resp Denies cough, Denies hemoptysis, Denies excessive phlegm production, Denies dyspnea, Denies snoring and Denies wheezing Musc Denies myalgias, Denies arthralgias and Denies joint swelling Skin/Breast Denies rash Neuro Denies memory loss and Denies seizure-like activity Psych Denies abnormal sleep pattern, Denies anxiety and Denies memory loss Endo Denies excessive sweating, Denies fatigue and Denies heat intolerance Kenneth/Lymph Denies easy bruising Aller/Immun Denies itchy eyes, Denies seasonal rhinorrhea and Denies wheezing Physical Exam Vital Signs: BMI result Body Mass Index 31.2 Const General: no acute distress and alert Nutritional Appearance: not obese Orientation/consciousness: Other orientation findings ( oriented) HEENT Head: Yes atraumatic Eyes General: appearance normal, both eyes and all related structures Sclerae: sclerae normal EOM: EOMs intact bilaterally Neck Neck: Yes supple Lymphatic: no lymphadenopathy noted Resp Effort & Inspection: normal respiratory effort and no use of accessory muscles Auscultation: clear to auscultation bilaterally Cardio Rate: regular rate Rhythm: regular rhythm Heart sounds: no gallops, no murmurs and no rubs Skin General skin exam: other ( warm) Extrem General: No clubbing, No cyanosis and No edema Assessment & Plan Assessment & Plan (1) ILD (interstitial lung disease): Code(s): J84.9 - Interstitial pulmonary disease, unspecified Category: Medical Plan: Crest related, symptoms with reasonable control on prednisone 10 mg daily and Imuran 100. Will increase Imuran to 150mg daily and taper prednisone down to 5 mg daily. (2) Pulmonary edema: Code(s): J81.1 - Chronic pulmonary edema Category: Medical Plan: With recent exacerbation requiring IV diuresis. Continue daily diuretic currently 60 mg daily. Patient has been advised on monitoring her daily weight and let her providers know if her weight increases steadily. Coding Level of Care Code Est Pt Level 4 (71587) Diagnoses ILD (interstitial lung disease) J84.9 Pulmonary edema J81.1
[2024-10-04 10:47] VITALS: BMI 31.2
--- OUTSIDE RECORDS SUMMARY | 2024-10-04 11:34 | XMS_ITS | Continuity of Care Document ---
Author Organization [facility] Address [address] [place] [address] [address] [place], [place] Phone [phone] Care Team Providers Care Automation Controls Expert Name Role Phone Dayan Barragan MD Care Team Information Rec eiver Unavailable Social History Type Date Description Comments Sex Unknown
--- OUTSIDE RECORDS SUMMARY | 2024-10-04 11:35 | XMS_ITS | Clinical Summary ---
Author Organization [employer] Address [address] [facility] [address] [place] [address] Care Team Providers Care Car Scrubber Name Role Phone Provider, Not In System Primary Care Provider Un available Allergies Active Allergy Reactions Criticality Noted Date Comments Codeine 01/06/2020 Other reaction(s): I felt like I was going to Propranolol Dizziness 01/06/2020 Medications amLODIPine (Norvasc) 5 MG tablet 2 Active hydroCHLOROthia zide (HYDRODiuril) 25 MG tablet Take 1 tablet by mouth every other day. 2 Active Cyanocobalamin ER 1000 MCG tablet controlled-rele ase daily. 2 Active meclizine (Antivert) 25 MG tablet 2 Active predniSONE (Deltasone) 10 MG tablet Take 7.5 mg by mouth in the morning. 1.5 tabs per day = 7.5 mg 2 Active diphenhydrAMINE -acetaminophen (Tylenol PM) 25-500 MG per tablet Take 1 tablet by mouth if needed at bedtime. Active ferrous sulfate 325 (65 Fe) MG tablet Take 325 mg by mouth with breakfast. Active levothyroxine (Synthroid, Levoxyl) 75 MCG tablet TAKE 1 TABLET(75 MCG) BY MOUTH BEFORE BREAKFAST 90 tablet 3 Active albuterol 108 (90 Base) MCG/ACT inhaler Inhale 2 puffs every 6 (six) hours if needed for wheezing or shortness of breath. 4 Active metoprolol succinate XL (Toprol-XL) 25 MG 24 hr tablet Take 25 mg by mouth Once per day. 4 Active Active Problems Problem Noted Date Diagnosed Date Raynaud's disease 09/08/2022 Urethral discharge 08/28/2022 Epigastric pain 08/28/2022 Esophageal reflux 11/12/2021 Inflammatory polyarthropathy 11/12/2021 Mixed hyperlipidemia 11/12/2021 Hypertension 01/09/2020 Hypothyroidism 01/09/2020 Immunizations Name Administration Dates Next Due Influenza Injectable Quadriv alant Preservative Free IIV4 MDCK 08/26/2021 Influenza Quadrivalent Adjuvanted 06/13/2020 Influenza injectable quadriv alent preservative free 05/16/2015,10/27/2013 Influenza, High Dose Seasona l, Preservative Free 07/07/2022,07/07/2019,07/15/2018,2015 Influenza, IIV3, injectable 07/07/2022 Influenza, seasonal, injecta ble, preservative free 07/04/2014 Moderna Covid-19 Vaccine 12+ 12/07/2020,11/10/19 21 Pfizer Covid-19 Vaccine 12+ Bivalent 09/08/2022 Td (adult), unspecified 08/31/2003 Tdap 01/25/2015 Zoster, live 07/04/2014 Social History Tobacco Use Types Packs/Day Years Used Date Smoking Tobacco: Former Cigarettes Q uit: 1989 Passive Smoke Exposure: Past Smokeless Tobacco: Never Tobacco Cessation:Counseling Given: Yes Alcohol Use Standard Drinks/Week Comments Not Currently 0 (1 standard drink = 0.6 oz pur e alcohol) Housing Stability Answer Date Recorded What is your housing situation today? I have polly tripp 06/19/[address] you li ve. Do you have problems with any of the following? None of the above 06/19/2023 Food Insecurity Answer Date Recorded Within the past 12 months, y ou worried that your food would run out before you got money to buy more: Never True 06/19/2023 Within the past 12 months,th e food you bought just didn't last and you didn't have enough money to get more: Never True Transportation Answer Date Recorded In the past 12 months, has l ack of transportation kept you from medical appts, meetings, work or from getting things needed for daily living? No 06/19/2023 Utilities Answer Date Recorded In the past 12 months, has t he electric, gas, oil or water company threatened to shut off services in your home? No 06/19/2023 Depression Answer Date Recorded Patient Health Questionnaire-2 Score 0 09/08/2022 Comments No Sex and Gender Information Value Date Recorded Sex Assigned at Female 08/28/2022 1:46 PM EST Legal Sex Female 6:22 PM EDT Gender Identity Female 06/27/2022 6:22 PM EDT Sexual Orientation Straight 08/28/2022 1: 48 PM EST Last Filed Vital Signs Vital Sign Reading Time Taken Comments Blood Pressure 118/70 02/26/2023 2:55 PM EDT Pulse 62 07/07/2022 1:55 PM EST Temperature 36.7 ??C (98 ??F) 02/26/2023 2:55 PM EDT Respiratory Rate - - Oxygen Saturation 100% 07/07/2022 1:55 PM EST Inhaled Oxygen Concentration - - Weight 75 kg (165 lb 6.4 oz) 02/26/2023 2:55 PM EDT Height 160 cm (5' 3 ) 02/26/2023 2:55 PM EDT Body Mass Index 29.3 02/26/2023 2:55 PM EDT Plan of Treatment Health Maintenance Due Date Last Done Comments CT Colonography 1950 Colonoscopy 1950 FIT DNA/Cologuard 1950 Sigmoidoscopy 1950 Alcohol/Substance Use Screening 1962 Hepatitis C Screening 1968 Mammogram 1990 Pneumococcal Vaccine: 50+ Years (1 of 1 - PCV) 2000 Zoster Vaccines (2 of 3) 08/29/2014 07/04/2014 Colorectal Cancer Screening 11/21/2022 FIT 11/21/2022 11/21/2021 FOBT 11/21/2022 11/21/2021, 10/29, 01/30/2020 Depression Screening 09/08/2023 09/08/2022, 09/08/19 23 SDOH Screening 09/08/2023 09/08/2022 Tobacco Screening 02/27/2024 02/26/2023 COVID-19 Vaccine ( season) 2024 09/08/2022, 08/26/2021, 12/07/2020, Additional history exists Influenza Vaccine (#1) 2024 2, 07/07/2022, 08/26/2021, Additional history exists DTaP/Tdap/Td Vaccines (2 - Td or Tdap) 01/25/2025 01/25/2015, 08/31/2003 RSV Patients and Patients Aged 60 years or older (1 - 1-dose 75+ series) 2025 Lipid Panel 02/27/2028 02/26/2023, 10/02, 12/20/2020, Additional history exists HIB Vaccines Aged Out No longer eligi ble based on patient's age to complete this topic HPV Vaccines Aged Out No longer eligi ble based on patient's age to complete this topic Hepatitis A Vaccines Aged Out No long er eligible based on patient's age to complete this topic Hepatitis B Vaccines Aged Out No long er eligible based on patient's age to complete this topic IPV Vaccines Aged Out No longer eligi ble based on patient's age to complete this topic Meningococcal Vaccine Aged Out No daksha parth eligible based on patient's age to complete this topic RSV under 20 months Aged Out No longe r eligible based on patient's age to complete this topic Rotavirus Vaccines Aged Out No longer eligible based on patient's age to complete this topic Procedures Procedure Name Priority Date/Time Associated Diagnosis Comments LIPID PANEL, STANDARD Routine 02/26/2023 3:32 PM EDT Mixed hyperlipidemia OCCULT BLOOD, FECAL, IMMUNOASSAY Routine 11/21/2021 8:36 AM EDT FECAL IMMUNOCHEMICAL Routine 11/21/2021 from Last 3 Months or Most Recently Relevant to Health Maintenance Results * Lipid Panel, Standard (02/26/2023 3:32 PM EDT) Cholesterol, Total 124 (<200) MG/DL [facility] Triglyceride (mg/dL) in Serum/Plasma 116 (<150) MG/DL [facility] HDL Cholesterol 49 (>39) MG/DL [facility] LDL Cholesterol, Calculated 52 (0-130) MG/DL [facility] Non HDL Chol. (LDL+VLDL) 75 (<160) MG/DL [facility] Comment: Testing performed or reported by [facility], a Service of [facility], [address] [place] [id number] Leo Peres MD, [employer] Template Maker AYALA# [id number] Blood Venous blood specimen / Unknown 02/26/2023 3:32 PM EDT 02/26/2023 3:35 PM EDT Peace WARNER LAB BLOOD ORDERABLES Final Resul t Performing Organization Address [facility]/ZIP Co de Phone Number [facility] [address] [address] * FECAL OCCULT BLOOD, IMMUNOCHEMICAL (11/21/2021 8:36 AM EDT) Fecal Occult Blood, Immunochemical (FIT) NEGATIVE [facility] 11/21/2021 8:36 AM EDT Historical Provider LAB BODY FLUIDS AND STOOL S ORDERABLES Final Result Performing Organization Address City/[facility]/ZIP Co de Phone Number [facility] [address] * Fecal immunochemical (11/21/2021) Fecal Immunoassay Test (External) negative Stool Rectal contents / Unknown Historical Provider LAB BODY FLUIDS AND STOOL S ORDERABLES Final Result from Last 3 Months or Most Recently Relevant to Health Maintenance Insurance MEDICARE [facility] , [address] [place] [address] * Guarantor: Rajani Hart Account Type Relation to Patient Date of Phone Billing Address Dental Self Care Teams Car Scrubber Relationship Specialty Start Date End Date Provider, Not In System PCP - General Family Medicine 06/19/23
--- OUTSIDE RECORDS SUMMARY | 2024-10-04 11:35 | XMS_ITS | Encounter Summary ---
Author Organization [employer] Address [address] [facility] [address] [place] [address] Care Team Providers Care Residential Fee Appraiser Name Role Phone Peace Ruano Primary Care Provider Unavailab le Peace Ruano Unavailable Unavailable Provider, Not In System Primary Care Provider Un available Encounter Details Date Type Department Care Team (Late st Contact Info) Description 07/22/[address] [phone] Peace Ruano FNP Social History Tobacco Use Types Packs/Day Years Used Date Smoking Tobacco: Never Assessed Comments Unknown Sex and Gender Information Value Date Recorded Sex Assigned at Female 08/28/2022 1:46 PM EST Legal Sex Female 6:22 PM EDT Gender Identity Female 06/27/2022 6:22 PM EDT Sexual Orientation Straight 08/28/2022 1: 48 PM EST documented as of this encounter Plan of Treatment Not on file documented as of this encounter Visit Diagnoses Not on filedocumented in this encounter Care Teams Residential Fee Appraiser Relationship Specialty Start Date End Date Peace Ruano FNP PCP - General Family Medicine 06/27/22 06/18/23 Provider, Not In System PCP - General Family Medicine 06/19/23 Peace Ruano FNP Family Medicine 06/27/22 06/18/23 documented as of this encounter
--- OUTSIDE RECORDS SUMMARY | 2024-10-04 11:35 | XMS_ITS | Continuity of Care Document ---
Author Organization [facility] Address [address] [place] [address]- Care Team Providers Care Asphalt Patcher Name Role Phone Don MARION, Hank Benoit Primary Care Physic hernando Encounter [facility] [place] Date(s): 09/29/24 - 10/02/[address] [id number] Encounter Diagnosis Acute hypoxic respiratory failure(Final) - 09/29/24 Acute on chronic heart failure with preserved ejection fraction (HFpEF) (Discharge Diagnosis) - 09/30/24 Mitral stenosis(Discharge Diagnosis) - 09/30/24 Pacemaker(Discharge Diagnosis) - 09/30/24 Discharge Disposition: A-D/C Home Attending Physician: Whit Henderson MD Admitting Physician: Eduin Love DO Referring Physician: Not on Staff, Referring MD Encounter Type: Disch IP Allergies, Adverse Reactions, Alerts Substance Criticality Severity Reaction Reaction Severity Status codeine Active propranolol Active Immunizations Given and Recorded Vaccine Date Status Refusal Reason [id number] 12y+ bivalent booster vax 09/08/22 Recorded influenza [...] Refills, Maintenance, 12/31/23 2:19:00 PM EDT, Tablet, [facility], Partial fill upon patient request if the prescription is for a schedule II opioid drug., 159, cm, 12/31/23 7:50:00 EDT, Height, 84.6, kg, 12/17/23 8:19:00 EDT,Dry Weight Start Date: 12/31/23 Status: Ordered Quantity: 30.0 Unit: tablet Repeat number: 3 azaTHIOprine 50 mg oral tablet 2 [id number] mg, By Mouth, Daily in AM, Refills 0, Maintenance, 09/06/24 10:29:00 AM EST, Partial fill upon patient request if the prescription is for a schedule II opioid drug. Start Date: 09/06/24 Status: Ordered Repeat number: 1 calcium-vitamin D 250 mg-200 intl units oral tablet 1 tablet, By Mouth, 2 times a day, 0 Refills, Maintenance, 07/21/24 12:58:00 PM EST, Partial fill upon patient request if the prescription is for a schedule II opioid drug. Start Date: 07/21/24 Status: Ordered Repeat number: 1 Cardizem CD 120 mg/24 hours oral capsule, extended release 120 mg, CD Capsule, By Mouth, 10/02/24 9:00:00 AM EST Start Date: 10/02/24 Stop Date: 10/02/24 Status: Completed Repeat number: 1 Cardizem CD 120 mg/24 hours oral capsule, extended release 120 mg, By Mouth, Daily, # 30 tablet, Refills 0, Tot. Refills 0, Maintenance, 10/02/24 1:16:00 PM EST, Route to Pharmacy Electronically, [facility] #[id number], Partial fill upon patient request if the prescription is for a schedule II opioid drug., 160, cm, 10/02/24 11:59:00 EST, Height, 81.6, kg, 09/29/24 13:32:00 EST, Dry Weight Start Date: 10/02/24 Status: Ordered Quantity: 30.0 Unit: tablet Repeat number: 1 dexamethasone-tobramycin 0.1%-0.3% ophthalmic suspension 1 drops, Eyes, Both, 2 times a day, # 5 mL, 0 Refills, Maintenance, 09/29/24 1:12:00 PM EST, Ophth Suspension, Partial fill upon patient request if the prescription is for a schedule II opioid drug. Start Date: 09/29/24 Status: Ordered Quantity: 5.0 Unit: mL Repeat number: 1 docusate sodium 100 mg oral capsule 100 mg, 1, capsule, By Mouth, Daily, # 30 capsule, Refills 0, Tot. Refills 0, Maintenance, 10/02/24 1:16:00 PM EST, Route to Pharmacy Electronically, [facility] #[id number], Partial fill upon patient request if the prescription is for a schedule II opioid drug., 160, cm, 10/02/24 11:59:00 EST, Height, 81.6, kg, 09/29/24 13:32:00 EST, Dry Weight Start Date: 10/02/24 Status: Ordered Quantity: 30.0 Unit: capsule Repeat number: 1 ferrous sulfate 325 mg oral enteric coated tablet 325 mg, By Mouth, 2 times a day, # 20 tablet, Refills 0, Tot. Refills 0, Maintenance, 10/02/24 1:17:00 PM EST, Route to Pharmacy Electronically, [facility] #[id number], Partial fill upon patient request if the prescription is for a schedule II opioid drug., 160, cm, 10/02/24 11:59:00 EST, Height, 81.6, kg, 09/29/24 13:32:00 EST, Dry Weight Start Date: 10/02/24 Stop Date: 10/12/24 Status: Ordered Quantity: 20.0 Unit: tablet Repeat number: 1 furosemide 40 mg oral tablet 1.5 tab=60 mg, By Mouth, Daily, # 90 tablet, Refills [...] Quantity: 30.0 Unit: tablet Repeat number: 1 meclizine 25 mg oral [...] Repeat number: 1 metoprolol 50 mg oral tablet, extended release 50 mg, By Mouth, Daily, Refills 0, Maintenance, 10/02/24 1:18:00 PM EST, Partial fill upon patient request if the prescription is for a schedule II opioid drug. Start Date: 10/02/24 Status: Ordered Repeat number: 1 MiraLax oral powder for reconstitution = 17 Gm, By Mouth, Daily, PRN Constipation, dissolve in 4 to 8 oz of beverage, # 123 Gm, 0 Refills,Acute 10/08/24 10:00:00 PM EST, 10/02/24 1:18:00 PM EST, REC Powder, [facility] #[id number], Partial fill upon patient request if the prescription is for a schedule II opioid drug., 17 Gm By Mouth Da ciro,PRN:Constipation,Instr:dissolve in 4 to 8 oz of beverage, 160, cm, 10/02/24 11:59:00 EST, Height, 81.6, kg, 09/29/24 13:32:00 EST, Dry Weight Start Date: 10/02/24 Stop Date: 10/08/24 Status: Ordered Quantity: 123.0 Unit: g Repeat number: 1 Naproxen 1 tab, By Mouth, Daily, 0 Refills, Maintenance, 05/11/24 2:10:00 PM EDT, [...] 04/26/24 Status: Ordered Repeat number: 1 predniSONE 10 mg oral tablet = 10 mg, By Mouth, Daily, 0 Refills, Maintenance, 10/02/24 1:33:00 PM EST, Tablet, Partial fill upon patient request if the prescription is for a schedule II opioid drug. Start Date: 10/02/24 Status: Ordered Repeat number: 1 tiZANidine 4 mg oral capsule 1 capsule = 4 mg, By Mouth, 2 times a day, 0 Refills, Maintenance, 09/29/24 9:57:00 AM EST, Partial fill upon patient request if the prescription is for a schedule II opioid drug. Start Date: 09/29/24 Status: Ordered Repeat number: 1 Toprol XL Tablet 50 mg, XL Tablet, By Mouth, Hold for: SBP below 100, 10/02/24 9:00:00 AM EST Start Date: 10/02/24 Stop Date: 10/02/24 Status: Completed Repeat number: 1 traMADol 50 mg oral [...] atus Informant Obese class I Confirmed Active Diagnosis Diagnosis Type Effective Dates Health Status Cl inical Service Informant Acute on chronic heart failure with preserved ejection fraction (HFpEF) Discharge Diagnosis 09/30/24 Mitral stenosis Discharge Diagnosis 09/30/24 Pacemaker Discharge Diagnosis 09/30/24 Results Radiology Reports * Exam Date Time Procedure Performing Provider Status 09/29/24 8:16 AM Chest 2 Views Frontal and Lat Jaja Sheffield; Auth (Verified) Notes: (Chest 2 Views Frontal and Lat) Reason For Exam: Shortness of Breath RESULT: Chest 2 Views Frontal and Lat PROCEDURE: Chest 2 Views Frontal and Lat INDICATION: 74 years old Female with Hx of Present Illness: BERNIE, weakness and cough since last night, pt turned and repositioned on her bed and started coughing and catching her breath. Have O2 at home and she's been using it frequently. With pacemaker at Rt upper chest.; Reason: Shortness of Breath; Clinical Question(s): CHF. COMPARISON: Chest radiographs 2009 through December 22, 2023 FINDINGS: AP erect view of the chest obtained. Lines and tubes:LEFT subclavian transvenous atrial ventricular pacemaker again seen, leads intact. Lungs and pleura: Mild to moderate groundglass opacities in the perihilar regions bilaterally slightly more pronounced in the RIGHT than the LEFT is much increased compared to December 22, 2023, intermittently seen on prior chest radiographs in this location and other portions of the lungs probably represents asymmetric pulmonary edema. Mild peribronchial cuffing suggesting residual edema component.. No pleural effusions.No evidence of pneumothorax. Heart, mediastinum and fuad: Mild unchanged tortuosity and calcification of the thoracic aorta noted. Mild unchanged cardiomegaly and moderate unchanged pulmonary venous hypertension. Bones and soft tissues: Mild degenerative endplate changes in the thoracic spine. Moderate osteopenia. Severe arterial calcifications in the axillary arteries bilaterally. Mild to moderate calcifications adjacent to the humeral heads and acromion suggestive of calcific tendinopathy of bursitis again noted unchanged. Coarse calcification in the soft tissues of the proximal LEFT upper extremity again noted measuring up to 2 cm IMPRESSION: 1. Mild unchanged chronic cardiomegaly, increased now moderate pulmonary venous hypertension, mild possibly chronic interstitial and moderate new alveolar pulmonary edema as detailed above. No pleural effusions. 2. Intact dual pacemaker. 3. Areas of calcific tendinopathy of bursitis bilateral shoulders. Soft tissue calcification proximal LEFT arm exact etiology unknown. 4. Significant calcifications of the axillary arteries bilaterally. Thank you for allowing me to participate in the care of this patient. WSN: [id number] Ordering Physician: Dale Mark Dictated By: Papito Brantley MD Dictated Date/Time: 09/29/24 8:25 am Reviewed By: Papito Brantley MD Signed By: Papito Brantley MD Signed Date/Time: 09/29/24 8:25 am Transcribed By: NAIMA Transcribed Date/Time: 09/29/24 8:18 am Vital Signs Most recent to oldest [Reference Range]: 1 2 3 4 Height 160 cm (10/02/24 11:27 AM) 160 cm (10/02/24 9:36 AM) 160 cm (10/02/24 7:24 AM) Weight 79.3 kg (10/02/24 5:16 AM) 80.3 kg (10/01/24 7:01 AM) 80.3 kg (10/01/24 4:11 AM) Oxygen Saturation [94-100 %] 94 % (10/02/24 11:27 AM) 94 % (10/02/24 9:36 AM) 100 % (10/02/24 7:24 AM) Pulse Rate [55-90 bpm] 96 bpm *H* (10/02/24 11:27 AM) 99 bpm *H* (10/02/24 9:36 AM) 90 bpm (10/02/24 8:01 AM) 90 bpm (10/02/24 8:01 AM) Body Mass Index [18.5-24.99 kg/m2] 30.98 kg/m2 *>HHI* (10/02/24 5:16 AM) 31.76 kg/m2 *>HHI* (09/30/24 5:25 AM) 31.88 kg/m2 *>HHI* (09/29/24 1:24 PM) Blood Pressure [90-138/55-84 mm Hg] 123/63mm Hg (10/02/24 11:27 AM) 123/64mm Hg (10/02/24 8:01 AM) 123/64mm Hg (10/02/24 8:01 AM) Respiratory Rate [16-30 br/min] 18 br/min (10/02/24 11:27 AM) 18 br/min (10/02/24 7:24 AM) 15 br/min *L* (10/02/24 5:16 AM) Temperature [96.8-100.4 DegF] 98.6 DegF (10/02/24 11:27 AM) 98.6 DegF (10/02/24 7:24 AM) 98.7 DegF (10/02/24 5:16 AM) Liters per Minute 2 L/min (10/02/24 7:24 AM) 2 L/min (10/02/24 5:16 AM) 2 L/min (10/02/24 12:40 AM) Mode of Delivery (Oxygen) Room air (10/02/24 11:27 AM) Room air (10/02/24 9:36 AM) Nasal cannula (10/02/24 7:24 AM) Blood pressure sites Arm, right (10/02/24 11:27 AM) Arm, right (10/02/24 7:24 AM) Arm, right (10/02/24 5:16 AM) Temperature Route Oral (10/02/24 11:27 AM) Oral (10/02/24 7:24 AM) Oral (10/02/24 5:16 AM) Dry Weight 81.6 kg (09/29/24 1:24 PM) 81.6 kg (09/29/24 12:09 PM) 82 kg (09/29/24 6:44 AM) Weight Obtained Via Bed scale (10/02/24 5:16 AM) Bed scale (10/01/24 7:01 AM) Bed scale (10/01/24 4:11 AM) Dry Weight Obtained Via Bed scale (09/29/24 1:24 PM) Bed scale (09/29/24 12:09 PM) Social History Social History Type Response Smoking Status Former smoker, quit more than 30 days ago entered on: 09/29/24 Sex Sex Representation Female (finding) Consult note * Subha Brito RN: PERFORM, SIGN, VERIFY Event Display: Consult Authored Date: [id number] Patient: DARNELL LEVINE Age: 74 years Sex: Female : 1950 Associated Diagnoses: None Author: Subha Brito RN I met with and her daughter at bedside. Darnell had O2 on and was talking in full sentences. I explained to both of them about the CHF Program. She was give a CHF Folder and we went over the material. I explained to both about daily weights and the correct way to weigh herself. We also went over the three zones of heart failure, what to watch for and what to do if she has symptoms. Darnell admitted to eating more processed foods lately. We went over a low salt diet, foods to avoid, and foods high in salt. We also talked about some foods that are better options. Darnell says she cooks her own foods and will try to cook a low sodium diet. Darnell agrees to be in the Program and we will follow her after her discharge. * Humberto MARION, Lulu Graham: PERFORM Event Display: Consultation Note Authored Date: [id number] Patient: ??DARNELL LEVINE ? Age:??74 Years?Sex:??Female?:??1950?? Patient Hx Cardiology Shared Clinical Summary HFpEF Mitral stenosis -Cardiac catheterization on 04/26/2024 showing pulmonary capillary wedge pressure of 13, pulmonary artery pressure of 47/21 a mean gradient across the mitral valve of 9 mmHg with a calculated valve area of 1.7 cm2 -Transesophageal echo on 07/21/2024 showing near mitral annular calcification with thickening of the mitral leaflets and with a mean gradient of 6 mmHg at 74 bpm and moderate mitral regurgitation. 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 Bermudez??in [place].?? Had previously been maintained on amlodipine??for her Raynaud's??disease. ??She was started on??metoprolol??for heart rate control.?? This dose was apparently reduced.?? She had previously been on continuous oxygen but this was weaned??recently. ??She notes that approximately 2 weeks ago she was started on sildenafil??for pulmonary hypertension. ??Following this??she began??noticing increasing shortness of breath.?? She had been weaned from continuous oxygen.?? She notes that??for several days prior to admission she experienced??low??threshold exertional dyspnea. ??On the day prior to admission??she felt short of breath at rest and was using her oxygen continuously.?On the morning of admission, she noticed rattling??in her chest and experienced acute shortness of breath??and the ambulance was called.?? There were no symptoms of chest pain, however, she does have??reflux. ??She has not experienced chest pain with exertion.?? She has noticed some fluttering in her chest??on occasion.?? There have been no symptoms of lightheadedness or syncope. ??She has not experienced peripheral edema. ?? She has known mitral stenosis which was thought to be severe by echo and??cardiac catheterization.?? She underwent a transesophageal echo??in July of last year.?? This suggested??mild to moderate??mitral stenosis??with a heart rate in the 70s.?? Was evaluated by Dr. Washington??who indicated that mi tral valve replacement surgery would be high risk. ?? She does admit to salt indiscretion and she frequently eats??processed foods. ?? On arrival she was found to be in acute pulmonary edema.?Heart rate was over 100 bpm. ?? She was treated with intravenous diuresis and has improved since admission. Review of Systems Constitutional: No weight loss or gain. ??No fever or shaking chills. ??Notes fatigue. Eyes: Recent worsening vision ENT: ?? Notes difficulty swallowing.?? Respiratory: See HPI Cardiovascular: See HPI Gastrointestinal: No anorexia, nausea, vomiting or diarrhea. No constipation. ??No blood in the stools or black stools. Genitourinary: No hematuria.?? Neurologic: No headaches. She has numbness in hands. Musculoskeletal: Some discomfort in hands Hematologic/Lymphatics: No unusual bleeding or bruising.?? Skin:??No rash? Physical Exam Vitals & Measurements T:??98.1?F?? HR:??87??(Peripheral)?? RR:??16?? BP:??146/79?? SpO2:??91%?? HT:??160??cm?? WT:??81.3??kg?? BMI:??31.76?? Weight lb/oz: 179 lb 4 oz Constitutional: Alert, in no distress. Mental Status: Oriented to person, place and time. Head:??Normocephalic. Eyes: Pupils are equal. Extraocular muscles intact. Ear, Nose and Throat: Mucous membranes moist.?? Neck: Normal JVP.?? Carotids 2+ without bruits. Respiratory: Clear to auscultation. Cardiovascular:??Normal S1 and S2. ??No murmurs, rubs or gallops. Gastrointestinal: Abdomen soft, non-tender, non-distended. Normal bowel sounds. No pulsatile mass. Neurologic: No focal neurological deficits.?? . Skin: No rashes or lesions.? Extremities: No edema.?? Pulses 2+ and symmetric Psychiatric: Normal mood and affect? EKG:?? Sinus tachycardia with ventricular pacing Intake and Output Today's Output Total?300?? Today's Urine Voided?300?? Today's Balance? -300?? Yesterday's Intake Total?300?? Yesterday's Output Total? 2100?? Yesterday's Urine Voided? 2100?? Yesterday's Balance?-1800?? Clinical Range's Intake Total?300?? Clinical Range's Output Total? 2400?? Clinical Range's Total Urine Voided? 2400?? Clinical Range's Balance ?-2100?? Assessment/Plan 1.??Acute on chronic heart failure with preserved ejection fraction (HFpEF) ??This could be secondary to??a combination of increased heart rate??in the setting of mitral stenosis??following the institution of sildenafil,??salt indiscretion.?? Benefit from??dietary education regarding salt intake.?? Control of heart rate??would be optimal??to prolong diastolic filling time??given her mitral stenosis.?? I would recommend starting diltiazem CD1 120 mg daily??in addition to her metoprolol 50 mg twice daily.?? She may do better with the twice daily regimen of furosemide. 2.??Mitral stenosis ??Transesophageal echo this appears to be??mild to moderate,??but more significant by cardiac catheterization and transthoracic echo.?? Control of heart rate??is important to prolong diastolic filling time as above.?? Followed by Dr. Bermudez 3.??Pacemaker ??The pacemaker appears to be functioning normally 4.??HTN (hypertension) ??As elviravie, would discontinue amlodipine and start diltiazem CD 120mg daily Acute hypoxic respiratory failure (Provisional) Anemia Decompensated heart failure (Provisional) HLD (hyperlipidemia) Hypothyroid Pulmonary hypertension Allergies codeine propranolol Home Medications Acetaminophen: 1,300 mg = 2 tablet, By Mouth, Every 8 hours, PRN (Pain , Mild) Atorvastatin: 40 mg = 1 tablet, By Mouth, Daily at bedtime Azathioprine: 2 wyflka=647 mg, By Mouth, Daily in AM Calcium And Vitamin D Combination: 1 tablet, By Mouth, 2 times a day Dexamethasone / Tobramycin Ophthalmic: 1 drops, Eyes, Both, 2 times a day Furosemide: 1.5 tab=60 mg, By Mouth, Daily Levothyroxine: 88 mcg = 1 tablet, By Mouth, Daily Meclizine: 25 mg = 1 tablet, By Mouth, 3 times a day, PRN Melatonin: 5 mg = 1 tablet, By Mouth, Daily at bedtime Metoprolol: 1 tab, By Mouth, 2 times a day Naproxen: 1 tab, By Mouth, Daily Omeprazole: 40 mg = 1 capsule, By Mouth, Daily PredniSONE: 20 mg = 1 tablet, By Mouth, Daily Sildenafil: 20 mg = 1 tablet, By Mouth, 3 times a day Tizanidine: 4 mg = 1 capsule, By Mouth, 2 times a day Tramadol: 50 mg = 1 tablet, By Mouth, Every 12 hours Hospital Medications Medications (23) Active SCHEDULED: (10) Atorvastatin 40 mg Tablet (atorvastatin 40 mg oral tablet) ??40 mg, By Mouth, Daily at bedtime Azathioprine 50 mg Tablet (azaTHIOprine 50 mg oral tablet) ??100 mg, By Mouth, Daily in AM Enoxaparin 40 mg Inj (Enoxaparin Inj) ??40 mg 0.4 mL, Subcutaneous Injection, Daily Ferrous Sulfate 325 mg EC Tablet (ferrous sulfate 325 mg oral enteric coated tablet) ??325 mg, By Mouth, 2 times a day Furosemide Inj (Lasix ??Inj) ??40 mg 4 mL, IV Push Slowly, 2 times a day Levothyroxine 88 mcg Tablet (levothyroxine 0.088 mg oral tablet) ??88 mcg, By Mouth, Daily Metoprolol 50 mg XL Tablet (metoprolol 50 mg oral tablet, extended release) ??50 mg, By Mouth, 2 times a day NaCl 0.9% Flush 3ml (NaCL 0.9% Flush) ??3 mL, IV Push, Every 8 hours Pantoprazole 40 mg EC Tablet (pantoprazole 40 mg oral delayed release tablet) ??40 mg, By Mouth, Daily PredniSONE 5 mg Tablet (PredniSONE) ??10 mg, By Mouth, Daily CONTINUOUS: (0) PRN: (13) Acetaminophen 325 mg Tablet (Acetaminophen Tablet) ??650 mg, By Mouth, Every 6 hours Albuterol/Ipratropium Inhalation Ayana 3mL (Duoneb Inhalation Solution) ??1 vials, BAND Nebulizer, Every 4 hours Dextromethorphan-Guaifenesin 20 mg-200 mg/10 mL Liqu UD (Robitussin DM Liquid) ??10 mL, By Mouth, Every 4 hours Docusate Sodium 100 mg Capsule (Docusate Sodium Capsule) ??100 mg 1 capsule, By Mouth, 2 times a day Meclizine 12.5 mg Tablet (meclizine 12.5 mg oral tablet) ??25 mg, By Mouth, 3 times a day Melatonin 3 mg Tablet (Melatonin Tablet) ??3 mg, By Mouth, Daily at bedtime NaCl 0.9% Flush 3ml (NaCL 0.9% Flush) ??3 mL, IV Push, Every 8 hours Polyethylene Glycol 17 Gm Powder (MiraLax Powder) ??17 Gm 1 pack/packet, By Mouth, Daily Senna Tablet ??8.6 mg 1 tablet, By Mouth, 2 times a day Simethicone 80 mg Chewable Tablet (Simethicone Tablet) ??80 mg, Chew, 3 times a day Sodium Chloride 0.65% Nasal [place] (Salinex [place]) ??1 sprays, Nares, Both, 2 times a day Tizanidine 4 mg Tablet (tiZANidine 4 mg oral tablet) ??4 mg, By Mouth, 2 times a day TraMADOL 50 mg Tablet (traMADol 50 mg oral tablet) ??50 mg, By Mouth, Every 12 hours Lab Results Cardiology Labs Blood Count & Diff?? COAG?? General Chemistry?? Cardiac?? Endocrine/Tumor Marker?? WBC: 8.8 k/mm3 (09/30/24) INR: 0.9 (12/17/23) Sodium: 143 mmol/L (09/30/24) Bilirubin, Total: 0.9 mg/dL (12/27/23) Free T4: 1.21 ng/dL (12/17/23) RBC:??3.2 m/mm3??Low (09/30/24) Protime (PT): 10 seconds (12/17/23) Potassium:??3.3 mmol/L??Low (09/30/24) ? Hgb:??7.2 Gm/dL??Low (09/30/24) APTT:??22.2 seconds??Low (12/17/23) Chloride: 105 mmol/L (09/30/24) ? Hct:??25.2 %??Low (09/30/24) ?? Bicarbonate Level: 28 mmol/L (09/30/24) ? MCV:??78.8 femtoliters??Low (09/30/24) ?? Anion Gap: 10 mmol/L (09/30/24) ? Platelet Count: 313 k/mm3 (09/30/24) ?? Glucose Level:??102 mg/dL??High (09/30/24) ? BUN: 17 mg/dL (09/30/24) ? Creatinine-Blood: 0.76 mg/dL (09/30/24) ? Estimated GFR Creatinine: 77 ML/MIN/1.73 M2 (09/30/24) ? Calcium: 8.8 mg/dL (09/30/24) ? Magnesium: 2 mg/dL (12/29/23) ? Protein, Total:??6.1 Gm/dL??Low (12/27/23) ? Albumin: 3.6 Gm/dL (12/19/23) ? Alkaline Phosphatase: 74 units/L (12/27/23) ? AST (SGOT):??74 units/L??High (12/27/23) ? ALT (SGPT):??86 units/L??High (12/27/23) ? Diagnostic Impression ECG ECG 12-Lead ?? 06:38:43 Ventricular Rate: 103 BPM Atrial Rate: 103 BPM P-R Interval: 220 ms QRS Duration: 104 ms Q-T Interval: 346 ms QTC Calculation(Bazett): 453 ms P [place]: 45 degrees R [place]: 90 degrees T [place]: 2 degrees Atrial-sensed ventricular-paced rhythm with prolonged AV conduction Abnormal ECG When compared with ECG of 26-Apr-2024 11:11, Vent. rate has increased by 19 bpm Confirmed ?? Signed By: Lulu Beavers MD ?? ECG 12-Lead ?? 06:38:43 Please click on pdf link to open report ?? Signed By: Lulu Beavers MD Stress Test No qualifying data available. Echo Echocardiogram - Complete ?? 15:33:52 Summary The left ventricle is normal in size and wall thickness. Overall left ventricular systolic function is normal. LVEF visually estimated at 60-65%. There are no definite wall motion abnormalities. Unable to assess diastolic function due to E/A fusion . ?? Comparison Comparison is made to the study of February 12, 2021. No change. ?? Signature ?? Signed By: Ambrocio Shfafer DO PABLO Trans-esophageal Echocardiogram ?? 07/21/24 15:24:16 Summary The left ventricular systolic function is [...] 3D planimetry. There is moderate mitral regurgitation. ?? Impressions Progressive calcific mitral stenosis w valve area of 2.5 cm2 by 3 D planimetry. Moderate mitral regurgitation. ?? Comparison No prior PABLO study available for comparison. ?? Signature ?? Signed By: Ambrocio Shaffer DO Cardiac Cath Procedure Cardiac Cath Procedure ?? 14:33:00 Conclusions ?? Diagnostic Summary 73-year-old female with CREST syndrome with recent admission to hospital with hypoxic respiratory failure. Apparently at that time she was felt to be in heart failure and sent home. Echocardiography performed at that time raise concern for calcific mitral valve stenosis. We repeated the echocardiography after beta-blockade and there was still concern about mitral stenosis. She is here for diagnostic left and right heart catheterization. ?? Hemodynamics: Elevated systemic pressures. Normal LVEDP 11 mmHg. There is no gradient across aortic valve on pullback. PCWP 15 mm Hg. PA 47/21 (mean 31) RA 11 Mean gradient across MV at HR 72/min- 11 mm Hg. MVA 1.36 mm2. ?? Coronary anatomy: Separate ostia Left dominant circulation. No significant CAD. ?? The patient had hypoxic respiratory failure recently and echo raised concern for MS. She has severe MAC. By our assessment she has severe calcific mitral stenosis. ?? Diagnostic Recommendations Aggressive secondary risk factor modification according to ATP III guidelines. We will do further work up including PABLO to assess the mitral valve. She may need mitral valve replacement in the near future. ?? ACC Diagnostic Recommendations: Other cardiac therapy without CABG or PCI. ?? Complications:None. ?? Signatures ?? Signed By: Cristofer Bermudez MD Problem List/Past Medical History Ongoing Obese class I Smoker Procedure/Surgical History LEEP procedure of cervix: 08/31/98 Social History Alcohol Use: Never. Electronic Cigarette/Vaping Electronic Cigarette Use: Never. Employment/School Status: Retired. Exercise Self assessment: Fair condition. Home/Environment Living situation: Home/Independent. Lives with: Spouse. Nutrition/Health Diet: Regular. Substance Abuse Use: Never. Tobacco Use: Former smoker, quit more than 30 days ago. Family History Mother (): Thyroid disease Father (): CAD - Coronary artery disease; Hypertension Brother (): Asthma Other (m uncle): Diabetes mellitus type II Admission evaluation note * Gustavo GÓMEZ, Lida Mcginnis: PERFORM Event Display: Admission Note Authored Date: [id number] Patient: ??DARNELL LEVINE ? Age:??74 Years?Sex:??Female?:??1950?? Chief Complaint/Reason for Consultation BERNIE History of Present Illness 74-year-old woman with a past medical history significant for of CREST (followed at [facility] by Dr. Monson), hypothyroidism, mitral valve stenosis, heart block s/p PPM, hyperlipidemia, hypothyroidism,hypertension, pulmonary hypertension, pulmonary fibrosis (on prednisone and azathioprine) who presents with shortness of breath. ?? The patient is followed closely by the pulmonary medicine clinic and states that they have been working on weaning her off her oxygen and steroids for the past month.?? Has been feeling??short of??breath??for??the??past??2 days??with??a??dry??non??productive cough. She??reported a sensation??where s he??felt like??she??was??filling??up and drowning??in her own secretions.??She woke this morning feeling acutely short of breath and requiring the use of her prn oxygen that she has not had use for quite some time. She did not??have??any??orthopnea, PND,??chest pain, abd??swelling, nausea, vomiting, ??diarrhea,??or??le edema.??She admits to chronic dizziness in the setting of BPPV, currently denies. She does not follow a low salt diet, does not weight herself on a daily basis. She is normally followed by Dr. Bermudez??at [facility].?? Last echo back in March of 2024 with EF of>70% with LV wall thickness and normal RV function and size. calcified moderate mitral stenosis.? While in the ED, she was noted to be afebrile with a temperature of 98.7, pulse rate of 102, respiratory rate of 20, blood pressure of 133/66, and oxygen saturation of 91% on 6 L via nasal cannula.?? Initial laboratory analysis notable for a leukocytosis of 12.6, left shift of 10.3, mild anemia with a hemoglobin 7.5, hematocrit of 26.5, D-dimer of 0.67, potassium level of 3.3, glucose level 124, calcium level of 8.3, BNP of 2085, troponins of 33 and 34.?? Negative influenza A/B/RSV/COVID-19.?? Chest x-ray with mild unchanged chronic cardiomegaly, increased now moderate pulmonary venous hypertension, mild possibly chronic interstitial and moderate new alveolar pulmonary edema. No pleural effusions.?? Bedside ultrasound demonstrated bilateral B-lines.?? She was given a dose of Lasix and admitted for further management. Review of Systems A full review of systems was completed and is otherwise negative except as mentioned in history of present illness. Objective Measurements?? Height: 160 cm (09/29/24) Weight: 81.6 kg (09/29/24) Dry Weight: 81.6 kg (09/29/24) Body Mass Index:??31.88 kg/m2??Critical (09/29/24) ? Vital Signs?? Temperature: 98.4 DegF (09/29/24 13:24:00) Temperature Route: Oral (09/29/24 13:24:00) Pulse Rate:??98 bpm??High (09/29/24 13:24:00) Respiratory Rate: 16 br/min (09/29/24 13:24:00) Systolic Blood Pressure:??143 mm Hg??High (09/29/24 13:24:00) Diastolic Blood Pressure: 66 mm Hg (09/29/24 13:24:00) Blood pressure sites: Arm, left (09/29/24 13:24:00) Mean Arterial Pressure: 92 mm Hg (09/29/24 13:24:00) Pulse Pressure: 77 mm Hg (09/29/24 13:24:00) Oxygen Saturation: 97 % (09/29/24 13:24:00) Liters per Minute: 4 L/min (09/29/24 13:24:00) Mode of Delivery (Oxygen): Nasal cannula (09/29/24 13:24:00) Early Warning Score: 0 (09/29/24 13:33:12) ? Physical Exam General appearance: no acute distress, resting comfortably?? HEENT: Atraumatic, normocephalic. PERRL, EOM grossly intact, nonicteric. Neck: ??Supple, trachea midline. No JVD Respiratory: CTAB, easy respiratory effort, no wheeze, no accessory muscle use Cardiac: S1S2, heart rate regular, no murmurs/heaves/rubs/gallops Abdomen: round, soft, NT, ND +bowel sounds x4 quadrants, no HSM appreciated?? Extremities: no edema, AVILA, ??2+ radial, 2+ dorsalis pedis pulses Integument: Warm, dry, intact, no rash Neurologic: A/O x3, CN grossly intact. No focal weakness Psychological: Appropriate mood and affect Assessment/Plan Diagnoses Acute hypoxic respiratory failure ??(J96.01) Anemia ??(D64.9) Decompensated heart failure ??(I50.9) HLD (hyperlipidemia) ??(E78.5) HTN (hypertension) ??(I10) Hypothyroid ??(E03.9) Pulmonary hypertension ??(I27.20) ?? 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 Monson), hypothyroidism, mitral valve stenosis, heart block s/p PPM, hyperlipidemia, hypothyroidism, hypertension, pulmonary hypertension, pulmonary fibrosis (on prednisone and azathioprine) who presents with shortness of breath. ?? Pulmonary hypertension (I27.20):?? Acute hypoxic respiratory failure (J96.01):?? Decompensated heart failure (I50.9):?? History of nonspecific interstitial pneumonitis follows pulm closely, in the process of weaning off oxygen and steroid therapy presented with hypoxia and increased oxygen demands CXR with??mild unchanged chronic cardiomegaly, increased now moderate pulmonary venous hypertension, mild possibly chronic interstitial and moderate new alveolar pulmonary edema. No pleural effusions.??bedside US?demonstrated bilateral B-lines.??BNP??2084 Follows?Aidan from [facility]??center??with??Last echo 04/23 with EF of>70% with LV wall thickness and normal RV function and size. calcified moderate mitral stenosis.?? Likely from salt indiscretions -continue with Lasix 40 mg daily -continue with prn duonebs -daily weight, I+O, 2 gm salt diet -repeat echo -continue with home azathioprine 100 mg daily and prednisone 10 mg daily ?? Anemia (D64.9): ??presented with hg of 7.5 and hct??of 26.5 no active bleeding -check iron studies, folate level, and B12 level -transfuse for HGB<7 -daily CBC ?? HLD (hyperlipidemia) (E78.5):??continue with statin therapy ?? HTN (hypertension) (I10):??continue with Metoprolol? Hypothyroid (E03.9):??continue with levothyroxine ?? VTE Prophylaxis:??sq lovenox ?VTE Prophylaxis Assessment:??VTE Prophylaxis Ordered ?? Discharge Planning:??home in 1-2 days ?? Ongoing Medical Necessity:??CHF exacerbation management ?? Code Status:??full, confirmed at bedside ?Order Code Status:??Code Status Ordered ? Histories Allergies Allergies ?(Active and Proposed Allergies Only) propranolol? (Severity: Unknown severity, Onset: Unknown) codeine? (Severity: Unknown severity, Onset: Unknown) ? Past Medical History/Problem List Active Problems(1) Obese class I ? Past Surgical History LEEP procedure of cervix: 08/31/98 ? Social History Alcohol Details:??Use: Never. Employment/School Details:??Status: Retired. Exercise Details:??Self assessment: Fair condition. Home/Environment Details:??Living situation: Home/Independent. ??Lives with: Spouse. Nutrition/Health Details:??Diet: Regular. Substance Abuse Details:??Use: Never. Tobacco Details:??Use: Former smoker, quit more than 30 days ago. Details:??Use: Former smoker, quit more than 30 days ago. Details:??Use: Former smoker, quit more than 30 days ago. Electronic Cigarette/Vaping Details:??Electronic Cigarette Use: Never. ? Family History Mother??(): Thyroid disease Father??(): CAD - Coronary artery disease; Hypertension Brother??(): Asthma Other??(m uncle): Diabetes mellitus type II ? Medications Home Medications Acetaminophen (Tylenol 8 Hour 650 mg oral tablet, extended release)?2?tab(s)?1,300?Milligram?By Mouth?Every 8 hours?as needed?Pain , Mild Atorvastatin (atorvastatin 40 mg oral tablet)?1?tab(s)?40?Milligram?By Mouth?Daily at bedtime Azathioprine (azaTHIOprine 50 mg oral tablet)?2 tnwqva=708 mg?By Mouth?Daily in AM Calcium And Vitamin D Combination (calcium-vitamin D 250 mg-200 intl units oral tablet)?1?tab(s)?By Mouth?2 times a day Dexamethasone / Tobramycin Ophthalmic (dexamethasone-tobramycin 0.1%-0.3% ophthalmic suspension)?1?Drops?Eyes, Both?2 times a day Furosemide (furosemide 40 mg oral tablet)?40?Milligram?1?tablet?By Mouth?Daily?1.5 tab=60 mg Levothyroxine (levothyroxine 0.088 mg oral tablet)?1?tab(s)?88?Microgram?By Mouth?Daily Meclizine (meclizine 25 mg oral tablet)?1?tab(s)?25?Milligram?By Mouth?3 times a day?PRN Melatonin (melatonin 5 mg oral tablet)?1?tab(s)?5?Milligram?By Mouth?Daily at bedtime Metoprolol (metoprolol succinate 50 mg oral capsule, extended release)?1 tab?By Mouth?2 times a day Naproxen?By Mouth?1 tab?Daily Omeprazole (omeprazole 40 mg oral enteric coated capsule)?1?capsule?40?Milligram?By Mouth?Daily PredniSONE (predniSONE 20 mg oral tablet)?1?tab(s)?20?Milligram?By Mouth?Daily Sildenafil (sildenafil 20 mg oral tablet)?1?tab(s)?20?Milligram?By Mouth?3 times a day Tizanidine (tiZANidine 4 mg oral capsule)?1?capsule?4?Milligram?By Mouth?2 times a day Tramadol (traMADol 50 mg oral tablet)?1?tab(s)?50?Milligram?By Mouth?Every 12 hours ? Inpatient Medications Medications (19) Active SCHEDULED: (8) Atorvastatin 40 mg Tablet (atorvastatin 40 mg oral tablet) ??40 mg, By Mouth, Daily at bedtime Azathioprine 50 mg Tablet (azaTHIOprine 50 mg oral tablet) ??100 mg, By Mouth, Daily in AM Enoxaparin 40 mg Inj (Enoxaparin Inj) ??40 mg 0.4 mL, Subcutaneous Injection, Daily Furosemide Inj (Lasix ??Inj) ??40 mg 4 mL, IV Push Slowly, Daily Levothyroxine 88 mcg Tablet (levothyroxine 0.088 mg oral tablet) ??88 mcg, By Mouth, Daily Metoprolol 50 mg XL Tablet (metoprolol 50 mg oral tablet, extended release) ??50 mg, By Mouth, 2 times a day NaCl 0.9% Flush 3ml (NaCL 0.9% Flush) ??3 mL, IV Push, Every 8 hours PredniSONE 5 mg Tablet (PredniSONE) ??10 mg, By Mouth, Daily CONTINUOUS: (0) PRN: (11) Acetaminophen 325 mg Tablet (Acetaminophen Tablet) ??650 mg, By Mouth, Every 6 hours Dextromethorphan-Guaifenesin 20 mg-200 mg/10 mL Liqu UD (Robitussin DM Liquid) ??10 mL, By Mouth, Every 4 hours Docusate Sodium 100 mg Capsule (Docusate Sodium Capsule) ??100 mg 1 capsule, By Mouth, 2 times a day Meclizine 12.5 mg Tablet (meclizine 12.5 mg oral tablet) ??25 mg, By Mouth, 3 times a day Melatonin 3 mg Tablet (Melatonin Tablet) ??3 mg, By Mouth, Daily at bedtime NaCl 0.9% Flush 3ml (NaCL 0.9% Flush) ??3 mL, IV Push, Every 8 hours Polyethylene Glycol 17 Gm Powder (MiraLax Powder) ??17 Gm 1 pack/packet, By Mouth, Daily Senna Tablet ??8.6 mg 1 tablet, By Mouth, 2 times a day Simethicone 80 mg Chewable Tablet (Simethicone Tablet) ??80 mg, Chew, 3 times a day Tizanidine 4 mg Tablet (tiZANidine 4 mg oral tablet) ??4 mg, By Mouth, 2 times a day TraMADOL 50 mg Tablet (traMADol 50 mg oral tablet) ??50 mg, By Mouth, Every 12 hours ? Results Recent Labs BLOOD COUNT & DIFF WBC 12.6 k/mm3 (High)?? 09/29/2024 07:04 RBC 3.34 m/mm3 (Low)?? 09/29/2024 07:04 Hgb 7.5 Gm/dL (Low)?? 09/29/2024 07:04 Hct 26.5 % (Low)?? 09/29/2024 07:04 MCV 79.3 femtoliters (Low)?? 09/29/2024 07:04 MCH 22.5 pg (Low)?? 09/29/2024 07:04 MCHC 28.3 Gm/dL (Low)?? 09/29/2024 07:04 Platelet Count 273 k/mm3 ()?? 09/29/2024 07:04 RDW-SD 53.5 femtoliters (High)?? 09/29/2024 07:04 MPV 8.7 femtoliters (Low)?? 09/29/2024 07:04 Nucleated RBC (Automated) 0.0 #/100 WBC'S ()?? 09/29/2024 07:04 Abs. NRBC 0.0 k/mm3 ()?? 09/29/2024 07:04 Abs. Neut 10.3 k/mm3 (High)?? 09/29/2024 07:04 Abs. Lymph 0.7 k/mm3 (Low)?? 09/29/2024 07:[address] [place] 1.2 k/mm3 (High)?? 09/29/2024 07:04 Abs. Eo 0.2 k/mm3 ()?? 09/29/2024 07:04 Abs. Baso 0.0 k/mm3 ()?? 09/29/2024 07:04 Neut % 82.3 % (High)?? 09/29/2024 07:04 Lymph % 5.7 % (Low)?? 09/29/2024 07:04 [place] % 9.6 % ()?? 09/29/2024 07:04 Eos % 1.2 % ()?? 09/29/2024 07:04 Baso % 0.2 % ()?? 09/29/2024 07:04 Imm Gran 1.0 % ()?? 09/29/2024 07:04 Abs. Imm Gran 0.1 k/mm3 ()?? 09/29/2024 07:04 ?? CARDIAC Nt-Probnp 2085 pg/mL (High)?? 09/29/2024 07:04 High Sensitivity Troponin (HSTnT) 30 ng/L (High)?? 09/29/2024 11:00 ?? CHEM GENERAL Sodium 142 mmol/L ()?? 09/29/2024 07:04 Potassium 3.3 mmol/L (Low)?? 09/29/2024 07:04 Chloride 107 mmol/L ()?? 09/29/2024 07:04 Bicarbonate Level 24 mmol/L ()?? 09/29/2024 07:04 Anion Gap 11 mmol/L ()?? 09/29/2024 07:04 Glucose Level 124 mg/dL (High)?? 09/29/2024 07:04 BUN 16 mg/dL ()?? 09/29/2024 07:04 Creatinine-Blood 0.77 mg/dL ()?? 09/29/2024 07:04 Estimated GFR Creatinine 76 ML/MIN/1.73 M2 ()?? 09/29/2024 07:04 Calcium 8.3 mg/dL (Low)?? 09/29/2024 07:04 ?? COAG D-Dimer 0.67 mg/L FEU ()?? 09/29/2024 07:04 ?? FLUID STUDIES Hold Other SPECIMEN DISCARDED AFTER 1 WEEK ()?? 09/29/2024 07:04 ?? HEME OTHER Hold Blue Top SPECIMEN DISCARDED AFTER 4 HOURS. ()?? 09/29/2024 07:04 ?? URINE OTHER Est Creatinine Clearance 53.01 mL/min ()?? 09/29/2024 07:31 ?? VIROLOGY Influenza A PCR NEGATIVE ()?? 09/29/2024 06:46 Influenza B PCR NEGATIVE ()?? 09/29/2024 06:46 RSV PCR NEGATIVE ()?? 09/29/2024 06:46 COVID-19 PCR Specimen Source NASAL ()?? 09/29/2024 06:46 COVID-19 PCR Result NEGATIVE ()?? 09/29/2024 06:46 ? Abnormal Labs ?? BLOOD COUNT & DIFF Abs. Imm Gran?0.1 k/mm3 ()?09/29/2024 07:04 Abs. Lymph?0.7 k/mm3 (Low)?09/29/2024 07:[address] [place]?1.2 k/mm3 (High)?09/29/2024 07:04 Abs. NRBC?0.0 k/mm3 ()?09/29/2024 07:04 Abs. Neut?10.3 k/mm3 (High)?09/29/2024 07:04 Hct?26.5 % (Low)?09/29/2024 07:04 Hgb?7.5 Gm/dL (Low)?09/29/2024 07:04 Imm Gran?1.0 % ()?09/29/2024:04 Lymph %?5.7 % (Low)?09/29/2024:04 MCH?22.5 pg (Low)?09/29/2024:04 MCHC?28.3 Gm/dL (Low)?09/29/2024:04 MCV?79.3 femtoliters (Low)?09/29/2024:04 MPV?8.7 femtoliters (Low)?09/29/2024:04 Neut %?82.3 % (High)?09/29/2024:04 Nucleated RBC (Automated)?0.0 #/100 WBC'S ()?09/29/2024:04 RBC?3.34 m/mm3 (Low)?09/29/2024:04 RDW-SD?53.5 femtoliters (High)?09/29/2024 07:04 WBC?12.6 k/mm3 (High)?09/29/2024 07:04 ?? CARDIAC High Sensitivity Troponin (HSTnT)?30 ng/L (High) ??09/29/2024 11:00 Nt-Probnp?2085 pg/mL (High)?09/29/2024 07:04 ?? CHEM GENERAL Calcium?8.3 mg/dL (Low)?09/29/2024 07:04 Estimated GFR Creatinine?76 ML/MIN/1.73 M2 ()?09/29/2024 07:04 Glucose Level?124 mg/dL (High)?09/29/2024 07:04 Potassium?3.3 mmol/L (Low)?09/29/2024 07:04 ?? COAG D-Dimer?0.67 mg/L FEU ()?09/29/2024 07:04 ?? FLUID STUDIES Hold Other?SPECIMEN DISCARDED AFTER 1 WEEK ()?09/29/2024 07:04 ?? HEME OTHER Hold Blue Top?SPECIMEN DISCARDED AFTER 4 HOURS. ()?09/29/2024 07:04 ?? VIROLOGY COVID-19 PCR Specimen Source?NASAL () ?09/29/2024 06:46 COVID-19 PCR Result?NEGATIVE ()?09/29/2024 06:46 Influenza A PCR?NEGATIVE ()?09/29/2024 06:46 Influenza B PCR?NEGATIVE ()?09/29/2024 06:46 RSV PCR?NEGATIVE ()?09/29/2024:46 ?? Note: Critical results are displayed in red. ? Blood Glucose Trend Glucose Level:??124 mg/dL??High (09/29/24 07:04:00) ? CBC, CBC w/Diff?? CBC?? Differential?? WBC:??12.6 k/mm3??High (07:04) Abs. Neut:??10.3 k/mm3??High (07:04) RBC:??3.34 m/mm3??Low (07:04) Abs. Lymph:??0.7 k/mm3??Low (07:04) Hct:??26.5 %??Low (07:04) Abs. [place]:??1.2 k/mm3??High (07:04) RDW-SD:??53.5 femtoliters??High (07:04) Abs. Eo: 0.2 k/mm3 (07:04) Nucleated RBC (Automated): 0 #/100 WBC'S (07:04) Abs. Baso: 0 k/mm3 (07:04) Abs. NRBC: 0 k/mm3 (07:04) Neut %:??82.3 %??High (07:04) ?? Lymph %:??5.7 %??Low (07:04) ?? [place] %: 9.6 % (07:04) ?? Eos %: 1.2 % (07:04) ?? Baso %: 0.2 % (07:04) ?? Imm Gran: 1 % (07:04) ?? Abs. Imm Gran: 0.1 k/mm3 (07:04) ? BMP, Mg, and Phos Anion Gap: 11 mmol/L (07:04) Bicarbonate Level: 24 mmol/L (07:04) BUN: 16 mg/dL (07:04) Calcium:??8.3 mg/dL??Low (07:04) Chloride: 107 mmol/L (07:04) Creatinine-Blood: 0.77 mg/dL (07:04) Estimated GFR Creatinine: 76 ML/MIN/1.73 M2 (07:04) Glucose Level:??124 mg/dL??High (07:04) Potassium:??3.3 mmol/L??Low (07:04) Sodium: 142 mmol/L (07:04) ?? Coagulation Profile D-Dimer: 0.67 mg/L FEU (07:04) ?? LFT?? No qualifying data available. ?? Urinalysis Est Creatinine Clearance: 53.01 mL/min (07:31) ?? Microbiology ?? COVID-19, RSV, and Flu A/B, Rapid PCR?? Completed?? Source: Nasal Body Site: Nose Collected Dt/Tm: 09/29/2024 06:46 Last Updated Dt/Tm: 09/29/2024 07:40 ? Cardiology Labs Nt-Probnp:??2085 pg/mL??High (09/29/24 07:04:00) High Sensitivity Troponin (HSTnT):??30 ng/L??High (09/29/24 11:00:00) High Sensitivity Troponin (HSTnT):??34 ng/L??High (09/29/24 09:08:00) High Sensitivity Troponin (HSTnT):??33 ng/L??High (09/29/24 07:04:00) ? EKG study * Event Display: ECG 12-Lead Authored Date: Please click on pdf link to open report * Event Display: ECG 12-Lead Authored Date: [id number] Ventricular Rate: 103 BPM Atrial Rate: 103 BPM P-R Interval: 220 ms QRS Duration: 104 ms Q-T Interval: 346 ms QTC Calculation(Bazett): 453 ms P [place]: 45 degrees R [place]: 90 degrees T [place]: 2 degrees Atrial-sensed ventricular-paced rhythm with prolonged AV conduction Abnormal ECG When compared with ECG of 26-Apr-2024 11:11, Vent. rate has increased by 19 bpm Confirmed by LULU BEAVERS ([id number]) on 09/30/2024 7:22:33 AM [place]: LULU BEAVERS Heart * Event Display: Echocardiogram - Complete Authored Date: [id number] Transthoracic Echocardiography Report (TTE) Patient Demographics Patient Name DARNELL LEVINE Date of Study 09/30/2024 Corporate Gender Female Facility Race .[id number] Ethnicity Date of 1950 Height: 62.99 inches Age 74 year(s) Weight: 180.78 pounds Accession Number [id number] BSA: 1.85 m2 Room Number [id number] BMI: 32.03 kg/m2 Referring Gustavo Mcginnis [employer] Interpreting Lulu Beavers MD Physician Physician Pneumatic Tool Repairer Theo García [facility] Indications Heart failure. Clinical History CREST Syndrome High degree AV block/ complete heart block S/P Pacemaker Palpitations Obesity. Hypothyroidism Hypertension. [place] COVID-19 Positive Hx bifasciular block Study Data Type of Study TTE procedure:Echo Complete-Doppler, Colorflow, M-Mode. Study Date09/30/2024 Start Time: 09:34 AM Study Location: [facility] Echo Study Status: Bedside Patient Status: Routine Technical Quality: Fair EKG: Normal sinus rhythm HR: 88 bpm Allergies - Codeine. - Other allergy:(Propanalol). 2D Measurements LV Diastolic Dimension: 5.2 cm LV Systolic Dimension: 2.8 cm LV Septum Diastolic: 1 cm LV PW Diastolic: 1.1 cm AO Root Dimension: 3.3 cm LA ESV (BP):38 ml LVOT Stroke Volume: 56.43 ml LA ESV Index: 21 ml/m2 Stroke Volume Index30.5 ml/m2 LVOT: 2.1 cm Cardiac Index:2.69 l/min/m2 Ascending Aorta:2.9 cm Doppler Measurements AV Peak Velocity: 142 cm/s AV Peak Gradient: 8.07 mmHg MV Mean Gradient: 9 mmHg LVOT Peak Velocity: 90.8 cm/s MV Area (continuity): 1.5 cm2 LVOT VTI16.3 cm TR Velocity:340 cm/s TR Gradient:46.24 mmHg Cardiac Anatomy Left Ventricle/Interventricular Septum The left ventricular size is normal. The left ventricular wall thickness is upper normal. The LV systolic function is normal . The left ventricular ejection fraction is 60-65 %. There are no definite regional wall motion abnormalities. Unable to assess diastolic function due to severe mitral annulus calcification . Left Atrium/Interatrial Septum The left atrium is normal in size. Aortic Valve The aortic valve is trileaflet and mildly thickened and calcified. There is no significant aortic stenosis or insufficiency. Mitral Valve There is severe mitral annular calcification. The mitral valve appears mildly thickened. There is at least moderate mitral stenosis with a mean gradient of 9mmHg at 90bpm. There is mild to moderate mitral regurgitation. Aorta The ascending aorta and aortic root are normal in size. Right Ventricle The right ventricular size and function appears grossly normal. A pacer/ICD wire is seen in the right ventricle. Right Atrium The right atrium is normal in size. Right atrial pacemaker lead is present. Pulmonic Valve The pulmonic valve appears grossly normal. Tricuspid Valve The tricuspid valve appears normal . There is mild tricuspid valve regurgitation. Pumonary Artery The pulmonary artery systolic pressure estimation is moderately elevated at 50-55 mmHg. Venous Structures The inferior vena cava appears normal. Pericardium/Extracardiac There is no significant pericardial effusion. Summary The left ventricular size is normal. The left ventricular wall thickness is upper normal. The LV systolic function is normal . The left ventricular ejection fraction is 60-65 %. There are no definite regional wall motion abnormalities. Unable to assess diastolic function due to severe mitral annulus calcification . The right ventricular size and function appears grossly normal. A pacer/ICD wire is seen in the right ventricle. The aortic valve is trileaflet and mildly thickened and calcified. There is no significant aortic stenosis or insufficiency. There is severe mitral annular calcification. The mitral valve appears mildly thickened. There is at least moderate mitral stenosis with a mean gradient of 9mmHg at 90bpm. There is mild to moderate mitral regurgitation. The tricuspid valve appears normal . There is mild tricuspid valve regurgitation. The inferior vena cava appears normal. The pulmonary artery systolic pressure estimation is moderately elevated at 50-55 mmHg. Comparison Comparison is made to the study of December 18, 2023. At least moderate mitral stenosis and mild to moderate mitral regurgitation are now apparent. A pacemaker is visualized in right atrium and right ventricle. Moderate pulmonary hypertension is now apparent. Signature * Event Display: Echocardiogram - Complete Authored Date: [id number] [facility] Progress note * BeauchemPhoebe lundberg RN: PERFORM, SIGN, VERIFY Event Display: Progress Note Hospital Authored Date: [id number] Patient: DARNELL LEVINE Age: 74 years Sex: Female : 1950 Associated Diagnoses: None Author: Phoebe Aguiar RN Findings Problem Related to Alteration in Cardiac Function (new) : Alteration in Cardiac Function/new 10/02/2024 11:00 EST Alteration in Cardiac Status Related to Heart failure Goals & Outcomes, Cardiac Status Pt will resume/maintain adequate cardiac output, Pt will resume/maintain adequate hemodynamic status, Pt will resume/maintain adequate respiratory function Cardiac Interventions Implemented Assess/monitor cardiac status, Assess/monitor neuro status, Assess/monitor respiratory status, Monitor & document daily weight, Prep pt for treatments & procedures, Teach/encourage deep breath & cough exercises BH Goals/Interventions, Cardiac Yes Cardiac, Problem Start 09/29/2024 19:00 Reviewed Plan with, Cardiac Status Patient Patient Progression, Cardiac Status Patient progressing according to plan . Nursing Data Cardiac Data. 10/02/2024 11:17 EST Nail Bed Color, Fingers [place] Nail Bed Color, Toes [place] Skin Temperature Upper Extremities Warm Skin Temperature Lower Extremities Warm Cardiac Rhythm Paced engine monitor Yes Cardiovascular WNL except . Respiratory/Pulmonary Data. : Respiratory/Pulmonary Data. 10/02/2024 11:17 EST Respiratory Symptoms Dyspnea with exertion Respiratory effort Unlabored Respiratory pattern Regular Left Upper Lobe Breath Sounds Clear Right Upper Lobe Breath Sounds Clear Right Middle Lobe Breath Sounds Clear Left Lower Lobe Breath Sounds Clear Right Lower Lobe Breath Sounds Clear Respiratory distress None Respiratory WNL except . Vital Signs : VITAL SIGNS SECTION 10/02/2024 7:24 EST Temperature 98.6 DegF Temperature Route Oral Pulse Rate 90 bpm Respiratory Rate 18 br/min Systolic Blood Pressure 123 mm Hg Diastolic Blood Pressure 64 mm Hg Blood pressure sites Arm, right Mean Arterial Pressure 84 mm Hg Pulse Pressure 59 mm Hg Oxygen Saturation 100 % Liters per Minute 2 L/min Mode of Delivery (Oxygen) Nasal cannula . Narrative/Incidental Pt A&Ox4. Complained of chronic back pain, did not require interventions at this time. Paced ontele. Pt gets SOB on excertion. Tolerating diet well. Pt able to transfer to the commode independently. Pt has been medically cleared to be discharged home. . Discharge Information Rehabilitation Discharge : Rehab Discharge Index 10/01/2024 11:29 EST Walker: distance >50 Full chart review completed Yes Hospital course Pt is admitted with acute hypoxic respiratory failure secondary to acute congestivediastolic heart failure and right-sided heart failure. Other findings Pt has been ambulating independently within room without AD and demos mod I ambulation with RW within hallways with O2 2L/min WNL throughout visit. Pt has adequate support at home and all DME, declines the need for home services. * Татьяна Guillory RN: PERFORM, VERIFY, MODIFY, SIGN Event Display: Progress Note Hospital Authored Date: Patient: DARNELL LEVINE Age: 74 years Sex: Female : 1950 Associated Diagnoses: None Author: Татьяна Guillory RN Findings Problem Related to Alteration in Cardiac Function (new) : Alteration in Cardiac Function/new 10/02/2024 1:00 EST Alteration in Cardiac Status Related to Heart failure Goals & Outcomes, Cardiac Status Pt will resume/maintain adequate cardiac output, Pt will resume/maintain adequate hemodynamic status, Pt will resume/maintain adequate respiratory function Cardiac Interventions Implemented Assess/monitor cardiac status, Assess/monitor neuro status, Assess/monitor respiratory status, Call/Report variances in ECG to provider, Document & Monitor O2 Sats; Administer O2 as ordered, Monitor ECG w/administration of antiarrhythmics (CO 13.420), Obtain 12Lead ECG and CXR as ordered, Prep pt for treatments & procedures, Fluid restriction per MD order BH Goals/Interventions, Cardiac Yes Cardiac, Problem Start 09/29/2024 19:00 Reviewed Plan with, Cardiac Status Patient Patient Progression, Cardiac Status Patient progressing according to plan . Nursing Data Cardiac Data. : Cardiac Data. 10/01/2024 20:20 EST Cardiovascular Symptoms None Nail Bed Color, Fingers [place] Nail Bed Color, Toes [place] Skin Temperature Upper Extremities Warm Skin Temperature Lower Extremities Warm Cardiac Rhythm Paced Dorsalis Pedis Pulse, Left Normal Dorsalis Pedis Pulse, Right Normal Ankle, left None Ankle, right None engine monitor Yes Cardiovascular WNL except . Vital Signs : VITAL SIGNS SECTION 10/02/2024 5:16 EST Early Warning Score 0.00 10/02/2024 5:16 EST Temperature 98.7 DegF Temperature Route Oral Pulse Rate 81 bpm Respiratory Rate 15 br/min L Systolic Blood Pressure 101 mm Hg Diastolic Blood Pressure 65 mm Hg Blood pressure sites Arm, right Mean Arterial Pressure 77 mm Hg Pulse Pressure 36 mm Hg Oxygen Saturation 97 % Liters per Minute 2 L/min Mode of Delivery (Oxygen) Nasal cannula 10/02/2024 0:40 EST Temperature 98.6 DegF Temperature Route Oral Pulse Rate 89 bpm Respiratory Rate 18 br/min Systolic Blood Pressure 119 mm Hg Diastolic Blood Pressure 62 mm Hg Blood pressure sites Arm, right Mean Arterial Pressure 81 mm Hg Pulse Pressure 57 mm Hg Oxygen Saturation 94 % Liters per Minute 2 L/min Mode of Delivery (Oxygen) Nasal cannula 10/01/2024 19:56 EST Early Warning Score 2.00 10/01/2024 19:56 EST Temperature 99 DegF Temperature Route Oral Pulse Rate 93 bpm H Respiratory Rate 17 br/min Systolic Blood Pressure 119 mm Hg Diastolic Blood Pressure 66 mm Hg Blood pressure sites Arm, right Mean Arterial Pressure 84 mm Hg Pulse Pressure 53 mm Hg Oxygen Saturation 95 % Liters per Minute 2 L/min Mode of Delivery (Oxygen) Nasal cannula . Narrative/Incidental Report received from previous RN Peace at approximately 19:00. Patient is A+Ox4. Denies any pain overnight. Paced on tele. Lungs are clear on 2L NC, reports SOB with exertion. Ambulating independently to the commode. Safety maintained, bed in lowest, locked position. Call lazaro within reach and will use appropriately. . Discharge Information Rehabilitation Discharge : Rehab Discharge Index 10/01/2024 11:29 EST Walker: distance >50 Full chart review completed Yes Hospital course Pt is admitted with acute hypoxic respiratory failure secondary to acute congestivediastolic heart failure and right-sided heart failure. Other findings Pt has been ambulating independently within room without AD and demos mod I ambulation with RW within hallways with O2 2L/min WNL throughout visit. Pt has adequate support at home andall DME, declines the need for home services. * Santiago MARION, Whit Ortiz: PERFORM Event Display: Progress Note Hospital Authored Date: Patient: ??DARNELL LEVINE ? Age:??74 Years?Sex:??Female?:??1950?? Subjective Patient is alert, oriented x 4, states shortness of breath and leg edema improved. ??Reports constipation. ??Denies chest pain, lightheadedness. ??Review of system negative otherwise. Review of Systems Allergies Allergies ?(Active and Proposed Allergies Only) propranolol? (Severity: Unknown severity, Onset: Unknown) codeine? (Severity: Unknown severity, Onset: Unknown) ? Objective Measurements?? Height: 160 cm (10/01/24) Weight: 80.3 kg (10/01/24) Dry Weight: 81.6 kg (09/29/24) Body Mass Index:??31.76 kg/m2??Critical (09/30/24) ? Vital Signs?? Temperature: 98.2 DegF (10/01/24 15:03:00) Temperature Route: Oral (10/01/24 15:03:00) Pulse Rate:??95 bpm??High (10/01/24 15:03:00) Respiratory Rate: 16 br/min (10/01/24 15:03:00) Systolic Blood Pressure: 112 mm Hg (10/01/24 15:03:00) Diastolic Blood Pressure: 66 mm Hg (10/01/24 15:03:00) Blood pressure sites: Arm, right (10/01/24 15:03:00) Mean Arterial Pressure: 81 mm Hg (10/01/24 15:03:00) Pulse Pressure: 46 mm Hg (10/01/24 15:03:00) Oxygen Saturation: 94 % (10/01/24 15:03:00) Liters per Minute: 2 L/min (10/01/24 11:10:00) Mode of Delivery (Oxygen): Room air (10/01/24 15:03:00) FiO2: 21 % (10/01/24 15:55:00) Early Warning Score: 2 (10/01/24 15:13:52) ? Intake/Output? 09/29 08:20 10/01 07:00 09/30 07:00 09/29 07:00 09/28 07:00 ?? 10/01 16:01 10/01 16:01 10/01 06:59 09/30 06:59 09/29 06:59 Intake ?540 ?240 ?0 ?300 ?0 Output ? 4250 ?0 ? 2150 ? 2100 ?0 Net Total ?-3710 ?240 ?-2150 ?-1800 ?0 ? Physical Exam General:??Alert, in no acute cardiopulmonary distress. Mental Status:??Oriented to person, place and time. Normal affect. Head:??Normocephalic. Eyes:??Pupils are equal, round and reactive to light. Extraocular muscles intact. Ear, Nose and Throat:??Oropharynx clear, mucous membranes moist. Ears and nose without masses, lesions or deformities. Trachea midline. Neck:??Supple, Full range of motion. Respiratory:??Diminished at both bases, improved from prior. Cardiovascular:??Heart sounds normal. No thrills. Regular rate and rhythm, 3/6 midsystolic??murmur,best heard on the right parasternal border,??no rubs or gallops. Lower extremity with no??edema bilaterally??improved from prior. Gastrointestinal:??Abdomen soft, non-tender, non-distended. Normal bowel sounds. No pulsatile mass.No hepatosplenomegaly. Genitourinary:??No costovertebral angle tenderness. Neurologic:??Cranial nerves II-XII grossly intact. No focal neurological deficits.?? Moves all extremities spontaneously. Sensation intact bilaterally. Skin:??No rashes or lesions. No petechiae or purpura. No edema. Musculoskeletal:??No cyanosis or clubbing. No gross deformities. Normal range of motion. _ Inpatient Medications Medications (29) Active SCHEDULED: (15) Atorvastatin 40 mg Tablet (atorvastatin 40 mg oral tablet) ??40 mg, By Mouth, Daily at bedtime Azathioprine 50 mg Tablet (azaTHIOprine 50 mg oral tablet) ??100 mg, By Mouth, Daily in AM Diltiazem 120 mg/24 hour CD Capsule (Cardizem CD 120 mg/24 hours oral capsule, extended release) ??120 mg, By Mouth, Daily Docusate Sodium 100 mg Capsule (Docusate Sodium Capsule) ??100 mg 1 capsule, By Mouth, 2 times a day Enoxaparin 40 mg Inj (Enoxaparin Inj) ??40 mg 0.4 mL, Subcutaneous Injection, Daily Ferrous Sulfate 325 mg EC Tablet (ferrous sulfate 325 mg oral enteric coated tablet) ??325 mg, By Mouth, 2 times a day Furosemide 20 mg Tablet (furosemide 40 mg oral tablet) ??60 mg, By Mouth, Daily Levothyroxine 88 mcg Tablet (levothyroxine 0.088 mg oral tablet) ??88 mcg, By Mouth, Daily Magnesium Hydroxide 8% Susp UD (Milk of Magnesia Liquid) ??30 mL, By Mouth, Once Metoprolol 50 mg XL Tablet (Toprol XL Tablet) ??50 mg, By Mouth, Daily NaCl 0.9% Flush 3ml (NaCL 0.9% Flush) ??3 mL, IV Push, Every 8 hours Pantoprazole 40 mg EC Tablet (pantoprazole 40 mg oral delayed release tablet) ??40 mg, By Mouth, Daily Polyethylene Glycol 17 Gm Powder (MiraLax Powder) ??17 Gm 1 pack/packet, By Mouth, Daily PredniSONE 5 mg Tablet (PredniSONE) ??10 mg, By Mouth, Daily Senna Tablet ??8.6 mg 1 tablet, By Mouth, 2 times a day CONTINUOUS: (0) PRN: (14) Acetaminophen 325 mg Tablet (Acetaminophen Tablet) ??650 mg, By Mouth, Every 6 hours Albuterol/Ipratropium Inhalation Ayana 3mL (Duoneb Inhalation Solution) ??1 vials, BAND Nebulizer, Every 4 hours Bisacodyl 10 mg Suppository (Bisacodyl Supp) ??10 mg 1 supp, Rectally, Daily Dextromethorphan-Guaifenesin 20 mg-200 mg/10 mL Liqu UD (Robitussin DM Liquid) ??10 mL, By Mouth, Every 4 hours Enema Mineral Oil Laxative Adult (Adult Mineral Oil Enema) ??1 each, Rectally, Once Enema Phosphate Laxative Adult 7 g-19 g (Adult Fleet Enema) ??1 each, Rectally, Once Meclizine 12.5 mg Tablet (meclizine 12.5 mg oral tablet) ??25 mg, By Mouth, 3 times a day Melatonin 3 mg Tablet (Melatonin Tablet) ??3 mg, By Mouth, Daily at bedtime NaCl 0.9% Flush 3ml (NaCL 0.9% Flush) ??3 mL, IV Push, Every 8 hours Ondansetron 2mg/mL Inj (2mL Vial) (Zofran Inj) ??4 mg, IV Push Slowly, Every 6 hours Simethicone 80 mg Chewable Tablet (Simethicone Tablet) ??80 mg, Chew, 3 times a day Sodium Chloride 0.65% Nasal [place] (Salinex [place]) ??1 sprays, Nares, Both, 2 times a day Tizanidine 4 mg Tablet (tiZANidine 4 mg oral tablet) ??4 mg, By Mouth, 2 times a day TraMADOL 50 mg Tablet (traMADol 50 mg oral tablet) ??50 mg, By Mouth, Every 12 hours ? Results Recent Labs BLOOD COUNT & DIFF WBC 7.4 k/mm3 ()?? 10/01/2024 05:34 RBC 3.65 m/mm3 (Low)?? 10/01/2024 05:34 Hgb 8.2 Gm/dL (Low)?? 10/01/2024 05:34 Hct 28.9 % (Low)?? 10/01/2024 05:34 MCV 79.2 femtoliters (Low)?? 10/01/2024 05:34 MCH 22.5 pg (Low)?? 10/01/2024 05:34 MCHC 28.4 Gm/dL (Low)?? 10/01/2024 05:34 Platelet Count 311 k/mm3 ()?? 10/01/2024 05:34 RDW-SD 53.1 femtoliters (High)?? 10/01/2024 05:34 MPV 9.1 femtoliters (Low)?? 10/01/2024 05:34 Nucleated RBC (Automated) 0.0 #/100 WBC'S ()?? 10/01/2024 05:34 Abs. NRBC 0.0 k/mm3 ()?? 10/01/2024 05:34 ?? CHEM GENERAL Sodium 143 mmol/L ()?? 10/01/2024 05:34 Potassium 3.6 mmol/L ()?? 10/01/2024 05:34 Chloride 103 mmol/L ()?? 10/01/2024 05:34 Bicarbonate Level 26 mmol/L ()?? 10/01/2024 05:34 Anion Gap 14 mmol/L ()?? 10/01/2024 05:34 Glucose Level 81 mg/dL ()?? 10/01/2024 05:34 BUN 26 mg/dL (High)?? 10/01/2024 05:34 Creatinine-Blood 1.12 mg/dL (High)?? 10/01/2024 05:34 Estimated GFR Creatinine 48 ML/MIN/1.73 M2 ()?? 10/01/2024 05:34 Calcium 9.1 mg/dL ()?? 10/01/2024 05:34 Magnesium 2.2 mg/dL ()?? 09/30/2024 16:58 Vitamin B12 Level 421 pg/mL ()?? 09/30/2024 05:19 Folic Acid Level 10.4 ng/mL ()?? 09/30/2024 05:19 Iron Level 19 mcg/dL (Low)?? 09/30/2024 05:19 Iron Binding Capacity, Unsaturated 262 mcg/dL ()?? 09/30/2024 05:19 Iron Binding Capacity, Estimated Total 281 mcg/dL ()?? 09/30/2024 05:19 % Iron Saturation 7 % (Low)?? 09/30/2024 05:19 Ferritin Level 33 ng/mL ()?? 09/30/2024 05:19 ?? IMMUNOLOGY GENERAL Transferrin 220 mg/dL ()?? 09/30/2024 05:19 ?? URINE OTHER Est Creatinine Clearance 36.44 mL/min ()?? 10/01/2024 06:57 ? Microbiology ?? COVID-19, RSV, and Flu A/B, Rapid PCR?? Completed?? Source: Nasal Body Site: Nose Collected Dt/Tm: 09/29/2024 06:46 Last Updated Dt/Tm: 09/29/2024 07:40 ? Assessment/Plan Assessment:??74-year-old woman with a past medical history significant for of CREST (followed at [facility] by Dr. Monson), hypothyroidism, mitral valve stenosis, heart block s/p PPM, hyperlipidemia, hypothyroidism, hypertension, pulmonary hypertension, pulmonary fibrosis (on prednisone and azathioprine) who presents with shortness of breath??found to have acute hypoxic respiratory failure secondaryto??acute congestive diastolic heart failure??and right-sided heart failure. ?? Constipation (K59.00):??Reports constipation,??upgraded bowel regimen including??with??enemas and??oral??bowel meds.?? Recommend increase ambulation. ?? Elevated troponin (R79.89) ?Associated with??Acute hypoxic respiratory failure (J96.01),??Pulmonary hypertension (I27.20),??Acute on chronic heart failure with preserved ejection fraction (HFpEF) (I50.33),??Mitral stenosis (I05.0),??HTN (hypertension) (I10),??Pacemaker (Z95.0) ? , hemoglobin improved to 8.2.follows pulm closely, states she was using in the past oxygen as needed at home,??never at rest,??presented with shortness of breath worsening, with evidence ofacute hypoxic respiratory failure??secondary to acute??on chronic congestive??diastolic heart failure with also a component from??right??hearted heart failure.??Echocardiogram here shows LVEF of??60 to 65%, with moderate mitral stenosis, mild to moderate mitral regurgitation, and PA pressure of 50 to 55 mmHg.??BNP??2084.??Troponins were??33, 34, 30.??At home takes Lasix 60 mg p.o. daily.?Patien t??follows??with?Aidan from [facility]??center.?Here on regimen with?Lasix 40 mg??IV twice daily??improved, appears to be close to euvolemic today.??Plan: -Appreciate cardiology consultation recommendation,??as recommended by cardiology??we added??Cardizem CD 120 mg daily and discontinued amlodipine.??Continue metoprolol . -daily weight, I+O, 2 gm salt diet -continue with home azathioprine 100 mg daily and prednisone 10 mg daily ?? Hypothyroid (E03.9):??Continue home levothyroxine ?? Anemia (D64.9):??presented with hg of 7.5 and hct??of 26.5 no active bleeding.??Has iron deficiency.??Vitamin B12 and folate normal.??Plan: -Ferrous sulfate 325 mg p.o. twice daily, hemoglobin improved to 8.2 -transfuse for HGB<7 -daily CBC ?? I spent a total of??50?? minutes today reviewing the chart/medical records, speaking with the patient, ??formulating and discussing??the treatment plan, and documenting the findings and encounter.? Discharge Planning:? Estimated Discharge Date ? Note * Phoebe Aguiar RN: PERFORM Event Display: Discharge/Transfer Note Hospital Authored Date: [id number] Nursing Discharge Note Entered On: 10/02/2024 14:29 EST Performed On: 10/02/2024 14:29 EST by Phoebe Aguiar RN Nursing Discharge Note 2 Discharge Time : 10/02/2024 14:25 EST Discharge Level of Care at Discharge : Home/Fpc/Foster Care Patient Left Unit Via : Wheelchair Patient Accompanied Off Unit with : Significant other, Responsible adult DC Instructions Provided & Signed by Pt : Yes Patient Understands D/C Instructions : Yes Patient Instructions Discharge Signed : Yes Did Pt have Specialty Bed or Wound Vac : No Phoebe Aguiar RN - 10/02/2024 14:29 EST * Whit Henderson MD: PERFORM Event Display: Discharge/Transfer Note Hospital Authored Date: [id number] Patient: ??RUDDY LEVINEES ? Age:??74 Years?Sex:??Female?:??1950?? Patient Information Discharge Location: [facility] [place] Primary Care Physician: Don MARION, Hank Benoit Admit Date/Time: 09/29/2024 08:20 Discharge Disposition Discharge Disposition: Home: No Services Discharge Diagnosis Constipation (K59.00) Elevated troponin (R79.89) Hypothyroid (E03.9) Anemia (D64.9) Acute hypoxic respiratory failure (J96.01) Pulmonary hypertension (I27.20) Acute on chronic heart failure with preserved ejection fraction (HFpEF) (I50.33) Mitral stenosis (I05.0) HTN (hypertension) (I10) Pacemaker (Z95.0) _ Discharge Medications Acetaminophen (Tylenol 8 Hour 650 mg oral tablet, extended release)?2?tab(s)?1,300?Milligram?By Mouth?Every 8 hours?as needed?Pain , Mild Atorvastatin (atorvastatin 40 mg oral tablet)?1?tab(s)?40?Milligram?By Mouth?Daily at bedtime Azathioprine (azaTHIOprine 50 mg oral tablet)?2 gccgfk=833 mg?By Mouth?Daily in AM Calcium And Vitamin D Combination (calcium-vitamin D 250 mg-200 intl units oral tablet)?1?tab(s)?By Mouth?2 times a day Dexamethasone / Tobramycin Ophthalmic (dexamethasone-tobramycin 0.1%-0.3% ophthalmic suspension)?1?Drops?Eyes, Both?2 times a day Diltiazem (Cardizem CD 120 mg/24 hours oral capsule, extended release)?120?Milligram?By Mouth?Daily Docusate (docusate sodium 100 mg oral capsule)?100?Milligram?1?capsule?By Mouth?Daily Ferrous Sulfate (ferrous sulfate 325 mg oral enteric coated tablet)?325?Milligram?By Mouth?2 times a day?for 10?Days Furosemide (furosemide 40 mg oral tablet)?40?Milligram?1?tablet?By Mouth?Daily?1.5 tab=60 mg Levothyroxine (levothyroxine 0.088 mg oral tablet)?1?tab(s)?88?Microgram?By Mouth?Daily Meclizine (meclizine 25 mg oral tablet)?1?tab(s)?25?Milligram?By Mouth?3 times a day?PRN Melatonin (melatonin 5 mg oral tablet)?1?tab(s)?5?Milligram?By Mouth?Daily at bedtime Metoprolol (metoprolol 50 mg oral tablet, extended release)?50?Milligram?By Mouth?Daily Naproxen?By Mouth?1 tab?Daily Omeprazole (omeprazole 40 mg oral enteric coated capsule)?1?capsule?40?Milligram?By Mouth?Daily Polyethylene Glycol 3350 (MiraLax oral powder for reconstitution)?17?gram?By Mouth?Daily?as needed?Constipation?dissolve in 4 to 8 oz of beverage PredniSONE (predniSONE 10 mg oral tablet)?10?Milligram?By Mouth?Daily Tizanidine (tiZANidine 4 mg oral capsule)?1?capsule?4?Milligram?By Mouth?2 times a day Tramadol (traMADol 50 mg oral tablet)?1?tab(s)?50?Milligram?By Mouth?Every 12 hours ? Vaccinations and Immunoprophylaxis influenza virus vaccine, inactivated: 0.7 Unknown (07/07/22 07:00:00) influenza virus vaccine, inactivated: 0.5 Unknown (08/26/21 07:00:00) influenza virus vaccine, inactivated: 0.5 Unknown (06/13/20 08:00:00) influenza virus vaccine, inactivated: 0.5 Unknown (07/07/19 07:00:00) influenza virus vaccine, inactivated: 0.5 Unknown (07/15/18 07:00:00) influenza virus vaccine, inactivated: 0.5 Unknown (06/17/16 08:00:00) influenza virus vaccine, inactivated: 999 Unknown (05/16/15 08:00:00) influenza virus vaccine, inactivated: 0.5 Unknown (07/04/14 07:00:00) influenza virus vaccine, inactivated: 999 Unknown (10/27/13 07:00:00) SARS-CoV-2 (COVID-19) mRNA-1273 vaccine: 0.25 Unknown (08/26/21 07:00:00) SARS-CoV-2 (COVID-19) mRNA-1273 vaccine: 0.5 Unknown (12/07/20 08:00:00) SARS-CoV-2 (COVID-19) mRNA-1273 vaccine: 0.5 Unknown (11/09/20 07:00:00) [id number] 12y+ bivalent booster vax: 0.3 Unknown (09/08/22 07:00:00) tetanus-diphtheria toxoids (Td): 999 Unknown (08/31/03 07:00:00) Zoster Vaccine Live: 0.65 Unknown (07/04/14 07:00:00) ?? Medications Started Diltiazem CD 120 mg daily Ferrous Sulfate (ferrous sulfate 325 mg oral enteric coated tablet)?325?Milligram?By Mouth?2 times a day?for 10?Days Polyethylene Glycol 3350 (MiraLax oral powder for reconstitution)?17?gram?By Mouth?Daily?as needed?Constipation?dissolve in 4 to 8 oz of beverage Docusate (docusate sodium 100 mg oral capsule)?100?Milligram?1?capsule?By Mouth?Daily Medications Discontinued None Doses Changed Toprol-XL reduced to 50 mg daily for now Allergies Allergies ?(Active and Proposed Allergies Only) propranolol? (Severity: Unknown severity, Onset: Unknown) codeine? (Severity: Unknown severity, Onset: Unknown) ? Hospital Course 74-year-old woman with a past medical history significant for of CREST (followed at [facility] by Dr. Monson), hypothyroidism, mitral valve stenosis, heart block s/p PPM, hyperlipidemia, hypothyroidism,hypertension, pulmonary hypertension, pulmonary fibrosis (on prednisone and azathioprine) who presents with shortness of breath found to have acute hypoxic respiratory failure secondary to acute congestive diastolic heart failure and right-sided heart failure.??During her hospitalization patient was treated for the following conditions: ? Acute hypoxic respiratory failure (J96.01),??resolved.??Pulmonary hypertension (I27.20), Acute on chronic heart failure with preserved ejection fraction (HFpEF), improved.?(I50.33), Mitral stenosis (I05.0), HTN (hypertension) (I10), Pacemaker (Z95.0). Elevated troponin, likely??increased demand in setting of acute congestive heart failure. ?Patient in the past recommended to use oxygen, however states that??in the last several months she only used it as needed at home, reported shortness of breath that was worsening, and??increased need for using oxygen at home??with exertion, and presented to the emergency room where she met??criteria for acute hypoxic respiratory failure??secondary to acute on chronic congestive diastolic heart failure with also a component from right hearted heart failure. Echocardiogram here showed LVEF of 60 to 65%, with moderate mitral stenosis, mild to moderate mitral regurgitation, and PA pressure of 50 to 55 mmHg. BNP 2085. Troponins were 33, 34, 30, stable without??significant delta, likely??were mildly increased secondary to increased demand from acute congestive heart failure. At home??patient??takes Lasix 60 mg p.o. daily. Patient follows with Dr. Bermudez from [facility].?Patient was placed here on??regimen with??Lasix 40 mg IV twice daily improved,??and over the course of 2 to 3 days she has improved.??She appears euvolemic in the last 36 hours. Patient was evaluated by cardiology, and Dr. Beavers recommended addition of Cardizem CD 120 mg daily,??discontinue amlodipine, and reduced metoprolol XL to 50 mg daily.??Patient has improved, she has no further shortness of breath, leg edema has resolved. She ambulated with PT with??patient and found at baseline, rec ommending no??services on discharge. Additionally patient underwent a home oxygen evaluation today??and she is found stable to be discharged home with no oxygen.??With clinical and hemodynamical stability patient is found appropriate to discharge home??today, with recommendation to continue with home furosemide dose,??new medication??Cardizem 120 mg daily, reduce Toprol-XL to??50 mg daily and amlodipine being discontinued. Otherwise she will continue her home medication, follow-up with her??[facility]Pin 1 week and with her home cardiology in 1 to 2 weeks. ?? History of CREST: Continue with home azathioprine 100 mg daily and prednisone 10 mg daily ? Hypothyroid (E03.9): Continue home levothyroxine ? Anemia (D64.9): presented with hg of 7.5 and hct of 26.5;??there was??no active bleeding. Has iron deficiency. Vitamin B12 and folate normal.?Patient was initiated on ferrous sulfate 325 mg p.o. twice daily, hemoglobin improved to 8.2.?Discharge we recommend patient continues ferrous sulfate??1 tablet twice a day, along with Protonix 40 mg daily. Follow-up with PCP who should continue to monitor her CBC??at their discretion. ?? Constipation (K59.00):??Resolved. Recommend patient continues with??MiraLAX and docusate as needed. ? Objective Measurements?? Height: 160 cm (10/02/24) Weight: 79.3 kg (10/02/24) Dry Weight: 81.6 kg (09/29/24) Body Mass Index:??30.98 kg/m2??Critical (10/02/24) ? Vital Signs?? Temperature: 98.6 DegF (10/02/24 11:27:00) Temperature Route: Oral (10/02/24 11:27:00) Pulse Rate:??96 bpm??High (10/02/24 11:27:00) Respiratory Rate: 18 br/min (10/02/24 11:27:00) Systolic Blood Pressure: 123 mm Hg (10/02/24 11:27:00) Diastolic Blood Pressure: 63 mm Hg (10/02/24 11:27:00) Blood pressure sites: Arm, right (10/02/24 11:27:00) Mean Arterial Pressure: 83 mm Hg (10/02/24 11:27:00) Pulse Pressure: 60 mm Hg (10/02/24 11:27:00) Oxygen Saturation: 94 % (10/02/24 11:27:00) Liters per Minute: 2 L/min (10/02/24 07:24:00) Mode of Delivery (Oxygen): Room air (10/02/24 11:27:00) FiO2: 21 % (10/01/24 15:55:00) Early Warning Score: 2 (10/02/24 11:59:59) ? Mobility & Ambulation Level Mobility & Ambulation Level Activity Assistance: Standby assist (09/30/24) Activity Status ADL: Back to bed, Bedside commode, Up with assistance (09/30/24) Ambulatory devices needed: None (09/29/24) Repositioning: Self (09/30/24) ?? . Physical Exam ?General:??Alert, in no acute cardiopulmonary distress. ?Mental Status:??Oriented to person, place and time. Normal affect. ?Head:??Normocephalic. ?Eyes:??Pupils are equal, round and reactive to light. Extraocular muscles intact. ?Ear, Nose and Throat:??Oropharynx clear, mucous membranes moist. Ears and nose without masses, lesions or deformities. Trachea midline. ?Neck:??Supple, Full range of motion. ?Respiratory:??Clear, improved from prior. ?Cardiovascular:??Heart sounds normal. No thrills. Regular rate and rhythm, 3/6 midsystolic??murmur, best heard on the right parasternal border,??no rubs or gallops. Lower extremity with no??edemabilaterally??improved from prior. ?Gastrointestinal:??Abdomen soft, non-tender, non-distended. Normal bowel sounds. No pulsatile mass. No hepatosplenomegaly. ?Genitourinary:??No costovertebral angle tenderness. ?Neurologic:??Cranial nerves II-XII grossly intact. No focal neurological deficits.?? Moves all extremities spontaneously. Sensation intact bilaterally. ?Skin:??No rashes or lesions. No petechiae or purpura. No edema. ?Musculoskeletal:??No cyanosis or clubbing. No gross deformities. Normal range of motion. _ Pending Results Hold Gel Top Tube ordered on 09/29/2024 Follow-Up Appointments Added Follow Up ?Time Frame ?Comments Don MARION, Hank Benoit?1 ?? Weeks Patient Instructions You were hospitalized for??hypoxia secondary to congestive heart failure, all improved.?? During your hospitalization machine cementer and folder evaluated you and recommended??discontinuation of amlodipine, reduction of metoprolol??to 50 mg daily, and introduced a new medication called Cardizem CD??120 mg,??take1 tablet daily.?? You had an echocardiogram which showed normal pumping ability of the heart,??and moderate valvular abnormalities.?? You were found to have??anemia, with some changes in hemoglobin from your baseline, which improved after we initiated you on iron supplementation. ??Please continue with??ferrous sulfate 1 tablet twice a day, along with Protonix 40 mg daily??at home until you are re evaluated by your primary care provider.?For constipation we recommend that you use MiraLAX and docusate as needed.?? Otherwise continue your home medications. ??Remain on a low-sodium diet. ??Follow-up with your primary care provider in 1 week and with your machine cementer and folder in 1 to 2 weeks.?? For worsening shortness of breath, chest pain, palpitation, lightheadedness, dizziness, blood in the stool, black stools,??or any other significant concerns please seek immediate medical care. Post Discharge Care Diet: ??Cardiac diet ?? Discharge ?10/02/24 13:31:00 EST ?Order Comment:?? Discharge Prescriptions ?ePrescribed, 10/02/24 13:31:00 EST ?Order Comment:?? Home Health Face to Face ^HomeHealthFTF Results Discharge Labs BLOOD COUNT & DIFF WBC 8.6 k/mm3 ()?? 10/02/2024 05:37 RBC 3.69 m/mm3 (Low)?? 10/02/2024 05:37 Hgb 8.2 Gm/dL (Low)?? 10/02/2024 05:37 Hct 29.0 % (Low)?? 10/02/2024 05:37 MCV 78.6 femtoliters (Low)?? 10/02/2024 05:37 MCH 22.2 pg (Low)?? 10/02/2024 05:37 MCHC 28.3 Gm/dL (Low)?? 10/02/2024 05:37 Platelet Count 356 k/mm3 ()?? 10/02/2024 05:37 RDW-SD 51.7 femtoliters (High)?? 10/02/2024 05:37 MPV 9.1 femtoliters (Low)?? 10/02/2024 05:37 Nucleated RBC (Automated) 0.0 #/100 WBC'S ()?? 10/02/2024 05:37 Abs. NRBC 0.0 k/mm3 ()?? 10/02/2024 05:37 Abs. Neut 10.3 k/mm3 (High)?? 09/29/2024 07:04 Abs. Lymph 0.7 k/mm3 (Low)?? 09/29/2024 07:[address] [place] 1.2 k/mm3 (High)?? 09/29/2024 07:04 Abs. Eo 0.2 k/mm3 ()?? 09/29/2024 07:04 Abs. Baso 0.0 k/mm3 ()?? 09/29/2024 07:04 Neut % 82.3 % (High)?? 09/29/2024 07:04 Lymph % 5.7 % (Low)?? 09/29/2024 07:04 [place] % 9.6 % ()?? 09/29/2024 07:04 Eos % 1.2 % ()?? 09/29/2024 07:04 Baso % 0.2 % ()?? 09/29/2024 07:04 Imm Gran 1.0 % ()?? 09/29/2024 07:04 Abs. Imm Gran 0.1 k/mm3 ()?? 09/29/2024 07:04 ?? CARDIAC Nt-Probnp 2085 pg/mL (High)?? 09/29/2024 07:04 High Sensitivity Troponin (HSTnT) 30 ng/L (High)?? 09/29/2024 11:00 ?? CHEM GENERAL Sodium 141 mmol/L ()?? 10/02/2024 05:37 Potassium 4.2 mmol/L ()?? 10/02/2024 05:37 Chloride 104 mmol/L ()?? 10/02/2024 05:37 Bicarbonate Level 27 mmol/L ()?? 10/02/2024 05:37 Anion Gap 10 mmol/L ()?? 10/02/2024 05:37 Glucose Level 91 mg/dL ()?? 10/02/2024 05:37 BUN 23 mg/dL ()?? 10/02/2024 05:37 Creatinine-Blood 0.94 mg/dL ()?? 10/02/2024 05:37 Estimated GFR Creatinine 60 ML/MIN/1.73 M2 ()?? 10/02/2024 05:37 Calcium 9.1 mg/dL ()?? 10/02/2024 05:37 Magnesium 2.2 mg/dL ()?? 09/30/2024 16:58 Vitamin B12 Level 421 pg/mL ()?? 09/30/2024 05:19 Folic Acid Level 10.4 ng/mL ()?? 09/30/2024 05:19 Iron Level 19 mcg/dL (Low)?? 09/30/2024 05:19 Iron Binding Capacity, Unsaturated 262 mcg/dL ()?? 09/30/2024 05:19 Iron Binding Capacity, Estimated Total 281 mcg/dL ()?? 09/30/2024 05:19 % Iron Saturation 7 % (Low)?? 09/30/2024 05:19 Ferritin Level 33 ng/mL ()?? 09/30/2024 05:19 ?? COAG D-Dimer 0.67 mg/L FEU ()?? 09/29/2024 07:04 ? FLUID STUDIES Hold Other SPECIMEN DISCARDED AFTER 1 WEEK ()?? 09/29/2024 07:04 ? HEME OTHER Hold Blue Top SPECIMEN DISCARDED AFTER 4 HOURS. ()?? 09/29/2024 07:04 ? IMMUNOLOGY GENERAL Transferrin 220 mg/dL ()?? 09/30/2024 05:19 ? URINE OTHER Est Creatinine Clearance 43.42 mL/min ()?? 10/02/2024 06:59 ? VIROLOGY Influenza A PCR NEGATIVE ()?? 09/29/2024 06:46 Influenza B PCR NEGATIVE ()?? 09/29/2024 06:46 RSV PCR NEGATIVE ()?? 09/29/2024 06:46 COVID-19 PCR Specimen Source NASAL ()?? 09/29/2024 06:46 COVID-19 PCR Result NEGATIVE ()?? 09/29/2024 06:46 ? Blood Glucose Trend Glucose Level: 91 mg/dL (10/02/24 05:37:00) ? Microbiology ?? COVID-19, RSV, and Flu A/B, Rapid PCR?? Completed?? Source: Nasal Body Site: Nose Collected Dt/Tm: 09/29/2024 06:46 Last Updated Dt/Tm: 09/29/2024 07:40 ? Image ?XR Chest 2 Views Frontal and Lat??09/29/2024 08:16 by Jaja Sheffield ?IMPRESSION: 1. Mild unchanged chronic cardiomegaly, increased now moderate pulmonary venous hypertension, mild possibly chronic interstitial and moderate new alveolar pulmonary edema asdetailed above. No pleural effusions. 2. Intact dual pacemaker. 3. Areas of calcific tendinopathy of bursitis bilateral shoulders. Soft tissue calcification proximal LEFT arm exact etiology unknown. 4 . Significant calcifications of the axillary arteries bilaterally. ?Echo Complete??09/30/2024 09:34 by Lulu Beavers MD ?Summary The left ventricular size is normal. The left ventricular wall thickness is upper normal. The LV systolic function is normal . The left ventricular ejection fraction is 60-65 %.There are no definite regional wall motion abnormalities. Unable to assess diastolic function due to severe mitral annulus calcification . The right ventricular size and function appears grossly normal. A pacer/ICD wire is seen in the right ventricle. The aortic valve is trileaflet and mildly thickened and calcified. There is no significant aortic stenosis or insufficiency. There is severe mitralannular calcification. The mitral valve appears mildly thickened. There is at least moderate mitralstenosis with a mean gradient of 9mmHg at 90bpm. There is mild to moderate mitral regurgitation. The tricuspid valve appears normal . There is mild tricuspid valve regurgitation. The inferior vena cava appears normal. The pulmonary artery systolic pressure estimation is moderately elevated at 50-55mmHg. Comparison Comparison is made to the study of December 18, 2023. At least moderate mitral stenosis and mild to moderate mitral regurgitation are now apparent. A pacemaker is visualized in right atrium and right ventricle. Moderate pulmonary hypertension is now apparent. ?? Consult ?Cardiology Consult Note??09/30/2024 11:54 by Lulu Beavers MD ?Assessment/Plan 1.??Acute on chronic heart failure with preserved ejection fraction (HFpEF) ?This could be secondary to??a combination of increased heart rate??in the setting of mitral stenosis??following the institution of sildenafil,??salt indiscretion.??Benefit from??dietary educationregarding salt intake.??Control of heart rate??would be optimal??to prolong diastolic filling time??given her mitral stenosis.??I would recommend starting diltiazem CD1 120 mg daily??in addition to her metoprolol 50 mg twice daily.??She may do better with the twice daily regimen of furosemide. 2.??Mitral stenosis ?Transesophageal echo this appears to be??mild to moderate,??but more significant by cardiac catheterization and transthoracic echo.??Control of heart rate??is important to prolong diastolic filling time as above.??Followed by Dr. Bermudez 3.??Pacemaker ?The pacemaker appears to be functioning normally 4.??HTN (hypertension) ?As abovie, would discontinue amlodipine and start diltiazem CD 120mg daily Acute hypoxic respiratory failure (Provisional) Anemia Decompensated heart failure (Provisional) HLD (hyperlipidemia) Hypothyroid Pulmonary hypertension ?Other Consult ?Home oxygen evaluation 10/02/2024 Home Oxygen Recommendations At Rest Oxygen recommendations at rest: room air.? Home Oxygen Recommendations On Ambulation Oxygen recommendations on ambulation:: room air.?? Recommendation comment??Recommend ear probe for future pulse oximetry. 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 40 minutes spent on discharge * Phoebe Aguiar RN: PERFORM Event Display: Patient Education/Instruction Authored Date: [id number] Inpatient [place] [address] Name: DARNELL LEVINE : 1950?? Visit: 09/29/2024 08:20?? Current Date: 10/02/2024 13:40 ?? Account: [id number]?? Inpatient Adult Discharge Instructions We would like to thank you for allowing us to assist you with your healthcare needs. The following includes patient education materials and information regarding your injury/illness. Our entire staffstrives to provide an excellent experience for our patients and their families. PLEASE ENSURE YOU FOLLOW-UP PER THE INSTRUCTIONS BELOW! ?? YOUR OPINION IS IMPORTANT TO US! Please complete the survey you may receive by mail or email. Your feedback will be used to make improvements to the healthcare experiences of our patients and their families. Surveys are administered by [employer] ?? If further treatment with your primary care physician or another doctor is recommended, it is important for you to keep the appointment. Call your primary care physician or return to the Emergency Department immediately if your condition worsens, fails to improve, or new symptoms develop. If you need to find a doctor, you can call [facility] [employer] Link for a referral at [phone] or toll free at [phone] or log in to [email or web address].. ?? [facility], in keeping with [facility] guidance, no longer requires face masks for staff, patientsor visitors in most situations. Similiar to time spent indoors at other locations, there is the chance that you were exposed to repiratory viruses during your time with us (such as flu or COVID-19). If you develop symptoms concerning for a viral respiratory infection, please seek testing (and treatment if indicated) from your medical provider or home test kit. ?? You can view and manage your care through the patient portal or by using a health care dianelys of your choosing. [employer] is a website that allows you to securely view your medical information including your hospital discharge summary, office visit summaries, medications and follow-up visits. You can also request appointments, renew medications, and request access to your medical information using a health care dianelys of your choosing, or just ask a question. You can enroll at [email or web address] or register during your next office visit. You have been discharged from [facility], Patient Care Unit: [id number]??. If you have any questions regarding these instructions, including results of studies pending, afteryou leave, please call us and we will be happy to assist you 23/03. [facility] Your Care Team Attending Physician Whit Henderson MD?? Consulting Providers Whit Henderson MD?? Discharging Providers Whit Henderson MD Reason for Your Visit BERNIE?? Your Diagnosis Acute on chronic heart failure with preserved ejection fraction (HFpEF) Mitral stenosis Pacemaker HTN (hypertension) Anemia Constipation Elevated troponin Hypothyroid Pulmonary hypertension Tests Performed Below is a partial list of the tests performed during your hospitalization. You may have had other tests and procedures not included in this list. Please discuss all test results with your provider. B12 Vitamin Level Basic Metabolic Panel BUN Calcium Level CBC CBC w/ Differential COVID-19, RSV, and Flu A/B, Rapid PCR Creatinine D Dimer Electrolytes Ferritin Folate Level Glucose Level High??Sensitivity??Troponin T HOLD BLUE TUBE HOLD OTHER TUBE Iron + Iron Binding Capacity Lytes Magnesium Level ProBNP Transferrin XR Chest 2 Views Frontal and Lat B Type Natriuretic Peptide (NT-proBNP) (ProBNP)?? BUN?? Basic Metabolic Panel?? CBC?? CBC w/ Differential?? COVID-19, RSV, and Flu A/B, Rapid PCR?? Calcium Level?? Creatinine?? D Dimer?? Electrolytes (Lytes)?? Ferritin?? Folate Level?? Glucose Level?? High??Sensitivity??Troponin T?? Hold Blue Top Tube (HOLD BLUE TUBE)?? Hold Gel Top Tube (HOLD GEL TUBE)?? Hold Other Tube?? Iron + Iron Binding Capacity?? Magnesium Level?? Transferrin?? Vitamin B12 Level (B12 Vitamin Level)?? Chest 2 Views Frontal and Lat (XR Chest 2 Views Frontal and Lat)?? Primary Care Provider Hank Ochoa MD? Advance Directive Health Care Proxy on File Yes - Health Care Proxy Discharge Vitals Temperature: 98.6 DegF Height: 160 cm Pulse Rate:??96 bpm??High Weight: 79.3 kg Respiratory Rate: 18 br/min Body Mass Index:??30.98 kg/m2??Critical Systolic Blood Pressure: 123 mm Hg Body surface area: 1.88 Diastolic Blood Pressure: 63 mm Hg ?? Oxygen Saturation: 94 % ?? Studies Pending All studies ordered during this hospital stay have been completed unless listed below. Please discuss all pending results with your provider listed above in these instructions. ?? Hold Gel Top Tube (HOLD GEL TUBE)?? What to do next Instructions From Your Doctor You were hospitalized for??hypoxia secondary to congestive heart failure, all improved.?? During your hospitalization machine cementer and folder evaluated you and recommended??a new medication called Cardizem CD??120 mg,??take 1 tablet daily.?Your Toprol-XL is reduced to 50 mg daily.?? You had an echocardiogram which showed normal pumping ability of the heart,??and moderate valvular abnormalities.?? You were found to have??anemia, with some changes in hemoglobin from your baseline, which improved after weinitiated you on iron supplementation. ??Please continue with??ferrous sulfate 1 tablet twice a day, at??home until you are reevaluated by your primary care provider.?For constipation we recommendthat you use MiraLAX and docusate as needed.?? Otherwise continue your home medications. ??Remain on a low-sodium diet. ??Follow-up with your primary care provider in 1 week and with your machine cementer and folder in 1 to 2 weeks.?? For worsening shortness of breath, chest pain, palpitation, lightheadedness, dizziness, blood in the stool, black stools,??or any other significant concerns please seek immediate medical care. ?? Orders??:Cardiac diet? 10/02/24 13:31:00 EST?? Prescriptions??, ??10/02/24 13:31:00 EST?? You Need to Schedule the Following Appointments Follow Up with??Don MARION, Hank Benoit When:??In 1 week Why: Patient needs to call and make a hospital follow up Where: [address] [place] [address]- Discharge Medications CRISTINABakariDARNELL :1950 Visit Date:09/29/2024 Medications: Please continue your medications until treatment is completed or stopped by your provider. Medications not listed below should be discontinued. Discuss any questions related to medications with your provider. What How Much When Instructions Next Dose New Diltiazem (Cardizem CD 120 mg/ 24 hours oral capsule,extended release) 120 Milligram Oral Daily Pickup at [facility] #[id number] 10/03 9 AM New Docusate (docusate sodium 100 mg oral capsule) 1 capsule Oral Daily Pickup at [facility] #[id number] 10/03 9 AM New Ferrous Sulfate (ferrous sulfate 325 mg oral enteric coated tablet) 325 Milligram Oral Twice a day Duration: 10 Days Pickup at [facility] #[id number] 10/02 9 PM New Polyethylene Glycol 3350 (MiraLax oral powder for reconstitution) 17 gram Oral Daily as needed for Constipation dissolve in 4 to 8 oz of beverage ?? Pickup at [facility] #[id number] As needed Changed Metoprolol (metoprolol 50 mg oral tablet, extended release) 50 Milligram Oral Daily 10/03 9 AM Changed PredniSONE (predniSONE 10 mg oral tablet) 10 Milligram Oral Daily 10/03 9 AM Unchanged Acetaminophen (Tylenol 8 Hour 650 mg oral tablet, extended release) 2 tab(s) Oral Every 8 hours as needed for Pain , Mild As needed Unchanged Atorvastatin (atorvastatin 40 mg oral tablet) 1 tab(s) Oral Daily at Bedtime 10/02 9 PM Unchanged Azathioprine (azaTHIOprine 50 mg oral tablet) 2 rhwchs=320 mg Oral Daily in the morning 10/03 9 AM Unchanged Calcium And Vitamin D Combination (calcium-vitamin D 250 mg-200 intl units oral tablet) 1 tab(s) Oral Twice a day 10/02 9 AM Unchanged Dexamethasone / Tobramycin Ophthalmic (dexamethasone-tobramycin 0.1%- 0.3% ophthalmic suspension) 1 Drops Both eyes Twice a day 10/02 9 AM Unchanged Furosemide (furosemide 40 mg oral tablet) 1.5 tab=60 mg Oral Daily 10/02 9 AM Unchanged Levothyroxine (levothyroxine 0.088 mg oral tablet) 1 tab(s) Oral Daily 10/02 7 AM Unchanged Meclizine (meclizine 25 mg oral tablet) 1 tab(s) Oral 3 times a day PRN ?? 10/02 5 PM Unchanged Melatonin (melatonin 5 mg oral tablet) 1 tab(s) Oral Daily at Bedtime 10/02 9 PM Unchanged Naproxen 1 tab Oral Daily 10/03 9 AM Unchanged Omeprazole (omeprazole 40 mg oral enteric coated capsule) 1 capsule Oral Daily 10/03 9 AM Unchanged Tizanidine (tiZANidine 4 mg oral capsule) 1 capsule Oral Twice a day 10/02 9 PM Unchanged Tramadol (traMADol 50 mg oral tablet) 1 tab(s) Oral Every 12 hours 10/02 9 PM Pharmacy Information [facility] #[id number]: [address], [place] [id number] [phone] ?? What How Much When Comments Stop Taking Loratadine (loratadine 10 mg oral tablet) 1 tab(s) Oral Daily Stop Taking Magnesium Oxide (magnesium oxide 200 mg oral tablet) 1 tab(s) Oral Daily Stop Taking Sildenafil (sildenafil 20 mg oral tablet) 1 tab(s) Oral 3 times a day Prescription Given During Visit Diltiazem (Cardizem CD 120 mg/24 hours oral capsule, extended release) - 120 mg, By Mouth, Daily, #30 tablet, 0 Refills, [facility] #[id number], [address] [place] [address] [phone]?? Docusate (docusate sodium 100 mg oral capsule) - 1 capsule = 100 mg, By Mouth, Daily, # 30 capsule,0 Refills, [facility] #[id number], [address] [place] [phone]?? Ferrous Sulfate (ferrous sulfate 325 mg oral enteric coated tablet) - 325 mg, By Mouth, 2 times a day, # 20 tablet, 0 Refills, [facility] #[id number], [address] [place] [address] [phone]?? Polyethylene Glycol 3350 (MiraLax oral powder for reconstitution) - 17 Gm, By Mouth, Daily, # 123 Gm, 0 Refills, dissolve in 4 to 8 oz of beverage, [facility] #[id number], [address] [place] [phone]?? Laboratory Results Below is a partial list of the most recent Laboratory test results done prior to this discharge. You may have had other tests and procedures not included in this list. Please discuss all test resultswith your provider. Est Creatinine Clearance - 43.42 mL/min (10/02/2024) B12 Vitamin Level (09/30/2024) ???Vitamin B12 Level - 421 pg/mL Basic Metabolic Panel (10/02/2024) ???Sodium - 141 mmol/L???Potassium - 4.2 mmol/L???Chloride - 104 mmol/L???Bicarbonate Level - 27 mmol/L???Anion Gap - 10 mmol/L???Glucose Level - 91 mg/dL???BUN - 23 mg/dL???Creatinine-Blood - 0.94 mg/dL???Estimated GFR Creatinine - 60 ML/MIN/1.73 M2???Calcium - 9.1 mg/dL BUN (09/30/2024) ???BUN - 17 mg/dL Calcium Level (09/30/2024) ???Calcium - 9.1 mg/dL CBC (10/02/2024) ???WBC - 8.6 k/mm3???RBC - 3.69 m/mm3???Hgb - 8.2 Gm/dL???Hct - 29.0 %???MCV - 78.6 femtoliters???MCH - 22.2 pg???MCHC - 28.3 Gm/dL???Platelet Count - 356 k/mm3???RDW-SD - 51.7 femtoliters???MPV - 9.1 femtoliters???Nucleated RBC (Automated) - 0.0 #/100 WBC'S???Abs. NRBC - 0.0 k/mm3 CBC w/ Differential (09/29/2024) ???WBC - 12.6 k/mm3???RBC - 3.34 m/mm3???Hgb - 7.5 Gm/dL???Hct - 26.5 %???MCV - 79.3 femtoliters???MCH - 22.5 pg???MCHC - 28.3 Gm/dL???Platelet Count - 273 k/mm3???RDW-SD - 53.5 femtoliters???MPV - 8.7 femtoliters???Nucleated RBC (Automated) - 0.0 #/100 WBC'S???Abs. NRBC - 0.0 k/mm3???Abs. Neut - 10.3 k/mm3???Abs. Lymph - 0.7 k/mm3???Abs. [place] - 1.2 k/mm3???Abs. Eo - 0.2 k/mm3???Abs. Baso - 0.0 k/mm3???Neut % - 82.3 %???Lymph % - 5.7 %???[place] % - 9.6 %???Eos % - 1.2 %???Baso % - 0.2 %???Imm Gran - 1.0 %???Abs. Imm Gran - 0.1 k/mm3 COVID-19, RSV, and Flu A/B, Rapid PCR (09/29/2024) ???Influenza A PCR - NEGATIVE???Influenza B PCR - NEGATIVE???RSV PCR - NEGATIVE???COVID-19 PCR Specimen Source - NASAL???COVID-19 PCR Result - NEGATIVE Creatinine (09/30/2024) ???Creatinine-Blood - 0.76 mg/dL???Estimated GFR Creatinine - 77 ML/MIN/1.73 M2 D Dimer (09/29/2024) ???D-Dimer - 0.67 mg/L FEU Electrolytes (09/30/2024) ???Sodium - 143 mmol/L???Potassium - 3.3 mmol/L???Chloride - 105 mmol/L???Bicarbonate Level - 28 mmol/L???Anion Gap - 10 mmol/L Ferritin (09/30/2024) ???Ferritin Level - 33 ng/mL Folate Level (09/30/2024) ???Folic Acid Level - 10.4 ng/mL Glucose Level (09/30/2024) ???Glucose Level - 102 mg/dL High??Sensitivity??Troponin T (09/29/2024) ???High Sensitivity Troponin (HSTnT) - 30 ng/L HOLD BLUE TUBE (09/29/2024) ???Hold Blue Top - SPECIMEN DISCARDED AFTER 4 HOURS. HOLD OTHER TUBE (09/29/2024) ???Hold Other - SPECIMEN DISCARDED AFTER 1 WEEK Iron + Iron Binding Capacity (09/30/2024) ???Iron Level - 19 mcg/dL???Iron Binding Capacity, Unsaturated - 262 mcg/dL???Iron Binding Capacity, Estimated Total - 281 mcg/dL???% Iron Saturation - 7 % Lytes (09/30/2024) ???Sodium - 143 mmol/L???Potassium - 4.0 mmol/L???Chloride - 103 mmol/L???Bicarbonate Level - 27 mmol/L???Anion Gap - 13 mmol/L Magnesium Level (09/30/2024) ???Magnesium - 2.2 mg/dL ProBNP (09/29/2024) ???Nt-Probnp - 2085 pg/mL Transferrin (09/30/2024) ???Transferrin - 220 mg/dL You will be contacted within 72 hours with your results. Allergies (NKA means No Known Allergies) codeine propranolol Problems Active Problems??(6) , 2, termination 1?? Hypertension?? Hypothyroidism?? LEEP 1998?? Menopause?? Obese class I?? Education Materials Below is the list of Educational Leaflet Providered with your Discharge Instructions. Valuables and Belongings I fully understand and agree that [facility] accepts no responsibility for all my personal property including clothing, toilet articles, radios, jewelry, dentures, hearing aids, rings, money, or any other property that is in my possession or is brought to me after admission. I understand certain valuables may be placed in a hospital safe for a short period of time. I understand that the hospital is not liable for loss or damage due to accident, fire, or other natural occurrence while said property is in the safe. I accept full responsibility for any personal property that I keep with me, and will not hold the hospital responsible in case of loss or disappearance. I acknowledge that i have been encouraged to send valuables and belongings home. ?? Review of Valuable and Belonging List: With patient Date for Pt to Sign Valuables/Belongings: 09/29/24 12:12:00 ?? Other Discharge Information ? Pulmonary Rehab Status?? Pulmonary Rehab Discharge Status?? Respiratory Rate: 18 br/min ? Common Emergency Awareness Tips IS IT A STROKE? Act FAST and Check for these signs: FACE Does the face look uneven? ARM Does one arm drift down? SPEECH Does their speech sound strange? TIME Call at any sign of stroke ?? Heart Attack Signs Chest discomfort: Most heart attacks involve discomfort in the center of the chest and lasts more than a few minutes, or goes away and comes back. It can feel like uncomfortable pressure, squeezing, fullness or pain. Discomfort in upper body: Symptoms can include pain or discomfort in one or both arms, back, neck, jaw or stomach. Shortness of breath: With or without discomfort. Other signs: Breaking out in a cold sweat, nausea, or lightheaded. Remember, MINUTES DO MATTER. If you experience any of these heart attack warning signs, call to get immediate medical attention! ?? Smoking can increase your chances of developing chronic health problems and can cause harmful effects to other family members in your house. If you smoke, you are strongly encouraged to quit. Please call [facility] [employer] Link at [phone] or [phone] ([phone]) or log in to [email or web address] for referrals to smoking cessation programs. ?? 194 Suicide & Crisis Lifeline is available 23/03 if you or someone you know needs to find a reason to keep living. By calling 347 you'll be connected to a skilled, trained counselor at a crisis center in your area. INPATIENT DISCHARGE INSTRUCTIONS SIGNATURE PAGE DARNELL LEVINE Location:[facility] Registration Date and Time:09/29/2024 08:20 EST Primary Care Physician: Don MARION, Hank Benoit, Attending Physician: Santiago MARION, Whit Ortiz, I DARNELL LEVINE, have received the above patient education materials/instructions and have verbalized understanding. If ambulance or transport services are being used I further acknowledge being given a choice of service. ?? If you need to contact me, please call me at this number: . Patient/Customer Success Specialist Name: Patient/Customer Success Specialist Signature: Relationship to Patient: Witness Name/Signature: Date: * Lexy Miranda: PERFORM, SIGN, VERIFY Event Display: Patient Education Handout Authored Date: Patient Care team information Care Team Personnel Name: Lazara Cowan RN [facility] RN Member Role: Primary Care Nurse Name: Jud Ochoa Position[facility] RN Supv Member Role: Primary Care Nurse Name: Kris Leigh MD Position[facility] Physician (General Medicine) Member Role: Lifetime Consulting Physician Address: [address] [place], [place] [id number]- Telecom: Name: Oly Garcia RN Position[facility] RN Member Role: Primary Care Nurse Name: Doyle Pacheco RN Position[facility] RN Member Role: Primary Care Nurse Name: Monik Betancourt Position[facility] Outreach Member Role: Lifetime Consulting Physician Name: Yoly Carr RN Position[facility] RN Member Role: Primary Care Nurse Name: Sally Peres RN Position: [facility] ED RN W/OE and Tasks Member Role: Primary Care Nurse Name: Michel Olivera RN Position[facility] RN Member Role: Primary Care Nurse Name: Jacqui Alcala RN Position[facility] RN Member Role: Primary Care Nurse Name: Lavinia Nagy RN Position[facility] RN Member Role: Primary Care Nurse Name: Hank Ochoa MD Position: Reference Physician Member Role: PCP Address: [address] [place] [address]- Telecom: Care Team Related Persons Name: GRACIELA FELIZ Insurance Providers Guarantor name: DARNELL LEVINE Health Plan Information #: 3 Payer: [employer] Member Number: [id number] Policy Number: NA Group Number: [id number] Health Plan Information #: 4 Payer: [facility] Member Number: [id number] Policy Number: NA Group Number: [id number] Health Plan Information #: 1 Payer: MEDICARE A INPT 25 Member Number: [id number] Policy Number: NA Group Number: NA Health Plan Information #: 2 Payer: MEDICARE PART B OUTPT Member Number: [id number] Policy Number: NA Group Number: NA
--- OUTSIDE RECORDS SUMMARY | 2024-10-04 11:35 | XMS_ITS | Data Portability ---
Author Organization [facility], [facility] Address [address] [place] [address] Care Team Providers Care Snath Handle Assembler Name Role Phone JYOTHI CLOUD Phys. Med. & Rehab LESLI LEIGH Athletic Equipment Custodian Assessment Encounter Date Assessment Date Assessment LastModified [...] symptoms. R sided BPPV has resolved and [place]-Hallpike is negative. She has slight symptoms when testing the L. These are less intense and at this time, pt feels that they are not limiting her function. Left side was treated today with ELECTRICAL UNIT REBUILDER. Pt prefers to D/C despite positive findings on the L and will return if these symptoms should pose any restrictions in her function. D/C PT rbucala Not available 05/07/2022 07:57:01 04/03/2023 04/03/2023 IE 04/03/2309/09 Plan: 1 x/week up to 10 visits over 12 weeks Plan to use CPT codes: 24096 Therapeutic Exercise 91452 Neuromuscular ReEducation 86560 Manual 75393 Therapeutic Activity A: Dolly is a 72 [...] Treatments may include (as appropriate/as indicated): Therapeutic exercise(07608)/Ne uromuscular Reeducation (25217)/Manual Therapy (74484)/Therapeuti c Activities (40816)/Self-care management(15193)/ Attended Electrical Stimulation (47486)/PRN modalities/dry needling/Gait Training (85221)/canalith repositioning(9599 2) [email or web address] Not available 01/26/2024 14:35:58 01/28/2024 01/28/2024 Plan: [...] Treatments may include (as appropriate/as indicated): Therapeutic exercise(47323)/Ne uromuscular Reeducation (49519)/Manual Therapy (40168)/Therapeuti c Activities (39117)/Self-care management(13549)/ Attended Electrical Stimulation (28794)/PRN modalities/dry needling/Gait Training (23014)/canalith repositioning(9599 2) Not available 01/28/2024 16:25:25 Plan of Treatment [...] mammog lily (C-vie w) images are genera dasiha. Images review ed with a CAD system [...] g Physic hernando: Mary Ann Oliver ms [facility] (Imaging) [address], [place], [address], 08/01/2022 10:24:55 Result Notes None recorded. Problems Name Problem SNOMED Code Status Onset Date Resolution Date Notes Provider Name and Address Organization Details Recorded Time Measuremen t finding outside reference range 069332924 Completed 07/20/2013 Not Available [facility] 3 02:03:25 Benign essential hypertensi on 6648197 Active Sonia tabares, [facility] 6 08:43:18 Multiple joint pain 43406023 Completed 07/20/2013 Not Available [facility] 3 02:02:27 Primary fibromyalg ia syndrome 35834427 Active Not Available [facility] 3 03:15:35 Posterior rhinorrhea 91574328 Completed 12/25/2016 Peace Ruano NP [address] [place] [address], [address] , [facility] 7 13:02:33 Dizziness 704759576 Completed 07/20/2013 Not Available [facility] 3 02:02:09 Raynaud's disease 778685463 Completed 12/25/2016 Peace Ruano NP [address] [place] [address], [address] , [facility] 7 13:02:22 Limited systemic sclerosis 586393746 Active Lesli Leigh MD [address] [place] [address], [address] , [facility] 6 08:40:52 Paronychia 76745379 Completed 12/25/2016 Peace Ruano NP [address] [place] [address], [address] , [facility] 7 13:02:26 Finger ulcer 173290605 Completed 12/25/2016 Peace Ruano NP [address] [place] [address], [address] , [facility] 7 13:02:28 Raynaud's phenomenon 259652973 Active Lesli Leigh MD [address] [place] [address], [address] , [facility] 6 08:40:52 Benign paroxysmal positional vertigo 892166020 Active 2017 Peace Ruano NP [address] [place] [address], [address] , [facility] 8 13:35:50 Problem Notes None recorded. Procedures Surgical History Date Name Laterality Status Provider Name and Address Organization Details Recorded Time 01/28/20 24 Neuromuscular re-education completed SHANTAL LIN, PT [address] [place], [address], [facility] 01/28/2024 16:24:21 01/28/20 24 Treatment and Advice completed SHANTAL LIN, PT [address] [place] [address], [address], [facility] 01/28/2024 16:11:11 01/26/20 24 Physical Activity Counselling completed SHANTAL LIN, PT [address] [place], [address], [facility] 01/26/2024 11:19:50 01/26/20 24 69151: PT Eval Low Complexity completed SHANTAL LIN, PT [address] [place] [address], [address], [facility] 01/26/2024 11:19:54 01/26/20 24 Treatment and Advice completed SHANTAL LIN, PT [address] [place], [address], [facility] 01/26/2024 11:41:10 04/03/20 23 Smoking Cessation Counselling completed Jyothi Cloud, PT [address] [place], [address], [facility] 04/03/2023 11:46:14 04/03/20 23 Physical Activity Counselling completed Jyothi Cloud, PT [address] [place], [address], [facility] 04/02/2023 16:34:25 04/03/20 23 75132: PT Eval Low Complexity completed Jyothi Cloud, PT [address] [place], [address], [facility] 04/02/2023 16:34:25 04/03/20 23 Treatment and Advice completed Jyothi Cloud, PT [address] [place], [address], [facility] 04/03/2023 15:01:47 04/28/20 22 Physical Activity Counselling completed Joanna Thurman, PT [address] [place], [address], [facility] 04/28/2022 11:56:57 11/27/19 22 Physical Activity Counselling completed Joanna Thurman, PT [address] [place], [address], [facility] 11/26/2021 09:01:22 01/01/20 19 Medicare Wellness Visit completed Lenora Johnson [facility] 12/31/2018 09:30:08 12/24/19 19 Toenail Avulsion completed Georgina Joshi, DPOpal [address] [place], [address], [facility] 12/24/2018 07:47:50 11/26/19 19 Physical Activity Counselling completed Joanna Thurman, PT [address] [place], [address], [facility] 11/26/2018 08:09:43 07/12/20 18 Physical Activity Counselling completed Joanna Thurman, PT [address] [place] [address], [address], [facility] 07/12/2018 16:58:41 03/10/20 18 Physical Activity Counselling [place], [address], [facility] 03/11/2018 07:19:23 03/10/20 18 54501: PT Eval, Moderate Complexity [place], [address], [facility] 03/11/2018 07:19:32 12/30/19 18 Medicare Wellness Visit completed Annie Renteria [facility] 12/29/2017 13:21:17 11/12/19 18 Physical Activity Counselling completed Che Woods [address] [place] [address], [address], [facility] 11/11/2017 13:04:00 11/12/19 18 26593: PT Eval [place], [address], [facility] 11/11/2017 13:04:00 07/21/20 17 Physical Activity Counselling [place], [address], [facility] 07/21/2017 19:51:12 07/21/20 17 10718: PT Eval Low Complexity [place], [address], [facility] 07/21/2017 19:51:12 12/27/19 17 86955: Therapeutic Exercise completed Jyothi Cloud, PT [address] [place], [address], [facility] 12/26/2016 13:14:34 12/27/19 17 28455: Ultrasound (1:1) completed Jyothi Cloud, PT [address] [place], [address], [facility] 12/26/2016 13:14:34 12/24/19 17 02822: Therapeutic Exercise completed Jyothi Cloud, PT [address] [place], [address], [facility] 12/23/2016 13:48:37 12/24/19 17 92736: Ultrasound (1:1) completed Jyothi Cloud, PT [address] [place], [address], [facility] 12/23/2016 13:48:21 12/17/19 17 96453: Therapeutic Exercise completed Jyothi Cloud, PT [address] [place], [address], [facility] 12/16/2016 22:06:28 11/27/19 17 Physical Activity Counselling completed Jyothi Cloud, PT [address] [place], [address], [facility] 11/26/2016 10:36:36 11/27/19 17 44575: PT Eval, Moderate Complexity completed Jyothi Cloud, PT [address] [place], [address], [facility] 11/26/2016 21:17:20 07/14/20 16 Physical Activity Counselling completed Che Woods [address] [place], [address], [facility] 07/14/2016 21:45:18 06/17/20 16 Medicare Wellness Visit completed Nuha Sanchez RN [facility] 06/17/2016 08:19:35 03/31/20 16 37751: PT Evaluation completed Enrique Zaman, PT [address] [place], [address], [facility] 03/31/2016 14:00:35 03/28/20 16 POC Strep Testing completed Imelda Godinez MA [facility] 03/31/2016 11:15:45 04/25/20 15 96185: Therapeutic Exercise completed Jyothi Cloud, PT [address] [place], [address], [facility] 04/25/2015 12:45:33 04/25/20 15 64783: Manual Therapy completed Jyothi Cloud, PT [address] [place], [address], [facility] 04/25/2015 12:45:33 04/18/20 15 68239: PT Evaluation completed Jyothi Cloud, PT [address] [place], [address], [facility] 04/18/2015 12:46:49 08/22/20 14 Incise and Drain with packing completed Peace Ruano, TECHNOLOGY LAB TEACHER [address] [place], [address], [facility] 08/22/2014 14:22:12 Imaging Results Imaging Date Name Status LastModified by Organiz ation Details LastModified Time 07/30/2022 MAMMO, screening, tomosynthesis, bilateral completed [facility] (Imaging) [address], [place], [address], 08/01/2022 10:24:55 Procedure Notes None recorded. Medical Equipment None Reported. Allergies Allergen ID Allergen Name Allergen Category Reaction Reaction Severity Criticality Documentation Date Start Date Code Code System Note Provider Name and Address Organization Details Recorded Time 748600 propranol ol medicatio n Not available Not available Not available 04/15/2013 8787 RxNorm dizzy at lowes t dose Glenis Slade PA-C [address] [facility], [place], [address], [facility] 3 07:44:52 42413 codeine medicatio n Not available Not available Not available 02/06/2012 2670 RxNorm felt like she was going [facility] 11:34[facility]42 Medications Name Sig Start [...] bromide 42 mcg (0.06 %) nasal spray [place] 2 sprays 3 times a day by [...] Status Former Smoker Maegan Chavez LPN null, [facility] 02/06/2012 14:55:41 Do You Have An [...] not available 01/25/2015 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 0 Information not available 12/01/2012 Are There Any Guns Present In Your Home? No Information not available 01/02/2014 Live Alone Or With Others? With Others Information not available 01/02/2014 Does The Patient Have Difficulty Speaking Belarusian? No Information not available 01/02/2014 Does The Patient Have Difficulty Reading Belarusian? No Information not available 01/02/2014 Patient Has [...] virus, quadrivalent, PF 4 completed Not Available [facility] 09/17/2019 02:18:56 Influenza, split virus, trivalent, PF 4 completed Not Available [facility] 09/17/2019 02:31:43 zoster live 4 completed Not Available [facility] 09/17/2019 02:16:36 Tdap 5 completed Not Available [facility] 09/17/2019 02:19:26 Influenza, split virus, quadrivalent, PF 5 completed Not Available [facility] 09/17/2019 02:25:39 Td(adult) unspecified formulation 4 [facility] 11/05/2012 11:05:45 Influenza, high-dose, trivalent, PF 6 completed Not Available [facility] 09/17/2019 02:21:05 Influenza, high-dose, trivalent, PF 8 completed Not Available [facility] 09/17/2019 02:35:35 Influenza, high-dose, trivalent, PF 9 completed Not Available [facility] 09/17/2019 02:25:35 Past Encounters Encounter ID Performer Location Encounter Start Date Encounter Closed Date Diagnosis/Indication Diagnosis SNOMED-CT Code Diagnosis ICD10 Code Diagnosis Note [id number] Rheumatza adames [address] [place] [address] 02/06/2012 14:37:13 02/09/2012 08:16:56 [id number] Suresh adames [address] [place] [address] 03/08/2012 15:44:48 03/08/2012 16:12:52 [id number] Suresh adames [address] [place] [address] 08/09/2012 07:58:37 08/16/2012 08:50:53 [id number] Vida ROY [facility], OFFICE [address] [place] [address] [place] [address] 11/04/2012 11:15:14 11/04/2012 13:42:01 [id number] Vida ROY [facility], OFFICE [address] [place] [address] [place] [address] 11/18/2012 16:14:15 11/19/2012 07:57:17 [id number] SUNNY Pham [facility], OFFICE [address] [place] [address] [place] [address] 11/30/2012 14:08:06 12/01/2012 07:49:12 [id number] Idalia Anthony [facility], [address] [facility] [place], [place] [address] 12/01/2012 09:56:09 12/02/2012 09:24:43 [id number] Idalia Cruz [facility], [address] [facility] [place] [address] 12/13/2012 09:52:08 12/14/2012 07:42:08 [id number] Michelle Jett , [facility], OFFICE [address] [place] [address], [place] [address] 12/17/2012 08:28:56 12/17/2012 09:27:12 Screening mammography [id number] Nuha Iniguez MA , [facility], OFFICE [address] [place] [address], [place] [address] 02/03/2013 09:46:53 02/03/2013 10:54:35 [id number] Glenis Slade PA-C , [facility], OFFICE [address] [place] [address], [place] [address] 02/17/2013 08:57:54 02/17/2013 09:34:44 [id number] Yun Sullivan MA , [facility], OFFICE [address] [place] [address], [place] [address] 03/10/2013 07:07:22 03/10/2013 07:45:07 [id number] Lesli Leigh MD , [facility], OFFICE [address] [facility] [place] [address] 04/15/2013 07:18:02 04/15/2013 07:42:12 Benign essential hypertension 2732458 Well controlled today with good rate control as well. She is back on Metoprolol alternatin g 1 tab 1/2 tab qod. Diltiazem >> dizziness, [place] >> good pressure control but no rate control. Will stay with this for now. F/U prn. Raynaud's disease 144488172 Now has 3 cold fingers. Recommend trial of acupunctur e - she has seen Lana Fairbanks in the past and likes her very much. Agrees to try. Will f/u with outcome and I will continue to investigat e other possible causes. Dizziness 108443049 Cont inues. Meclizine continues to help. Try acupunctur e. If to no avail, may consider imaging as this has continued for quite awhile - ?sinuses, ?neck. [id number] Idalia [facility], [address], [place] [address] 05/23/2013 09:24:44 05/26/2013 09:02:53 Benign paroxysmal positional vertigo 486533979 [id number] Idaliadulce Cruz Physical [facility], [address] [place] [address] 05/30/2013 14:59:03 06/01/2013 14:06:23 Benign paroxysmal positional vertigo 058826148 [id number] Idaliadulce Cruz Physical [facility], [address] [place] [address] 06/02/2013 07:50:52 06/03/2013 08:12:15 Benign paroxysmal positional vertigo 779183802 [id number] Iadliadulce Cruz Physical [facility], [address] [place] [address] 06/08/2013 10:00:19 06/09/2013 08:19:39 Benign paroxysmal positional vertigo 862023293 [id number] Rheumatol rosangela, [address] [place] [address] 08/19/2013 10:39:26 08/22/2013 10:10:10 Raynaud's disease 028870926 This patient has developed Raynaud's over the past year. When I had seen her a year ago she was known to have a positive CLIFF with high titers centromere pattern. At that time she had no clinical features of limited scleroderm a (CR EST syndrome). Now, however, she has developed Raynaud's and has a couple of telangiect shayan. No symptoms suggesting esophageal dysmotilit y or sclerodact yly at this point. I do, however, feel that she is very likely developing limited scleroderm a. Her Raynaud's is symptomati c and she has a painful, slowly healing distal dry fissure adjacent to the nail bed of her index finger. We discussed local treatment for that lesion. I think we should try her on an alternate medication for the Raynaud's. I suggested starting at a very low dose of amlodipine , just 2.5 mg. If she tolerates this, increased to 5 mg and she should call me for a new prescripti on for larger size pills. She has a home blood pressure monitor. I urged that she stop the metoprolol which can sometimes exacerbate Raynaud's. We did discuss that adding Prozac is, for some reason, sometimes quite effective. I also urged her to take a baby aspirin daily. Serology will be updated today. I expect to here from her if she is having additional problems with the Raynaud's, otherwise followup in 6 months. Limited sy stemic sclerosis 698809908 At this point incomplet e CREST syndrome . [id number] [place] Limon, [facility], OFFICE [address] [facility] [place] [address] 09/15/2013 09:05:33 09/15/2013 09:56:59 Benign paroxysmal positional vertigo 267186563 Ongoing. Will see Beatrice Woods for eval and treatment. Continue to use meclizine as directed. Stay hydrated. Carpal mayank jason syndrome 90121222 Exam consistent with mild-moder ate carpal tunnel. Reviewed conservati ve vs aggressive treatment - injections , surgery. Will start with braces at nighttime and using ice bid. She can also use NSAIDS prn. Call or RTO if sxs persist/wo rsen. Nasal congestion 25234721 Allergies vs chronic sinusitis? Start Flonase. Continue nasal saline, claritin. [id number] [place] Limon, [facility], OFFICE [address] [facility] [place] [address] 10/27/2013 10:03:07 10/27/2013 11:03:06 Influenza vaccine needed 9784077626 106 Paronychia 77482657 Xray to r/o continued presence of foreign body. Start cephalexin as directed. Advised warm soaks with Epsom salt at least bid-tid. RTO if sxs persist/wo rsen. [id number] Che Woods [facility], [address] [address] 12/19/2013 15:24:50 12/19/2013 16:11:32 Benign paroxysmal positional vertigo 377693977 [id number] Che Woods [facility], [address] [place] [address] 12/21/2013 17:13:35 12/22/2013 08:19:10 Benign paroxysmal positional vertigo 583178393 [id number] Che Woods [facility], [address] [place] [address] 12/27/2013 14:54:41 12/28/2013 16:20:22 Benign paroxysmal positional vertigo 485673375 [id number] Kylah Carver [facility], OFFICE [address] [place] [address] [place] [address] 01/02/2014 08:21:00 01/02/2014 09:17:37 Adult health examination 642217538 pap done today, mammogram due 2014, colonoscop y due now, tdap and zostavax given today. Pt counselled on diet, exercise, appropriat e calcium intake, and stress management . see Risk Assessment and Lifestyle Change Counseling section above Screening for malignant neoplasm of colon 513310132 Varicella vaccination 64843631 Administra tion of diphtheria, pertussis, and tetanus vaccine 769131691 Screening for malignant neoplasm of cervix 298967685 Benign ess ential hypertension 7460554 Well controlled , below goal of under 140/90. Can cut back metoprolol to every other day. Continue to monitor BP at home, may be able to d/c completely . Hypothyroidism 84685186 Due for labs. She is feeling some palpitatio ns, so may be over compensate d. Will check labs and f/u with results. If palpitatio ns continue, consider holter monitor. [id number] Che Woods [facility], [address] [place] [address] 07/03/2014 13:01:38 07/04/2014 19:55:43 Hip pain 75508870 [id number] [facility], OFFICE [address] [place] [address] [place] [address] 07/04/2014 07:58:34 07/04/2014 08:30:29 Influenza vaccine needed 2404744771 106 Varicella vaccination 87156938 Benign ess ential hypertension 1811338 Well controlled , at goal of <140/90. Continue medication s as directed. Excellent work with diet & exercise. Hypothyroidism 07414070 Due for labs. She is feeling some palpitatio ns, so may be over compensate d. Will check labs and f/u with results. If palpitatio ns continue, consider holter monitor. [id number] Che Woods [facility], [address] [place] [address] 07/06/2014 08:31:30 07/07/2014 12:32:29 Hip pain 09504607 [id number] Che Woods [facility], [address] [place] [address] 07/13/2014 15:06:16 07/13/2014 16:21:42 Hip pain 23734263 [id number] Che Woods Physical [facility], [address] [place] [address] 07/20/2014 09:27:05 07/21/2014 08:20:11 Hip pain 25818864 [id number] MP Huerta, [facility], OFFICE [address] [facility] [place] [address] 08/22/2014 13:55:53 08/22/2014 14:19:51 Onychia 070338180 Keep clean and dry. Wound care instructio ns reviewed. Continue to soak with Epsom salt and warm water. Will f/u with culture results. [id number] [place] Castillo, [facility], OFFICE [address] [place] [address] [place] [address] 09/11/2014 14:07:15 09/11/2014 14:56:24 Paronychia of finger 305892577 rt 4th finger./ mild recurrent / grew citrobacte r last time/ will try Bactrim/ has chronic component all nails? refer dermatolog y [id number] Kylah ROY, [facility], OFFICE [address] [facility] [place] [address] 01/25/2015 13:19:27 01/25/2015 14:20:09 Screening for malignant neoplasm of colon 130202280 Screening mammography [id number] Adult heal th examination 316674016 see Risk Assessment and Lifestyle Change Counseling section above Administra tion of diphtheria, pertussis, and tetanus vaccine 375543767 [id number] [place] Castillo, [facility], OFFICE [address] [place] [address] 04/17/2015 08:54:07 04/17/2015 09:21:59 Lifestyle 625189164 Sciatica 07967140 [id number] Jyothi Cloud, PT Physical Therapy, [address] [place] [address] 04/18/2015 10:08:11 04/18/2015 16:11:08 Hip pain 67541832 Sciatica 79477916 Inflammati on of sacroiliac joint 44660932 [id number] Jyothi Cloud, PT Physical Therapy, [address] [place] [address] 04/25/2015 08:36:09 04/26/2015 08:47:50 Hip pain 43746325 Sciatica 68738026 Inflammati on of sacroiliac joint 95324930 [id number] Yun Sullivan MA , [facility], OFFICE [address] [place] [address] [place] [address] 05/16/2015 14:21:12 05/16/2015 15:02:05 Influenza vaccine needed 1278306404 106 Onychomycosis 734227382 Noted Id reaction, I suspect a fungal infection. Reviewed soaking with Epsom salts, and keeping skin clean & dry. Use of clotrimazo le and oral fluconazol e reviewed. Discussed risks, benefits, side effects, and limitation s of medication . Lifestyle 397828058 [id number] Peace Ruano NP , [facility], OFFICE [address] [place] [address] [facility] [place] [address] 06/07/2015 14:19:45 06/07/2015 14:52:54 Onychomycosis 389951975 B35.1 Continued Id reaction, I suspect an ongoing fungal infection. Reviewed soaking with Epsom salts, and keeping skin clean & dry. Use of clotrimazo le and oral terbinafin e reviewed. Discussed risks, benefits, side effects, and limitation s of medication . Consulted with BWW on case. [id number] Che Woods [facility], [address] [place] [address] 06/21/2015 07:50:12 06/21/2015 10:45:22 Benign paroxysmal positional vertigo 065805396 H81.13 [id number] Che Woods Physical Therapy, [facility] [address] [facility] [place] [address] 06/25/2015 12:54:48 06/25/2015 18:04:06 Benign paroxysmal positional vertigo 110726133 H81.13 [id number] Peace Ruano NP , [facility], OFFICE [address] [facility] [place] [address] 07/05/2015 14:11:01 07/05/2015 15:37:21 Benign essential hypertension 1212787 I10 Well controlled , at goal of <140/90. Encouraged increased activity, weight loss, heart healthy diet. continue medication s as directed. Raynaud's disease [id number] 006 I73.00 Very likely part of a CREST-like picture. Has f/u with Dr. Leigh tomorrow. [id number] Vida Orellana Rheumatol rosangela, [address] [place] [address] 07/06/2015 08:41:00 07/16/2015 07:48:13 Raynaud's disease [id number] I73.00 Basically stable pattern of Raynaud's, but she has been getting a recurrent paronychia l sore right index finger. 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 She can start at just half a tablet and increase to 2.5 mg daily after a week or 2. If she does not tolerate that, I would suggest we might want to try Prozac. Also discussed dressing warm etc. Limited sy stemic sclerosis [id number] M34.9 Limited scleroderm a with features that include Raynaud's, mild sclerodact yly, telangiect shayan, symptoms of mild esophageal dysmotilit y. She has a high titer anticentro mere antibody. I have not seen her in a couple of years. She has evolved additional telangiect shayan since then. The telangiect shayan, particular ly when severe, can be a clinical marker for pulmonary hypertensi on. Her Raynaud disease no worse, but she has been getting a recurring paronychia l sore right index finger. Check x-ray to rule out calcinosis . In terms of monitoring the limited scleroderm a, I do think we should get a baseline echocardio gram. She really has little or no pulmonary symptomato logy but I did discuss that we would want to monitor for pulmonary hypertensi on. Paronychia [id number] L03. 819 [id number] Lesli Leigh MD Rheumatol rosangela, [address] [place] [address] 09/07/2015 08:44:36 09/07/2015 12:07:26 Limited systemic sclerosis 451120862 M34.9 Limited scleroderm a with features that include Raynaud's, mild sclerodact yly, telangiect shayan, symptoms of mild esophageal dysmotilit y. She has a high titer anticentro mere antibody. Had normal echocardio gram (the ecchocardi ogram report suggested R heart catheteriz ation, but this is not clinically indicated) . Routine f/u 6 mo. Finger ulcer [id number] L 98.499 Distal digital ulceration R middle finger. This occurs in the setting of known limited scleroderm a. While she is not describing any critical ischemia with her Raynaud's, on the microvascu lar level probably not perfusing distal finger pulp fully. I don't think this represents fungal or other infection. It appears consistent with her know limited scleroderm a.. Discussed. Plan is to try to improve local perfusion. Increase amlodipine to 5 mg daily. Add Nitroglyce rine ointment: about 1/4 to 1/2 inch to finger 3 times during day, remove at night. Keep body core overheated . Return if any worsening Raynaud's. Raynaud's phenomenon 266 019925 I73.00 [id number] [facility], [address] [place] [address] 10/02/2015 09:31:48 10/03/2015 23:23:19 Benign paroxysmal positional vertigo 306165246 H81.13 [id number] [place] Bender, [facility], OFFICE 329 [facility] [place] [address] 03/28/2016 10:30:17 03/28/2016 11:39:24 Acute upper respiratory infection 63009044 J06.9 Educated patient that URI is a viral illness of the upper airways. It is not bacterial and does not benefit from antibiotic s. Average duration of URI is 7-10 days but in a recent trial, treatment at 7-10 days of illness with antibiotic s, intranasal steroids, or placebo did not alter natural history at 3 weeks. Recommende d symptomati c treatments including NSAIDS, semi-uprig ht sleep position, antihistam bryan at HS, limited course of nasal sympathomi metics and/or cough syrups, and nasal saline rinses with soft squeeze bottle or Neti pot. Return for fevers > 101 for 3 days, worsening sinus pain, or failure to resolve in 2-4 weeks. Coxsackie virus disease [id number] B34.1 Viral infection, very likely hand foot and mouth disease. Reviewed supportive care and return precaution s. [id number] Belkis Tabares MD , [facility], OFFICE [address] [facility] [place] [address] 03/29/2016 09:56:21 03/29/2016 10:42:35 Spasm of back muscles 657728454 M62.830 We reviewed the basic pathophysi ology and management of low back pain, including weighing the risks vs benefits of imaging when patient is without s/sx of complicati on. Recommend: Moist heat 20 minutes a day, minimum of twice a day with either hot pack or hot bath/sauna , etc. taking medicines appropriat angelica and as they are prescribed , gentle and conservati ve use and movement (avoiding bedrest), and reviewed the s/sx of complicati ons, including worsening pain unrelieved by medication , new numbness, tingling, pain, weakness, incontinen ce. We reviewed the value of PT and advised avoiding stretching , lifting, rotational movement, or other weight bearing until evaluated by PT or symptoms improve. The patient voiced comprehens ion, agreed to the plan of care, and had no further questions or concerns. I urged 1000 mg of tylenol and motrin 600 mg three times a day [id number] Enrique Zaman, PT Physical Therapy, [facility] 329 [facility] [place] [address] 03/31/2016 13:37:00 04/01/2016 08:39:49 Low back pain 489025355 M54.5 Sacroiliac joint pain 20 1763972 M53.3 [id number] Jeanine ROY, [facility], OFFICE 329 [place] [address] 04/07/2016 11:48:34 04/07/2016 13:29:[address] [place] [facility] [place], but pt has continued sinus congestion , sore throat, PND. Empiric tx with abx as nothing else is working. Reviewed medication risks, benefits, side effects, and limitation s. Anti-nucle ar factor detected 153130798 R76.8 Grossly positive CLIFF drawn in 07/2015. Now in the context of elevated ESR, ? positive blood culture, and pharyngiti s. Will check back with rheumatolo gy for further eval and rx. 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 She has a high titer anticentro mere antibody. Had normal echocardio gram.Recen t illness with persistent (3 weeks) sore troat and sinus congestion . Has some consolidat ion in RML on CXR. I suspect this is all unrelated to the limited scleroderm a, but the abnormal CXR certainly needs to be followed. Routine f/u 6 mo. Pneumonitis 439499247 J1 2.9 Recent small RML consolidat ion on CXR. Repeat in about 2 weeks. Raynaud's phenomenon 266 340400 I73.00 Continue Amlodipine . Used some NTG ointment las winter. Primary fi bromyalgia syndrome 36266676 M79.7 The patient has some fairly mild diffuse musculoske letal pains associated with a prominent sleep disruption . At the moment she is not bothered much, has fair energy and feels well.Encou raged regular exercise, return for this as needed.. [id number] RICO Quinones, [facility], OFFICE 329 [place] [address] 06/17/2016 08:15:19 06/17/2016 09:12:56 Adult health examination 627875548 Z00.00 see Risk Assessment and Lifestyle Change Counseling section above Counseling 925978890 Z71 .9 Encouraged increased activity and joining a gym, pt agreeable and plans to join a gym, will continue to eat a low fat and vegan diet, also encouraged mediterran marion diet Active or passive immunization 859556310 Z23 Subconjunc tival hemorrhage 71467288 H11.31 Asymptomat ic, instructed if unresolved in 10 days to F/U Benign ess ential hypertension 1453194 I10 BP at goal, [facility] [id number] [facility], [address] [address] 07/14/2016 15:50:36 07/15/2016 08:06:45 Benign paroxysmal positional vertigo 718836311 H81.13 [id number] Che Woods Physical [facility], [address] [address] 07/31/2016 11:14:06 08/04/2016 07:42:56 Benign paroxysmal positional vertigo 105977228 H81.13 [id number] Che Woods Physical [facility], [address] [address] 08/06/2016 16:20:02 08/07/2016 10:57:56 Benign paroxysmal positional vertigo 508638060 H81.13 [id number] Che Woods Physical [facility], [address] [address] 08/21/2016 07:51:48 08/21/2016 16:07:07 Benign paroxysmal positional vertigo 577639155 H81.13 [id number] Che Woods Physical [facility], [address] [address] 09/15/2016 09:22:57 09/15/2016 15:40:37 Benign paroxysmal positional vertigo 914887824 H81.13 [id number] Enrique Jones MD , [facility], OFFICE [address] [place] [address] 09/18/2016 08:45:46 09/18/2016 09:28:05 Palpitations 72495174 R00.2 continue to avoid caffeine, sudafed, holter in past unrevealin g, followup as needed. Discussed exercise. Obesity 746217227 E66.9 retiring next week, discussed Y program [id number] Jyothi Cloud PT Physical Therapy, [address] [place] [address] 11/26/2016 10:06:14 11/27/2016 08:07:38 Low back pain 542193540 M54.5 Sacroiliac joint pain 20 3058894 M53.3 [id number] Ambrocio Baugh MD Sports Medicine, [address] [place] [address] 12/04/2016 13:20:22 12/05/2016 09:20:39 Hip pain 03294615 M25.551 M25.552 Rajani is a 66-year-ol d female with bilateral hip pain I feel is secondary to greater trochanter ic pain syndrome. She also has discomfort over her sacroiliac joints as well. At this time she does not appear to have radicular symptoms or signs of a lumbar source of her discomfort . I had an extensive discussion with her regarding the likely cause of her pain and treatment options. I have advised that she would likely do well with physical therapy and given her referral to this. We also discussed the use of NSAID medication as well as the possibilit y of injection therapy in the future. She will plan to follow up immediatel y for reevaluati on. If she is having persistent discomfort she may benefit from a trochanter ic bursa corticoste roid injection. [id number] Jyothi Cloud PT Physical Therapy, [address] [place] [address] 12/16/2016 16:10:26 12/17/2016 13:16:15 Low back pain 751320173 M54.5 Sacroiliac joint pain 20 1370574 M53.3 [id number] Jyothi Cloud PT Physical Therapy, [address] [place] [address] 12/23/2016 13:06:34 12/23/2016 14:08:48 Low back pain 438072682 M54.5 Sacroiliac joint pain 20 4524882 M53.3 [id number] Peace Ruano, [place] , [facility], OFFICE [address] [place] [address] [place] [address] 12/25/2016 12:38:08 12/25/2016 13:16:45 Limited systemic sclerosis 153580838 M34.9 Sxs improved with use of CCB. Continue. Will f/u with rheumatolo gy as directed. Benign ess ential hypertension 2415744 I10 BP at goal of <140/90. Continue diet, exercise, medication s. [id number] Jyothi Cloud, PT Physical Therapy, [address] [place] [address] 12/26/2016 12:57:05 12/26/2016 14:20:48 Low back pain 589097358 M54.5 Sacroiliac joint pain 20 9933119 M53.3 [id number] Jyothi Cloud, PT Physical Therapy, [address] [place] [address] 12/26/2016 14:53:31 12/26/2016 14:53:47 [id number] Belkis Tabares MD , [facility], OFFICE [address] [facility] [place] [address] 01/13/2017 13:02:05 01/13/2017 16:52:17 Acute allergic serous otitis media 78137920 H65.119 Tincture of time - acute serous otitis may take up to 12 weeks to resolve. OTC decongesta nts have very little proven effect. Allergy medicine may provide a little symptomati c relief in adult population s. Simple maneuvers such as autoinsuff lation (pinching the nose while gently exhaling, forcing air back through the Eustachian tube and repressuri zing the ear) may be helpful. RTC if pain or fevers develop. [id number] TIMMY Narayanan FP, [facility], OFFICE 329 [facility] [place] [address] 05/06/2017 15:02:11 05/06/2017 15:30:13 Hypothyroidism 33547658 E03.9 Pt very fatigued latelyLast TSH 4.79 in 2014Taking levothyrox ine 75 mcgWill check TSH today and follow up with result and plan of care as needed Benign ess ential hypertension 5085099 I10 Well-contr olled on HCTZ and amlodipine , but with potential side effects of amlodipine , including dizziness and bilateral foot edemaWill trial amlodipine 2.5 mg daily, and she will return to Dr Leigh to discuss repeat echo and changing medication for rate control [id number] Lesli Leigh MD Rheumatol rosangela, [address] [place] [address] 05/25/2017 13:32:18 05/25/2017 16:45:06 Limited systemic sclerosis 777806216 M34.9 Limited scleroderm a with features that include Raynaud's, mild sclerodact yly, telangiect shayan, symptoms of mild esophageal dysmotilit y. She has a high titer anticentro mere antibody. Had normal echocardio gram. No change in any symptoms. Did have digital ulceration last October, slowly healed. Will update labs. Routine f/u 6 mo. Tachycardia 7938252 R00. 0 Actually upper normal HR, generally resting HR 90's. No associated symptoms.S he wonders if amlodipine is responsibl e, especially when taken with IBU. BP very well controlled . It looks to me as if, on a couple of occasions in the past, she was put on metoprolol because of this.I doubt the amlodipine is playing a major role, but since weather is still warm, she stop it for few weeks and see if pulse rate changes significan tly. With hx of Raynaud's and digital ulcers, it would be oquendo to have her of the amlodipine when weather gets cooler. Raynaud's phenomenon 266 196934 I73.00 See above. Digital ulcer last October. Resume amlodipine in cooler weather. Used some NTG ointment last winter. Continue careful attention to keeping adequately warm. Bursitis of shoulder 239 104868 M75.51 Rotator cuff tendinitis / bursitis R shoulder.R efer for PT. [id number] [facility], [address] [place] [address] 07/21/2017 08:51:26 07/21/2017 20:28:31 Shoulder pain 53405361 M25.511 M25.512 Dizziness 164651859 R42 [id number] Lesli Leigh MD Rheumatol rosangela, [address] [place] [address] 07/31/2017 09:54:36 07/31/2017 11:14:12 Limited systemic sclerosis 253347346 M34.9 Limited scleroderm a with features that include Raynaud's, mild sclerodact yly, telangiect shayan, symptoms of mild esophageal dysmotilit y. She has a high titer anticentro mere antibody. Had normal echocardio gram. No change in any symptoms. Did have digital ulceration last October, slowly healed. Labs updated 05/25/17: all unchanged except possible faint M-spike on SPEP with normal UPEP and IF. ESR 45 (improved) with normal CRP. Routine f/u 6 mo. Paronychia of finger 444 793634 L03.019 L 4th finger. The finger itself is well perfused at present, though he has significan t Raynaud's at times and has had digital ulceration in past.Discu ssed treatment paronychia . Soak, Keflex.Als o try Nitro-bid ointment for this one finger to help ensure good perfusion. Raynaud's phenomenon 266 464613 I73.00 See above. Digital ulcer last October. Now paronychia l infection. Continue careful attention to keeping adequately warm. Continue amlodipine . [id number] [facility], [address] [place] [address] 08/03/2017 11:25:35 08/03/2017 12:22:14 Shoulder pain 78508037 M25.511 M25.512 Dizziness 994522034 R42 [id number] [facility], [address] [place] [address] 08/06/2017 11:19:10 08/07/2017 09:54:28 Shoulder pain 27365842 M25.511 M25.512 Dizziness 787363745 R42 [id number] [facility], [address] [place] [address] 08/25/2017 12:22:51 08/25/2017 12:58:39 Shoulder pain 15073288 M25.511 M25.512 Dizziness 631668084 R42 [id number] [facility], [address] [place] [address] 11/11/2017 12:23:27 11/12/2017 16:37:09 Benign paroxysmal positional vertigo 447640844 H81.12 [id number] Peace Ruano NP FP, [facility] [address] 11/12/2017 14:08:00 11/12/2017 16:23:31 Dizziness 885622239 R42 Has appt with PT as well. Screening mammography 24 216998 Z12.31 Acute sinusitis 05447002 J01.90 Pt presents today for evaluation of facial pain and congestion that has been persisting for several days. Pt has tried OTC remedies without relief. Pt history and physical exam are consistent with sinusitis. Discussed pathogenes is of sinusitis. Recommend pt continue with the supportive care of nasal saline, steam/hot showers, pushing fluids, ibuprofen or tylenol as needed for pain, cough syrup as needed for cough and rest. Due to the severity and persistanc e of pt symptoms we will also treat with antibiotic s as listed below. Pt will follow up if symptoms persist or worsen at any time. Screening for malignant neoplasm of colon 093181451 Z12.11 [id number] [facility], [address] [address] 11/12/2017 14:34:59 11/12/2017 16:34:28 Benign paroxysmal positional vertigo 393074207 H81.12 [id number] Che Woods [facility], [address] [address] 11/17/2017 09:22:32 11/17/2017 12:14:15 Benign paroxysmal positional vertigo 556646425 H81.12 [id number] Che Woods [facility], [address] [place] [address] 12/02/2017 11:22:19 12/02/2017 13:39:38 Benign paroxysmal positional vertigo 047693342 H81.12 [id number] Che [facility], [address] [place] [address] 12/22/2017 12:26:25 12/22/2017 19:48:05 Benign paroxysmal positional vertigo 926892134 H81.12 [id number] TIMMY Macias FP, [facility] OFFICE [facility] [address] 12/23/2017 10:12:02 12/23/2017 12:20:02 Benign paroxysmal positional vertigo 808436407 H81.13 Hx. of BPPV, likely exacerbate d by recent URI and plane ride. Neuro exam unremarkab le with no red flag symptoms. Already seeing PT for vestibular exams. Has Meclizine. Start Flonase. Advised on home Gin maneuver. Slow position changes. Reviewed ER/return precaution s. [id number] [facility], [address] [place] [address] 12/23/2017 12:52:51 12/23/2017 13:50:58 Benign paroxysmal positional vertigo 600461379 H81.12 [id number] [facility], [address] [place] [address] 12/24/2017 11:19:03 12/27/2017 21:15:10 Benign paroxysmal positional vertigo 370910592 H81.12 [id number] TIMMY Macias, [facility], OFFICE 329 [facility] [place] [address] 12/29/2017 13:16:02 12/29/2017 14:17:05 Adult health examination 397858813 Z00.00 see Risk Assessment and Lifestyle Change Counseling section aboveLabs reviewed Counseling 399692834 Z71 .9 Depression screening 171 178923 Z13.89 depression screening tool administer ed, entered into emr, scored and discussed, time greater than 7.5 minutes Benign ess ential hypertension 6567665 I10 Blood pressure at goal, Continue meds. HR is elevated, chronic per patient. Will continue to monitor and call if ongoing elevation. States that when she exercises it usually will come down overall. Previously on low dose beta adair but does not wish to start again today. Screening for malignant neoplasm of colon 185956749 Z12.11 Reviewed that the gold standard of colorectal cancer screening is a colonoscop y. Patient is not interested in this at this time and would like to do IFOB cards. Discussed that positive test result should then warrant colonoscop y. Also informed patient of importance of annual screening with IFOB cards. Patient verbalizes understand ing to this plan. Acute sinusitis 86560722 J01.90 Pt presents today for evaluation of facial pain and congestion that has been persisting for several days. Pt has tried OTC remedies without relief. Pt history and physical exam are consistent with sinusitis. Discussed pathogenes is of sinusitis. Recommend pt continue with the supportive care of nasal saline, steam/hot showers, pushing fluids, ibuprofen or tylenol as needed for pain, cough syrup as needed for cough and rest. Due to the severity and persistanc e of pt symptoms we will also treat with antibiotic s as listed below. Pt will follow up if symptoms persist or worsen at any time. Hypercholesterolemia 136 76172 E78.00 Lipid levels slightly. ASCVD risk of 9.6%. Patient opting to make lifestyle modificati ons and recheck in 6 months over meds. Screening mammography 24 744246 Z12.31 Due to have mammo. Dizziness 283978801 R42 Still suspect BPPV ? if exacerbate d by acute sinusitis. Trial abx, continue PT, follow up later this week. [id number] [facility], [address] [place] [address] 12/29/2017 14:16:43 12/30/2017 07:59:55 Benign paroxysmal positional vertigo 039870723 H81.12 [id number] [facility], [address] [place] [address] 12/31/2017 13:23:45 12/31/2017 14:07:25 Benign paroxysmal positional vertigo 001084468 H81.12 [id number] [facility], [address] [place] [address] 03/10/2018 13:59:23 03/11/2018 12:12:38 Shoulder pain 81476580 M25.936 [id number] [facility], [address] [place] [address] 03/22/2018 15:52:29 03/22/2018 16:36:57 Shoulder pain 29488623 M25.190 [id number] Joanna Thurman, PT Physical Therapy, [address] [place] [address] 07/12/2018 16:22:54 07/13/2018 09:48:57 Benign paroxysmal positional vertigo 223454238 H81.11 [id number] Joanna Thurman, PT Physical Therapy, [address] [place] [address] 07/14/2018 12:05:50 07/14/2018 14:01:38 Benign paroxysmal positional vertigo 677772696 H81.11 [id number] Peace Ruano NP FP, [facility], OFFICE 329 [facility] [place] [address] 07/15/2018 13:01:26 07/15/2018 13:43:13 Benign essential hypertension 8425089 I10 Blood pressure well below goal. Could likely taper off HCTZ, but she finds that this flares up her BPPV. Continue low dose HCTZ, reviewed diet, exercise, hydration, and weight loss. Active or passive immunization 329166051 Z23 Benign par oxysmal positional vertigo 758405444 H81.10 Ongoing. Will see Beatrice Woods for eval and treatment. Continue to use meclizine as directed. Stay hydrated. Suggested acupunctur e for treatment. [id number] [facility], [address] [place] [address] 08/17/2018 11:19:11 08/17/2018 21:10:32 Benign paroxysmal positional vertigo 436006145 H81.12 [id number] Che Woods [facility], [address] [place] [address] 08/19/2018 08:53:11 08/20/2018 21:43:05 Benign paroxysmal positional vertigo 699084793 H81.12 [id number] Che Woods [facility], [address] [place] [address] 08/26/2018 09:53:12 08/26/2018 16:32:41 Benign paroxysmal positional vertigo 351645466 H81.12 [id number] RICO Quinones, [facility], OFFICE 329 [facility] [place] [address] 11/08/2018 07:28:42 11/08/2018 07:50:11 Onychomycosis 815072364 B35.1 I suspect an ongoing fungal infection. Reviewed soaking with Epsom salts, and keeping skin clean & dry. Use of clotrimazo le and oral terbinafin e reviewed. Discussed risks, benefits, side effects, and limitation s of medication . She opted to not use rx medication at this time, will f/u if sxs persist/wo rsen [id number] Joanna Thurman, PT Physical Therapy, [address] [place] [address] 11/25/2018 10:47:08 11/26/2018 08:18:11 Benign paroxysmal positional vertigo 478840153 H81.12 [id number] Joanna Thurman, PT Physical Therapy, [address] [place] [address] 11/26/2018 09:26:09 11/26/2018 10:25:05 Benign paroxysmal positional vertigo 961626426 H81.12 [id number] Caprice Bonner D.O. , [facility], OFFICE [address] [place] [address], [place] [address] 12/09/2018 10:44:38 12/09/2018 11:19:40 Ingrowing toenail 930676996 L60.0 discussed continue warm soaks until she can see podiatry. Onychomycosis 277454996 B35.1 Pre-surger y evaluation 031586164 Z01.818 low risk for low risk surgery. forms completed and faxed to [facility] Services Ophthalmic . Cataract of left eye [id number] H26.9 low risk for low risk surgery. forms completed and faxed to [facility] . [id number] Georgina Joshi DPM Podiatry, [address] [address] 12/23/2018 07:44:49 12/23/2018 10:17:20 Ingrowing toenail [id number] L60.0 right great toe ingrown toenail lateral nail border:-In formed consent obtained. Right hallux block was performed. Foot prepped and drapped in the usual aseptic manner. Involved lateral nail border removed. Site was dressed with bacitracin and dsd and compressio n dressing. Pt given instructio ns and handout for at home care. RTC 1 wk.-to take OTC pain medication prn pain. Pain in toe [id number] M7 9.313 [id number] Peace Ruano NP FP, [facility], OFFICE [address] [place] [address] 12/31/2018 09:26:21 12/31/2018 10:18:19 Adult health examination [id number] Z00.00 see Risk Assessment and Lifestyle Change Counseling section above Counseling [id number] Z71 .9 Encouraged increased activity and joining a gym, pt agreeable and plans to join a gym, will continue to eat a low fat and vegan diet, also encouraged mediterran marion diet Depression screening 171 460300 Z13.89 depression screening tool administer ed, entered into emr, scored and discussed, time greater than 7.5 minutes Benign ess ential hypertension 0280931 I10 Blood pressure at goal. She feels better with better control and decreased pulse. OK to restart beta adair, continue HCTZ. RTO for recheck in 3 months. [id number] Georgina Joshi DPM Podiatry, [address] [place] [address] 01/05/2019 13:09:59 01/06/2019 13:32:18 Ingrowing toenail [id number] L60.0 right great toe healing. We await bx results. Pt instructed to soak for another week. Ok to leave toe open to air. RTC prn. I spent 15 mins face to face with patient, more 50% spent in counseling and coordinati on of care. Pain in toe 384224178 M7 9.465 [id number] Kitty Osorio RN FP, [facility], OFFICE [address] [place] [address], [place] [address] 02/01/2019 14:24:10 02/01/2019 14:45:25 Benign essential hypertension 7978614 I10 Blood pressure at goal. She feels better with better control and decreased pulse. OK to restart beta adair, continue HCTZ. RTO for recheck in 3 months. [id number] RICO Quinones, [facility], OFFICE [address] [place] [address] [place] [address] 03/01/2019 08:32:48 03/01/2019 09:09:54 Palpitations [id number] R00.2 EKG revealed occ PAC's. Reviewed benign nature of this condition, monitoring for sxs worsening, and avoiding things like caffeine & etoh. Benign ess ential hypertension 8606721 I10 Blood pressure at goal. She feels better with better control and decreased pulse. OK to restart beta adair, continue HCTZ. [id number] Peace Ruano NP FP, [facility], OFFICE [address] [facility] Juvenalangélica osorio, [place] [address] 04/04/2019 08:47:16 04/05/2019 15:13:04 Benign essential hypertension 7109382 I10 Tolerating meds well. BP at goal of <130/90. Continue meds as directed. Schedule PHA and BP check in December 2019. [id number] Michelle Luevano LPN FP, [facility], OFFICE [address] [facility] [place], [place] [address] 07/07/2019 06:59:44 07/08/2019 06:48:53 Active or passive immunization [id number] Z23 [id number] Joanna Thurman, PT Physical Therapy, [address], [place] [address] 03/18/2021 14:17:44 03/19/2021 09:00:32 Benign paroxysmal positional vertigo 862238736 H81.12 [id number] Joanna Thurman PT Physical Therapy, [address], [place] [address] 03/25/2021 08:51:43 03/25/2021 10:50:40 Benign paroxysmal positional vertigo 430361645 H81.12 [id number] Joanna Thurman, PT Physical Therapy, [address], [place] [address] 03/26/2021 10:52:43 03/26/2021 11:48:09 Benign paroxysmal positional vertigo 090141218 H81.12 [id number] Joanna Thurman, PT Physical Therapy, [address], [place] [address] 03/28/2021 09:24:44 03/28/2021 10:20:20 Benign paroxysmal positional vertigo 017332510 H81.12 [id number] Joanna Thurman PT Physical Therapy, [address] [place] [address] 04/12/2021 08:24:37 04/12/2021 09:25:30 Benign paroxysmal positional vertigo 833628590 H81.12 [id number] Joanna Thurman, PT Physical Therapy, [address] [place] [address] 04/15/2021 14:53:19 04/15/2021 15:45:40 Benign paroxysmal positional vertigo 169788279 H81.12 [id number] Joanna Thurman, PT Physical Therapy, [address] [place] [address] 04/19/2021 08:27:31 04/19/2021 09:32:27 Benign paroxysmal positional vertigo 470048077 H81.12 [id number] Joanna Thurman, PT Physical Therapy, [address] [place] [address] 04/29/2021 09:53:42 04/29/2021 11:05:00 Benign paroxysmal positional vertigo 780150781 H81.12 [id number] Joanna Thurman, PT Physical Therapy, [address] [place] [address] 05/07/2021 07:45:05 05/08/2021 07:52:53 Benign paroxysmal positional vertigo 863253030 H81.12 [id number] Joanna Thurman, PT Physical Therapy, [address] [place] [address] 05/15/2021 10:50:25 05/15/2021 12:12:27 Benign paroxysmal positional vertigo 249805131 H81.12 [id number] Joanna Thurman, PT Physical Therapy, [address] [place] [address] 11/26/2021 08:24:40 11/26/2021 09:31:24 Benign paroxysmal positional vertigo 464895699 H81.13 [id number] Joanna Thurman, PT Physical Therapy, [address] [place] [address] 11/28/2021 11:26:26 11/28/2021 12:31:18 Benign paroxysmal positional vertigo 050407512 H81.13 [id number] Joanna Thurman, PT Physical Therapy, [address], [place] [address] 12/02/2021 10:24:19 12/02/2021 11:05:50 Benign paroxysmal positional vertigo 446272515 H81.13 [id number] Joanna Thurman, PT Physical Therapy, [address] [place], [place] [address] 12/06/2021 09:23:36 12/06/2021 10:00:25 Benign paroxysmal positional vertigo 777240114 H81.13 [id number] Joanna Thurman, PT Physical Therapy, [address], [place] [address] 04/28/2022 11:21:21 04/28/2022 12:29:18 Benign paroxysmal positional vertigo 459180784 H81.13 [id number] Joanna Thurman, PT Physical Therapy, [address], [place] [address] 05/02/2022 09:55:35 05/02/2022 10:53:33 Benign paroxysmal positional vertigo 077102489 H81.13 [id number] Joanna Thurman, PT Physical Therapy, [address] [place] [address] 05/06/2022 11:42:39 05/07/2022 08:41:59 Benign paroxysmal positional vertigo 068781209 H81.13 [id number] Jyothi Cloud, PT Physical Therapy, [address] [place] [address] 04/03/2023 11:14:07 04/03/2023 15:28:29 Left-sided piriformis syndrome 0452793080 42719 M54.32 Trochanter ic bursitis of left hip [id number] 85767 M70.62 Inflammati on of sacroiliac joint 76469390 M46.1 [id number] DAJA LIN, PT Physical Therapy, [address] [place] [address] 01/26/2024 10:47:07 01/26/2024 14:46:41 Benign paroxysmal positional vertigo 065445443 H81.11 [id number] DAJA LIN, PT Physical Therapy, [address] [place] [address] 01/28/2024 15:48:34 01/28/2024 17:01:06 Benign paroxysmal positional vertigo 543561557 H81.11 Health Concerns Section Related Observation LastModified by Organization Detai ls LastModified Time None Recorded Concern Status LastModified by Organization Details LastModified Time None Recorded Advance Directives Directive N: Discussed and gave form . sc Payers Encounter Date Sequence Insurance Name Policy Number Policy Arizmendi Covered Member ID Arizmendi Member ID Guarantor Name 05/02/2022 2 [facility] 1 (MEDICARE SUPPLEMENT) [id number] Rajani S Mitchkoski [id number] Rajani Mitchkoski 05/02/2022 1 [place] Rajani S Mitchkoski [id number] Rajani Mitchkoski 05/06/2022 2 [facility] 1 (MEDICARE SUPPLEMENT) [id number] Rajani S Mitchkoski [id number] Rajani Mitchkoski 05/06/2022 1 [place] [employer] Rajani S Mitchkoski [id number] Rajani Mitchkoski 04/03/2023 2 [facility] 1 (MEDICARE SUPPLEMENT) [id number] Rajani S Mitchkoski [id number] Rajani Mitchkoski 04/03/2023 1 [place] [employer] Rajani S Mitchkoski [id number] Rajani Mitchkoski 01/26/2024 2 [facility] PL[facility] 1 (MEDICARE SUPPLEMENT) [id number] Rajani S Mitchkoski [id number] Rajani Mitchkoski 01/26/2024 1 [place] [employer] Rajani S Mitchkoski [id number] Rajani Mitchkoski 01/28/2024 2 [facility] PLAN 1 (MEDICARE SUPPLEMENT) [id number] Rajani S Mitchkoski [id number] Rajani Mitchkoski 01/28/2024 1 [place]: [employer] Rajani S Mitchkoski [id number] Rajani Mitchkoski Notes Date Note Type Note Provider Name and Address Organization Details Recorded Time 05/02/2022 text/html Dolly statest th at she is feeling better. She reports that she has not been having dizziness when rolling in bed. Joanna Thurman, PT [address] [place], [address], [facility] 05/02/2022 10:25:34 05/06/2022 text/html Dolly states bety t she has been feeling pretty good. I have only felt it once a tiny bit when I was rolling in bed. Joanna Thurman, PT [address] [place], [address], [facility] 05/07/2022 07:57:17 04/03/2023 text/html PT Initial Eval*Reported bypatient.Symptom intensity:average 11/07 Symptom duration:occasional ly Symptom change:symptoms are getting [...] help Work:retired Activities/Hobbies/ Exercise:none; egoscue exercises. Likes craInfolinks Associated Symptoms:no nausea; no vomiting; no fever; no chills; no excessive fatigue; no confusion; no forgetfulness; no dizziness; no lightheadedness; no change in weight; no numbness; no tingling; no changes in urinary habits; no changes in bowel habits; no loss of pleasure or interest in activities; no feeling down or depressed Patient Specific Functional Score:{{ 20 30* 4 0 50 60 70 80 90 10 0}} Percent limitation in standing still{{ 20 30* 40 50 60 70 80 90 100 }} Percent limitation in walking{{06 19 30* 40 50 60 70 80 90 1 00}} Percent limitation in stairsLBP/L piriformis syndrome and into calf/moran area. Standing still is the worst, walk and stairs challenging, Wt bearing L LE increased pain. X rays done in past. Hx L GT bursitis. No HEP given yet by chiro/acupressure clinicians. Jyothi Cloud, PT [address] [place], [address], [facility] 04/03/2023 15:06:53 01/26/2024 text/html Pt is a 73 f referred by PCP (Soto STINSON at [facility]) for vertigo. This episode onset a [...] or when sleeping. SHANTAL LIN, PT [address] [place], [address], [facility] 01/26/2024 14:36:17 01/28/2024 text/html [place] great the first day, and generally speaking, [...] f referred by PCP (Soto STINSON at [facility]) for vertigo. This episode onset a [...] or when sleeping. SHANTAL LIN, PT [address] [facility], [place], [address], [facility] 01/28/2024 16:25:36 OBGyn Episode No OBEpisode recorded.
--- OUTSIDE RECORDS SUMMARY | 2024-10-04 11:35 | XMS_ITS | Encounter Summary ---
Author Organization [employer] Address [address] [place] [address] Care Team Providers Care Mass Communications Instructor Name Role Phone Provider, Not In System Primary Care Provider Un available Encounter Details Date Type Department Care Team (Late st Contact Info) Description 01/01/2024 Telephone [facility] [address] [place] [address] Provider, Not In System Social History Tobacco Use Types Packs/Day Years Used Date Smoking Tobacco: Former Cigarettes Q uit: 1989 Passive Smoke Exposure: Past Smokeless Tobacco: Never Alcohol Use Standard Drinks/Week Comments Not Currently [...] PM EST documented as of this encounter Miscellaneous Notes * Telephone Encounter - Osorio Finch - 01/01/2024 1:18 PM EDT Called and spoke with Mildred from home care. Informed PT hasn't been seen in almost a year and doesn't have a PCP listed with us. Informed we thought the PT had transferred to another provider as theywere last seen by ÁNGEL. * Telephone Encounter - Lelo Everett - 01/01/2024 1:12 PM EDT Was admitted to home care today, needs a verbal order for home services. documented in this encounter Plan of Treatment Not on file documented as of this encounter Visit Diagnoses Not on filedocumented in this encounter Care Teams Mass Communications Instructor Relationship Specialty Start Date End Date Provider, Not In System PCP - General Family Medicine 06/19/23 documented as of this encounter
== END 2024-10-04 11:10 | disposition home or self-care (01) ==
PROVIDERS: PCP Internal Medicine; Visit Provider Internal Medicine Pulmonary Disease
DX: J84.9 Interstitial pulmonary disease, unspecified (principal); J81.1 Chronic pulmonary edema
CPT/HCPCS: 99214

== ENCOUNTER → 2024-10-04 10:44 | Outpatient (BNVA) | payer MEDICARE, OTHER, SELFPAY | PROVIDERS: PCP Internal Medicine; Visit Provider Internal Medicine Pulmonary Disease | DX: J84.9 Interstitial pulmonary disease, unspecified (principal); J81.1 Chronic pulmonary edema | CPT/HCPCS: 99212 ==

== ENCOUNTER 2024-10-07 14:17 | Outpatient (AMB) | payer MEDICARE, OTHER, SELFPAY ==
--- NOTE | 2024-10-07 14:18 | MHC.PC.OV ---
Intake Visit Reasons: [facility] 10/02 Resource Forester Required: No Company Controller: Not Required per policy Accompanied by: Self / Same As Patient Allergies codeine Allergy (Severe, Verified 10/07/24 14:18) felt like going to propranolol Allergy (Intermediate, Verified 10/07/24 14:18) dizziness Seasonal Allergies Allergy (Intermediate, Verified 10/07/24 14:18) Sneezing, vertigo Tobacco use date assessed: 05/25/24 Dental Screening Dental Screen Date: 09/15/24 [facility] Medical History (Updated 10/07/24 @ 15:35 by Ekaterina Urban PA-C) Adverse reaction to drug Restless leg syndrome Pacemaker Lower thoracic back pain Bifascicular block Supplemental oxygen dependent CREST (calcinosis, Raynaud's phenomenon, esophageal dysfunction, sclerodactyly, telangiectasia) Dyspnea on exertion Pericardial effusion Hypothyroid Enlarged thyroid Hypertension Multinodular thyroid Telangiectasia Dysphagia Surgical History S/P placement of cardiac pacemaker S/P cardiac cath S/P tooth extraction Hx of colonoscopy H/O breast biopsy Family History Father Heart disease Sister Ovarian cancer Brother Heart attack Stroke Mother Thyroid disease Brother Asthma Social History Household Members: Spouse Housing: House Do you presently have visiting nurse or other home services: Yes ([facility] ,[facility]) Alcohol intake: never Patient Tobacco Use Status: Former Tobacco user Tobacco use type: Cigarette Years Smoked: 20 +/- e-Cigarette/Vaping Use: Never Used Second Hand Smoke Exposure: Yes Advance Directives Date on File: 02/13/24 service: No Current occupational status: retired 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 Carson Quiles, Malinda Morales, Tang Awad and colleagues, with an educational kevin from [employer]. Physical exam (Primary Care) Tobacco/Smoking Status: Tobacco use Status Tobacco use date assessed 05/25/24 10/07/24 14:24 Patient Tobacco Use Status Former Tobacco user 10/07/24 14:24 Tobacco use type Cigarette 10/07/24 14:24 e-Cigarette/Vaping Use Never Used 10/07/24 14:24 Thrive Assessment: Date of Thrive Assessment Date Thrive assessed 09/15/24 10/07/24 14:24 Telehealth Telehealth Telehealth Platform: Telephone Location of provider rendering services: practice address Location of patient: address on file Patient Identification confirmed using: Name, : Yes Telehealth method: video Patient verbally consented to treatment: Yes Patient verbally consented to billing insurance company: Yes Patient informed of any privacy concerns related to visit: Yes Coding Level of Care Code Tele Est Pt Level 4 (00429) Complex EM visit Add On G2211 Diagnoses Pacemaker Z95.0 ILD (interstitial lung disease) J84.9 CREST (calcinosis, Raynaud's phenomenon, esophageal dysfunction, sclerodactyly, telangiectasia) M34.1 Mitral stenosis I05.0 WISAM (obstructive sleep apnea) G47.33 S/P cardiac cath Z98.890 Carotid arterial disease I77.9 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 (2) ILD (interstitial lung disease): Code(s): J84.9 - Interstitial pulmonary disease, unspecified Category: Medical Plan: Patient being followed by Dr. Monson. Has follow-up appointment. Condition is chronic and stable continue to monitor. (3) CREST (calcinosis, Raynaud's phenomenon, esophageal dysfunction, sclerodactyly, telangiectasia): Code(s): M34.1 - CR(E)ST syndrome Category: Medical Plan: Condition is chronic and stable continue to monitor. (4) Mitral stenosis: Code(s): I05.0 - Rheumatic mitral stenosis Category: Medical Plan: Patient has appointment with Cardiology next week. Condition is chronic and stable continue to monitor. (5) WISAM (obstructive sleep apnea): Code(s): G47.33 - Obstructive sleep apnea (adult) (pediatric) Category: Medical Plan: Condition is chronic and stable will continue to monitor. (6) S/P cardiac cath: Comment: 10/31/22 @ [facility] [place] - normal coronary arteries 04/26/2024, left main separate ostia lad mild mid disease, mild OM1 disease, RCA non dominant no disease, mitral stenosis gradient 11 mmHg, wedge 15, PA Code(s): Z98.890 - Other specified postprocedural states Category: Surgical Plan: Patient has appointment with Cardiology next week. Condition is chronic and stable continue to monitor. (7) Carotid arterial disease: Code(s): I77.9 - Disorder of arteries and arterioles, unspecified Category: Medical Plan: Patient has appointment with Cardiology next week. Condition is chronic and stable continue to monitor. 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 Condition is chronic and stable will continue to monitor (9) Raynauds disease: Code(s): I73.00 - Raynaud's syndrome without gangrene Category: Medical Plan: Patient being followed by rheumatology. Condition is chronic and stable will continue to monitor (10) Restless leg syndrome: Code(s): G25.81 - Restless legs syndrome Category: Medical Plan: Will start patient on gabapentin 100 mg at bedtime for restless leg syndrome. Explained to patient with the muscle relaxer and the tramadol this can give her more sedation and she should not take all these medications together. Patient understands. Condition is chronic and stable continue to monitor. (11) Spondylosis of lumbar region without myelopathy or radiculopathy: Code(s): M47.816 - Spondylosis without myelopathy or radiculopathy, lumbar region Category: Medical Plan: Patient has chronic back pain on tramadol will give refill until she can follow-up with pain management in early October. Condition is chronic and stable continue to monitor. (12) Lower thoracic back pain: Code(s): M54.6 - Pain in thoracic spine Category: Medical Plan: Patient has chronic back pain on tramadol will give refill until she can follow-up with pain management in early October. Condition is chronic and stable continue to monitor. (13) Adverse reaction to drug: Code(s): T50.905A - Adverse effect of unspecified drugs, medicaments and biological substances, initial encounter Category: Medical Plan: Patient's symptoms have improved after she discontinued the new medications. She has follow-up with pulmonology. Condition is chronic and stable will continue to monitor. Plan Plan - Prescribe a trial of gabapentin 100 mg at night to manage restless leg syndrome. - Issue new prescription for tramadol, adjusted to a 30-day supply, to manage osteoarthritis pain until November 01, followed by pain management consult. - Advise cessation of azathioprine and consult with Dr. Monson regarding medication intolerance. - Recommend the use of wexh-iob-kmsihjx Zyrtec D for postnasal drip symptoms. - Monitor migraine frequency and response to current stressors, suggest Tylenol or Motrin for symptomatic relief. Orders: Orders Complete Blood Count Auto Diff Today Z00.00 - Encounter for general adult medical examination without abnormal findings Lipid Panel Today Z00.00 - Encounter for general adult medical examination without abnormal findings Liver Panel Today Z00.00 - Encounter for general adult medical examination without abnormal findings Magnesium Today Z00.00 - Encounter for general adult medical examination without abnormal findings TSH reflex Free T4 Today Z00.00 - Encounter for general adult medical examination without abnormal findings Comprehensive [place]. Panel Fast Today Z00.00 - Encounter for general adult medical examination without abnormal findings Hemoglobin A1c Today Z00.00 - Encounter for general adult medical examination without abnormal findings Vitamin B12 and Folate Today Z00.00 - Encounter for general adult medical examination without abnormal findings Vitamin D 25-OH Total Today Z00.00 - Encounter for general adult medical examination without abnormal findings Medications: New tramadol 50 mg PO BID 30 days PRN 60 tabs 0RF pain gabapentin 100 mg PO BEDTIME 90 caps 1RF Refilled tramadol 50 mg PO Q8H 14 tabs 0RF Patient Instructions: Patient Instructions - Cease azathioprine use and await further instruction from Dr. Monson. - Begin taking gabapentin 100 mg at bedtime for restless leg syndrome. - Use Zyrtec D for relief from postnasal drip. - Continue current medication regimen without azathioprine; use prescribed tramadol for osteoarthritis pain. - Consult pain management by the set date of November 01. - Note any changes in migraine patterns and report if they persist. - Follow up with Dr. Monson and Dr. Martinez as planned. Scribe Plan - Not visible on output: History of Present Illness The patient is a 74-year-old female presenting with medication-related nausea and vomiting. She reports that the symptoms commenced following changes to her medication regimen after a recent hospitalization. She identifies azathioprine, as prescribed by Dr. Monson, as the primary suspect for these side effects, with nausea and emesis occurring approximately 1.5 hours post-administration. The patient discontinued azathioprine use and notified Dr. Monson via the patient portal, but no response has been received yet. Additionally, the patient reports longstanding restless leg syndrome exacerbated during the evening, inadequately managed with tizanidine. She expresses interest in alternative treatment options. Her migraine headaches, particularly visual migraines, have intensified in frequency, with three episodes occurring in one day, which is atypical for her. Stress and changes in her medication regimen may be contributing factors. Postnasal drip and clear nasal drainage are noted, without concurrent use of anti-allergy medications. However, she has used Zyrtec D in the past with beneficial effects, but has not been using it recently. For her osteoarthritis pain, the patient uses tramadol but has run out of supply; she requests an increase from the usual 14-day supply. She experiences significant joint discomfort, inhibiting movement when medication is insufficient. Review of Systems - Neurological: Reports visual migraines. - Respiratory: Reports postnasal drip; denies current use of allergy medications. - Musculoskeletal: Reports leg discomfort specifically during evenings; reports osteoarthritis pain. Physical Exam Appearance: Alert. Oriented X3. No acute distress. Head: Normal external exam. Normocephalic. Atraumatic. Eyes: Pupils are equal, round, and reactive to light. Extraocular movements intact. Conjunctiva and sclera normal. Eyelids normal. Ears: External auditory canal normal. Tympanic membranes normal. Throat: Pharynx normal. Uvula midline. Moist mucous membranes. Neck: Normal inspection. Neck supple. Full range of motion. No adenopathy. Thyroid Normal. No meningeal signs. No neck mass noted. Cardiovascular: Normal heart rate and rhythm. Heart sound normal. No murmurs noted. Pulses normal throughout. Respiratory: No respiratory distress. Painless inspiration. Breath sounds normal. No wheezes/rales/rhonchi noted. Chest nontender. No accessory muscle usage noted or decreased air movement noted. Abdomen: Soft and nontender. Bowel sounds normal in all 4 quadrants. No distention noted. No organomegaly noted. No visible injury noted. Back: No costovertebral angle tenderness. Full range of motion noted. Skin: Skin warm and dry. Normal skin color. Normal skin turgor. No rashes/lesions/lacerations noted. Extremities: No lower extremity edema. Extremities exhibit normal range of motion. Extremities nontender. Neuro: Oriented X 3. No motor deficit. No sensory deficit. Reflexes normal. Plan - Prescribe a trial of gabapentin 100 mg at night to manage restless leg syndrome. - Issue new prescription for tramadol, adjusted to a 30-day supply, to manage osteoarthritis pain until November 01, followed by pain management consult. - Advise cessation of azathioprine and consult with Dr. Monson regarding medication intolerance. - Recommend the use of ciuv-par-eflfjjv Zyrtec D for postnasal drip symptoms. - Monitor migraine frequency and response to current stressors, suggest Tylenol or Motrin for symptomatic relief. Patient was informed and verbally consented to the use of an ambient scribe for clinic note documentation during this visit. Discussion Notes I discussed the likely cause of nausea and vomiting being medication intolerance with azathioprine. We addressed alternative management strategies for restless leg syndrome and adjusted the patient's tramadol prescription to better manage her osteoarthritis pain. I advised stopping the azathioprine and will communicate with Dr. Monson for alternatives. The patient's postnasal drip symptoms can be managed with cauu-kqm-acdrjla antihistamines, such as Zyrtec D, which she has previously tolerated well. Visual migraines appear stress-related, and symptomatic treatment with Tylenol or Motrin may suffice unless symptoms persist. Patient Instructions - Cease azathioprine use and await further instruction from Dr. Monson. - Begin taking gabapentin 100 mg at bedtime for restless leg syndrome. - Use Zyrtec D for relief from postnasal drip. - Continue current medication regimen without azathioprine; use prescribed tramadol for osteoarthritis pain. - Consult pain management by the set date of November 01. - Note any changes in migraine patterns and report if they persist. - Follow up with Dr. Monson and Dr. Martinez as planned.
--- OUTSIDE RECORDS SUMMARY | 2024-10-07 14:34 | XMS_ITS | Encounter Summary ---
Author Organization [employer] Address [address] [facility] [place] [address] Care Team Providers Care Transitional Nurse Name Role Phone Provider, Not In System Primary Care Provider Un available Encounter Details Date Type Department Care Team (Late st Contact Info) Description 10/07/2024 Patient Outreach [facility] [address] [place] [id number] Hiwot Smith LPN Social History Tobacco Use Types Packs/Day Years [...] on filedocumented in this encounter Care Teams Transitional Nurse Relationship Specialty Start Date End Date Provider, Not In System PCP - General Family Medicine 06/19/23 documented as of this encounter
--- OUTSIDE RECORDS SUMMARY | 2024-10-07 14:35 | XMS_ITS | Encounter Summary ---
Author Organization [employer] Address [address] [facility] [address] [place] [address] Care Team Providers Care Environmental Engineer Name Role Phone Peace Ruano Primary Care Provider Unavailab le Peace Ruano Unavailable Unavailable Provider, Not In System Primary Care Provider Un available Encounter Details Date Type Department Care Team (Late st Contact Info) Description 07/22/[address] [id number] Peace Ruano FNP Social History Tobacco Use [...] on filedocumented in this encounter Care Teams Environmental Engineer Relationship Specialty Start Date End Date Peace Ruano FNP PCP - General Family Medicine 06/27/22 06/18/23 Provider, Not In System PCP - General Family Medicine 06/19/23 Peace Ruano FNP Family Medicine 06/27/22 06/18/23 documented as of this encounter
--- OUTSIDE RECORDS SUMMARY | 2024-10-07 14:35 | XMS_ITS | Data Portability ---
Author Organization [facility], [facility] Address [address] [place] [address] Care Team Providers Care Bi Tri Operator Name Role Phone JYOTHI CLOUD Phys. Med. & Rehab LESLI LEIGH Mucker Operator Assessment Encounter Date Assessment Date Assessment [...] symptoms. R sided BPPV has resolved and Maynard-Hallpike is negative. She has slight symptoms when testing the L. These are less intense and at this time, pt feels that they are not limiting her function. Left side was treated today with HOOP PUNCH OPERATOR HELPER. Pt prefers to D/C despite positive findings on the L and will return if these symptoms should pose any restrictions in her function. D/C PT [email or web address] Not available 05/07/2022 07:57:01 04/03/2023 04/03/2023 IE 04/03/2309/09 Plan: 1 x/week up to 10 visits over 12 weeks Plan to use CPT codes: 15789 Therapeutic Exercise 09199 Neuromuscular ReEducation 77798 Manual 40804 Therapeutic Activity A: Dolly is a 72 [...] Treatments may include (as appropriate/as indicated): Therapeutic exercise(15314)/Ne uromuscular Reeducation (55652)/Manual Therapy (42867)/Therapeuti c Activities (20209)/Self-care management(86141)/ Attended Electrical Stimulation (54047)/PRN modalities/dry needling/Gait Training (36006)/canalith repositioning(9599 2) [email or web address] Not available 01/26/2024 14:35:58 01/28/2024 01/28/2024 Plan: [...] Treatments may include (as appropriate/as indicated): Therapeutic exercise(79873)/Ne uromuscular Reeducation (43218)/Manual Therapy (73850)/Therapeuti c Activities (07120)/Self-care management(73836)/ Attended Electrical Stimulation (62916)/PRN modalities/dry needling/Gait Training (19194)/canalith repositioning(9599 2) [email or web address] Not available 01/28/2024 16:25:25 Plan of Treatment [...] g Physic hernando: Mary Ann Oliver ms [facility] (Imaging) [address], [place], [address], 08/01/2022 10:24:55 Result Notes None recorded. Problems Name Problem SNOMED Code Status Onset Date Resolution Date Notes Provider Name and Address Organization Details Recorded Time Measuremen t finding outside reference range 500927615 Completed 07/20/2013 Not Available [facility] 3 02:03:25 Benign essential hypertensi on 7423718 Active Sonia tabares, [facility] 6 08:43:18 Multiple joint pain 18459385 Completed 07/20/2013 Not Available [facility] 3 02:02:27 Primary fibromyalg ia syndrome 31804971 Active Not Available [facility] 3 03:15:35 Posterior rhinorrhea 54582590 Completed 12/25/2016 Peace Ruano NP [address] [place] [address], [address] , [facility] 7 13:02:33 Dizziness 498396785 Completed 07/20/2013 Not Available [facility] 3 02:02:09 Raynaud's disease 407012331 Completed 12/25/2016 Peace Ruano NP [address] [place] [address], [address] , [facility] 7 13:02:22 Limited systemic sclerosis 202559029 Active Lesli Leigh MD [address] [place] [address], [address] , [facility] 6 08:40:52 Paronychia 22477053 Completed 12/25/2016 Peace Ruano NP [address] [place] [address], [address] , [facility] 7 13:02:26 Finger ulcer 237044661 Completed 12/25/2016 Peace Ruano NP [address] [place] [address], [address] , [facility] 7 13:02:28 Raynaud's phenomenon 762711273 Active Lesli Leigh MD [address] [place] [address], [address] , [facility] 6 08:40:52 Benign paroxysmal positional vertigo 252576527 Active 2017 Peace Ruano NP [address] [place] [address], [address] , [facility] 8 13:35:50 Problem Notes None recorded. Procedures Surgical History Date Name Laterality Status Provider Name and Address Organization Details Recorded Time 01/28/20 24 Neuromuscular re-education completed SHANTAL LIN, PT [address] [place], [address], [facility] 01/28/2024 16:24:21 01/28/20 24 Treatment and Advice completed SHANTAL LIN, PT [address] [place] [address], [address], [facility] 01/28/2024 16:11:11 01/26/20 24 Physical Activity Counselling completed SHANTAL LIN, PT [address] [place], [address], [facility] 01/26/2024 11:19:50 01/26/20 24 33931: PT Eval Low Complexity completed SHANTAL LIN, PT [address] [place] [address], [address], [facility] 01/26/2024 11:19:54 01/26/20 24 Treatment and Advice completed SHANTAL LIN, PT [address] [place], [address], [facility] 01/26/2024 11:41:10 04/03/20 23 Smoking Cessation Counselling completed Jyothi Cloud, PT [address] [place], [address], [facility] 04/03/2023 11:46:14 04/03/20 23 Physical Activity Counselling completed Jyothi Cloud, PT [address] [place], [address], [facility] 04/02/2023 16:34:25 04/03/20 23 74147: PT Eval Low Complexity completed Jyothi Cloud, PT [address] [place], [address], [facility] 04/02/2023 16:34:25 04/03/20 23 Treatment and Advice completed Jyothi Cloud, PT [address] [place], [address], [facility] 04/03/2023 15:01:47 04/28/20 22 Physical Activity Counselling completed Joanna Thurman, PT [address] [place], [address], [facility] 04/28/2022 11:56:57 11/27/19 22 Physical Activity Counselling completed Joanna Thurman, PT [address] [place], [address], [facility] 11/26/2021 09:01:22 01/01/20 19 Medicare Wellness Visit completed Lenora Johnson [facility] 12/31/2018 09:30:08 12/24/19 19 Toenail Avulsion completed Georgina Joshi, DPOpal [address] [place], [address], [facility] 12/24/2018 07:47:50 11/26/19 19 Physical Activity Counselling completed Joanna Thurman, PT [address] [place], [address], [facility] 11/26/2018 08:09:43 07/12/20 18 Physical Activity Counselling completed Joanna Thurman, PT [address] [place] [address], [address], [facility] 07/12/2018 16:58:41 03/10/20 18 Physical Activity Counselling [place], [address], [facility] 03/11/2018 07:19:23 03/10/20 18 48087: PT Eval, Moderate [place]ity [place], [address], [facility] 03/11/2018 07:19:32 12/30/19 18 Medicare Wellness Visit completed Annie Renteria [facility] 12/29/2017 13:21:17 11/12/19 18 Physical Activity Counselling completed Che Woods [address] [place] [address], [address], [facility] 11/11/2017 13:04:00 11/12/19 18 59920: PT Eval Low Complexity [place], [address], [facility] 11/11/2017 13:04:00 07/21/20 17 Physical Activity Counselling [place], [address], [facility] 07/21/2017 19:51:12 07/21/20 17 33512: PT Eval Low [place]ity [place], [address], [facility] 07/21/2017 19:51:12 12/27/19 17 45265: Therapeutic Exercise completed Jyothi Cloud, PT [address] [place], [address], [facility] 12/26/2016 13:14:34 12/27/19 17 67664: Ultrasound (1:1) completed Jyothi Cloud, PT [address] [place], [address], [facility] 12/26/2016 13:14:34 12/24/19 17 62714: Therapeutic Exercise completed Jyothi Cloud, PT [address] [place], [address], [facility] 12/23/2016 13:48:37 12/24/19 17 33924: Ultrasound (1:1) completed Jyothi lCoud, PT [address] [place], [address], [facility] 12/23/2016 13:48:21 12/17/19 17 09208: Therapeutic Exercise completed Jyothi Cloud, PT [address] [place], [address], [facility] 12/16/2016 22:06:28 11/27/19 17 Physical Activity Counselling completed Jyothi Cloud, PT [address] [place], [address], [facility] 11/26/2016 10:36:36 11/27/19 17 62548: PT Eval, Moderate Complexity completed Jyothi Cloud, PT [address] [place], [address], [facility] 11/26/2016 21:17:20 07/14/20 16 Physical Activity Counselling completed Che Woods [address] [place], [address], [facility] 07/14/2016 21:45:18 06/17/20 16 Medicare Wellness Visit completed Nuha Sanchez RN [facility] 06/17/2016 08:19:35 03/31/20 16 51315: PT Evaluation completed Enrique Zaman, PT [address] [place], [address], [facility] 03/31/2016 14:00:35 03/28/20 16 POC Strep Testing completed Imelda Godinez MA [facility] 03/31/2016 11:15:45 04/25/20 15 89996: Therapeutic Exercise completed Jyothi Cloud, PT [address] [place], [address], [facility] 04/25/2015 12:45:33 04/25/20 15 20531: Manual Therapy completed Jyothi Cloud, PT [address] [place], [address], [facility] 04/25/2015 12:45:33 04/18/20 15 37132: PT Evaluation completed Jyothi Cloud, PT [address] [place], [address], [facility] 04/18/2015 12:46:49 08/22/20 14 Incise and Drain with packing completed Peace Ruano, CYTOGENETICIST [address] [place], [address], [facility] 08/22/2014 14:22:12 Imaging Results Imaging Date Name Status LastModified by Organiz ation Details LastModified Time 07/30/2022 MAMMO, screening, tomosynthesis, bilateral completed [facility] ([facility]) [address], [place], [address], 08/01/2022 10:24:55 Procedure Notes None recorded. Medical Equipment None Reported. Allergies Allergen ID Allergen Name Allergen Category Reaction Reaction Severity Criticality Documentation Date Start Date Code Code System Note Provider Name and Address Organization Details Recorded Time 328406 propranol ol medicatio n Not available Not available Not available 04/15/2013 8787 RxNorm dizzy at lowes t dose Glenis Slade PA-C [address] [facility], [address], [facility] 3 07:44:52 29107 codeine medicatio n Not available Not available Not available 02/06/2012 2670 RxNorm felt like she was going to Latasha Domínguez null, [facility] 3 11:34:42 Medications Name Sig Start Date Stop Date Status Note LastModified by Organization Details LastModified Time prednison e tab 20mg active Not Available Not Available Not Available meclizine tab 25mg active duplicat e Not Available Not Available Not Available tizanidin e tab 4mg active Not Available Not Available No t Available metoprolo l tab 25mg er active Not Available Not Available Not Available diltiazem cap 120mg er active Not Available Not Available Not Available metoprol tar tab 25mg active duplicat e Not Available Not Available Not Available levothyro ramesh tab 50mcg active Not Available Not Available Not Available allergy rel tab 10mg active aka Zyrtec Not Available Not Available Not Available levothyro [...] bromide 42 mcg (0.06 %) nasal spray Shanks 2 sprays 3 times a day by [...] Status Former Smoker Maegan Chavez LPN null, [facility] 02/06/2012 14:55:41 Do You Have An [...] not available 01/25/2015 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 0 Information not available 12/01/2012 Are There Any Guns Present In Your Home? No Information not available 01/02/2014 Live Alone Or With Others? With Others Information not available 01/02/2014 Does The Patient Have Difficulty Speaking American? No Information not available 01/02/2014 Does The Patient Have Difficulty Reading American? No Information not available 01/02/2014 Patient Has [...] virus, quadrivalent, PF 4 completed Not Available [facility] 09/17/2019 02:18:56 Influenza, split virus, trivalent, PF 4 completed Not Available [facility] 09/17/2019 02:31:43 zoster live 4 completed Not Available [facility] 09/17/2019 02:16:36 Tdap 5 completed Not Available [facility] include 234 beds at the [facility] 09/17/2019 02:19:26 Influenza, split virus, quadrivalent, PF 5 completed Not Available Counts include 234 beds at the [facility] 09/17/2019 02:25:39 Td(adult) unspecified formulation 4 [facility]2012 11:05:45 Influenza, high-dose, trivalent, PF 6 completed Not Available Counts include 234 beds at the [facility] 09/17/2019 02:21:05 Influenza, high-dose, trivalent, PF 8 completed Not Available Counts include 234 beds at the [facility] 09/17/2019 02:35:35 Influenza, high-dose, trivalent, PF 9 completed Not Available Counts include 234 beds at the [facility] 09/17/2019 02:25:35 Past Encounters Encounter ID Performer Location Encounter Start Date Encounter Closed Date Diagnosis/Indication Diagnosis SNOMED-CT Code Diagnosis ICD10 Code Diagnosis Note [id number] Rheumatza adames [address] [place] [address] 02/06/2012 14:37:13 02/09/2012 08:16:56 [id number] Suresh adames [address] [place] [id number] 03/08/2012 15:44:48 03/08/2012 16:12:52 [id number] Suresh adames [address] [place] [id number] 08/09/2012 07:58:37 08/16/2012 08:50:53 [id number] Vida ROY [facility], OFFICE [address] [place] [address] [place] [id number] 11/04/2012 11:15:14 11/04/2012 13:42:01 [id number] Vida ROY [facility], OFFICE [address] [place] [address] [place] [id number] 11/18/2012 16:14:15 11/19/2012 07:57:17 [id number] SUNNY Pham [facility], OFFICE [address] [place] [address] [place] [id number] 11/30/2012 14:08:06 12/01/2012 07:49:12 [id number] Idalia [facility], [address] [facility] [place] [address] 12/01/2012 09:56:09 12/02/2012 09:24:43 [id number] Idalia Anthony [facility], [address] [facility] [place] [id number] 12/13/2012 09:52:08 12/14/2012 07:42:08 [id number] Michelle Jett , [facility], OFFICE [address] [place] [address] [place] [id number] 12/17/2012 08:28:56 12/17/2012 09:27:12 Screening mammography [id number] Nuha Iniguez MA , [facility], OFFICE [address] [place] [address], [place] [id number] 02/03/2013 09:46:53 02/03/2013 10:54:35 [id number] Glenis Slade PA-C , [facility], OFFICE [address] [place] [address] [place] [id number] 02/17/2013 08:57:54 02/17/2013 09:34:44 [id number] Yun Sullivan , [facility], OFFICE [address] [place] [address], [place] [id number] 03/10/2013 07:07:22 03/10/2013 07:45:07 [id number] Lesli Leigh MD , [facility], OFFICE [address] [place] [address] [place] [id number] 04/15/2013 07:18:02 04/15/2013 07:42:12 Benign essential hypertension 4050743 Well controlled today with good rate control as well. She is back on Metoprolol alternatin g 1 tab 1/2 tab qod. Diltiazem >> dizziness, Ryan >> good pressure control but no rate control. Will stay with this for now. F/U prn. Raynaud's disease 251109722 Now has 3 cold fingers. Recommend trial of acupunctur e - she has seen Lana Fairbanks in the past and likes her very much. Agrees to try. Will f/u with outcome and I will continue to investigat e other possible causes. Dizziness 390410355 Cont inues. Meclizine continues to help. Try acupunctur e. If to no avail, may consider imaging as this has continued for quite awhile - ?sinuses, ?neck. [id number] Idalia Cruz Physical [facility], [address] [address] 05/23/2013 09:24:44 05/26/2013 09:02:53 Benign paroxysmal positional vertigo 908547616 [id number] Idalia Cruz Physical [facility], [address] [place] [address] 05/30/2013 14:59:03 06/01/2013 14:06:23 Benign paroxysmal positional vertigo 556478084 [id number] Idaliadulce Cruz Physical [facility], [address] [place] [address] 06/02/2013 07:50:52 06/03/2013 08:12:15 Benign paroxysmal positional vertigo 073577754 [id number] Idalia Cruz [facility], [address] [place] [address] 06/08/2013 10:00:19 06/09/2013 08:19:39 Benign paroxysmal positional vertigo 550378074 [id number] Rheumatol rosangela, [address] [place] [address] 08/19/2013 10:39:26 08/22/2013 10:10:10 Raynaud's disease 280797871 This patient has developed Raynaud's over the [...] in 6 months. Limited sy stemic sclerosis 886781529 At this point incomplet e CREST syndrome . [id number] [place] Limon, [facility], OFFICE [address] [facility] [place] [id number] 09/15/2013 09:05:33 09/15/2013 09:56:59 Benign paroxysmal positional vertigo 675917057 Ongoing. Will see Beatrice Woods for eval and treatment. Continue to use meclizine as directed. Stay hydrated. Carpal mayank jason syndrome 77764454 Exam consistent with mild-moder ate carpal tunnel. Reviewed conservati ve vs aggressive treatment - injections , surgery. Will start with braces at nighttime and using ice bid. She can also use NSAIDS prn. Call or RTO if sxs persist/wo rsen. Nasal congestion 44050977 Allergies vs chronic sinusitis? Start Flonase. Continue nasal saline, claritin. [id number] [place] Limon, [facility], OFFICE [address] [facility] [place] [id number] 10/27/2013 10:03:07 10/27/2013 11:03:06 Influenza vaccine needed [id number] 106 Paronychia 55608250 Xray to r/o continued presence of foreign body. Start cephalexin as directed. Advised warm soaks with Epsom salt at least bid-tid. RTO if sxs persist/wo rsen. [id number] Che Woods [facility], [address] [address] 12/19/2013 15:24:50 12/19/2013 16:11:32 Benign paroxysmal positional vertigo 637981380 [id number] Che Woods [facility], [address] [place] [address] 12/21/2013 17:13:35 12/22/2013 08:19:10 Benign paroxysmal positional vertigo 981741852 [id number] Che Woods [facility], [address] [place] [address] 12/27/2013 14:54:41 12/28/2013 16:20:22 Benign paroxysmal positional vertigo 224286323 [id number] Kylah Carver [facility], OFFICE [address] [place] [address] [place] [address] 01/02/2014 08:21:00 01/02/2014 09:17:37 Adult health examination 051431604 pap done today, mammogram due 2014, colonoscop y due now, tdap and zostavax given today. Pt counselled on diet, exercise, appropriat e calcium intake, and stress management . see Risk Assessment and Lifestyle Change Counseling section above Screening for malignant neoplasm of colon 464013583 Varicella vaccination 15812246 Administra tion of diphtheria, pertussis, and tetanus vaccine 380980530 Screening for malignant neoplasm of cervix 659146456 Benign ess ential hypertension 3628771 Well controlled , below goal of under 140/90. Can cut back metoprolol to every other day. Continue to monitor BP at home, may be able to d/c completely . Hypothyroidism 34803155 Due for labs. She is feeling some palpitatio ns, so may be over compensate d. Will check labs and f/u with results. If palpitatio ns continue, consider holter monitor. [id number] Che Woods [facility], [address] [place] [address] 07/03/2014 13:01:38 07/04/2014 19:55:43 Hip pain 70096756 [id number] [facility], OFFICE [address] [place] [address] [place] [address] 07/04/2014 07:58:34 07/04/2014 08:30:29 Influenza vaccine needed 1001150696 106 Varicella vaccination 45037649 Benign ess ential hypertension 7608205 Well controlled , at goal of <140/90. Continue medication s as directed. Excellent work with diet & exercise. Hypothyroidism 65206961 Due for labs. She is feeling some palpitatio ns, so may be over compensate d. Will check labs and f/u with results. If palpitatio ns continue, consider holter monitor. [id number] Che Woods [facility], [address] [place], [place] [address] 07/06/2014 08:31:30 07/07/2014 12:32:29 Hip pain 21115595 [id number] Che Woods [facility], [address] [place], [place] [address] 07/13/2014 15:06:16 07/13/2014 16:21:42 Hip pain 95605094 [id number] Che Woods [facility], [address] [place], [place] [address] 07/20/2014 09:27:05 07/21/2014 08:20:11 Hip pain 46838777 [id number] MP Huerta, [facility], OFFICE [address] [facility] [place], [place] [id number] 08/22/2014 13:55:53 08/22/2014 14:19:51 Onychia 846672143 Keep clean and dry. Wound care instructio ns reviewed. Continue to soak with Epsom salt and warm water. Will f/u with culture results. [id number] Yun Sullivan , [facility], OFFICE [address] [facility], [place] [address] 09/11/2014 14:07:15 09/11/2014 14:56:24 Paronychia of finger 769544622 rt 4th finger./ mild recurrent / grew citrobacte r last time/ will try Bactrim/ has chronic component all nails? refer dermatolog y [id number] Kylah ROY, [facility], OFFICE [address] [facility], [place] [address] 01/25/2015 13:19:27 01/25/2015 14:20:09 Screening for malignant neoplasm of colon 194333570 Screening mammography 25013886 Adult heal th examination 391227174 see Risk Assessment and Lifestyle Change Counseling section above Administra tion of diphtheria, pertussis, and tetanus vaccine 831924698 [id number] Yun ROY, [facility], OFFICE [address] [facility], [place] [address] 04/17/2015 08:54:07 04/17/2015 09:21:59 Lifestyle 726946932 Sciatica 40101417 [id number] Jyothi Cloud, PT Physical Therapy, [address] [place] [address] 04/18/2015 10:08:11 04/18/2015 16:11:08 Hip pain 53768259 Sciatica 75761551 Inflammati on of sacroiliac joint 57175661 [id number] Jyothi Cloud, PT Physical Therapy, [address] [place] [address] 04/25/2015 08:36:09 04/26/2015 08:47:50 Hip pain 58092187 Sciatica 54749578 Inflammati on of sacroiliac joint 16569532 [id number] Yun Sullivan , [facility], OFFICE [address] [place] [address] [place] [address] 05/16/2015 14:21:12 05/16/2015 15:02:05 Influenza vaccine needed 4636550689 106 Onychomycosis 313944656 Noted Id reaction, I suspect a fungal infection. Reviewed soaking with Epsom salts, and keeping skin clean & dry. Use of clotrimazo le and oral fluconazol e reviewed. Discussed risks, benefits, side effects, and limitation s of medication . Lifestyle 971924138 [id number] Peace Ruano NP , [facility], OFFICE [address] [facility] [place] [address] 06/07/2015 14:19:45 06/07/2015 14:52:54 Onychomycosis 960029245 B35.1 Continued Id reaction, I suspect an ongoing fungal infection. Reviewed soaking with Epsom salts, and keeping skin clean & dry. Use of clotrimazo le and oral terbinafin e reviewed. Discussed risks, benefits, side effects, and limitation s of medication . Consulted with BWW on case. [id number] Che Woods Physical [facility], [address] [place] [address] 06/21/2015 07:50:12 06/21/2015 10:45:22 Benign paroxysmal positional vertigo 393472446 H81.13 [id number] Che Woods [facility], [facility] [address] [facility] [place] [address] 06/25/2015 12:54:48 06/25/2015 18:04:06 Benign paroxysmal positional vertigo 775819361 H81.13 [id number] Peace Ruano NP FP, [facility], OFFICE [address] [facility] [place] [address] 07/05/2015 14:11:01 07/05/2015 15:37:21 Benign essential hypertension 6923377 I10 Well controlled , at goal of <140/90. Encouraged increased activity, weight loss, heart healthy diet. continue medication s as directed. Raynaud's disease 397659 006 I73.00 Very likely part of a CREST-like picture. Has f/u with Dr. Leigh tomorrow. [id number] Vida Orellana Rheumatol rosangela, [facility] [address] [facility] [address] 07/06/2015 08:41:00 07/16/2015 07:48:13 Raynaud's disease 385866793 I73.00 Basically stable pattern of Raynaud's, but [...] dressing warm etc. Limited sy stemic sclerosis 716883462 M34.9 Limited scleroderm a with features that [...] to monitor for pulmonary hypertensi on. Paronychia 48001112 L03. 872 [id number] Lesli Leigh MD Rheumatol rosangela, [address] [place] [address] 09/07/2015 08:44:36 09/07/2015 12:07:26 Limited systemic sclerosis [id number] M34.9 Limited scleroderm a with features that include Raynaud's, mild sclerodact yly, telangiect shayan, symptoms of mild esophageal dysmotilit y. She has a high titer anticentro mere antibody. Had normal echocardio gram (the ecchocardi ogram report suggested R heart catheteriz ation, but this is not clinically indicated) . Routine f/u 6 mo. Finger ulcer 910788628 L 98.499 Distal digital ulceration R middle [...] if any worsening Raynaud's. Raynaud's phenomenon 266 834890 I73.00 [id number] [facility], [address] [place] [address] 10/02/2015 09:31:48 10/03/2015 23:23:19 Benign paroxysmal positional vertigo 945736017 H81.13 [id number] [place] Bender, [facility], OFFICE [address] [facility] [place] [address] 03/28/2016 10:30:17 03/28/2016 11:39:24 Acute upper respiratory infection 69690964 J06.9 Educated patient that URI is a [...] resolve in 2-4 weeks. Coxsackie virus disease 176917551 B34.1 Viral infection, very likely hand foot and mouth disease. Reviewed supportive care and return precaution s. [id number] Belkis Tabares MD , [facility], OFFICE 329 [facility] [place] [address] 03/29/2016 09:56:21 03/29/2016 10:42:35 Spasm of back muscles 362451995 M62.830 We reviewed the basic pathophysi ology [...] motrin 600 mg three times a day [id number] Enrique Zaman, PT Physical Therapy, [facility] [address] [facility] [address] 03/31/2016 13:37:00 04/01/2016 08:39:49 Low back pain 756327778 M54.5 Sacroiliac joint pain 20 1691526 M53.3 [id number] Jeanine ROY, [facility], OFFICE [address] [place] [address] 04/07/2016 11:48:34 04/07/2016 13:29:[address] was negative in Trthe ED, but pt has continued sinus congestion , sore throat, PND. Empiric tx with abx as nothing else is working. Reviewed medication risks, benefits, side effects, and limitation s. Anti-nucle ar factor detected 633633234 R76.8 Grossly positive CLIFF drawn in 07/2015. Now in the context of elevated ESR, ? positive blood culture, and pharyngiti s. Will check back with rheumatolo gy for further eval and rx. [id number] Lesli Leigh MD Rheumatol rosangela, [facility] [address] [facility] [address] 04/16/2016 08:55:37 04/16/2016 09:34:02 Limited systemic sclerosis 724449178 M34.9 Limited scleroderm a with features that [...] be followed. Routine f/u 6 mo. Pneumonitis 271613109 J1 2.9 Recent small RML consolidat ion on CXR. Repeat in about 2 weeks. Raynaud's phenomenon 266 816210 I73.00 Continue Amlodipine . Used some NTG ointment las winter. Primary fi bromyalgia syndrome 13918315 M79.7 The patient has some fairly mild diffuse musculoske letal pains associated with a prominent sleep disruption . At the moment she is not bothered much, has fair energy and feels well.Encou raged regular exercise, return for this as needed.. [id number] Peace uRano NP FP, [facility], OFFICE [address] [facility] [address] 06/17/2016 08:15:19 06/17/2016 09:12:56 Adult health examination 936523356 Z00.00 see Risk Assessment and Lifestyle Change Counseling section above Counseling 323709785 Z71 .9 Encouraged increased activity and joining a gym, pt agreeable and plans to join a gym, will continue to eat a low fat and vegan diet, also encouraged mediterran marion diet Active or passive immunization 559017184 Z23 [facility] 16538918 H11.31 Asymptomat ic, instructed if unresolved in 10 days to F/U Benign ess ential hypertension 1044491 I10 BP at goal, [facility] [id number] [facility], [address] [address] 07/14/2016 15:50:36 07/15/2016 08:06:45 Benign paroxysmal positional vertigo 698560060 H81.13 [id number] Che Woods Physical [facility], [address] [address] 07/31/2016 11:14:06 08/04/2016 07:42:56 Benign paroxysmal positional vertigo 490986551 H81.13 [id number] Che Woods Physical [facility], [address] [address] 08/06/2016 16:20:02 08/07/2016 10:57:56 Benign paroxysmal positional vertigo 749875146 H81.13 [id number] Che Woods Physical [facility], [address] [address] 08/21/2016 07:51:48 08/21/2016 16:07:07 Benign paroxysmal positional vertigo 826174703 H81.13 [id number] Che Woods Physical [facility], [address] [address] 09/15/2016 09:22:57 09/15/2016 15:40:37 Benign paroxysmal positional vertigo 202669192 H81.13 [id number] Enrique Jones MD , [facility], OFFICE [address] [place] [address] 09/18/2016 08:45:46 09/18/2016 09:28:05 Palpitations 88156760 R00.2 continue to avoid caffeine, sudafed, holter in past unrevealin g, followup as needed. Discussed exercise. Obesity 282553544 E66.9 retiring next week, discussed Y program [id number] Jyothi Cloud, PT Physical Therapy, [address] [place] [address] 11/26/2016 10:06:14 11/27/2016 08:07:38 Low back pain 697581303 M54.5 Sacroiliac joint pain 20 1531877 M53.3 [id number] Ambrocio Baugh MD Sports Medicine, [address] [place] [address] 12/04/2016 13:20:22 12/05/2016 09:20:39 Hip pain 07317651 M25.551 M25.552 Rajani is a 66-year-ol d [...] a trochanter ic bursa corticoste roid injection. [id number] Jyothi Cloud, [facility], [address] [place] [address] 12/16/2016 16:10:26 12/17/2016 13:16:15 Low back pain 230646480 M54.5 Sacroiliac joint pain 20 0136010 M53.3 [id number] Jyothi Cloud PT Physical Therapy, [address] [place] [address] 12/23/2016 13:06:34 12/23/2016 14:08:48 Low back pain 414678242 M54.5 Sacroiliac joint pain 20 6875720 M53.3 [id number] Peace Ruano NP , [facility], OFFICE [address] [place] [address] [place] [address] 12/25/2016 12:38:08 12/25/2016 13:16:45 Limited systemic sclerosis 303756691 M34.9 Sxs improved with use of CCB. Continue. Will f/u with rheumatolo gy as directed. Benign ess ential hypertension 1096895 I10 BP at goal of <140/90. Continue diet, exercise, medication s. [id number] Jyothi Cloud, PT Physical Therapy, [address] [place] [address] 12/26/2016 12:57:05 12/26/2016 14:20:48 Low back pain 555574289 M54.5 Sacroiliac joint pain 20 5226574 M53.3 [id number] Jyothi Cloud, PT Physical Therapy, [address] [place] [address] 12/26/2016 14:53:31 12/26/2016 14:53:47 [id number] Belkis Tabares MD , [facility], OFFICE [address] [facility] [place] [address] 01/13/2017 13:02:05 01/13/2017 16:52:17 Acute allergic serous otitis media 17655378 H65.119 Tincture of time - acute serous [...] helpful. RTC if pain or fevers develop. [id number] TIMMY Narayanan , [facility], OFFICE [address] [facility] [place] [address] 05/06/2017 15:02:11 05/06/2017 15:30:13 Hypothyroidism 31840270 E03.9 Pt very fatigued latelyLast TSH 4.79 in 2014Taking levothyrox ine 75 mcgWill check TSH today and follow up with result and plan of care as needed Benign ess ential hypertension 4407665 I10 Well-contr olled on HCTZ and amlodipine , but with potential side effects of amlodipine , including dizziness and bilateral foot edemaWill trial amlodipine 2.5 mg daily, and she will return to Dr Leigh to discuss repeat echo and changing medication for rate control [id number] Lesli Leigh MD Rheumatol rosangela, [address] [address] 05/25/2017 13:32:18 05/25/2017 16:45:06 Limited systemic sclerosis 597275582 M34.9 Limited scleroderm a with features that include Raynaud's, mild sclerodact yly, telangiect shayan, symptoms of mild esophageal dysmotilit y. She has a high titer anticentro mere antibody. Had normal echocardio gram. No change in any symptoms. Did have digital ulceration last October, slowly healed. Will update labs. Routine f/u 6 mo. Tachycardia 9867325 R00. 0 Actually upper normal HR, generally [...] when weather gets cooler. Raynaud's phenomenon 266 735812 I73.00 See above. Digital ulcer last October. Resume amlodipine in cooler weather. Used some NTG ointment last winter. Continue careful attention to keeping adequately warm. Bursitis of shoulder 239 732739 M75.51 Rotator cuff tendinitis / bursitis R shoulder.R efer for PT. [id number] [facility], [address] [address] 07/21/2017 08:51:26 07/21/2017 20:28:31 Shoulder pain 21871428 M25.511 M25.512 Dizziness 940824511 R42 [id number] Lesli Leigh MD Rheumatol rosangela, [address] [address] 07/31/2017 09:54:36 07/31/2017 11:14:12 Limited systemic sclerosis 447147630 M34.9 Limited scleroderm a with features that [...] f/u 6 mo. Paronychia of finger 444 824058 L03.019 L 4th finger. The finger itself is well perfused at present, though he has significan t Raynaud's at times and has had digital ulceration in past.Discu ssed treatment paronychia . Soak, Keflex.Als o try Nitro-bid ointment for this one finger to help ensure good perfusion. Raynaud's phenomenon 266 819670 I73.00 See above. Digital ulcer last October. Now paronychia l infection. Continue careful attention to keeping adequately warm. Continue amlodipine . [id number] [facility], [address] [place] [address] 08/03/2017 11:25:35 08/03/2017 12:22:14 Shoulder pain 49981189 M25.511 M25.512 Dizziness 493145913 R42 [id number] Che Woods Physical [facility], [address] [address] 08/06/2017 11:19:10 08/07/2017 09:54:28 Shoulder pain 61537165 M25.511 M25.512 Dizziness 108901493 R42 [id number] [facility], [address] [place] [address] 08/25/2017 12:22:51 08/25/2017 12:58:39 Shoulder pain 95032758 M25.511 M25.512 Dizziness 875542292 R42 [id number] Che Woods Physical [facility], [address] [place] [address] 11/11/2017 12:23:27 11/12/2017 16:37:09 Benign paroxysmal positional vertigo 287239614 H81.12 [id number] Peace Ruano NP FP, [facility], OFFICE 329 [facility] [place] [address] 11/12/2017 14:08:00 11/12/2017 16:23:31 Dizziness 723534847 R42 Has appt with PT as well. Screening mammography 24 237090 Z12.31 Acute sinusitis 51349124 J01.90 Pt presents today for evaluation of [...] time. Screening for malignant neoplasm of colon 423616182 Z12.11 [id number] Che Woods Physical [facility], [address] [place] [address] 11/12/2017 14:34:59 11/12/2017 16:34:28 Benign paroxysmal positional vertigo 506968863 H81.12 [id number] Che Woods Physical [facility], [address] [place] [address] 11/17/2017 09:22:32 11/17/2017 12:14:15 Benign paroxysmal positional vertigo 512869276 H81.12 [id number] Che Woods Physical [facility], [address] [place] [address] 12/02/2017 11:22:19 12/02/2017 13:39:38 Benign paroxysmal positional vertigo 006269529 H81.12 [id number] Che Woods Physical [facility], [address] [place] [address] 12/22/2017 12:26:25 12/22/2017 19:48:05 Benign paroxysmal positional vertigo 829061621 H81.12 [id number] TIMMY Macias FP, [facility], OFFICE [address] [facility] [place] [address] 12/23/2017 10:12:02 12/23/2017 12:20:02 Benign paroxysmal positional vertigo 823468649 H81.13 Hx. of BPPV, likely exacerbate d by recent URI and plane ride. Neuro exam unremarkab le with no red flag symptoms. Already seeing PT for vestibular exams. Has Meclizine. Start Flonase. Advised on home Gin maneuver. Slow position changes. Reviewed ER/return precaution s. [id number] [facility], [address] [place] [address] 12/23/2017 12:52:51 12/23/2017 13:50:58 Benign paroxysmal positional vertigo 282666911 H81.12 [id number] [facility], [address] [place] [address] 12/24/2017 11:19:03 12/27/2017 21:15:10 Benign paroxysmal positional vertigo 453315625 H81.12 [id number] Richa Johnston , TIMMY , [facility], OFFICE [address] [facility] [place] [address] 12/29/2017 13:16:02 12/29/2017 14:17:05 Adult health examination 793379405 Z00.00 see Risk Assessment and Lifestyle Change Counseling section aboveLabs reviewed Counseling 651848714 Z71 .9 Depression screening 171 764644 Z13.89 depression screening tool administer ed, entered into emr, scored and discussed, time greater than 7.5 minutes Benign ess ential hypertension 0185708 I10 Blood pressure at goal, Continue meds. HR is elevated, chronic per patient. Will continue to monitor and call if ongoing elevation. States that when she exercises it usually will come down overall. Previously on low dose beta adair but does not wish to start again today. Screening for malignant neoplasm of colon 282997603 Z12.11 Reviewed that the gold standard of colorectal cancer screening is a colonoscop y. Patient is not interested in this at this time and would like to do IFOB cards. Discussed that positive test result should then warrant colonoscop y. Also informed patient of importance of annual screening with IFOB cards. Patient verbalizes understand ing to this plan. Acute sinusitis 81021564 J01.90 Pt presents today for evaluation of [...] or worsen at any time. Hypercholesterolemia 136 43361 E78.00 Lipid levels slightly. ASCVD risk of 9.6%. Patient opting to make lifestyle modificati ons and recheck in 6 months over meds. Screening mammography 24 916273 Z12.31 Due to have mammo. Dizziness 882679668 R42 Still suspect BPPV ? if exacerbate d by acute sinusitis. Trial abx, continue PT, follow up later this week. [id number] [facility], [address] [place] [address] 12/29/2017 14:16:43 12/30/2017 07:59:55 Benign paroxysmal positional vertigo 796395383 H81.12 [id number] [facility], [address] [place] [address] 12/31/2017 13:23:45 12/31/2017 14:07:25 Benign paroxysmal positional vertigo 529043270 H81.12 [id number] [facility], [address] [place] [address] 03/10/2018 13:59:23 03/11/2018 12:12:38 Shoulder pain 70992861 M25.743 [id number] [facility], [address] [place] [address] 03/22/2018 15:52:29 03/22/2018 16:36:57 Shoulder pain 42127678 M25.168 [id number] Joanna Thurman, PT Physical Therapy, [address] [place] [address] 07/12/2018 16:22:54 07/13/2018 09:48:57 Benign paroxysmal positional vertigo 672400381 H81.11 [id number] Joanna Thurman, PT Physical Therapy, [address] [place] [address] 07/14/2018 12:05:50 07/14/2018 14:01:38 Benign paroxysmal positional vertigo 621079410 H81.11 [id number] Peace Ruano NP FP, [facility], OFFICE [address] [facility] [place] [address] 07/15/2018 13:01:26 07/15/2018 13:43:13 Benign essential hypertension 4931013 I10 Blood pressure well below goal. Could likely taper off HCTZ, but she finds that this flares up her BPPV. Continue low dose HCTZ, reviewed diet, exercise, hydration, and weight loss. Active or passive immunization 987880168 Z23 Benign par oxysmal positional vertigo 507168439 H81.10 Ongoing. Will see Beatrice Woods for eval and treatment. Continue to use meclizine as directed. Stay hydrated. Suggested acupunctur e for treatment. [id number] [facility], [address] [place] [address] 08/17/2018 11:19:11 08/17/2018 21:10:32 Benign paroxysmal positional vertigo 134588661 H81.12 [id number] [facility], [address] [place] [address] 08/19/2018 08:53:11 08/20/2018 21:43:05 Benign paroxysmal positional vertigo 955300617 H81.12 [id number] Che Woods Physical [facility], [address] [place] [address] 08/26/2018 09:53:12 08/26/2018 16:32:41 Benign paroxysmal positional vertigo 516188508 H81.12 [id number] RICO Quinones, [facility], OFFICE [address] [facility] [address] 11/08/2018 07:28:42 11/08/2018 07:50:11 Onychomycosis 584926420 B35.1 I suspect an ongoing fungal infection. Reviewed soaking with Epsom salts, and keeping skin clean & dry. Use of clotrimazo le and oral terbinafin e reviewed. Discussed risks, benefits, side effects, and limitation s of medication . She opted to not use rx medication at this time, will f/u if sxs persist/wo rsen [id number] Joanna Thurman, PT Physical Therapy, [address] [place], [place] [address] 11/25/2018 10:47:08 11/26/2018 08:18:11 Benign paroxysmal positional vertigo 441637307 H81.12 [id number] Joanna Thurman, PT Physical Therapy, [address] [place], [place] [address] 11/26/2018 09:26:09 11/26/2018 10:25:05 Benign paroxysmal positional vertigo 194886580 H81.12 [id number] Caprice Bonner D.O. , [facility], OFFICE [address] [place] [address] jo, [place] [address] 12/09/2018 10:44:38 12/09/2018 11:19:40 Ingrowing toenail 617791408 L60.0 discussed continue warm soaks until she can see podiatry. Onychomycosis 220695956 B35.1 Pre-surger y evaluation 352176876 Z01.818 low risk for low risk surgery. forms completed and faxed to [facility] . Cataract of left eye 265 8968730 4401035 H26.9 low risk for low risk surgery. forms completed and faxed to [facility] . [id number] Georgina Joshi DPM Podiatry, [address] [place], [place] [address] 12/23/2018 07:44:49 12/23/2018 10:17:20 Ingrowing toenail 214692709 L60.0 right great toe ingrown toenail lateral [...] pain medication prn pain. Pain in toe 103882993 M7 9.761 [id number] Peace Ruano NP FP, [facility], OFFICE [address] [facility] [place] [address] 12/31/2018 09:26:21 12/31/2018 10:18:19 Adult health examination 715265387 Z00.00 see Risk Assessment and Lifestyle Change Counseling section above Counseling 881643889 Z71 .9 Encouraged increased activity and joining a gym, pt agreeable and plans to join a gym, will continue to eat a low fat and vegan diet, also encouraged mediterran marion diet Depression screening 171 013406 Z13.89 depression screening tool administer ed, entered into emr, scored and discussed, time greater than 7.5 minutes Benign ess ential hypertension 0448361 I10 Blood pressure at goal. She feels better with better control and decreased pulse. OK to restart beta adair, continue HCTZ. RTO for recheck in 3 months. [id number] Georgina Joshi DPM Podiatry, [address] [place] [address] 01/05/2019 13:09:59 01/06/2019 13:32:18 Ingrowing toenail 233031744 L60.0 right great toe healing. We await bx results. Pt instructed to soak for another week. Ok to leave toe open to air. RTC prn. I spent 15 mins face to face with patient, more 50% spent in counseling and coordinati on of care. Pain in toe 127366772 M7 9.153 [id number] LENCHO Castillo, [facility], OFFICE [address] [facility] [place] [address] 02/01/2019 14:24:10 02/01/2019 14:45:25 Benign essential hypertension 4657892 I10 Blood pressure at goal. She feels better with better control and decreased pulse. OK to restart beta adair, continue HCTZ. RTO for recheck in 3 months. [id number] RICO Quinones, [facility], OFFICE [address] [facility] [place] [address] 03/01/2019 08:32:48 03/01/2019 09:09:54 Palpitations 88245575 R00.2 EKG revealed occ PAC's. Reviewed benign nature of this condition, monitoring for sxs worsening, and avoiding things like caffeine & etoh. Benign ess ential hypertension 9941734 I10 Blood pressure at goal. She feels better with better control and decreased pulse. OK to restart beta adair, continue HCTZ. [id number] Peace Ruano NP FP, [facility], OFFICE [address] [facility] [place] [address] 04/04/2019 08:47:16 04/05/2019 15:13:04 Benign essential hypertension 3377521 I10 Tolerating meds well. BP at goal of <130/90. Continue meds as directed. Schedule PHA and BP check in December 2019. [id number] Michelle Luevano LPN FP, [facility], OFFICE [address] [facility] [place] [address] 07/07/2019 06:59:44 07/08/2019 06:48:53 Active or passive immunization 815796916 Z23 [id number] Joanna Thurman, PT Physical Therapy, [address], [place] [address] 03/18/2021 14:17:44 03/19/2021 09:00:32 Benign paroxysmal positional vertigo 932150231 H81.12 [id number] Joanna Thurman, PT Physical Therapy, [address], [place] [address] 03/25/2021 08:51:43 03/25/2021 10:50:40 Benign paroxysmal positional vertigo 176312951 H81.12 [id number] Joanna Thurman, PT Physical Therapy, [address], [place] [address] 03/26/2021 10:52:43 03/26/2021 11:48:09 Benign paroxysmal positional vertigo 332657539 H81.12 [id number] Joanna Thurman, PT Physical Therapy, [address], [place] [address] 03/28/2021 09:24:44 03/28/2021 10:20:20 Benign paroxysmal positional vertigo 202893166 H81.12 [id number] Joanna Thurman, PT Physical Therapy, [address] [place], [place] [address] 04/12/2021 08:24:37 04/12/2021 09:25:30 Benign paroxysmal positional vertigo 766615964 H81.12 [id number] Joanna Thurman, PT Physical Therapy, [address], [place] [address] 04/15/2021 14:53:19 04/15/2021 15:45:40 Benign paroxysmal positional vertigo 168270164 H81.12 [id number] Joanna Thurman, PT Physical Therapy, [address], [place] [address] 04/19/2021 08:27:31 04/19/2021 09:32:27 Benign paroxysmal positional vertigo 742992249 H81.12 [id number] Joanna Thurman, PT Physical Therapy, [address], [place] [address] 04/29/2021 09:53:42 04/29/2021 11:05:00 Benign paroxysmal positional vertigo 869308120 H81.12 [id number] Joanna Thurman, PT Physical Therapy, [address] [place] [address] 05/07/2021 07:45:05 05/08/2021 07:52:53 Benign paroxysmal positional vertigo 188188684 H81.12 [id number] Joanna Thurman, PT Physical Therapy, [address] [place] [address] 05/15/2021 10:50:25 05/15/2021 12:12:27 Benign paroxysmal positional vertigo 539135402 H81.12 [id number] Joanna Thurman, PT Physical Therapy, [address] [place] [address] 11/26/2021 08:24:40 11/26/2021 09:31:24 Benign paroxysmal positional vertigo 008825542 H81.13 [id number] Joanna Thurman, PT Physical Therapy, [address] [place] [address] 11/28/2021 11:26:26 11/28/2021 12:31:18 Benign paroxysmal positional vertigo 409856313 H81.13 [id number] Joanna Thurman, PT Physical Therapy, [address], [place] [address] 12/02/2021 10:24:19 12/02/2021 11:05:50 Benign paroxysmal positional vertigo 431534753 H81.13 [id number] Joanna Thurman, PT Physical Therapy, [address] [place], [place] [address] 12/06/2021 09:23:36 12/06/2021 10:00:25 Benign paroxysmal positional vertigo 726495019 H81.13 [id number] Joanna Thurman, PT Physical Therapy, [address] [place], [place] [address] 04/28/2022 11:21:21 04/28/2022 12:29:18 Benign paroxysmal positional vertigo 436109345 H81.13 [id number] Joanna Thurman, PT Physical Therapy, [address], [place] [address] 05/02/2022 09:55:35 05/02/2022 10:53:33 Benign paroxysmal positional vertigo 489165584 H81.13 [id number] Joanna Thurman, PT Physical Therapy, [address], [place] [address] 05/06/2022 11:42:39 05/07/2022 08:41:59 Benign paroxysmal positional vertigo 273413677 H81.13 [id number] Jyothi Cloud, PT Physical Therapy, [address] [place] [address] 1 04/03/2023 11:14:07 04/03/2023 15:28:29 Left-sided piriformis syndrome [id number] M54.32 Trochanter ic bursitis of left hip [id number] 57022 M70.62 Inflammati on of sacroiliac joint [id number] M46.1 [id number] DAJA LIN, PT Physical Therapy, [address] [address] 01/26/2024 10:47:07 01/26/2024 14:46:41 Benign paroxysmal positional vertigo [id number] H81.11 [id number] DAJA LIN, PT Physical Therapy, [address] [address] 01/28/2024 15:48:34 01/28/2024 17:01:06 Benign paroxysmal positional vertigo [id number] H81.11 Health Concerns Section Related Observation LastModified by Organization Detai ls LastModified Time None Recorded Concern Status LastModified by Organization Details LastModified Time None Recorded Advance Directives Directive N: Discussed and gave form . sc Payers Encounter Date Sequence Insurance Name Policy Number Policy Arizmendi Covered Member ID Arizmendi Member ID Guarantor Name 05/02/2022 2 [facility] 1 (MEDICARE SUPPLEMENT) [id number] Rajani S Mitchkoski [id number] Rajani Mitchkoski 05/02/2022 1 [place] [employer] Rajani S Mitchkoski [id number] Rajani Mitchkoski 05/06/2022 2 [facility] 1 (MEDICARE SUPPLEMENT) [id number] Rajani S Mitchkoski [id number] Rajani Mitchkoski 05/06/2022 1 [place] [employer] Rajani S Mitchkoski [id number] Rajani Mitchkoski 04/03/2023 2 [facility] 1 (MEDICARE SUPPLEMENT) [id number] Rajani S Mitchkoski [id number] Rajani Mitchkoski 04/03/2023 1 [place] [employer] Rajani S Mitchkoski [id number] Rajani Mitchkoski 01/26/2024 2 [place] [id number] (MEDICARE SUPPLEMENT) [id number] Rajani S Mitchkoski [id number] Rajani Mitchkoski 01/26/2024 1 [place] [employer] Rajani S Mitchkoski [id number] Rajani Mitchkoski 01/28/2024 2 [facility] 1 (MEDICARE SUPPLEMENT) [id number] Rajani S Mitchkoski [id number] Rajani Mitchkoski 01/28/2024 1 [place] [employer] Rajani S Mitchkoski [id number] Rajani Mitchkoski Notes Date Note Type Note Provider Name and Address Organization Details Recorded Time 05/02/2022 text/html Dolly statest th at she is feeling better. She reports that she has not been having dizziness when rolling in bed. Joanna Olman, PT [address] [place], [phone], [facility] 05/02/2022 10:25:34 05/06/2022 text/html Dolly states bety t she has been feeling pretty good. I have only felt it once a tiny bit when I was rolling in bed. Joanna Olman, PT [address] [place], [phone], [facility] 05/07/2022 07:57:17 04/03/2023 text/html PT Initial Eval*Reported [...] 80 90 100 }} Percent limitation in walking{{ 20 30* 40 50 60 70 80 90 1 00}} Percent limitation in stairsLBP/L piriformis syndrome and into calf/moran area. Standing still is the worst, walk and stairs challenging, Wt bearing L LE increased pain. X rays done in past. Hx L GT bursitis. No HEP given yet by chiro/acupressure clinicians. Jyothi Cloud, PT [address] [place], [phone], [facility] 04/03/2023 15:06:53 01/26/2024 text/html Pt is a 73 f referred by PCP (Soto STINSON at [facility]) for vertigo. This episode onset a couple [...] or when sleeping. SHANTAL LIN, PT [address] [place], [phone], [facility] 01/26/2024 14:36:17 01/28/2024 text/html Story great the first day, and generally speaking, [...] f referred by PCP (Soto STINSON at [facility]) for vertigo. This episode onset a couple [...] or when sleeping. SHANTAL LIN, PT [address] [facility], [place], [address], [facility] 01/28/2024 16:25:36 OBGyn Episode No OBEpisode recorded.
--- OUTSIDE RECORDS SUMMARY | 2024-10-07 14:35 | XMS_ITS | Clinical Summary ---
Author Organization [employer] Address [address] [facility] [address] [place] [address] Care Team Providers Care Coloring Room Man Name Role Phone Provider, Not In System [...] Mixed hyperlipidemia 11/12/2021 Hypertension 01/09/2020 Hypothyroidism 01/09/2020 Encounters Date Type Department Care Team Description 10/07/2024 Patient Outreach [address] [phone] Hiwot Smith LPN from Last 3 Months Immunizations Name Administration Dates Next Due Influenza [...] Use Screening 1962 Hepatitis C Screening 1968 Pneumococcal Vaccine: 50+ Years (1 of 2 - PCV) 1969 Mammogram 1990 RSV Patients and Patients Aged 60 years or older (1 - Risk 60-74 years 1-dose series) 2010 Zoster Vaccines (1 of 2) 08/29/2014 07/04/2014 Colorectal Cancer Screening 11/21/2022 FIT 11/21/2022 11/21/2021 FOBT 11/21/2022 11/21/2021, 10/29, 01/30/2020 Depression Screening 09/08/2023 09/08/2022, 09/08/19 23 SDOH Screening 09/08/2023 09/08/2022 Tobacco Screening 02/27/2024 02/26/2023 COVID-19 Vaccine ( season) 2024 09/08/2022, 08/26/2021, 12/07/2020, Additional history exists Influenza Vaccine (#1) 2024 2, 07/07/2022, 08/26/2021, Additional history exists DTaP/Tdap/Td Vaccines (2 - Td or Tdap) 01/25/2025 01/25/2015, 08/31/2003 Lipid Panel 02/27/2028 02/26/2023, 10/02, 12/20/2020, Additional [...] Lipid Panel, Standard (02/26/2023 3:32 PM EDT) [facility] Cholesterol, Total 124 (<200) MG/DL [facility] Triglyceride (mg/dL) in Serum/Plasma 116 (<150) MG/DL [facility] HDL Cholesterol 49 (>39) MG/DL [facility] LDL Cholesterol, Calculated 52 (0-130) MG/DL [facility] Non HDL Chol. (LDL+VLDL) 75 (<160) MG/DL [facility] Comment: Testing performed or reported by [facility], a Service of [facility], [address] [place] [id number] Leo Peres MD, Ink Blender [facility]# [id number] Blood Venous blood specimen / Unknown 02/26/2023 3:32 PM EDT 02/26/2023 3:35 PM EDT [facility] ANTHONYP LAB BLOOD ORDERABLES Final Resul t [address] [address] * FECAL OCCULT BLOOD, IMMUNOCHEMICAL (11/21/2021 8:36 AM EDT) Fecal Occult Blood, Immunochemical (FIT) NEGATIVE [facility] 11/21/2021 8:36 AM EDT Historical Provider LAB BODY FLUIDS AND STOOL S ORDERABLES Final Result [facility] [address] * Fecal immunochemical (11/21/2021) Fecal Immunoassay Test (External) negative Stool Rectal contents / Unknown us Historical Provider LAB BODY FLUIDS AND STOOL S ORDERABLES Final Result from Last 3 Months or Most Recently Relevant to Health Maintenance Insurance MEDICARE [facility] , [address] [place] [address] * Guarantor: Rajani Hart Account Type Relation to Patient Date of Phone Billing Address Dental Self Care Teams Coloring Room Man Relationship Specialty Start Date End Date Provider, Not In System PCP - General Family Medicine 06/19/23
--- OUTSIDE RECORDS SUMMARY | 2024-10-07 14:35 | XMS_ITS | Encounter Summary ---
Author Organization [employer] Address [address] [place] [address] Care Team Providers Care Bartender Name Role Phone Provider, Not In System Primary Care Provider Un available Encounter Details Date Type Department Care Team (Late st Contact Info) Description 01/01/2024 Telephone [facility] [address] [place] [address] Provider, Not In System Social [...] on filedocumented in this encounter Care Teams Bartender Relationship Specialty Start Date End Date Provider, Not In System PCP - General Family Medicine 06/19/23 documented as of this encounter
== END 2024-10-07 15:35 | disposition home or self-care (01) ==
LOC: HO.HMCH 14:17
PROVIDERS: PCP Internal Medicine; Visit Provider Physician Assistant Medical
DX: J84.9 Interstitial pulmonary disease, unspecified (principal); M34.1 CR(E)ST syndrome; I77.9 Disorder of arteries and arterioles, unspecified; M35.9 Systemic involvement of connective tissue, unspecified; Z95.0 Presence of cardiac pacemaker; I05.0 Rheumatic mitral stenosis; G47.33 Obstructive sleep apnea (adult) (pediatric); Z98.890 Other specified postprocedural states; K11.7 Disturbances of salivary secretion; I73.00 Raynaud's syndrome without gangrene; G25.81 Restless legs syndrome; M47.816 Spondylosis without myelopathy or radiculopathy, lumbar region

== ENCOUNTER 2024-10-10 13:47 | Outpatient (AMB) | payer MEDICARE, OTHER, SELFPAY ==
--- NOTE | 2024-10-10 13:53 | MHC.OFFVIS ---
Vital Signs 10/10/24 13:54 Height 5 ft 3 in Weight 174 lb 9.698 oz BMI 30.9 BP 108/52 L Blood Pressure Location Lt brachial Position Sitting Pulse 96 Pulse Source Pulse Oximeter Intake Visit Reasons: [facility] F/up Leasing Representative Required: No Accompanied by: Self / Same As Patient Allergies codeine Allergy (Severe, Verified 10/07/24 14:18) felt like going to propranolol Allergy (Intermediate, Verified 10/07/24 14:18) dizziness Seasonal Allergies Allergy (Intermediate, Verified 10/07/24 14:18) Sneezing, vertigo Medication List - Last Reconciled 10/10/24 by Cristofer Bermudez MD acetaminophen (Tylenol) 650 mg PO QID PRN atorvastatin 40 mg PO DAILY calcium carbonate-vitamin D3 600 mg-20 mcg (800 unit) 1 tab PO DAILY cetirizine 10 mg PO DAILY furosemide 60 mg (1.5 x 40 mg) PO QAM 30 days gabapentin 100 mg PO BEDTIME levothyroxine 88 mcg PO DAILY meclizine (Dramamine (meclizine)) 25 mg PO BID PRN melatonin 5 mg PO .qhs metoprolol succinate ER (Toprol XL) 50 mg PO BID naproxen sodium (Flanax (naproxen)) 220 mg PO BID PRN omeprazole 40 mg PO DAILY prednisone 10 mg PO DAILY prochlorperazine maleate (Compazine) 10 mg PO BID PRN tizanidine 4 mg PO BID PRN tramadol 50 mg PO BID PRN 30 days HPI Comments Details: 74-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 She has been experiencing shortness of breath for long time. She was a smoker from age [age] and smoke heavily. She had pulmonary function test done recently which reveals some concern for emphysema. She has been on inhalers without any change in her breathing. She is saying she is able to walk a block and go up a flight of stairs but after that she gets shortness of breath which limits her activity. She has no chest discomfort. She underwent echocardiography to rule out pulmonary hypertension and there was no evidence of pulmonary hypertension on that. There was small pericardial effusion noticed. She has Raynaud's and hypertension and has been taking hydrochlorothiazide and amlodipine with good control blood pressure as well as Raynaud. She has been following with GI and Rheumatology. 06/01/23: She returns for follow-up. Her blood pressure is elevated in the office 150/80. Also on April 10 she had blood pressure checked which was 160/90. She has been taking hydrochlorothiazide every other day. She had echocardiography performed she showing small pericardial effusion but no tamponade physiology. She has small pericardial effusion before in July 2022. She is denying any significant chest discomfort. She is saying her breathing has been better since she has been on prednisone. She is taking 5 mg daily. 02/22/24: She is here for follow-up. Recent admission to [facility] with shortness of breath and hypoxia where CT scan was concerning for bilateral ground-glass infiltrates concerning for interstitial lung disease versus CHF. She also has recent COVID-19 infection. In November she was at [facility] with COVID-19 and bradycardia and had permanent pacemaker placed. While she was at [facility] she was advised to undergo left and right heart catheterization but she decided against it. She has seen pulmonology and her Lasix was increased from 20-60 mg but she has been mostly taking 40 mg at this point. She is saying her breathing is okay but she does get shortness of breath with exertion. She also has a continuous pulse ox machine and she has noted that her saturations are at times low in 70s but she also has Raynaud's. During her admission at [facility] echocardiography raise concern for mitral stenosis with moderate to severe MS. Overall she is stable. Denying any chest discomfort any other complaints. 03/21/24: She has had for follow-up. She continues to get shortness of breath with activities. She is saying that during ambulation such fall to 70s and then when she takes deep breaths the saturation improved 90s this is quite unusual for heart failure or valvular disease. She previously had [id number] heart catheterization when her filling pressures were normal. This was years ago though. She is denying any chest discomfort. She also is getting some episodes of coughing and wheezing in the morning. She sleeps quite flat in bed and has crest syndrome and probably gets bad acid reflux. Her heart rate is 88 with metoprolol 25 mg twice a day. 10/10/24: Here for f/u after recent admission at [facility] for CHF. She was not taking care of his diet and was taking too much salt. She was diuresed and sent home. She is feeling ok. She was given script for cardizem but she didnt start it yet. Her BP is borderline and I have advised her to hold off on starting it. She had PABLO at [facility] few months back which confirmed mitral valve to be moderate and she has moderate MS. [facility] Medical History (Updated 10/10/24 @ 19:03 by Cristofer Bermudez MD) Adverse reaction to drug Restless leg syndrome Pacemaker Lower thoracic back pain Bifascicular block Supplemental oxygen dependent CREST (calcinosis, Raynaud's phenomenon, esophageal dysfunction, sclerodactyly, telangiectasia) Dyspnea on exertion Pericardial effusion Hypothyroid Enlarged thyroid Hypertension Multinodular thyroid Telangiectasia Dysphagia Surgical History S/P placement of cardiac pacemaker S/P cardiac cath S/P tooth extraction Hx of colonoscopy H/O breast biopsy Family History Father Heart disease Sister Ovarian cancer Brother Heart attack Stroke Mother Thyroid disease Brother Asthma Social History Household Members: Spouse Housing: House Do you presently have visiting nurse or other home services: Yes ([facility]NA ,PT) Alcohol intake: never Patient Tobacco Use Status: Former Tobacco user Tobacco use type: Cigarette Years Smoked: 20 +/- e-Cigarette/Vaping Use: Never Used Second Hand Smoke Exposure: Yes Advance Directives Date on File: 02/13/24 service: No Current occupational status: retired 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 Cognitive needs: No Hearing needs: No Vision needs: No Review of Systems Const Denies chills, Denies fatigue, Denies fever(s), Denies weight gain and Denies weight loss ENT Denies dizziness Card Denies chest pain, Denies leg edema, Denies lightheadedness, Denies palpitations, Reports dyspnea on exertion, Denies orthopnea and Denies other Resp Denies cough and Reports dyspnea on exertion GI Denies hematochezia and Denies change in stool character Musc Denies abnormal gait, Denies muscle weakness, Denies numbness, Denies radiating pain into limb and Denies tingling Neuro Denies abnormal gait, Denies dizziness, Denies numbness and Denies tingling Endo Denies fatigue and Denies palpitations Physical Exam Vital Signs: Last Vital Signs Pulse 96 10/10/24 13:54 BP 108/52 L 10/10/24 13:54 BMI result Body Mass Index 30.9 GENERAL APPEARANCE: in no acute distress, pleasant. NECK: no carotid bruit, no jugular venous distention. SKIN: no suspicious lesions, warm and dry. HEART: apical mid diastolic murmur, regular rate and rhythm. LUNGS: clear to auscultation bilaterally. ABDOMEN: soft, nontender. EXTREMITIES: no edema. PERIPHERAL PULSES: equal. NEUROLOGIC: No gross deficits, AAO X 3 Assessment & Plan Assessment & Plan (1) Chronic diastolic heart failure: Code(s): I50.32 - Chronic diastolic (congestive) heart failure Category: Medical (2) Moderate mitral stenosis: Code(s): I05.0 - Rheumatic mitral stenosis Category: Medical (3) Mitral stenosis: Code(s): I05.0 - Rheumatic mitral stenosis Category: Medical (4) S/P placement of cardiac pacemaker: Comment: ([employer]tronic DCPP for complete heart block 12/2023) Code(s): Z95.0 - Presence of cardiac pacemaker Category: Surgical (5) CREST (calcinosis, Raynaud's phenomenon, esophageal dysfunction, sclerodactyly, telangiectasia): Code(s): M34.1 - CR(E)ST syndrome Category: Medical Plan 74-year-old female with complex medical issues presenting for follow-up. She has CREST syndrome, mild PH and moderate MS. She was at [facility] for CHF recently. She was diuresed. She has been watching her diet and is currently on same dose of Lasix. Adding Jardiance. If stays stable then will add Spironolactone. c/w BB Diltiazem was prescribed at [facility] but she has not started-BP is borderline and I have advised her to hold it for now. Moderate MS by PABLO. We will continue to monitor it for now. Thank you for allowing me to participate in the care of your patient. Please feel free to contact me if you have any questions. Medications: New empagliflozin (Jardiance) 10 mg PO DAILY 30 tabs 6RF I50.32 - Chronic diastolic (congestive) heart failure Coding Level of Care Code Est Pt Level 4 (85896) Diagnoses Chronic diastolic heart failure I50.32 Moderate mitral stenosis I05.0 Mitral stenosis I05.0 S/P placement of cardiac pacemaker Z95.0 CREST (calcinosis, Raynaud's phenomenon, esophageal dysfunction, sclerodactyly, telangiectasia) M34.1
[2024-10-10 13:54] VITALS: BP 108/52; PULSE 96; BMI 30.9
== END 2024-10-10 14:30 | disposition home or self-care (01) ==
PROVIDERS: PCP Internal Medicine; Visit Provider Internal Medicine Cardiovascular Disease
DX: I50.32 Chronic diastolic (congestive) heart failure (principal); I05.0 Rheumatic mitral stenosis; Z95.0 Presence of cardiac pacemaker; M34.1 CR(E)ST syndrome
CPT/HCPCS: 99214

== ENCOUNTER → 2024-10-10 13:47 | Outpatient (BNVA) | payer MEDICARE, OTHER, SELFPAY | PROVIDERS: PCP Internal Medicine; Visit Provider Internal Medicine Cardiovascular Disease | DX: M34.1 CR(E)ST syndrome (principal); I50.32 Chronic diastolic (congestive) heart failure; I05.0 Rheumatic mitral stenosis; Z95.0 Presence of cardiac pacemaker | CPT/HCPCS: 99212 ==

== ENCOUNTER 2024-10-13 15:40 | Outpatient (AMB) | payer MEDICARE, OTHER, SELFPAY ==
[2024-10-13 15:41] VITALS: BP 104/58; PULSE 103; O2SAT 97; BMI 31.2
--- NOTE | 2024-10-13 15:41 | MHC.OFFVIS ---
Vital Signs 10/13/24 15:41 Height 5 ft 3 in Weight 176 lb BMI 31.2 BP 104/58 L Blood Pressure Location Rt brachial Position Sitting Pulse 103 H Pulse Source Doppler Pulse Oximetry (%) 97 Oxygen Delivery Method Room Air Intake Visit Reasons: follow up after medication change Allergies codeine Allergy (Severe, Verified 10/13/24 15:44) felt like going to propranolol Allergy (Intermediate, Verified 10/13/24 15:44) dizziness Seasonal Allergies Allergy (Intermediate, Verified 10/13/24 15:44) Sneezing, vertigo HPI HPI follow up after medication change: Details: 73-year-old lady, former 40 pack smoker, quit 30 years prior, with underlying CREST under Rheumatology care, now followed for pulmonary component of dyspnea on exertion and 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 Patient respiratory symptoms are now controlled on prednisone 10 mg daily and Imuran 100 mg daily. Patient also seen [facility] pulmonary hypertension specialist and was put in sildenafil, though with no changes in her symptoms and no significant pulmonary hypertension noted on right heart catheterization or 2D echocardiogram. She continues on Lasix 60 mg daily. After the last office visit patient had to stop her Imuran secondary to intolerance of GI side effects. She continues on prednisone 10 mg and Lasix 60 mg daily with good control of her symptoms. [facility] Medical History (Updated 10/10/24 @ 19:03 by Cristofer Bermudez MD) Adverse reaction to drug Restless leg syndrome Pacemaker Lower thoracic back pain Bifascicular block Supplemental oxygen dependent CREST (calcinosis, Raynaud's phenomenon, esophageal dysfunction, sclerodactyly, telangiectasia) Dyspnea on exertion Pericardial effusion Hypothyroid Enlarged thyroid Hypertension Multinodular thyroid Telangiectasia Dysphagia Surgical History S/P placement of cardiac pacemaker S/P cardiac cath S/P tooth extraction Hx of colonoscopy H/O breast biopsy Family History Father Heart disease Sister Ovarian cancer Brother Heart attack Stroke Mother Thyroid disease Brother Asthma Social History Household Members: Spouse Housing: House Do you presently have visiting nurse or other home services: Yes ([facility]NA ,PT) Alcohol intake: never Patient Tobacco Use Status: Former Tobacco user Tobacco use type: Cigarette Years Smoked: 20 +/- e-Cigarette/Vaping Use: Never Used Second Hand Smoke Exposure: Yes Advance Directives Date on File: 02/13/24 service: No Current occupational status: retired 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 Cognitive needs: No Hearing needs: No Vision needs: No Review of Systems Const Denies daytime sleepiness, Denies excessive sweating, Denies fatigue, Denies fever(s), Denies lethargy, Denies malaise, Denies night sweats, Denies snoring and Denies weight loss Eyes Denies blurry vision and Denies itchy eyes ENT Denies nasal congestion, Denies post nasal drip, Denies sinus pain, Denies sinus pressure and Denies other ( Thrush) Card Denies chest pain, Reports pedal edema, Denies dyspnea, Reports dyspnea on exertion, Denies orthopnea and Denies paroxysmal nocturnal dyspnea Resp Denies cough, Denies hemoptysis, Denies excessive phlegm production, Denies dyspnea, Reports dyspnea on exertion, Denies snoring and Denies wheezing GI Denies abdominal pain and Denies heartburn Musc Denies myalgias, Denies arthralgias and Denies joint swelling Skin/Breast Denies rash Neuro Denies memory loss and Denies seizure-like activity Psych Denies abnormal sleep pattern, Denies anxiety and Denies memory loss Endo Denies excessive sweating, Denies fatigue and Denies heat intolerance Kenneth/Lymph Denies easy bruising Aller/Immun Denies itchy eyes, Denies seasonal rhinorrhea and Denies wheezing Physical Exam Vital Signs: Last Vital Signs Pulse 103 H 10/13/24 15:41 BP 104/58 L 10/13/24 15:41 Pulse Ox 97 10/13/24 15:41 Oxygen Delivery Method Room Air 10/13/24 15:41 BMI result Body Mass Index 31.2 Const General: no acute distress and alert Nutritional Appearance: not obese Orientation/consciousness: Other orientation findings ( oriented) HEENT Head: Yes atraumatic Eyes General: appearance normal, both eyes and all related structures Sclerae: sclerae normal EOM: EOMs intact bilaterally Neck Neck: Yes supple Lymphatic: no lymphadenopathy noted Resp Effort & Inspection: normal respiratory effort and no use of accessory muscles Auscultation: clear to auscultation bilaterally Cardio Rate: regular rate Rhythm: regular rhythm Heart sounds: no gallops, no murmurs and no rubs Skin General skin exam: other ( warm) Extrem General: No clubbing, No cyanosis and Yes edema (1+ bilateral) Assessment & Plan Assessment & Plan (1) ILD (interstitial lung disease): Code(s): J84.9 - Interstitial pulmonary disease, unspecified Category: Medical Plan: CREST related, intolerant of Imuran. Continue prednisone 10 mg daily. (2) Pulmonary edema: Code(s): J81.1 - Chronic pulmonary edema Category: Medical Plan: Improving current diuretic regimen of 60 mg daily. Continue current regimen. Coding Level of Care Code Est Pt Level 4 (81231) Diagnoses ILD (interstitial lung disease) J84.9 Pulmonary edema J81.1
--- OUTSIDE RECORDS SUMMARY | 2024-10-13 16:18 | XMS_ITS | Continuity of Care Document ---
Author Organization [employer] Address [address] [place] [address] [address] [place], [place] Phone [phone] Care Team Providers Care Hand Ii Blocker Name Role Phone Dayan Barragan MD Care Team Information Rec eiver Unavailable Social History Type Date Description Comments Sex Unknown
--- OUTSIDE RECORDS SUMMARY | 2024-10-13 16:18 | XMS_ITS | Clinical Summary ---
Author Organization [employer] Address [address] [facility] [address] [place] [address] Care Team Providers Care Baking Powder Mixer Name Role Phone Provider, Not In System [...] Department Care Team Description 10/07/2024 Patient Outreach [address] [phone] Hiwot Smith LPN from Last [...] Lipid Panel, Standard (02/26/2023 3:32 PM EDT) [facility] Cholesterol, Total 124 (<200) MG/DL [facility] Triglyceride (mg/dL) in Serum/Plasma 116 (<150) MG/DL [facility] HDL Cholesterol 49 (>39) MG/DL [facility] LDL Cholesterol, Calculated 52 (0-130) MG/DL [facility] Non HDL Chol. (LDL+VLDL) 75 (<160) MG/DL [facility] Comment: Testing performed or reported by [facility], a Service of [facility], [address] [place] [id number] Leo Peres MD, Api Developer [facility]# [id number] Blood Venous blood specimen / Unknown 02/26/2023 3:32 PM EDT 02/26/2023 3:35 PM EDT Peace ANTHONYP LAB BLOOD ORDERABLES Final Resul t [address] [id number] * FECAL OCCULT BLOOD, IMMUNOCHEMICAL (11/21/2021 8:36 AM EDT) Fecal Occult Blood, Immunochemical (FIT) NEGATIVE [facility] 11/21/2021 8:36 AM EDT Historical Provider LAB BODY FLUIDS AND STOOL S ORDERABLES Final Result [facility] [address] * Fecal immunochemical (11/21/2021) Fecal Immunoassay Test (External) negative Stool Rectal contents / Unknown us Historical Provider LAB BODY FLUIDS AND STOOL S ORDERABLES Final Result from Last 3 Months or Most Recently Relevant to Health Maintenance Insurance MEDICARE [facility] , [address] [place] [address] * Guarantor: Rajani Hart Account Type Relation to Patient Date of Phone Billing Address Dental Self Care Teams Baking Powder Mixer Relationship Specialty Start Date End Date Provider, Not In System PCP - General Family Medicine 06/19/23
--- OUTSIDE RECORDS SUMMARY | 2024-10-13 16:18 | XMS_ITS | Encounter Summary ---
Author Organization [employer] Address [address] [facility] [address] [place] [address] Care Team Providers Care System Validation Engineer Name Role Phone Peace Ruano Primary Care Provider Unavailab le Peace Ruano Unavailable Unavailable Provider, Not In System Primary Care Provider Un available Encounter Details Date Type Department Care Team (Late st Contact Info) Description 07/22/[address] [phone] Peace Ruano FNP Social History Tobacco Use [...] on filedocumented in this encounter Care Teams System Validation Engineer Relationship Specialty Start Date End Date Peace Ruano FNP PCP - General Family Medicine 06/27/22 06/18/23 Provider, Not In System PCP - General Family Medicine 06/19/23 Peace Ruano FNP Family Medicine 06/27/22 06/18/23 documented as of this encounter
--- OUTSIDE RECORDS SUMMARY | 2024-10-13 16:18 | XMS_ITS | Encounter Summary ---
Author Organization [employer] Address [address] [facility] [address] [place] [address] Care Team Providers Care Pharmaceutical Representative Name Role Phone Provider, Not In System Primary Care Provider Un available Encounter Details Date Type Department Care Team (Late st Contact Info) Description 10/07/2024 Patient Outreach [facility] [address] [place] [phone] Hiwot Smith LPN Social History Tobacco Use [...] on filedocumented in this encounter Care Teams Pharmaceutical Representative Relationship Specialty Start Date End Date Provider, Not In System PCP - General Family Medicine 06/19/23 documented as of this encounter
--- OUTSIDE RECORDS SUMMARY | 2024-10-13 16:19 | XMS_ITS | Data Portability ---
Author Organization [facility], [facility] Address [address] [place] [address] Care Team Providers Care Brim Welt Sewing Machine Operator Name Role Phone JYOTHI CLOUD Phys. [facility] Re[facility] LESLI LEIGH Advertisement Distributor Assessment Encounter Date Assessment Date Assessment LastModified [...] symptoms. R sided BPPV has resolved and Provencal-Hallpike is negative. She has slight symptoms when testing the L. These are less intense and at this time, pt feels that they are not limiting her function. Left side was treated today with PLATFORM POWER TECHNICIAN. Pt prefers to D/C despite positive findings on the L and will return if these symptoms should pose any restrictions in her function. D/C PT [email or web address] Not available 05/07/2022 07:57:01 04/03/2023 04/03/2023 IE 04/03/2309/09 Plan: 1 x/week up to 10 visits over 12 weeks Plan to use CPT codes: 57105 Therapeutic Exercise 54312 Neuromuscular ReEducation 03351 Manual 80031 Therapeutic Activity A: Dolly is a 72 [...] Treatments may include (as appropriate/as indicated): Therapeutic exercise(53350)/Ne uromuscular Reeducation (20013)/Manual Therapy (79304)/Therapeuti c Activities (23118)/Self-care management(52718)/ Attended Electrical Stimulation (88460)/PRN modalities/dry needling/Gait Training (00780)/canalith repositioning(9599 2) [email or web address] Not available 01/26/2024 14:35:58 01/28/2024 01/28/2024 Plan: [...] Treatments may include (as appropriate/as indicated): Therapeutic exercise(52381)/Ne uromuscular Reeducation (88505)/Manual Therapy (50991)/Therapeuti c Activities (21484)/Self-care management(26285)/ Attended Electrical Stimulation (00531)/PRN modalities/dry needling/Gait Training (89755)/canalith repositioning(9599 2) Not available 01/28/2024 16:25:25 Plan [...] g Physic hernando: Mary Ann Oliver ms [facility] (Imaging) [address], [place], [address], 08/01/2022 10:24:55 Result Notes None recorded. Problems Name Problem SNOMED Code Status Onset Date Resolution Date Notes Provider Name and Address Organization Details Recorded Time Measuremen t finding outside reference range 408094648 Completed 07/20/2013 Not Available [facility] 3 02:03:25 Benign essential hypertensi on 9976466 Active Sonia tabares, [facility] 6 08:43:18 Multiple joint pain 19570006 Completed 07/20/2013 Not Available [facility] 3 02:02:27 Primary fibromyalg ia syndrome 69432630 Active Not Available [facility] 3 03:15:35 Posterior rhinorrhea 58319460 Completed 12/25/2016 Peace Ruano NP [address] [place] [address], [address] , [facility] 7 13:02:33 Dizziness 358431017 Completed 07/20/2013 Not Available [facility] 3 02:02:09 Raynaud's disease 184980125 Completed 12/25/2016 Peace Ruano NP [address] [place] [address], [address] , [facility] 7 13:02:22 Limited systemic sclerosis 557885809 Active Lesli Leigh MD [address] [place] [address], [address] , [facility] 6 08:40:52 Paronychia 54289627 Completed 12/25/2016 Peaec Ruano NP [address] [place] [address], [address] , [facility] 7 13:02:26 Finger ulcer 550435660 Completed 12/25/2016 Peace Ruano NP [address] [place] [address], [address] , [facility] 7 13:02:28 Raynaud's phenomenon 922558922 Active Lesli Leigh MD [address] [place] [address], [address] , [facility] 6 08:40:52 Benign paroxysmal positional vertigo 098849473 Active 2017 Peace Ruano NP [address] [place] [address], [address] , [facility] 8 13:35:50 Problem Notes None recorded. Procedures Surgical History Date Name Laterality Status Provider Name and Address Organization Details Recorded Time 01/28/20 24 Neuromuscular re-education completed SHANTAL LIN, PT [address] [place], [address], [facility] 01/28/2024 16:24:21 01/28/20 24 Treatment and Advice completed SHANTAL LIN, PT [address] [place] [address], [address], [facility] 01/28/2024 16:11:11 01/26/20 24 Physical Activity Counselling completed SHANTAL LIN, PT [address] [place], [address], [facility] 01/26/2024 11:19:50 01/26/20 24 08749: PT Eval Low Complexity completed SHANTAL LIN, PT [address] [place] [address], [address], [facility] 01/26/2024 11:19:54 01/26/20 24 Treatment and Advice completed SHANTAL LIN, PT [address] [place], [address], [facility] 01/26/2024 11:41:10 04/03/20 23 Smoking Cessation Counselling completed Jyothi Cloud, PT [address] [place], [address], [facility] 04/03/2023 11:46:14 04/03/20 23 Physical Activity Counselling completed Jyothi Cloud, PT [address] [place], [address], [facility] 04/02/2023 16:34:25 04/03/20 23 92095: PT Eval Low Complexity completed Jyothi Cloud, PT [address] [place], [address], [facility] 04/02/2023 16:34:25 04/03/20 23 Treatment and Advice completed Jyothi Cloud, PT [address] [place], [address], [facility] 04/03/2023 15:01:47 04/28/20 22 Physical Activity Counselling completed Joanna Thurman, PT [address] [place], [address], [facility] 04/28/2022 11:56:57 11/27/19 22 Physical Activity Counselling completed Joanna Thurman, PT [address] [place], [address], [facility] 11/26/2021 09:01:22 01/01/20 19 Medicare Wellness Visit completed Lenora Johnson [facility] 12/31/2018 09:30:08 12/24/19 19 Toenail Avulsion completed Georgina Joshi, DPOpal [address] [place], [address], [facility] 12/24/2018 07:47:50 11/26/19 19 Physical Activity Counselling completed Joanna Thurman, PT [address] [place], [address], [facility] 11/26/2018 08:09:43 07/12/20 18 Physical Activity Counselling completed Joanna Thurman, PT [address] [place] [address], [address], [facility] 07/12/2018 16:58:41 03/10/20 18 Physical Activity Counselling [place], [address], [facility] 03/11/2018 07:19:23 03/10/20 18 03469: PT Eval, Moderate Complexity [place], [address], [facility] 03/11/2018 07:19:32 12/30/19 18 Medicare Wellness Visit completed Annie Renteria [facility] 12/29/2017 13:21:17 11/12/19 18 Physical Activity Counselling completed Che Woods [address] [place] [address], [address], [facility] 11/11/2017 13:04:00 11/12/19 18 40218: PT Eval [place], [address], [facility] 11/11/2017 13:04:00 07/21/20 17 Physical Activity Counselling [place], [address], [facility] 07/21/2017 19:51:12 07/21/20 17 93060: PT Eval Low Complexity [place], [address], [facility] 07/21/2017 19:51:12 12/27/19 17 05131: Therapeutic Exercise completed Jyothi Cloud, PT [address] [place], [address], [facility] 12/26/2016 13:14:34 12/27/19 17 46864: Ultrasound (1:1) completed Jyothi Cloud, PT [address] [place], [address], [facility] 12/26/2016 13:14:34 12/24/19 17 75011: Therapeutic Exercise completed Jyothi Cloud, PT [address] [place], [address], [facility] 12/23/2016 13:48:37 12/24/19 17 93863: Ultrasound (1:1) completed Jyothi Cloud, PT [address] [place], [address], [facility] 12/23/2016 13:48:21 12/17/19 17 12291: Therapeutic Exercise completed Jyothi Cloud, PT [address] [place], [address], [facility] 12/16/2016 22:06:28 11/27/19 17 Physical Activity Counselling completed Jyothi Cloud, PT [address] [place], [address], [facility] 11/26/2016 10:36:36 11/27/19 17 90629: PT Eval, Moderate Complexity completed Jyothi Cloud, PT [address] [place], [address], [facility] 11/26/2016 21:17:20 07/14/20 16 Physical Activity Counselling completed Che Woods [address] [place], [address], [facility] 07/14/2016 21:45:18 06/17/20 16 Medicare Wellness Visit completed Nuha Sanchez RN [facility] 06/17/2016 08:19:35 03/31/20 16 00298: PT Evaluation completed Enrique Zaman, PT [address] [place], [address], [facility] 03/31/2016 14:00:35 03/28/20 16 POC Strep Testing completed Imelda Godinez MA [facility] 03/31/2016 11:15:45 04/25/20 15 66171: Therapeutic Exercise completed Jyothi Cloud, PT [address] [place], [address], [facility] 04/25/2015 12:45:33 04/25/20 15 57447: Manual Therapy completed Jyothi Cloud, PT [address] [place], [address], [facility] 04/25/2015 12:45:33 04/18/20 15 56346: PT Evaluation completed Jyothi Cloud, PT [address] [place], [address], [facility] 04/18/2015 12:46:49 08/22/20 14 Incise and Drain with packing completed Peace Ruano, HEAT AND VENT AIRCRAFT MECHANIC [address] [place], [address], [facility] 08/22/2014 14:22:12 Imaging Results Imaging Date Name Status LastModified by Organiz ation Details LastModified Time 07/30/2022 MAMMO, screening, tomosynthesis, bilateral completed [facility] ([facility]) [address], [place], [address], 08/01/2022 10:24:55 Procedure Notes None recorded. Medical Equipment None Reported. Allergies Allergen ID Allergen Name Allergen Category Reaction Reaction Severity Criticality Documentation Date Start Date Code Code System Note Provider Name and Address Organization Details Recorded Time 623376 propranol ol medicatio n Not available Not available Not available 04/15/2013 8787 RxNorm dizzy at lowes t dose Glenis Slade PA-C [address] [facility], [place], [address], [facility] 3 07:44:52 80914 codeine medicatio n Not available Not available Not available 02/06/2012 2670 RxNorm felt like she was going to Latasha Domínguez null, [facility] 3 11:34:42 Medications Name Sig Start Date [...] bromide 42 mcg (0.06 %) nasal spray [place] 2 sprays 3 times a day by [...] Status Former Smoker Maegan Chavez LPN null, [facility] 02/06/2012 14:55:41 Do You Have An Advance [...] What Type Of Diet Are You Following? GINA hancock Information not available 06/17/2016 Which Illicit Or Recreational Drugs Have You Used? None Information not available 01/25/2015 Do You Or Have You Ever Used E-cigarettes Or Vape? 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 0 Information not available 12/01/2012 Are There Any Guns Present In Your Home? No Information not available 01/02/2014 Live Alone Or With Others? With Others Information not available 01/02/2014 Patient Has Health [...] LastModified by Organization Details LastModified Time Father Rocco [email or web address] Not available 13:47:59 Medical History Condition Response Hyperlipidemia Y Rheumatoid Arthritis NEUROLOGIC Hypothyroid Y Hypertension Y RHEUMATOLOGIC Y Gynecological HistoryNo gynecological history recorded. Obstetrics History GPAL:G 0 P 0 0 0 0 Immunizations Vaccine Type Date Status Note Provider Nam e and Address Organization Details Recorded Time Influenza, split virus, quadrivalent, PF 4 completed Not Available [facility] 09/17/2019 02:18:56 Influenza, split virus, trivalent, PF 4 completed Not Available [facility] 09/17/2019 02:31:43 zoster live 4 completed Not Available [facility] 09/17/2019 02:16:36 Tdap 5 completed Not Available [facility] 09/17/2019 02:19:26 Influenza, split virus, quadrivalent, PF 5 completed Not Available [facility] 09/17/2019 02:25:39 Td(adult) unspecified formulation 4 completed Lore tabares [facility] 11/05/2012 11:05:45 Influenza, high-dose, trivalent, PF 6 completed Not Available [facility] 09/17/2019 02:21:05 Influenza, high-dose, trivalent, PF 8 completed Not Available [facility] 09/17/2019 02:35:35 Influenza, high-dose, trivalent, PF 9 completed Not Available [facility] 09/17/2019 02:25:35 Past Encounters Encounter ID Performer Location Encounter Start Date Encounter Closed Date Diagnosis/Indication Diagnosis SNOMED-CT Code Diagnosis ICD10 Code Diagnosis Note [id number] Suresh adames [address] [address] 02/06/2012 14:37:13 02/09/2012 08:16:56 [id number] Suresh adames [address] [address] 03/08/2012 15:44:48 03/08/2012 16:12:52 [id number] Suresh adames [address] [address] 08/09/2012 07:58:37 08/16/2012 08:50:53 [id number] Vida [facility], OFFICE [address] [place] [address] 11/04/2012 11:15:14 11/04/2012 13:42:[id number] [facility], OFFICE [address] [place] [address] 11/18/2012 16:14:15 11/19/2012 07:57:17 [id number] Glenis Slade PA-C , [facility], OFFICE [address] [place] [address] 11/30/2012 14:08:06 12/01/2012 07:49:12 [id number] [facility], [address] [address] 12/01/2012 09:56:09 12/02/2012 09:24:43 [id number] [facility], [facility] [address] [facility] [place] [address] 12/13/2012 09:52:08 12/14/2012 07:42:08 [id number] Michelle Jett , [facility], OFFICE [address] [facility] [address] 12/17/2012 08:28:56 12/17/2012 09:27:12 Screening mammography [id number] Nuha Iniguez MA , [facility], OFFICE [address] [facility] [place] [address] 02/03/2013 09:46:53 02/03/2013 10:54:35 [id number] Glenis Slade PA-C , [facility], OFFICE [address] [place] [address], [place] [address] 02/17/2013 08:57:54 02/17/2013 09:34:44 [id number] Yun Sullivan , [facility], OFFICE [address] [facility] [place] [address] 03/10/2013 07:07:22 03/10/2013 07:45:07 [id number] Lesli Leigh MD , [facility], OFFICE [address] [facility] [place] [address] 04/15/2013 07:18:02 04/15/2013 07:42:12 Benign essential hypertension 0301406 Well controlled today with good rate control as well. She is back on Metoprolol alternatin g 1 tab 1/2 tab qod. Diltiazem >> dizziness, [place] >> good pressure control but no rate control. Will stay with this for now. F/U prn. Raynaud's disease 338430414 Now has 3 cold fingers. Recommend trial of acupunctur e - she has seen Lana Fairbanks in the past and likes her very much. Agrees to try. Will f/u with outcome and I will continue to investigat e other possible causes. Dizziness 178614940 Cont inues. Meclizine continues to help. Try acupunctur e. If to no avail, may consider imaging as this has continued for quite awhile - ?sinuses, ?neck. [id number] [facility]ali[facility]ulce [facility], [address] [place] [address] 05/23/2013 09:24:44 05/26/2013 09:02:53 Benign paroxysmal positional vertigo 524994252 [id number] Idalia [facility], [address] [place] [address] 05/30/2013 14:59:03 06/01/2013 14:06:23 Benign paroxysmal positional vertigo 723405176 [id number] Idalia [facility], [address], [place] [address] 06/02/2013 07:50:52 06/03/2013 08:12:15 Benign paroxysmal positional vertigo 524562023 [id number] Idalia Schumacherzniak Physical [facility], [address], [place] [address] 06/08/2013 10:00:19 06/09/2013 08:19:39 Benign paroxysmal positional vertigo 237321656 [id number] Rheumatol [facility], [address] [place] [address] 08/19/2013 10:39:26 08/22/2013 10:10:10 Raynaud's disease 097980928 This patient has developed Raynaud's over the [...] in 6 months. Limited sy stemic sclerosis 675628000 At this point incomplet e CREST syndrome . [id number] [place] Limon, [facility], OFFICE [address] [facility] [place] [address] 09/15/2013 09:05:33 09/15/2013 09:56:59 Benign paroxysmal positional vertigo 329706018 Ongoing. Will see Beatrice Woods for eval and treatment. Continue to use meclizine as directed. Stay hydrated. Carpal [place] jason syndrome 79815283 Exam consistent with mild-moder ate carpal tunnel. Reviewed conservati ve vs aggressive treatment - injections , surgery. Will start with braces at nighttime and using ice bid. She can also use NSAIDS prn. Call or RTO if sxs persist/wo rsen. Nasal congestion 85077593 Allergies vs chronic sinusitis? Start Flonase. Continue nasal saline, claritin. [id number] [place] Limon, [facility], OFFICE [address] [facility] [place] [address] 10/27/2013 10:03:07 10/27/2013 11:03:06 Influenza vaccine needed 8963250290 106 Paronychia 22637698 Xray to r/o continued presence of foreign body. Start cephalexin as directed. Advised warm soaks with Epsom salt at least bid-tid. RTO if sxs persist/wo rsen. [id number] Che [facility], [address] [place] [address] 12/19/2013 15:24:50 12/19/2013 16:11:32 Benign paroxysmal positional vertigo 921795845 [id number] Che Woods [facility], [address] [place] [address] 12/21/2013 17:13:35 12/22/2013 08:19:10 Benign paroxysmal positional vertigo 694209725 [id number] Che Woods [facility], [address] [place] [address] 12/27/2013 14:54:41 12/28/2013 16:20:22 Benign paroxysmal positional vertigo 934268391 [id number] Kylah Mehul [facility], OFFICE [address] [facility] [place] [address] 01/02/2014 08:21:00 01/02/2014 09:17:37 Adult health examination 140927214 pap done today, mammogram due 2014, colonoscop y due now, tdap and zostavax given today. Pt counselled on diet, exercise, appropriat e calcium intake, and stress management . see Risk Assessment and Lifestyle Change Counseling section above Screening for malignant neoplasm of colon 468742116 Varicella vaccination 59606101 Administra tion of diphtheria, pertussis, and tetanus vaccine 948572910 Screening for malignant neoplasm of cervix 524283690 Benign ess ential hypertension 6700429 Well controlled , below goal of under 140/90. Can cut back metoprolol to every other day. Continue to monitor BP at home, may be able to d/c completely . Hypothyroidism 31274095 Due for labs. She is feeling some palpitatio ns, so may be over compensate d. Will check labs and f/u with results. If palpitatio ns continue, consider holter monitor. [id number] Che [facility], [address] [place] [address] 07/03/2014 13:01:38 07/04/2014 19:55:43 Hip pain 03338470 [id number] [facility] OFFICE [address] [facility] [place] [address] 07/04/2014 07:58:34 07/04/2014 08:30:29 Influenza vaccine needed 9656944654 106 Varicella vaccination 28193397 Benign ess ential hypertension 2744218 Well controlled , at goal of <140/90. Continue medication s as directed. Excellent work with diet & exercise. Hypothyroidism 67156475 Due for labs. She is feeling some palpitatio ns, so may be over compensate d. Will check labs and f/u with results. If palpitatio ns continue, consider holter monitor. [id number] Che Woods [facility], [address] [place] [address] 07/06/2014 08:31:30 07/07/2014 12:32:29 Hip pain 06501837 [id number] Che [facility], [address] [place] [address] 07/13/2014 15:06:16 07/13/2014 16:21:42 Hip pain 92588585 [id number] Che Woods [facility], [address] [place] [address] 07/20/2014 09:27:05 07/21/2014 08:20:11 Hip pain 27477787 [id number] Ofelia Lopes LPN , [facility], OFFICE [address] [place] [address] [place] [address] 08/22/2014 13:55:53 08/22/2014 14:19:51 Onychia 412375033 Keep clean and dry. Wound care instructio ns reviewed. Continue to soak with Epsom salt and warm water. Will f/u with culture results. [id number] Yun Sullivan [facility], OFFICE [address] [facility] [address] 09/11/2014 14:07:15 09/11/2014 14:56:24 Paronychia of finger 742972986 rt 4th finger./ mild recurrent / grew citrobacte r last time/ will try Bactrim/ has chronic component all nails? refer dermatolog y [id number] Kylah [facility], OFFICE [address] [place] [address] 01/25/2015 13:19:27 01/25/2015 14:20:09 Screening for malignant neoplasm of colon 505711408 Screening mammography 25328318 Adult heal th examination 103095662 see Risk Assessment and Lifestyle Change Counseling section above Administra tion of diphtheria, pertussis, and tetanus vaccine 265158299 [id number] Yun ROY, [facility], OFFICE [address] [facility] [address] 04/17/2015 08:54:07 04/17/2015 09:21:59 Lifestyle 981530531 Sciatica 15757742 [id number] Jyothi Cloud, PT [facility], [address] [place] [address] 04/18/2015 10:08:11 04/18/2015 16:11:08 Hip pain 31459973 Sciatica 99866861 Inflammati on of sacroiliac joint 41643623 [id number] Jyothi Cloud, PT Physical Therapy, [address] [place] [address] 04/25/2015 08:36:09 04/26/2015 08:47:50 Hip pain 67795077 Sciatica 73338962 Inflammati on of sacroiliac joint 42017007 [id number] Yun Sullivan , [facility], OFFICE [address] [place] [address] [place] [address] 05/16/2015 14:21:12 05/16/2015 15:02:05 Influenza vaccine needed 1644739309 106 Onychomycosis 647727924 Noted Id reaction, I suspect a fungal infection. Reviewed soaking with Epsom salts, and keeping skin clean & dry. Use of clotrimazo le and oral fluconazol e reviewed. Discussed risks, benefits, side effects, and limitation s of medication . Lifestyle 631904278 [id number] Peace Ruano NP , [facility], OFFICE [address] [place] [address] [place] [address] 06/07/2015 14:19:45 06/07/2015 14:52:54 Onychomycosis 896392808 B35.1 Continued Id reaction, I suspect an ongoing fungal infection. Reviewed soaking with Epsom salts, and keeping skin clean & dry. Use of clotrimazo le and oral terbinafin e reviewed. Discussed risks, benefits, side effects, and limitation s of medication . Consulted with BWW on case. [id number] Che Woods Physical [facility], [address] [place] [address] 06/21/2015 07:50:12 06/21/2015 10:45:22 Benign paroxysmal positional vertigo 768550632 H81.13 [id number] Che Woods Physical [facility], [address] [place] [address] 06/25/2015 12:54:48 06/25/2015 18:04:06 Benign paroxysmal positional vertigo 853386486 H81.13 [id number] RICO Quinones, [facility], OFFICE [address] [facility] [place] [address] 07/05/2015 14:11:01 07/05/2015 15:37:21 Benign essential hypertension 1611956 I10 Well controlled , at goal of <140/90. Encouraged increased activity, weight loss, heart healthy diet. continue medication s as directed. Raynaud's disease 650691 006 I73.00 Very likely part of a CREST-like picture. Has f/u with Dr. Leigh tomorrow. [id number] Vida Llernst Rheumatol [facility] [address] [facility] [place] [address] 07/06/2015 08:41:00 07/16/2015 07:48:13 Raynaud's disease 201953328 I73.00 Basically stable pattern of Raynaud's, but [...] dressing warm etc. Limited sy stemic sclerosis [id number] M34.9 Limited scleroderm a with features that [...] to monitor for pulmonary hypertensi on. Paronychia 23296928 L03. 447 [id number] Lesli Leigh MD Rheumatol [place], [address] [place] [address] 09/07/2015 08:44:36 09/07/2015 12:07:26 Limited systemic sclerosis 322271255 M34.9 Limited scleroderm a with features that include Raynaud's, mild sclerodact yly, telangiect shayan, symptoms of mild esophageal dysmotilit y. She has a high titer anticentro mere antibody. Had normal echocardio gram (the ecchocardi ogram report suggested R heart catheteriz ation, but this is not clinically indicated) . Routine f/u 6 mo. Finger ulcer 834109264 L 98.499 Distal digital ulceration R middle [...] if any worsening Raynaud's. Raynaud's phenomenon 266 765668 I73.00 [id number] [facility], [address] [place] [address] 10/02/2015 09:31:48 10/03/2015 23:23:19 Benign paroxysmal positional vertigo 560161893 H81.13 [id number] [place] Bender, [facility], OFFICE [address] [facility] [place] [address] 03/28/2016 10:30:17 03/28/2016 11:39:24 Acute upper respiratory infection 86245697 J06.9 Educated patient that URI is a [...] resolve in 2-4 weeks. Coxsackie virus disease 723759745 B34.1 Viral infection, very likely hand foot and mouth disease. Reviewed supportive care and return precaution s. [id number] Belkis Tabares MD , [facility], OFFICE [address] [facility] [place] [address] 03/29/2016 09:56:21 03/29/2016 10:42:35 Spasm of back muscles 484856524 M62.830 We reviewed the basic pathophysi ology [...] motrin 600 mg three times a day [id number] Enrique Zaman, PT Physical Therapy, [address] [place] [address] 03/31/2016 13:37:00 04/01/2016 08:39:49 Low back pain 066334353 M54.5 Sacroiliac joint pain 20 0834067 M53.3 [id number] Jeanine ROY, [facility], OFFICE [address] [facility] [place] [address] 04/07/2016 11:48:34 04/07/2016 13:29:[address] was negative in Trthe ED, but pt has continued sinus congestion , sore throat, PND. Empiric tx with abx as nothing else is working. Reviewed medication risks, benefits, side effects, and limitation s. Anti-nucle ar factor detected 252839969 R76.8 Grossly positive CLIFF drawn in 07/2015. Now in the context of elevated ESR, ? positive blood culture, and pharyngiti s. Will check back with rheumatolo gy for further eval and rx. [id number] Lesli Leigh MD Rheumatol rosangela, [facility] [address] [facility] [place] [address] 1 04/16/2016 08:55:37 04/16/2016 09:34:02 Limited systemic sclerosis 533461878 M34.9 Limited scleroderm a with features that [...] be followed. Routine f/u 6 mo. Pneumonitis 295980221 J1 2.9 Recent small RML consolidat ion on CXR. Repeat in about 2 weeks. Raynaud's phenomenon 266 851117 I73.00 Continue Amlodipine . Used some NTG ointment las winter. Primary fi bromyalgia syndrome 91107425 M79.7 The patient has some fairly mild diffuse musculoske letal pains associated with a prominent sleep disruption . At the moment she is not bothered much, has fair energy and feels well.Encou raged regular exercise, return for this as needed.. [id number] RICO Quinones, [facility], OFFICE [address] [facility] [facility] [address] 1 06/17/2016 08:15:19 06/17/2016 09:12:56 Adult health examination 986202998 Z00.00 see Risk Assessment and Lifestyle Change Counseling section above Counseling 208902034 Z71 .9 Encouraged increased activity and joining a gym, pt agreeable and plans to join a gym, will continue to eat a low fat and vegan diet, also encouraged mediterran marion diet Active or passive immunization 469380053 Z23 Subconjunc tival hemorrhage 46334080 H11.31 Asymptomat ic, instructed if unresolved in 10 days to F/U Benign ess ential hypertension 8061588 I10 BP at goal, [facility] [id number] [facility], [address] [place] [address] 07/14/2016 15:50:36 07/15/2016 08:06:45 Benign paroxysmal positional vertigo 781673783 H81.13 [id number] [facility], [address] [address] 1 07/31/2016 11:14:06 08/04/2016 07:42:56 Benign paroxysmal positional vertigo 609121600 H81.13 [id number] [facility], [address] [address] 1 08/06/2016 16:20:02 08/07/2016 10:57:56 Benign paroxysmal positional vertigo 402168060 H81.13 [id number] [facility], [address] [address] 1 08/21/2016 07:51:48 08/21/2016 16:07:07 Benign paroxysmal positional vertigo 528965047 H81.13 [id number] Che Woods Physical [facility], [address] [address] 09/15/2016 09:22:57 09/15/2016 15:40:37 Benign paroxysmal positional vertigo 395800369 H81.13 [id number] Enrique Jones MD , [facility], OFFICE [address] [place] [address] 1 09/18/2016 08:45:46 09/18/2016 09:28:05 Palpitations 40155288 R00.2 continue to avoid caffeine, sudafed, holter in past unrevealin g, followup as needed. Discussed exercise. Obesity 408459807 E66.9 retiring next week, discussed Y program [id number] Jyothi Cloud, PT Physical Therapy, [address] [address] 11/26/2016 10:06:14 11/27/2016 08:07:38 Low back pain 120848130 M54.5 Sacroiliac joint pain 20 9816899 M53.3 [id number] Ambrocio Baugh MD Sports Medicine, [address] [place] [place] [address] 12/04/2016 13:20:22 12/05/2016 09:20:39 Hip pain 45132010 M25.551 M25.552 Rajani is a 66-year-ol d [...] a trochanter ic bursa corticoste roid injection. [id number] Jyothi Cloud PT Physical Therapy, [address] [place] [address] 1 12/16/2016 16:10:26 12/17/2016 13:16:15 Low back pain 174164489 M54.5 Sacroiliac joint pain 20 0996119 M53.3 [id number] Jyothi Cloud PT Physical Therapy, [address] [place] [address] 1 12/23/2016 13:06:34 12/23/2016 14:08:48 Low back pain 625361169 M54.5 Sacroiliac joint pain 20 7584168 M53.3 [id number] Peace Ruano NP FP, [facility], OFFICE [address] [place] [address] [place] [address] 1 12/25/2016 12:38:08 12/25/2016 13:16:45 Limited systemic sclerosis 795835055 M34.9 Sxs improved with use of CCB. Continue. Will f/u with rheumatolo gy as directed. Benign ess ential hypertension 3920088 I10 BP at goal of <140/90. Continue diet, exercise, medication s. [id number] Jyothi Cloud, PT Physical Therapy, [address] [place] [address] 12/26/2016 12:57:05 12/26/2016 14:20:48 Low back pain 554655023 M54.5 Sacroiliac joint pain 20 9463158 M53.3 [id number] Jyothi Cloud, PT Physical Therapy, [address] [place] [address] 1 12/26/2016 14:53:31 12/26/2016 14:53:47 [id number] Belkis Tabares MD , [facility], OFFICE [address] [place] [address], [place] [address] 01/13/2017 13:02:05 01/13/2017 16:52:17 Acute allergic serous otitis media 54139299 H65.119 Tincture of time - acute serous [...] helpful. RTC if pain or fevers develop. [id number] TIMMY Narayanan , [facility], OFFICE [address] [place] [address], [place] [address] 05/06/2017 15:02:11 05/06/2017 15:30:13 Hypothyroidism 28126946 E03.9 Pt very fatigued latelyLast TSH 4.79 in 2015Taking levothyrox ine 75 mcgWill check TSH today and follow up with result and plan of care as needed Benign ess ential hypertension 0088077 I10 Well-contr olled on HCTZ and amlodipine , but with potential side effects of amlodipine , including dizziness and bilateral foot edemaWill trial amlodipine 2.5 mg daily, and she will return to Dr Leigh to discuss repeat echo and changing medication for rate control [id number] Lesli Leigh MD Rheumatol ogy, [address] [place] [address] 05/25/2017 13:32:18 05/25/2017 16:45:06 Limited systemic sclerosis 824766788 M34.9 Limited scleroderm a with features that include Raynaud's, mild sclerodact yly, telangiect shayan, symptoms of mild esophageal dysmotilit y. She has a high titer anticentro mere antibody. Had normal echocardio gram. No change in any symptoms. Did have digital ulceration last October, slowly healed. Will update labs. Routine f/u 6 mo. Tachycardia 7624739 R00. 0 Actually upper normal HR, generally [...] when weather gets cooler. Raynaud's phenomenon 266 840677 I73.00 See above. Digital ulcer last October. Resume amlodipine in cooler weather. Used some NTG ointment last winter. Continue careful attention to keeping adequately warm. Bursitis of shoulder 239 261982 M75.51 Rotator cuff tendinitis / bursitis R shoulder.R efer for PT. [id number] [facility], [address] [address] 07/21/2017 08:51:26 07/21/2017 20:28:31 Shoulder pain 59593544 M25.511 M25.512 Dizziness 425223583 R42 [id number] Lesli Leigh MD Rheumatol ber[place], [address] [address] 07/31/2017 09:54:36 07/31/2017 11:14:12 Limited systemic sclerosis 949607027 M34.9 Limited scleroderm a with features that [...] f/u 6 mo. Paronychia of finger 444 282630 L03.019 L 4th finger. The finger itself is well perfused at present, though he has significan t Raynaud's at times and has had digital ulceration in past.Discu ssed treatment paronychia . Soak, Keflex.Als o try Nitro-bid ointment for this one finger to help ensure good perfusion. Raynaud's phenomenon 266 852805 I73.00 See above. Digital ulcer last October. Now paronychia l infection. Continue careful attention to keeping adequately warm. Continue amlodipine . [id number] Che Woods Physical [facility], [address] [place] [address] 08/03/2017 11:25:35 08/03/2017 12:22:14 Shoulder pain 68768728 M25.511 M25.512 Dizziness 830441670 R42 [id number] Che Woods [facility], [address] [place] [address] 08/06/2017 11:19:10 08/07/2017 09:54:28 Shoulder pain 63241260 M25.511 M25.512 Dizziness 807889979 R42 [id number] Che Woods Physical [facility], [address] [place] [address] 08/25/2017 12:22:51 08/25/2017 12:58:39 Shoulder pain 14291642 M25.511 M25.512 Dizziness 656024633 R42 [id number] Che Woods Physical [facility], [address] [address] 11/11/2017 12:23:27 11/12/2017 16:37:09 Benign paroxysmal positional vertigo 912017836 H81.12 [id number] Peace Ruano NP , [facility], OFFICE [address] [place], [place] [address] [address] 11/12/2017 14:08:00 11/12/2017 16:23:31 Dizziness 643979946 R42 Has appt with PT as well. Screening mammography 24 777869 Z12.31 Acute sinusitis 18583434 J01.90 Pt presents today for evaluation of [...] time. Screening for malignant neoplasm of colon 382576270 Z12.11 [id number] Che Woods Physical [facility], [address] [address] 11/12/2017 14:34:59 11/12/2017 16:34:28 Benign paroxysmal positional vertigo 550515083 H81.12 [id number] Che Woods Physical [facility], [address] [address] 11/17/2017 09:22:32 11/17/2017 12:14:15 Benign paroxysmal positional vertigo 082043436 H81.12 [id number] Che Woods Physical [facility], [address] [address] 12/02/2017 11:22:19 12/02/2017 13:39:38 Benign paroxysmal positional vertigo 950912219 H81.12 [id number] Che Woods Physical [facility], [address] [address] 12/22/2017 12:26:25 12/22/2017 19:48:05 Benign paroxysmal positional vertigo 357042410 H81.12 [id number] TIMMY Macias , [facility], OFFICE [address] [place] [address] 12/23/2017 10:12:02 12/23/2017 12:20:02 Benign paroxysmal positional vertigo 926090200 H81.13 Hx. of BPPV, likely exacerbate d by recent URI and plane ride. Neuro exam unremarkab le with no red flag symptoms. Already seeing PT for vestibular exams. Has Meclizine. Start Flonase. Advised on home Gin maneuver. Slow position changes. Reviewed ER/return precaution s. [id number] [facility], [address] [place] [address] 12/23/2017 12:52:51 12/23/2017 13:50:58 Benign paroxysmal positional vertigo 128058880 H81.12 [id number] [facility], [address] [place] [address] 12/24/2017 11:19:03 12/27/2017 21:15:10 Benign paroxysmal positional vertigo 923002258 H81.12 [id number] Richa Johnston , TIMMY FP, [facility], OFFICE [address] [facility] [place] [address] 12/29/2017 13:16:02 12/29/2017 14:17:05 Adult health examination 312087261 Z00.00 see Risk Assessment and Lifestyle Change Counseling section aboveLabs reviewed Counseling 756441383 Z71 .9 Depression screening 171 783459 Z13.89 depression screening tool administer ed, entered into emr, scored and discussed, time greater than 7.5 minutes Benign ess ential hypertension 2417746 I10 Blood pressure at goal, Continue meds. HR is elevated, chronic per patient. Will continue to monitor and call if ongoing elevation. States that when she exercises it usually will come down overall. Previously on low dose beta adair but does not wish to start again today. Screening for malignant neoplasm of colon 939801875 Z12.11 Reviewed that the gold standard of colorectal cancer screening is a colonoscop y. Patient is not interested in this at this time and would like to do IFOB cards. Discussed that positive test result should then warrant colonoscop y. Also informed patient of importance of annual screening with IFOB cards. Patient verbalizes understand ing to this plan. Acute sinusitis 32837023 J01.90 Pt presents today for evaluation of [...] or worsen at any time. Hypercholesterolemia 136 24717 E78.00 Lipid levels slightly. ASCVD risk of 9.6%. Patient opting to make lifestyle modificati ons and recheck in 6 months over meds. Screening mammography 24 120884 Z12.31 Due to have mammo. Dizziness 039766000 R42 Still suspect BPPV ? if exacerbate d by acute sinusitis. Trial abx, continue PT, follow up later this week. [id number] [facility], [address] [place] [address] 12/29/2017 14:16:43 12/30/2017 07:59:55 Benign paroxysmal positional vertigo 546539078 H81.12 [id number] [facility], [address] [place] [address] 12/31/2017 13:23:45 12/31/2017 14:07:25 Benign paroxysmal positional vertigo 131089017 H81.12 [id number] [facility], [address] [place] [address] 03/10/2018 13:59:23 03/11/2018 12:12:38 Shoulder pain 26869964 M25.772 [id number] [facility], [address] [place] [address] 03/22/2018 15:52:29 03/22/2018 16:36:57 Shoulder pain 96594201 M25.709 [id number] Joanna Thurman, PT Physical Therapy, [address] [place] [address] 07/12/2018 16:22:54 07/13/2018 09:48:57 Benign paroxysmal positional vertigo 094756724 H81.11 [id number] Joanna Thurman, PT Physical Therapy, [address] [place] [address] 07/14/2018 12:05:50 07/14/2018 14:01:38 Benign paroxysmal positional vertigo 707320587 H81.11 [id number] RICO Quinones, [facility], OFFICE [address] [place] [address] 07/15/2018 13:01:26 07/15/2018 13:43:13 Benign essential hypertension 8108033 I10 Blood pressure well below goal. Could likely taper off HCTZ, but she finds that this flares up her BPPV. Continue low dose HCTZ, reviewed diet, exercise, hydration, and weight loss. Active or passive immunization 433338503 Z23 Benign par oxysmal positional vertigo 039020165 H81.10 Ongoing. Will see Beatrice Woods for eval and treatment. Continue to use meclizine as directed. Stay hydrated. Suggested acupunctur e for treatment. [id number] [facility], [address] [address] 08/17/2018 11:19:11 08/17/2018 21:10:32 Benign paroxysmal positional vertigo 037463360 H81.12 [id number] [facility], [address] [address] 1 08/19/2018 08:53:11 08/20/2018 21:43:05 Benign paroxysmal positional vertigo 758256427 H81.12 [id number] Che Woods Physical [facility], [address] [address] 08/26/2018 09:53:12 08/26/2018 16:32:41 Benign paroxysmal positional vertigo 731509576 H81.12 [id number] RICO Quinones, [facility], OFFICE [address] [place] [address] 11/08/2018 07:28:42 11/08/2018 07:50:11 Onychomycosis 852450028 B35.1 I suspect an ongoing fungal infection. Reviewed soaking with Epsom salts, and keeping skin clean & dry. Use of clotrimazo le and oral terbinafin e reviewed. Discussed risks, benefits, side effects, and limitation s of medication . She opted to not use rx medication at this time, will f/u if sxs persist/wo rsen [id number] Joanna Thurman, PT Physical Therapy, [address], [place] [address] 11/25/2018 10:47:08 11/26/2018 08:18:11 Benign paroxysmal positional vertigo 465539936 H81.12 [id number] Joanna Thurman, PT Physical Therapy, [address] [place], [place] [address] 11/26/2018 09:26:09 11/26/2018 10:25:05 Benign paroxysmal positional vertigo 526034905 H81.12 [id number] Caprice Bonner D.O. , [facility], OFFICE [address] [facility] [place], [place] [address] 12/09/2018 10:44:38 12/09/2018 11:19:40 Ingrowing toenail 957871856 L60.0 discussed continue warm soaks until she can see podiatry. Onychomycosis 101079434 B35.1 Pre-surger y evaluation 536845751 Z01.818 low risk for low risk surgery. forms completed and faxed to [facility] . Cataract of left eye 860 1030515 2424631 H26.9 low risk for low risk surgery. forms completed and faxed to [facility] . [id number] Georgina Joshi DPM Podiatry, [address] [place] [address] 12/23/2018 07:44:49 12/23/2018 10:17:20 Ingrowing toenail 028312734 L60.0 right great toe ingrown toenail lateral [...] pain medication prn pain. Pain in toe 015450704 M7 9.405 [id number] Peace Ruano NP , [facility], OFFICE [address] [place] [address] jo, [place] [address] 12/31/2018 09:26:21 12/31/2018 10:18:19 Adult health examination 067603464 Z00.00 see Risk Assessment and Lifestyle Change Counseling section above Counseling 250740712 Z71 .9 Encouraged increased activity and joining a gym, pt agreeable and plans to join a gym, will continue to eat a low fat and vegan diet, also encouraged mediterran marion diet Depression screening 171 136379 Z13.89 depression screening tool administer ed, entered into emr, scored and discussed, time greater than 7.5 minutes Benign ess ential hypertension 7849451 I10 Blood pressure at goal. She feels better with better control and decreased pulse. OK to restart beta adair, continue HCTZ. RTO for recheck in 3 months. [id number] Georgina Joshi DPM Podiatry, [address] [place] [address] 01/05/2019 13:09:59 01/06/2019 13:32:18 Ingrowing toenail 521132021 L60.0 right great toe healing. We await bx results. Pt instructed to soak for another week. Ok to leave toe open to air. RTC prn. I spent 15 mins face to face with patient, more 50% spent in counseling and coordinati on of care. Pain in toe 491785119 M7 9.604 [id number] Kitty Osorio RN , [facility], OFFICE [address] [facility] [place] [address] 02/01/2019 14:24:10 02/01/2019 14:45:25 Benign essential hypertension 0554058 I10 Blood pressure at goal. She feels better with better control and decreased pulse. OK to restart beta adair, continue HCTZ. RTO for recheck in 3 months. [id number] Peace Ruano NP FP, [facility], OFFICE [address] [place] [address] 03/01/2019 08:32:48 03/01/2019 09:09:54 Palpitations 48555693 R00.2 EKG revealed occ PAC's. Reviewed benign nature of this condition, monitoring for sxs worsening, and avoiding things like caffeine & etoh. Benign ess ential hypertension 4679392 I10 Blood pressure at goal. She feels better with better control and decreased pulse. OK to restart beta adair, continue HCTZ. [id number] Peace Ruano NP , [facility], OFFICE [address] [facility] [place] [address] 04/04/2019 08:47:16 04/05/2019 15:13:04 Benign essential hypertension 3854415 I10 Tolerating meds well. BP at goal of <130/90. Continue meds as directed. Schedule PHA and BP check in December 2019. [id number] Michelle Luevano LPN , [facility], OFFICE [address] [place] [address], [place] [address] 07/07/2019 06:59:44 07/08/2019 06:48:53 Active or passive immunization 638275132 Z23 [id number] Joanna Thurman PT Physical Therapy, [address] [place] [address] 03/18/2021 14:17:44 03/19/2021 09:00:32 Benign paroxysmal positional vertigo 298629325 H81.12 [id number] Joanna Thurman PT Physical Therapy, [address] [place] [address] 1 03/25/2021 08:51:43 03/25/2021 10:50:40 Benign paroxysmal positional vertigo 821696132 H81.12 [id number] Joanna Thurman PT Physical Therapy, [address] [place] [address] 03/26/2021 10:52:43 03/26/2021 11:48:09 Benign paroxysmal positional vertigo 153269340 H81.12 [id number] Joanna Thurman PT Physical Therapy, [address] [place] [address] 1 03/28/2021 09:24:44 03/28/2021 10:20:20 Benign paroxysmal positional vertigo 774332525 H81.12 [id number] Joanna Thurman PT Physical Therapy, [address] [place] [address] 1 04/12/2021 08:24:37 04/12/2021 09:25:30 Benign paroxysmal positional vertigo 143260678 H81.12 [id number] Joanna Thurman PT Physical Therapy, [address] [place] [address] 1 04/15/2021 14:53:19 04/15/2021 15:45:40 Benign paroxysmal positional vertigo 618774575 H81.12 [id number] Joanna Thurman, PT Physical Therapy, [address], [place] [address] 04/19/2021 08:27:31 04/19/2021 09:32:27 Benign paroxysmal positional vertigo 684626840 H81.12 [id number] Joanna Thurman, PT Physical Therapy, [address], [place] [address] 04/29/2021 09:53:42 04/29/2021 11:05:00 Benign paroxysmal positional vertigo 418910202 H81.12 [id number] Joanna Thurman, PT Physical Therapy, [address], [place] [address] 05/07/2021 07:45:05 05/08/2021 07:52:53 Benign paroxysmal positional vertigo 893129273 H81.12 [id number] Joanna Thurman, PT Physical Therapy, [address], [place] [address] 1 05/15/2021 10:50:25 05/15/2021 12:12:27 Benign paroxysmal positional vertigo 908858189 H81.12 [id number] Joanna Thurman, PT Physical Therapy, [address], [place] [address] 1 11/26/2021 08:24:40 11/26/2021 09:31:24 Benign paroxysmal positional vertigo 205324485 H81.13 [id number] Joanna Thurman, PT Physical Therapy, [address], [place] [address] 11/28/2021 11:26:26 11/28/2021 12:31:18 Benign paroxysmal positional vertigo 832846711 H81.13 [id number] Joanna Thurman, PT Physical Therapy, [address], [place] [address] 12/02/2021 10:24:19 12/02/2021 11:05:50 Benign paroxysmal positional vertigo 179895149 H81.13 [id number] Joanna Thurman, PT Physical Therapy, [address], [place] [address] 12/06/2021 09:23:36 12/06/2021 10:00:25 Benign paroxysmal positional vertigo 898402357 H81.13 [id number] Joanna Thurman, PT Physical Therapy, [address], [place] [address] 04/28/2022 11:21:21 04/28/2022 12:29:18 Benign paroxysmal positional vertigo 938354676 H81.13 [id number] Joanna Thurman, PT Physical Therapy, [address] [place] [address] 1 05/02/2022 09:55:35 05/02/2022 10:53:33 Benign paroxysmal positional vertigo 451119239 H81.13 [id number] Joanna Thurman, PT Physical Therapy, [address] [place] [address] 1 05/06/2022 11:42:39 05/07/2022 08:41:59 Benign paroxysmal positional vertigo 112162421 H81.13 [id number] Jyothi Cloud, PT Physical Therapy, [address] [place] [address] 1 04/03/2023 11:14:07 04/03/2023 15:28:29 Left-sided piriformis syndrome 1626762443 51449 M54.32 Trochanter ic bursitis of left hip 1223785208 25029 M70.62 Inflammati on of sacroiliac joint 63763651 M46.1 [id number] DAJA LIN, PT Physical Therapy, [address] [place] [address] 01/26/2024 10:47:07 01/26/2024 14:46:41 Benign paroxysmal positional vertigo 281096765 H81.11 [id number] DAJA LIN, PT Physical Therapy, [address] [place] [address] 1 01/28/2024 15:48:34 01/28/2024 17:01:06 Benign paroxysmal positional vertigo [id number] H81.11 Health Concerns Section Related Observation LastModified by Organization Detai ls LastModified Time None Recorded Concern Status LastModified by Organization Details LastModified Time None Recorded Advance Directives Directive N: Discussed and gave form . [place] P[place] Encounter Date Sequence Insurance Name Policy Number Policy Arizmendi Covered Member ID Arizmendi Member ID Guarantor Name 05/02/2022 2 [facility] 1 (MEDICARE SUPPLEMENT) [id number] 01 Rajani S Mitchkoski [id number] Rajani Mitchkoski 05/02/2022 1 [place] [employer] [place] Rajani S Mitchkoski [id number] Rajani Mitchkoski 05/06/2022 2 ED [facility] PLAN 1 (MEDICARE SUPPLEMENT) [id number] Rajani S Mitchkoski [id number] Rajani Mitchkoski 05/06/2022 1 [place] Rajani S Mitchkoski [id number] Rajani Mitchkoski 04/03/2023 2 [facility] PL[facility] 1 (MEDICARE SUPPLEMENT) [id number] Rajani S Mitchkoski [id number] Rajani Mitchkoski 04/03/2023 1 [place] Rajani S Mitchkoski [id number] Rajani Mitchkoski 01/26/2024 2 [facility] 1 (MEDICARE SUPPLEMENT) [id number] 01 Rajani S Mitchkoski [id number] Rajani Mitchkoski 01/26/2024 1 [place] Rajani S Mitchkoski [id number] Rajani Mitchkoski 01/28/2024 2 [facility] 1 (MEDICARE SUPPLEMENT) [id number] 01 Rajani S Mitchkoski [id number] Rajani Mitchkoski 01/28/2024 1 [place] [place] Rajani S Mitchkoski [id number] Rajani Mitchkoski Notes Date Note Type Note Provider Name and Address Organization Details Recorded Time 05/02/2022 text/html Dolly statest th at she is feeling better. She reports that she has not been having dizziness when rolling in bed. Joanna Thurman, PT [address] [facility], [place], [address], [facility] 05/02/2022 10:25:34 05/06/2022 text/html Dolly states bety t she has been feeling pretty good. I have only felt it once a tiny bit when I was rolling in bed. Joanna Thurman, PT [address] [place], [address], [facility] 05/07/2022 07:57:17 04/03/2023 text/html PT Initial Eval*Reported bypatient.Symptom intensity:average 10 Symptom duration:occasional ly Symptom change:symptoms are getting [...] by chiro/acupressure clinicians. Jyothi Cloud, PT [address] [place], [address], [facility] 04/03/2023 15:06:53 01/26/2024 text/html Pt is a 73 f referred by PCP (Soto STINSON at [facility]) for vertigo. This episode onset a [...] or when sleeping. SHANTAL LIN, PT [address] [place], [address], [facility] 01/26/2024 14:36:17 01/28/2024 text/html [place] great the first day, and generally speaking, [...] f referred by PCP (Soto STINSON at [facility]) for vertigo. This episode onset a [...] or when sleeping. SHANTAL LIN, PT [address] [facility], [place], [address], [facility] 01/28/2024 16:25:36 OBGyn Episode No OBEpisode recorded.
--- OUTSIDE RECORDS SUMMARY | 2024-10-13 16:19 | XMS_ITS | Encounter Summary ---
Author Organization [employer] Address [address] [place] [address] Care Team Providers Care Auto Radio Mechanic Name Role Phone Provider, Not In System Primary Care Provider Un available Encounter Details Date Type Department Care Team (Late st Contact Info) Description 01/01/2024 Telephone [facility] [address] [place] [address] Provider, Not In System Social [...] on filedocumented in this encounter Care Teams Auto Radio Mechanic Relationship Specialty Start Date End Date Provider, Not In System PCP - General Family Medicine 06/19/23 documented as of this encounter
== END 2024-10-13 16:15 | disposition home or self-care (01) ==
LOC: HO.HPS 16:16
PROVIDERS: PCP Internal Medicine; Visit Provider Internal Medicine Pulmonary Disease
DX: J84.9 Interstitial pulmonary disease, unspecified (principal); J81.1 Chronic pulmonary edema
CPT/HCPCS: 99214

== ENCOUNTER → 2024-10-13 15:41 | Outpatient (BNVA) | payer MEDICARE, OTHER, SELFPAY | PROVIDERS: PCP Internal Medicine; Visit Provider Internal Medicine Pulmonary Disease | DX: J84.9 Interstitial pulmonary disease, unspecified (principal); J81.1 Chronic pulmonary edema | CPT/HCPCS: 99212 ==

== ENCOUNTER 2024-11-01 06:45 | Outpatient (REF) | payer MEDICARE, OTHER, SELFPAY ==
--- NOTE | ~2024-11-01 | FL_ITS ---
EXAMINATION: FLUOROSCOPY GUIDANCE FOR NEEDLE PLACEMENT CLINICAL INFORMATION: M47.816 - Spondylosis without myelopathy or radiculopathy, lumbar region COMPARISON: None available. TECHNIQUE: Intraoperative fluoroscopy guidance was provided to referring physician. No radiologist present. FINDINGS/ FL/FL guidance in treatment room IMPRESSION: There a 6 digital images obtained in OR . There are needles positioned bilaterally at L5-S1 and L4-5 neural foramina. Fluoroscopy time 0.3 minutes DOSE AREA PRODUCT: 0.176 uGy-m2 (microgray-meter squared) Electronically signed by: Vladimir Moss MD 11/02/2024 10:29 AM [facility]
--- OUTSIDE RECORDS SUMMARY | 2024-11-01 06:48 | XMS_ITS | Continuity of Care Document ---
Author Organization [facility] Address [address] [place] [address] [address] [place], [place] Phone [phone] Care Team Providers Care Director Of Donor Relations Name Role Phone Dayan Barragan MD Care Team Information Rec eiver Unavailable Social History Type Date Description Comments Sex Unknown
--- OUTSIDE RECORDS SUMMARY | 2024-11-01 06:48 | XMS_ITS | Continuity of Care Document ---
Author Organization [facility] Address [address] [place] [address]- Care Team Providers Care Precision Mechanical Instrument Maker Name Role Phone Don MARION, Hank Benoit Primary Care Physic hernando Encounter [facility] Date(s): 09/13/24 - 10/13/24 [facility] [address] [place] [id number] Encounter Type: Triage Allergies, Adverse Reactions, Alerts Substance Criticality Severity Reaction Reaction Severity Status codeine Active propranolol Active Immunizations Given and Recorded Vaccine Date Status Refusal Reason [id number] 12y+ bivalent booster vax 09/08/22 Recorded influenza [...] Refills, Maintenance, 12/31/23 2:19:00 PM EDT, Tablet, [facility], Partial fill upon patient request if the prescription is for a schedule II opioid drug., 159, cm, 12/31/23 7:50:00 EDT, Height, 84.6, kg, 12/17/23 8:19:00 EDT,Dry Weight Start Date: 12/31/23 Status: Ordered Quantity: 30.0 Unit: tablet Repeat number: 3 azaTHIOprine 50 mg oral tablet 2 [id number] mg, By Mouth, Daily in AM, Refills [...] 1:16:00 PM EST, Route to Pharmacy Electronically, [facility] #[id number], Partial fill upon patient request if the [...] 1:16:00 PM EST, Route to Pharmacy Electronically, [facility] #[id number], Partial fill upon patient request if the [...] 1:17:00 PM EST, Route to Pharmacy Electronically, [facility] #[id number], Partial fill upon patient request if the [...] Date: 10/02/24 Status: Ordered Repeat number: 1 Naproxen 1 tab, By [...] Date: 09/29/24 Status: Ordered Repeat number: 1 traMADol 50 mg oral [...] atus Informant Obese class I Confirmed Active Social History Social History Type Response Smoking Status Former smoker, quit more than 30 days ago entered on: 09/29/24 Sex Sex Representation Female (finding) Patient Care team information Care Team Personnel Name: Lazara Cowan RN Position: [facility] RN Member Role: Primary Care Nurse Name: Jud Ochoa Position: [facility] RN Supv Member Role: Primary Care Nurse Name: Kris Leigh MD Position: [facility] Physician (General Medicine) Member Role: Lifetime Consulting Physician Address: [address] [place] [address]- Telecom: Name: Oly Garcia RN Position: [facility] RN Member Role: Primary Care Nurse Name: Doyle Pacheco RN Position: [facility] RN Member Role: Primary Care Nurse Name: Monik Betancourt Position: [facility] Outreach Member Role: Lifetime Consulting Physician Name: Yoly Carr RN Position: [facility] RN Member Role: Primary Care Nurse Name: Sally Peres RN Position: [facility] RN Member Role: Primary Care Nurse Name: Michel Olivera RN Position: [facility] RN Member Role: Primary Care Nurse Name: Jacqui Alcala RN Position: [facility] RN Member Role: Primary Care Nurse Name: Lavinia Nagy RN Position: [facility] RN Member Role: Primary Care Nurse Name: Hank Ochoa MD Position: Reference Physician Member Role: PCP Address: [address] [place] [address]- Telecom: Care Team Related Persons Name: GRACIELA FELIZ Insurance Providers Guarantor name: DARNELL EVANSBakrai [facility] Information #: 1 Payer: SELF PAY REVIEW PTRQ Member Number: NA Policy Number: NA Group Number: NA
--- OUTSIDE RECORDS SUMMARY | 2024-11-01 06:49 | XMS_ITS | Encounter Summary ---
Author Organization [employer] Address [address] [facility] [address] [place] [address] Care Team Providers Care Dry Lumber Grader Name Role Phone Peace Ruano Primary Care Provider Unavailab le Peace Ruano Unavailable Unavailable Provider, Not In System Primary Care Provider Un available Encounter Details Date Type Department Care Team (Late st Contact Info) Description 07/22/[address] [phone] Peace Ruano FNP Social History Tobacco Use [...] on filedocumented in this encounter Care Teams Dry Lumber Grader Relationship Specialty Start Date End Date Peace Ruano FNP PCP - General Family Medicine 06/27/22 06/18/23 Provider, Not In System PCP - General Family Medicine 06/19/23 Peace Ruano FNP Family Medicine 06/27/22 06/18/23 documented as of this encounter
--- OUTSIDE RECORDS SUMMARY | 2024-11-01 06:49 | XMS_ITS | Clinical Summary ---
Author Organization [employer] Address [address] [facility] [address] [place] [address] Care Team Providers Care Wool Washing Machine Operator Name Role Phone Provider, Not In System [...] Department Care Team Description 10/07/2024 Patient Outreach [address] [phone] Hiwot Smith LPN from Last [...] Lipid Panel, Standard (02/26/2023 3:32 PM EDT) [facility] Cholesterol, Total 124 (<200) MG/DL [facility] Triglyceride (mg/dL) in Serum/Plasma 116 (<150) MG/DL [facility] HDL Cholesterol 49 (>39) MG/DL [facility] LDL Cholesterol, Calculated 52 (0-130) MG/DL [facility] Non HDL Chol. (LDL+VLDL) 75 (<160) MG/DL [facility] Comment: Testing performed or reported by [facility], a Service of [facility], [address] [place] [address] Leo Peres MD, Sanding Machine Operator [facility]# [id number] Blood Venous blood specimen / Unknown 02/26/2023 3:32 PM EDT 02/26/2023 3:35 PM EDT Peace ANTHONYP LAB BLOOD ORDERABLES Final Resul t [address] [address] * FECAL OCCULT BLOOD, IMMUNOCHEMICAL (11/21/2021 8:36 AM EDT) Fecal Occult Blood, Immunochemical (FIT) NEGATIVE [facility] 11/21/2021 8:36 AM EDT Historical Provider LAB BODY FLUIDS AND STOOL S ORDERABLES Final Result [facility] [address] * Fecal immunochemical (11/21/2021) Fecal Immunoassay Test (External) negative Stool Rectal contents / Unknown us Historical Provider LAB BODY FLUIDS AND STOOL S ORDERABLES Final Result from Last 3 Months or Most Recently Relevant to Health Maintenance Insurance MEDICARE [facility] , [address] [place] [address] * Guarantor: Rajani Hart Account Type Relation to Patient Date of Phone Billing Address Dental Self Care Teams Wool Washing Machine Operator Relationship Specialty Start Date End Date Provider, Not In System PCP - General Family Medicine 06/19/23
--- OUTSIDE RECORDS SUMMARY | 2024-11-01 06:49 | XMS_ITS | Data Portability ---
Author Organization [facility], [facility] Address [address] [place] [address] Care Team Providers Care Medical Laboratory Manager Name Role Phone JYOTHI CLOUD Phys. Med. & Rehab [phone] LESLI LEIGH Architecture Analyst Assessment Encounter Date Assessment Date Assessment LastModified [...] symptoms. R sided BPPV has resolved and [place]-Hallpike is negative. She has slight symptoms when testing the L. These are less intense and at this time, pt feels that they are not limiting her function. Left side was treated today with ELDERLY CAREGIVER. Pt prefers to D/C despite positive findings on the L and will return if these symptoms should pose any restrictions in her function. D/C PT [email or web address] Not available 05/07/2022 07:57:01 04/03/2023 04/03/2023 IE 04/03/2309/09 Plan: 1 x/week up to 10 visits over 12 weeks Plan to use CPT codes: 42004 Therapeutic Exercise 20054 Neuromuscular ReEducation 39666 Manual 96560 Therapeutic Activity A: Dolly is a 72 [...] Treatments may include (as appropriate/as indicated): Therapeutic exercise(78888)/Ne uromuscular Reeducation (64867)/Manual Therapy (09665)/Therapeuti c Activities (58314)/Self-care management(44783)/ Attended Electrical Stimulation (70054)/PRN modalities/dry needling/Gait Training (18392)/canalith repositioning(9599 2) [email or web address] Not available 01/26/2024 14:35:58 01/28/2024 01/28/2024 Plan: [...] Treatments may include (as appropriate/as indicated): Therapeutic exercise(95616)/Ne uromuscular Reeducation (53752)/Manual Therapy (37680)/Therapeuti c Activities (89548)/Self-care management(17780)/ Attended Electrical Stimulation (48103)/PRN modalities/dry needling/Gait Training (83828)/canalith repositioning(9599 2) [email or web address] Not available 01/28/2024 16:25:25 Plan of Treatment [...] g Physic hernando: Mary Ann Oliver ms [facility] (Imaging) [address], [place], [address], 08/01/2022 10:24:55 Result Notes None recorded. Problems Name Problem SNOMED Code Status Onset Date Resolution Date Notes Provider Name and Address Organization Details Recorded Time Measuremen t finding outside reference range 010291990 Completed 07/20/2013 Not Available [facility] 3 02:03:25 Benign essential hypertensi on 1182585 Active Sonia tabares, [facility] 6 08:43:18 Multiple joint pain 71729695 Completed 07/20/2013 Not Available [facility] 3 02:02:27 Primary fibromyalg ia syndrome 52054436 Active Not Available [facility] 3 03:15:35 Posterior rhinorrhea 94043019 Completed 12/25/2016 Peace Ruano NP [address] [place] [address], [address] , [facility] 7 13:02:33 Dizziness 672828188 Completed 07/20/2013 Not Available [facility] 3 02:02:09 Raynaud's disease 960619349 Completed 12/25/2016 Peace Ruano NP [address] [place] [address], [address] , [facility] 7 13:02:22 Limited systemic sclerosis 827227439 Active Lesli Leigh MD [address] [place] [address], [address] , [facility] 6 08:40:52 Paronychia 21209371 Completed 12/25/2016 Peace Ruano NP [address] [place] [address], [address] , [facility] 7 13:02:26 Finger ulcer 089011469 Completed 12/25/2016 Peace Ruano NP [address] [place] [address], [address] , [facility] 7 13:02:28 Raynaud's phenomenon 483121633 Active Lesli Leigh MD [address] [place] [address], [address] , [facility] 6 08:40:52 Benign paroxysmal positional vertigo 954032104 Active 2017 Peace Ruano NP [address] [place] [address], [address] , [facility] 8 13:35:50 Problem Notes None recorded. Procedures Surgical History Date Name Laterality Status Provider Name and Address Organization Details Recorded Time 01/28/20 24 Neuromuscular re-education completed SHANTAL LIN, PT [address] [place], [address], [facility] 01/28/2024 16:24:21 01/28/20 24 Treatment and Advice completed SHANTAL LIN, PT [address] [place] [address], [address], [facility] 01/28/2024 16:11:11 01/26/20 24 Physical Activity Counselling completed SHANTAL LIN, PT [address] [place], [address], [facility] 01/26/2024 11:19:50 01/26/20 24 32673: PT Eval Low Complexity completed SHANTAL LIN, PT [address] [place] [address], [address], [facility] 01/26/2024 11:19:54 01/26/20 24 Treatment and Advice completed SHANTAL LIN, PT [address] [place], [address], [facility] 01/26/2024 11:41:10 04/03/20 23 Smoking Cessation Counselling completed Jyothi Cloud, PT [address] [place], [address], [facility] 04/03/2023 11:46:14 04/03/20 23 Physical Activity Counselling completed Jyothi Cloud, PT [address] [place], [address], [facility] 04/02/2023 16:34:25 04/03/20 23 39570: PT Eval Low Complexity completed Jyothi Cloud, PT [address] [place], [address], [facility] 04/02/2023 16:34:25 04/03/20 23 Treatment and Advice completed Jyothi Cloud, PT [address] [place], [address], [facility] 04/03/2023 15:01:47 04/28/20 22 Physical Activity Counselling completed Joanna Thurman, PT [address] [place], [address], [facility] 04/28/2022 11:56:57 11/27/19 22 Physical Activity Counselling completed Joanna Thurman, PT [address] [place], [address], [facility] 11/26/2021 09:01:22 01/01/20 19 Medicare Wellness Visit completed Lenora Johnson [facility] 12/31/2018 09:30:08 12/24/19 19 Toenail Avulsion completed Gerogina Joshi, DPOpal [address] [place], [address], [facility] 12/24/2018 07:47:50 11/26/19 19 Physical Activity Counselling completed Joanna Thurman, PT [address] [place], [address], [facility] 11/26/2018 08:09:43 07/12/20 18 Physical Activity Counselling completed Joanna Thurman, PT [address] [place] [address], [address], [facility] 07/12/2018 16:58:41 03/10/20 18 Physical Activity Counselling [place], [address], [facility] 03/11/2018 07:19:23 03/10/20 18 62943: PT Eval, Moderate [place]ity [place], [address], [facility] 03/11/2018 07:19:32 12/30/19 18 Medicare Wellness Visit completed Annie Renteria [facility] 12/29/2017 13:21:17 11/12/19 18 Physical Activity Counselling completed Che Woods [address] [place] [address], [address], [facility] 11/11/2017 13:04:00 11/12/19 18 00844: PT Eval Low [place]ity [place], [address], [facility] 11/11/2017 13:04:00 07/21/20 17 Physical Activity Counselling [place], [address], [facility] 07/21/2017 19:51:12 07/21/20 17 65942: PT Eval Low Complexity [place], [address], [facility] 07/21/2017 19:51:12 12/27/19 17 12596: Therapeutic Exercise completed Jyothi Cloud, PT [address] [place], [address], [facility] 12/26/2016 13:14:34 12/27/19 17 89398: Ultrasound (1:1) completed Jyothi Cloud, PT [address] [place], [address], [facility] 12/26/2016 13:14:34 12/24/19 17 47127: Therapeutic Exercise completed Jyothi Cloud, PT [address] [place], [address], [facility] 12/23/2016 13:48:37 12/24/19 17 71669: Ultrasound (1:1) completed Jyothi Cloud, PT [address] [place], [address], [facility] 12/23/2016 13:48:21 12/17/19 17 26001: Therapeutic Exercise completed Jyothi Cloud, PT [address] [place], [address], [facility] 12/16/2016 22:06:28 11/27/19 17 Physical Activity Counselling completed Jyothi Cloud, PT [address] [place], [address], [facility] 11/26/2016 10:36:36 11/27/19 17 46998: PT Eval, Moderate Complexity completed Jyothi Cloud, PT [address] [place], [address], [facility] 11/26/2016 21:17:20 07/14/20 16 Physical Activity Counselling completed Che Woods [address] [place], [address], [facility] 07/14/2016 21:45:18 06/17/20 16 Medicare Wellness Visit completed Nuha Sanchez RN [facility] 06/17/2016 08:19:35 03/31/20 16 73174: PT Evaluation completed Enrique Zaman, PT [address] [place], [address], [facility] 03/31/2016 14:00:35 03/28/20 16 POC Strep Testing completed Imelda Godinez MA [facility] 03/31/2016 11:15:45 04/25/20 15 93701: Therapeutic Exercise completed Jyothi Cloud, PT [address] [place], [address], [facility] 04/25/2015 12:45:33 04/25/20 15 06154: Manual Therapy completed Jyothi Cloud, PT [address] [place], [address], [facility] 04/25/2015 12:45:33 04/18/20 15 88093: PT Evaluation completed Jyothi Cloud, PT [address] [place], [address], [facility] 04/18/2015 12:46:49 08/22/20 14 Incise and Drain with packing completed Peace Ruano, [employer] [address] [place], [address], [facility] 08/22/2014 14:22:12 Imaging Results Imaging Date Name Status LastModified by Organiz ation Details LastModified Time 07/30/2022 MAMMO, screening, tomosynthesis, bilateral completed [facility] (Imaging) [address], [place], [address], 08/01/2022 10:24:55 Procedure Notes None recorded. Medical Equipment None Reported. Allergies Allergen ID Allergen Name Allergen Category Reaction Reaction Severity Criticality Documentation Date Start Date Code Code System Note Provider Name and Address Organization Details Recorded Time 000205 propranol ol medicatio n Not available Not available Not available 04/15/2013 8787 RxNorm dizzy at lowes t dose Glenis Slade PA-C [address] [facility], [place], [address], [facility] 3 07:44:52 60484 codeine medicatio n Not available Not available Not available 02/06/2012 2670 RxNorm felt like she was going to Latasha Domínguez null, [facility] 3 11:34:42 Medications Name Sig Start Date [...] bromide 42 mcg (0.06 %) nasal spray Pep 2 sprays 3 times a day by [...] Status Former Smoker Maegan Chavez LPN null, [facility] 02/06/2012 14:55:41 Do You Have An Advance [...] not available 01/25/2015 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 Information not available 12/29/2017 How [...] virus, quadrivalent, PF 4 completed Not Available [facility] 09/17/2019 02:18:56 Influenza, split virus, trivalent, PF 4 completed Not Available [facility] 09/17/2019 02:31:43 zoster live 4 completed Not Available [facility] 09/17/2019 02:16:36 Tdap 5 completed Not Available [facility] 09/17/2019 02:19:26 Influenza, split virus, quadrivalent, PF 5 completed Not Available [facility] 09/17/2019 02:25:39 Td(adult) unspecified formulation 4 completed Lore tabares [facility] 11/05/2012 11:05:45 Influenza, high-dose, trivalent, PF 6 completed Not Available [facility] 09/17/2019 02:21:05 Influenza, high-dose, trivalent, PF 8 completed Not Available [facility] 09/17/2019 02:35:35 Influenza, high-dose, trivalent, PF 9 completed Not Available [facility] 09/17/2019 02:25:35 Past Encounters Encounter ID Performer Location Encounter Start Date Encounter Closed Date Diagnosis/Indication Diagnosis SNOMED-CT Code Diagnosis ICD10 Code Diagnosis Note [id number] Suresh adames [address] [address] 02/06/2012 14:37:13 02/09/2012 08:16:56 [id number] Suresh adames [address] [address] 03/08/2012 15:44:48 03/08/2012 16:12:52 [id number] Suresh adames [address] [address] 08/09/2012 07:58:37 08/16/2012 08:50:53 [id number] [facility], OFFICE [address] [place] [address] 11/04/2012 11:15:14 11/04/2012 13:42:01 [id number] Vida ROY [facility], OFFICE [address] [place] [address] 11/18/2012 16:14:15 11/19/2012 07:57:17 [id number] Glenis Slade PA-C , [facility], OFFICE [address] [place] [address] 11/30/2012 14:08:06 12/01/2012 07:49:12 [id number] [facility], [address] [address] 12/01/2012 09:56:09 12/02/2012 09:24:43 [id number] [facility], [facility] [address] [place] [address] 12/13/2012 09:52:08 12/14/2012 07:42:08 [id number] Michelle Jett , [facility], OFFICE [address] [place] [address] 12/17/2012 08:28:56 12/17/2012 09:27:12 Screening mammography [id number] Nuha Iniguez MA , [facility], OFFICE [address] [place] [address] 02/03/2013 09:46:53 02/03/2013 10:54:35 [id number] Glenis Slade PA-C , [facility], OFFICE [address] [place] [address], [place] [address] 02/17/2013 08:57:54 02/17/2013 09:34:44 [id number] Yun Sullivan , [facility], OFFICE [address] [place] [address] 03/10/2013 07:07:22 03/10/2013 07:45:07 [id number] Lesli Leigh MD , [facility], OFFICE [address] [place] [address] 04/15/2013 07:18:02 04/15/2013 07:42:12 Benign essential hypertension 7329065 Well controlled today with good rate control as well. She is back on Metoprolol alternatin g 1 tab 1/2 tab qod. Diltiazem >> dizziness, [place] >> good pressure control but no rate control. Will stay with this for now. F/U prn. Raynaud's disease 339953962 Now has 3 cold fingers. Recommend trial of acupunctur e - she has seen Lana Fairbanks in the past and likes her very much. Agrees to try. Will f/u with outcome and I will continue to investigat e other possible causes. Dizziness 006164581 Cont inues. Meclizine continues to help. Try acupunctur e. If to no avail, may consider imaging as this has continued for quite awhile - ?sinuses, ?neck. [id number] [facility], [address] [place] [address] 05/23/2013 09:24:44 05/26/2013 09:02:53 Benign paroxysmal positional vertigo 853446874 [id number] Idalia [facility], [address] [place] [address] 05/30/2013 14:59:03 06/01/2013 14:06:23 Benign paroxysmal positional vertigo 225749928 [id number] Idalia [facility], [address], [place] [address] 06/02/2013 07:50:52 06/03/2013 08:12:15 Benign paroxysmal positional vertigo 668093556 [id number] Idalia Schumacherzniak Physical [facility], [address], [place] [address] 06/08/2013 10:00:19 06/09/2013 08:19:39 Benign paroxysmal positional vertigo 997306147 [id number] [facility], [address] [place] [address] 08/19/2013 10:39:26 08/22/2013 10:10:10 Raynaud's disease 803553880 This patient has developed Raynaud's over the [...] in 6 months. Limited sy stemic sclerosis 887252207 At this point incomplet e CREST syndrome . [id number] [place] Limon, [facility], OFFICE [address] [facility] [place] [address] 09/15/2013 09:05:33 09/15/2013 09:56:59 Benign paroxysmal positional vertigo 145781377 Ongoing. Will see Beatrice Woods for eval and treatment. Continue to use meclizine as directed. Stay hydrated. Carpal [place] jason syndrome 27230716 Exam consistent with mild-moder ate carpal tunnel. Reviewed conservati ve vs aggressive treatment - injections , surgery. Will start with braces at nighttime and using ice bid. She can also use NSAIDS prn. Call or RTO if sxs persist/wo rsen. Nasal congestion 54881411 Allergies vs chronic sinusitis? Start Flonase. Continue nasal saline, claritin. [id number] [place] Limon, [facility], OFFICE [address] [facility] [place] [address] 10/27/2013 10:03:07 10/27/2013 11:03:06 Influenza vaccine needed 9647072131 106 Paronychia 90482782 Xray to r/o continued presence of foreign body. Start cephalexin as directed. Advised warm soaks with Epsom salt at least bid-tid. RTO if sxs persist/wo rsen. [id number] C[facility], [address] [place] [address] 12/19/2013 15:24:50 12/19/2013 16:11:32 Benign paroxysmal positional vertigo 839175064 [id number] Che [facility], [address] [place] [address] 12/21/2013 17:13:35 12/22/2013 08:19:10 Benign paroxysmal positional vertigo 831989226 [id number] Che [facility], [address] [place] [address] 12/27/2013 14:54:41 12/28/2013 16:20:22 Benign paroxysmal positional vertigo 217565425 [id number] Kylah Mehul [facility], OFFICE [address] [facility] [place] [address] 01/02/2014 08:21:00 01/02/2014 09:17:37 Adult health examination 125351866 pap done today, mammogram due 2014, colonoscop y due now, tdap and zostavax given today. Pt counselled on diet, exercise, appropriat e calcium intake, and stress management . see Risk Assessment and Lifestyle Change Counseling section above Screening for malignant neoplasm of colon 214174330 Varicella vaccination 49106401 Administra tion of diphtheria, pertussis, and tetanus vaccine 445293651 Screening for malignant neoplasm of cervix 563881499 Benign ess ential hypertension 8258736 Well controlled , below goal of under 140/90. Can cut back metoprolol to every other day. Continue to monitor BP at home, may be able to d/c completely . Hypothyroidism 69260617 Due for labs. She is feeling some palpitatio ns, so may be over compensate d. Will check labs and f/u with results. If palpitatio ns continue, consider holter monitor. [id number] [facility], [address] [place] [address] 07/03/2014 13:01:38 07/04/2014 19:55:43 Hip pain 26324675 [id number] [facility] [address] [facility] [address] 07/04/2014 07:58:34 07/04/2014 08:30:29 Influenza vaccine needed 8612817972 106 Varicella vaccination 41285043 Benign ess ential hypertension 0093582 Well controlled , at goal of <140/90. Continue medication s as directed. Excellent work with diet & exercise. Hypothyroidism 08973720 Due for labs. She is feeling some palpitatio ns, so may be over compensate d. Will check labs and f/u with results. If palpitatio ns continue, consider holter monitor. [id number] Che [facility], [address] [place] [address] 07/06/2014 08:31:30 07/07/2014 12:32:29 Hip pain 86975741 [id number] Che [facility], [address] [place] [address] 07/13/2014 15:06:16 07/13/2014 16:21:42 Hip pain 69125362 [id number] Che [facility], [address] [place] [address] 07/20/2014 09:27:05 07/21/2014 08:20:11 Hip pain 43137650 [id number] Ofelia Lopes LPN , [facility], OFFICE [address] [place] [address] [place] [address] 08/22/2014 13:55:53 08/22/2014 14:19:51 Onychia 307831240 Keep clean and dry. Wound care instructio ns reviewed. Continue to soak with Epsom salt and warm water. Will f/u with culture results. [id number] Yun Sullivan [facility], OFFICE [address] [place] [address] 09/11/2014 14:07:15 09/11/2014 14:56:24 Paronychia of finger 558311304 rt 4th finger./ mild recurrent / grew citrobacte r last time/ will try Bactrim/ has chronic component all nails? refer dermatolog y [id number] Kylah [facility], OFFICE [address] [place] [address] 01/25/2015 13:19:27 01/25/2015 14:20:09 Screening for malignant neoplasm of colon 538982775 Screening mammography 59662134 Adult heal th examination 775314953 see Risk Assessment and Lifestyle Change Counseling section above Administra tion of diphtheria, pertussis, and tetanus vaccine 003304012 [id number] Yun ROY, [facility], OFFICE [address] [place] [address] 04/17/2015 08:54:07 04/17/2015 09:21:59 Lifestyle 837728423 Sciatica 72387159 [id number] Jyothi Cloud, PT Physical Therapy, [address] [place] [address] 04/18/2015 10:08:11 04/18/2015 16:11:08 Hip pain 46718602 Sciatica 19065499 Inflammati on of sacroiliac joint 67276818 [id number] Jyothi Cloud, PT Physical Therapy, [address] [place] [address] 04/25/2015 08:36:09 04/26/2015 08:47:50 Hip pain 99222218 Sciatica 59925533 Inflammati on of sacroiliac joint 96978484 [id number] Yun Sullivan , [facility], OFFICE [address] [place] [address] [place] [address] 05/16/2015 14:21:12 05/16/2015 15:02:05 Influenza vaccine needed 8279263911 106 Onychomycosis 751146579 Noted Id reaction, I suspect a fungal infection. Reviewed soaking with Epsom salts, and keeping skin clean & dry. Use of clotrimazo le and oral fluconazol e reviewed. Discussed risks, benefits, side effects, and limitation s of medication . Lifestyle 972412537 [id number] Peace Ruano NP , [facility], OFFICE [address] [place] [address] [place] [address] 06/07/2015 14:19:45 06/07/2015 14:52:54 Onychomycosis 136369083 B35.1 Continued Id reaction, I suspect an ongoing fungal infection. Reviewed soaking with Epsom salts, and keeping skin clean & dry. Use of clotrimazo le and oral terbinafin e reviewed. Discussed risks, benefits, side effects, and limitation s of medication . Consulted with BWW on case. [id number] Che Woods Physical [facility], [address] [place] [address] 06/21/2015 07:50:12 06/21/2015 10:45:22 Benign paroxysmal positional vertigo 148539002 H81.13 [id number] Che Woods Physical [facility], [address] [place] [address] 06/25/2015 12:54:48 06/25/2015 18:04:06 Benign paroxysmal positional vertigo 347538313 H81.13 [id number] RICO Quinones, [facility], OFFICE [address] [facility] [address] 07/05/2015 14:11:01 07/05/2015 15:37:21 Benign essential hypertension 1448892 I10 Well controlled , at goal of <140/90. Encouraged increased activity, weight loss, heart healthy diet. continue medication s as directed. Raynaud's disease 330029 006 I73.00 Very likely part of a CREST-like picture. Has f/u with Dr. Leigh tomorrow. [id number] Vida Llernst [facility], [facility] [address] [facility] [address] 07/06/2015 08:41:00 07/16/2015 07:48:13 Raynaud's disease 522749044 I73.00 Basically stable pattern of Raynaud's, but [...] dressing warm etc. Limited sy stemic sclerosis 466303094 M34.9 Limited scleroderm a with features that [...] to monitor for pulmonary hypertensi on. Paronychia 91235771 L03. 206 [id number] Lesli Leigh MD [facility], [address] [place] [address] 09/07/2015 08:44:36 09/07/2015 12:07:26 Limited systemic sclerosis 464351032 M34.9 Limited scleroderm a with features that include Raynaud's, mild sclerodact yly, telangiect shayan, symptoms of mild esophageal dysmotilit y. She has a high titer anticentro mere antibody. Had normal echocardio gram (the ecchocardi ogram report suggested R heart catheteriz ation, but this is not clinically indicated) . Routine f/u 6 mo. Finger ulcer 431975403 L 98.499 Distal digital ulceration R middle [...] if any worsening Raynaud's. Raynaud's phenomenon 266 818357 I73.00 [id number] Che [facility], [address] [place] [address] 10/02/2015 09:31:48 10/03/2015 23:23:19 Benign paroxysmal positional vertigo 738262463 H81.13 [id number] [place] Bender, [facility], OFFICE [address] [facility] [place] [address] 03/28/2016 10:30:17 03/28/2016 11:39:24 Acute upper respiratory infection 72413470 J06.9 Educated patient that URI is a [...] resolve in 2-4 weeks. Coxsackie virus disease 050336879 B34.1 Viral infection, very likely hand foot and mouth disease. Reviewed supportive care and return precaution s. [id number] Belkis Tabares MD , [facility], OFFICE [address] [place] [address] 03/29/2016 09:56:21 03/29/2016 10:42:35 Spasm of back muscles 441162316 M62.830 We reviewed the basic pathophysi ology [...] motrin 600 mg three times a day [id number] Enrique Zaman, PT Physical Therapy, [address] [place] [address] 03/31/2016 13:37:00 04/01/2016 08:39:49 Low back pain 830556711 M54.5 Sacroiliac joint pain 20 2461605 M53.3 [id number] Jeanine ROY, [facility], OFFICE [address] [place] [address] 04/07/2016 11:48:34 04/07/2016 13:29:[address] was negative in Trthe ED, but pt has continued sinus congestion , sore throat, PND. Empiric tx with abx as nothing else is working. Reviewed medication risks, benefits, side effects, and limitation s. Anti-nucle ar factor detected 680947758 R76.8 Grossly positive CLIFF drawn in 07/2015. Now in the context of elevated ESR, ? positive blood culture, and pharyngiti s. Will check back with rheumatolo gy for further eval and rx. [id number] Lesli Leigh MD Rheumatol rosangela, [facility] [address] [place] [address] 04/16/2016 08:55:37 04/16/2016 09:34:02 Limited systemic sclerosis 301013588 M34.9 Limited scleroderm a with features that [...] be followed. Routine f/u 6 mo. Pneumonitis 578827497 J1 2.9 Recent small RML consolidat ion on CXR. Repeat in about 2 weeks. Raynaud's phenomenon 266 878070 I73.00 Continue Amlodipine . Used some NTG ointment las winter. Primary fi bromyalgia syndrome 68859402 M79.7 The patient has some fairly mild diffuse musculoske letal pains associated with a prominent sleep disruption . At the moment she is not bothered much, has fair energy and feels well.Encou raged regular exercise, return for this as needed.. [id number] RICO Quinones, [facility], OFFICE [address] [place] [address] 06/17/2016 08:15:19 06/17/2016 09:12:56 Adult health examination 930436470 Z00.00 see Risk Assessment and Lifestyle Change Counseling section above Counseling 686109298 Z71 .9 Encouraged increased activity and joining a gym, pt agreeable and plans to join a gym, will continue to eat a low fat and vegan diet, also encouraged mediterran marion diet Active or passive immunization 029604997 Z23 Subconjunc tival hemorrhage 59393227 H11.31 Asymptomat ic, instructed if unresolved in 10 days to F/U Benign ess ential hypertension 3177806 I10 BP at goal, [facility] [id number] [facility], [address] [place] [address] 07/14/2016 15:50:36 07/15/2016 08:06:45 Benign paroxysmal positional vertigo 905413258 H81.13 [id number] [facility], [address] [address] 07/31/2016 11:14:06 08/04/2016 07:42:56 Benign paroxysmal positional vertigo 414324800 H81.13 [id number] [facility], [address] [address] 08/06/2016 16:20:02 08/07/2016 10:57:56 Benign paroxysmal positional vertigo 026513665 H81.13 [id number] [facility], [address] [address] 08/21/2016 07:51:48 08/21/2016 16:07:07 Benign paroxysmal positional vertigo 064207490 H81.13 [id number] Che Woods Physical [facility], [address] [address] 09/15/2016 09:22:57 09/15/2016 15:40:37 Benign paroxysmal positional vertigo 903865072 H81.13 [id number] Enrique Jones MD , [facility], OFFICE [address] [place] [address] 09/18/2016 08:45:46 09/18/2016 09:28:05 Palpitations 17230074 R00.2 continue to avoid caffeine, sudafed, holter in past unrevealin g, followup as needed. Discussed exercise. Obesity 882958394 E66.9 retiring next week, discussed Y program [id number] Jyothi Cloud, PT Physical Therapy, [address] [address] 11/26/2016 10:06:14 11/27/2016 08:07:38 Low back pain 083045859 M54.5 Sacroiliac joint pain 20 1465420 M53.3 [id number] Ambrocio Baugh MD Sports Medicine, [address] [address] 12/04/2016 13:20:22 12/05/2016 09:20:39 Hip pain 76753887 M25.551 M25.552 Rajani is a 66-year-ol d [...] a trochanter ic bursa corticoste roid injection. 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 Continue. Will f/u with rheumatolo gy as directed. Benign ess ential hypertension 2481620 I10 BP at goal of <140/90. Continue diet, exercise, medication s. [id number] Jyothi Cloud, PT Physical Therapy, [address] [place] [address] 12/26/2016 12:57:05 12/26/2016 14:20:48 Low back pain 165565787 M54.5 Sacroiliac joint pain 20 6888970 M53.3 [id number] Jyothi Cloud, PT Physical Therapy, [address] [place] [address] 12/26/2016 14:53:31 12/26/2016 14:53:47 [id number] Belkis Tabares MD , [facility], OFFICE [address] [place] [address], [place] [address] 01/13/2017 13:02:05 01/13/2017 16:52:17 Acute allergic serous otitis media 47693390 H65.119 Tincture of time - acute serous [...] helpful. RTC if pain or fevers develop. [id number] TIMMY Narayanan , [facility], OFFICE [address] [place] [address], [place] [address] 05/06/2017 15:02:11 05/06/2017 15:30:13 Hypothyroidism 23269255 E03.9 Pt very fatigued latelyLast TSH 4.79 in 2015Taking levothyrox ine 75 mcgWill check TSH today and follow up with result and plan of care as needed Benign ess ential hypertension 3906818 I10 Well-contr olled on HCTZ and amlodipine , but with potential side effects of amlodipine , including dizziness and bilateral foot edemaWill trial amlodipine 2.5 mg daily, and she will return to Dr Leigh to discuss repeat echo and changing medication for rate control [id number] Lesli Leigh MD Rheumatol ogy, [address] [place] [address] 05/25/2017 13:32:18 05/25/2017 16:45:06 Limited systemic sclerosis 316357776 M34.9 Limited scleroderm a with features that include Raynaud's, mild sclerodact yly, telangiect shayan, symptoms of mild esophageal dysmotilit y. She has a high titer anticentro mere antibody. Had normal echocardio gram. No change in any symptoms. Did have digital ulceration last October, slowly healed. Will update labs. Routine f/u 6 mo. Tachycardia 8946256 R00. 0 Actually upper normal HR, generally [...] when weather gets cooler. Raynaud's phenomenon 266 912440 I73.00 See above. Digital ulcer last October. Resume amlodipine in cooler weather. Used some NTG ointment last winter. Continue careful attention to keeping adequately warm. Bursitis of shoulder 239 913885 M75.51 Rotator cuff tendinitis / bursitis R shoulder.R efer for PT. [id number] [facility], [address] [address] 07/21/2017 08:51:26 07/21/2017 20:28:31 Shoulder pain 65372773 M25.511 M25.512 Dizziness 386900283 R42 [id number] Lesli Leigh MD Rheumatol bertha, [address] [address] 07/31/2017 09:54:36 07/31/2017 11:14:12 Limited systemic sclerosis 508603674 M34.9 Limited scleroderm a with features that [...] f/u 6 mo. Paronychia of finger 444 454441 L03.019 L 4th finger. The finger itself is well perfused at present, though he has significan t Raynaud's at times and has had digital ulceration in past.Discu ssed treatment paronychia . Soak, Keflex.Als o try Nitro-bid ointment for this one finger to help ensure good perfusion. Raynaud's phenomenon 266 422246 I73.00 See above. Digital ulcer last October. Now paronychia l infection. Continue careful attention to keeping adequately warm. Continue amlodipine . [id number] [facility] Physical [facility], [address] [place] [address] 08/03/2017 11:25:35 08/03/2017 12:22:14 Shoulder pain 37460079 M25.511 M25.512 Dizziness 857628052 R42 [id number] Che Woods [facility], [address] [place] [address] 08/06/2017 11:19:10 08/07/2017 09:54:28 Shoulder pain 84497390 M25.511 M25.512 Dizziness 371622530 R42 [id number] Che [facility] Physical [facility], [address] [place] [address] 08/25/2017 12:22:51 08/25/2017 12:58:39 Shoulder pain 03548906 M25.511 M25.512 Dizziness 668289414 R42 [id number] Che Wo[facility] Physical [facility], [address] [place] [address] 11/11/2017 12:23:27 11/12/2017 16:37:09 Benign paroxysmal positional vertigo 360906154 H81.12 [id number] Peace Ruano NP , [facility], OFFICE [address] [place], [place] [address] [address] 11/12/2017 14:08:00 11/12/2017 16:23:31 Dizziness 527483401 R42 Has appt with PT as well. Screening mammography 24 570411 Z12.31 Acute sinusitis 84200977 J01.90 Pt presents today for evaluation of [...] time. Screening for malignant neoplasm of colon 297095883 Z12.11 [id number] [facility], [address] [address] 11/12/2017 14:34:59 11/12/2017 16:34:28 Benign paroxysmal positional vertigo 222309718 H81.12 [id number] [facility], [address] [address] 11/17/2017 09:22:32 11/17/2017 12:14:15 Benign paroxysmal positional vertigo 829481500 H81.12 [id number] Che [facility] Physical [facility], [address] [address] 12/02/2017 11:22:19 12/02/2017 13:39:38 Benign paroxysmal positional vertigo 396860452 H81.12 [id number] Che [facility], [address] [address] 12/22/2017 12:26:25 12/22/2017 19:48:05 Benign paroxysmal positional vertigo 561166991 H81.12 [id number] TIMMY Macias , [facility], OFFICE [address] [place] [address] 12/23/2017 10:12:02 12/23/2017 12:20:02 Benign paroxysmal positional vertigo 247527833 H81.13 Hx. of BPPV, likely exacerbate d by recent URI and plane ride. Neuro exam unremarkab le with no red flag symptoms. Already seeing PT for vestibular exams. Has Meclizine. Start Flonase. Advised on home Gin maneuver. Slow position changes. Reviewed ER/return precaution s. [id number] [facility], [address] [place] [address] 12/23/2017 12:52:51 12/23/2017 13:50:58 Benign paroxysmal positional vertigo 791001796 H81.12 [id number] [facility], [address] [place] [address] 12/24/2017 11:19:03 12/27/2017 21:15:10 Benign paroxysmal positional vertigo 583331649 H81.12 [id number] Richa Johnston , TIMMY FP, [facility], OFFICE [address] [facility] [place] [address] 1 12/29/2017 13:16:02 12/29/2017 14:17:05 Adult health examination 983160180 Z00.00 see Risk Assessment and Lifestyle Change Counseling section aboveLabs reviewed Counseling 406115105 Z71 .9 Depression screening 171 946918 Z13.89 depression screening tool administer ed, entered into emr, scored and discussed, time greater than 7.5 minutes Benign ess ential hypertension 4685698 I10 Blood pressure at goal, Continue meds. HR is elevated, chronic per patient. Will continue to monitor and call if ongoing elevation. States that when she exercises it usually will come down overall. Previously on low dose beta adair but does not wish to start again today. Screening for malignant neoplasm of colon 433926320 Z12.11 Reviewed that the gold standard of colorectal cancer screening is a colonoscop y. Patient is not interested in this at this time and would like to do IFOB cards. Discussed that positive test result should then warrant colonoscop y. Also informed patient of importance of annual screening with IFOB cards. Patient verbalizes understand ing to this plan. Acute sinusitis 86704023 J01.90 Pt presents today for evaluation of [...] or worsen at any time. Hypercholesterolemia 136 34812 E78.00 Lipid levels slightly. ASCVD risk of 9.6%. Patient opting to make lifestyle modificati ons and recheck in 6 months over meds. Screening mammography 24 072309 Z12.31 Due to have mammo. Dizziness 067062664 R42 Still suspect BPPV ? if exacerbate d by acute sinusitis. Trial abx, continue PT, follow up later this week. [id number] [facility], [address] [place] [address] 12/29/2017 14:16:43 12/30/2017 07:59:55 Benign paroxysmal positional vertigo 054383437 H81.12 [id number] [facility], [address] [place] [address] 12/31/2017 13:23:45 12/31/2017 14:07:25 Benign paroxysmal positional vertigo 101262314 H81.12 [id number] [facility], [address] [place] [address] 03/10/2018 13:59:23 03/11/2018 12:12:38 Shoulder pain 18856735 M25.657 [id number] [facility], [address] [place] [address] 03/22/2018 15:52:29 03/22/2018 16:36:57 Shoulder pain 64173908 M25.046 [id number] Joanna Thurman, PT Physical Therapy, [address] [place] [address] 07/12/2018 16:22:54 07/13/2018 09:48:57 Benign paroxysmal positional vertigo 867926730 H81.11 [id number] Joanna Thurman, PT Physical Therapy, [address] [place] [address] 07/14/2018 12:05:50 07/14/2018 14:01:38 Benign paroxysmal positional vertigo 837789690 H81.11 [id number] RICO Quinones, [facility], OFFICE [address] [place] [address] 07/15/2018 13:01:26 07/15/2018 13:43:13 Benign essential hypertension 6685120 I10 Blood pressure well below goal. Could likely taper off HCTZ, but she finds that this flares up her BPPV. Continue low dose HCTZ, reviewed diet, exercise, hydration, and weight loss. Active or passive immunization 798300824 Z23 Benign par oxysmal positional vertigo 455896117 H81.10 Ongoing. Will see Beatrice Woods for eval and treatment. Continue to use meclizine as directed. Stay hydrated. Suggested acupunctur e for treatment. [id number] [facility], [address] [address] 08/17/2018 11:19:11 08/17/2018 21:10:32 Benign paroxysmal positional vertigo 738512892 H81.12 [id number] [facility], [address] [address] 08/19/2018 08:53:11 08/20/2018 21:43:05 Benign paroxysmal positional vertigo 188346250 H81.12 [id number] Che [facility], [address] [address] 08/26/2018 09:53:12 08/26/2018 16:32:41 Benign paroxysmal positional vertigo 286167221 H81.12 [id number] RICO Quinones, [facility], OFFICE [address] [place] [address] 11/08/2018 07:28:42 11/08/2018 07:50:11 Onychomycosis 130373289 B35.1 I suspect an ongoing fungal infection. Reviewed soaking with Epsom salts, and keeping skin clean & dry. Use of clotrimazo le and oral terbinafin e reviewed. Discussed risks, benefits, side effects, and limitation s of medication . She opted to not use rx medication at this time, will f/u if sxs persist/wo rsen [id number] Joanna Thurman, PT Physical Therapy, [address], [place] [address] 11/25/2018 10:47:08 11/26/2018 08:18:11 Benign paroxysmal positional vertigo 912743519 H81.12 [id number] Joanna Thurman, PT Physical Therapy, [address] [place], [place] [address] 11/26/2018 09:26:09 11/26/2018 10:25:05 Benign paroxysmal positional vertigo 861701820 H81.12 [id number] Caprice Bonner D.O. , [facility], OFFICE [address] [facility] [place], [place] [address] 12/09/2018 10:44:38 12/09/2018 11:19:40 Ingrowing toenail 642487400 L60.0 discussed continue warm soaks until she can see podiatry. Onychomycosis 022645346 B35.1 Pre-surger y evaluation 145861439 Z01.818 low risk for low risk surgery. forms completed and faxed to [facility] . Cataract of left eye 748 1057986 7164635 H26.9 low risk for low risk surgery. forms completed and faxed to [facility] . [id number] Georgina Joshi DPM Podiatry, [address] [place] [address] 12/23/2018 07:44:49 12/23/2018 10:17:20 Ingrowing toenail 328470961 L60.0 right great toe ingrown toenail lateral [...] pain medication prn pain. Pain in toe 833240379 M7 9.148 [id number] Peace Ruano NP , [facility], OFFICE [address] [place] [address] jo, [place] [address] 12/31/2018 09:26:21 12/31/2018 10:18:19 Adult health examination 147324089 Z00.00 see Risk Assessment and Lifestyle Change Counseling section above Counseling 245978471 Z71 .9 Encouraged increased activity and joining a gym, pt agreeable and plans to join a gym, will continue to eat a low fat and vegan diet, also encouraged mediterran marion diet Depression screening 171 575604 Z13.89 depression screening tool administer ed, entered into emr, scored and discussed, time greater than 7.5 minutes Benign ess ential hypertension 1414488 I10 Blood pressure at goal. She feels better with better control and decreased pulse. OK to restart beta adair, continue HCTZ. RTO for recheck in 3 months. [id number] Georgina Joshi DPM Podiatry, [address] [place] [address] 01/05/2019 13:09:59 01/06/2019 13:32:18 Ingrowing toenail 098722887 L60.0 right great toe healing. We await bx results. Pt instructed to soak for another week. Ok to leave toe open to air. RTC prn. I spent 15 mins face to face with patient, more 50% spent in counseling and coordinati on of care. Pain in toe 819314386 M7 9.495 [id number] Kitty Osorio RN , [facility], OFFICE [address] [place] [address] 02/01/2019 14:24:10 02/01/2019 14:45:25 Benign essential hypertension 4387853 I10 Blood pressure at goal. She feels better with better control and decreased pulse. OK to restart beta adair, continue HCTZ. RTO for recheck in 3 months. [id number] Peace Ruano NP FP, [facility], OFFICE [address] [place] [address] 03/01/2019 08:32:48 03/01/2019 09:09:54 Palpitations 92347450 R00.2 EKG revealed occ PAC's. Reviewed benign nature of this condition, monitoring for sxs worsening, and avoiding things like caffeine & etoh. Benign ess ential hypertension 1499784 I10 Blood pressure at goal. She feels better with better control and decreased pulse. OK to restart beta adair, continue HCTZ. [id number] Peace Ruano NP , [facility], OFFICE [address] [place] [address] 04/04/2019 08:47:16 04/05/2019 15:13:04 Benign essential hypertension 6285446 I10 Tolerating meds well. BP at goal of <130/90. Continue meds as directed. Schedule PHA and BP check in December 2019. [id number] Michelle Luevano LPN , [facility], OFFICE [address] [place] [address], [place] [address] 07/07/2019 06:59:44 07/08/2019 06:48:53 Active or passive immunization 917184777 Z23 [id number] Joanna Thurman PT Physical Therapy, [address] [place] [address] 03/18/2021 14:17:44 03/19/2021 09:00:32 Benign paroxysmal positional vertigo 094271037 H81.12 [id number] Joanna Thurman PT Physical Therapy, [address] [place] [address] 03/25/2021 08:51:43 03/25/2021 10:50:40 Benign paroxysmal positional vertigo 635472763 H81.12 [id number] Joanna Thurman PT Physical Therapy, [address] [place] [address] 03/26/2021 10:52:43 03/26/2021 11:48:09 Benign paroxysmal positional vertigo 441170810 H81.12 [id number] Joanna Thurman PT Physical Therapy, [address] [place] [address] 03/28/2021 09:24:44 03/28/2021 10:20:20 Benign paroxysmal positional vertigo 819971568 H81.12 [id number] Joanna Thurman PT Physical Therapy, [address] [place] [address] 04/12/2021 08:24:37 04/12/2021 09:25:30 Benign paroxysmal positional vertigo 026432155 H81.12 [id number] Joanna Thurman PT Physical Therapy, [address] [place] [address] 1 04/15/2021 14:53:19 04/15/2021 15:45:40 Benign paroxysmal positional vertigo 203226641 H81.12 [id number] Joanna Thurman, PT Physical Therapy, [address], [place] [address] 04/19/2021 08:27:31 04/19/2021 09:32:27 Benign paroxysmal positional vertigo 769638743 H81.12 [id number] Joanna Thurman, PT Physical Therapy, [address], [place] [address] 04/29/2021 09:53:42 04/29/2021 11:05:00 Benign paroxysmal positional vertigo 248645436 H81.12 [id number] Joanna Thurman, PT Physical Therapy, [address], [place] [address] 05/07/2021 07:45:05 05/08/2021 07:52:53 Benign paroxysmal positional vertigo 955011816 H81.12 [id number] Joanna Thurman, PT Physical Therapy, [address], [place] [address] 05/15/2021 10:50:25 05/15/2021 12:12:27 Benign paroxysmal positional vertigo 582127797 H81.12 [id number] Joanna Thurman, PT Physical Therapy, [address], [place] [address] 11/26/2021 08:24:40 11/26/2021 09:31:24 Benign paroxysmal positional vertigo 129697131 H81.13 [id number] Joanna Thurman, PT Physical Therapy, [address], [place] [address] 11/28/2021 11:26:26 11/28/2021 12:31:18 Benign paroxysmal positional vertigo 078992372 H81.13 [id number] Joanna Thurman, PT Physical Therapy, [address], [place] [address] 12/02/2021 10:24:19 12/02/2021 11:05:50 Benign paroxysmal positional vertigo 078715311 H81.13 [id number] Joanna Thurman, PT Physical Therapy, [address], [place] [address] 12/06/2021 09:23:36 12/06/2021 10:00:25 Benign paroxysmal positional vertigo 339332827 H81.13 [id number] Joanna Thurman, PT Physical Therapy, [address], [place] [address] 04/28/2022 11:21:21 04/28/2022 12:29:18 Benign paroxysmal positional vertigo 076477280 H81.13 [id number] Joanna Thurman, PT Physical Therapy, [address] [place] [address] 05/02/2022 09:55:35 05/02/2022 10:53:33 Benign paroxysmal positional vertigo 835210710 H81.13 [id number] Joanna Thurman, PT Physical Therapy, [address] [place] [address] 05/06/2022 11:42:39 05/07/2022 08:41:59 Benign paroxysmal positional vertigo 532269102 H81.13 [id number] Jyothi Cloud, PT Physical Therapy, [address] [place] [address] 04/03/2023 11:14:07 04/03/2023 15:28:29 Left-sided piriformis syndrome 4609280062 51608 M54.32 Trochanter ic bursitis of left hip 4297155323 91381 M70.62 Inflammati on of sacroiliac joint 10573642 M46.1 [id number] DAJA LIN, PT Physical Therapy, [address] [place] [address] 01/26/2024 10:47:07 01/26/2024 14:46:41 Benign paroxysmal positional vertigo 774919193 H81.11 [id number] DAJA LIN, PT Physical Therapy, [address] [place] [address] 1 01/28/2024 15:48:34 01/28/2024 17:01:06 Benign paroxysmal positional vertigo 514206621 H81.11 Health Concerns Section Related Observation LastModified by Organization Detai ls LastModified Time None Recorded Concern Status LastModified by Organization Details LastModified Time None Recorded Advance Directives Directive N: Discussed and gave form . ia Payers Encounter Date Sequence Insurance Name Policy Number Policy Arizmendi Covered Member ID Arizmendi Member ID Guarantor Name 05/02/[address] [facility] 1 (MEDICARE SUPPLEMENT) [id number] 01 Rajani S Mitchkoski [id number] Rajani Mitchkoski 05/02/2022 1 [place] [employer] Rajani S Mitchkoski [id number] Rajani Mitchkoski 05/06/2022 2 [facility] 1 (MEDICARE SUPPLEMENT) [id number] 01 Rajani S Mitchkoski [id number] Rajani Mitchkoski 05/06/2022 1 [place] [employer] Rajani S Mitchkoski [id number] Rajani Mitchkoski 04/03/[address] [facility] PL[facility] 1 (MEDICARE SUPPLEMENT) [id number] 01 Rajani S Mitchkoski [id number] Rajani Mitchkoski 04/03/2023 1 [place] [employer] Rajani S Mitchkoski [id number] Rajani Mitchkoski 01/26/[address] [facility] PL[facility] 1 (MEDICARE SUPPLEMENT) [id number] 01 Rajani S Mitchkoski [id number] Rajani Mitchkoski 01/26/2024 1 [place] [employer] Rajani S Mitchkoski [id number] Rajani Mitchkoski 01/28/[address] [facility] PL[facility] 1 (MEDICARE SUPPLEMENT) [id number] 01 Rajani S Mitchkoski [id number] Rajani Mitchkoski 01/28/2024 1 [place] [employer] Rajani S Mitchkoski [id number] Rajani Mitchkoski Notes Date Note Type Note Provider Name and Address Organization Details Recorded Time 05/02/2022 text/html Dolly statest th at she is feeling better. She reports that she has not been having dizziness when rolling in bed. Joanna Thurman, PT [address] [facility], [place], [address], [facility] 05/02/2022 10:25:34 05/06/2022 text/html Dolly states bety t she has been feeling pretty good. I have only felt it once a tiny bit when I was rolling in bed. Joanna Thurman, PT [address] [place], [phone], [facility] 05/07/2022 07:57:17 04/03/2023 text/html PT Initial Eval*Reported [...] by chiro/acupressure clinicians. Jyothi Cloud, PT [address] [place], [phone], [facility] 04/03/2023 15:06:53 01/26/2024 text/html Pt is a 73 f referred by PCP (Soto STINSON at [facility]) for vertigo. This episode onset a [...] or when sleeping. SHANTAL LIN, PT [address] [place], [phone], [facility] 01/26/2024 14:36:17 01/28/2024 text/html [place] great the first day, and generally speaking, [...] f referred by PCP (Soto STINSON at [facility]) for vertigo. This episode onset a [...] or when sleeping. SHANTAL LIN, PT [address] [facility], [place], [phone], [facility] 01/28/2024 16:25:36 OBGyn Episode No OBEpisode recorded.
--- OUTSIDE RECORDS SUMMARY | 2024-11-01 06:50 | XMS_ITS | Encounter Summary ---
Author Organization [employer] Address [address] [place] [address] Care Team Providers Care Remarketing Manager Name Role Phone Provider, Not In System Primary Care Provider Un available Encounter Details Date Type Department Care Team (Late st Contact Info) Description 01/01/2024 Telephone [facility] [address] [place] [address] Provider, Not In System Social [...] on filedocumented in this encounter Care Teams Remarketing Manager Relationship Specialty Start Date End Date Provider, Not In System PCP - General Family Medicine 06/19/23 documented as of this encounter
== END 2024-11-01 06:46 | disposition home or self-care (01) ==
LOC: CF 06:45
PROVIDERS: Visit Provider Anesthesiology
DX: M47.816 Spondylosis without myelopathy or radiculopathy, lumbar region (principal)
CPT/HCPCS: 64493; 64494; J2003; J2795; Q9967

== ENCOUNTER 2024-11-01 13:45 | Outpatient (AMB) | payer MEDICARE, OTHER, SELFPAY ==
[2024-11-01 14:08] VITALS: BP 119/68; PULSE 92; O2SAT 97
--- NOTE | 2024-11-01 14:08 | A.OFFVIS_ITS ---
Vital Signs 11/01/24 14:08 11/01/24 14:53 BP 119/68 135/66 Blood Pressure Location Rt brachial Rt brachial Position Sitting Sitting Pulse 92 99 Pulse Source Pulse Oximeter Pulse Oximeter Pulse Oximetry (%) 97 96 Oxygen Delivery Method Room Air Room Air Comment Pre-Op Post-Op Intake Visit Reasons: BILATERAL DIAGNOSTIC L3, L4, DRL5 MBB Allergies codeine Allergy (Severe, Verified 10/13/24 15:44) felt like going to propranolol Allergy (Intermediate, Verified 10/13/24 15:44) dizziness Seasonal Allergies Allergy (Intermediate, Verified 10/13/24 15:44) Sneezing, vertigo PFSH Medical History (Updated 10/10/24 @ 19:03 by Cristofer Bermudez MD) Adverse reaction to drug Restless leg syndrome Pacemaker Lower thoracic back pain Bifascicular block Supplemental oxygen dependent CREST (calcinosis, Raynaud's phenomenon, esophageal dysfunction, sclerodactyly, telangiectasia) Dyspnea on exertion Pericardial effusion Hypothyroid Enlarged thyroid Hypertension Multinodular thyroid Telangiectasia Dysphagia Surgical History S/P placement of cardiac pacemaker S/P cardiac cath S/P tooth extraction Hx of colonoscopy H/O breast biopsy Family History Father Heart disease Sister Ovarian cancer Brother Heart attack Stroke Mother Thyroid disease Brother Asthma Social History Household Members: Spouse Housing: House Do you presently have visiting nurse or other home services: Yes ([facility]NA ,PT) Alcohol intake: never Patient Tobacco Use Status: Former Tobacco user Tobacco use type: Cigarette Years Smoked: 20 +/- e-Cigarette/Vaping Use: Never Used Second Hand Smoke Exposure: Yes Advance Directives Date on File: 02/13/24 service: No Current occupational status: retired 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 Cognitive needs: No Hearing needs: No Vision needs: No Physical Exam Vital Signs: Last Vital Signs Pulse 99 11/01/24 14:53 BP 135/66 11/01/24 14:53 Pulse Ox 96 11/01/24 14:53 Oxygen Delivery Method Room Air 11/01/24 14:53 Assessment & Plan Assessment & Plan (1) Dorsalgia of cervicothoracic region: Code(s): M54.2 - Cervicalgia; M54.6 - Pain in thoracic spine Category: Medical (2) Spondylosis of lumbar region without myelopathy or radiculopathy: Code(s): M47.816 - Spondylosis without myelopathy or radiculopathy, lumbar region Category: Medical (3) CREST syndrome: Code(s): M34.1 - CR(E)ST syndrome Category: Medical (4) ILD (interstitial lung disease): Code(s): J84.9 - Interstitial pulmonary disease, unspecified Category: Medical (5) Lower thoracic back pain: Code(s): M54.6 - Pain in thoracic spine Category: Medical Plan Attempted medial branch block L3, L4, dorsal ramus L5 diagnostic. Patient came to the operating room. Informed consent was fully and carefully explained to the patient. She was positioned prone on operating table, her lower back and upper buttocks were prepped with ChloraPrep and draped with sterile utility towels. Time-out was performed delineating name and date of of the patient, side and site of the surgery, allergies of the patient. C-arm was brought over the operating field in image of the upper pelvis was demonstrated on the screen 1st. I was able to inject the confluence between the superior articular process of S1 on the right and what appears to be extra foramina on the left because of the partial sacralization of the left-sided L5, I also was able to inject on the left confluence of superior articular process of L5 and transverse process of L5 on the left and I was able to insert the needle and reach confluence of superior articular process of L4 and transverse process of L4 for this patient when the patient stated that she wants to stop the procedure I withdrew the needle the procedure was stopped. I will reschedule this patient for L2, L3, L4 bilateral medial branch block under sedation in the operating room. Coding Level of Care Code Procedure Only Diagnoses Dorsalgia of cervicothoracic region M54.2; M54.6 Spondylosis of lumbar region without myelopathy or radiculopathy M47.816 CREST syndrome M34.1 ILD (interstitial lung disease) J84.9 Lower thoracic back pain M54.6
[2024-11-01 14:53] VITALS: BP 135/66; PULSE 99; O2SAT 96
--- OUTSIDE RECORDS SUMMARY | 2024-11-01 17:23 | XMS_ITS | Encounter Summary ---
Author Organization [employer] Address [address] [facility] [address] [place] [address] Care Team Providers Care Grappler Name Role Phone Peace Ruano Primary Care Provider Unavailab le Peace Ruano Unavailable Unavailable Provider, Not In System Primary Care Provider Un available Encounter Details Date Type Department Care Team (Late st Contact Info) Description 07/22/[address] [id number] Peace Ruano FNP Social History Tobacco Use [...] on filedocumented in this encounter Care Teams Grappler Relationship Specialty Start Date End Date Peace Ruano FNP PCP - General Family Medicine 06/27/22 06/18/23 Provider, Not In System PCP - General Family Medicine 06/19/23 Peace Ruano FNP Family Medicine 06/27/22 06/18/23 documented as of this encounter
--- OUTSIDE RECORDS SUMMARY | 2024-11-01 17:23 | XMS_ITS | Clinical Summary ---
Author Organization [employer] Address [address] [facility] [address] [place] [address] Care Team Providers Care Roll Forming Machine Set Up Mechanic Name Role Phone Provider, Not In [...] Department Care Team Description 10/07/2024 Patient Outreach [address] [phone] Hiwot Smith LPN from Last [...] Lipid Panel, Standard (02/26/2023 3:32 PM EDT) [facility] Cholesterol, Total 124 (<200) MG/DL [facility] Triglyceride (mg/dL) in Serum/Plasma 116 (<150) MG/DL [facility] HDL Cholesterol 49 (>39) MG/DL [facility] LDL Cholesterol, Calculated 52 (0-130) MG/DL [facility] Non HDL Chol. (LDL+VLDL) 75 (<160) MG/DL [facility] Comment: Testing performed or reported by [facility], a Service of [facility], [address] [place] [id number] Leo Peres MD, [employer] Select[employer] [facility]# [id number] Blood Venous blood specimen / Unknown 02/26/2023 3:32 PM EDT 02/26/2023 3:35 PM EDT Peace ANTHONYP LAB BLOOD ORDERABLES Final Resul t [address] [address] * FECAL OCCULT BLOOD, IMMUNOCHEMICAL (11/21/2021 8:36 AM EDT) Fecal Occult Blood, Immunochemical (FIT) NEGATIVE [facility] 11/21/2021 8:36 AM EDT Historical Provider LAB BODY FLUIDS AND STOOL S ORDERABLES Final Result [facility] [address] * Fecal immunochemical (11/21/2021) Fecal Immunoassay Test (External) negative Stool Rectal contents / Unknown us Historical Provider LAB BODY FLUIDS AND STOOL S ORDERABLES Final Result from Last 3 Months or Most Recently Relevant to Health Maintenance Insurance MEDICARE [facility] , [address] [place] [address] * Guarantor: Rajani Hart Account Type Relation to Patient Date of Phone Billing Address Dental Self Care Teams Roll Forming Machine Set Up Mechanic Relationship Specialty Start Date End Date Provider, Not In System PCP - General Family Medicine 06/19/23
--- OUTSIDE RECORDS SUMMARY | 2024-11-01 17:23 | XMS_ITS | Continuity of Care Document ---
Author Organization [employer] Address [address] [place] [address] [address] [place], [place] Phone [phone] Care Team Providers Care Tax Associate Name Role Phone Dayan Barragan MD Care Team Information Rec eiver Unavailable Social History Type Date Description Comments Sex Unknown
--- OUTSIDE RECORDS SUMMARY | 2024-11-01 17:23 | XMS_ITS | Encounter Summary ---
Author Organization [employer] Address [address] [place] [address] Care Team Providers Care Crm Marketing Specialist Name Role Phone Provider, Not In System Primary Care Provider Un available Encounter Details Date Type Department Care Team (Late st Contact Info) Description 10/07/2024 Patient Outreach [facility] [address] [place] [address] Hiwot Smith LPN Social History Tobacco Use [...] on filedocumented in this encounter Care Teams Crm Marketing Specialist Relationship Specialty Start Date End Date Provider, Not In System PCP - General Family Medicine 06/19/23 documented as of this encounter
--- OUTSIDE RECORDS SUMMARY | 2024-11-01 17:23 | XMS_ITS | Encounter Summary ---
Author Organization [employer] Address [address] [place] [address] Care Team Providers Care Product Picker Name Role Phone Provider, Not In System Primary Care Provider Un available Encounter Details Date Type Department Care Team (Late st Contact Info) Description 01/01/2024 Telephone [facility] [address] [place] [address] Provider, Not In System Social [...] on filedocumented in this encounter Care Teams Product Picker Relationship Specialty Start Date End Date Provider, Not In System PCP - General Family Medicine 06/19/23 documented as of this encounter
== END 2024-11-01 14:51 | disposition home or self-care (01) ==
LOC: HO.PMCPRC 13:45
PROVIDERS: PCP Internal Medicine; Visit Provider Anesthesiology
DX: M47.816 Spondylosis without myelopathy or radiculopathy, lumbar region (principal); M54.2 Cervicalgia; M54.6 Pain in thoracic spine; M34.1 CR(E)ST syndrome; J84.9 Interstitial pulmonary disease, unspecified
CPT/HCPCS: 64493; 64494

== ENCOUNTER 2024-11-10 14:12 | Outpatient (AMB) | payer MEDICARE, OTHER, SELFPAY ==
--- NOTE | 2024-11-10 14:33 | A.OFFVIS_ITS ---
Intake Vital Signs 11/10/24 14:35 Height 5 ft 3 in Weight 179 lb 2 oz BMI 31.7 BP 130/86 Blood Pressure Location Lt brachial Position Sitting Pulse 93 Pulse Source Pulse Oximeter Temp 98 F Temp Source Temporal Artery Scan Pulse Oximetry (%) 93 Oxygen Delivery Method Room Air Intake Visit Reasons: AWV Intake Note: Patient is here for an Annual Wellness Visit. Plant Engineer Required: No Pediatric Psychiatrist: Pediatric Psychiatrist offered & declined Accompanied by: Self / Same As Patient Allergies codeine Allergy (Severe, Verified 11/10/24 15:40) felt like going to empagliflozin [From Jardiance] Allergy (Intermediate, Verified 11/10/24 15:40) Vomiting propranolol Allergy (Intermediate, Verified 11/10/24 15:40) dizziness Seasonal Allergies Allergy (Intermediate, Verified 11/10/24 15:40) Sneezing, vertigo PFSH Medical History (Updated 11/10/24 @ 15:48 by Pancho Monson MD) Adverse reaction to drug Restless leg syndrome Pacemaker Lower thoracic back pain Bifascicular block Supplemental oxygen dependent CREST (calcinosis, Raynaud's phenomenon, esophageal dysfunction, sclerodactyly, telangiectasia) Dyspnea on exertion Pericardial effusion Hypothyroid Enlarged thyroid Hypertension Multinodular thyroid Telangiectasia Dysphagia Surgical History S/P placement of cardiac pacemaker S/P cardiac cath S/P tooth extraction Hx of colonoscopy H/O breast biopsy Family History Father Heart disease Sister Ovarian cancer Brother Heart attack Stroke Mother Thyroid disease Brother Asthma Social History (Updated 11/10/24 @ 14:42 by LUCAS Mauro) Household Members: Spouse Housing: House Do you presently have visiting nurse or other home services: Yes ([facility]NA ,PT) Alcohol intake: never Patient Tobacco Use Status: Former Tobacco user Tobacco use type: Cigarette Years Smoked: 20 +/- e-Cigarette/Vaping Use: Never Used Second Hand Smoke Exposure: Yes Advance Directives Date on File: 02/13/24 service: No Current occupational status: retired 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 Cognitive needs: Yes (walker) Hearing needs: No Vision needs: Yes (Glasses) Questionnaire Medicare Wellness Checkup [age] What gender do you identify with?: female During the past 4 weeks, how much have you been bothered by emotional problems such as feeling anxious, depressed, irritable, sad or downhearted, and blue?: slightly During the past 4 weeks, has your physical & emotional health limited your social activities with family, friends, neighbors, or groups?: quite a bit During the past 4 weeks, how much bodily pain have you generally had?: severe pain During the past 4 weeks, was someone available to help you if you needed & wanted help?: yes, quite a bit During the past 4 weeks, what was the hardest physical activity you could do for at least 2 minutes?: very light Can you get to places out of walking distance without help? (For eg., can you travel alone on buses, taxis or drive your car?): Yes Can you go shopping for groceries or clothes without someone's help?: No Can you prepare your own meals?: Yes Can you do your housework without help?: No Because of any health problems, do you need the help of another person with your personal care needs such as eating, bathing, dressing or getting around the house?: No Can you handle your own money without help?: Yes During the past 4 weeks, how would you rate your health in general?: poor During the past 4 weeks how have things been going for you?: good & bad parts about equal Are you having difficulties driving your car?: no Do you always fasten your seat belt when you are in a car?: no During past 4 weeks, have you been bothered by the following: never: Sexual problems?, Trouble eating well?, Teeth or denture problems? and Problems using the telephone? and sometimes: Falling or dizzy when standing up and Tiredness or fatigue? Have you fallen 2 or more times in the past year?: No Are you afraid of falling?: No Are you a smoker?: no During the past 4 weeks, how many drinks of wine, beer, or other alcoholic beverages did you have?: no alcohol at all Do you exercise for about 20 minutes 3 or more times a week?: no, I usually do not exercise this much Have you been given information to help with the following?: no: Hazards in your house that might hurt you? and no: Keeping track of your medications? How often do you have trouble taking medicines the way you have been told to take them?: I always take medicine as prescribed How confident are you that you can control & manage most of your health problems?: not very confident What is your race?: White PHQ-9 Over the last 2 weeks, how often have you been bothered by any of the following problems? 1. Little interest or pleasure in doing things: not at all 2. Feeling down, depressed, or hopeless: several days 3. Trouble falling or staying asleep, or sleeping too much: not at all 4. Feeling tired or having little energy: several days 5. Poor appetite or overeating: not at all 6. Feeling bad about yourself - or that you are a failure or have let yourself or your family down: not at all 7. Trouble concentrating on things, such as reading the newspaper or watching television: not at all 8. Moving or speaking so slowly that other people could have noticed. Or the opposite - being so fidgety or restless that you have been moving around a lot more than usual: not at all 9. Thoughts that you would be better off or of hurting yourself in some way: not at all Total score: 2 Depression Screening Interpretation: Positive Depression Screening Done: Yes Source: Developed by Drs. Carson Quiles, Malinda Morales, Tang Awad and colleagues, with an educational kevin from [employer]. Thrive Questionnaire Date Thrive assessed: 09/15/24 DEANN-7 AMB Questionnaire DEANN-7 Date DEANN - 7 assessed: 09/15/24 Source: Developed by Drs. Carson Quiles, Tang Mantilla and colleagues, with an educational kevin from [employer]. Physical Exam Vital Signs: Last Vital Signs Temp 98 F 11/10/24 14:35 Pulse 93 11/10/24 14:35 BP 130/86 11/10/24 14:35 Pulse Ox 93 11/10/24 14:35 Oxygen Delivery Method Room Air 11/10/24 14:35 BMI result Body Mass Index 31.7 Balance: normal Romberg: negative Tandem Walk: able to Walk and Turn: able to Rise from sit to stand: able Hearing: Pass Whisper test: Assessment & Plan Assessment & Plan (1) Annual physical exam: Code(s): Z00.00 - Encounter for general adult medical examination without abnormal findings Plan: As above Medications: Discontinued tramadol Discontinued Reason: Doctor's Order 50 mg PO BID 30 days PRN 60 tabs 0RF pain Quality Reporting (2019) Depression/Bipolar (159/160/161/177) PHQ-9: Total score: 2 Coding Level of Care Code Medicare First (G0438) Diagnoses Annual physical exam Z00.00
[2024-11-10 14:35] VITALS: BP 130/86; PULSE 93; TEMP 36.6; O2SAT 93; BMI 31.7
--- OUTSIDE RECORDS SUMMARY | 2024-11-10 18:05 | XMS_ITS | Continuity of Care Document ---
Author Organization [facility] Address [address] [place] [address] [address] [place], [place] Phone [phone] Care Team Providers Care Creative/Art Director Name Role Phone Dayan Barragan MD Care Team Information Rec eiver Unavailable Social History Type Date Description Comments Sex Unknown
--- OUTSIDE RECORDS SUMMARY | 2024-11-10 18:05 | XMS_ITS | Continuity of Care Document ---
Author Organization [facility] Address [address] [place] [address]- Care Team Providers Care Tube Room Cashier Name Role Phone Don MARION, Hank Benoit Primary Care Physic hernando [place] [facility] [place] 11/09/24 [facility] [address] [place] [id number] Encounter Type: Triage Allergies, Adverse Reactions, Alerts Substance Criticality Severity Reaction Reaction Severity Status codeine Active propranolol Active Immunizations Given and Recorded Vaccine Date Status Refusal Reason [id number] 12y+ bivalent booster vax 09/08/22 Recorded influenza [...] Refills, Maintenance, 12/31/23 2:19:00 PM EDT, Tablet, [facility], Partial fill upon patient request if the prescription is for a schedule II opioid drug., 159, cm, 12/31/23 7:50:00 EDT, Height, 84.6, kg, 12/17/23 8:19:00 EDT,Dry Weight Start Date: 12/31/23 Status: Ordered Quantity: 30.0 Unit: tablet Repeat number: 3 azaTHIOprine 50 mg oral tablet 2 [id number] mg, By Mouth, Daily in AM, Refills [...] 1:16:00 PM EST, Route to Pharmacy Electronically, [facility] #[id number], Partial fill upon patient request if the [...] 1:16:00 PM EST, Route to Pharmacy Electronically, [id number], Partial fill upon patient request if the [...] 1:17:00 PM EST, Route to Pharmacy Electronically, [facility] #[id number], Partial fill upon patient request if the [...] Team Personnel Name: Lazara Cowan RN Position: [facility] RN Member Role: Primary Care Nurse Name: Jud Ochoa Position: [facility] RN Supv Member Role: Primary Care Nurse Name: Kris Leigh MD Position: [facility] Physician (General Medicine) Member Role: Lifetime Consulting Physician Address: [address] [place] [id number]- Telecom: Name: Oly Garcia RN Position: [facility] RN Member Role: Primary Care Nurse Name: Doyle Pacheco RN Position: [facility] RN Member Role: Primary Care Nurse Name: Monik Betancourt Position: [facility] Outreach Member Role: Lifetime Consulting Physician Name: Yoly Carr RN Position: [facility] RN Member Role: Primary Care Nurse Name: Sally Peres RN Position: [facility] ED RN W/OE and Tasks Member Role: Primary Care Nurse Name: Michel Olivera RN Position: [facility] RN Member Role: Primary Care Nurse Name: Jacqui Alcala RN Position: [facility] RN Member Role: Primary Care Nurse Name: Lavinia Nagy RN Position: [facility] RN Member Role: Primary Care Nurse Name: Hank Ochoa MD Position: Reference Physician Member Role: PCP Address: [address] [place] [address]- Telecom: Care Team Related Persons Name: GRACIELA FELIZ Insurance Providers Guarantor name[facility] Information [facility]: [facility] Payer: SELF PAY REVIEW PTRQ Member Number: NA Policy Number: NA Group Number: NA
--- OUTSIDE RECORDS SUMMARY | 2024-11-10 18:05 | XMS_ITS | Encounter Summary ---
Author Organization [employer] Address [address] [place] [address] Care Team Providers Care Carpentry Professional Name Role Phone Peace Ruano Primary Care Provider Unavailab le Peace Ruano Unavailable Unavailable Provider, Not In System Primary Care Provider Un available Encounter Details Date Type Department Care Team (Late st Contact Info) Description 07/22/[address] [id number] Peace Ruano FNP Social History Tobacco Use [...] on filedocumented in this encounter Care Teams Carpentry Professional Relationship Specialty Start Date End Date Peace Ruano FNP PCP - General Family Medicine 06/27/22 06/18/23 Provider, Not In System PCP - General Family Medicine 06/19/23 Peace Ruano FNP Family Medicine 06/27/22 06/18/23 documented as of this encounter
--- OUTSIDE RECORDS SUMMARY | 2024-11-10 18:05 | XMS_ITS | Data Portability ---
Author Organization [facility], , [facility] Address [address] [place] [address] Care Team Providers Care Coffee Farmer Name Role Phone JYOTHI CLOUD Phys. Med. & Rehab LESLI LEIGH Granulator Tender KEN MEEK Primary Care Provider Assessment Encounter Date Assessment Date Assessment LastModified [...] I with self-treatment of BPPV 4) Neg Perry-Hallpike B rbucala Not available 05/02/2022 10:25:19 05/06/2022 05/06/2022 Dolly is feeling much better and she has been able to roll in bed without symptoms. R sided BPPV has resolved and Deven-Hallpike is negative. She has slight symptoms when testing the L. These are less intense and at this time, pt feels that they are not limiting her function. Left side was treated today with LOCKSTITCH FRONT MAKER. Pt prefers to D/C despite positive findings on the L and will return if these symptoms should pose any restrictions in her function. D/C PT rbucala Not available 05/07/2022 07:57:01 04/03/2023 04/03/2023 IE 04/03/2309/09 Plan: 1 x/week up to 10 visits over 12 weeks Plan to use CPT codes: 71641 Therapeutic Exercise 51391 Neuromuscular ReEducation 15678 Manual 00119 Therapeutic Activity A: Dolly is a 72 [...] Treatments may include (as appropriate/as indicated): Therapeutic exercise(36680)/Ne uromuscular Reeducation (20190)/Manual Therapy (30393)/Therapeuti c Activities (38184)/Self-care management(72719)/ Attended Electrical Stimulation (79559)/PRN modalities/dry needling/Gait Training (59386)/canalith repositioning(9599 2) Not available 01/26/2024 14:35:58 01/28/2024 01/28/2024 Plan: [...] Treatments may include (as appropriate/as indicated): Therapeutic exercise(03968)/Ne uromuscular Reeducation (44021)/Manual Therapy (21174)/Therapeuti c Activities (69512)/Self-care management(08120)/ Attended Electrical Stimulation (95055)/PRN modalities/dry needling/Gait Training (93249)/canalith repositioning(9599 2) [email or web address] Not available 01/28/2024 16:25:25 Plan of Treatment Reminders Order Date Submit Date Provider Last Modified By Organization Details Last Modified Time Details Appointments New Xochilt t-30 025 08:30AM KEN MCCOY R, [place] Not available Not available Not available Lab None record ed. Referral None record [...] g Physic hernando: Mary Ann Oliver ms [facility] (Imaging) [address], [place], [address], 08/01/2022 10:24:55 Result Notes None recorded. Problems Name Problem SNOMED Code Status Onset Date Resolution Date Notes Provider Name and Address Organization Details Recorded Time Measuremen t finding outside reference range 727110078 Completed 07/20/2013 Not Available [facility] 3 02:03:25 Benign essential hypertensi on 7248669 Active Sonia tabares, [facility] 6 08:43:18 Multiple joint pain 63867232 Completed 07/20/2013 Not Available [facility] 3 02:02:27 Primary fibromyalg ia syndrome 04488276 Active Not Available [facility] 3 03:15:35 Posterior rhinorrhea 18456557 Completed 12/25/2016 Peace Ruano, [place] [address] [place] [address], [phone] , [facility] 7 13:02:33 Dizziness 801018178 Completed 07/20/2013 Not Available [facility] 3 02:02:09 Raynaud's disease 616417133 Completed 12/25/2016 Peace Ruano NP [address] [place] [address], [address] , [facility] 7 13:02:22 Limited systemic sclerosis 893955513 Active Lesli Leigh MD [address] [place] [address], [address] , [facility] 6 08:40:52 Paronychia 26853676 Completed 12/25/2016 Peace Ruano NP [address] [place] [address], [address] , [facility] 7 13:02:26 Finger ulcer 229359964 Completed 12/25/2016 Peace Ruano NP [address] [place] [address], [address] , [facility] 7 13:02:28 Raynaud's phenomenon 812000071 Active Lesli Leigh MD [address] [place] [address], [address] , [facility] 6 08:40:52 Benign paroxysmal positional vertigo 806265491 Active 2017 Peace Ruano NP [address] [place] [address], [address] , [facility] 8 13:35:50 Problem Notes None recorded. Procedures Surgical History Date Name Laterality Status Provider Name and Address Organization Details Recorded Time 01/28/20 24 Neuromuscular re-education completed SHANTAL LIN, SAUNDRA [address] [place], [address], [facility] 01/28/2024 16:24:21 01/28/20 24 Treatment and Advice completed SHANTAL LIN PT [address] [place], [address], [facility] 01/28/2024 16:11:11 01/26/20 24 Physical Activity Counselling completed SHANTAL LIN PT [address] [place], [address], [facility] 01/26/2024 11:19:50 01/26/20 24 18648: PT Eval Low Complexity completed SHANTAL LIN, PT [address] [place], [address], [facility] 01/26/2024 11:19:54 01/26/20 24 Treatment and Advice completed SHANTAL LIN, PT [address] [place], [address], [facility] 01/26/2024 11:41:10 04/03/20 23 Smoking Cessation Counselling completed Jyothi Cloud, PT [address] [place], [address], [facility] 04/03/2023 11:46:14 04/03/20 23 Physical Activity Counselling completed Jyothi Cloud, PT [address] [place], [address], [facility] 04/02/2023 16:34:25 04/03/20 23 25566: PT Eval Low Complexity completed Jyothi Cloud, PT [address] [place], [address], [facility] 04/02/2023 16:34:25 04/03/20 23 Treatment and Advice completed Jyothi Cloud, PT [address] [place], [address], [facility] 04/03/2023 15:01:47 04/28/20 22 Physical Activity Counselling completed Joanna Thurman, PT [address] [place], [address], [facility] 04/28/2022 11:56:57 11/27/19 22 Physical Activity Counselling completed Joanna Thurman, PT [address] [place], [address], [facility] 11/26/2021 09:01:22 01/01/20 19 Medicare Wellness Visit completed Lenora Johnson [facility] 12/31/2018 09:30:08 12/24/19 19 Toenail Avulsion completed Georgina Joshi, DPM [address] [place], [address], [facility] 12/24/2018 07:47:50 11/26/19 19 Physical Activity Counselling completed Joanna Thurman, PT [address] [place], [address], [facility] 11/26/2018 08:09:43 07/12/20 18 Physical Activity Counselling completed Joanna Thurman, PT [address] [place], [address], [facility] 07/12/2018 16:58:41 03/10/20 18 Physical Activity Counselling [place], [address], [facility] 03/11/2018 07:19:23 03/10/20 18 52369: PT Eval, Moderate Complexity [place], [address], [facility] 03/11/2018 07:19:32 12/30/19 18 Medicare Wellness Visit completed [facility] 12/29/2017 13:21:17 11/12/19 18 Physical Activity Counselling completed Che Woods [address] [place] [address], [address], [facility] 11/11/2017 13:04:00 11/12/19 18 92290: PT Eval Low Complexity completed Che Woods [address] [place] [address], [address], [facility] 11/11/2017 13:04:00 07/21/20 17 Physical Activity Counselling completed Che Woods [address] [place] [address], [address], [facility] 07/21/2017 19:51:12 07/21/20 17 47130: PT Eval Low Complexity completed Che Woods [address] [place] [address], [address], [facility] 07/21/2017 19:51:12 12/27/19 17 36963: Therapeutic Exercise completed Jyothi Cloud, PT [address] [place], [address], [facility] 12/26/2016 13:14:34 12/27/19 17 92898: Ultrasound (1:1) completed Jyothi Cloud, PT [address] [place], [address], [facility] 12/26/2016 13:14:34 12/24/19 17 02678: Therapeutic Exercise completed Jyothi Cloud, PT [address] [place], [address], [facility] 12/23/2016 13:48:37 12/24/19 17 31528: Ultrasound (1:1) completed Jyothi Cloud, PT [address] [place], [address], [facility] 12/23/2016 13:48:21 12/17/19 17 57895: Therapeutic Exercise completed Jyothi Cloud, PT [address] [place], [address], [facility] 12/16/2016 22:06:28 11/27/19 17 Physical Activity Counselling completed Jyothi Cloud, PT [address] [place], [address], [facility] 11/26/2016 10:36:36 11/27/19 17 43611: PT Josefina, Moderate Complexity completed Jyothi Cloud, PT [address] [place], [address], [facility] 11/26/2016 21:17:20 07/14/20 16 Physical Activity Counselling completed Che Woods [address] [place], [address], [facility] 07/14/2016 21:45:18 06/17/20 16 Medicare Wellness Visit completed Nuha Sanchez RN [facility] 06/17/2016 08:19:35 03/31/20 16 09159: PT Evaluation completed Enrique Zaman, PT [address] [place], [address], [facility] 03/31/2016 14:00:35 03/28/20 16 POC Strep Testing completed Imelda Godinez MA [facility] 03/31/2016 11:15:45 04/25/20 15 43523: Therapeutic Exercise completed Jyothi Cloud, PT [address] [place], [address], [facility] 04/25/2015 12:45:33 04/25/20 15 51406: Manual Therapy completed Jyothi Cloud, PT [address] [place], [address], [facility] 04/25/2015 12:45:33 04/18/20 15 37211: PT Evaluation completed Jyothi Cloud, PT [address] [place], [address], [facility] 04/18/2015 12:46:49 08/22/20 14 Incise and Drain with packing completed Peace Ruano, WEIGH AND CHARGE WORKER [address] [place], [address], [facility] 08/22/2014 14:22:12 Imaging Results Imaging Date Name Status LastModified by Organiz ation Details LastModified Time 07/30/2022 MAMMO, screening, tomosynthesis, bilateral completed [facility] ([facility]) [address], [place], [address], 08/01/2022 10:24:55 Procedure Notes None recorded. Medical Equipment None Reported. Allergies Allergen ID Allergen Name Allergen Category Reaction Reaction Severity Criticality Documentation Date Start Date Code Code System Note Provider Name and Address Organization Details Recorded Time 675188 propranol ol medicatio n Not available Not available Not available 04/15/2013 8787 RxNorm dizzy at lowes t dose Glenis Slade PA-C [address] [facility] [place], [address], [facility] 3 07:44:52 77019 codeine medicatio n Not available Not available Not available 02/06/2012 2670 RxNorm felt like she [facility] 11:34:42 Medications Name Sig Start [...] bromide 42 mcg (0.06 %) nasal spray [place] 2 sprays 3 times a day by [...] Smoking Status Former Smoker Maegan Chavez LPN [facility] 02/06/2012 14:55:41 Do You Have [...] not available 01/25/2015 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 Information not available 12/29/2017 How [...] virus, quadrivalent, PF 4 completed Not Available [facility] 09/17/2019 02:18:56 Influenza, split virus, trivalent, PF 4 completed Not Available [facility] 09/17/2019 02:31:43 zoster live 4 completed Not Available [facility] 09/17/2019 02:16:36 Tdap 5 completed Not Available [facility] 09/17/2019 02:19:26 Influenza, split virus, quadrivalent, PF 5 completed Not Available [facility] 09/17/2019 02:25:39 Td(adult) unspecified formulation 4 completed Lore tabares [facility] 11/05/2012 11:05:45 Influenza, high-dose, trivalent, PF 6 completed Not Available [facility] 09/17/2019 02:21:05 Influenza, high-dose, trivalent, PF 8 completed Not Available [facility] 09/17/2019 02:35:35 Influenza, high-dose, trivalent, PF 9 completed Not Available [facility] 09/17/2019 02:25:35 Past Encounters Encounter ID Performer Location Encounter Start Date Encounter Closed Date Diagnosis/Indication Diagnosis SNOMED-CT Code Diagnosis ICD10 Code Diagnosis Note [id number] Rheumatza adames [address] [address] 02/06/2012 14:37:13 02/09/2012 08:16:56 [id number] Suresh adames [address] [address] 03/08/2012 15:44:48 03/08/2012 16:12:52 [id number] Suresh adames [address] [address] 08/09/2012 07:58:37 08/16/2012 08:50:53 [id number] Vida ROY [facility], OFFICE [address] [place] [address] 11/04/2012 11:15:14 11/04/2012 13:42:01 [id number] Vida ROY [facility], OFFICE [address] [place] [address], [place] [address] 11/18/2012 16:14:15 11/19/2012 07:57:17 [id number] SUNNY Pham [facility], OFFICE [address] [place] [address] 11/30/2012 14:08:06 12/01/2012 07:49:12 [id number] [facility]alia [facility], [address], [place] [address] 12/01/2012 09:56:09 12/02/2012 09:24:43 [id number] Idalia [facility], [address] [place], [place] [address] 12/13/2012 09:52:08 12/14/2012 07:42:08 [id number] Michelle Jett , [facility], OFFICE [address] [facility], [place] [address] 12/17/2012 08:28:56 12/17/2012 09:27:12 Screening mammography [id number] Nuha Iniguez MA , [facility], OFFICE [address] [place] [address], [place] [address] 02/03/2013 09:46:53 02/03/2013 10:54:35 [id number] Glenis Slade PA-C , [facility], OFFICE [address] [place] [address], [place] [address] 02/17/2013 08:57:54 02/17/2013 09:34:44 [id number] Yun Sullivan , [facility], OFFICE [address] [place] [address], [place] [address] 03/10/2013 07:07:22 03/10/2013 07:45:07 [id number] Lesli Leigh MD , [facility], OFFICE [address] [place] [address], [place] [address] 04/15/2013 07:18:02 04/15/2013 07:42:12 Benign essential hypertension 0596267 Well controlled today with good rate control as well. She is back on Metoprolol alternatin g 1 tab 1/2 tab qod. Diltiazem >> dizziness, Gage >> good pressure control but no rate control. Will stay with this for now. F/U prn. Raynaud's disease 313539809 Now has 3 cold fingers. Recommend trial of acupunctur e - she has seen Lana Fairbanks in the past and likes her very much. Agrees to try. Will f/u with outcome and I will continue to investigat e other possible causes. Dizziness 068812289 Cont inues. Meclizine continues to help. Try acupunctur e. If to no avail, may consider imaging as this has continued for quite awhile - ?sinuses, ?neck. [id number] [facility], [address] [place], [place] [address] 05/23/2013 09:24:44 05/26/2013 09:02:53 Benign paroxysmal positional vertigo 961186328 [id number] Idalia Cruz Physical [facility], [address] [place], [place] [address] 05/30/2013 14:59:03 06/01/2013 14:06:23 Benign paroxysmal positional vertigo 107624833 [id number] Idaliadulce Cruz Physical [facility], [address], [place] [address] 06/02/2013 07:50:52 06/03/2013 08:12:15 Benign paroxysmal positional vertigo 971376912 [id number] Idaliadulce Cruz Physical [facility], [address] [place], [place] [address] 06/08/2013 10:00:19 06/09/2013 08:19:39 Benign paroxysmal positional vertigo 888584658 [id number] Rheumatol ogdesmond, [address], [place] [address] 08/19/2013 10:39:26 08/22/2013 10:10:10 Raynaud's disease 777620758 This patient has developed Raynaud's over the [...] in 6 months. Limited sy stemic sclerosis 695370660 At this point incomplet e CREST syndrome . [id number] [place] Limon, [facility], OFFICE [address] [facility] [place] [address] 09/15/2013 09:05:33 09/15/2013 09:56:59 Benign paroxysmal positional vertigo 580712544 Ongoing. Will see Beatrice Woods for eval and treatment. Continue to use meclizine as directed. Stay hydrated. Carpal [place] jason syndrome 63334991 Exam consistent with mild-moder ate carpal tunnel. Reviewed conservati ve vs aggressive treatment - injections , surgery. Will start with braces at nighttime and using ice bid. She can also use NSAIDS prn. Call or RTO if sxs persist/wo rsen. Nasal congestion 00082134 Allergies vs chronic sinusitis? Start Flonase. Continue nasal saline, claritin. [id number] [place] Limon, [facility], OFFICE [address] [facility] [address] 10/27/2013 10:03:07 10/27/2013 11:03:06 Influenza vaccine needed 7875499314 106 Paronychia 72507638 Xray to r/o continued presence of foreign body. Start cephalexin as directed. Advised warm soaks with Epsom salt at least bid-tid. RTO if sxs persist/wo rsen. [id number] Che Woods [facility], [address] [place] [address] 12/19/2013 15:24:50 12/19/2013 16:11:32 Benign paroxysmal positional vertigo 173865196 [id number] Che Woods Physical [facility], [address] [place] [address] 12/21/2013 17:13:35 12/22/2013 08:19:10 Benign paroxysmal positional vertigo 816563946 [id number] Che Woods [facility], [address] [place] [address] 12/27/2013 14:54:41 12/28/2013 16:20:22 Benign paroxysmal positional vertigo 488255948 [id number] Kylah Carver [facility], OFFICE [address] [facility] [place] [address] 01/02/2014 08:21:00 01/02/2014 09:17:37 Adult health examination 858864593 pap done today, mammogram due 2014, colonoscop y due now, tdap and zostavax given today. Pt counselled on diet, exercise, appropriat e calcium intake, and stress management . see Risk Assessment and Lifestyle Change Counseling section above Screening for malignant neoplasm of colon 445830723 Varicella vaccination 27559821 Administra tion of diphtheria, pertussis, and tetanus vaccine 918565956 Screening for malignant neoplasm of cervix 769779247 Benign ess ential hypertension 6488745 Well controlled , below goal of under 140/90. Can cut back metoprolol to every other day. Continue to monitor BP at home, may be able to d/c completely . Hypothyroidism 24771268 Due for labs. She is feeling some palpitatio ns, so may be over compensate d. Will check labs and f/u with results. If palpitatio ns continue, consider holter monitor. [id number] Che Woods Physical [facility], [address] [place] [address] 07/03/2014 13:01:38 07/04/2014 19:55:43 Hip pain 47698772 [id number] [facility], OFFICE [address] [facility] [place] [address] 07/04/2014 07:58:34 07/04/2014 08:30:29 Influenza vaccine needed 0786027620 106 Varicella vaccination 22286271 Benign ess ential hypertension 3019934 Well controlled , at goal of <140/90. Continue medication s as directed. Excellent work with diet & exercise. Hypothyroidism 45457887 Due for labs. She is feeling some palpitatio ns, so may be over compensate d. Will check labs and f/u with results. If palpitatio ns continue, consider holter monitor. [id number] Che Woods [facility], [address] [place] [address] 07/06/2014 08:31:30 07/07/2014 12:32:29 Hip pain 95702224 [id number] Che Woods [facility], [address] [place] [address] 07/13/2014 15:06:16 07/13/2014 16:21:42 Hip pain 51663610 [id number] Che Woods [facility], [address] [place] [address] 07/20/2014 09:27:05 07/21/2014 08:20:11 Hip pain 09013276 [id number] Ofelia Lopes LPN , [facility], OFFICE [address] [place] [address] [facility] [place] [address] 08/22/2014 13:55:53 08/22/2014 14:19:51 Onychia 362582159 Keep clean and dry. Wound care instructio ns reviewed. Continue to soak with Epsom salt and warm water. Will f/u with culture results. [id number] Yun Sullivan , [facility], OFFICE [address] [place] [address] [place] [address] 09/11/2014 14:07:15 09/11/2014 14:56:24 Paronychia of finger 107166125 rt 4th finger./ mild recurrent / grew citrobacte r last time/ will try Bactrim/ has chronic component all nails? refer dermatolog y [id number] Kylah ROY, [facility], OFFICE [address] [facility] jo, [place] [address] 01/25/2015 13:19:27 01/25/2015 14:20:09 Screening for malignant neoplasm of colon 677063246 Screening mammography 57270146 Adult heal th examination 979944101 see Risk Assessment and Lifestyle Change Counseling section above Administra tion of diphtheria, pertussis, and tetanus vaccine 904850757 [id number] Yun ROY, [facility], OFFICE [address] [facility] [place] [address] 04/17/2015 08:54:07 04/17/2015 09:21:59 Lifestyle 575802802 Sciatica 98923794 [id number] Jyothi Cloud, PT Physical Therapy, [address] [place] [address] 04/18/2015 10:08:11 04/18/2015 16:11:08 Hip pain 14910324 Sciatica 82067192 Inflammati on of sacroiliac joint 13276036 [id number] Jyothi Cloud, PT Physical Therapy, [address], [place] [address] 04/25/2015 08:36:09 04/26/2015 08:47:50 Hip pain 69945604 Sciatica 39388639 Inflammati on of sacroiliac joint 71790204 [id number] Yun Sullivan FP, [facility], OFFICE [address] [place] [address], [place] [address] 05/16/2015 14:21:12 05/16/2015 15:02:05 Influenza vaccine needed 1642948936 106 Onychomycosis 998423449 Noted Id reaction, I suspect a fungal infection. Reviewed soaking with Epsom salts, and keeping skin clean & dry. Use of clotrimazo le and oral fluconazol e reviewed. Discussed risks, benefits, side effects, and limitation s of medication . Lifestyle 400874791 [id number] Peace Ruano NP , [facility], OFFICE [address] [place] [address], [place] [address] 06/07/2015 14:19:45 06/07/2015 14:52:54 Onychomycosis 162905164 B35.1 Continued Id reaction, I suspect an ongoing fungal infection. Reviewed soaking with Epsom salts, and keeping skin clean & dry. Use of clotrimazo le and oral terbinafin e reviewed. Discussed risks, benefits, side effects, and limitation s of medication . Consulted with [facility] on case. [id number] Che Woods [facility], [address] [place] [address] 06/21/2015 07:50:12 06/21/2015 10:45:22 Benign paroxysmal positional vertigo 964977108 H81.13 [id number] Che Woods Physical [facility], [address] [place] [address] 06/25/2015 12:54:48 06/25/2015 18:04:06 Benign paroxysmal positional vertigo 087711583 H81.13 [id number] RICO Quinones, [facility], OFFICE [address] [facility] [place] [address] 07/05/2015 14:11:01 07/05/2015 15:37:21 Benign essential hypertension 6715198 I10 Well controlled , at goal of <140/90. Encouraged increased activity, weight loss, heart healthy diet. continue medication s as directed. Raynaud's disease 204916 006 I73.00 Very likely part of a CREST-like picture. Has f/u with Dr. Leigh tomorrow. [id number] Vida Orellana Rheumatol rosangela, [facility] [address] [facility] [place] [address] 07/06/2015 08:41:00 07/16/2015 07:48:13 Raynaud's disease 228504390 I73.00 Basically stable pattern of Raynaud's, but [...] dressing warm etc. Limited sy stemic sclerosis 771477471 M34.9 Limited scleroderm a with features that [...] to monitor for pulmonary hypertensi on. Paronychia 80325476 L03. 746 [id number] Lesli Leigh MD Rheumatol ogy, [address] [place] [address] 09/07/2015 08:44:36 09/07/2015 12:07:26 Limited systemic sclerosis 692812229 M34.9 Limited scleroderm a with features that include Raynaud's, mild sclerodact yly, telangiect shayan, symptoms of mild esophageal dysmotilit y. She has a high titer anticentro mere antibody. Had normal echocardio gram (the ecchocardi ogram report suggested R heart catheteriz ation, but this is not clinically indicated) . Routine f/u 6 mo. Finger ulcer 690697921 L 98.499 Distal digital ulceration R middle [...] if any worsening Raynaud's. Raynaud's phenomenon 266 760799 I73.00 [id number] [facility], [address] [place] [address] 10/02/2015 09:31:48 10/03/2015 23:23:19 Benign paroxysmal positional vertigo 730253596 H81.13 [id number] MAYANK Bender, [facility], OFFICE [address] [facility] [place] [address] 03/28/2016 10:30:17 03/28/2016 11:39:24 Acute upper respiratory infection 03601709 J06.9 Educated patient that URI is a [...] resolve in 2-4 weeks. Coxsackie virus disease 498923028 B34.1 Viral infection, very likely hand foot and mouth disease. Reviewed supportive care and return precaution s. [id number] Belkis Tabares MD , [facility], OFFICE 329 [facility] [place] [address] 03/29/2016 09:56:21 03/29/2016 10:42:35 Spasm of back muscles 405285375 M62.830 We reviewed the basic pathophysi ology [...] motrin 600 mg three times a day [id number] Enrique Zaman, PT Physical Therapy, [facility] 329 [facility] [place] [address] 03/31/2016 13:37:00 04/01/2016 08:39:49 Low back pain 737261444 M54.5 Sacroiliac joint pain 20 9280937 M53.3 [id number] Jeanine ROY, [facility], OFFICE 329 [facility] [place] [address] 04/07/2016 11:48:34 04/07/2016 13:29:[address] was negative in Trthe ED, but pt has continued sinus congestion , sore throat, PND. Empiric tx with abx as nothing else is working. Reviewed medication risks, benefits, side effects, and limitation s. Anti-nucle ar factor detected 926164909 R76.8 Grossly positive CLIFF drawn in 07/2015. Now in the context of elevated ESR, ? positive blood culture, and pharyngiti s. Will check back with rheumatolo gy for further eval and rx. [id number] Lesli Leigh MD Rheumatol rosangela, [facility] [address] [facility] [address] 04/16/2016 08:55:37 04/16/2016 09:34:02 Limited systemic sclerosis 216194406 M34.9 Limited scleroderm a with features that [...] be followed. Routine f/u 6 mo. Pneumonitis 888105833 J1 2.9 Recent small RML consolidat ion on CXR. Repeat in about 2 weeks. Raynaud's phenomenon 266 366808 I73.00 Continue Amlodipine . Used some NTG ointment las winter. Primary fi bromyalgia syndrome 90582460 M79.7 The patient has some fairly mild diffuse musculoske letal pains associated with a prominent sleep disruption . At the moment she is not bothered much, has fair energy and feels well.Encou raged regular exercise, return for this as needed.. [id number] RICO Quinones, [facility], OFFICE 329 [facility] [place] [address] 06/17/2016 08:15:19 06/17/2016 09:12:56 Adult health examination 690378118 Z00.00 see Risk Assessment and Lifestyle Change Counseling section above Counseling 551291729 Z71 .9 Encouraged increased activity and joining a gym, pt agreeable and plans to join a gym, will continue to eat a low fat and vegan diet, also encouraged mediterran marion diet Active or passive immunization 260155219 Z23 Subconjunc tival hemorrhage 73319358 H11.31 Asymptomat ic, instructed if unresolved in 10 days to F/U Benign ess ential hypertension 8448245 I10 BP at goal, [facility] [id number] [facility], [address] [place] [address] 07/14/2016 15:50:36 07/15/2016 08:06:45 Benign paroxysmal positional vertigo 890053820 H81.13 [id number] Che Woods Physical [facility], [address] [place] [address] 07/31/2016 11:14:06 08/04/2016 07:42:56 Benign paroxysmal positional vertigo 408367518 H81.13 [id number] Che Woods Physical [facility], [address] [place] [address] 08/06/2016 16:20:02 08/07/2016 10:57:56 Benign paroxysmal positional vertigo 947936260 H81.13 [id number] Che Woods Physical [facility], [address] [place] [address] 08/21/2016 07:51:48 08/21/2016 16:07:07 Benign paroxysmal positional vertigo 393894324 H81.13 [id number] Che Woods Physical [facility], [address] [place] [address] 1 09/15/2016 09:22:57 09/15/2016 15:40:37 Benign paroxysmal positional vertigo 656235727 H81.13 [id number] Enrique Jones MD , [facility], OFFICE [address] [place] [address] [place] [address] 09/18/2016 08:45:46 09/18/2016 09:28:05 Palpitations 04849027 R00.2 continue to avoid caffeine, sudafed, holter in past unrevealin g, followup as needed. Discussed exercise. Obesity 241038919 E66.9 retiring next week, discussed Y program [id number] Jyothi Cloud, PT Physical Therapy, [address] [place] [address] 11/26/2016 10:06:14 11/27/2016 08:07:38 Low back pain 064840092 M54.5 Sacroiliac joint pain 20 9229406 M53.3 [id number] Ambrocio Baugh MD Sports Medicine, [address] [place] [address] 12/04/2016 13:20:22 12/05/2016 09:20:39 Hip pain 45929859 M25.551 M25.552 Rajani is a 66-year-ol d [...] a trochanter ic bursa corticoste roid injection. [id number] Jyothi Cloud, PT Physical Therapy, [address] [place] [address] 12/16/2016 16:10:26 12/17/2016 13:16:15 Low back pain 617804338 M54.5 Sacroiliac joint pain 20 9943532 M53.3 [id number] Jyothi Cloud, PT Physical Therapy, [address] [place] [address] 12/23/2016 13:06:34 12/23/2016 14:08:48 Low back pain 944368277 M54.5 Sacroiliac joint pain 20 0305501 M53.3 [id number] Peace Ruano NP , [facility], OFFICE [address] [place] [address] [place] [address] 12/25/2016 12:38:08 12/25/2016 13:16:45 Limited systemic sclerosis 070382511 M34.9 Sxs improved with use of CCB. Continue. Will f/u with rheumatolo gy as directed. Benign ess ential hypertension 5674353 I10 BP at goal of <140/90. Continue diet, exercise, medication s. [id number] Jyothi Cloud, PT Physical Therapy, [address] [place] [address] 12/26/2016 12:57:05 12/26/2016 14:20:48 Low back pain 956952800 M54.5 Sacroiliac joint pain 20 5127966 M53.3 [id number] Jyothi Cloud, PT Physical Therapy, [address] [place] [address] 12/26/2016 14:53:31 12/26/2016 14:53:47 [id number] Belkis Tabares MD , [facility], OFFICE [address] [place] [address] 01/13/2017 13:02:05 01/13/2017 16:52:17 Acute allergic serous otitis media 88164629 H65.119 Tincture of time - acute serous [...] helpful. RTC if pain or fevers develop. [id number] TIMMY Narayanan FP, [facility], OFFICE [address] [place] [address] 05/06/2017 15:02:11 05/06/2017 15:30:13 Hypothyroidism 27348849 E03.9 Pt very fatigued latelyLast TSH 4.79 in 2014Taking levothyrox ine 75 mcgWill check TSH today and follow up with result and plan of care as needed Benign ess ential hypertension 5623760 I10 Well-contr olled on HCTZ and amlodipine , but with potential side effects of amlodipine , including dizziness and bilateral foot edemaWill trial amlodipine 2.5 mg daily, and she will return to Dr Leigh to discuss repeat echo and changing medication for rate control [id number] Lesli Leigh MD Rheumatol ogy, [address] [address] 05/25/2017 13:32:18 05/25/2017 16:45:06 Limited systemic sclerosis 873751511 M34.9 Limited scleroderm a with features that include Raynaud's, mild sclerodact yly, telangiect shayan, symptoms of mild esophageal dysmotilit y. She has a high titer anticentro mere antibody. Had normal echocardio gram. No change in any symptoms. Did have digital ulceration last October, slowly healed. Will update labs. Routine f/u 6 mo. Tachycardia 9990917 R00. 0 Actually upper normal HR, generally [...] when weather gets cooler. Raynaud's phenomenon 266 813372 I73.00 See above. Digital ulcer last October. Resume amlodipine in cooler weather. Used some NTG ointment last winter. Continue careful attention to keeping adequately warm. Bursitis of shoulder 239 752869 M75.51 Rotator cuff tendinitis / bursitis R shoulder.R efer for PT. [id number] [facility], [address] [address] 07/21/2017 08:51:26 07/21/2017 20:28:31 Shoulder pain 21971713 M25.511 M25.512 Dizziness 957566088 R42 [id number] Lesli Leigh MD Rheumatol rosangela, [address] [address] 07/31/2017 09:54:36 07/31/2017 11:14:12 Limited systemic sclerosis 317104824 M34.9 Limited scleroderm a with features that [...] f/u 6 mo. Paronychia of finger 444 669974 L03.019 L 4th finger. The finger itself is well perfused at present, though he has significan t Raynaud's at times and has had digital ulceration in past.Discu ssed treatment paronychia . Soak, Keflex.Als o try Nitro-bid ointment for this one finger to help ensure good perfusion. Raynaud's phenomenon 266 315119 I73.00 See above. Digital ulcer last October. Now paronychia l infection. Continue careful attention to keeping adequately warm. Continue amlodipine . [id number] [facility], [address] [address] 08/03/2017 11:25:35 08/03/2017 12:22:14 Shoulder pain 46517547 M25.511 M25.512 Dizziness 046481309 R42 [id number] Che Chuck [facility], [address] [address] 08/06/2017 11:19:10 08/07/2017 09:54:28 Shoulder pain 62627129 M25.511 M25.512 Dizziness 483514540 R42 [id number] [facility], [address] [address] 08/25/2017 12:22:51 08/25/2017 12:58:39 Shoulder pain 42242850 M25.511 M25.512 Dizziness 740926324 R42 [id number] Che [facility], [address] [address] 11/11/2017 12:23:27 11/12/2017 16:37:09 Benign paroxysmal positional vertigo 127756585 H81.12 [id number] Peace Ruano NP , [facility], OFFICE [address] [facility] [address] 11/12/2017 14:08:00 11/12/2017 16:23:31 Dizziness 221100228 R42 Has appt with PT as well. Screening mammography 24 711844 Z12.31 Acute sinusitis 62175185 J01.90 Pt presents today for evaluation of [...] time. Screening for malignant neoplasm of colon 117179904 Z12.11 [id number] [facility], [address] [place] [address] 11/12/2017 14:34:59 11/12/2017 16:34:28 Benign paroxysmal positional vertigo 107423571 H81.12 [id number] Che Woods Physical [facility], [address] [place] [address] 11/17/2017 09:22:32 11/17/2017 12:14:15 Benign paroxysmal positional vertigo 855439455 H81.12 [id number] Che Woods Physical [facility], [address] [place] [address] 12/02/2017 11:22:19 12/02/2017 13:39:38 Benign paroxysmal positional vertigo 782169971 H81.12 [id number] Che Woods Physical [facility], [address] [place] [address] 12/22/2017 12:26:25 12/22/2017 19:48:05 Benign paroxysmal positional vertigo 165523945 H81.12 [id number] TIMMY Macias , [facility], OFFICE [address] [facility] [place] [address] 12/23/2017 10:12:02 12/23/2017 12:20:02 Benign paroxysmal positional vertigo 899306717 H81.13 Hx. of BPPV, likely exacerbate d by recent URI and plane ride. Neuro exam unremarkab le with no red flag symptoms. Already seeing PT for vestibular exams. Has Meclizine. Start Flonase. Advised on home Gin maneuver. Slow position changes. Reviewed ER/return precaution s. [id number] [facility], [address] [place] [address] 12/23/2017 12:52:51 12/23/2017 13:50:58 Benign paroxysmal positional vertigo 370683165 H81.12 [id number] [facility], [address], [place] [address] 12/24/2017 11:19:03 12/27/2017 21:15:10 Benign paroxysmal positional vertigo 882798544 H81.12 [id number] Richa Johnston , TIMMY FP, [facility], OFFICE [address] [facility] [place], [place] [address] 12/29/2017 13:16:02 12/29/2017 14:17:05 Adult health examination 890692514 Z00.00 see Risk Assessment and Lifestyle Change Counseling section aboveLabs reviewed Counseling 725344859 Z71 .9 Depression screening 171 563825 Z13.89 depression screening tool administer ed, entered into emr, scored and discussed, time greater than 7.5 minutes Benign ess ential hypertension 7137163 I10 Blood pressure at goal, Continue meds. HR is elevated, chronic per patient. Will continue to monitor and call if ongoing elevation. States that when she exercises it usually will come down overall. Previously on low dose beta adair but does not wish to start again today. Screening for malignant neoplasm of colon 647551446 Z12.11 Reviewed that the gold standard of colorectal cancer screening is a colonoscop y. Patient is not interested in this at this time and would like to do IFOB cards. Discussed that positive test result should then warrant colonoscop y. Also informed patient of importance of annual screening with IFOB cards. Patient verbalizes understand ing to this plan. Acute sinusitis 03213542 J01.90 Pt presents today for evaluation of [...] or worsen at any time. Hypercholesterolemia 136 30939 E78.00 Lipid levels slightly. ASCVD risk of 9.6%. Patient opting to make lifestyle modificati ons and recheck in 6 months over meds. Screening mammography 24 415030 Z12.31 Due to have mammo. Dizziness 715221117 R42 Still suspect BPPV ? if exacerbate d by acute sinusitis. Trial abx, continue PT, follow up later this week. [id number] [facility], [address] [address] 12/29/2017 14:16:43 12/30/2017 07:59:55 Benign paroxysmal positional vertigo 135040041 H81.12 [id number] [facility], [address] [address] 12/31/2017 13:23:45 12/31/2017 14:07:25 Benign paroxysmal positional vertigo 526279538 H81.12 [id number] [facility], [address] [address] 03/10/2018 13:59:23 03/11/2018 12:12:38 Shoulder pain 02208104 M25.820 [id number] [facility], [address] [address] 03/22/2018 15:52:29 03/22/2018 16:36:57 Shoulder pain 47069966 M25.837 [id number] Joanna Thurman, PT Physical Therapy, [address] [address] 07/12/2018 16:22:54 07/13/2018 09:48:57 Benign paroxysmal positional vertigo 561995721 H81.11 [id number] Joanna Thurman, PT Physical Therapy, [address] [address] 07/14/2018 12:05:50 07/14/2018 14:01:38 Benign paroxysmal positional vertigo 129144963 H81.11 [id number] Peace Ruano NP FP, [facility], OFFICE [address] [facility] [place] [address] 07/15/2018 13:01:26 07/15/2018 13:43:13 Benign essential hypertension 8364525 I10 Blood pressure well below goal. Could likely taper off HCTZ, but she finds that this flares up her BPPV. Continue low dose HCTZ, reviewed diet, exercise, hydration, and weight loss. Active or passive immunization 483413845 Z23 Benign par oxysmal positional vertigo 772138035 H81.10 Ongoing. Will see Beatrice Woods for eval and treatment. Continue to use meclizine as directed. Stay hydrated. Suggested acupunctur e for treatment. [id number] [facility], [address] [place] [address] 08/17/2018 11:19:11 08/17/2018 21:10:32 Benign paroxysmal positional vertigo 114110316 H81.12 [id number] [facility], [address] [place] [address] 08/19/2018 08:53:11 08/20/2018 21:43:05 Benign paroxysmal positional vertigo 432334269 H81.12 [id number] [facility], [address] [place] [address] 08/26/2018 09:53:12 08/26/2018 16:32:41 Benign paroxysmal positional vertigo 051969275 H81.12 [id number] RICO Quinones, [facility], OFFICE [address] [facility] [place] [address] 11/08/2018 07:28:42 11/08/2018 07:50:11 Onychomycosis 562297333 B35.1 I suspect an ongoing fungal infection. Reviewed soaking with Epsom salts, and keeping skin clean & dry. Use of clotrimazo le and oral terbinafin e reviewed. Discussed risks, benefits, side effects, and limitation s of medication . She opted to not use rx medication at this time, will f/u if sxs persist/wo rsen [id number] Joanna Thurman, PT Physical Therapy, [address] [place] [address] 11/25/2018 10:47:08 11/26/2018 08:18:11 Benign paroxysmal positional vertigo 427058049 H81.12 [id number] Joanna Thurman, PT Physical Therapy, [address] [place] [address] 11/26/2018 09:26:09 11/26/2018 10:25:05 Benign paroxysmal positional vertigo 989126325 H81.12 [id number] Caprice Bonner D.O. , [facility], OFFICE [address] [place] [address], [place] [address] 12/09/2018 10:44:38 12/09/2018 11:19:40 Ingrowing toenail 484705985 L60.0 discussed continue warm soaks until she can see podiatry. Onychomycosis 614308754 B35.1 Pre-surger y evaluation 964642729 Z01.818 low risk for low risk surgery. forms completed and faxed to [facility] . Cataract of left eye [phone] 7728171 H26.9 low risk for low risk surgery. forms completed and faxed to [facility] . [id number] Georgina Joshi DPM Podiatry, [address] [address] 12/23/2018 07:44:49 12/23/2018 10:17:20 Ingrowing toenail 837377790 L60.0 right great toe ingrown toenail lateral [...] pain medication prn pain. Pain in toe 698631759 M7 9.052 [id number] Peace Ruano NP FP, [facility], OFFICE [address] [place] [address], [place] [address] 12/31/2018 09:26:21 12/31/2018 10:18:19 Adult health examination 593380654 Z00.00 see Risk Assessment and Lifestyle Change Counseling section above Counseling 871349740 Z71 .9 Encouraged increased activity and joining a gym, pt agreeable and plans to join a gym, will continue to eat a low fat and vegan diet, also encouraged mediterran marion diet Depression screening 171 916287 Z13.89 depression screening tool administer ed, entered into emr, scored and discussed, time greater than 7.5 minutes Benign ess ential hypertension 4521859 I10 Blood pressure at goal. She feels better with better control and decreased pulse. OK to restart beta adair, continue HCTZ. RTO for recheck in 3 months. [id number] Georgina Joshi DPM Podiatry, [address] [place] [address] 01/05/2019 13:09:59 01/06/2019 13:32:18 Ingrowing toenail 021097151 L60.0 right great toe healing. We await bx results. Pt instructed to soak for another week. Ok to leave toe open to air. RTC prn. I spent 15 mins face to face with patient, more 50% spent in counseling and coordinati on of care. Pain in toe 581361512 M7 9.606 [id number] Kitty Osorio RN FP, [facility], OFFICE [address] [facility] [place] [address] 02/01/2019 14:24:10 02/01/2019 14:45:25 Benign essential hypertension 3122099 I10 Blood pressure at goal. She feels better with better control and decreased pulse. OK to restart beta adair, continue HCTZ. RTO for recheck in 3 months. [id number] Peace Ruano NP FP, [facility], OFFICE [address] [facility] [place] [address] 03/01/2019 08:32:48 03/01/2019 09:09:54 Palpitations 92471527 R00.2 EKG revealed occ PAC's. Reviewed benign nature of this condition, monitoring for sxs worsening, and avoiding things like caffeine & etoh. Benign ess ential hypertension 0098136 I10 Blood pressure at goal. She feels better with better control and decreased pulse. OK to restart beta adair, continue HCTZ. [id number] Peace Ruano NP FP, [facility], OFFICE [address] [facility] [place] [address] 04/04/2019 08:47:16 04/05/2019 15:13:04 Benign essential hypertension 1954542 I10 Tolerating meds well. BP at goal of <130/90. Continue meds as directed. Schedule PHA and BP check in December 2019. [id number] Michelle Luevano LPN FP, [facility], OFFICE [address] [facility] [place] [address] 07/07/2019 06:59:44 07/08/2019 06:48:53 Active or passive immunization 206638695 Z23 [id number] Joanna Thurman, PT Physical Therapy, [address] [place] [address] 03/18/2021 14:17:44 03/19/2021 09:00:32 Benign paroxysmal positional vertigo 893965271 H81.12 [id number] Joanna Thurman, PT Physical Therapy, [address] [place] [address] 03/25/2021 08:51:43 03/25/2021 10:50:40 Benign paroxysmal positional vertigo 567257512 H81.12 [id number] Joanna Thurman, PT Physical Therapy, [address] [place] [address] 03/26/2021 10:52:43 03/26/2021 11:48:09 Benign paroxysmal positional vertigo 401531103 H81.12 [id number] Joanna Thurman, PT Physical Therapy, [address] [place] [address] 03/28/2021 09:24:44 03/28/2021 10:20:20 Benign paroxysmal positional vertigo 081796012 H81.12 [id number] Joanna Thurman, PT Physical Therapy, [address] [place] [address] 1 04/12/2021 08:24:37 04/12/2021 09:25:30 Benign paroxysmal positional vertigo 330780360 H81.12 [id number] Joanna Thurman, PT Physical Therapy, [address] [place], [place] [address] 04/15/2021 14:53:19 04/15/2021 15:45:40 Benign paroxysmal positional vertigo 517054638 H81.12 [id number] Joanna Thurman, PT Physical Therapy, [address], [place] [address] 04/19/2021 08:27:31 04/19/2021 09:32:27 Benign paroxysmal positional vertigo 929548982 H81.12 [id number] Joanna Thurman, PT Physical Therapy, [address], [place] [address] 04/29/2021 09:53:42 04/29/2021 11:05:00 Benign paroxysmal positional vertigo 935479387 H81.12 [id number] Joanna Thurman, PT Physical Therapy, [address], [place] [address] 05/07/2021 07:45:05 05/08/2021 07:52:53 Benign paroxysmal positional vertigo 322180015 H81.12 [id number] Joanna Thurman, PT Physical Therapy, [address], [place] [address] 05/15/2021 10:50:25 05/15/2021 12:12:27 Benign paroxysmal positional vertigo 604754101 H81.12 [id number] Joanna Thurman, PT Physical Therapy, [address], [place] [address] 11/26/2021 08:24:40 11/26/2021 09:31:24 Benign paroxysmal positional vertigo 101206925 H81.13 [id number] Joanna Thurman, PT Physical Therapy, [address], [place] [address] 11/28/2021 11:26:26 11/28/2021 12:31:18 Benign paroxysmal positional vertigo 376798629 H81.13 [id number] Joanna Thurman, PT Physical Therapy, [address], [place] [address] 12/02/2021 10:24:19 12/02/2021 11:05:50 Benign paroxysmal positional vertigo 239863274 H81.13 [id number] Joanna Thurman, PT Physical Therapy, [address] [place] [address] 1 12/06/2021 09:23:36 12/06/2021 10:00:25 Benign paroxysmal positional vertigo 306289318 H81.13 [id number] Joanna Thurman, PT Physical Therapy, [address] [place] [address] 04/28/2022 11:21:21 04/28/2022 12:29:18 Benign paroxysmal positional vertigo 342453830 H81.13 [id number] Joanna Thurman, PT Physical Therapy, [address] [place] [address] 1 05/02/2022 09:55:35 05/02/2022 10:53:33 Benign paroxysmal positional vertigo 419221488 H81.13 [id number] Joanna Thurman, PT Physical Therapy, [address] [place] [address] 1 05/06/2022 11:42:39 05/07/2022 08:41:59 Benign paroxysmal positional vertigo 485151231 H81.13 [id number] Jyothi Cloud, PT Physical Therapy, [address] [place] [address] 04/03/2023 11:14:07 04/03/2023 15:28:29 Left-sided piriformis syndrome 6337343207 20400 M54.32 Trochanter ic bursitis of left hip 5619816896 11607 M70.62 Inflammati on of sacroiliac joint 16985625 M46.1 [id number] DAJA LIN, PT Physical Therapy, [address] [place] [address] 01/26/2024 10:47:07 01/26/2024 14:46:41 Benign paroxysmal positional vertigo 192177622 H81.11 [id number] DAJA LIN, PT Physical Therapy, [address] [place] [address] 1 01/28/2024 15:48:34 01/28/2024 17:01:06 Benign paroxysmal positional vertigo [id number] H81.11 Health Concerns Section Related Observation LastModified by Organization Detai ls LastModified Time None Recorded Concern Status LastModified by Organization Details LastModified Time None Recorded Advance Directives Directive N: Discussed and gave form . sc Payers Encounter Date Sequence Insurance Name Policy Number Policy Arizmendi Covered Member ID Arizmendi Member ID Guarantor Name 05/02/2022 2 [facility] - PLAN 1 (MEDICARE SUPPLEMENT) [id number] Rajani S Mitchkoski [id number] Rajani Mitchkoski 05/02/2022 1 [place] Rajani S Mitchkoski [id number] Rajani Mitchkoski 05/06/2022 2 [facility] 1 (MEDICARE SUPPLEMENT) [id number] Rajani S Mitchkoski [id number] Rajani Mitchkoski 05/06/2022 1 [place] Rajani S Mitchkoski [id number] Rajani Mitchkoski 04/03/2023 2 [facility] - PLAN 1 (MEDICARE SUPPLEMENT) [id number] Rajani S Mitchkoski [id number] Rajani Mitchkoski 04/03/2023 1 [place] Rajani S Mitchkoski [id number] Rajani Mitchkoski 01/26/2024 2 [facility] - PLAN 1 (MEDICARE SUPPLEMENT) [id number] Rajani S Mitchkoski [id number] Rajani Mitchkoski 01/26/2024 1 [place] Rajani S Mitchkoski [id number] Rajani Mitchkoski 01/28/2024 2 [facility] - PLAN 1 (MEDICARE SUPPLEMENT) [id number] Rajani S Mitchkoski [id number] Rajani Mitchkoski 01/28/2024 1 [place] Rajani S Mitchkoski [id number] Rajani Mitchkoski Notes Date Note Type Note Provider Name and Address Organization Details Recorded Time 05/02/2022 text/html Dolly statest th at she is feeling better. She reports that she has not been having dizziness when rolling in bed. Joanna Thurman, PT [address] [place], [address], [facility] 05/02/2022 10:25:34 05/06/2022 text/html Dolly states bety t she has been feeling pretty good. I have only felt it once a tiny bit when I was rolling in bed. Joannauzair Thurman, PT [address] [place], [address], [facility] 05/07/2022 07:57:17 04/03/2023 text/html PT [...] by chiro/acupressure clinicians. Jyothi Cloud, PT [address] [place], [address], [facility] 04/03/2023 15:06:53 01/26/2024 text/html Pt is a 73 f referred by PCP (Soto STINSON at [facility]) for vertigo. This episode onset a [...] or when sleeping. SHANTAL LIN, PT [address] [place], [address], [facility] 01/26/2024 14:36:17 01/28/2024 text/html [place] great the first day, and generally speaking, [...] f referred by PCP (Soto STINSON at [facility]) for vertigo. This episode onset a [...] or when sleeping. SHANTAL LIN, PT [address] [facility], [place], [address], [facility] 01/28/2024 16:25:36 OBGyn Episode No OBEpisode recorded.
--- OUTSIDE RECORDS SUMMARY | 2024-11-10 18:06 | XMS_ITS | Encounter Summary ---
Author Organization [employer] Address [address] [facility] [address] [place] [address] Care Team Providers Care Product Support Manager Name Role Phone Provider, Not In System Primary Care Provider Un available Encounter Details Date Type Department Care Team (Late st Contact Info) Description 01/01/2024 Telephone [facility] [address] [place] [address] Provider, Not In System Social [...] filedocumented in this encounter Care Teams Product Support Manager Relationship Specialty Start Date End Date Provider, Not In System PCP - General Family Medicine 06/19/23 documented as of this encounter
--- OUTSIDE RECORDS SUMMARY | 2024-11-10 18:06 | XMS_ITS | Clinical Summary ---
Author Organization [employer] Address [address] [facility] [address] [place] [address] Care Team Providers Care Founder Name Role Phone Provider, Not In System [...] Department Care Team Description 10/07/2024 Patient Outreach [address] [address] Hiwot Smith LPN from Last [...] Lipid Panel, Standard (02/26/2023 3:32 PM EDT) [facility] Cholesterol, Total 124 (<200) MG/DL [facility] Triglyceride (mg/dL) in Serum/Plasma 116 (<150) MG/DL [facility] HDL Cholesterol 49 (>39) MG/DL [facility] LDL Cholesterol, Calculated 52 (0-130) MG/DL [facility] Non HDL Chol. (LDL+VLDL) 75 (<160) MG/DL [facility] Comment: Testing performed or reported by [facility], a Service of [facility], [address] [place] [address] Leo Peres MD, Briquetter Operator [facility]# [id number] Blood Venous blood specimen / Unknown 02/26/2023 3:32 PM EDT 02/26/2023 3:35 PM EDT Peace ANTHONYP LAB BLOOD ORDERABLES Final Resul t [address] [address] * FECAL OCCULT BLOOD, IMMUNOCHEMICAL (11/21/2021 8:36 AM EDT) Fecal Occult Blood, Immunochemical (FIT) NEGATIVE [facility] 11/21/2021 8:36 AM EDT Historical Provider LAB BODY FLUIDS AND STOOL S ORDERABLES Final Result [facility] [address] * Fecal immunochemical (11/21/2021) Fecal Immunoassay Test (External) negative Stool Rectal contents / Unknown us Historical Provider LAB BODY FLUIDS AND STOOL S ORDERABLES Final Result from Last 3 Months or Most Recently Relevant to Health Maintenance Insurance MEDICARE [facility] , [address] [place] [address] * Guarantor: Rajani Hart Account Type Relation to Patient Date of Phone Billing Address Dental Self Care Teams Founder Relationship Specialty Start Date End Date Provider, Not In System PCP - General Family Medicine 06/19/23
--- OUTSIDE RECORDS SUMMARY | 2024-11-10 18:06 | XMS_ITS | Continuity of Care Document ---
Author Organization [facility] Address [address] [facility] [address] [facility] [address] [place] [address]- Care Team Providers Care Knife Glazer Name Role Phone Don MARION, Hank Benoit Primary Care Physic hernando Encounter [facility] Date(s): 10/10/24 - 11/09/24 [facility] [address] [place] [address] Encounter Type: Triage Allergies, Adverse Reactions, Alerts Substance Criticality Severity Reaction Reaction Severity Status codeine Active propranolol Active Immunizations Given and Recorded Vaccine Date Status Refusal Reason [id number] 12y+ bivalent booster vax 09/08/22 Recorded influenza [...] Refills, Maintenance, 12/31/23 2:19:00 PM EDT, Tablet, [facility], Partial fill upon patient request if the prescription is for a schedule II opioid drug., 159, cm, 12/31/23 7:50:00 EDT, Height, 84.6, kg, 12/17/23 8:19:00 EDT,Dry Weight Start Date: 12/31/23 Status: Ordered Quantity: 30.0 Unit: tablet Repeat number: 3 azaTHIOprine 50 mg oral tablet 2 siievd=222 mg, By Mouth, Daily in AM, Refills [...] 1:16:00 PM EST, Route to Pharmacy Electronically, [id number], Partial fill upon patient request if the [...] 1:16:00 PM EST, Route to Pharmacy Electronically, [id number], Partial fill upon patient request if the [...] 1:17:00 PM EST, Route to Pharmacy Electronically, [facility][id number], Partial fill upon patient request if the [...] Team Personnel Name: Lazara Cowan RN Position: [facility] RN Member Role: Primary Care Nurse Name: Jud Ochoa Position: [facility] RN Supv Member Role: Primary Care Nurse Name: Kris Leigh MD Position: [facility] Physician (General Medicine) Member Role: Lifetime Consulting Physician Address: [address] [place] [address]- Telecom: Name: Oly Garcia RN Position: [facility] RN Member Role: Primary Care Nurse Name: Doyle Pacheco RN Position: [facility] RN Member Role: Primary Care Nurse Name: Monik Betancourt Position: [facility] Outreach Member Role: Lifetime Consulting Physician Name: Yoly Carr RN Position: [facility] RN Member Role: Primary Care Nurse Name: Sally Peres RN Position: [facility] ED RN W/OE and Tasks Member Role: Primary Care Nurse Name: Michel Olivera RN Position: [facility] RN Member Role: Primary Care Nurse Name: Jacqui Alcala RN Position: [facility] RN Member Role: Primary Care Nurse Name: Lavinia Nagy RN Position: [facility] RN Member Role: Primary Care Nurse Name: Hank Ochoa MD Position: Reference Physician Member Role: PCP Address: [address] [place] [address]- Telecom: Care Team Related Persons Name: GRACIELA FELIZ Insurance Providers Guarantor name: [facility] Information #: 1 Payer: SELF PAY REVIEW PTRQ Member Number: NA Policy Number: NA Group Number: NA
== END 2024-11-10 15:26 | disposition home or self-care (01) ==
LOC: HO.HMCH 14:13
PROVIDERS: PCP Internal Medicine; Visit Provider Internal Medicine
DX: Z00.00 Encounter for general adult medical examination without abnormal findings (principal)

== ENCOUNTER 2024-11-10 15:30 | Outpatient (AMB) | payer MEDICARE, OTHER, SELFPAY ==
[2024-11-10 15:32] VITALS: BP 132/78; PULSE 109; O2SAT 95; BMI 31.8
--- NOTE | 2024-11-10 15:32 | A.OFFVIS_ITS ---
Vital Signs 11/10/24 15:32 Height 5 ft 3 in Weight 179 lb 10.828 oz BMI 31.8 BP 132/78 Blood Pressure Location Lt brachial Position Sitting Pulse 109 H Pulse Source Doppler Pulse Oximetry (%) 95 Oxygen Delivery Method Room Air Intake Visit Reasons: ILD Allergies codeine Allergy (Severe, Verified 11/10/24 15:40) felt like going to empagliflozin [From Jardiance] Allergy (Intermediate, Verified 11/10/24 15:40) Vomiting propranolol Allergy (Intermediate, Verified 11/10/24 15:40) dizziness Seasonal Allergies Allergy (Intermediate, Verified 11/10/24 15:40) Sneezing, vertigo HPI HPI ILD: Details: 73-year-old lady, former 40 pack smoker, quit 30 years prior, with underlying CREST under Rheumatology care, now followed for pulmonary component of dyspnea on exertion and 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 Patient respiratory symptoms are now controlled on prednisone 10 mg daily and Imuran 100 mg daily. Patient also seen [facility] pulmonary hypertension specialist and was put in sildenafil, though with no changes in her symptoms and no significant pulmonary hypertension noted on right heart catheterization or 2D echocardiogram. She continues on Lasix 60 mg daily. she was tried on Imuran, however was not able to tolerated secondary to GI side effects. She continues on prednisone 10 mg and Lasix 60 mg daily with good control of her symptoms. Today she is complaining of what appears to be cluster headaches and also sinusitis/rhinitis. FOR[facility]LY [facility], [facility] Medical History (Updated 11/10/24 @ 15:48 by Pancho Monson MD) Adverse reaction to drug Restless leg syndrome Pacemaker Lower thoracic back pain Bifascicular block Supplemental oxygen dependent CREST (calcinosis, Raynaud's phenomenon, esophageal dysfunction, sclerodactyly, telangiectasia) Dyspnea on exertion Pericardial effusion Hypothyroid Enlarged thyroid Hypertension Multinodular thyroid Telangiectasia Dysphagia Surgical History S/P placement of cardiac pacemaker S/P cardiac cath S/P tooth extraction Hx of colonoscopy H/O breast biopsy Family History Father Heart disease Sister Ovarian cancer Brother Heart attack Stroke Mother Thyroid disease Brother Asthma Social History (Updated 11/10/24 @ 14:42 by VAIBHAV Mauro Household Members: Spouse Housing: House Do you presently have visiting nurse or other home services: Yes ([facility] ,[facility]) Alcohol intake: never Patient Tobacco Use Status: Former Tobacco user Tobacco use type: Cigarette Years Smoked: 20 +/- e-Cigarette/Vaping Use: Never Used Second Hand Smoke Exposure: Yes Advance Directives Date on File: 02/13/24 service: No Current occupational status: retired 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 Cognitive needs: Yes (walker) Hearing needs: No Vision needs: Yes (Glasses) Review of Systems Const Denies daytime sleepiness, Denies excessive sweating, Denies fatigue, Denies fever(s), Denies lethargy, Denies malaise, Denies night sweats, Denies snoring and Denies weight loss Eyes Denies blurry vision and Denies itchy eyes ENT Reports nasal congestion, Reports post nasal drip, Denies sinus pain, Reports sinus pressure and Denies other ( Thrush) Card Denies chest pain, Denies pedal edema, Denies dyspnea, Denies orthopnea and Denies paroxysmal nocturnal dyspnea Resp Denies cough, Denies hemoptysis, Denies excessive phlegm production, Denies dyspnea, Denies snoring and Denies wheezing GI Denies abdominal pain and Denies heartburn Musc Denies myalgias, Denies arthralgias and Denies joint swelling Skin/Breast Denies rash Neuro Denies memory loss and Denies seizure-like activity Psych Denies abnormal sleep pattern, Denies anxiety and Denies memory loss Endo Denies excessive sweating, Denies fatigue and Denies heat intolerance Kenneth/Lymph Denies easy bruising Aller/Immun Denies itchy eyes, Denies seasonal rhinorrhea and Denies wheezing Physical Exam Vital Signs: Last Vital Signs Pulse 109 H 11/10/24 15:32 BP 132/78 11/10/24 15:32 Pulse Ox 95 11/10/24 15:32 Oxygen Delivery Method Room Air 11/10/24 15:32 BMI result Body Mass Index 31.8 Const General: no acute distress and alert Nutritional Appearance: not obese Orientation/consciousness: Other orientation findings ( oriented) HEENT Head: Yes atraumatic Eyes General: appearance normal, both eyes and all related structures Sclerae: sclerae normal EOM: EOMs intact bilaterally Neck Neck: Yes supple Lymphatic: no lymphadenopathy noted Resp Effort & Inspection: normal respiratory effort and no use of accessory muscles Auscultation: clear to auscultation bilaterally Cardio Rate: regular rate Rhythm: regular rhythm Heart sounds: no gallops, no murmurs and no rubs Skin General skin exam: other ( warm) Extrem General: No clubbing, No cyanosis and No edema Assessment & Plan Assessment & Plan (1) ILD (interstitial lung disease): Code(s): J84.9 - Interstitial pulmonary disease, unspecified Category: Medical Plan: Well controlled on current regimen of prednisone 10 mg daily, will consider further titration down if remains stable. (2) Environmental allergies: Code(s): Z91.09 - Other allergy status, other than to drugs and biological substances Category: Medical Plan: Will obtain IgE level, CBC with differential, and RAST panel. (3) Pulmonary edema: Code(s): J81.1 - Chronic pulmonary edema Category: Medical Plan: Well controlled on current diuretic regimen. Continue furosemide 60 mg daily. Orders: Orders Resp Allergy Profile Region I Today Z91.09 - Other allergy status, other than to drugs and biological substances Complete Blood Count Auto Diff Today Z91.09 - Other allergy status, other than to drugs and biological substances Medications: New doxycycline monohydrate 100 mg PO BID 28 caps 0RF 14 days Z91.09 - Other allergy status, other than to drugs and biological substances Coding Level of Care Code Est Pt Level 4 (68764) Complex EM visit Add On G2211 Diagnoses ILD (interstitial lung disease) J84.9 Environmental allergies Z91.09 Pulmonary edema J81.1
--- OUTSIDE RECORDS SUMMARY | 2024-11-10 19:05 | XMS_ITS | Clinical Summary ---
Author Organization [employer] Address [address] [facility] [address] [place] [address] Care Team Providers Care Expenditure Requisition Clerk Name Role Phone Provider, Not In System [...] Department Care Team Description 10/07/2024 Patient Outreach [address] [phone] Hiwot Smith LPN from Last [...] Lipid Panel, Standard (02/26/2023 3:32 PM EDT) [facility] Cholesterol, Total 124 (<200) MG/DL [facility] Triglyceride (mg/dL) in Serum/Plasma 116 (<150) MG/DL [facility] HDL Cholesterol 49 (>39) MG/DL [facility] LDL Cholesterol, Calculated 52 (0-130) MG/DL [facility] Non HDL Chol. (LDL+VLDL) 75 (<160) MG/DL [facility] Comment: Testing performed or reported by [facility], a Service of [facility], [address] [place] [address] Leo Peres MD, Purchasing And Fiscal Clerk [facility]# [id number] Blood Venous blood specimen / Unknown 02/26/2023 3:32 PM EDT 02/26/2023 3:35 PM EDT Peace ANTHONYP LAB BLOOD ORDERABLES Final Resul t [address] [address] * FECAL OCCULT BLOOD, IMMUNOCHEMICAL (11/21/2021 8:36 AM EDT) Fecal Occult Blood, Immunochemical (FIT) NEGATIVE [facility] 11/21/2021 8:36 AM EDT Historical Provider LAB BODY FLUIDS AND STOOL S ORDERABLES Final Result [facility] [address] * Fecal immunochemical (11/21/2021) Fecal Immunoassay Test (External) negative Stool Rectal contents / Unknown us Historical Provider LAB BODY FLUIDS AND STOOL S ORDERABLES Final Result from Last 3 Months or Most Recently Relevant to Health Maintenance Insurance MEDICARE [facility] , [address] [place] [address] * Guarantor: Rajani Hart Account Type Relation to Patient Date of Phone Billing Address Dental Self Care Teams Expenditure Requisition Clerk Relationship Specialty Start Date End Date Provider, Not In System PCP - General Family Medicine 06/19/23
--- OUTSIDE RECORDS SUMMARY | 2024-11-10 19:05 | XMS_ITS | Continuity of Care Document ---
Author Organization [employer] [facility] Address [address] [place] [address] [address] [place], [place] Phone [phone] Care Team Providers Care Sail Maker Name Role Phone Dayan Barragan MD Care Team Information Rec eiver Unavailable Social History Type Date Description Comments Sex Unknown
--- OUTSIDE RECORDS SUMMARY | 2024-11-10 19:05 | XMS_ITS | Encounter Summary ---
Author Organization [employer] Address [address] [facility] 7t [place] [address] Care Team Providers Care Atm Manager Name Role Phone Peace Ruano Primary Care Provider Unavailab le Peace Ruano Unavailable Unavailable Provider, Not In System Primary Care Provider Un available Encounter Details Date Type Department Care Team (Late st Contact Info) Description 07/22/[address] [phone] Peace Ruano FNP Social History Tobacco Use [...] on filedocumented in this encounter Care Teams Atm Manager Relationship Specialty Start Date End Date Peace Ruano FNP PCP - General Family Medicine 06/27/22 06/18/23 Provider, Not In System PCP - General Family Medicine 06/19/23 Peace Ruano FNP Family Medicine 06/27/22 06/18/23 documented as of this encounter
--- OUTSIDE RECORDS SUMMARY | 2024-11-10 19:05 | XMS_ITS | Encounter Summary ---
Author Organization [employer] Address [address] [place] [address] Care Team Providers Care Internet Specialist Name Role Phone Provider, Not In System Primary Care Provider Un available Encounter Details Date Type Department Care Team (Late st Contact Info) Description 01/01/2024 Telephone [facility] [address] [place] [address] Provider, Not In System Social [...] on filedocumented in this encounter Care Teams Internet Specialist Relationship Specialty Start Date End Date Provider, Not In System PCP - General Family Medicine 06/19/23 documented as of this encounter
== END 2024-11-10 15:48 | disposition home or self-care (01) ==
LOC: HO.HPS 15:31
PROVIDERS: PCP Internal Medicine; Visit Provider Internal Medicine Pulmonary Disease
DX: J84.9 Interstitial pulmonary disease, unspecified (principal); Z91.09 Other allergy status, other than to drugs and biological substances; J81.1 Chronic pulmonary edema
CPT/HCPCS: 99214; G2211

== ENCOUNTER 2024-11-10 15:52 | Outpatient (REF) | payer MEDICARE, OTHER, SELFPAY ==
[2024-11-10 16:03] LABS: MANUAL DIFF FLAG NO
[2024-11-10 17:08] LABS: Basophils Percent Auto 0.3 % (0-2); Eosinophils Percent Auto 0.1 % (0-4); Hematocrit 35.1 % (37.0-47.0); Hemoglobin 10.2 g/dl (12.0-16.0); Imm Gran Abs Auto 0.08 X10*3/uL (0.00-0.03); Imm Gran Pct Auto 0.7 % (0.0-0.4); Lymphocytes Absolute Auto 1.6 X10*3/uL (1.2-4.9); Lymphocytes Percent Auto 14.5 % (20-40); Mean Corpuscular HGB Conc 29.1 g/dl (31.0-35.0); Mean Corpuscular Hemoglobin 24.6 pg (27.0-33.0); Mean Corpuscular Volume 84.8 fL (80.0-98.0); Mean Platelet Volume 9.3 fL (9.4-12.3); Monocytes Absolute Auto 0.5 X10*3/uL (0.1-1.2); Monocytes Percent Auto 4.5 % (2-11); Neutrophils Absolute Auto 8.6 x10*3/uL (2.0-8.3); Neutrophils Percent Auto 79.9 % (45-73); Platelet Count 444 X10*3/uL (160-400); Red Blood Count 4.14 X10*6/uL (4.20-5.50); Red Cell Distribution Width 23.8 % (11.0-16.0); White Blood Count 10.8 X10*3/uL (4.8-10.8)
--- OUTSIDE RECORDS SUMMARY | 2024-11-10 19:13 | XMS_ITS | Continuity of Care Document ---
Author Organization [facility] Address [address] [place] [address] [address] [place], [place] Phone [phone] Care Team Providers Care Operator Weapon Locating Radar Name Role Phone Dayan Barragan MD Care Team Information Rec eiver Unavailable Social History Type Date Description Comments Sex Unknown
[2024-11-14 19:19] LABS: Class Alternaria alternata 0; Class Aspergillus fumigatus 0; Class Bermuda Grass 0; Class Birch 0; Class Cat Dander 0; Class Cladosporium herbarum 0; Class Cockroach 0; Class Common Ragweed 0; Class Cottonwood 0; Class Derm. pterony 0; Class Dermatophagoides farinae 0; Class Dog Dander 0; Class Elm 0; Class Maple Box Elder 0; Class Mountain Cedar 0; Class Mouse Urine Protein 0; Class Mugwort 0; Class Oak 0; Class Penicillium crysogenum 0; Class Rough Pigweed 0; Class Sheep Sorrel 0; Class Sycamore 0; Class Timothy Grass 0; Class Walnut Tree 0; Class White Ash 0; Class White Mulberry 0; D001 IgE D pteronyssinus <0.10 kU/L; D002 - IgE D farinae <0.10 kU/L; E001 - IgE Cat Dander <0.10 kU/L; E005 - IgE Dog Dander <0.10 kU/L; E072-IgE Mouse Urine <0.10 kU/L; G002 IgE Bermuda Grass <0.10 kU/L; G006 - IgE Timothy Grass <0.10 kU/L; I006-IgE Cockroach, German <0.10 kU/L; Immunoglobulin E <2 kU/L (<OR=114); M001 IgE Penicillium chrysogen <0.10 kU/L; M002 - IgE Cladosporium herbar <0.10 kU/L; M003 - IgE Aspergillus fumigat <0.10 kU/L; M006 - IgE Alternaria alternat <0.10 kU/L; T001 IgE Maple/Box Elder <0.10 kU/L; T003 IgE Common Silver Birch <0.10 kU/L; T006 - IgE Cedar, Mountain <0.10 kU/L; T007 - IgE Oak, White <0.10 kU/L; T008 IgE Elm, American <0.10 kU/L; T010 - IgE Walnut <0.10 kU/L; T011 - IgE Maple Leaf Sycamore <0.10 kU/L; T014 - IgE Cottonwood <0.10 kU/L; T015 - IgE Ash, White <0.10 kU/L; T070 - IgE White Mulberry <0.10 kU/L; W001 - IgE Ragweed, Short <0.10 kU/L; W006 - IgE Mugwort <0.10 kU/L; W014 IgE Pigweed, Common <0.10 kU/L; W018 IgE Sheep Sorrel <0.10 kU/L
== END 2024-11-10 15:53 | disposition home or self-care (01) ==
LOC: HO.LAB 15:52
PROVIDERS: PCP Internal Medicine; Visit Provider Internal Medicine Pulmonary Disease
DX: Z91.09 Other allergy status, other than to drugs and biological substances (principal)
CPT/HCPCS: 36415; 82785; 85025; 86003; 99212

== ENCOUNTER → 2024-11-11 23:59 | Outpatient (BNV) | payer MEDICARE, OTHER, SELFPAY ==
--- NOTE | 2024-12-06 12:57 | MHC.OFFVIS ---
Intake Visit Reasons: Remote Device Check-Medtronic Allergies codeine Allergy (Severe, Verified 11/10/24 15:40) felt like going to empagliflozin [From Jardiance] Allergy (Intermediate, Verified 11/10/24 15:40) Vomiting propranolol Allergy (Intermediate, Verified 11/10/24 15:40) dizziness Seasonal Allergies Allergy (Intermediate, Verified 11/10/24 15:40) Sneezing, vertigo PFSH Medical History (Updated 11/10/24 @ 15:48 by Pancho Monson MD) Adverse reaction to drug Restless leg syndrome Pacemaker Lower thoracic back pain Bifascicular block Supplemental oxygen dependent CREST (calcinosis, Raynaud's phenomenon, esophageal dysfunction, sclerodactyly, telangiectasia) Dyspnea on exertion Pericardial effusion Hypothyroid Enlarged thyroid Hypertension Multinodular thyroid Telangiectasia Dysphagia Surgical History S/P placement of cardiac pacemaker S/P cardiac cath S/P tooth extraction Hx of colonoscopy H/O breast biopsy Family History Father Heart disease Sister Ovarian cancer Brother Heart attack Stroke Mother Thyroid disease Brother Asthma Social History (Updated 11/10/24 @ 14:42 by LUCAS Mauro) Household Members: Spouse Housing: House Do you presently have visiting nurse or other home services: Yes ([facility] ,PT) Alcohol intake: never Patient Tobacco Use Status: Former Tobacco user Tobacco use type: Cigarette Years Smoked: 20 +/- e-Cigarette/Vaping Use: Never Used Second Hand Smoke Exposure: Yes Advance Directives Date on File: 02/13/24 service: No Current occupational status: retired 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 Battery life 11.6 years. DDD mode. V paced 99.9 % A paced 0.1% [id number] Cardiac Device Interrogation, pacemaker Procedure code (CPT) selection complete Assessment & Plan Assessment & Plan (1) Pacemaker: Comment: (Medtronic DCPP for complete heart block 12/2023) Code(s): Z95.0 - Presence of cardiac pacemaker Category: Medical Plan Medications: Discontinued tramadol Discontinued Reason: Doctor's Order 50 mg PO BID 30 days PRN 60 tabs 0RF pain Coding Level of Care Code Procedure Only Diagnoses Pacemaker Z95.0 CPT Codes Cardiac Device Check - Cardiac Device 12: [id number] Cardiac Device Interrogation, pacemaker ([id number])
== END ==
PROVIDERS: PCP Internal Medicine; Visit Provider Internal Medicine Cardiovascular Disease
DX: Z45.018 Encounter for adjustment and management of other part of cardiac pacemaker (principal)
CPT/HCPCS: 93294

== ENCOUNTER 2025-01-09 13:04 | Outpatient (AMB) | payer MEDICARE, OTHER, SELFPAY ==
--- NOTE | 2025-01-09 13:14 | A.OFFVIS_ITS ---
Vital Signs 01/09/25 13:20 Height 5 ft 3 in Weight 179 lb 7.3 oz BMI 31.8 BP 130/62 Blood Pressure Location Lt brachial Position Sitting Pulse 84 Pulse Source Monitor Intake Visit Reasons: 2m follow up Intake Note: 2 mth f/up Bag Machine Operator Helper Required: No Accompanied by: Self / Same As Patient Allergies codeine Allergy (Severe, Verified 11/10/24 15:40) felt like going to empagliflozin [From Jardiance] Allergy (Intermediate, Verified 11/10/24 15:40) Vomiting propranolol Allergy (Intermediate, Verified 11/10/24 15:40) dizziness Seasonal Allergies Allergy (Intermediate, Verified 11/10/24 15:40) Sneezing, vertigo Medication List - Last Reconciled 01/09/25 by Cristofer Bermudez MD acetaminophen (Tylenol) 650 mg PO QID PRN atorvastatin 40 mg PO DAILY azithromycin take 500 mg today (day 1), then 250 mg for 4 days (days 2-5) PO calcium carbonate-vitamin D3 600 mg-20 mcg (800 unit) 1 tab PO DAILY cetirizine 10 mg PO DAILY doxycycline monohydrate 100 mg PO BID 14 days furosemide 60 mg (1.5 x 40 mg) PO QAM 30 days gabapentin 100 mg PO BEDTIME levothyroxine 88 mcg PO DAILY meclizine (Dramamine (meclizine)) 25 mg PO BID PRN melatonin 5 mg PO .qhs metoprolol succinate ER (Toprol XL) 50 mg PO BID naproxen sodium (Flanax (naproxen)) 220 mg PO BID PRN omeprazole 40 mg PO DAILY prednisone 10 mg PO DAILY prochlorperazine maleate (Compazine) 10 mg PO BID PRN tizanidine 4 mg PO BID PRN tramadol 50 mg PO BID PRN HPI Comments Details: 74-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 She has been experiencing shortness of breath for long time. She was a smoker from age [age] and smoke heavily. She had pulmonary function test done recently which reveals some concern for emphysema. She has been on inhalers without any change in her breathing. She is saying she is able to walk a block and go up a flight of stairs but after that she gets shortness of breath which limits her activity. She has no chest discomfort. She underwent echocardiography to rule out pulmonary hypertension and there was no evidence of pulmonary hypertension on that. There was small pericardial effusion noticed. She has Raynaud's and hypertension and has been taking hydrochlorothiazide and amlodipine with good control blood pressure as well as Raynaud. She has been following with GI and Rheumatology. 06/01/23: She returns for follow-up. Her blood pressure is elevated in the office 150/80. Also on April 10 she had blood pressure checked which was 160/90. She has been taking hydrochlorothiazide every other day. She had echocardiography performed she showing small pericardial effusion but no tamponade physiology. She has small pericardial effusion before in July 2022. She is denying any significant chest discomfort. She is saying her breathing has been better since she has been on prednisone. She is taking 5 mg daily. 02/22/24: She is here for follow-up. Recent admission to [facility] with shortness of breath and hypoxia where CT scan was concerning for bilateral ground-glass infiltrates concerning for interstitial lung disease versus CHF. She also has recent COVID-19 infection. In November she was at [facility] with COVID-19 and bradycardia and had permanent pacemaker placed. While she was at [facility] she was advised to undergo left and right heart catheterization but she decided against it. She has seen pulmonology and her Lasix was increased from 20-60 mg but she has been mostly taking 40 mg at this point. She is saying her breathing is okay but she does get shortness of breath with exertion. She also has a continuous pulse ox machine and she has noted that her saturations are at times low in 70s but she also has Raynaud's. During her admission at [facility] echocardiography raise concern for mitral stenosis with moderate to severe MS. Overall she is stable. Denying any chest discomfort any other complaints. 03/21/24: She has had for follow-up. She continues to get shortness of breath with activities. She is saying that during ambulation such fall to 70s and then when she takes deep breaths the saturation improved 90s this is quite unusual for heart failure or valvular disease. She previously had [id number] heart catheterization when her filling pressures were normal. This was years ago though. She is denying any chest discomfort. She also is getting some episodes of coughing and wheezing in the morning. She sleeps quite flat in bed and has crest syndrome and probably gets bad acid reflux. Her heart rate is 88 with metoprolol 25 mg twice a day. 10/10/24: Here for f/u after recent admission at [facility] for CHF. She was not taking care of his diet and was taking too much salt. She was diuresed and sent home. She is feeling ok. She was given script for cardizem but she didnt start it yet. Her BP is borderline and I have advised her to hold off on starting it. She had PABLO at [facility] few months back which confirmed mitral valve to be moderate and she has moderate MS. 01/09/2025: She is here for follow-up. She has been doing quite well since the recent admission at [facility]. She is off oxygen at this point for last 4 months. Denying any orthopnea or PND. [facility] Medical History (Updated 11/10/24 @ 15:48 by Pancho Monson MD) Adverse reaction to drug Restless leg syndrome Pacemaker Lower thoracic back pain Bifascicular block Supplemental oxygen dependent CREST (calcinosis, Raynaud's phenomenon, esophageal dysfunction, sclerodactyly, telangiectasia) Dyspnea on exertion Pericardial effusion Hypothyroid Enlarged thyroid Hypertension Multinodular thyroid Telangiectasia Dysphagia Surgical History S/P placement of cardiac pacemaker S/P cardiac cath S/P tooth extraction Hx of colonoscopy H/O breast biopsy Family History Father Heart disease Sister Ovarian cancer Brother Heart attack Stroke Mother Thyroid disease Brother Asthma Social History Household Members: Spouse Housing: House Do you presently have visiting nurse or other home services: Yes ([facility]NA ,PT) Alcohol intake: never Patient Tobacco Use Status: Former Tobacco user Tobacco use type: Cigarette Years Smoked: 20 +/- e-Cigarette/Vaping Use: Never Used Second Hand Smoke Exposure: Yes Advance Directives Date on File: 02/13/24 service: No Current occupational status: retired 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 Cognitive needs: Yes (walker) Hearing needs: No Vision needs: Yes (Glasses) Review of Systems Const Denies chills, Denies fatigue, Denies fever(s), Denies frequent falls, Denies weakness, Denies weight gain and Denies weight loss ENT Denies dizziness Card Denies chest pain, Denies leg edema, Denies lightheadedness, Denies palpitations, Denies dyspnea and Denies dyspnea on exertion Resp Denies cough, Denies dyspnea and Denies dyspnea on exertion GI Denies hematochezia Musc Denies abnormal gait, Denies muscle weakness, Denies numbness, Denies radiating pain into limb and Denies tingling Neuro Denies abnormal gait, Denies dizziness, Denies frequent falls, Denies numbness, Denies tingling and Denies weakness Endo Denies fatigue and Denies palpitations Physical Exam Vital Signs: Last Vital Signs Pulse 84 01/09/25 13:20 BP 130/62 01/09/25 13:20 BMI result Body Mass Index 31.8 GENERAL APPEARANCE: in no acute distress, pleasant. NECK: no carotid bruit, no jugular venous distention. SKIN: no suspicious lesions, warm and dry. HEART: apical mid diastolic murmur, regular rate and rhythm. LUNGS: clear to auscultation bilaterally. ABDOMEN: soft, nontender. EXTREMITIES: no edema. PERIPHERAL PULSES: equal. NEUROLOGIC: No gross deficits, AAO X 3 Office Procedures EKG Details: Atrial paced rhythm 84 beats per minute, right axis deviation, nonspecific ST changes, QTC 479 milliseconds [id number], Complete Assessment & Plan Assessment & Plan (1) Chronic diastolic heart failure: Code(s): I50.32 - Chronic diastolic (congestive) heart failure Category: Medical (2) Moderate mitral stenosis: Code(s): I05.0 - Rheumatic mitral stenosis Category: Medical (3) CREST (calcinosis, Raynaud's phenomenon, esophageal dysfunction, sclerodactyly, telangiectasia): Code(s): M34.1 - CR(E)ST syndrome Category: Medical Plan [age] year female with moderate mitral valve stenosis and chronic diastolic heart failure. She has been doing quite well currently with euvolemic status on Toprol-XL 50 mg twice a day and Lasix 60 mg daily. She is currently off oxygen. Clinically stable and doing quite well. We will see her back in few months. Thank you for allowing me to participate in the care of your patient. Please feel free to contact me if you have any questions. Coding Level of Care Code Est Pt Level 4 (18870) Diagnoses Chronic diastolic heart failure I50.32 Moderate mitral stenosis I05.0 CREST (calcinosis, Raynaud's phenomenon, esophageal dysfunction, sclerodactyly, telangiectasia) M34.1 CPT Codes EKG - CPT: 73041-[id number], Complete ([id number])
[2025-01-09 13:20] VITALS: BP 130/62; PULSE 84; BMI 31.8
--- OUTSIDE RECORDS SUMMARY | 2025-01-09 13:21 | XMS_ITS | Continuity of Care Document ---
Author Organization [facility] Address [address] [place] [address] [address] [place], [place] Phone [phone] Care Team Providers Care Agricultural Extension Officer Name Role Phone Dayan Barragan MD Care Team Information Rec eiver Unavailable Social History Type Date Description Comments Sex Unknown
--- OUTSIDE RECORDS SUMMARY | 2025-01-09 13:21 | XMS_ITS | Encounter Summary ---
Author Organization [employer] Address [address] [facility] [address] [place] [address] Care Team Providers Care Child Center Assistant Name Role Phone Peace Ruano Primary Care Provider Unavailab Peace López Unavailable Unavailable Provider, Not In System Primary Care Provider Un available Encounter Details Date Type Department Care Team (Late st Contact Info) Description 07/22/[address] [id number] Peace Ruano FNP Social History Tobacco Use [...] on filedocumented in this encounter Care Teams Child Center Assistant Relationship Specialty Start Date End Date Peace Ruano FNP PCP - General Family Medicine 06/27/22 06/18/23 Provider, Not In System PCP - General Family Medicine 06/19/23 Peace Ruano FNP Family Medicine 06/27/22 06/18/23 documented as of this encounter
--- OUTSIDE RECORDS SUMMARY | 2025-01-09 13:22 | XMS_ITS | Clinical Summary ---
Author Organization [employer] Address [address] [place] [address] [address] [place] [address] Care Team Providers Care Peoplesoft Administrator Name Role Phone Provider, Not In System [...] Encounters Date Type Department Care Team Description 11/11/2024 Population Health Risk Score [facility] () Department [address] [place] [phone] Provider, Population Health Generic from Last 3 Months Immunizations Name Administration [...] enough money to get more: Never True 10/ Transportation Answer Date Recorded In the past [...] Lipid Panel, Standard (02/26/2023 3:32 PM EDT) [facility] Cholesterol, Total 124 (<200) MG/DL [facility] Triglyceride (mg/dL) in Serum/Plasma 116 (<150) MG/DL [facility] HDL Cholesterol 49 (>39) MG/DL [facility] LDL Cholesterol, Calculated 52 (0-130) MG/DL [facility] Non HDL Chol. (LDL+VLDL) 75 (<160) MG/DL [facility] Comment: Testing performed or reported by [facility], a Service of [facility], [address] [place] [id number] Leo Peres MD, Test Consultant [facility]# [id number] Blood Venous blood specimen / Unknown 02/26/2023 3:32 PM EDT 02/26/2023 3:35 PM EDT Peace WARNER LAB BLOOD ORDERABLES Final Resul t [address] [address] * FECAL OCCULT BLOOD, IMMUNOCHEMICAL (11/21/2021 8:36 AM EDT) Fecal Occult Blood, Immunochemical (FIT) NEGATIVE [facility] 11/21/2021 8:36 AM EDT Historical Provider LAB BODY FLUIDS AND STOOL S ORDERABLES Final Result [facility] [address] * Fecal immunochemical (11/21/2021) Fecal Immunoassay Test (External) negative Stool Rectal contents / Unknown us Historical Provider LAB BODY FLUIDS AND STOOL S ORDERABLES Final Result from Last 3 Months or Most Recently Relevant to Health Maintenance Insurance MEDICARE [facility] , [address] [place] [address] * Guarantor: Rajani Hart Account Type Relation to Patient Date of Phone Billing Address Dental Self Care Teams Peoplesoft Administrator Relationship Specialty Start Date End Date Provider, Not In System PCP - General Family Medicine 06/19/23
--- OUTSIDE RECORDS SUMMARY | 2025-01-09 13:22 | XMS_ITS | Data Portability ---
Author Organization [facility], , [facility] Address [address] [place] [address] Care Team Providers Care Performance Improvement Analyst Name Role Phone JYOTHI CLOUD Phys. Med[facility] Re[facility] LESLI LEIGH Tractor Operator Assessment Encounter Date Assessment Date Assessment LastModified by Organization Details LastModified Time 05/06/2022 05/06/2022 Dolly is feeling much better and she has been able to roll in bed without symptoms. R sided BPPV has resolved and [place]-Hallpike is negative. She has slight symptoms when testing the L. These are less intense and at this time, pt feels that they are not limiting her function. Left side was treated today with BEAD WRAPPER. Pt prefers to D/C despite positive findings on the L and will return if these symptoms should pose any restrictions in her function. D/C PT [email or web address] Not available 05/07/2022 07:57:01 04/03/2023 04/03/2023 IE 04/03/2309/09 Plan: 1 x/week up to 10 visits over 12 weeks Plan to use CPT codes: 28658 Therapeutic Exercise 30945 Neuromuscular ReEducation 67391 Manual 63416 Therapeutic Activity A: Dolly is a 72 [...] Treatments may include (as appropriate/as indicated): Therapeutic exercise(83562)/Ne uromuscular Reeducation (40909)/Manual Therapy (31830)/Therapeuti c Activities (42848)/Self-care management(98980)/ Attended Electrical Stimulation (51320)/PRN modalities/dry needling/Gait Training (11519)/canalith repositioning(9599 2) [email or web address] Not available 01/26/2024 14:35:58 01/28/2024 01/28/2024 Plan: [...] Treatments may include (as appropriate/as indicated): Therapeutic exercise(49921)/Ne uromuscular Reeducation (49283)/Manual Therapy (36880)/Therapeuti c Activities (72569)/Self-care management(15974)/ Attended Electrical Stimulation (87946)/PRN modalities/dry needling/Gait Training (45985)/canalith repositioning(9599 2) [email or web address] Not available 01/28/2024 16:25:25 01/05/2025 01/05/2025 Plan: 1-2 x/week decreasing frequency as emma for 8 weeks from 01/04/25 Impression: mechanical low back pain. Exam findings: L/s AROM Grossly 25% restricted throughout Hip AROM WFL throughout LE dermatomes: WNL and symmetrical to light touch LE myotomes/other strength tests: 5/5 throughout B LEs except glutes med/max (deferred) Special tests: SLR: neg bilat Palpatory findings: Lumbar spring testing: tender throughout Functional limitations include: difficulty walking, negotiating stairs, and lifting/carrying Response to treatment: no worse with posterior pelvic tilt exercise instruction Skilled PT is reasonable and indicated to address exam findings and maximize safe pain-free level of function. Next visit: review posterior pelvic tilt and practice application with hip hinging Goals: STG/LTG Time to Achieve Goal Progress per IE Comment STG 4 weeks Average pain improved from 7/10 to <4/10 new STG 4 weeks Able to walk for exercise at least 15 minutes without increased pain new LTG 8 weeks Patient-Specific Functional Scale improved from 6/10 to <3/10 for walking new LTG 8 weeks Patient-Specific Functional Scale improved from 10/10 to <4/10 for lifting anything of any substantial weight new LTG 8 weeks Patient-Specific Functional Scale improved from 5/10 to <2/10 for stairs new LTG 8 weeks Oswestry LBP Disability Questionnaire score <16% new LTG 8 weeks Independent in comprehensive HEP. new Treatments may include (as appropriate/as indicated): Therapeutic exercise(59165)/Ne uromuscular Reeducation (77674)/Manual Therapy (74744)/Therapeuti c Activities (80595)/Self-care management(30077)/ Attended Electrical Stimulation (73548)/PRN modalities/dry needling/Gait Training (73984)/canalith repositioning(9599 2) [email or web address] Not available 01/05/2025 17:40:13 Plan of Treatment Reminders Order Date Submit Date Provider Last Modified By Organization Details Last Modified Time Details Appointments Follow Up, 2024 04:30P M CHRISTOPHER LIN, PT Not available Not available Not available Follow Up, 2024 02:00P M CHRISTOPHER LIN, PT Not available Not available Not available Follow Up, 2024 10:30A M CHRISTOPHER LIN, PT Not available Not available Not available Follow Up, 2024 10:30A M CHRISTOPHER LIN, PT Not available Not available Not available Follow Up, 2024 02:00P M CHRISTOPHER LIN, PT Not available Not available Not available Lab None record ed. Referral None record ed. Procedures None record ed. Surgeries None record ed. Imaging None record ed. Medication Orders None record ed. Patient TargetsNo targets recorded. Patient InstructionsNo instructions recorded. Reason for Referral None Reported. Results Created Date Observation Date Name Description Value Unit Range Abnormal Flag Note LastModifiedBy Organization Detail LastModifiedTime 08/01/2007/30/2022 MAMMO , scree peng, tomos ynthe sis, [...] Physic hernando: Mary Ann Oliver ms [facility] (Imaging) [address] , [place], [address], 08/01/2022 10:24:55 01/07/2006/08/2024 XR, thora cic spine , 3 view No observ ation record ed. [address], [address], 01/06/2025 16:01:26 01/07/20 25 05/25/2024 XR, pelvi s, 3 or more view No observ ation record ed. [address], [address], 01/06/2025 16:01:27 01/07/20 25 05/25/2024 XR, lumba r spine No observ ation record ed. [address], [address], 01/06/2025 16:01:27 01/07/20 25 09/01/2024 MRI, lumba r spine , w/o contr ast No observ ation record ed. [address], [address], 01/06/2025 16:01:27 01/07/20 25 07/01/2024 bone densi ty No observ ation record ed. [address] [facility] [address] [place], [address], 01/06/2025 16:01:27 Result Notes None recorded. Problems Name Problem SNOMED Code Status Onset Date Resolution Date Notes Provider Name and Address Organization Details Recorded Time Measuremen t finding outside reference range 438184907 Completed 07/20/2013 Not Available [facility] 3 02:03:25 Benign essential hypertensi on 5490711 [facility] 6 08:43:18 Pain of multiple joints 16970269 Completed 07/20/2013 Not Available [facility] 3 02:02:27 Primary fibromyalg ia syndrome 56549740 Active Not Available [facility] 3 03:15:35 Posterior rhinorrhea 15095826 Completed 12/25/2016 Peace Ruano NP [address] [place] [address], , [facility] 7 13:02:33 Dizziness 128534479 Completed 07/20/2013 Not Available [facility] 3 02:02:09 Raynaud's disease 591826474 Completed 12/25/2016 Peace Ruano NP [address] [place] [address], , [facility] 7 13:02:22 Limited systemic sclerosis 038047070 Active Lesli Leigh MD [address] [place] [address], , [facility] 6 08:40:52 Paronychia 01322195 Completed 12/25/2016 Peace Ruano NP [address] [place] [address], , [facility] 7 13:02:26 Finger ulcer 565357124 Completed 12/25/2016 Peace Ruano NP [address] [place] [address], , [facility] 7 13:02:28 Raynaud's phenomenon 382613644 Active Lesli Leigh MD [address] [place] [address], [address] , [facility] 6 08:40:52 Benign paroxysmal positional vertigo 204305157 Active 2017 Peace Ruano, COMPETITIVE INTELLIGENCE ANALYST [address] [place], [address] , [facility] 8 13:35:50 Problem Notes None recorded. Procedures Surgical History Date Name Laterality Status Provider Name and Address Organization Details Recorded Time 01/06/20 25 Physical Activity Counselling completed SHANTAL LIN, PT [address] [place], [address], [facility] 01/04/2025 14:28:58 01/06/20 25 67351: PT Eval Low Complexity completed SHANTAL LIN, PT [address] [place], [address], [facility] 01/04/2025 14:28:47 01/06/20 25 Treatment and Advice completed SHANTAL LIN, PT [address] [place], [address], [facility] 01/05/2025 14:17:38 01/28/20 24 Neuromuscular re-education completed SHANTAL LIN, PT [address] [place], [address], [facility] 01/28/2024 16:24:21 01/28/20 24 Treatment and Advice completed SHANTAL LIN, PT [address] [place], [address], [facility] 01/28/2024 16:11:11 01/26/20 24 Physical Activity Counselling completed SHANTAL LIN, PT [address] [place], [address], [facility] 01/26/2024 11:19:50 01/26/20 24 71902: PT Eval Low Complexity completed SHANTAL LIN, PT [address] [place], [address], [facility] 01/26/2024 11:19:54 01/26/20 24 Treatment and Advice completed SHANTAL LIN, PT [address] [place], [address], [facility] 01/26/2024 11:41:10 04/03/20 23 Smoking Cessation Counselling completed Jyothi Cloud, PT [address] [place], [address], [facility] 04/03/2023 11:46:14 04/03/20 23 Physical Activity Counselling completed Jyothi Cloud, PT [address] [place], [address], [facility] 04/02/2023 16:34:25 04/03/20 23 63474: PT Eval Low Complexity completed Jyothi Cloud, PT [address] [place], [address], [facility] 04/02/2023 16:34:25 04/03/20 23 Treatment and Advice completed Jyothi Cloud, PT [address] [place], [address], [facility] 04/03/2023 15:01:47 04/28/20 22 Physical Activity Counselling completed Joanna Thurman, PT [address] [place], [address], [facility] 04/28/2022 11:56:57 11/27/19 22 Physical Activity Counselling completed Joanna Thurman, PT [address] [place], [address], [facility] 11/26/2021 09:01:22 01/01/20 19 Medicare Wellness Visit completed Lenora Johnson [facility] 12/31/2018 09:30:08 12/24/19 19 Toenail Avulsion completed Georgina Joshi, DPM [address] [place], [address], [facility] 12/24/2018 07:47:50 11/26/19 19 Physical Activity Counselling completed Joanna Thurman, PT [address] [place], [address], [facility] 11/26/2018 08:09:43 07/12/20 18 Physical Activity Counselling completed Joanna Thurman, PT [address] [place], [address], [facility] 07/12/2018 16:58:41 03/10/20 18 Physical Activity Counselling completed Che Woods [address] [place], [address], [facility] 03/11/2018 07:19:23 03/10/20 18 78770: PT Eval, Moderate [place], [address], [facility] 03/11/2018 07:19:32 12/30/19 18 Medicare Wellness Visit completed Annie Renteria [facility] 12/29/2017 13:21:17 11/12/19 18 Physical Activity [place], [address], [facility] 11/11/2017 13:04:00 11/12/19 18 87538: PT Eval Low [place], [address], [facility] 11/11/2017 13:04:00 07/21/20 17 Physical Activity Counselling [place], [address], [facility] 07/21/2017 19:51:12 07/21/20 17 52839: PT Eval Low [place], [address], [facility] 07/21/2017 19:51:12 12/27/19 17 80245: Therapeutic Exercise completed Jyothi Cloud, PT [address] [place], [address], [facility] 12/26/2016 13:14:34 12/27/19 17 89841: Ultrasound (1:1) completed Jyothi Cloud, PT [address] [place], [address], [facility] 12/26/2016 13:14:34 12/24/19 17 78928: Therapeutic Exercise completed Jytohi Cloud, PT [address] [place], [address], [facility] 12/23/2016 13:48:37 12/24/19 17 19481: Ultrasound (1:1) completed Jyothi Cloud, PT [address] [place], [address], [facility] 12/23/2016 13:48:21 12/17/19 17 59385: Therapeutic Exercise completed Jyothi Cloud, PT [address] [place], [address], [facility] 12/16/2016 22:06:28 11/27/19 17 Physical Activity Counselling completed Jyothi Cloud, PT [address] [place], [address], [facility] 11/26/2016 10:36:36 11/27/19 17 07331: PT Josefina, Moderate Complexity completed Jyothi Cloud, PT [address] [place], [address], [facility] 11/26/2016 21:17:20 07/14/20 16 Physical Activity Counselling completed Che Woods [address] [place], [address], [facility] 07/14/2016 21:45:18 06/17/20 16 Medicare Wellness Visit completed Nuha Sanchez RN [facility] 06/17/2016 08:19:35 03/31/20 16 12931: PT Evaluation completed Enrique Zaman, PT [address] [place], [address], [facility] 03/31/2016 14:00:35 03/28/20 16 POC Strep Testing completed Imelda Godinez MA [facility] 03/31/2016 11:15:45 04/25/20 15 33439: Therapeutic Exercise completed Jyothi Cloud, PT [address] [place], [address], [facility] 04/25/2015 12:45:33 04/25/20 15 47521: Manual Therapy completed Jyothi Cloud, PT [address] [place], [address], [facility] 04/25/2015 12:45:33 04/18/20 15 86728: PT Evaluation completed Jyothi Cloud, PT [address] [place], [address], [facility] 04/18/2015 12:46:49 08/22/20 14 Incise and Drain with packing completed Peace Ruano, COMPETITIVE INTELLIGENCE ANALYST [address] [place], [address], [facility] 08/22/2014 14:22:12 Imaging Results Imaging Date Name Status LastModified by Organiz ation Details LastModified Time 07/30/2022 MAMMO, screening, tomosynthesis, bilateral completed [facility] ([facility]) [address] , [place], [address], 08/01/2022 10:24:55 06/08/2024 XR, thoracic spine, 3 view completed [address], [address], 01/06/2025 16:01:26 05/25/2024 XR, pelvis, 3 or more view completed [address], [address], 01/06/2025 16:01:27 05/25/2024 XR, lumbar spine completed [address], [address], 01/06/2025 16:01:27 09/01/2024 MRI, lumbar spine, w/o contrast completed [address], [address], 01/06/2025 16:01:27 07/01/2024 bone density completed [address] [facility] [address] [place] [address] [place], [address], 01/06/2025 16:01:27 Procedure Notes None recorded. Medical Equipment None Reported. Allergies Allergen ID Allergen Name Allergen Category Reaction Reaction Severity Criticality Documentation Date Start Date Code Code System Note Provider Name and Address Organization Details Recorded Time 181962 propranol ol medicatio n Not available Not available Not available 04/15/2013 8787 RxNorm dizzy at lowes t dose Glenis Slade PA-C [address] [facility], [place], [address], [facility] 3 07:44:52 09508 codeine medicatio n Not available Not available Not available 02/06/2012 4620 RxNorm felt like she was going to Latasha Domínguez [facility] 3 11:34:42 Medications Name Sig Start [...] bromide 42 mcg (0.06 %) nasal spray [place] 2 sprays 3 times a day by [...] Social History Question Answer Notes LastModified by Organizat ion Details LastModified Time Tobacco Smoking Status Former Smoker Maegan Chavez LPN [facility] 02/06/2012 14:55:41 Do You Have An Advance Directive? No Discussed And Gave Form 01/02/2014. Sc Information not available 01/02/2014 Do You Wear A Helmet When Biking? [...] You Used? None Information not available 01/25/2015 Education 4 Year College Information not available 01/25/2015 How Many Days In The Past Year [...] In Home Yes Information not available 01/02/2014 How Much Tobacco Do You Smoke? No Information not available 04/04/2019 General Stress Level Low Information not available 01/25/2015 Do You Use Sunscreen Routinely? Yes Information not available 01/02/2014 Sex: Unknown Functional Status Question Answer Note LastModified by Organizat ion Details LastModified Time What is your level of alcohol consumption? None [email or web address] Information not available 11/18/2012 Do you or have you ever used smokeless tobacco? Never used smokeless tobacco Information not available 04/04/2019 Do you have difficulty walking or climbing stairs? No Information not available 01/02/2014 Do you have difficulty doing errands alone? 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 No Information not available 01/02/2014 Do you or have you ever used e-cigarettes or vape? Never used electronic cigarettes Information not available 04/04/2019 Mental Status Question Answer Note LastModified by [...] virus, quadrivalent, PF 4 completed Not Available [facility] 09/17/2019 02:18:56 Influenza, split virus, trivalent, PF 4 completed Not Available [facility] 09/17/2019 02:31:43 zoster live 4 completed Not Available [facility] 09/17/2019 02:16:36 Tdap 5 completed Not Available [facility] 09/17/2019 02:19:26 Influenza, split virus, quadrivalent, PF 5 completed Not Available [facility] 09/17/2019 02:25:39 Td(adult) unspecified formulation 4 [facility] 11/05/2012 11:05:45 Influenza, high-dose, trivalent, PF 6 completed Not Available [facility] 09/17/2019 02:21:05 Influenza, high-dose, trivalent, PF 8 completed Not Available [facility] 09/17/2019 02:35:35 Influenza, high-dose, trivalent, PF 9 completed Not Available [facility] 09/17/2019 02:25:35 Past Encounters Encounter ID Performer Location Encounter Start Date Encounter Closed Date Diagnosis/Indication Diagnosis SNOMED-CT Code Diagnosis ICD10 Code Diagnosis Note [id number] Lesli Leigh MD Rheumatol rosangela, [facility] [address] [place] [address] 02/06/2012 14:37:13 02/09/2012 08:16:56 [id number] Lesli Leigh MD Rheumatol rosangela, [address] [address] 03/08/2012 15:44:48 03/08/2012 16:12:52 [id number] Lesli Leigh MD Rheumatol rosangela, [address], [place] [address] 08/09/2012 07:58:37 08/16/2012 08:50:53 [id number] SUNNY Pham, [facility], OFFICE [address] [place], [place] [address] 11/04/2012 11:15:14 11/04/2012 13:42:01 [id number] SUNNY Pham, [facility], OFFICE [address] [place], [place] [address] 11/18/2012 16:14:15 11/19/2012 07:57:17 [id number] SUNNY Pham, [facility], OFFICE [address] [place], [place] [address] 11/30/2012 14:08:06 12/01/2012 07:49:12 [id number] [facility], [place] [address] [address] [place], [place] [address] 12/01/2012 09:56:09 12/02/2012 09:24:43 [id number] [facility], [address], [place] [address] 12/13/2012 09:52:08 12/14/2012 07:42:08 [id number] SUNNY Pham, [facility], OFFICE [address], [place] [address] 12/17/2012 08:28:56 12/17/2012 09:27:12 Screening mammography [id number] SUNNY Pham, [facility], OFFICE [address] [place], [place] [address] 02/03/2013 09:46:53 02/03/2013 10:54:35 [id number] SUNNY Pham, [facility], OFFICE [facility] [address] [place], [place] [address] 02/17/2013 08:57:54 02/17/2013 09:34:44 [id number] SUNNY Pham, [facility], OFFICE [address] [place] [address] [place], [place] [address] 03/10/2013 07:07:22 03/10/2013 07:45:07 [id number] Glenis Slade PA-C , [facility], OFFICE [address] [place] [address] 04/15/2013 07:18:02 04/15/2013 07:42:12 Benign essential hypertension 3438957 Well controlled today with good rate control as well. She is back on Metoprolol alternatin g 1 tab 1/2 tab qod. Diltiazem >> dizziness, Gage >> good pressure control but no rate control. Will stay with this for now. F/U prn. Raynaud's disease 772196614 Now has 3 cold fingers. Recommend trial of acupunctur e - she has seen Lana Fairbanks in the past and likes her very much. Agrees to try. Will f/u with outcome and I will continue to investigat e other possible causes. Dizziness 451121699 Cont inues. Meclizine continues to help. Try acupunctur e. If to no avail, may consider imaging as this has continued for quite awhile - ?sinuses, ?neck. [id number] [facility], [address] [place] [address] 05/23/2013 09:24:44 05/26/2013 09:02:53 Benign paroxysmal positional vertigo [id number] [id number] Che Woods Physical [facility], [address] [place] [address] 05/30/2013 14:59:03 06/01/2013 14:06:23 Benign paroxysmal positional vertigo 124346801 [id number] Che Woods Physical [facility], [address] [place] [address] 06/02/2013 07:50:52 06/03/2013 08:12:15 Benign paroxysmal positional vertigo 027740388 [id number] Che Woods Physical [facility], [address] [place] [address] 06/08/2013 10:00:19 06/09/2013 08:19:39 Benign paroxysmal positional vertigo 558410697 [id number] Lesli Leigh MD Rheumatol rosang[facility], [address] [place] [address] 08/19/2013 10:39:26 08/22/2013 10:10:10 Raynaud's disease 082183467 This patient has developed Raynaud's over the [...] in 6 months. Limited sy stemic sclerosis 421156144 At this point incomplet e CREST syndrome . [id number] Peace Ruano NP FP, [facility], OFFICE [address] [facility] [place] [address] 09/15/2013 09:05:33 09/15/2013 09:56:59 Benign paroxysmal positional vertigo 988669831 Ongoing. Will see Beatrice Woods for eval and treatment. Continue to use meclizine as directed. Stay hydrated. Carpal [place] jason syndrome 73005528 Exam consistent with mild-moder ate carpal tunnel. Reviewed conservati ve vs aggressive treatment - injections , surgery. Will start with braces at nighttime and using ice bid. She can also use NSAIDS prn. Call or RTO if sxs persist/wo rsen. Nasal congestion 89780482 Allergies vs chronic sinusitis? Start Flonase. Continue nasal saline, claritin. [id number] RICO Quinones, [facility], OFFICE [address] [place] [address] 10/27/2013 10:03:07 10/27/2013 11:03:06 Influenza vaccine needed [id number] 106 Paronychia 65175774 Xray to r/o continued presence of foreign body. Start cephalexin as directed. Advised warm soaks with Epsom salt at least bid-tid. RTO if sxs persist/wo rsen. [id number] Che Woods Physical [facility], [address] [address] 12/19/2013 15:24:50 12/19/2013 16:11:32 Benign paroxysmal positional vertigo 135393225 [id number] Che Woods [facility], [address] [address] 12/21/2013 17:13:35 12/22/2013 08:19:10 Benign paroxysmal positional vertigo 800352328 [id number] Che Woods [facility], [address] [address] 12/27/2013 14:54:41 12/28/2013 16:20:22 Benign paroxysmal positional vertigo 779573363 [id number] Peace Ruano NP , [facility], OFFICE [address] [facility] [place] [address] 01/02/2014 08:21:00 01/02/2014 09:17:37 Adult health examination 129178738 pap done today, mammogram due 2014, colonoscop y due now, tdap and zostavax given today. Pt counselled on diet, exercise, appropriat e calcium intake, and stress management . see Risk Assessment and Lifestyle Change Counseling section above Screening for malignant neoplasm of colon 465874824 Varicella vaccination 59749552 Administra tion of diphtheria, pertussis, and tetanus vaccine 352430960 Screening for malignant neoplasm of cervix 023671034 Benign ess ential hypertension 6465638 Well controlled , below goal of under 140/90. Can cut back metoprolol to every other day. Continue to monitor BP at home, may be able to d/c completely . Hypothyroidism 96311212 Due for labs. She is feeling some palpitatio ns, so may be over compensate d. Will check labs and f/u with results. If palpitatio ns continue, consider holter monitor. [id number] [facility], [address] [place] [address] 07/03/2014 13:01:38 07/04/2014 19:55:43 Pain of hip region 65710592 [id number] Peace Ruano NP FP, [facility], OFFICE [address] [place] [address] jo, [place] [address] 07/04/2014 07:58:34 07/04/2014 08:30:29 Influenza vaccine needed [id number] 106 Varicella vaccination 28023972 Benign ess ential hypertension 5009503 Well controlled , at goal of <140/90. Continue medication s as directed. Excellent work with diet & exercise. Hypothyroidism 48865096 Due for labs. She is feeling some palpitatio ns, so may be over compensate d. Will check labs and f/u with results. If palpitatio ns continue, consider holter monitor. [id number] [facility], [address] [place] [address] 07/06/2014 08:31:30 07/07/2014 12:32:29 Pain of hip region 68072512 [id number] [facility], [address] [place] [address] 1 07/13/2014 15:06:16 07/13/2014 16:21:42 Pain of hip region 28795372 [id number] [facility], [address] [place] [address] 07/20/2014 09:27:05 07/21/2014 08:20:11 Pain of hip region 13944997 [id number] Peace Ruano NP FP, [facility], OFFICE [address] [place] [address] [place] [address] 08/22/2014 13:55:53 08/22/2014 14:19:51 Onychia 777982254 Keep clean and dry. Wound care instructio ns reviewed. Continue to soak with Epsom salt and warm water. Will f/u with culture results. [id number] MD MANUELA Wilkinson, [facility], OFFICE [address] [place] [address] [place] [address] 1 09/11/2014 14:07:15 09/11/2014 14:56:24 Paronychia of finger 431661817 rt 4th finger./ mild recurrent / grew citrobacte r last time/ will try Bactrim/ has chronic component all nails? refer dermatolog y [id number] Peace Ruano NP FP, [facility], OFFICE [address] [facility] [place] [address] 1 01/25/2015 13:19:27 01/25/2015 14:20:09 Screening for malignant neoplasm of colon 430455345 Screening mammography 25310402 Adult heal th examination [id number] see Risk Assessment and Lifestyle Change Counseling section above Administra tion of diphtheria, pertussis, and tetanus vaccine 066971770 [id number] Fanny Villar NP FP, [facility], OFFICE [address] [facility] [place] [address] 1 04/17/2015 08:54:07 04/17/2015 09:21:59 Lifestyle 739775305 Sciatica 44461289 [id number] Jyothi Cloud, PT Physical Therapy, [address] [address] 04/18/2015 10:08:11 04/18/2015 16:11:08 Pain of hip region 17980389 Sciatica 31795364 Inflammati on of sacroiliac joint 55342651 [id number] Jyothi Cloud, PT Physical Therapy, [address] [address] 1 04/25/2015 08:36:09 04/26/2015 08:47:50 Pain of hip region 71556659 Sciatica 65445535 Inflammati on of sacroiliac joint 78605107 [id number] Peace Ruano NP FP, [facility], OFFICE [address] [facility] [place] [address] 1 05/16/2015 14:21:12 05/16/2015 15:02:05 Influenza vaccine needed 1064762297 106 Onychomycosis 021170397 Noted Id reaction, I suspect a fungal infection. Reviewed soaking with Epsom salts, and keeping skin clean & dry. Use of clotrimazo le and oral fluconazol e reviewed. Discussed risks, benefits, side effects, and limitation s of medication . Lifestyle 244133102 [id number] RICO Quinones, [facility], OFFICE [address] [place] [address] 1 06/07/2015 14:19:45 06/07/2015 14:52:54 Onychomycosis 301794980 B35.1 Continued Id reaction, I suspect an ongoing fungal infection. Reviewed soaking with Epsom salts, and keeping skin clean & dry. Use of clotrimazo le and oral terbinafin e reviewed. Discussed risks, benefits, side effects, and limitation s of medication . Consulted with BWW on case. [id number] [facility], [address] [address] 06/21/2015 07:50:12 06/21/2015 10:45:22 Benign paroxysmal positional vertigo 324846812 H81.13 [id number] [facility], [address] [address] 1 06/25/2015 12:54:48 06/25/2015 18:04:06 Benign paroxysmal positional vertigo 981091285 H81.13 [id number] Peace Ruano NP FP, [facility], OFFICE [address] [place] [address] 1 07/05/2015 14:11:01 07/05/2015 15:37:21 Benign essential hypertension 3989806 I10 Well controlled , at goal of <140/90. Encouraged increased activity, weight loss, heart healthy diet. continue medication s as directed. Raynaud's disease 185120 006 I73.00 Very likely part of a CREST-like picture. Has f/u with Dr. Leigh tomorrow. [id number] Lesli Leigh MD Rheumatol [facility], [address] [address] 07/06/2015 08:41:00 07/16/2015 07:48:13 Raynaud's disease 848319415 I73.00 Basically stable pattern of Raynaud's, but she has been getting a recurrent paronychia l sore right index finger. With the cold weather ceferinoin owen, I think we should try again with the amlodipine . She can start at just half a tablet and increase to 2.5 mg daily after a week or 2. If she does not tolerate that, I would suggest we might want to try Prozac. Also discussed dressing warm etc. Limited sy stemic sclerosis 010599435 M34.9 Limited scleroderm a with features that [...] to monitor for pulmonary hypertensi on. Paronychia 32609637 L03. 637 [id number] Lesli Leigh MD Rheumatol ogy, [facility] [address] [place] [address] 1 09/07/2015 08:44:36 09/07/2015 12:07:26 Limited systemic sclerosis 118894620 M34.9 Limited scleroderm a with features that include Raynaud's, mild sclerodact yly, telangiect shayan, symptoms of mild esophageal dysmotilit y. She has a high titer anticentro mere antibody. Had normal echocardio gram (the ecchocardi ogram report suggested R heart catheteriz ation, but this is not clinically indicated) . Routine f/u 6 mo. Finger ulcer 944811550 L 98.499 Distal digital ulceration R middle [...] if any worsening Raynaud's. Raynaud's phenomenon 266 510620 I73.00 [id number] [facility], [facility] [address] [place] [address] 10/02/2015 09:31:48 10/03/2015 23:23:19 Benign paroxysmal positional vertigo 518259133 H81.13 [id number] Peace Ruano NP , [facility], OFFICE [address] [place] [address] 1 03/28/2016 10:30:17 03/28/2016 11:39:24 Acute upper respiratory infection 69255146 J06.9 Educated patient that URI is a [...] resolve in 2-4 weeks. Coxsackie virus disease 015986165 B34.1 Viral infection, very likely hand foot and mouth disease. Reviewed supportive care and return precaution s. [id number] Belkis Tabares MD , [facility], OFFICE [address] [facility] [address] 03/29/2016 09:56:21 03/29/2016 10:42:35 Spasm of back muscles 321488469 M62.830 We reviewed the basic pathophysi ology [...] motrin 600 mg three times a day [id number] Enrique Zaman, PT Physical Therapy, [address] [place] [address] 03/31/2016 13:37:00 04/01/2016 08:39:49 Low back pain 871336458 M54.5 Pain of sa croiliac joint 699178379 M53.3 [id number] Peace Ruano, COMPETITIVE INTELLIGENCE ANALYST FP, [facility], OFFICE [address] [facility] [place] [address] 1 04/07/2016 11:48:34 04/07/2016 13:29:[address] was negative in Trthe ED, but pt has continued sinus congestion , sore throat, PND. Empiric tx with abx as nothing else is working. Reviewed medication risks, benefits, side effects, and limitation s. Anti-nucle ar factor detected 385681925 R76.8 Grossly positive CLIFF drawn in 07/2015. Now in the context of elevated ESR, ? positive blood culture, and pharyngiti s. Will check back with rheumatolo gy for further eval and rx. [id number] Lesli Leigh MD Rheumatol og, [address] [place] [address] 1 04/16/2016 08:55:37 04/16/2016 09:34:02 Limited systemic sclerosis 137454011 M34.9 Limited scleroderm a with features that [...] be followed. Routine f/u 6 mo. Pneumonitis 711524950 J1 2.9 Recent small RML consolidat ion on CXR. Repeat in about 2 weeks. Raynaud's phenomenon 266 018206 I73.00 Continue Amlodipine . Used some NTG ointment las winter. Primary fi bromyalgia syndrome 29014168 M79.7 The patient has some fairly mild diffuse musculoske letal pains associated with a prominent sleep disruption . At the moment she is not bothered much, has fair energy and feels well.Encou raged regular exercise, return for this as needed.. [id number] Pecae Ruano NP FP, [facility], OFFICE [address] [place] [address] [place] [address] 06/17/2016 08:15:19 06/17/2016 09:12:56 Adult health examination 469669779 Z00.00 see Risk Assessment and Lifestyle Change Counseling section above Counseling 585674971 Z71 .9 Encouraged increased activity and joining a gym, pt agreeable and plans to join a gym, will continue to eat a low fat and vegan diet, also encouraged mediterran marion diet Active or passive immunization 352210730 Z23 Subconjunc tival hemorrhage 11652388 H11.31 Asymptomat ic, instructed if unresolved in 10 days to F/U Benign ess ential hypertension 7568186 I10 BP at goal, [facility] [id number] [facility], [address] [place] [address] 07/14/2016 15:50:36 07/15/2016 08:06:45 Benign paroxysmal positional vertigo 977578577 H81.13 [id number] [facility], [address] [place] [address] 1 07/31/2016 11:14:06 08/04/2016 07:42:56 Benign paroxysmal positional vertigo 225189149 H81.13 [id number] Che Woods [facility], [address] [place] [address] 1 08/06/2016 16:20:02 08/07/2016 10:57:56 Benign paroxysmal positional vertigo 649760574 H81.13 [id number] Che [facility], [address] [place] [address] 1 08/21/2016 07:51:48 08/21/2016 16:07:07 Benign paroxysmal positional vertigo 042576465 H81.13 [id number] [facility], [address] [place] [address] 1 09/15/2016 09:22:57 09/15/2016 15:40:37 Benign paroxysmal positional vertigo 941935043 H81.13 [id number] Enrique Jones MD FP, [facility], OFFICE [address] [place] [address] 1 09/18/2016 08:45:46 09/18/2016 09:28:05 Palpitations 51568354 R00.2 continue to avoid caffeine, sudafed, holter in past unrevealin g, followup as needed. Discussed exercise. Obesity 211281240 E66.9 retiring next week, discussed Y program [id number] Jyothi Cloud, [facility], [address] [place] [address] 1 11/26/2016 10:06:14 11/27/2016 08:07:38 Low back pain 313126575 M54.5 Pain of sa croiliac joint 981854742 M53.3 [id number] Ambrocio Baugh MD Sports Medicine, [address] [place] [address] 12/04/2016 13:20:22 12/05/2016 09:20:39 Pain of hip region 86572409 M25.551 M25.552 Rajani is a 66-year-ol d [...] a trochanter ic bursa corticoste roid injection. [id number] Jyothi Cloud, PT Physical Therapy, [address] [address] 12/16/2016 16:10:26 12/17/2016 13:16:15 Low back pain 836965805 M54.5 Pain of sa croiliac joint 259444689 M53.3 [id number] Jyothi Cloud PT Physical Therapy, [address] [address] 12/23/2016 13:06:34 12/23/2016 14:08:48 Low back pain 883088875 M54.5 Pain of sa croiliac joint 525552950 M53.3 [id number] Peace Ruano NP FP, [facility], OFFICE [address] [place] [address] [place] [address] 1 12/25/2016 12:38:08 12/25/2016 13:16:45 Limited systemic sclerosis 412443670 M34.9 Sxs improved with use of CCB. Continue. Will f/u with rheumatolo gy as directed. Benign ess ential hypertension 6992132 I10 BP at goal of <140/90. Continue diet, exercise, medication s. [id number] Jyothi Cloud PT Physical Therapy, [address] [place] [address] 1 12/26/2016 12:57:05 12/26/2016 14:20:48 Low back pain 388647578 M54.5 Pain of sa croiliac joint 099929035 M53.3 [id number] Jyothi Cloud PT Physical Therapy, [address] [place] [address] 1 12/26/2016 14:53:31 12/26/2016 14:53:47 [id number] Belkis Tabares MD , [facility], OFFICE [address] [place] [address] 01/13/2017 13:02:05 01/13/2017 16:52:17 Acute allergic serous otitis media 27229458 H65.119 Tincture of time - acute serous [...] helpful. RTC if pain or fevers develop. [id number] TIMMY Narayanan, [facility], OFFICE [address] [place] [address] 05/06/2017 15:02:11 05/06/2017 15:30:13 Hypothyroidism 15575879 E03.9 Pt very fatigued latelyLast TSH 4.79 in 2014Taking levothyrox ine 75 mcgWill check TSH today and follow up with result and plan of care as needed Benign ess ential hypertension 8885635 I10 Well-contr olled on HCTZ and amlodipine , but with potential side effects of amlodipine , including dizziness and bilateral foot edemaWill trial amlodipine 2.5 mg daily, and she will return to Dr Leigh to discuss repeat echo and changing medication for rate control [id number] Lesli Leigh MD Rheumatol ogy, [address] [address] 05/25/2017 13:32:18 05/25/2017 16:45:06 Limited systemic sclerosis 899008380 M34.9 Limited scleroderm a with features that include Raynaud's, mild sclerodact yly, telangiect shayan, symptoms of mild esophageal dysmotilit y. She has a high titer anticentro mere antibody. Had normal echocardio gram. No change in any symptoms. Did have digital ulceration last October, slowly healed. Will update labs. Routine f/u 6 mo. Tachycardia 4432374 R00. 0 Actually upper normal HR, generally [...] when weather gets cooler. Raynaud's phenomenon 266 363054 I73.00 See above. Digital ulcer last October. Resume amlodipine in cooler weather. Used some NTG ointment last winter. Continue careful attention to keeping adequately warm. Bursitis of shoulder 239 409914 M75.51 Rotator cuff tendinitis / bursitis R shoulder.R efer for PT. [id number] [facility], [address] [place] [address] 07/21/2017 08:51:26 07/21/2017 20:28:31 Pain of shoulder region 41499580 M25.511 M25.512 Dizziness 048208283 R42 [id number] Lesli Leigh MD Rheumatol ogy, [address] [address] 07/31/2017 09:54:36 07/31/2017 11:14:12 Limited systemic sclerosis 161562811 M34.9 Limited scleroderm a with features that [...] f/u 6 mo. Paronychia of finger 444 821949 L03.019 L 4th finger. The finger itself is well perfused at present, though he has significan t Raynaud's at times and has had digital ulceration in past.Discu ssed treatment paronychia . Soak, Keflex.Als o try Nitro-bid ointment for this one finger to help ensure good perfusion. Raynaud's phenomenon 266 900131 I73.00 See above. Digital ulcer last October. Now paronychia l infection. Continue careful attention to keeping adequately warm. Continue amlodipine . [id number] [facility], [address] [address] 08/03/2017 11:25:35 08/03/2017 12:22:14 Pain of shoulder region 95747465 M25.511 M25.512 Dizziness 894729691 R42 [id number] Che [facility] Physical [facility], [address] [address] 08/06/2017 11:19:10 08/07/2017 09:54:28 Pain of shoulder region 60758645 M25.511 M25.512 Dizziness 617356369 R42 [id number] [facility], [address] [place] [address] 08/25/2017 12:22:51 08/25/2017 12:58:39 Pain of shoulder region 53676530 M25.511 M25.512 Dizziness 036915975 R42 [id number] [facility], [address] [place] [address] 11/11/2017 12:23:27 11/12/2017 16:37:09 Benign paroxysmal positional vertigo 338798186 H81.12 [id number] Peace Ruano NP , [facility], OFFICE [address] [place], [place] [address] [address] 11/12/2017 14:08:00 11/12/2017 16:23:31 Dizziness 605418301 R42 Has appt with PT as well. Screening mammography 24 615298 Z12.31 Acute sinusitis 60882590 J01.90 Pt presents today for evaluation of [...] time. Screening for malignant neoplasm of colon 811714443 Z12.11 [id number] [facility], [address] [place] [address] 11/12/2017 14:34:59 11/12/2017 16:34:28 Benign paroxysmal positional vertigo 773130025 H81.12 [id number] [facility], [address] [place] [address] 11/17/2017 09:22:32 11/17/2017 12:14:15 Benign paroxysmal positional vertigo 817304761 H81.12 [id number] [facility], [address] [place] [address] 12/02/2017 11:22:19 12/02/2017 13:39:38 Benign paroxysmal positional vertigo 886285437 H81.12 [id number] Che [facility], [address] [place] [address] 12/22/2017 12:26:25 12/22/2017 19:48:05 Benign paroxysmal positional vertigo 671281129 H81.12 [id number] Perry Virk Jr. MD , [facility], OFFICE [address] [place] [address] [place] [address] 12/23/2017 10:12:02 12/23/2017 12:20:02 Benign paroxysmal positional vertigo 933087277 H81.13 Hx. of BPPV, likely exacerbate d by recent URI and plane ride. Neuro exam unremarkab le with no red flag symptoms. Already seeing PT for vestibular exams. Has Meclizine. Start Flonase. Advised on home Gin maneuver. Slow position changes. Reviewed ER/return precaution s. [id number] Che [facility], [address] [place] [address] 12/23/2017 12:52:51 12/23/2017 13:50:58 Benign paroxysmal positional vertigo 058315874 H81.12 [id number] [facility], [address] [place] [address] 12/24/2017 11:19:03 12/27/2017 21:15:10 Benign paroxysmal positional vertigo 521868623 H81.12 [id number] Jr. MD MANUELA Power, [facility], OFFICE [address] [place] [address] [place] [address] 12/29/2017 13:16:02 12/29/2017 14:17:05 Adult health examination 700672421 Z00.00 see Risk Assessment and Lifestyle Change Counseling section aboveLabs reviewed Counseling 744412071 Z71 .9 Depression screening 171 669292 Z13.89 depression screening tool administer ed, entered into emr, scored and discussed, time greater than 7.5 minutes Benign ess ential hypertension 9026742 I10 Blood pressure at goal, Continue meds. HR is elevated, chronic per patient. Will continue to monitor and call if ongoing elevation. States that when she exercises it usually will come down overall. Previously on low dose beta adair but does not wish to start again today. Screening for malignant neoplasm of colon 355653973 Z12.11 Reviewed that the gold standard of colorectal cancer screening is a colonoscop y. Patient is not interested in this at this time and would like to do IFOB cards. Discussed that positive test result should then warrant colonoscop y. Also informed patient of importance of annual screening with IFOB cards. Patient verbalizes understand ing to this plan. Acute sinusitis 31919055 J01.90 Pt presents today for evaluation of [...] or worsen at any time. Hypercholesterolemia 136 69341 E78.00 Lipid levels slightly. ASCVD risk of 9.6%. Patient opting to make lifestyle modificati ons and recheck in 6 months over meds. Screening mammography 24 194162 Z12.31 Due to have mammo. Dizziness 037343172 R42 Still suspect BPPV ? if exacerbate d by acute sinusitis. Trial abx, continue PT, follow up later this week. [id number] [facility], [address] [place] [address] 12/29/2017 14:16:43 12/30/2017 07:59:55 Benign paroxysmal positional vertigo 114674550 H81.12 [id number] [facility], [address] [place] [address] 12/31/2017 13:23:45 12/31/2017 14:07:25 Benign paroxysmal positional vertigo 477782092 H81.12 [id number] [facility], [address] [address] 03/10/2018 13:59:23 03/11/2018 12:12:38 Pain of shoulder region 45090403 M25.429 [id number] [facility], [address] [place] [address] 03/22/2018 15:52:29 03/22/2018 16:36:57 Pain of shoulder region 97721494 M25.503 [id number] Joanna Thurman, PT Physical Therapy, [address] [address] 07/12/2018 16:22:54 07/13/2018 09:48:57 Benign paroxysmal positional vertigo 674418119 H81.11 [id number] Joanna Thurman, PT Physical Therapy, [address], [place] [address] 07/14/2018 12:05:50 07/14/2018 14:01:38 Benign paroxysmal positional vertigo 160869271 H81.11 [id number] Peace Ruano NP FP, [facility], OFFICE [address] [place] [address] [place] [address] 07/15/2018 13:01:26 07/15/2018 13:43:13 Benign essential hypertension 5409814 I10 Blood pressure well below goal. Could likely taper off HCTZ, but she finds that this flares up her BPPV. Continue low dose HCTZ, reviewed diet, exercise, hydration, and weight loss. Active or passive immunization 054449569 Z23 Benign par oxysmal positional vertigo 241262454 H81.10 Ongoing. Will see Beatrice Woods for eval and treatment. Continue to use meclizine as directed. Stay hydrated. Suggested acupunctur e for treatment. [id number] [facility], [address] [place] [address] 08/17/2018 11:19:11 08/17/2018 21:10:32 Benign paroxysmal positional vertigo 876834311 H81.12 [id number] Che [facility], [address] [place] [address] 08/19/2018 08:53:11 08/20/2018 21:43:05 Benign paroxysmal positional vertigo 855891848 H81.12 [id number] [facility], [address] [place] [address] 08/26/2018 09:53:12 08/26/2018 16:32:41 Benign paroxysmal positional vertigo 079569649 H81.12 [id number] Peace Ruano NP , [facility], OFFICE [address] [place] [address] [place] [address] 1 11/08/2018 07:28:42 11/08/2018 07:50:11 Onychomycosis 358762766 B35.1 I suspect an ongoing fungal infection. Reviewed soaking with Epsom salts, and keeping skin clean & dry. Use of clotrimazo le and oral terbinafin e reviewed. Discussed risks, benefits, side effects, and limitation s of medication . She opted to not use rx medication at this time, will f/u if sxs persist/wo rsen [id number] Joanna Thurman, PT Physical Therapy, [address] [place] [address] 11/25/2018 10:47:08 11/26/2018 08:18:11 Benign paroxysmal positional vertigo 378691743 H81.12 [id number] Joanna Thurman, PT Physical Therapy, [address] [place] [address] 11/26/2018 09:26:09 11/26/2018 10:25:05 Benign paroxysmal positional vertigo 708452574 H81.12 [id number] Caprice Bonner D.O. , [facility], OFFICE [address] [place] [address] [place] [address] 12/09/2018 10:44:38 12/09/2018 11:19:40 Ingrowing toenail 210078890 L60.0 discussed continue warm soaks until she can see podiatry. Onychomycosis 415520892 B35.1 Pre-surger y evaluation 721370064 Z01.818 low risk for low risk surgery. forms completed and faxed to [facility] . Cataract of left eye 578 5251727 6302024 H26.9 low risk for low risk surgery. forms completed and faxed to [facility] . [id number] Georgina Joshi DPM Podiatry, [address] [place] [address] 12/23/2018 07:44:49 12/23/2018 10:17:20 Ingrowing toenail 792543033 L60.0 right great toe ingrown toenail lateral [...] pain medication prn pain. Pain in toe 076879770 M7 9.077 [id number] Peace Ruano NP , [facility], OFF[facility] [address] [facility] [place] [address] 12/31/2018 09:26:21 12/31/2018 10:18:19 Adult health examination 955351018 Z00.00 see Risk Assessment and Lifestyle Change Counseling section above Counseling 376367722 Z71 .9 Encouraged increased activity and joining a gym, pt agreeable and plans to join a gym, will continue to eat a low fat and vegan diet, also encouraged mediterran marion diet Depression screening 171 849136 Z13.89 depression screening tool administer ed, entered into emr, scored and discussed, time greater than 7.5 minutes Benign ess ential hypertension 6976594 I10 Blood pressure at goal. She feels better with better control and decreased pulse. OK to restart beta adair, continue HCTZ. RTO for recheck in 3 months. [id number] Georgina Joshi DPM Podiatry, [address] [place] [address] 01/05/2019 13:09:59 01/06/2019 13:32:18 Ingrowing toenail 552722109 L60.0 right great toe healing. We await bx results. Pt instructed to soak for another week. Ok to leave toe open to air. RTC prn. I spent 15 mins face to face with patient, more 50% spent in counseling and coordinati on of care. Pain in toe 621056174 M7 9.821 [id number] RICO Quinones, [facility], OFFICE [address] [place] [address], [place] [address] 02/01/2019 14:24:10 02/01/2019 14:45:25 Benign essential hypertension 4581099 I10 Blood pressure at goal. She feels better with better control and decreased pulse. OK to restart beta adair, continue HCTZ. RTO for recheck in 3 months. [id number] RICO Quinones, [facility], OFFICE [address] [facility], [place] [address] 03/01/2019 08:32:48 03/01/2019 09:09:54 Palpitations 70753938 R00.2 EKG revealed occ PAC's. Reviewed benign nature of this condition, monitoring for sxs worsening, and avoiding things like caffeine & etoh. Benign ess ential hypertension [id number] I10 Blood pressure at goal. She feels better with better control and decreased pulse. OK to restart beta adair, continue HCTZ. [id number] RICO Quinones, [facility], OFFICE [address] [place] [address], [place] [address] 04/04/2019 08:47:16 04/05/2019 15:13:04 Benign essential hypertension [id number] I10 Tolerating meds well. BP at goal of <130/90. Continue meds as directed. Schedule PHA and BP check in December 2019. [id number] Caprice Bonner D.O. MANUELA, [facility], OFFICE [address] [place] [address], [place] [phone] 07/07/2019 06:59:44 07/08/2019 06:48:53 Active or passive immunization [id number] Z23 [id number] Joanna Thurman, PT Physical Therapy, [address] [place] [address] 03/18/2021 14:17:44 03/19/2021 09:00:32 Benign paroxysmal positional vertigo [id number] H81.12 [id number] Joanna Thurman, PT Physical Therapy, [address] [place] [address] 1 03/25/2021 08:51:43 03/25/2021 10:50:40 Benign paroxysmal positional vertigo [id number] H81.12 [id number] Joanna Thurman, PT Physical Therapy, [address], [place] [address] 1 03/26/2021 10:52:43 03/26/2021 11:48:09 Benign paroxysmal positional vertigo [id number] H81.12 [id number] Joanna Thurman, PT Physical Therapy, [address] [place] [address] 03/28/2021 09:24:44 03/28/2021 10:20:20 Benign paroxysmal positional vertigo [id number] H81.12 [id number] Joanna Thurman PT Physical Therapy, [address] [place] [address] 1 04/12/2021 08:24:37 04/12/2021 09:25:30 Benign paroxysmal positional vertigo [id number] H81.12 [id number] Joanna Thurman PT Physical Therapy, [address] [place] [address] 1 04/15/2021 14:53:19 04/15/2021 15:45:40 Benign paroxysmal positional vertigo [id number] H81.12 [id number] Joanna Thurman, PT Physical Therapy, [address] [place] [address] 1 04/19/2021 08:27:31 04/19/2021 09:32:27 Benign paroxysmal positional vertigo [id number] H81.12 [id number] Joanna Thurman, PT Physical Therapy, [address], [place] [address] 1 04/29/2021 09:53:42 04/29/2021 11:05:00 Benign paroxysmal positional vertigo [id number] H81.12 [id number] Joanna Thurman, PT Physical Therapy, [address], [place] [address] 1 05/07/2021 07:45:05 05/08/2021 07:52:53 Benign paroxysmal positional vertigo [id number] H81.12 [id number] Joanna Thurman, PT Physical Therapy, [address], [place] [address] 1 05/15/2021 10:50:25 05/15/2021 12:12:27 Benign paroxysmal positional vertigo [id number] H81.12 [id number] Joanna Thurman, PT Physical Therapy, [address], [place] [address] 11/26/2021 08:24:40 11/26/2021 09:31:24 Benign paroxysmal positional vertigo [id number] H81.13 [id number] Joanna Thurman, PT Physical Therapy, [address], [place] [address] 1 11/28/2021 11:26:26 11/28/2021 12:31:18 Benign paroxysmal positional vertigo [id number] H81.13 [id number] Joanna Thurman, PT Physical Therapy, [address], [place] [address] 12/02/2021 10:24:19 12/02/2021 11:05:50 Benign paroxysmal positional vertigo [id number] H81.13 [id number] Joanna Thurman, PT Physical Therapy, [address], [place] [address] 1 12/06/2021 09:23:36 12/06/2021 10:00:25 Benign paroxysmal positional vertigo [id number] H81.13 [id number] Joanna Thurman, PT Physical Therapy, [address], [place] [address] 1 04/28/2022 11:21:21 04/28/2022 12:29:18 Benign paroxysmal positional vertigo [id number] H81.13 [id number] Joanna Thurman, PT Physical Therapy, [address], [place] [address] 1 05/02/2022 09:55:35 05/02/2022 10:53:33 Benign paroxysmal positional vertigo [id number] H81.13 [id number] Joanna Thurman, PT Physical Therapy, [address], [place] [address] 1 05/06/2022 11:42:39 05/07/2022 08:41:59 Benign paroxysmal positional vertigo [id number] H81.13 [id number] Jyothi Cloud, PT Physical Therapy, [address] [place] [address] 04/03/2023 11:14:07 04/03/2023 15:28:29 Left-sided piriformis syndrome [id number] 43199 M54.32 Trochanter ic bursitis of left hip [id number] 78838 M70.62 Inflammati on of sacroiliac joint [id number] M46.1 [id number] DAJA LIN, PT Physical Therapy, [address] [place] [address] 01/26/2024 10:47:07 01/26/2024 14:46:41 Benign paroxysmal positional vertigo [id number] H81.11 [id number] DAJA LIN, PT Physical Therapy, [address] [place] [address] 01/28/2024 15:48:34 01/28/2024 17:01:06 Benign paroxysmal positional vertigo [id number] H81.11 [id number] DAJA LIN, PT Physical Therapy, [address] [place] [address] 01/05/2025 10:42:09 01/06/2025 08:01:34 Mechanical low back pain 282161408 M54.59 Health Concerns Section Related Observation LastModified by Organization Detai ls LastModified Time None Recorded Concern Status LastModified by Organization Details LastModified Time None Recorded Advance Directives Directive N: Discussed and gave form . mi Payers Encounter Date Sequence Insurance Name Policy Number Policy Arizmendi Covered Member ID Arizmendi Member ID Guarantor Name 05/06/2022 2 [facility] - PLAN 1 (MEDICARE SUPPLEMENT) [id number] 01 Rajani Mckeon Hailey [id number] Rajani Hart 05/06/2022 1 MEDICARE B-[place]: [employer] Rajani Mckeon Hailey [id number] Rajani Hart 04/03/2023 2 [facility] - PLAN 1 (MEDICARE SUPPLEMENT) [id number] Rajani Mckeon Hailey [id number] Rajani Hart 04/03/2023 1 MED[place]: [employer] Rajani Collinsi [id number] Rajani Echeverriakoski 01/26/2024 2 [facility] - PLAN 1 (MEDICARE SUPPLEMENT) [id number] Rajani Parikhski [id number] Rajani Echeverriakoski 01/26/2024 1 MED[place]: [employer] Rajani Collinsi [id number] Rajani Echeverriakoski 01/28/2024 2 [facility] - PLAN 1 (MEDICARE SUPPLEMENT) [id number] Rajani Echeverriakoski [id number] Rajani Echeverriakoski 01/28/2024 1 MED[place]ARE [place]: [employer] Rajani Collinsi [id number] Rajani Echeverriakoski 01/05/2025 2 [facility] PLAN 1 (MEDICARE SUPPLEMENT) [id number] Rajani Parikhski [id number] Rajani Echeverriakoski 01/05/2025 1 MED[place]: [facility] Rajani Collinsi [id number] Rajani Parikhski Notes Date Note Type Note Provider Name and Address Organization Details Recorded Time 2 text/html Dolly states that she has been feeling pretty good. I have only felt it once a tiny bit when I was rolling in bed. Joanna Thurman, PT [address] [place] [address], [phone], [facility] 05/07/2022 07:57:17 3 text/html PT Initial Eval*Reported bypatient.Symptom intensity:average 3/10 Symptom duration:occasionally Symptom change:symptoms are getting better Symptom quality:dull; [...] (L3-4 disc space narrowing and calcifications.) Prior Treatments:chiropracti c care (no help); acupressure no help Work:retired Activities/Hobbies/Exe rcise:none; egoscue exercises. Likes crafts Associated Symptoms:no nausea; no vomiting; no fever; no chills; no excessive fatigue; no confusion; no forgetfulness; no dizziness; no lightheadedness; no change in weight; no numbness; no tingling; no changes in urinary habits; no changes in bowel habits; no loss of pleasure or interest in activities; no feeling down or depressed Patient Specific Functional Score:{{10 20 30* 40 5 0 60 70 80 90 100}} Percent limitation in standing still{{10 20 30* 40 50 60 70 80 90 100}} Percent limitation in walking{{10 20 30* 40 50 60 70 80 90 100}} Percent limitation in stairsLBP/L piriformis syndrome and into calf/moran area. Standing still is the worst, walk and stairs challenging, Wt bearing L LE increased pain. X rays done in past. Hx L GT bursitis. No HEP given yet by chiro/acupressure clinicians. Jyothi Cloud, PT [address] [place], [address], [facility] 04/03/2023 15:06:53 4 text/html Pt is a 73 f referred by PCP (Soto STINSON at [facility]) for vertigo. This episode onset a [...] delay arranging treatment in office. Denies new tingling/numbness/weak ness/change in speech/swallowing. Denies change in hearing or vision. PMHx: pacemaker implantation 6 weeks ago d/t heart block+Covid-19 w/15-day hospitalization. On portable oxygen generator, 2L with activity and none at rest or when sleeping. SHANTAL LIN, PT [address] [place], [phone], [facility] 01/26/2024 14:36:17 4 text/html [place] great the first day, and generally speaking, [...] f referred by PCP (Soto STINSON at [facility]) for vertigo. This episode onset a [...] delay arranging treatment in office. Denies new tingling/numbness/weak ness/change in speech/swallowing. Denies change in hearing or vision. PMHx: pacemaker implantation 6 weeks ago d/t heart block+Covid-19 w/15-day hospitalization. On portable oxygen generator, 2L with activity and none at rest or when sleeping. SHANTAL LIN, PT [address] [place] [address], [place], [phone], [facility] 01/28/2024 16:25:36 5 text/html Pt is a 74 yo f referred by PCP Dale Cast MD for low back pain with intermittent numbness in R foot - more toward end of day. Back pain is chronic, but became substantially worse during/after 15-day hospitalization a year ago for covid and complete heart block; tried [facility] but had bad experience and did not return for planned injections. Has not had physical therapy for low back pain specifically, but did have [facility] after hospitalization. MRI 09/01/24 shows moderate central canal stenosis at L3-4, multiple level broad based degenerative disc bulging and degenerative facet changesXrays taken 09/08/23 show moderate degenerative changes B hips & B SI jts; calcifications about pubic rami, hip joints, iliac wings; Partially sacralized L L5 transverse process possibly creating a pseudojoint. Inadequately better with extra-strength Tylenol twice/day, Tramadol twice/day, gabapentin in eveningsWorse with moving from forward-flexed to upright position, walking, lifting anything of substantial weight, ascending or descending stairs. Stopped going grocery shopping d/t all of above, but even lifting bags of delivered groceries is difficult.Tingling/num bness in R foot worse with sitting or getting cold.Relevant PMHx: heart failure with multiple hospitalizations for dyspnea and volume overload, pulmonary hypertension, implanted pacemaker for complete heart block (had covid concurrent with diagnosis resulting in being bed-bound for 15 days), on chronic prednisone for breathing issues per call center support representative, CREST syndrome, osteopenia, anemia, Raynaud's phenomenonRetired from [employer] clerical workRecreation: quilting, crafting, embroidering formerly volunteering at [employer], PT [address], [place], [address], [facility] 01/05/2025 17:40:57 OBGyn Episode No OBEpisode recorded.
--- OUTSIDE RECORDS SUMMARY | 2025-01-09 13:22 | XMS_ITS | Continuity of Care Document ---
Author Organization [facility], Physical Therapy, [facility] Address [address] [place] [address] Care Team Providers Care Roll Forming Supervisor Name Role Phone FILEMON CLOUD Phys. Med. & Rehab KRIS LEIGH Footwear Sales Representative Assessment Encounter Date Assessment Date Assessment LastModified by Organization Details LastModified Time 01/05/2025 01/05/2025 Plan: 1-2 x/week decreasing frequency [...] Treatments may include (as appropriate/as indicated): Therapeutic exercise(64536)/ Neuromuscular Reeducation (17389)/Manual Therapy (57966)/Therapeu tic Activities (40938)/Self-car e management(74115 )/Attended Electrical Stimulation (83158)/PRN modalities/dry needling/Gait Training (14662)/canalith repositioning(95 992) [email or web address] Not available 01/05/2025 17:40:13 Plan of Treatment [...] Abnormal Flag Note LastModifiedBy Organization Detail LastModifiedTime 01/07/2006/08/2024 XR, thora cic spine , 3 view No observ ation record ed. [email or web address] [facility] [address] [place], [address], 01/06/2025 16:01:26 01/07/2005/25/2024 XR, pelvi s, 3 or more view No observ ation record ed. [email or web address] [facility] [address] [place], [address], 01/06/2025 16:01:27 01/07/20 05/25/2024 XR, lumba r spine No observ ation record ed. [facility] [address] [place], [address], 01/06/2025 16:01:27 01/07/20 25 09/01/2024 MRI, lumba r spine , w/o contr ast No observ ation record ed. [facility] [address] [facility], [place], [address], 01/06/2025 16:01:27 01/07/20 25 07/01/2024 bone densi ty No observ ation record ed. [email or web address] [facility] [address] [place], [address], 01/06/2025 16:01:27 Result Notes None recorded. Problems Name Problem SNOMED Code Status Onset Date Resolution Date Notes Provider Name and Address Organization Details Recorded Time Measuremen t finding outside reference range 279997645 Completed 07/20/2013 Not Available [facility] 3 02:03:25 Benign essential hypertensi on 5139557 [facility] 6 08:43:18 Pain of multiple joints 43426348 Completed 07/20/2013 Not Available [facility] 3 02:02:27 Primary fibromyalg ia syndrome 03401920 Active Not Available [facility] 3 03:15:35 Posterior rhinorrhea 61234070 Completed 12/25/2016 Peace Ruano NP [address] [place] [address], [address] , [facility] 7 13:02:33 Dizziness 450974087 Completed 07/20/2013 Not Available [facility] 3 02:02:09 Raynaud's disease 610767990 Completed 12/25/2016 Peace Ruano NP [address] [place] [address], [phone] , [facility] 7 13:02:22 Limited systemic sclerosis 428511909 Active Kris Leigh MD [address] [place] [address], [address] , [facility] 6 08:40:52 Paronychia 75686641 Completed 12/25/2016 Peace Ruaon NP [address] [place] [address], [address] , [facility] 7 13:02:26 Finger ulcer 970464080 Completed 12/25/2016 Peace Ruano NP [address] [place] [address], [address] , [facility] 7 13:02:28 Raynaud's phenomenon 538541489 Active Kris Leigh MD [address] [place] [address], [address] , [facility] 6 08:40:52 Benign paroxysmal positional vertigo 861009112 Active 2017 Peace Ruano NP [address] [place] [address], [address] , [facility] 8 13:35:50 Problem Notes None recorded. Procedures Surgical History Date Name Laterality Status Provider Name and Address Organization Details Recorded Time 01/06/20 25 Physical Activity Counselling completed SHANTAL LIN, PT [address] [place], [address], [facility] 01/04/2025 14:28:58 01/06/20 25 12687: PT Eval Low Complexity completed SHANTAL LIN, PT [address] [place], [address], [facility] 01/04/2025 14:28:47 01/06/20 25 Treatment and Advice completed SHANTAL LIN, PT [address] [place] [address], [address], [facility] 01/05/2025 14:17:38 01/28/20 24 Neuromuscular re-education completed SHANTAL LIN, PT [address] [place], [address], [facility] 01/28/2024 16:24:21 01/28/20 24 Treatment and Advice completed SHANTAL LIN, PT [address] [place], [address], [facility] 01/28/2024 16:11:11 01/26/20 24 Physical Activity Counselling completed SHANTAL LIN, PT [address] [place], [address], [facility] 01/26/2024 11:19:50 01/26/20 24 61742: PT Eval Low Complexity completed SHANTAL LIN, PT [address] [place], [address], [facility] 01/26/2024 11:19:54 01/26/20 24 Treatment and Advice completed SHANTAL LIN, PT [address] [place], [address], [facility] 01/26/2024 11:41:10 04/03/20 23 Smoking Cessation Counselling completed Filemon Cloud, PT [address] [place], [address], [facility] 04/03/2023 11:46:14 04/03/20 23 Physical Activity Counselling completed Filemon Cloud, PT [address] [place], [address], [facility] 04/02/2023 16:34:25 04/03/20 23 91013: PT Eval Low Complexity completed Filemon Cloud, PT [address] [place], [address], [facility] 04/02/2023 16:34:25 04/03/20 23 Treatment and Advice completed Filemon Cloud, PT [address] [place], [address], [facility] 04/03/2023 15:01:47 04/28/20 22 Physical Activity Counselling completed Joanna Thurman, PT [address] [place], [address], [facility] 04/28/2022 11:56:57 11/27/19 22 Physical Activity Counselling completed Joanna Thurman, PT [address] [place], [address], [facility] 11/26/2021 09:01:22 01/01/20 19 Medicare Wellness Visit completed Lenora Johnson [facility] 12/31/2018 09:30:08 12/24/19 19 Toenail Avulsion completed Georgina Joshi, DPM [address] [place], [address], [facility] 12/24/2018 07:47:50 11/26/19 19 Physical Activity Counselling completed Joanna Thurman, PT [address] [place], [address], [facility] 11/26/2018 08:09:43 07/12/20 18 Physical Activity Counselling completed Joanna Thurman, PT [address] [place], [address], [facility] 07/12/2018 16:58:41 03/10/20 18 Physical Activity Counselling [place], [address], [facility] 03/11/2018 07:19:23 03/10/20 18 99640: PT Eval, Moderate Complexity [place], [address], [facility] 03/11/2018 07:19:32 12/30/19 18 Medicare Wellness Visit completed Annie Renteria [facility] 12/29/2017 13:21:17 11/12/19 18 Physical Activity Counselling [place], [address], [facility] 11/11/2017 13:04:00 11/12/19 18 56575: PT Eval Low Complexity [place], [address], [facility] 11/11/2017 13:04:00 07/21/20 17 Physical Activity Counselling [place], [address], [facility] 07/21/2017 19:51:12 07/21/20 17 28881: PT Eval Low Complexity [place], [address], [facility] 07/21/2017 19:51:12 12/27/19 17 25981: Therapeutic Exercise completed Filemon Cloud, PT [address] [place], [address], [facility] 12/26/2016 13:14:34 12/27/19 17 60177: Ultrasound (1:1) completed Filemon Cloud, PT [address] [place], [address], [facility] 12/26/2016 13:14:34 12/24/19 17 43125: Therapeutic Exercise completed Filemon Cloud, PT [address] [place], [address], [facility] 12/23/2016 13:48:37 12/24/19 17 57422: Ultrasound (1:1) completed Filemon Cloud, PT [address] [place], [address], [facility] 12/23/2016 13:48:21 12/17/19 17 17240: Therapeutic Exercise completed Filemon Cloud, PT [address] [place], [address], [facility] 12/16/2016 22:06:28 11/27/19 17 Physical Activity Counselling completed Filemon Cloud, PT [address] [place], [address], [facility] 11/26/2016 10:36:36 11/27/19 17 72690: PT Josefina, Moderate Complexity completed Filemon Cloud, PT [address] [place], [address], [facility] 11/26/2016 21:17:20 07/14/20 16 Physical Activity Counselling completed Che Woods [address] [place], [address], [facility] 07/14/2016 21:45:18 06/17/20 16 Medicare Wellness Visit completed Nuha Sanchez RN [facility] 06/17/2016 08:19:35 03/31/20 16 59300: PT Evaluation completed Enrique Zaman, PT [address] [place], [address], [facility] 03/31/2016 14:00:35 03/28/20 16 POC Strep Testing completed Imelda Godinez MA [facility] 03/31/2016 11:15:45 04/25/20 15 42607: Therapeutic Exercise completed Filemon Cloud, PT [address] [place], [address], [facility] 04/25/2015 12:45:33 04/25/20 15 35086: Manual Therapy completed Filemon Cloud, PT [address] [place], [address], [facility] 04/25/2015 12:45:33 04/18/20 15 20383: PT Evaluation completed Filemon Cloud, PT [address] [place], [address], [facility] 04/18/2015 12:46:49 08/22/20 14 Incise and Drain with packing completed Peace Ruano, JAVA LEAD ENGINEER [address] [place], [address], [facility] 08/22/2014 14:22:12 Imaging Results None recorded. Procedure Notes None recorded. Medical Equipment None Reported. Allergies Allergen ID Allergen Name Allergen Category Reaction Reaction Severity Criticality Documentation Date Start Date Code Code System Note Provider Name and Address Organization Details Recorded Time 543727 propranol ol medicatio n Not available Not available Not available 04/15/2013 8787 RxNorm dizzy at lowes t dose Glenis Slade PA-C [address] [facility] [place], [address], [facility] 3 07:44:52 96671 codeine medicatio n Not available Not available Not available 02/06/2012 2670 RxNorm felt like she [facility] 11:34:42 Medications Name Sig Start [...] bromide 42 mcg (0.06 %) nasal spray Tuttle 2 sprays 3 times a day by [...] Status Former Smoker Maegan Chavez LPN [facility] 02/06/2012 14:55:41 Do You Have An [...] not available 01/02/2014 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 Obstetrics History GPAL:G 0 P 0 0 0 0 Immunizations Vaccine Type Date Status Note Provider Nam e and Address Organization Details Recorded Time Influenza, split virus, quadrivalent, PF 4 completed Not Available [facility] 09/17/2019 02:18:56 Influenza, split virus, trivalent, PF 4 completed Not Available [facility] 09/17/2019 02:31:43 zoster live 4 completed Not Available [facility] 09/17/2019 02:16:36 Tdap 5 completed Not Available [facility] 09/17/2019 02:19:26 Influenza, split virus, quadrivalent, PF 5 completed Not Available [facility] 09/17/2019 02:25:39 Td(adult) unspecified formulation 4 completed [facility] 11/05/2012 11:05:45 Influenza, high-dose, trivalent, PF 6 completed Not Available [facility] 09/17/2019 02:21:05 Influenza, high-dose, trivalent, PF 8 completed Not Available [facility] 09/17/2019 02:35:35 Influenza, high-dose, trivalent, PF 9 completed Not Available [facility] 09/17/2019 02:25:35 Past Encounters Encounter ID Performer Location Encounter Start Date Encounter Closed Date Diagnosis/Indication Diagnosis SNOMED-CT Code Diagnosis ICD10 Code Diagnosis Note [id number] DAJA LIN, PT Physical Therapy, [address] [place] [address] 01/05/2025 10:42:09 01/06/2025 08:01:34 Mechanical low back pain 191110298 M54.59 Health Concerns Section Related Observation LastModified by Organization Detai ls LastModified Time None Recorded Concern Status LastModified by Organization Details LastModified Time None Recorded Payers Encounter Date Sequence Insurance Name Policy Number Policy Arizmendi Covered Member ID Arizmendi Member ID Guarantor Name 01/05/2025 2 [facility] - PLAN 1 (MEDICARE SUPPLEMENT) [id number] Rajani Hart [id number] Rajani Hart 01/05/2025 1 [place]: [employer] Rajani Hart [id number] Rajani Hart Notes Date Note Type Note Provider Name and Address Organization Details Recorded Time 5 text/html Pt is a 74 yo f referred by PCP Dale Cast MD for low back pain with intermittent numbness in R foot - more toward end of day. Back pain is chronic, but became substantially worse during/after 15-day hospitalization a year ago for covid and complete heart block; tried [facility] but had bad experience and [...] on chronic prednisone for breathing issues per dye padder operator, CREST syndrome, osteopenia, anemia, Raynaud's phenomenonRetired from [facility] clerical workRecreation: quilting, crafting, embroidering formerly [facility] [address] [facility], [place], [address], [facility] 01/05/2025 17:40:57 OBGyn Episode No OBEpisode recorded.
--- OUTSIDE RECORDS SUMMARY | 2025-01-09 13:22 | XMS_ITS | Encounter Summary ---
Author Organization [employer] Address [address] [place] [address] Care Team Providers Care Call Or Contact Centre Manager Name Role Phone Provider, Not In System Primary Care Provider Un available Encounter Details Date Type Department Care Team (Late st Contact Info) Description 01/01/[address] [facility] [address] [place] [address] Provider, Not In System Social [...] on filedocumented in this encounter Care Teams Call Or Contact Centre Manager Relationship Specialty Start Date End Date Provider, Not In System PCP - General Family Medicine 06/19/23 documented as of this encounter
== END 2025-01-09 14:01 | disposition home or self-care (01) ==
LOC: HO.HCS 13:05
PROVIDERS: PCP Internal Medicine; Visit Provider Internal Medicine Cardiovascular Disease
DX: I50.32 Chronic diastolic (congestive) heart failure (principal); I05.0 Rheumatic mitral stenosis; M34.1 CR(E)ST syndrome
CPT/HCPCS: 93010; 99214

== ENCOUNTER → 2025-01-09 13:04 | Outpatient (BNVA) | payer MEDICARE, OTHER, SELFPAY | PROVIDERS: PCP Internal Medicine; Visit Provider Internal Medicine Cardiovascular Disease | DX: I50.32 Chronic diastolic (congestive) heart failure (principal); I05.0 Rheumatic mitral stenosis; M34.1 CR(E)ST syndrome; Z87.891 Personal history of nicotine dependence | CPT/HCPCS: 93005; 99212 ==

== ENCOUNTER 2025-02-09 12:27 | Outpatient (AMB) | payer MEDICARE, OTHER, SELFPAY ==
[2025-02-09 13:11] VITALS: BP 104/58; PULSE 76; O2SAT 98; BMI 32.2
--- NOTE | 2025-02-09 13:11 | A.OFFVIS_ITS ---
Vital Signs 02/09/25 13:11 Height 5 ft 3 in Weight 181 lb 14.102 oz BMI 32.2 BP 104/58 L Blood Pressure Location Rt brachial Position Sitting Pulse 76 Pulse Source Pulse Oximeter Pulse Oximetry (%) 98 Oxygen Delivery Method Room Air Intake Visit Reasons: ILD Allergies codeine Allergy (Severe, Verified 02/09/25 13:17) felt like going to empagliflozin [From Jardiance] Allergy (Intermediate, Verified 02/09/25 13:17) Vomiting propranolol Allergy (Intermediate, Verified 02/09/25 13:17) dizziness Seasonal Allergies Allergy (Intermediate, Verified 02/09/25 13:17) Sneezing, vertigo Medication List - Last Reconciled 02/09/25 by Lore Orlando LPN acetaminophen (Tylenol) 650 mg PO QID PRN atorvastatin 40 mg PO DAILY calcium carbonate-vitamin D3 600 mg-20 mcg (800 unit) 1 tab PO DAILY cetirizine 10 mg PO DAILY furosemide 60 mg (1.5 x 40 mg) PO QAM 30 days gabapentin 100 mg PO BEDTIME levothyroxine 88 mcg PO DAILY meclizine (Dramamine (meclizine)) 25 mg PO BID PRN melatonin 5 mg PO .qhs metoprolol succinate ER (Toprol XL) 50 mg PO BID naproxen sodium (Flanax (naproxen)) 220 mg PO BID PRN omeprazole 40 mg PO DAILY prednisone 10 mg PO DAILY prochlorperazine maleate (Compazine) 10 mg PO BID PRN tizanidine 4 mg PO BID PRN tramadol 50 mg PO BID PRN HPI HPI ILD: Details: 74-year-old lady, former 40 pack smoker, quit 30 years prior, with underlying CREST under Rheumatology care, now followed for pulmonary component of dyspnea on exertion and 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 Patient respiratory symptoms are now controlled on prednisone 10 mg daily and Imuran 100 mg daily. Patient also seen [facility] pulmonary hypertension specialist and was put in sildenafil, though with no changes in her symptoms and no significant pulmonary hypertension noted on right heart catheterization or 2D echocardiogram. She continues on Lasix 60 mg daily. she was tried on Imuran, however was not able to tolerated secondary to GI side effects. She continues on prednisone 10 mg and Lasix 60 mg daily with good control of her symptoms. She denies any recent exacerbations. Her allergic workup has been essentially negative. PFSH Medical History (Updated 11/10/24 @ 15:48 by Pancho Monson MD) Adverse reaction to drug Restless leg syndrome Pacemaker Lower thoracic back pain Bifascicular block Supplemental oxygen dependent CREST (calcinosis, Raynaud's phenomenon, esophageal dysfunction, sclerodactyly, telangiectasia) Dyspnea on exertion Pericardial effusion Hypothyroid Enlarged thyroid Hypertension Multinodular thyroid Telangiectasia Dysphagia Surgical History S/P placement of cardiac pacemaker S/P cardiac cath S/P tooth extraction Hx of colonoscopy H/O breast biopsy Family History Father Heart disease Sister Ovarian cancer Brother Heart attack Stroke Mother Thyroid disease Brother Asthma Social History Household Members: Spouse Housing: House Do you presently have visiting nurse or other home services: Yes ([facility]NA ,PT) Alcohol intake: never Patient Tobacco Use Status: Former Tobacco user Tobacco use type: Cigarette Years Smoked: 20 +/- e-Cigarette/Vaping Use: Never Used Second Hand Smoke Exposure: Yes Advance Directives Date on File: 02/13/24 service: No Current occupational status: retired 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 Cognitive needs: Yes (walker) Hearing needs: No Vision needs: Yes (Glasses) Review of Systems Const Denies daytime sleepiness, Denies excessive sweating, Denies fatigue, Denies fever(s), Denies lethargy, Denies malaise, Denies night sweats, Denies snoring a nd Denies weight loss Eyes Denies blurry vision and Denies itchy eyes ENT Denies nasal congestion, Denies post nasal drip, Denies sinus pain, Denies sinus pressure and Denies other ( Thrush) Card Denies chest pain, Denies pedal edema, Denies dyspnea, Denies orthopnea and Denies paroxysmal nocturnal dyspnea Resp Denies cough, Denies hemoptysis, Denies excessive phlegm production, Denies dyspnea, Denies snoring and Denies wheezing GI Denies abdominal pain and Denies heartburn Musc Denies myalgias, Denies arthralgias and Denies joint swelling Skin/Breast Denies rash Neuro Denies memory loss and Denies seizure-like activity Psych Denies abnormal sleep pattern, Denies anxiety and Denies memory loss Endo Denies excessive sweating, Denies fatigue and Denies heat intolerance Kenneth/Lymph Denies easy bruising Aller/Immun Denies itchy eyes, Denies seasonal rhinorrhea and Denies wheezing Physical Exam Vital Signs: Last Vital Signs Pulse 76 02/09/25 13:11 BP 104/58 L 02/09/25 13:11 Pulse Ox 98 02/09/25 13:11 Oxygen Delivery Method Room Air 02/09/25 13:11 BMI result Body Mass Index 32.2 Const General: no acute distress and alert Nutritional Appearance: not obese Orientation/consciousness: Other orientation findings ( oriented) HEENT Head: Yes atraumatic Eyes General: appearance normal, both eyes and all related structures Sclerae: sclerae normal EOM: EOMs intact bilaterally Neck Neck: Yes supple Lymphatic: no lymphadenopathy noted Resp Effort & Inspection: normal respiratory effort and no use of accessory muscles Auscultation: clear to auscultation bilaterally Cardio Rate: regular rate Rhythm: regular rhythm Heart sounds: no gallops, no murmurs and no rubs Skin General skin exam: other ( warm) Extrem General: No clubbing, No cyanosis and No edema Assessment & Plan Assessment & Plan (1) ILD (interstitial lung disease): Code(s): J84.9 - Interstitial pulmonary disease, unspecified Category: Medical Plan: Well controlled on prednisone 10 mg daily, will try titrating down to 7.5 mg daily. (2) Dyspnea on exertion: Code(s): R06.09 - Other forms of dyspnea Category: Medical Plan: Stable orthopnea symptoms on furosemide 60 mg daily. Continue current regimen. Medications: New prednisone 7.5 mg (3 x 2.5 mg) PO DAILY 30 days 90 tabs 6RF Discontinued prednisone Discontinued Reason: Doctor's Order 10 mg PO DAILY 30 tabs 0RF Coding Level of Care Code Est Pt Level 4 (93524) Diagnoses ILD (interstitial lung disease) J84.9 Dyspnea on exertion R06.09
--- OUTSIDE RECORDS SUMMARY | 2025-02-09 14:24 | XMS_ITS | Continuity of Care Document ---
Author Organization [facility] Address [address] [place] [address] [address] [place], [place] Phone [phone] Care Team Providers Care Material Handling Crew Supervisor Name Role Phone Dayan Barragan MD Care Team Information Rec eiver Unavailable Social History Type Date Description Comments Sex Female Sex Unknown
== END 2025-02-09 13:32 | disposition home or self-care (01) ==
PROVIDERS: Visit Provider Internal Medicine Pulmonary Disease
DX: J84.9 Interstitial pulmonary disease, unspecified (principal); R06.09 Other forms of dyspnea
CPT/HCPCS: 99214

== ENCOUNTER → 2025-02-09 12:27 | Outpatient (BNVA) | payer MEDICARE, OTHER, SELFPAY | PROVIDERS: PCP Internal Medicine; Visit Provider Internal Medicine Pulmonary Disease | DX: J84.9 Interstitial pulmonary disease, unspecified (principal); R06.09 Other forms of dyspnea | CPT/HCPCS: 99212 ==

== ENCOUNTER → 2025-02-10 23:59 | Outpatient (BNV) | payer MEDICARE, OTHER, SELFPAY ==
--- NOTE | 2025-02-23 21:49 | A.OFFVIS_ITS ---
Intake Visit Reasons: Remote device check- Medtronic Allergies codeine Allergy (Severe, Verified 02/09/25 13:17) felt like going to empagliflozin (From Jardiance) Allergy (Intermediate, Verified 02/09/25 13:17) Vomiting propranolol Allergy (Intermediate, Verified 02/09/25 13:17) dizziness Seasonal Allergies Allergy (Intermediate, Verified 02/09/25 13:17) Sneezing, vertigo PFSH Medical History (Updated 11/10/24 @ 15:48 by Pancho Monson MD) Adverse reaction to drug Restless leg syndrome Pacemaker Lower thoracic back pain Bifascicular block Supplemental oxygen dependent CREST (calcinosis, Raynaud's phenomenon, esophageal dysfunction, sclerodactyly, telangiectasia) Dyspnea on exertion Pericardial effusion Hypothyroid Enlarged thyroid Hypertension Multinodular thyroid Telangiectasia Dysphagia Surgical History S/P placement of cardiac pacemaker S/P cardiac cath S/P tooth extraction Hx of colonoscopy H/O breast biopsy Family History Father Heart disease Sister Ovarian cancer Brother Heart attack Stroke Mother Thyroid disease Brother Asthma Social History Household Members: Spouse Housing: House Do you presently have visiting nurse or other home services: Yes (VNA ,PT) Alcohol intake: never Patient Tobacco Use Status: Former Tobacco user Tobacco use type: Cigarette Years Smoked: 20 +/- e-Cigarette/Vaping Use: Never Used Second Hand Smoke Exposure: Yes Advance Directives Date on File: 02/13/24 service: No Current occupational status: retired 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 [id number] Cardiac Device Interrogation, pacemaker Procedure code (CPT) selection complete Assessment & Plan Assessment & Plan (1) Pacemaker: Comment: (Medtronic DCPP for complete heart block 12/2023) Code(s): Z95.0 - Presence of cardiac pacemaker Category: Medical Plan: Coding Level of Care Code Procedure Only Diagnoses Pacemaker Z95.0 CPT Codes Cardiac Device Check - Cardiac Device 12: [id number] Cardiac Device Interrogation, pacemaker ([id number])
== END ==
PROVIDERS: Visit Provider Internal Medicine Cardiovascular Disease
DX: I47.10 Supraventricular tachycardia, unspecified (principal); Z95.0 Presence of cardiac pacemaker
CPT/HCPCS: 93294

== ENCOUNTER 2025-03-09 13:44 | Outpatient (AMB) | payer MEDICARE, OTHER, SELFPAY ==
--- NOTE | 2025-03-09 13:46 | MHC.OFFVIS ---
Vital Signs 03/09/25 13:48 Height 5 ft 3 in Weight 184 lb 1.376 oz BMI 32.6 BP 110/64 Blood Pressure Location Rt brachial Position Sitting Pulse 62 Pulse Source Pulse Oximeter Pulse Oximetry (%) 99 Oxygen Delivery Method Room Air Intake Visit Reasons: f/u secondary hyperparathyroidism Intake Note: Patient present today for Secondary Hyperparathyroidism follow up. Continuous Improvement Specialist Required: No Accompanied by: Self / Same As Patient Allergies codeine Allergy (Severe, Verified 03/09/25 13:48) felt like going to empagliflozin (From Jardiance) Allergy (Intermediate, Verified 03/09/25 13:48) Vomiting propranolol Allergy (Intermediate, Verified 03/09/25 13:48) dizziness Seasonal Allergies Allergy (Intermediate, Verified 03/09/25 13:48) Sneezing, vertigo Medication List - Last Reconciled 03/09/25 by Carson Paul MD acetaminophen (Tylenol) 650 mg PO QID PRN atorvastatin 40 mg PO DAILY calcium carbonate-vitamin D3 600 mg-20 mcg (800 unit) 1 tab PO DAILY cetirizine 10 mg PO DAILY furosemide 60 mg (1.5 x 40 mg) PO QAM 30 days gabapentin 100 mg PO BEDTIME levothyroxine 88 mcg PO DAILY magnesium 200 mg PO DAILY meclizine (Dramamine (meclizine)) 25 mg PO BID PRN melatonin 5 mg PO .qhs metoprolol succinate ER (Toprol XL) 50 mg PO BID naproxen sodium (Flanax (naproxen)) 220 mg PO BID PRN omeprazole 40 mg PO DAILY prednisone 7.5 mg (3 x 2.5 mg) PO DAILY 30 days prochlorperazine maleate (Compazine) 10 mg PO BID PRN tizanidine 4 mg PO BID PRN tramadol 50 mg PO BID PRN HPI Comments Details: This is a 74-year-old white female previously seen by endocrinology for management multinodular goiter. Patient returns for visit today for new problem of increased PTH. Patient is currently on supplement 1000 IU vitamin D3 and 600 mg calcium. There is no history of kidney stones. DEXA bone density shows the absence of osteoporosis but low bone mass. There is no history of renal insufficiency. Recent 25 hydroxy vitamin-D level was low normal. No hx of bone fx . [facility] did not have any PTH, 25 hydroxy vitamin-D were 24 hour urine results The patient is a 74-year-old female presenting with issues related to calcium and vitamin D levels. She reports experiencing fatigue, particularly noticeable mid-morning and in the afternoon, which may be related to her current health issues. The patient has a history of hyponatremia, which has shown some improvement. Recent lab work indicated borderline low calcium levels, and there is a need to repeat the lab work to monitor these levels accurately. The patient has been taking calcium and vitamin D supplements as part of her treatment plan. She also takes magnesium, zinc, and vitamin K2 supplements, which she obtains over the counter. There have been issues with obtaining complete lab results, particularly concerning parathyroid hormone levels, which have been elevated and inconsistent. The patient has switched her primary care provider to a facility closer to her residence, which may facilitate easier access to lab services. - Calcium supplement: Taken in the afternoon - Vitamin D supplement: Taken in the afternoon - Magnesium supplement: 800 mg daily, taken over the counter - Zinc supplement: Taken over the counter - Vitamin K2 supplement: Taken over the counter We will also obtain repeat [facility] Medical History (Updated 11/10/24 @ 15:48 by Pancho Monson MD) Adverse reaction to drug Restless leg syndrome Pacemaker Lower thoracic back pain Bifascicular block Supplemental oxygen dependent CREST (calcinosis, Raynaud's phenomenon, esophageal dysfunction, sclerodactyly, telangiectasia) Dyspnea on exertion Pericardial effusion Hypothyroid Enlarged thyroid Hypertension Multinodular thyroid Telangiectasia Dysphagia Surgical History S/P placement of cardiac pacemaker S/P cardiac cath S/P tooth extraction Hx of colonoscopy H/O breast biopsy Family History Father Heart disease Sister Ovarian cancer Brother Heart attack Stroke Mother Thyroid disease Brother Asthma Social History Household Members: Spouse Housing: House Do you presently have visiting nurse or other home services: Yes (VNA ,PT) Alcohol intake: never Patient Tobacco Use Status: Former Tobacco user Tobacco use type: Cigarette Years Smoked: 20 +/- e-Cigarette/Vaping Use: Never Used Second Hand Smoke Exposure: Yes Advance Directives Date on File: 02/13/24 service: No Current occupational status: retired 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 Hypocalcemia The calcium level was borderline low. Repeat lab work is needed to confirm and monitor the levels. 3. Elevated parathyroid hormone levels The levels have been inconsistent and elevated. Further testing at a different facility is planned to obtain accurate results. 4. Fatigue The patient reports significant fatigue, which may be related to her current health issues. Thyroid function should be evaluated by her primary care provider. I discussed with the patient the importance of repeating the lab work to monitor her calcium and parathyroid hormone levels accurately. We talked about the issues with previous lab results and the plan to conduct further testing at a different facility. I advised her to continue taking her calcium and vitamin D supplements and to have her thyroid function evaluated by her primary care provider due to her reported fatigue. We agreed on a follow-up plan in two months to review the lab results and adjust the treatment plan as necessary. - Continue taking calcium and vitamin D supplements as prescribed. - Complete the lab work at the designated facility as soon as possible. - Follow up with your primary care provider to evaluate thyroid function. - Schedule a follow-up appointment in two months to review lab results. The patient had an opportunity to ask questions regarding treatment plan. The patient expressed understanding and agreement with the above treatment plan. Patient was informed and verbally consented to the use of an ambient scribe for clinic note documentation during this visit. Coding Level of Care Code Est Pt Level 3 (33387) Diagnoses Increased PTH level R79.89
--- OUTSIDE RECORDS SUMMARY | 2025-03-09 13:47 | XMS_ITS | Encounter Summary ---
Author Organization [employer] Address [address] [facility] [address] [place] [address] Care Team Providers Care Executive Coach Name Role Phone Peace Ruano Primary Care Provider Unavailab le Peace Ruano Unavailable Unavailable Provider, Not In System Primary Care Provider Un available Encounter Details Date Type Department Care Team (Late st Contact Info) Description 07/22/[address] [phone] Peace Ruano FNP Social History Tobacco Use [...] on filedocumented in this encounter Care Teams Executive Coach Relationship Specialty Start Date End Date Peace Ruano FNP PCP - General Family Medicine 06/27/22 06/18/23 Provider, Not In System PCP - General Family Medicine 06/19/23 Peace Ruano FNP Family Medicine 06/27/22 06/18/23 documented as of this encounter
--- OUTSIDE RECORDS SUMMARY | 2025-03-09 13:47 | XMS_ITS | Continuity of Care Document ---
Author Organization [facility] Address [address] [place] [address] [address] [place], [place] Phone [phone] Care Team Providers Care Chili Maker Name Role Phone Dayan Barragan MD Care Team Information Rec eiver Unavailable Social History Type Date Description Comments Sex Female Sex Unknown
[2025-03-09 13:48] VITALS: BP 110/64; PULSE 62; O2SAT 99; BMI 32.6
== END 2025-03-09 14:25 | disposition home or self-care (01) ==
LOC: HO.ENCR 13:44
PROVIDERS: Visit Provider Internal Medicine Endocrinology, Diabetes & Metabolism
DX: R79.89 Other specified abnormal findings of blood chemistry (principal)
CPT/HCPCS: 99213

== ENCOUNTER → 2025-03-09 13:44 | Outpatient (BNVA) | payer MEDICARE, OTHER, SELFPAY | PROVIDERS: Visit Provider Internal Medicine Endocrinology, Diabetes & Metabolism | DX: R79.89 Other specified abnormal findings of blood chemistry (principal) | CPT/HCPCS: 99212 ==

== ENCOUNTER 2025-05-11 13:55 | Outpatient (AMB) | payer MEDICARE, OTHER, SELFPAY ==
--- NOTE | 2025-05-11 13:58 | MHC.OFFVIS ---
Vital Signs 05/11/25 14:01 Height 5 ft 3 in Weight 186 lb 1.122 oz BMI 33.0 BP 110/66 Blood Pressure Location Lt brachial Position Sitting Pulse 89 Pulse Source Pulse Oximeter Intake Visit Reasons: f/u hyperparathyroidism Intake Note: Patient present today for Secondary Hyperparathyroidism follow up. Ambulance Paramedic Required: No Accompanied by: Self / Same As Patient Allergies codeine Allergy (Severe, Verified 05/11/25 14:01) felt like going to empagliflozin (From Jardiance) Allergy (Intermediate, Verified 05/11/25 14:01) Vomiting propranolol Allergy (Intermediate, Verified 05/11/25 14:01) dizziness Seasonal Allergies Allergy (Intermediate, Verified 05/11/25 14:01) Sneezing, vertigo HPI Comments Details: This is a 74-year-old white female previously seen by endocrinology for management multinodular goiter. Patient returns for visit today for new problem of increased PTH. Patient is currently on supplement 1000 IU vitamin D3 and 600 mg calcium. There is no history of kidney stones. DEXA bone density shows the absence of osteoporosis but low bone mass. There is no history of renal insufficiency. Recent 25 hydroxy vitamin-D level was low normal. No hx of bone fx . Recent blood tests [facility] did not have any PTH, 25 hydroxy vitamin-D were 24 hour urine results The patient is a 74-year-old female presenting with issues related to calcium and vitamin D levels. She reports experiencing fatigue, particularly noticeable mid-morning and in the afternoon, which may be related to her current health issues. The patient has a history of hyponatremia, which has shown some improvement. Recent lab work indicated borderline low calcium levels, and there is a need to repeat the lab work to monitor these levels accurately. The patient has been taking calcium and vitamin D supplements as part of her treatment plan. She also takes magnesium, zinc, and vitamin K2 supplements, which she obtains over the counter. There have been issues with obtaining complete lab results, particularly concerning parathyroid hormone levels, which have been elevated and inconsistent. The patient has switched her primary care provider to a facility closer to her residence, which may facilitate easier access to lab services. - Calcium supplement: Taken in the afternoon - Vitamin D supplement: Taken in the afternoon - Magnesium supplement: 800 mg daily, taken over the counter - Zinc supplement: Taken over the counter - Vitamin K2 supplement: Taken over the counter Did not receive repeat labs from [facility] ([facility] Medical History (Updated 05/11/25 @ 14:59 by Carson Paul MD) Hypothyroidism (acquired) Adverse reaction to drug Restless leg syndrome Pacemaker Lower thoracic back pain Bifascicular block Supplemental oxygen dependent CREST (calcinosis, Raynaud's phenomenon, esophageal dysfunction, sclerodactyly, telangiectasia) Dyspnea on exertion Pericardial effusion Hypothyroid Enlarged thyroid Hypertension Multinodular thyroid Telangiectasia Dysphagia Surgical History S/P placement of cardiac pacemaker S/P cardiac cath S/P tooth extraction Hx of colonoscopy H/O breast biopsy Family History Father Heart disease Sister Ovarian cancer Brother Heart attack Stroke Mother Thyroid disease Brother Asthma Social History Household Members: Spouse Housing: House Do you presently have visiting nurse or other home services: Yes (VNA ,PT) Alcohol intake: never Patient Tobacco Use Status: Former Tobacco user Tobacco use type: Cigarette Years Smoked: 20 +/- e-Cigarette/Vaping Use: Never Used Second Hand Smoke Exposure: Yes Advance Directives Date on File: 02/13/24 service: No Current occupational status: retired 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 [employer] Cognitive needs: Yes (walker) Hearing needs: No Vision needs: Yes (Glasses) Physical Exam Vital Signs: Last Vital Signs Pulse 89 05/11/25 14:01 BP 110/66 05/11/25 14:01 BMI result Body Mass Index 33.0 Assessment & Plan Assessment & Plan (1) Increased PTH level: Code(s): R79.89 - Other specified abnormal findings of blood chemistry Category: Medical Plan: Will otain repeat calcium, albumin, PTH and 25-D at [facility] ([facility]) as well as 24 hr urine for calcium and creatinine (2) Multinodular thyroid: Code(s): E04.2 - Nontoxic multinodular goiter Category: Medical Plan: Will have pt f/u with Dr. Quijano for futher evaluation of nodules (3) Hypothyroidism (acquired): Code(s): E03.9 - Hypothyroidism, unspecified Category: Medical Plan: Will increase L-T4 to 100 ug and recheck TSH and free T4 in 6 wks Orders: Orders Free T4 (Free Thyroxine) 6 Weeks E04.2 - Nontoxic multinodular goiter Creatinine, 24 Hr Group 6 Weeks R79.89 - Other specified abnormal findings of blood chemistry Calcium, 24 Hr Ur 6 Weeks R79.89 - Other specified abnormal findings of blood chemistry Thyroid Stimulating Hormone 6 Weeks E04.2 - Nontoxic multinodular goiter Medications: New Synthroid (levothyroxine) 100 mcg PO DAILY 30 tabs 4RF NS Discontinued levothyroxine Discontinued Reason: Doctor's Order 88 mcg PO DAILY 90 tabs 0RF Coding Level of Care Code Est Pt Level 3 (36170) Diagnoses Increased PTH level R79.89 Multinodular thyroid E04.2 Hypothyroidism (acquired) E03.9
[2025-05-11 14:01] VITALS: BP 110/66; PULSE 89; BMI 33.0
--- OUTSIDE RECORDS SUMMARY | 2025-05-11 17:47 | XMS_ITS | Clinical Summary ---
Author Organization [facility] Address [address] [place] [id number] Phone Care Team Providers Care Chipper Name Role Phone Peace Ruano NP Primary Care Provider Social History Tobacco Use Types Packs/Day Years Used Date Smoking Tobacco: Never Assessed Education Answer Date Recorded Are you interested in more education? Not on kenneth e 12/27/2022 Are you concerned about learning? Not on file 12/27/2022 No 12/27/2022 No 12/27/2022 Digital Access Answer Date Recorded No 01/27/2023 No 01/27/2023 Reliable internet access at home? Not on file 01/27/2023 Device with a working camera? Not on file Comments Unknown Sex and Gender Information Value Date Recorded Sex Assigned at Not on file Legal Sex Female 9:25 AM EDT Gender Identity Not on file Sexual Orientation Not on file Plan of Treatment Health Maintenance Due Date Last Done Comments Adult Td,Tdap Booster 1950 LIPID PANEL 1950 DEPRESSION SCREENING 1962 SMOKING Hx and SMOKELESS TOB ACCO SCREENING 1963 HEPATITIS C SCREENING 1968 MAMMOGRAM 1990 COLOGUARD 1995 COLONOSCOPY 1995 COLORECTAL CANCER SCREENING 1995 FIT TEST 1995 FOBT 1995 SIGMOIDOSCOPY 1995 VIRTUAL COLONOSCOPY 1995 PNEUMOCOCCAL VACCINES (50+ y ears) (1 of 1 - PCV) 2000 ZOSTER VACCINES (1 of 2) 2000 OSTEOPOROSIS SCREENING INITI AL (ONE-TIME) 2015 INFLUENZA VACCINE (#1) 2025 COVID-19 VACCINE ( - 2023-2 5 season) 2025 RSV VACCINE (1 - 1-dose 75+ series) 2025 HEPATITIS A VACCINES Aged Out No long er eligible based on patient's age to complete this topic HIB VACCINES Aged Out No longer eligi ble based on patient's age to complete this topic MENINGOCOCCAL VACCINES (ACWY) Aged Out No longer eligible based on patient's age to complete this topic MENINGOCOCCAL VACCINES (B) Aged Out N o longer eligible based on patient's age to complete this topic Medical Devices Not on file Insurance MEDICARE PART A & B [facility] MEDICARE SUPPLEMENT MEDICARE PART A & B MEDICARE SUPPLEMENT MEDICARE PART A & B MEDICARE SUPPLEMENT MEDICARE PART A & B MEDICARE SUPPLEMENT MEDICARE PART A & B [facility] MEDICARE SUPPLEMENT MEDICARE PART A & B MEDICARE SUPPLEMENT MEDICARE PART A & B MEDICARE SUPPLEMENT MEDICARE PART A & B Member Subscriber Plan / Payer (Ef fective 2016-) Name:Rajani Almaraz Member ID:[id number] Relation to Subscriber:Self Name:Rajani Almaraz Subscriber ID:[id number] Payer ID:[id number] Group ID:Not on file Type:Medicare Address: [email or web address] [facility].[address] [address] [facility] MEDICARE SUPPLEMENT MEDICARE PART A & B [facility] MEDICARE SUPPLEMENT Care Teams Chipper Relationship Specialty Start Date End Date Peace Ruano NP [address] [place] [address] [phone] PCP - General Family Medicine 12/20/20 Additional Source Comments The information contained in this document represents components of the legal health record. It is not the complete legal health record.[facility]
--- OUTSIDE RECORDS SUMMARY | 2025-05-11 17:47 | XMS_ITS | Continuity of Care Document ---
Author Organization [facility] Address [address] [place] [address] [address] [place], [place] Phone [phone] Care Team Providers Care Echocardiography Technologist Name Role Phone Dayan Barragan MD Care Team Information Rec eiver Unavailable Social History Type Date Description Comments Sex Female Sex Unknown
--- OUTSIDE RECORDS SUMMARY | 2025-05-11 17:47 | XMS_ITS | Encounter Summary ---
Author Organization [employer] Address [address] [facility] [address] [place] [address] Care Team Providers Care Alterations Manager Name Role Phone Peace Ruano Primary Care Provider Unavailab le Peace Ruano Unavailable Unavailable Provider, Not In System Primary Care Provider Un available Encounter Details Date Type Department Care Team (Late st Contact Info) Description 07/22/[address] [phone] Peace Ruano FNP Social History [...] on filedocumented in this encounter Care Teams Alterations Manager Relationship Specialty Start Date End Date Peace Ruano FNP PCP - General Family Medicine 06/27/22 06/18/23 Provider, Not In System PCP - General Family Medicine 06/19/23 Peace Ruano FNP Family Medicine 06/27/22 06/18/23 documented as of this encounter
--- OUTSIDE RECORDS SUMMARY | 2025-05-11 17:47 | XMS_ITS | Clinical Summary ---
Author Organization [employer] Address [address] [facility] [address]t [place] [address] Care Team Providers Care Leather Production Machine Operator Name Role Phone Provider, Not [...] hyperlipidemia 11/12/2021 Hypertension 01/09/2020 Hypothyroidism 01/09/2020 Immunizations Immunization Administration Dates Next Due Influenza Injectable Quadriv [...] 62 07/07/2022 1:55 PM EST Temperature 36.7 C (98 F) 02/26/2023 2:55 PM EDT Respiratory Rate - [...] Screening 09/08/2023 09/08/2022 Tobacco Screening 02/27/2024 02/26/2023 DTaP/Tdap/Td Vaccines (2 - Td or Tdap) 01/25/2025 01/25/2015, 08/31/2003 COVID-19 Vaccine ( season) 2025 09/08/2022, 08/26/2021, 12/07/2020, Additional history exists Influenza Vaccine (#1) 2025 , 07/07/2022, 08/26/2021, Additional history exists Lipid Panel 02/27/2028 02/26/2023, 10/02, 12/20/2020, Additional [...] patient's age to complete this topic Meningococcal B Vaccine Aged Out No l onger eligible based on patient's age to complete [...] PM EDT) Cholesterol, Total 124 (<200) MG/DL [facility] Triglyceride (mg/dL) in Serum/Plasma 116 (<150) MG/DL [facility] HDL Cholesterol 49 (>39) MG/DL [facility] LDL Cholesterol, Calculated 52 (0-130) MG/DL [facility] Non HDL Chol. (LDL+VLDL) 75 (<160) MG/DL [facility] Comment: Testing performed or reported by [facility], a Service of [facility], [address] [place] [id number] Leo Peres MD, Sports Specialist LANE# [id number] Blood Venous blood specimen / Unknown 02/26/2023 3:32 PM EDT 02/26/2023 3:35 PM EDT Peace Ruano SHEET CUTTER LAB BLOOD ORDERABLES Final Resul t Performing Organization Address City/[facility]/ZIP Co de Phone Number [facility] [address] [place] [phone] * FECAL OCCULT BLOOD, IMMUNOCHEMICAL (11/21/2021 8:36 AM EDT) Fecal Occult Blood, Immunochemical (FIT) NEGATIVE [facility] 11/21/2021 8:36 AM EDT Historical Provider LAB BODY FLUIDS AND STOOL S ORDERABLES Final Result Performing Organization Address City/[facility]/ZIP Co de Phone Number [facility] [address] * Fecal immunochemical (11/21/2021) Fecal Immunoassay Test (External) negative Stool Rectal contents / Unknown Historical Provider LAB BODY FLUIDS AND STOOL S ORDERABLES Final Result from Last 3 Months or Most Recently Relevant to Health Maintenance Insurance [facility] * Guarantor: Rajani Hart Account Type Relation to Patient Date of Phone Billing Address Dental Self Care Teams Leather Production Machine Operator Relationship Specialty Start Date End Date Provider, Not In System PCP - General Family Medicine 06/19/23
--- OUTSIDE RECORDS SUMMARY | 2025-05-11 17:48 | XMS_ITS | Encounter Summary ---
Author Organization [employer] Address [address] [facility] [address] [facility] [address] [address] [place] [address] Care Team Providers Care Teacher Aide Name Role Phone Provider, Not In System Primary Care Provider Un available Encounter Details Date Type Department Care Team (Late st Contact Info) Description 01/01/2024 Telephone [facility] [address] [place] [address] Provider, Not In System Social [...] on filedocumented in this encounter Care Teams Teacher Aide Relationship Specialty Start Date End Date Provider, Not In System PCP - General Family Medicine 06/19/23 documented as of this encounter
== END 2025-05-11 15:00 | disposition home or self-care (01) ==
LOC: HO.ENCR 13:55
PROVIDERS: Visit Provider Internal Medicine Endocrinology, Diabetes & Metabolism
DX: R79.89 Other specified abnormal findings of blood chemistry (principal); E04.2 Nontoxic multinodular goiter; E03.9 Hypothyroidism, unspecified
CPT/HCPCS: 99213

== ENCOUNTER → 2025-05-11 13:55 | Outpatient (BNVA) | payer MEDICARE, OTHER, SELFPAY | PROVIDERS: Visit Provider Internal Medicine Endocrinology, Diabetes & Metabolism | DX: E03.9 Hypothyroidism, unspecified (principal); E04.2 Nontoxic multinodular goiter; R79.89 Other specified abnormal findings of blood chemistry | CPT/HCPCS: 99212 ==

== ENCOUNTER → 2025-05-12 23:59 | Outpatient (BNV) | payer MEDICARE, OTHER, SELFPAY ==
--- NOTE | 2025-06-10 12:30 | MHC.OFFVIS ---
Intake Visit Reasons: Remote device check- Medtronic Allergies codeine Allergy (Severe, Verified 06/08/25 13:26) felt like going to empagliflozin (From Jardiance) Allergy (Intermediate, Verified 06/08/25 13:26) Vomiting propranolol Allergy (Intermediate, Verified 06/08/25 13:26) dizziness Seasonal Allergies Allergy (Intermediate, Verified 06/08/25 13:26) Sneezing, vertigo PFSH Medical History (Updated 05/11/25 @ 14:59 by Carson Paul MD) Hypothyroidism (acquired) Adverse reaction to drug Restless leg syndrome Pacemaker Lower thoracic back pain Bifascicular block Supplemental oxygen dependent CREST (calcinosis, Raynaud's phenomenon, esophageal dysfunction, sclerodactyly, telangiectasia) Dyspnea on exertion Pericardial effusion Hypothyroid Enlarged thyroid Hypertension Multinodular thyroid Telangiectasia Dysphagia Surgical History S/P placement of cardiac pacemaker S/P cardiac cath S/P tooth extraction Hx of colonoscopy H/O breast biopsy Family History Father Heart disease Sister Ovarian cancer Brother Heart attack Stroke Mother Thyroid disease Brother Asthma Social History Household Members: Spouse Housing: House Do you presently have visiting nurse or other home services: Yes ([facility]NA ,[place]) Alcohol intake: never Patient Tobacco Use Status: Former Tobacco user Tobacco use type: Cigarette Years Smoked: 20 +/- e-Cigarette/Vaping Use: Never Used Second Hand Smoke Exposure: Yes Advance Directives Date on File: 02/13/24 service: No Current occupational status: retired 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 [id number] Cardiac Device Interrogation, pacemaker Procedure code (CPT) selection complete Assessment & Plan Assessment & Plan (1) Pacemaker: Comment: (Medtronic DCPP for complete heart block 12/2023) Code(s): Z95.0 - Presence of cardiac pacemaker Category: Medical Plan Coding Level of Care Code Procedure Only Diagnoses Pacemaker Z95.0 CPT Codes Cardiac Device Check - Cardiac Device 12: [id number] Cardiac Device Interrogation, pacemaker ([id number])
== END ==
PROVIDERS: Visit Provider Internal Medicine Cardiovascular Disease
DX: I44.2 Atrioventricular block, complete (principal); Z95.0 Presence of cardiac pacemaker
CPT/HCPCS: 93294

== ENCOUNTER 2025-06-08 13:05 | Outpatient (AMB) | payer MEDICARE, OTHER, SELFPAY ==
[2025-06-08 13:18] VITALS: BP 132/67; PULSE 88; O2SAT 97; BMI 31.9
--- NOTE | 2025-06-08 13:18 | A.OFFVIS_ITS ---
Vital Signs 06/08/25 13:18 Height 5 ft 3 in Weight 180 lb BMI 31.9 BP 132/67 Blood Pressure Location Lt brachial Position Sitting Pulse 88 Pulse Source Pulse Oximeter Pulse Oximetry (%) 97 Oxygen Delivery Method Room Air Intake Visit Reasons: ILD Allergies codeine Allergy (Severe, Verified 06/08/25 13:26) felt like going to empagliflozin (From Jardiance) Allergy (Intermediate, Verified 06/08/25 13:26) Vomiting propranolol Allergy (Intermediate, Verified 06/08/25 13:26) dizziness Seasonal Allergies Allergy (Intermediate, Verified 06/08/25 13:26) Sneezing, vertigo HPI HPI ILD: Details: 74-year-old lady, former 40 pack smoker, quit 30 years prior, with underlying CREST under Rheumatology care, now followed for pulmonary component of dyspnea on exertion and 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 Patient respiratory symptoms are now controlled on prednisone 10 mg daily and Imuran 100 mg daily. Patient also seen [facility] pulmonary hypertension specialist and was put in sildenafil, though with no changes in her symptoms and no significant pulmonary hypertension noted on right heart catheterization or 2D echocardiogram. She continues on Lasix 60 mg daily. she was tried on Imuran, however was not able to tolerated secondary to GI side effects. She was able to decrease her prednisone down to 7.5 mg daily after the last office visit with stable respiratory symptoms. She continues on Lasix 60 mg daily with good control of her lower extremity edema and orthopnea. She does complain of daytime somnolence and fatigue. Patient does have prior sleep studies showing mild obstructive sleep apnea. [facility] Medical History (Updated 05/11/25 @ 14:59 by Carson Paul MD) Hypothyroidism (acquired) Adverse reaction to drug Restless leg syndrome Pacemaker Lower thoracic back pain Bifascicular block Supplemental oxygen dependent CREST (calcinosis, Raynaud's phenomenon, esophageal dysfunction, sclerodactyly, telangiectasia) Dyspnea on exertion Pericardial effusion Hypothyroid Enlarged thyroid Hypertension Multinodular thyroid Telangiectasia Dysphagia Surgical History S/P placement of cardiac pacemaker S/P cardiac cath S/P tooth extraction Hx of colonoscopy H/O breast biopsy Family History Father Heart disease Sister Ovarian cancer Brother Heart attack Stroke Mother Thyroid disease Brother Asthma Social History Household Members: Spouse Housing: House Do you presently have visiting nurse or other home services: Yes ([facility] ,[place]) Alcohol intake: never Patient Tobacco Use Status: Former Tobacco user Tobacco use type: Cigarette Years Smoked: 20 +/- e-Cigarette/Vaping Use: Never Used Second Hand Smoke Exposure: Yes Advance Directives Date on File: 02/13/24 service: No Current occupational status: retired 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 Cognitive needs: Yes (walker) Hearing needs: No Vision needs: Yes (Glasses) Review of Systems Const Denies daytime sleepiness, Denies excessive sweating, Reports fatigue, Denies fever(s), Reports lethargy, Denies malaise, Denies night sweats, Denies snoring and Denies weight loss Eyes Denies blurry vision and Denies itchy eyes ENT Denies nasal congestion, Denies post nasal drip, Denies sinus pain, Denies sinus pressure and Denies other ( Thrush) Card Denies chest pain, Denies pedal edema, Denies dyspnea, Denies orthopnea and Denies paroxysmal nocturnal dyspnea Resp Denies cough, Denies hemoptysis, Denies excessive phlegm production, Denies dyspnea, Denies snoring and Denies wheezing GI Denies abdominal pain and Denies heartburn Musc Denies myalgias, Denies arthralgias and Denies joint swelling Skin/Breast Denies rash Neuro Denies memory loss and Denies seizure-like activity Psych Denies abnormal sleep pattern, Denies anxiety and Denies memory loss Endo Denies excessive sweating, Reports fatigue and Denies heat intolerance Kenneth/Lymph Denies easy bruising Aller/Immun Denies itchy eyes, Denies seasonal rhinorrhea and Denies wheezing Physical Exam Vital Signs: Last Vital Signs Pulse 88 06/08/25 13:18 BP 132/67 06/08/25 13:18 Pulse Ox 97 06/08/25 13:18 Oxygen Delivery Method Room Air 06/08/25 13:18 BMI result Body Mass Index 31.9 Const General: no acute distress and alert Nutritional Appearance: not obese Orientation/consciousness: Other orientation findings ( oriented) HEENT Head: Yes atraumatic Eyes General: appearance normal, both eyes and all related structures Sclerae: sclerae normal EOM: EOMs intact bilaterally Neck Neck: Yes supple Lymphatic: no lymphadenopathy noted Resp Effort & Inspection: normal respiratory effort and no use of accessory muscles Auscultation: clear to auscultation bilaterally Cardio Rate: regular rate Rhythm: regular rhythm Heart sounds: no gallops, no murmurs and no rubs Skin General skin exam: other ( warm) Extrem General: No clubbing, No cyanosis and Yes edema (Trace bilateral) Assessment & Plan Assessment & Plan (1) ILD (interstitial lung disease): Code(s): J84.9 - Interstitial pulmonary disease, unspecified Category: Medical Plan: Now well controlled on prednisone 7.5 mg daily. Continue current regimen. If continues to remain stable, will consider steroid sparing therapy. (2) WISAM (obstructive sleep apnea): Code(s): G47.33 - Obstructive sleep apnea (adult) (pediatric) Category: Medical Plan: Underlying mild obstructive sleep apnea. Patient wants to try to use nocturnal oxygen at this time. (3) Supplemental oxygen dependent: Code(s): Z99.81 - Dependence on supplemental oxygen Category: Medical Plan: Continue supplemental oxygen to maintain O2 saturation above 88%. (4) Pulmonary edema: Code(s): J81.1 - Chronic pulmonary edema Category: Medical Plan: Well controlled on current diuretic regimen of 60 mg daily. Coding Level of Care Code Est Pt Level 4 (30916) Complex EM visit Add On G2211 Diagnoses ILD (interstitial lung disease) J84.9 WISAM (obstructive sleep apnea) G47.33 Supplemental oxygen dependent Z99.81 Pulmonary edema J81.1
== END 2025-06-08 13:43 | disposition home or self-care (01) ==
LOC: HO.HPS 13:06
PROVIDERS: Visit Provider Internal Medicine Pulmonary Disease
DX: J84.9 Interstitial pulmonary disease, unspecified (principal); G47.33 Obstructive sleep apnea (adult) (pediatric); Z99.81 Dependence on supplemental oxygen; J81.1 Chronic pulmonary edema
CPT/HCPCS: 99214; G2211

== ENCOUNTER → 2025-06-08 13:05 | Outpatient (BNVA) | payer MEDICARE, OTHER, SELFPAY | PROVIDERS: Visit Provider Internal Medicine Pulmonary Disease | DX: J84.9 Interstitial pulmonary disease, unspecified (principal); G47.33 Obstructive sleep apnea (adult) (pediatric); J81.1 Chronic pulmonary edema; Z99.81 Dependence on supplemental oxygen | CPT/HCPCS: 99212 ==

== ENCOUNTER 2025-07-18 13:13 | Outpatient (AMB) | payer MEDICARE, OTHER, SELFPAY ==
--- NOTE | 2025-07-18 13:23 | A.OFFVIS_ITS ---
Vital Signs 07/18/25 13:26 Height 5 ft 3 in Weight 177 lb 4.026 oz BMI 31.4 BP 132/62 Blood Pressure Location Rt brachial Position Sitting Pulse 92 Pulse Source Pulse Oximeter Intake Visit Reasons: f/u hyperparathyroidism and hypothyroidism Intake Note: Patient present today for Hyperparathyroidism and Hypothyroidism follow up. Patient Coordinator Required: No Accompanied by: Self / Same As Patient Allergies codeine Allergy (Severe, Verified 07/18/25 13:27) felt like going to empagliflozin (From Jardiance) Allergy (Intermediate, Verified 07/18/25 13:27) Vomiting propranolol Allergy (Intermediate, Verified 07/18/25 13:27) dizziness Seasonal Allergies Allergy (Intermediate, Verified 07/18/25 13:27) Sneezing, vertigo Medication List - Last Reconciled 07/18/25 by Carson Paul MD acetaminophen (Tylenol) 650 mg PO QID PRN atorvastatin 40 mg PO DAILY calcium carbonate-vitamin D3 600 mg-20 mcg (800 unit) 1 tab PO DAILY cetirizine 10 mg PO DAILY furosemide 60 mg (1.5 x 40 mg) PO QAM 30 days gabapentin 100 mg PO BEDTIME magnesium 200 mg PO DAILY meclizine (Dramamine (meclizine)) 25 mg PO BID PRN melatonin 5 mg PO .qhs metoprolol succinate ER (Toprol XL) 50 mg PO BID naproxen sodium (Flanax (naproxen)) 220 mg PO BID PRN omeprazole 40 mg PO DAILY prednisone 7.5 mg (3 x 2.5 mg) PO DAILY 30 days prochlorperazine maleate (Compazine) 10 mg PO BID PRN Synthroid (levothyroxine) 100 mcg PO DAILY NS tizanidine 4 mg PO BID PRN tramadol 50 mg PO BID PRN HPI Comments Details: This is a 74-year-old white female previously seen by endocrinology for management multinodular goiter. Patient returns for visit today for new problem of increased PTH. Patient is currently on supplement 1000 IU vitamin D3 and 600 mg calcium. There is no history of kidney stones. DEXA bone density shows the absence of osteoporosis but low bone mass. There is no history of renal insufficiency. Recent 25 hydroxy vitamin-D level was low normal. No hx of bone fx . Recent blood tests [facility] did not have any PTH, 25 hydroxy vitamin-D were 24 hour urine results The patient is a 74-year-old female presenting with issues related to calcium and vitamin D levels. She reports experiencing fatigue, particularly noticeable mid-morning and in the afternoon, which may be related to her current health issues. The patient has a history of hyponatremia, which has shown some improvement. Recent lab work indicated borderline low calcium levels, and there is a need to repeat the lab work to monitor these levels accurately. The patient has been taking calcium and vitamin D supplements as part of her sony atment plan. She also takes magnesium, zinc, and vitamin K2 supplements, which she obtains over the counter. There have been issues with obtaining complete lab results, particularly concerning parathyroid hormone levels, which have been elevated and inconsistent. The patient has switched her primary care provider to a facility closer to her residence, which may facilitate easier access to lab services. - lab work obtained at [facility] showed slightly elevated PTH, slightly low calcium and 24 hour urine for calcium which was low normal. [facility] Medical History (Updated 05/11/25 @ 14:59 by Carson Paul MD) Hypothyroidism (acquired) Adverse reaction to drug Restless leg syndrome Pacemaker Lower thoracic back pain Bifascicular block Supplemental oxygen dependent CREST (calcinosis, Raynaud's phenomenon, esophageal dysfunction, sclerodactyly, telangiectasia) Dyspnea on exertion Pericardial effusion Hypothyroid Enlarged thyroid Hypertension Multinodular thyroid Telangiectasia Dysphagia Surgical History S/P placement of cardiac pacemaker S/P cardiac cath S/P tooth extraction Hx of colonoscopy H/O breast biopsy Family History Father Heart disease Sister Ovarian cancer Brother Heart attack Stroke Mother Thyroid disease Brother Asthma Social History Household Members: Spouse Housing: House Do you presently have visiting nurse or other home services: Yes ([facility] ,[place]) Alcohol intake: never Patient Tobacco Use Status: Former Tobacco user Tobacco use type: Cigarette Years Smoked: 20 +/- e-Cigarette/Vaping Use: Never Used Second Hand Smoke Exposure: Yes Advance Directives Date on File: 02/13/24 service: No Current occupational status: retired 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 which contains 1200 mg of calcium and 1600 IU of vitamin D3 Will otain repeat calcium, albumin, PTH and 25-D at [facility] ([facility]) as well as 24 hr urine for calcium and creatinine in 14 wks (2) Hypothyroidism (acquired): Code(s): E03.9 - Hypothyroidism, unspecified Category: Medical Plan: Clinically and biochemically euthyroid on levothyroxine 100 mcg Orders: Orders Parathyroid Hormone Intact 10 Weeks R79.89 - Other specified abnormal findings of blood chemistry Hemoglobin A1c Today R79.89 - Other specified abnormal findings of blood chemistry, Z00.00 - Encounter for general adult medical examination without abnormal findings Medications: Changed From calcium carbonate-vitamin D3 600 mg-20 mcg (800 unit) 1 tab PO DAILY 30 tabs 6RF To calcium carbonate-vitamin D3 600 mg-20 mcg (800 unit) 1 tab PO BID 60 tabs 6RF Coding Level of Care Code Est Pt Level 3 (53214) Diagnoses Increased PTH level R79.89 Hypothyroidism (acquired) E03.9
[2025-07-18 13:26] VITALS: BP 132/62; PULSE 92; BMI 31.4
--- OUTSIDE RECORDS SUMMARY | 2025-07-19 05:42 | XMS_ITS | Clinical Summary ---
Author Organization [facility] Address [address] [place] [id number] Phone Care Team Providers Care Head Athletic Trainer Name Role Phone Peace Ruano NP Primary [...] VACCINE (#1) 2025 COVID-19 VACCINE ( - 2024-2 6 season) 2025 RSV VACCINE (1 - 1-dose 75+ series) 2025 HEPATITIS A VACCINES Aged Out No long er eligible based on patient's age to complete this topic HIB VACCINES Aged Out No longer eligi ble based on patient's age to complete this topic IPV VACCINES Aged Out No longer eligi ble based on patient's age to complete this topic MENINGOCOCCAL VACCINES (ACWY) Aged Out No longer eligible based on patient's age to complete this topic MENINGOCOCCAL VACCINES (B) Aged Out N o longer eligible based on patient's age to complete this topic Medical Devices Not on file Insurance Member Subscriber Plan / Payer (Ef fective 2016-Present) Name:Rajani Almaraz Member ID:[id number] Relation to Subscriber:Self Name:Rajani Almaraz Subscriber ID:[id number] Payer ID:[id number] Group ID:Not on file Type:Medicare Address: [address] MEDICARE SUPPLEMENT MEDICARE PART A & B Member Subscriber Plan / Payer (Ef fective 2016-Present) Name:Rajani Almaraz Member ID:[id number] Relation to Subscriber:Self Name:Rajani Almaraz Subscriber ID:[id number] Payer ID:[id number] Group ID:Not on file Type:Medicare Address: [employer] [address] MEDICARE SUPPLEMENT MEDICARE PART A & B Member Subscriber Plan / Payer (Ef fective 2016-Present) Name:Rajani Almaraz Member ID:[id number] Relation to Subscriber:Self Name:Rajani Almaraz Subscriber ID:[id number] Payer ID:[id number] Group ID:Not on file Type:Medicare Address: [employer] [address] [place] [id number] [place] [address] MEDICARE SUPPLEMENT MEDICARE PART A & B MEDICARE SUPPLEMENT MEDICARE PART A & B MEDICARE SUPPLEMENT MEDICARE PART A & B MEDICARE SUPPLEMENT MEDICARE PART A & B MEDICARE SUPPLEMENT MEDICARE PART A & B [facility] MEDICARE SUPPLEMENT MEDICARE PART A & B [facility] MEDICARE SUPPLEMENT Member Subscriber Plan / Payer (Ef fective 2018-Present) Name:Rajani Almaraz Relation to Subscriber:Self Name:Rajani Almaraz Payer ID:Not on file Type:Indemnity Address: [place] [id number] Care Teams Head Athletic Trainer Relationship Specialty Start Date End Date Peace Ruano NP [address] [place] [id number] PCP - General Family Medicine 12/20/20 Additional Source Comments The information contained in this document represents components of the legal health record. It is not the complete legal health record.[facility]
== END 2025-07-18 13:56 | disposition home or self-care (01) ==
LOC: HO.ENCR 13:14
PROVIDERS: Visit Provider Internal Medicine Endocrinology, Diabetes & Metabolism
DX: R79.89 Other specified abnormal findings of blood chemistry (principal); E03.9 Hypothyroidism, unspecified
CPT/HCPCS: 99213

== ENCOUNTER → 2025-07-18 13:13 | Outpatient (BNVA) | payer MEDICARE, OTHER, SELFPAY | PROVIDERS: Visit Provider Internal Medicine Endocrinology, Diabetes & Metabolism | DX: E03.9 Hypothyroidism, unspecified (principal); E21.1 Secondary hyperparathyroidism, not elsewhere classified; R79.89 Other specified abnormal findings of blood chemistry; Z95.0 Presence of cardiac pacemaker; Z99.81 Dependence on supplemental oxygen; Z87.891 Personal history of nicotine dependence | CPT/HCPCS: 99212 ==

== ENCOUNTER 2025-07-31 13:32 | Outpatient (AMB) | payer MEDICARE, OTHER, SELFPAY ==
--- NOTE | 2025-07-31 13:51 | A.OFFVIS_ITS ---
Vital Signs 07/31/25 13:52 Height 5 ft 3 in Weight 179 lb 14.355 oz BMI 31.9 BP 100/56 L Blood Pressure Location Lt brachial Position Sitting Pulse 97 Pulse Source Pulse Oximeter Intake Visit Reasons: r/s 05/15/25 4 mos followup Print Graphic Designer Required: No Accompanied by: Self / Same As Patient Allergies codeine Allergy (Severe, Verified 07/18/25 13:27) felt like going to empagliflozin (From Jardiance) Allergy (Intermediate, Verified 07/18/25 13:27) Vomiting propranolol Allergy (Intermediate, Verified 07/18/25 13:27) dizziness Seasonal Allergies Allergy (Intermediate, Verified 07/18/25 13:27) Sneezing, vertigo Medication List - Last Reconciled 07/31/25 by Cristofer Bermudez MD acetaminophen (Tylenol) 650 mg PO QID PRN atorvastatin 40 mg PO DAILY calcium carbonate-vitamin D3 600 mg-20 mcg (800 unit) 1 tab PO BID cetirizine 10 mg PO DAILY furosemide 60 mg (1.5 x 40 mg) PO QAM 30 days gabapentin 100 mg PO BEDTIME magnesium 200 mg PO DAILY meclizine (Dramamine (meclizine)) 25 mg PO BID PRN melatonin 5 mg PO .qhs metoprolol succinate ER (Toprol XL) 25 mg PO ONCE naproxen sodium (Flanax (naproxen)) 220 mg PO BID PRN omeprazole 40 mg PO DAILY prednisone 7.5 mg (3 x 2.5 mg) PO DAILY 30 days prochlorperazine maleate (Compazine) 10 mg PO BID PRN Synthroid (levothyroxine) 100 mcg PO DAILY NS tizanidine 4 mg PO BID PRN tramadol 50 mg PO BID PRN HPI Comments Details: 74-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 She has been experiencing shortness of breath for long time. She was a smoker from age [age] and smoke heavily. She had pulmonary function test done recently which reveals some concern for emphysema. She has been on inhalers without any change in her breathing. She is saying she is able to walk a block and go up a flight of stairs but after that she gets shortness of breath which limits her activity. She has no chest discomfort. She underwent echocardiography to rule out pulmonary hypertension and there was no evidence of pulmonary hypertension on that. There was small pericardial effusion noticed. She has Raynaud's and hypertension and has been taking hydrochlorothiazide and amlodipine with good control blood pressure as well as Raynaud. She has been following with GI and Rheumatology. 06/01/23: She returns for follow-up. Her blood pressure is elevated in the office 150/80. Also on April 10 she had blood pressure checked which was 160/90. She has been taking hydrochlorothiazide every other day. She had echocardiography performed she showing small pericardial effusion but no tamponade physiology. She has small pericardial effusion before in July 2022. She is denying any significant chest discomfort. She is saying her breathing has been better since she has been on prednisone. She is taking 5 mg daily. 02/22/24: She is here for follow-up. Recent admission to [facility] with shortness of breath and hypoxia where CT scan was concerning for bilateral ground-glass infiltrates concerning for interstitial lung disease versus CHF. She also has recent COVID-19 infection. In November she was at [facility] with COVID-19 and bradycardia and had permanent pacemaker placed. While she was at [facility] she was advised to undergo left and right heart catheterization but she decided against it. She has seen pulmonology and her Lasix was increased from 20-60 mg but she has been mostly taking 40 mg at this point. She is saying her breathing is okay but she does get shortness of breath with exertion. She also has a continuous pulse ox machine and she has noted that her saturations are at times low in 70s but she also has Raynaud's. During her admission at [facility] echocardiography raise concern for mitral stenosis with moderate to severe MS. Overall she is stable. Denying any chest discomfort any other complaints. 03/21/24: She has had for follow-up. She continues to get shortness of breath with activities. She is saying that during ambulation such fall to 70s and then when she takes deep breaths the saturation improved 90s this is quite unusual for heart failure or valvular disease. She previously had [id number] heart catheterization when her filling pressures were normal. This was years ago though. She is denying any chest discomfort. She also is getting some episodes of coughing and wheezing in the morning. She sleeps quite flat in bed and has crest syndrome and probably gets bad acid reflux. Her heart rate is 88 with metoprolol 25 mg twice a day. 10/10/24: Here for f/u after recent admission at [facility] for CHF. She was not taking care of his diet and was taking too much salt. She was diuresed and sent home. She is feeling ok. She was given script for cardizem but she didnt start it yet. Her BP is borderline and I have advised her to hold off on starting it. She had PABLO at [facility] few months back which confirmed mitral valve to be moderate and she has moderate MS. 01/09/2025: She is here for follow-up. She has been doing quite well since the recent admission at [facility]. She is off oxygen at this point for last 4 months. Denying any orthopnea or PND. 07/31/2025 she is here for follow-up. She had some weight gain and dyspnea after salty food on . She said she took some extra Lasix. She has been struggling with Raynaud's unfortunately. Previously she was using calcium channel adair but it low blood pressure currently she is unable to use that. Her blood pressure in the office currently is also low. It is difficult to stop the Lasix because she already took extra doses due to volume overload. She is on minimum small dose of metoprolol. [facility] Medical History Hypothyroidism (acquired) Adverse reaction to drug Restless leg syndrome Pacemaker Lower thoracic back pain Bifascicular block Supplemental oxygen dependent CREST (calcinosis, Raynaud's phenomenon, esophageal dysfunction, sclerodactyly, telangiectasia) Dyspnea on exertion Pericardial effusion Hypothyroid Enlarged thyroid Hypertension Multinodular thyroid Telangiectasia Dysphagia Surgical History S/P placement of cardiac pacemaker S/P cardiac cath S/P tooth extraction Hx of colonoscopy H/O breast biopsy Family History Father Heart disease Sister Ovarian cancer Brother Heart attack Stroke Mother Thyroid disease Brother Asthma Social History Household Members: Spouse Housing: House Do you presently have visiting nurse or other home services: Yes (VNA ,PT) Alcohol intake: never Patient Tobacco Use Status: Former Tobacco user Tobacco use type: Cigarette Years Smoked: 20 +/- e-Cigarette/Vaping Use: Never Used Second Hand Smoke Exposure: Yes Advance Directives Date on File: 02/13/24 service: No Current occupational status: retired 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 Cognitive needs: Yes (walker) Hearing needs: No Vision needs: Yes (Glasses) Review of Systems Const Denies chills, Denies fatigue, Denies fever(s), Denies frequent falls, Denies weakness, Denies weight gain and Denies weight loss ENT Denies dizziness Card Denies chest pain, Denies leg edema, Denies lightheadedness, Denies palpitations, Denies dyspnea and Denies dyspnea on exertion Resp Denies cough, Denies dyspnea and Denies dyspnea on exertion GI Denies hematochezia Musc Denies abnormal gait, Denies muscle weakness, Denies numbness, Denies radiating pain into limb and Denies tingling Neuro Denies abnormal gait, Denies dizziness, Denies frequent falls, Denies numbness, Denies tingling and Denies weakness Endo Denies fatigue and Denies palpitations Physical Exam Vital Signs: Last Vital Signs Pulse 97 07/31/25 13:52 BP 100/56 L 07/31/25 13:52 BMI result Body Mass Index 31.9 GENERAL APPEARANCE: in no acute distress, pleasant. NECK: no carotid bruit, no jugular venous distention. SKIN: no suspicious lesions, warm and dry. HEART: apical mid diastolic murmur, regular rate and rhythm. LUNGS: clear to auscultation bilaterally. ABDOMEN: soft, nontender. EXTREMITIES: no edema. PERIPHERAL PULSES: equal. NEUROLOGIC: No gross deficits, AAO X 3 Assessment & Plan Assessment & Plan (1) Chronic diastolic heart failure: Code(s): I50.32 - Chronic diastolic (congestive) heart failure Category: Medical (2) Moderate mitral stenosis: Code(s): I05.0 - Rheumatic mitral stenosis Category: Medical (3) CREST (calcinosis, Raynaud's phenomenon, esophageal dysfunction, sclerodactyly, telangiectasia): Code(s): M34.1 - CR(E)ST syndrome Category: Medical Plan [age] year female with moderate mitral valve stenosis and chronic diastolic heart failure. She has been doing ok mostly. Volume status stable. c/w metoprolol and Lasix. Cannot take CCB due to low BP. SSRIs have some evidence for Raynaud's and I have decided to start her on low dose Fluoxetine. Hopefully this helps her symptoms. f/u in few months. Thank you for allowing me to participate in the care of your patient. Please feel free to contact me if you have any questions. Medications: New fluoxetine 20 mg PO DAILY 30 caps 0RF Changed From metoprolol succinate ER (Toprol XL) 50 mg PO BID 120 tabs 3RF To metoprolol succinate ER (Toprol XL) 25 mg PO ONCE Coding Level of Care Code Est Pt Level 4 (36633) Diagnoses Chronic diastolic heart failure I50.32 Moderate mitral stenosis I05.0 CREST (calcinosis, Raynaud's phenomenon, esophageal dysfunction, sclerodactyly, telangiectasia) M34.1
[2025-07-31 13:52] VITALS: BP 100/56; PULSE 97; BMI 31.9
--- OUTSIDE RECORDS SUMMARY | 2025-07-31 17:06 | XMS_ITS | Clinical Summary ---
Author Organization [employer] Address [address] [facility] [address] [place] [address] Care Team Providers Care Radiology Physician Assistant Name Role Phone Provider, Not In System [...] pain 08/28/2022 Esophageal reflux 11/12/2021 Inflammatory polyarthropathy (CMS/HCC) 2 Mixed hyperlipidemia 11/12/2021 Hypertension 01/09/2020 Hypothyroidism 01/09/2020 [...] 60 years or older (1 - Risk 50-74 years 1-dose series) 2000 Zoster Vaccines (1 of 2) 08/29/2014 07/04/2014 Colorectal Cancer Screening 11/21/2022 FIT 11/21/2022 11/21/2021, 10/30, 11/15/2021, Additional history exists FOBT 11/21/2022 11/21/2021, 10/29, 01/30/2020 Depression Screening 09/08/2023 09/08/2022, 09/08/19 23 SDOH Screening 09/08/2023 09/08/2022 Tobacco Screening 02/27/2024 02/26/2023 DTaP/Tdap/Td Vaccines (2 - Td or Tdap) 01/25/2025 01/25/2015, 08/31/2003 COVID-19 Vaccine (5 - season) 2025 09/08/2022, 08/26/2021, 12/07/2020, Additional history [...] PM EDT) Cholesterol, Total 124 (<200) MG/DL [facility] Triglyceride (mg/dL) in Serum/Plasma 116 (<150) MG/DL [facility] HDL Cholesterol 49 (>39) MG/DL [facility] LDL Cholesterol, Calculated 52 (0-130) MG/DL [facility] Non HDL Chol. (LDL+VLDL) 75 (<160) MG/DL [facility] Comment: Testing performed or reported by [facility], a Service of [facility], [address] [place] [address] Leo Peres MD, Manager Web [facility]# [id number] Blood Venous blood specimen / Unknown 02/26/2023 3:32 PM EDT 02/26/2023 3:35 PM EDT Peace WARNER LAB BLOOD ORDERABLES Final Resul t [facility] [address] [place] [id number] * FECAL OCCULT BLOOD, IMMUNOCHEMICAL (11/21/2021 8:36 AM EDT) Fecal Occult Blood, Immunochemical (FIT) NEGATIVE [facility] 11/21/2021 8:36 AM EDT Historical Provider LAB BODY FLUIDS AND STOOL S ORDERABLES Final Result [facility] [address] * Fecal immunochemical (11/21/2021) Fecal Immunoassay Test (External) negative Stool Rectal contents / Unknown Historical Provider LAB BODY FLUIDS AND STOOL S ORDERABLES Final Result from Last 3 Months or Most Recently Relevant to Health Maintenance Insurance [place] [phone] [facility] , [address] [place] [address] * Guarantor: Rajani Hart Account Type Relation to Patient Date of Phone Billing Address Dental Self Care Teams Radiology Physician Assistant Relationship Specialty Start Date End Date Provider, Not In System PCP - General Family Medicine 06/19/23
--- OUTSIDE RECORDS SUMMARY | 2025-07-31 17:06 | XMS_ITS | Continuity of Care Document ---
Author Organization [employer] Address [address] [place] [address] [address] [place], [place] Phone [phone] Care Team Providers Care Transmission System Operator Name Role Phone Dayan Barragan MD Care Team Information Rec eiver Unavailable Social History Type Date Description Comments Sex Female Sex Unknown
--- OUTSIDE RECORDS SUMMARY | 2025-07-31 17:06 | XMS_ITS | Encounter Summary ---
Author Organization [employer] Address [address] [facility] 7t [place] [address] Care Team Providers Care Complaint Manager Name Role Phone Peace Ruano Primary Care Provider Unavailab le Peace Ruano Unavailable Unavailable Provider, Not In System Primary Care Provider Un available Encounter Details Date Type Department Care Team (Late st Contact Info) Description 07/22/[address] [id number] Peace Ruano FNP Social History [...] on filedocumented in this encounter Care Teams Complaint Manager Relationship Specialty Start Date End Date Peace Ruano FNP PCP - General Family Medicine 06/27/22 06/18/23 Provider, Not In System PCP - General Family Medicine 06/19/23 Peace Ruano FNP Family Medicine 06/27/22 06/18/23 documented as of this encounter
--- OUTSIDE RECORDS SUMMARY | 2025-07-31 17:06 | XMS_ITS | Encounter Summary ---
Author Organization [employer] Address [address] [place] [address] Care Team Providers Care Corporate Associate Name Role Phone Provider, Not In System Primary Care Provider Un available Encounter Details Date Type Department Care Team (Late st Contact Info) Description 01/01/2024 Telephone [facility] [address] [place] [address] Provider, Not In System Social [...] on filedocumented in this encounter Care Teams Corporate Associate Relationship Specialty Start Date End Date Provider, Not In System PCP - General Family Medicine 06/19/23 documented as of this encounter
--- OUTSIDE RECORDS SUMMARY | 2025-07-31 17:06 | XMS_ITS | Clinical Summary ---
Author Organization [facility] Address [address] [place] [phone] Phone Care Team Providers Care [employer] [address] [employer] Name Role Phone Peace Ruano NP Primary [...] file Insurance MEDICARE PART A & B [facility] MEDICARE SUPPLEMENT MEDICARE PART A & B MEDICARE SUPPLEMENT MEDICARE PART A & B MEDICARE SUPPLEMENT MEDICARE PART A & B MEDICARE SUPPLEMENT MEDICARE PART A & B [facility] MEDICARE SUPPLEMENT MEDICARE PART A & B MEDICARE SUPPLEMENT MEDICARE PART A & B MEDICARE SUPPLEMENT MEDICARE PART A & B Member Subscriber Plan / Payer (Ef fective 2016-) Name:Rajani Almaraz Member ID:[id number] Relation to Subscriber:Self Name:Rajani Almaraz Subscriber ID:[id number] Payer ID:[id number] Group ID:Not on file Type:Medicare Address: [employer] [facility].[address] [id number] [facility] MEDICARE SUPPLEMENT MEDICARE PART A & B [facility] MEDICARE SUPPLEMENT Care Teams [address] [employer] Relationship Specialty Start Date End Date Peace Ruano NP [address] [place] [address] [phone] PCP - General Family Medicine 12/20/20 Additional Source Comments The information contained in this document represents components of the legal health record. It is not the complete legal health record.[facility]
== END 2025-07-31 14:18 | disposition home or self-care (01) ==
LOC: HO.HCS 13:33
PROVIDERS: Visit Provider Internal Medicine Cardiovascular Disease
DX: I50.32 Chronic diastolic (congestive) heart failure (principal); I05.0 Rheumatic mitral stenosis; M34.1 CR(E)ST syndrome
CPT/HCPCS: 99214

== ENCOUNTER → 2025-07-31 13:32 | Outpatient (BNVA) | payer MEDICARE, OTHER, SELFPAY | PROVIDERS: Visit Provider Internal Medicine Cardiovascular Disease | DX: I50.32 Chronic diastolic (congestive) heart failure (principal); I05.0 Rheumatic mitral stenosis; I11.0 Hypertensive heart disease with heart failure; Z87.891 Personal history of nicotine dependence; M34.1 CR(E)ST syndrome; Z95.0 Presence of cardiac pacemaker | CPT/HCPCS: 99212 ==

== ENCOUNTER 2025-08-17 12:52 | Outpatient (AMB) | payer MEDICARE, OTHER, SELFPAY ==
[2025-08-17 13:12] VITALS: BP 144/77; PULSE 78; O2SAT 94; BMI 30.3
--- NOTE | 2025-08-17 13:12 | A.OFFVIS_ITS ---
Vital Signs 08/17/25 13:12 Height 5 ft 3 in Weight 171 lb BMI 30.3 BP 144/77 H Blood Pressure Location Rt brachial Position Sitting Pulse 78 Pulse Source Pulse Oximeter Pulse Oximetry (%) 94 Oxygen Delivery Method Room Air Intake Visit Reasons: Pain with breathing Allergies codeine Allergy (Severe, Verified 08/17/25 13:20) felt like going to empagliflozin (From Jardiance) Allergy (Intermediate, Verified 08/17/25 13:20) Vomiting propranolol Allergy (Intermediate, Verified 08/17/25 13:20) dizziness Seasonal Allergies Allergy (Intermediate, Verified 08/17/25 13:20) Sneezing, vertigo HPI HPI Pain with breathing: Details: 74-year-old lady, former 40 pack smoker, quit 30 years prior, with underlying CREST under Rheumatology care, now followed for pulmonary component of dyspnea on exertion and 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 Patient respiratory symptoms are now controlled on prednisone 7.5 mg daily. She continues on Lasix 60 mg daily with reasonable control of her orthopnea lower extremity edema. Patient was recently briefly hospitalized at [facility] for what appears to be an esophageal spasm that improved with viscous lidocaine. She is also finishing prednisone taper. [facility] Medical History Hypothyroidism (acquired) Adverse reaction to drug Restless leg syndrome Pacemaker Lower thoracic back pain Bifascicular block Supplemental oxygen dependent CREST (calcinosis, Raynaud's phenomenon, esophageal dysfunction, sclerodactyly, telangiectasia) Dyspnea on exertion Pericardial effusion Hypothyroid Enlarged thyroid Hypertension Multinodular thyroid Telangiectasia Dysphagia Surgical History S/P placement of cardiac pacemaker S/P cardiac cath S/P tooth extraction Hx of colonoscopy H/O breast biopsy Family History Father Heart disease Sister Ovarian cancer Brother Heart attack Stroke Mother Thyroid disease Brother Asthma Social History Household Members: Spouse Housing: House Do you presently have visiting nurse or other home services: Yes (VNA ,PT) Alcohol intake: never Patient Tobacco Use Status: Former Tobacco user Tobacco use type: Cigarette Years Smoked: 20 +/- e-Cigarette/Vaping Use: Never Used Second Hand Smoke Exposure: Yes Advance Directives Date on File: 02/13/24 service: No Current occupational status: retired 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 Cognitive needs: Yes (walker) Hearing needs: No Vision needs: Yes (Glasses) Review of Systems Const Denies daytime sleepiness, Denies excessive sweating, Denies fatigue, Denies fever(s), Denies lethargy, Denies malaise, Denies night sweats, Denies snoring and Denies weight loss Eyes Denies blurry vision and Denies itchy eyes ENT Denies nasal congestion, Denies post nasal drip, Denies sinus pain, Denies sinus pressure and Denies other ( Thrush) Card Denies chest pain, Denies pedal edema, Denies dyspnea, Denies orthopnea and Denies paroxysmal nocturnal dyspnea Resp Denies cough, Denies hemoptysis, Denies excessive phlegm production, Denies dyspnea, Denies snoring and Denies wheezing GI Denies abdominal pain and Denies heartburn Musc Denies myalgias, Denies arthralgias and Denies joint swelling Skin/Breast Denies rash Neuro Denies memory loss and Denies seizure-like activity Psych Denies abnormal sleep pattern, Denies anxiety and Denies memory loss Endo Denies excessive sweating, Denies fatigue and Denies heat intolerance Kenneth/Lymph Denies easy bruising Aller/Immun Denies itchy eyes, Denies seasonal rhinorrhea and Denies wheezing Physical Exam Vital Signs: Last Vital Signs Pulse 78 08/17/25 13:12 BP 144/77 H 08/17/25 13:12 Pulse Ox 94 08/17/25 13:12 Oxygen Delivery Method Room Air 08/17/25 13:12 BMI result Body Mass Index 30.3 Const General: no acute distress, alert and awake Nutritional Appearance: not obese Orientation/consciousness: Other orientation findings ( oriented) HEENT Head: Yes atraumatic Eyes General: appearance normal, both eyes and all related structures Sclerae: sclerae normal EOM: EOMs intact bilaterally Neck Neck: Yes no lymphadenopathy, Yes trachea midline and Yes supple Lymphatic: no lymphadenopathy noted Resp Effort & Inspection: normal respiratory effort and no respiratory distress Auscultation: clear to auscultation bilaterally Cardio Rate: regular rate Rhythm: regular rhythm Heart sounds: no gallops, no murmurs and no rubs GI Palpation (GI): Soft to palpation and Other GI palpation findings present ( Nontender) Auscultation: normal bowel sounds Skin General skin exam: other ( warm) Extrem General: Yes no pedal edema, No clubbing and No cyanosis Assessment & Plan Assessment & Plan (1) ILD (interstitial lung disease): Code(s): J84.9 - Interstitial pulmonary disease, unspecified Category: Medical Plan: Well controlled on current regimen prednisone 7.5 mg daily. Continue current regimen. (2) Pulmonary edema: Code(s): J81.1 - Chronic pulmonary edema Category: Medical Plan: Reasonable control on Lasix 60 mg daily. Continue current regimen. Coding Level of Care Code Est Pt Level 4 (87324) Diagnoses ILD (interstitial lung disease) J84.9 Pulmonary edema J81.1
--- OUTSIDE RECORDS SUMMARY | 2025-08-17 16:44 | XMS_ITS | Clinical Summary ---
Author Organization [employer] Address [address] [facility] [address] [place] [address] Care Team Providers Care Watershed Program Manager Name Role Phone Provider, Not In [...] PM EDT) Cholesterol, Total 124 (<200) MG/DL [facility] Triglyceride (mg/dL) in Serum/Plasma 116 (<150) MG/DL [facility] HDL Cholesterol 49 (>39) MG/DL [facility] LDL Cholesterol, Calculated 52 (0-130) MG/DL [facility] Non HDL Chol. (LDL+VLDL) 75 (<160) MG/DL [facility] Comment: Testing performed or reported by [facility], a Service of [facility], [address] [place] [id number] Leo Peres MD, Asian Studies Program Chair [facility]# [id number] Blood Venous blood specimen / Unknown 02/26/2023 3:32 PM EDT 02/26/2023 3:35 PM EDT Peace WARNER LAB BLOOD ORDERABLES Final Resul t [facility] [address] [place] [id number] * FECAL OCCULT BLOOD, IMMUNOCHEMICAL (11/21/2021 8:36 AM EDT) Fecal Occult Blood, Immunochemical (FIT) NEGATIVE [facility] 11/21/2021 8:36 AM EDT Historical Provider LAB BODY FLUIDS AND STOOL S ORDERABLES Final Result [facility] [address] * Fecal immunochemical (11/21/2021) Fecal Immunoassay Test (External) negative Stool Rectal contents / Unknown Historical Provider LAB BODY FLUIDS AND STOOL S ORDERABLES Final Result from Last 3 Months or Most Recently Relevant to Health Maintenance Insurance [place] [phone] [facility] , [address] [place] [address] * Guarantor: Rajani Hart Account Type Relation to Patient Date of Phone Billing Address Dental Self Care Teams Watershed Program Manager Relationship Specialty Start Date End Date Provider, Not In System PCP - General Family Medicine 06/19/23
--- OUTSIDE RECORDS SUMMARY | 2025-08-17 16:44 | XMS_ITS | Encounter Summary ---
Author Organization [employer] Address [address] [place] [address] Care Team Providers Care Body Builder Apprentice Name Role Phone Peace Ruano Primary Care Provider Unavailab le Peace Ruano Unavailable Unavailable Provider, Not In System Primary Care Provider Un available Encounter Details Date Type Department Care Team (Late st Contact Info) Description 07/22/[address] [address] Peace Ruano FNP Social History [...] on filedocumented in this encounter Care Teams Body Builder Apprentice Relationship Specialty Start Date End Date Peace Ruano FNP PCP - General Family Medicine 06/27/22 06/18/23 Provider, Not In System PCP - General Family Medicine 06/19/23 Peace Ruano FNP Family Medicine 06/27/22 06/18/23 documented as of this encounter
--- OUTSIDE RECORDS SUMMARY | 2025-08-17 16:44 | XMS_ITS | Encounter Summary ---
Author Organization [employer] Address [address] [place] [address] Care Team Providers Care Home Specialist Name Role Phone Provider, Not In System Primary Care Provider Un available Encounter Details Date Type Department Care Team (Late st Contact Info) Description 01/01/2024 Telephone [facility] [address] [place] [address] Provider, Not In System Social [...] on filedocumented in this encounter Care Teams Home Specialist Relationship Specialty Start Date End Date Provider, Not In System PCP - General Family Medicine 06/19/23 documented as of this encounter
--- OUTSIDE RECORDS SUMMARY | 2025-08-17 16:44 | XMS_ITS | Continuity of Care Document ---
Author Organization [employer] [facility] Address [address] [place] [address] [address] [place], [place] Phone [phone] Care Team Providers Care Mental Health Worker Name Role Phone Dayan Barragan MD Care Team Information Rec eiver Unavailable Social History Type Date Description Comments Sex Female Sex Unknown
--- OUTSIDE RECORDS SUMMARY | 2025-08-17 16:44 | XMS_ITS | Clinical Summary ---
Author Organization 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 Name Role Phone Peace Ruano NP Primary [...] Insurance MEDICARE PART A & B [facility] MEDICARE SUPPLEMENT MEDICARE PART A & B MEDICARE SUPPLEMENT MEDICARE PART A & B MEDICARE SUPPLEMENT MEDICARE PART A & B MEDICARE SUPPLEMENT MEDICARE PART A & B [facility] MEDICARE SUPPLEMENT MEDICARE PART A & B MEDICARE SUPPLEMENT MEDICARE PART A & B MEDICARE SUPPLEMENT MEDICARE PART A & B Member Subscriber Plan / Payer (Ef fective 2016-) Name:Rajani Almaraz Member ID:[id number] Relation to Subscriber:Self Name:Rajani Almaraz Subscriber ID:[id number] Payer ID:[id number] Group ID:Not on file Type:Medicare Address: [facility].[address] [id number] [facility] MEDICARE SUPPLEMENT MEDICARE PART A & B [facility] MEDICARE SUPPLEMENT Care Teams 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 It is not the complete legal health record.[facility]
== END 2025-08-17 13:35 | disposition home or self-care (01) ==
LOC: HO.HPS 12:53
PROVIDERS: Visit Provider Internal Medicine Pulmonary Disease
DX: J84.9 Interstitial pulmonary disease, unspecified (principal); J81.1 Chronic pulmonary edema
CPT/HCPCS: 99214

== ENCOUNTER → 2025-08-17 12:52 | Outpatient (BNVA) | payer MEDICARE, OTHER, SELFPAY | PROVIDERS: Visit Provider Internal Medicine Pulmonary Disease | DX: J81.1 Chronic pulmonary edema (principal); J84.9 Interstitial pulmonary disease, unspecified | CPT/HCPCS: 99212 ==